=== PATIENT | male | born 1965 | race Caucasian/White ===

== ENCOUNTER 2016-04-01 15:35 | Inpatient (IN) | payer OTHER ==
[~2016-04-01] VITALS: Ht 170.2 cm; Wt 70.0 kg
[~2016-04-01 15:35] MED LIST: BACTDS PO; CARB100T2 PO; CEPH-443 PO; FLUO40CA10 PO; GABA300C16 PO; HYDR-902 PO; INSU100C SC; LANT3I SC; PHEN100C PO; QUET100T PO; TRAM50TA2 PO
[2016-04-01 16:15] VITALS: Ht 170.2 cm; Wt 70.0 kg
[2016-04-01] MEDS ORDERED: PIPER-TAZO 3.375 GM IV (PMX) 100 ML IVPB STA (21:11)
--- NOTE | 2016-04-01 21:28 | ERA ---
ER Documentation Chief Complaint Date/Time DATE: 04/01/16 TIME: 21:17 Chief Complaint RIGHT TOE DIABETIC FOOT ULCER,HX RIGHT TOE AMPUTATION HPI 51-year-old male with a history of bipolar disease, depression, seizure disorder , diabetes mellitus type 2, diabetic foot ulcers with osteomyelitis and chronic alcohol abuse but sober for 30 days ambulatory to the ED complaining of worsening pain, swelling, redness to the lateral aspect of his right foot and fifth toe. No recent history of trauma or injury. He had an MRI done March 28, 2016, impression: Osteomyelitis of the fifth metatarsal head and fifth proximal phalanx with associated prominent cellulitis, osteomyelitis of the first metatarsal bone and first proximal phalanx with associated prominent cellulitis progressive in the interval between studies and prominent tenosynovitis of the flexor hallux longus tendon. No chest pain or palpitations. No shortness of breath or cough. Denies abdominal pain, nausea vomiting. No fevers or chills. He is followed by Podiatry, Dr. Cline ROS All systems reviewed and are negative except as per history of present illness. Medications Home Meds Active Scripts Tramadol HCl (Tramadol HCl) 50 Mg Tablet, 50 MG PO Q6 Y for PAIN, #10 TAB Prov:LAINA CRUZ MD 12/28/15 Reported Medications Insulin Glargine* (Lantus*) 100 Unit/Ml Soln, 15 UNIT SC QHS, #1 VIAL 04/01/16 Gabapentin* (Gabapentin*) 300 Mg Capsule, 300 MG PO BID, #60 CAP 07/21/15 Carbamazepine* (Carbamazepine*) 100 Mg Tab.chew, 200 MG PO QAM, #60 TAB.CHEW 06/26/15 Quetiapine Fumarate* (Seroquel*) 100 Mg Tablet, 100 MG PO QHS, TAB 10/22/14 Fluoxetine Hcl* (Prozac*) 40 Mg Capsule, 40 MG PO QAM, CAP 10/22/14 Phenytoin* Sodium Extended (Dilantin*) 100 Mg Capsule, 300 MG PO BID, CAP 10/22/14 Insulin Lispro (Humalog) 100 U/Ml Cartridge, 0 SC SLIDING SCALE AC, EA 111-150 = 1 UNIT 151-200 = 2 UNITS 201-250 = 4 UNITS 251-300 = 6 UNITS 301-350 = 8 UNITS 351-400 = 10 UNITS 401-450 = 12 UNITS 10/22/14 Discontinued Scripts Sulfamethoxazole-Trimethoprim* (Bactrim* DS) 800-160 Mg Tab, 1 TAB PO BID for 7 Days, TAB Prov:LAINA CRUZ MD 12/28/15 Cephalexin* (Keflex*) 500 Mg Capsule, 500 MG PO QID for 7 Days, CAP Prov:LAINA CRUZ MD 12/28/15 Sulfamethoxazole-Trimethoprim* (Bactrim* DS) 800-160 Mg Tab, 1 TAB PO BID for 7 Days, TAB Prov:LAINA CRUZ MD 11/09/15 Cephalexin* (Keflex*) 500 Mg Capsule, 500 MG PO QID for 7 Days, CAP Prov:LAINA CRUZ MD 11/09/15 Hydrocodone/Acetaminophen (Sullivan 10-325 Tablet) 1 Each Tablet, 1 TAB PO Q6H Y for PAIN, #12 TAB Prov:LAINA CRUZ MD 11/09/15 Insulin Glargine* (Lantus*) 100 Unit/Ml Soln, 10 UNIT SC HS for 30 Days, 3 Refills Prov:TI TATE 07/28/15 Allergies Allergies: Coded Allergies: No Known Drug Allergy (Verified Allergy, Unknown, 04/01/16) PMhx/Soc Reviewed in chart. As per HPI. History of Surgery: Yes (RIGHT LEG , R R foot amputation.) Anesthesia Reaction: No Hx Neurological Disorder: Yes (SEIZURES) Hx Respiratory Disorders: No Hx Cardiac Disorders: Yes (HTN ,HIGH CHOLESTEROL) Hx Psychiatric Problems: Yes (depression/anxiety) Hx Alcohol Use: Yes (OCCASIONAL) Hx Substance Use: Yes Hx Tobacco Use: No Smoking Status: Former smoker FmHx Reviewed in chart. Not relevant to presenting complaint. Physical Exam Vitals Vital Signs Date Time Temp Pulse Resp B/P Pulse Ox O2 Delivery O2 Flow Rate FiO2 04/01/16 23:09 98.4 69 16 159/89 99 Room Air 04/01/16 22:20 98.4 78 16 142/84 98 Room Air 04/01/16 16:15 98.5 91 18 157/77 98 Physical Exam Const: Alert, no acute distress. Head: Atraumatic Eyes: Normal Conjunctiva ENT: Normal External Ears, Nose and Mouth. Neck: Full range of motion..~ No meningismus. Resp: Clear to auscultation bilaterally Cardio: Regular rate and rhythm, no murmurs Abd: Soft, non tender, non distended. Normal bowel sounds Skin: No petechiae or rashes Back: No midline or flank tenderness Ext: Right foot: Swelling, tenderness and erythema of the lateral aspect of the foot and fifth toe. Deep ulceration with skin avulsion. No subcutaneous crepitus. Neur: Awake and alert. No focal deficit. Psych: Normal Mood and Affect Result Diagram: 04/01/16212404/01/162124 Results 24 hrs Laboratory Tests Test 04/01/16 21:05 04/01/16 21:25 04/01/16 21:30 Carbamazepine (Tegretol) Level < 3.0ug/ml Phenytoin (Dilantin) Level < 3.0ug/ml Alanine Aminotransferase (ALT/SGPT) 56IU/L Albumin 4.6g/dl Albumin/Globulin Ratio 1.15 Alkaline Phosphatase 518IU/L Anion Gap 19 Aspartate Amino Transf (AST/SGOT) 29IU/L Basophils # 0.110^3/ul Basophils % 0.8% Blood Morphology Comment Blood Urea Nitrogen 18mg/dl Calcium Level 10.0mg/dl Carbon Dioxide Level 27mmol/L Chloride Level 92mmol/L Creatinine 0.89mg/dl Direct Bilirubin 0.00mg/dl Eosinophils # 0.310^3/ul Eosinophils % 2.6% Globulin 4.00g/dl Glucose Level 353mg/dl Hematocrit 36.1% Hemoglobin 12.2g/dl Indirect Bilirubin 0.0mg/dl Lymphocytes # 1.310^3/ul Lymphocytes % 11.7% Mean Corpuscular Hemoglobin 28.9pg Mean Corpuscular Hemoglobin Concent 33.7g/dl Mean Corpuscular Volume 85.8fl Mean Platelet Volume 8.7fl Monocytes # 0.810^3/ul Monocytes % 6.8% Neutrophils # 9.010^3/ul Neutrophils % 78.1% Nucleated Red Blood Cells # 0.010^3/ul Nucleated Red Blood Cells % 0.0/100WBC Platelet Count 03796^3/UL Potassium Level 4.8mmol/L Red Blood Count 4.2110^6/ul Red Cell Distribution Width 13.7% Sodium Level 133mmol/L Total Bilirubin 0.0mg/dl Total Protein 8.6g/dl White Blood Count 11.510^3/ul Bedside Glucose 349mg/dL Current Medications Medications (Trade) Dose Ordered Sig/Nidia Route PRN Reason Start Time Stop Time Status Last Admin Dose Admin Piperacillin Sod/ Tazobactam Sod 100 ml @ 200 mls/hr ONCE STAT IVPB 04/01/16 21:11 04/01/16 21:40 DC 04/01/16 21:41 Vancomycin HCl (Vancocin) 250 ml @ 125 mls/hr ONCE IVPB 04/01/16 21:30 04/01/16 23:29 DC 04/01/16 22:15 Acetaminophen/ Hydrocodone Bitart (Sullivan (10325)) 1 tab ONCE ONCE PO 04/01/16 22:30 04/01/16 22:31 DC 04/01/16 22:14 Ondansetron HCl (Zofran Inj) 4 mg BRIDGE ORDER PRN IV NAUSEA AND/OR VOMITING 04/01/16 22:30 04/02/16 22:29 Acetaminophen (Tylenol Tab) 650 mg ER BRIDGE PRN PO MILD PAIN/FEVER 04/01/16 22:30 04/02/16 22:29 Insulin Glargine (Lantus) 10 unit QHS SC 04/02/16 21:00 UNV Insulin Aspart (Novolog Insulin Pen) NOVOLOG *MILD* ALGORITHM WITH MEALS BEDTIME SC 04/02/16 08:00 UNV Miscellaneous Information (* Miscellaneous Pharmacy Order) HYPOGLYCEMIA PROTOCOL w... ONCE ONCE XX 04/02/16 01:00 04/02/16 01:01 UNV Miscellaneous Information (* Miscellaneous Pharmacy Order) Discontinue Glyburide, Glipizide,... ONCE ONCE XX 04/02/16 01:00 04/02/16 01:01 UNV Miscellaneous Information (* Miscellaneous Pharmacy Order) Discontinue all previ... ONCE ONCE XX 04/02/16 01:00 04/02/16 01:01 UNV Vancomycin HCl VANCOMYCIN PER PHARMACY PER PROTOCOL XX 04/02/16 01:00 UNV Piperacillin Sod/ Tazobactam Sod (Zosyn 3.375gm/ 100 ml (Pmx)) 100 ml @ 200 mls/hr Q8H IVPB 04/02/16 01:00 UNV Acetaminophen (Tylenol Tab) 650 mg Q4H PRN PO pain/fever 04/02/16 01:00 UNV Ondansetron HCl (Zofran Inj) 4 mg Q4H PRN IV nausea 04/02/16 01:00 UNV Morphine Sulfate (morphine) 4 mg Q4H PRN IV pain 04/02/16 01:00 UNV Carbamazepine (Tegretol) 200 mg QAM PO 04/02/16 09:00 UNV Fluoxetine HCl (Prozac) 40 mg QAM PO 04/02/16 09:00 UNV Gabapentin (Neurontin) 300 mg BID PO 04/02/16 09:00 UNV Phenytoin (Dilantin) 300 mg BID PO 04/02/16 09:00 UNV Quetiapine Fumarate (Seroquel) 100 mg QHS PO 04/02/16 21:00 UNV Procedures/MDM DOCUMENTS REVIEWED: ED nurse, prior ED, prior records ED COURSE: Wound culture. Zosyn and vancomycin. Sullivan 10. MEDICAL DECISION MAKIN-year-old male with a history of bipolar disease, depression, seizure disorder, diabetes mellitus type 2, diabetic foot ulcers with osteomyelitis and chronic alcohol abuse but sober for 30 days ambulatory to the ED complaining of worsening pain, swelling, redness to the lateral aspect of his right foot and fifth toe. Patient with worsening cellulitis and MRI confirmed osteomyelitis of the right foot. No ascending lymphangitis or necrotizing fasciitis. No criteria for systemic inflammatory response syndrome or sepsis. Hyperglycemia without DKA. Patient just drank a Dr. Pepper prior to blood draw. Will require admission for intravenous antibiotics, podiatry consult, further evaluation and management. Counseled patient regarding diagnosis, diagnostic results and plan for admission. CALLS/CONSULTS: Time 22:15, Dr. Marek Plata, Recommends admission to [facility]. PATIENT CARE TRANSITIONED: Time: 22:30, Dr. Jara Departure Diagnosis: Primary Impression: Osteomyelitis of right foot Qualified Code: M86.9 - Osteomyelitis of right foot, unspecified chronicity Additional Impressions: Diabetes mellitus type 2 in nonobese Hyperglycemia due to type 2 diabetes mellitus Qualified Code: E11.65 - Type 2 diabetes mellitus with hyperglycemia, with long-term current use of insulin Cellulitis of right foot History of seizure disorder History of alcohol abuse Diabetic foot infection Condition: Serious ROSANNE GUADALUPE MD Apr 01, 2016 21:28
[2016-04-01] MEDS ORDERED: VANCOMYCIN 1 GM (PMX) 250 ML IVPB SCH (21:30)
[2016-04-01] MEDS ORDERED: LANT3I SC (21:36)
[2016-04-01 21:56] LABS: BASOPHIL # 0.1 10^3/ul (0.0-0.1); BASOPHILS % 0.8 % (0.0-2.0); EOSINOPHILS # 0.3 10^3/ul (0.0-0.5); EOSINOPHILS % 2.6 % (0.0-7.0); HEMATOCRIT 36.1 % (42.0-52.0); HEMOGLOBIN 12.2 g/dl (14.0-18.0); LYMPHOCYTES # 1.3 10^3/ul (0.8-2.9); LYMPHOCYTES % 11.7 % (15.0-51.0); MEAN CORPUSCULAR HEMOGLOBIN 28.9 pg (29.0-33.0); MEAN CORPUSCULAR HGB CONC 33.7 g/dl (32.0-37.0); MEAN CORPUSCULAR VOLUME 85.8 fl (82.0-101.0); MEAN PLATELET VOLUME 8.7 fl (7.4-10.4); MONOCYTE # 0.8 10^3/ul (0.3-0.9); MONOCYTES % 6.8 % (0.0-11.0); NEUTROPHILS % 78.1 % (39.0-77.0); PLATELET COUNT 460 10^3/UL (140-440); RED BLOOD COUNT 4.21 10^6/ul (4.70-6.10); RED CELL DISTRIBUTION WIDTH 13.7 % (11.5-14.5); UNCORRECTED WBC 11.5 10^3/ul (4.8-10.8); WHITE BLOOD COUNT 11.5 10^3/ul (4.8-10.8)
[2016-04-01 21:59] LABS: ALBUMIN 4.6 g/dl (3.3-4.9)
[2016-04-01 22:00] LABS: POTASSIUM 4.8 mmol/L (3.5-5.1)
[2016-04-01 22:02] LABS: ALBUMIN/GLOBULIN RATIO 1.15; CONDITION 1; CREATININE 0.89 mg/dl (0.61-1.24); TOTAL PROTEIN 8.6 g/dl (6.1-8.1)
[2016-04-01 22:24] LABS: CARBAMAZEPINE (TEGRETOL) < 3.0 ug/ml (8.0-12.0)
[2016-04-01] MEDS ORDERED: HYDROCODONE/APAP (10/325) TAB PO ONE (22:30)
[2016-04-01] MEDS ORDERED: ONDANSETRON 4 MG INJ IV PRN (22:30)
[2016-04-01] MEDS ORDERED: ACETAMINOPHEN 325 MG TAB PO PRN (22:30)
--- NOTE | 2016-04-01 23:32 | RADRPT ---
PROCEDURE: XR Foot. CLINICAL INDICATION: Trauma. TECHNIQUE: AP, lateral and oblique views of the right foot was obtained. COMPARISON: 07/25/2015 FINDINGS: Previous amputation of the second digit at the metatarsophalangeal joint is noted. There is new tad truction of the base of the first proximal phalanx and distal metatarsal bone with surrounding perio steal reaction. Patchy lucencies are noted throughout the fifth phalanx. There is regional soft tiss ue swelling. IMPRESSION: Osteomyelitis of the first metatarsal bone and proximal phalanx as well as the fifth phalanx. RPTAT: HIKT .Rusty Mishra MD, MD Date Time Electronically viewed and signed by .Rusty Mishra MD, on 04/01/2016 23:31 .T/
--- NOTE | 2016-04-02 00:51 | QN ---
Documentation Comment H&P dict a/p 1. osteomyelitis noted on recent outpatient MRI, plan pods eval and anticipate surgical debridement. Patient is NOT a good candidate for home health IV and refuses institutional placement 2. DM 3. sseizure disorder ESTELA MALDONADO MD Apr 02, 2016 00:51
[2016-04-02] MEDS ORDERED: VANCOMYCIN IV PER PHARMACY XX SCH (01:00)
[2016-04-02] MEDS: AMLODIPINE 5 MG TAB PO SCH ×3 (01:00→22:17)
[2016-04-02] MEDS: PIPER-TAZO 3.375 GM IV (PMX) 100 ML IVPB SCH ×3 (01:00→17:55)
[2016-04-02] MEDS ORDERED: DEXTROSE 50% 50 ML SYRINGE IV PRN ×2 (01:30)
[2016-04-02] MEDS ORDERED: GLUCOSE GEL 15 GRAM TUBE PO PRN ×2 (01:30)
[2016-04-02] MEDS ORDERED: GLUCAGON 1 MG INJ IM PRN (01:30)
[2016-04-02] MEDS ORDERED: GLUCOSE GEL 15 GRAM TUBE BUCCAL PRN (01:30)
--- NOTE | 2016-04-02 01:35 | RADRPT ---
PROCEDURE: US bilateral lower extremity venous Doppler CLINICAL INDICATION: Bilateral swelling TECHNIQUE: Multiple sonographic images of the bilateral lower extremity deep venous system was obt ained utilizing grayscale, color-flow, compressive sonography and Doppler imaging with augmentation. COMPARISON: There are no similar studies submitted for comparison. FINDINGS: There is normal compressibility and flow within the bilateral common femoral, superficial femoral, p opliteal, and calf veins. IMPRESSION: No evidence of DVT within the lower extremities. RPTAT: HIKT .Rusty Mishra MD, MD Date Time Electronically viewed and signed by .Rusty Mishra MD, MD on 04/02/2016 01:35 .T/
[2016-04-02] MEDS: morphine 4 MG/ML VIAL IV PRN ×5 (01:45→22:23)
[2016-04-02] MEDS ORDERED: ACCUCHECK AT 2AM (Patients on SS coverage) XX SCH (02:00)
[2016-04-02] MEDS: INSULIN ASPART [NOVOLOG] 3 ML PEN SC SCH ×5 (05:20→22:22)
[2016-04-02] MEDS ORDERED: ENALAPRILAT 1.25 MG INJ IV ONE (05:30)
[2016-04-02] MEDS: ONDANSETRON 4 MG INJ IV PRN (05:33)
[2016-04-02] MEDS: VANCOMYCIN 1 GM in NS 250 ML IVPB SCH ×2 (05:33→17:55)
--- NOTE | 2016-04-02 05:35 | HP ---
DATE OF ADMISSION: 04/01/2016 CHIEF COMPLAINT: Right foot pain and swelling. HISTORY OF PRESENT ILLNESS: Mr. Bedolla presents to the emergency room at [facility] with p ain in the right foot and swelling in the same location, which he states has been present for some t roxane; he does not remember exactly how long. He has been seeing his primary care doctor and his podi atrist about this. He was referred for an MRI scan and he brings the report with him. The report s hows a collection of fluid around the head of the first and the fifth metatarsal, consistent with os teomyelitis. The patient has a prior diagnosis of osteomyelitis and was admitted to this hospital l july, where he had an amputation of the 2nd toe. PAST MEDICAL HISTORY: Significant for diabetes mellitus, using insulin, hypertension, seizure disor pearl. MEDICATIONS IN OUTPATIENT: Include: 1. Lantus 15 units daily, sliding scale. 2. Tegretol 200 mg daily. 3. Prozac 40 mg daily. 4. Neurontin 300 mg b.i.d. 5. Phenytoin 300 mg b.i.d. 6. Seroquel 100 mg at bedtime. 7. Tramadol p.r.n. ALLERGIES: NO KNOWN DRUG ALLERGIES. SOCIAL HISTORY: Patient lives at home in [place] by himself. He denies tobacco or illicit drug us e. States he is 30 days clean from alcohol at this point in time. FAMILY HISTORY: Noncontributory. REVIEW OF SYSTEMS: Five systems reviewed and found not to be revealing. PHYSICAL EXAMINATION: VITAL SIGNS: Blood pressure is 159/89, pulse rate 69, respirations 16, temperature is 98.4. GENERAL: Pleasant man in no acute distress. Alert and oriented x3. HEENT: Normocephalic, atraumatic without evident scleral icterus, perioral cyanosis. Mucous membra boo are moist. NECK: Soft and supple without masses. No evidence of jugular venous distention or carotid bruits. CHEST: Clear to auscultation and percussion bilaterally. HEART: Regular rate and rhythm, S1-S2, no added sounds. ABDOMEN: Soft, nontender, nondistended without palpable hepatosplenomegaly. EXTREMITIES: Without clubbing or cyanosis. There is right greater than left leg edema. The right foot shows a well-healed scar at the location of the prior second toe amputation. There is severe s welling without any discoloration of the great toe in the first MTP joint. There is, similarly, swe lling with an area of small ulceration on the lateral aspect of the fifth toe with a great deal of w johan discoloration and maceration of the skin in this location with great pain with manipulation of the toe. SKIN: Otherwise, without rashes. NEUROLOGIC: Cranial nerves III through XII are intact. Tone, power, and coordination intact x4 garza bs. Interestingly, the patient appears to have intact sensation of both feet. LABORATORY STUDIES: Reveal a hemoglobin of 12.2 g/dL, white count 11,500, platelets of 160,000. So dium 133, potassium 4.8, chloride 92, bicarbonate 27, BUN 18, creatinine 0.89, glucose 353. Liver f unction tests revealed AST 29, ALT 56, alkaline phosphatase 518, total bilirubin 0.0. Foot x-ray co nfirms the findings as reported in the MRI with osteomyelitis of the 1st and 5th metatarsals. ASSESSMENT AND PLAN: 1. Osteomyelitis of the foot. Will obtain podiatry evaluation. Anticipate the patient will requir e surgical debridement. Start antibiotics at this time. 2. Diabetes. Continue Lantus, Accu-Cheks, and sliding scale. 3. Hypertension, add medications. 4. Rule out deep venous thrombosis, right leg, in light of swelling. 5. Hypertension, add current medication. 6. Prophylaxis with Lovenox after determination of need for surgical treatment. Dictated By: ESTELA MALDONADO MD RER/NTS Conf#: [id number] DID#: [id number]
[2016-04-02 07:45] VITALS: TEMP 98
[2016-04-02 08:11] VITALS: BP 161/101; RESP 20
[2016-04-02] MEDS: GABAPENTIN 300 MG CAP PO SCH ×2 (09:53→22:16)
[2016-04-02] MEDS: FLUOXETINE 20 MG CAP PO SCH (09:53)
[2016-04-02] MEDS: carBAMAZepine CHEW 100 MG CHEW PO SCH (09:53)
[2016-04-02] MEDS: PHENYTOIN 100 MG CAP PO SCH ×2 (09:53→22:17)
--- NOTE | 2016-04-02 10:14 | PN ---
Date/Time of Note Date/Time of Note DATE: 04/02/16 TIME: 09:53 Assessment/Plan VTE Prophylaxis VTE Prophylaxis Intervention: LMWH Lines/Catheters IV Catheter Type (from Nrsg): Peripheral IV Assessment/Plan Assessment/Plan 51 yo male with; 1. Right foot osteomyelitis/cellulitis. Already confirmed on outpatient MRI and agian on XR here last night. Doppler negative for DVT On IV abx, check ESR and ID consult Podiatry consult with Dr Cline who has seen the patient previously , vascular consult as needed. 2. Diabetes Mellitus. Uncontrolled, continue Lantus, Accu-Cheks, and sliding scale. BG better this AM. Check A1c 3. Hypertension, start ARB for BP control and continue pain control 4. Bipolar disorder; continue outpatient medications 5. ETOH abuse history, patient has been sober for 1 month now and determined to remain so Prophylaxis: Lovenox for dvt ppx and Pepcid for GI ppx . Disposition: Podiatry consult today Subjective 24 Hr Interval Summary Free Text/Dictation Patient doing well, all things considered today Pain right foot noted and known osteomyelitis on MRI last week IV abx started Patient well known to Dr Cline Exam/Review of Systems Vital Signs Vitals Vital Signs Date Time Temp Pulse Resp B/P Pulse Ox O2 Delivery O2 Flow Rate FiO2 04/02/16 08:11 97.4 82 20 161/101 99 04/02/16 07:45 Room Air Exam Constitutional: alert, oriented, well developed Respiratory: clear to auscultation, normal air movement Cardiovascular: nl pulses, regular rate and rhythm Gastrointestinal: non-tender, soft Musculoskeletal: other (right foot cellulitis and 5th toe osteo/gangrene ) Neurological: CHANGE ROOM ATTENDANT II-XII intact, nl mental status, nl speech, nl strength Results Result Diagram: 04/01/16212404/01/162124 Results 24 hrs Laboratory Tests Test 04/01/16 21:05 04/01/16 21:25 04/01/16 21:30 04/02/16 03:31 Carbamazepine (Tegretol) Level < 3.0 L Phenytoin (Dilantin) Level < 3.0 L Alanine Aminotransferase (ALT/SGPT) 56 Albumin 4.6 Albumin/Globulin Ratio 1.15 Alkaline Phosphatase 518 H Anion Gap 19 H Aspartate Amino Transf (AST/SGOT) 29 Basophils # 0.1 Basophils % 0.8 Blood Morphology Comment Blood Urea Nitrogen 18 Calcium Level 10.0 Carbon Dioxide Level 27 Chloride Level 92 L Creatinine 0.89 Direct Bilirubin 0.00 Eosinophils # 0.3 Eosinophils % 2.6 Globulin 4.00 H Glucose Level 353 H Hematocrit 36.1 L Hemoglobin 12.2 L Indirect Bilirubin 0.0 Lymphocytes # 1.3 Lymphocytes % 11.7 L Mean Corpuscular Hemoglobin 28.9 L Mean Corpuscular Hemoglobin Concent 33.7 Mean Corpuscular Volume 85.8 Mean Platelet Volume 8.7 Monocytes # 0.8 Monocytes % 6.8 Neutrophils # 9.0 H Neutrophils % 78.1 H Nucleated Red Blood Cells # 0.0 Nucleated Red Blood Cells % 0.0 Platelet Count 460 #H Potassium Level 4.8 Red Blood Count 4.21 L Red Cell Distribution Width 13.7 Sodium Level 133 L Total Bilirubin 0.0 L Total Protein 8.6 H White Blood Count 11.5 #H Bedside Glucose 349 H 255 H Test 04/02/16 05:16 04/02/16 09:36 Bedside Glucose 327 H 158 Medications Medications Current Medications Insulin Glargine 10 unit 10 unit QHS SC ; Start 04/02/16 at 21:00 Piperacillin Sod/ Tazobactam Sod (Zosyn 3.375gm/ 100 ml (Pmx)) 100 ml @ 200 mls /hr Q8H IVPB ; Start 04/02/16 at 01:00 Acetaminophen (Tylenol Tab) 650 mg Q4H PRN PO pain/fever; Start 04/02/16 at 01: 00 Ondansetron HCl (Zofran Inj) 4 mg Q4H PRN IV nausea Last administered on 05:33; Admin Dose 4 MG; Start 04/02/16 at 01:00 Morphine Sulfate (morphine) 4 mg Q4H PRN IV pain Last administered on 05:33; Admin Dose 4 MG; Start 04/02/16 at 01:00 Carbamazepine (Tegretol) 200 mg QAM PO ; Start 04/02/16 at 09:00 Fluoxetine HCl (Prozac) 40 mg QAM PO ; Start 04/02/16 at 09:00 Gabapentin (Neurontin) 300 mg BID PO ; Start 04/02/16 at 09:00 Phenytoin (Dilantin) 300 mg BID PO ; Start 04/02/16 at 09:00 Quetiapine Fumarate (Seroquel) 100 mg QHS PO ; Start 04/02/16 at 21:00 Amlodipine Besylate (Norvasc) 5 mg BID PO Last administered on 04/02/16 01:00 ; Admin Dose 5 MG; Start 04/02/16 at 01:00 Diagnostic Test (Pha) (Accucheck) 1 ea 02 XX ; Start 04/02/16 at 02:00 Miscellaneous Information 1 ea NOTE XX ; Start 04/02/16 at 01:30 Glucose (Glutose) 15 gm Q15M PRN PO DECREASED GLUCOSE; Start 04/02/16 at 01:30 Glucose (Glutose) 22.5 gm Q15M PRN PO DECREASED GLUCOSE; Start 04/02/16 at 01: 30 Dextrose (D50w Syringe) 25 ml Q15M PRN IV DECREASED GLUCOSE; Start 04/02/16 at 01:30 Dextrose (D50w Syringe) 50 ml Q15M PRN IV DECREASED GLUCOSE; Start 04/02/16 at 01:30 Glucagon (Glucagen) 1 mg Q15M PRN IM DECREASED GLUCOSE; Start 04/02/16 at 01:30 Glucose 15 gm 15 gm Q15M PRN BUCCAL DECREASED GLUCOSE; Start 04/02/16 at 01:30 Vancomycin HCl (Vancocin) 250 ml @ 125 mls/hr Q12H IVPB Last administered on 05:33; Admin Dose 125 MLS/HR; Start 04/02/16 at 06:00 Miscellaneous Information (*Rx Drug Level Order Reminder*) VANCOMYCIN TROUGH LEVEL... ONCE ONCE XX ; Start 04/03/16 at 17:00; Stop 04/03/16 at 17:01 TI TATE Apr 02, 2016 10:04
[2016-04-02 10:57] VITALS: BP 150/93; PULSE 77
--- NOTE | 2016-04-02 15:45 | CONS ---
DATE OF ADMISSION: 04/01/2016 DATE OF CONSULTATION: 04/02/2016 TYPE OF CONSULTATION: Infectious Disease. REASON FOR CONSULTATION: Antibiotic management. HISTORY OF PRESENT ILLNESS: Husam Bedolla is a 51-year-old male who comes in with right foot pain an d swelling. PAST MEDICAL HISTORY: His past problems include: 1. Adult-onset diabetes mellitus. 2. Hypertension. 3. Seizure disorder. 4. Insulin-dependent. 5. Peripheral neuropathy. 6. Depression. The patient has been seeing his primary care doctor and [employer] about his foot pain and swelling. An MRI was done which showed a collection of fluid around the head of the 1st and 5th metatarsal c onsistent with osteomyelitis. The patient has a prior diagnosis of osteomyelitis, was admitted to [facility] last July where he had an amputation of the 2nd toe. PAST MEDICAL HISTORY: Operations as outlined. FAMILY HISTORY: Noncontributory. SOCIAL HISTORY: He denies tobacco or drug use. He has not had a drink in 30 days. ALLERGIES: NONE TO PENICILLIN, SULFA OR FOODS. MEDICATIONS: Per chart. REVIEW OF SYSTEMS: Noncontributory. PHYSICAL EXAMINATION: GENERAL: The patient is a well-developed, well-nourished male who is alert, responsive, in no acute distress. VITAL SIGNS: Stable. He is afebrile. SKIN: Without generalized rash. HEENT: Within normal limits. NECK: Supple. LYMPH NODES: None palpable. CHEST: Decreased breath sounds at the bases. HEART: Without murmur or gallop. ABDOMEN: Soft, nontender, without organosplenomegaly or masses. EXTREMITIES: Without cyanosis, clubbing, or edema. Actually he does have some edema, right greater than left. The right foot shows a well-healed scar at the location of prior second toe amputation. There is severe swelling of the great toe at the MTP joint, first MTP joint. There is also swelli ng with an area of ulceration on the lateral aspect of the fifth toe with white discoloration and ma ceration. RECTAL AND GENITAL: Deferred. NEUROLOGIC: No focal neurological abnormalities. ANCILLARY LABORATORY DATA: White count 11,500, hemoglobin 12.2, platelet count 160,000. BUN and cr eatinine is 18/0.89, glucose 353, AST 29, ALT 56, alkaline phosphatase 518, total bilirubin 0. X-ray confirms the finding is reported as reported on the MRI with osteomyelitis of the first and fi fth toes. Patient has confirmed osteomyelitis. His white count today is 11.5, BUN and creatinine 18/0.89. The patient is on vancomycin and Zosyn. His DVT studies are negative. We will continue him on this regimen, await tender podiatric evaluat ion. Dictated By: JOANNE REYNOSO MD, JD/VICENTE Conf#: [id number] DID#: [id number]
--- NOTE | 2016-04-02 18:46 | CONS ---
Date/Time of Note Date/Time of Note DATE: 04/02/16 TIME: 18:39 Assessment/Plan Assessment/Plan Problems: (1) Osteomyelitis of toe of right foot (2) Abscess of right foot (3) Peripheral vascular disease (4) Diabetes mellitus type 2 in nonobese Status: Acute (5) Toe infection (6) Depression Status: Acute Additional Assessment/Plan I have reviewed patient's MRI which shows complete signal intensity increase in the fifth toe of the right foot and abscess of the first MPJ with destruction of the first MPJ. My recommendation is amputation of the right fifth toe with incision and drainage of the right foot. Patient is scheduled tentatively for tomorrow evening. Patient will have orders for n.p.o. after breakfast and consent for amputation of the right fifth toe and incision and drainage of the right foot abscess. Patient's prognosis is guarded. He is at risk for limb loss. Continue IV antibiotics. Patient will be followed in-house. Consultation Date/Type/Reason Admit Date/Time Apr 01, 2016 at 22:25 Date of Consultation: Apr 02, 2016 Type of Consultation: Foot and ankle surgery Reason for Consultation Right fifth toe infection Hx of Present Illness Thank you very much for involving me in the care of this patient. As you very well know this is a male patient who is committed to my practice who presented to the emergency room with an infected right fifth toe. He says that about 2 days ago he started to have pain in swelling in the right fifth toe. He says he try to take care of toe but the pain got worse and got panicky and came to the emergency room. He says that on the the MRI of the right foot which was ordered previously which showed bone infection. His past medical history is significant for diabetes mellitus with peripheral neuropathy and peripheral vascular disease, diabetes mellitus, hypertension, seizure disorder, previous history of foot surgery including right second toe amputation. As per history of present illness. Past Medical History As per history of present illness. Past Surgical History As per history of present illness. Social History Smoking Status: Former smoker Exam/Review of Systems Vital Signs Vitals Vital Signs Date Time Temp Pulse Resp B/P Pulse Ox O2 Delivery O2 Flow Rate FiO2 04/02/16 10:57 77 150/93 04/02/16 08:11 97.4 20 99 04/02/16 07:45 Room Air Exam Patient is in no acute distress laying supine in bed. Bandages were removed from the right foot. Right fifth toe gangrene noted with maceration and malodor. Purulent drainage noted. No bleeding. The right fifth toe is tender to palpation. Patient is status post right second toe amputation well-healed. There is edema of the forefoot. MRI that the patient brought into the hospital was reviewed which shows osteomyelitis involving the entire fifth toe and fifth MPJ. There is significant purulence noted in the first MPJ as well with degenerative changes. Dorsalis pedis and posterior tibial pulses weakly palpable. Significant decrease in protective sensation noted bilateral feet. Labs and imaging reviewed. Patient is currently on IV antibiotics including Zosyn and vancomycin. Results Result Diagram: 04/01/16212404/01/162124 Results 24 hrs Laboratory Tests Test 04/01/16 21:05 04/01/16 21:25 04/01/16 21:30 04/02/16 03:31 Carbamazepine (Tegretol) Level < 3.0 L Phenytoin (Dilantin) Level < 3.0 L Alanine Aminotransferase (ALT/SGPT) 56 Albumin 4.6 Albumin/Globulin Ratio 1.15 Alkaline Phosphatase 518 H Anion Gap 19 H Aspartate Amino Transf (AST/SGOT) 29 Basophils # 0.1 Basophils % 0.8 Blood Morphology Comment Blood Urea Nitrogen 18 Calcium Level 10.0 Carbon Dioxide Level 27 Chloride Level 92 L Creatinine 0.89 Direct Bilirubin 0.00 Eosinophils # 0.3 Eosinophils % 2.6 Globulin 4.00 H Glucose Level 353 H Hematocrit 36.1 L Hemoglobin 12.2 L Indirect Bilirubin 0.0 Lymphocytes # 1.3 Lymphocytes % 11.7 L Mean Corpuscular Hemoglobin 28.9 L Mean Corpuscular Hemoglobin Concent 33.7 Mean Corpuscular Volume 85.8 Mean Platelet Volume 8.7 Monocytes # 0.8 Monocytes % 6.8 Neutrophils # 9.0 H Neutrophils % 78.1 H Nucleated Red Blood Cells # 0.0 Nucleated Red Blood Cells % 0.0 Platelet Count 460 #H Potassium Level 4.8 Red Blood Count 4.21 L Red Cell Distribution Width 13.7 Sodium Level 133 L Total Bilirubin 0.0 L Total Protein 8.6 H White Blood Count 11.5 #H Bedside Glucose 349 H 255 H Test 04/02/16 05:16 04/02/16 09:36 04/02/16 12:08 1/31/17 13:00 Bedside Glucose 327 H 158 179 C-Reactive Protein 3.3 H Erythrocyte Sedimentation Rate 70.0 H Hemoglobin A1c 11.6 H Test 04/02/16 17:24 Bedside Glucose 249 H Medications Medications Current Medications Insulin Glargine 10 unit 10 unit QHS SC ; Start 04/02/16 at 21:00 Piperacillin Sod/ Tazobactam Sod (Zosyn 3.375gm/ 100 ml (Pmx)) 100 ml @ 200 mls /hr Q8H IVPB Last administered on 04/02/16 17:55; Admin Dose 200 MLS/HR; Start 04/02/16 at 01:00 Acetaminophen (Tylenol Tab) 650 mg Q4H PRN PO pain/fever; Start 04/02/16 at 01: 00 Ondansetron HCl (Zofran Inj) 4 mg Q4H PRN IV nausea Last administered on 05:33; Admin Dose 4 MG; Start 04/02/16 at 01:00 Morphine Sulfate (morphine) 4 mg Q4H PRN IV pain Last administered on 10:47; Admin Dose 4 MG; Start 04/02/16 at 01:00 Carbamazepine (Tegretol) 200 mg QAM PO Last administered on 04/02/16 09:53; Admin Dose 200 MG; Start 04/02/16 at 09:00 Fluoxetine HCl (Prozac) 40 mg QAM PO Last administered on 04/02/16 09:53; Admin Dose 40 MG; Start 04/02/16 at 09:00 Gabapentin (Neurontin) 300 mg BID PO Last administered on 04/02/16 09:53; Admin Dose 300 MG; Start 04/02/16 at 09:00 Phenytoin (Dilantin) 300 mg BID PO Last administered on 04/02/16 09:53; Admin Dose 300 MG; Start 04/02/16 at 09:00 Quetiapine Fumarate (Seroquel) 100 mg QHS PO ; Start 04/02/16 at 21:00 Amlodipine Besylate (Norvasc) 5 mg BID PO Last administered on 04/02/16 09:53 ; Admin Dose 5 MG; Start 04/02/16 at 01:00 Diagnostic Test (Pha) (Accucheck) 1 ea 02 XX ; Start 04/02/16 at 02:00 Miscellaneous Information 1 ea NOTE XX ; Start 04/02/16 at 01:30 Glucose (Glutose) 15 gm Q15M PRN PO DECREASED GLUCOSE; Start 04/02/16 at 01:30 Glucose (Glutose) 22.5 gm Q15M PRN PO DECREASED GLUCOSE; Start 04/02/16 at 01: 30 Dextrose (D50w Syringe) 25 ml Q15M PRN IV DECREASED GLUCOSE; Start 04/02/16 at 01:30 Dextrose (D50w Syringe) 50 ml Q15M PRN IV DECREASED GLUCOSE; Start 04/02/16 at 01:30 Glucagon (Glucagen) 1 mg Q15M PRN IM DECREASED GLUCOSE; Start 04/02/16 at 01:30 Glucose 15 gm 15 gm Q15M PRN BUCCAL DECREASED GLUCOSE; Start 04/02/16 at 01:30 Vancomycin HCl (Vancocin) 250 ml @ 125 mls/hr Q12H IVPB Last administered on t 17:55; Admin Dose 125 MLS/HR; Start 04/02/16 at 06:00 Miscellaneous Information (*Rx Drug Level Order Reminder*) VANCOMYCIN TROUGH LEVEL... ONCE ONCE XX ; Start 04/03/16 at 17:00; Stop 04/03/16 at 17:01 Losartan Potassium (Cozaar) 25 mg BID PO ; Start 04/02/16 at 21:00 Influenza Virus Vaccine (Fluzone) 0.5 ml ONCE ONCE IM* ; Start 04/03/16 at 09:00 ; Stop 04/03/16 at 09:01 TIMUR FRANKLIN DPM Apr 02, 2016 18:46
[2016-04-02 20:52] VITALS: BP 137/72; RESP 18
[2016-04-02] MEDS ORDERED: INSULIN GLARGINE [LANtus] 3 ML PEN SC SCH (21:00)
[2016-04-02] MEDS: QUETIAPINE 100 MG TAB PO SCH (22:17)
[2016-04-02] MEDS: LOSARTAN 25 MG TAB PO SCH (22:17)
[2016-04-02] MEDS: INSULIN GLARGINE [LANtus] 3 ML PEN SC SCH (22:30)
[2016-04-03] VITALS (18 sets, daily range): BP systolic 114–159; BP diastolic 74–94; PULSE 76–91; RESP 11–25
[2016-04-03] MEDS: PIPER-TAZO 3.375 GM IV (PMX) 100 ML IVPB SCH ×3 (01:46→17:45)
[2016-04-03] MEDS: ACCUCHECK XX SCH (01:46)
[2016-04-03] MEDS ORDERED: ACCUCHECK XX SCH (02:00)
[2016-04-03] MEDS: VANCOMYCIN 1 GM in NS 250 ML IVPB SCH ×2 (05:35→17:45)
[2016-04-03 06:16] LABS: BASOPHILS % 0.3 % (0.0-2.0); EOSINOPHILS # 0.3 10^3/ul (0.0-0.5); EOSINOPHILS % 2.9 % (0.0-7.0); HEMATOCRIT 33.5 % (42.0-52.0); HEMOGLOBIN 11.4 g/dl (14.0-18.0); LYMPHOCYTES # 1.1 10^3/ul (0.8-2.9); LYMPHOCYTES % 12.5 % (15.0-51.0); MEAN CORPUSCULAR HEMOGLOBIN 29.2 pg (29.0-33.0); MEAN CORPUSCULAR HGB CONC 33.9 g/dl (32.0-37.0); MEAN CORPUSCULAR VOLUME 85.9 fl (82.0-101.0); MEAN PLATELET VOLUME 8.3 fl (7.4-10.4); MONOCYTE # 0.7 10^3/ul (0.3-0.9); MONOCYTES % 7.5 % (0.0-11.0); NEUTROPHIL # 6.8 10^3/ul (1.6-7.5); NEUTROPHILS % 76.8 % (39.0-77.0); PLATELET COUNT 454 10^3/UL (140-440); RED CELL DISTRIBUTION WIDTH 13.7 % (11.5-14.5); UNCORRECTED WBC 8.9 10^3/ul (4.8-10.8); WHITE BLOOD COUNT 8.9 10^3/ul (4.8-10.8)
[2016-04-03 06:38] LABS: CONDITION 1
[2016-04-03 06:46] LABS: MAGNESIUM 1.7 mg/dl (1.7-2.5); PHOSPHORUS 5.4 mg/dl (2.5-4.9)
[2016-04-03 06:47] LABS: ALBUMIN 3.5 g/dl (3.3-4.9); POTASSIUM 4.5 mmol/L (3.5-5.1)
[2016-04-03 06:49] LABS: CREATININE 1.37 mg/dl (0.61-1.24)
[2016-04-03 06:50] LABS: ALBUMIN/GLOBULIN RATIO 0.92; BILIRUBIN,INDIRECT 0.1 mg/dl (0-1.1); BILIRUBIN,TOTAL 0.1 mg/dl (0.2-1.3); CALCIUM 9.4 mg/dl (8.4-10.2); TOTAL PROTEIN 7.3 g/dl (6.1-8.1)
[2016-04-03] MEDS: INSULIN ASPART [NOVOLOG] 3 ML PEN SC SCH ×5 (07:49→21:00)
[2016-04-03] MEDS ORDERED: INFLUENZA VIRUS VACCINE 0.5 ML (DISPENSING) IM* ONE (09:00)
[2016-04-03] MEDS: AMLODIPINE 5 MG TAB PO SCH ×2 (09:00→21:00)
[2016-04-03] MEDS: FLUOXETINE 20 MG CAP PO SCH (09:07)
[2016-04-03] MEDS: carBAMAZepine CHEW 100 MG CHEW PO SCH (09:07)
[2016-04-03] MEDS: GABAPENTIN 300 MG CAP PO SCH ×2 (09:07→21:00)
[2016-04-03] MEDS: PHENYTOIN 100 MG CAP PO SCH ×2 (09:08→21:00)
[2016-04-03] MEDS: LOSARTAN 25 MG TAB PO SCH ×2 (09:08→21:00)
[2016-04-03] MEDS: morphine 4 MG/ML VIAL IV PRN ×3 (09:09→23:55)
[2016-04-03] MEDS ORDERED: SOD CHLORIDE 0.9% 1,000 ML IV SCH (12:00)
--- NOTE | 2016-04-03 14:40 | PN ---
Date/Time of Note Date/Time of Note DATE: 04/03/16 TIME: 14:31 Assessment/Plan VTE Prophylaxis VTE Prophylaxis Intervention: SCD's Lines/Catheters IV Catheter Type (from Nrsg): Peripheral IV Urinary Cath still in place: No Assessment/Plan Assessment/Plan 51 yo male with; 1. Right foot osteomyelitis/cellulitis. Already confirmed on outpatient MRI and agian on XR here last night. Doppler negative for DVT On IV abx, elevated ESR To OR tonight with Dr Cline Appreciate ID recs. 2. Diabetes Mellitus. Uncontrolled, with A1C of 11.6 ....Lantus increased to 25 u qhs and also on Novolog 5 u QAC and SSI. 3. Hypertension, controlled on Cozaar and Norvasc Continue pain control 4. Bipolar disorder; continue outpatient medications 5. ETOH abuse history, patient has been sober for 1 month now and determined to remain so 6. Mild HAZEL today: monitor, IVF for now Prophylaxis: Lovenox for dvt ppx and Pepcid for GI ppx . Disposition: to OR with Dr Guevara today Subjective 24 Hr Interval Summary Free Text/Dictation Patient remains stable To OR today with Podiatry On IV aBx and appreciate ID and podiatry recommendations Exam/Review of Systems Vital Signs Vitals Vital Signs Date Time Temp Pulse Resp B/P Pulse Ox O2 Delivery O2 Flow Rate FiO2 04/03/16 08:16 98.2 73 16 115/74 92 04/02/16 07:45 Room Air Intake and Output 04/02/16 04/02/16 04/03/16 15:00 23:00 07:00 Intake Total 250 ml 1530 ml 100 ml Balance 250 ml 1530 ml 100 ml Exam Constitutional: alert, oriented, well developed Respiratory: clear to auscultation, normal air movement Cardiovascular: nl pulses, regular rate and rhythm Gastrointestinal: non-tender, soft Musculoskeletal: nl extremities to inspection, other (right fifth toe gangrene and osteomyelitis ) Extremities: normal pulses, other (no edema, clubbing or cyanosis ) Neurological: MANAGER TRAVEL II-XII intact, nl mental status, nl speech, nl strength Results Result Diagram: 04/03/16 0525 04/03/16 0525 Results 24 hrs Laboratory Tests Test 04/02/16 17:24 04/02/16 20:31 04/03/16 01:45 04/03/16 05:25 Bedside Glucose 249 H 365 H 185 Alanine Aminotransferase (ALT/SGPT) 41 Albumin 3.5 # Albumin/Globulin Ratio 0.92 Alkaline Phosphatase 329 H Anion Gap 15 Aspartate Amino Transf (AST/SGOT) 23 Basophils # 0.0 Basophils % 0.3 Blood Urea Nitrogen 22 H Calcium Level 9.4 Carbon Dioxide Level 29 Chloride Level 100 Creatinine 1.37 H Direct Bilirubin 0.00 Eosinophils # 0.3 Eosinophils % 2.9 Globulin 3.80 H Glucose Level 65 #L Hematocrit 33.5 L Hemoglobin 11.4 L Indirect Bilirubin 0.1 Lymphocytes # 1.1 Lymphocytes % 12.5 L Mean Corpuscular Hemoglobin 29.2 Mean Corpuscular Hemoglobin Concent 33.9 Mean Corpuscular Volume 85.9 Mean Platelet Volume 8.3 Monocytes # 0.7 Monocytes % 7.5 Neutrophils # 6.8 Neutrophils % 76.8 Nucleated Red Blood Cells # 0.0 Nucleated Red Blood Cells % 0.0 Platelet Count 454 H Potassium Level 4.5 Red Blood Count 3.90 L Red Cell Distribution Width 13.7 Sodium Level 139 Total Bilirubin 0.1 L Total Protein 7.3 # White Blood Count 8.9 # Test 04/03/16 05:40 04/03/16 07:40 04/03/16 11:46 Magnesium Level 1.7 Phosphorus Level 5.4 H Bedside Glucose 105 123 Medications Medications Current Medications Piperacillin Sod/ Tazobactam Sod (Zosyn 3.375gm/ 100 ml (Pmx)) 100 ml @ 200 mls /hr Q8H IVPB Last administered on 04/03/16 09:07; Admin Dose 200 MLS/HR; Start 04/02/16 at 01:00 Acetaminophen (Tylenol Tab) 650 mg Q4H PRN PO pain/fever; Start 04/02/16 at 01: 00 Ondansetron HCl (Zofran Inj) 4 mg Q4H PRN IV nausea Last administered on 05:33; Admin Dose 4 MG; Start 04/02/16 at 01:00 Morphine Sulfate (morphine) 4 mg Q4H PRN IV pain Last administered on 04/03/16 09:09; Admin Dose 4 MG; Start 04/02/16 at 01:00 Carbamazepine (Tegretol) 200 mg QAM PO Last administered on 04/03/16 09:07; Admin Dose 200 MG; Start 04/02/16 at 09:00 Fluoxetine HCl (Prozac) 40 mg QAM PO Last administered on 04/03/16 09:07; Admin Dose 40 MG; Start 04/02/16 at 09:00 Gabapentin (Neurontin) 300 mg BID PO Last administered on 04/03/16 09:07; Admin Dose 300 MG; Start 04/02/16 at 09:00 Phenytoin (Dilantin) 300 mg BID PO Last administered on 04/03/16 09:08; Admin Dose 300 MG; Start 04/02/16 at 09:00 Quetiapine Fumarate (Seroquel) 100 mg QHS PO Last administered on 04/02/16 22: 17; Admin Dose 100 MG; Start 04/02/16 at 21:00 Amlodipine Besylate (Norvasc) 5 mg BID PO Last administered on 04/02/16 22:17 ; Admin Dose 5 MG; Start 04/02/16 at 01:00 Miscellaneous Information 1 ea NOTE XX ; Start 04/02/16 at 01:30 Glucose (Glutose) 15 gm Q15M PRN PO DECREASED GLUCOSE; Start 04/02/16 at 01:30 Glucose (Glutose) 22.5 gm Q15M PRN PO DECREASED GLUCOSE; Start 04/02/16 at 01: 30 Dextrose (D50w Syringe) 25 ml Q15M PRN IV DECREASED GLUCOSE; Start 04/02/16 at 01:30 Dextrose (D50w Syringe) 50 ml Q15M PRN IV DECREASED GLUCOSE; Start 04/02/16 at 01:30 Glucagon (Glucagen) 1 mg Q15M PRN IM DECREASED GLUCOSE; Start 04/02/16 at 01:30 Glucose 15 gm 15 gm Q15M PRN BUCCAL DECREASED GLUCOSE; Start 04/02/16 at 01:30 Vancomycin HCl (Vancocin) 250 ml @ 125 mls/hr Q12H IVPB Last administered on 05:35; Admin Dose 125 MLS/HR; Start 04/02/16 at 06:00 Miscellaneous Information (*Rx Drug Level Order Reminder*) VANCOMYCIN TROUGH LEVEL... ONCE ONCE XX ; Start 04/03/16 at 17:00; Stop 04/03/16 at 17:01 Losartan Potassium (Cozaar) 25 mg BID PO Last administered on 04/03/16 09:08; Admin Dose 25 MG; Start 04/02/16 at 21:00 Diagnostic Test (Pha) (Accucheck) 1 ea 02 XX Last administered on 04/03/16 01: 46; Admin Dose 1 EA; Start 04/03/16 at 02:00 Insulin Glargine 25 unit 25 unit QHS SC Last administered on 04/02/16 22:30; Admin Dose 25 UNIT; Start 04/02/16 at 22:00 Sodium Chloride (NS) 1,000 ml @ 100 mls/hr Q10H IV Last administered on 12:02; Admin Dose 100 MLS/HR; Start 04/03/16 at 12:00 TI TATE Apr 03, 2016 14:40
--- NOTE | 2016-04-03 16:08 | PN ---
DATE: 04/03/2016 INFECTIOUS DISEASE PROGRESS NOTE SUBJECTIVE: No acute changes. Patient looks comfortable, no fevers. WBC today 8.9, no shift, no bands. BUN 22, creatinine 1.37. MICROBIOLOGY: Wound culture growing gram-negative rods. ANTIMICROBIALS: The patient is on vancomycin and Zosyn. DIAGNOSTICS: X-ray of the foot revealed osteomyelitis of the first metatarsal bone and phalanx as w ell as the 5th phalanx. PHYSICAL EXAMINATION: GENERAL: Well-developed, middle-aged man who is in no distress. HEENT: Head atraumatic, normocephalic. Sclerae anicteric. Buccal mucosa pink. NECK: Supple. CHEST: Rise symmetrical. Breath sounds clear. HEART: S1, S2. ABDOMEN: Soft. Bowel tones present. EXTREMITIES: Right foot little toe edema and erythema. ASSESSMENT 1. Right foot cellulitis with an evidence of toe osteomyelitis with a wound culture preliminary [facility] wing gram-negative rods. 2. Diabetes. 3. Peripheral vascular disease. 4. Seizure disorder. PLAN: The patient remains stable. Clinically he is being seen by Dr. Cline in podiatry consultatio n. His wound culture growing gram-negative rods and previous cultures in July 2015 grew MRSA strep b eta hemolytic Group and Corynebacterium species. We will continue him on current regimen, await for final cultures. Pending I and D. Dictated By: GABBY HERRERA ALTERATIONS TAILOR for JOANNE RUVALCABA/NTS Conf#: [id number] DID#: [id number]
[2016-04-03] MEDS: INSULIN GLARGINE [LANtus] 3 ML PEN SC SCH (21:00)
[2016-04-03] MEDS ORDERED: DEXTROSE 5%-0.45% NACL 1,000 ML IV SCH (21:00)
[2016-04-03] MEDS: QUETIAPINE 100 MG TAB PO SCH (21:00)
--- NOTE | 2016-04-03 21:38 | HPN ---
Date/Time of Note Date/Time of Note DATE: 04/03/16 TIME: 21:38 Interval H&P Admission Note Pt. seen H&P reviewed: No system changes TIMUR FRANKLIN DPM Apr 03, 2016 21:38
[2016-04-03] MEDS ORDERED: BUPIVACAINE 0.5% (SDV) 30 ML INJ ONE (21:39)
[2016-04-03] MEDS ORDERED: LIDOCAINE 2% (MDV) 20 ML INJ ONE (21:39)
[2016-04-03] MEDS ORDERED: MIDAZOLAM 1 MG/ML 2 ML INJ ONE (21:50)
[2016-04-03] MEDS ORDERED: PROPOFOL 20 ML ONE (21:50)
[2016-04-03] MEDS ORDERED: FENTAnyl 50 MCG/ML VIAL ONE (21:51)
[2016-04-03] MEDS ORDERED: PHENYLephrine (100 MCG/ML) 5ML SYG ONE ×2 (22:10→22:29)
[2016-04-03] MEDS ORDERED: ONDANSETRON 4 MG INJ ONE (22:36)
--- NOTE | 2016-04-03 22:47 | OPR ---
Date/Time of Note Date/Time of Note DATE: 04/03/16 TIME: 22:47 Operative Report Procedure Date: Apr 03, 2016 Preoperative Diagnosis Osteomyelitis right fifth toe Gangrene right fifth toe First metatarsophalangeal joint abscess Diabetes mellitus Polyneuropathy Peripheral vascular disease Previous toe amputation right foot Postoperative Diagnosis Osteomyelitis right fifth toe Gangrene right fifth toe First metatarsophalangeal joint abscess Diabetes mellitus Polyneuropathy Peripheral vascular disease Previous toe amputation right foot Operation Performed Amputation of right fifth toe Incision and drainage right first MPJ Culture right first MPJ Surgeon: TIMUR FRANKLIN DPM Anesthesia: general Estimated Blood Loss: minimal Specimens Right fifth toe gangrene/osteomyelitis Complications: None Pt Condition Post Procedure: stable Disposition: PACU Indications This is a pleasant 51-year-old male patient who has been suffering with significant infection of his right foot involving the fifth toe and the first metatarsophalangeal joint. He says that the condition got worse over the past few days and he decided to come to the emergency room. He was evaluated and then found to have need for admission to the hospital for higher level of care. I was consulted for evaluation and treatment of his right foot. After full evaluation of patient's condition, my recommendation was primary amputation of his right foot fifth toe secondary to extensive osteomyelitis that is present. An MRI confirmed that the entire fifth toe is infected along with fluid collection in the first metatarsophalangeal joint of the right foot. Proposed procedure is amputation of the right fifth toe with incision and drainage of right first MPJ. Risks and complications of this type of surgery was discussed with patient in great detail. The risks and complications discussed include but are not limited to, postoperative infection, postoperative pain, postoperative disability, gait disturbance, problems with shoe gear fitting and shoes, difficulties with activities such as sports, failure of surgery to correct the problem, need for additional surgical procedures, deep venous thrombosis, limb loss and loss of life. No guarantee or warranty was given or implied to the patient either verbally or in written form as to the outcome of the procedure. Operative Findings Gangrenous right fifth toe with multiple necrotic open wounds and purulent drainage. First metatarsophalangeal joint fluid collection. Procedure Description The patient was greeted in the preoperative area. The proposed procedure was discussed in great detail patient. An informed consent was obtained, signed and placed in the chart. The patient was then taken to the operating room and was placed on the operating table in the supine position. All bony prominences were padded properly. The right lower extremity was identified as the correct site of procedure by the members of the operating room. A timeout was called and agreed upon. The right foot and ankle was then scrubbed, prepped and draped in the usual aseptic manner. Attention was directed to the right foot fifth toe. A towel clamp was used to clamp onto the right fifth toe. A fishmouth incision was made at the base of the fifth toe slightly distal to the fifth metatarsophalangeal joint using a #15 blade. The dissection was deepened using electrocautery and the fifth toe was disarticulated at the metatarsal phalangeal joint. The fifth gangrenous toe was removed and passed the back table. That will be sent to pathology for identification. Next, the wound was flushed with copious amounts of sterile normal saline. All bleeders were cauterized and controlled as necessary. Next, the wound was primarily closed using 2-0 nylon in simple suture technique. Attention was then directed to the right first metatarsophalangeal joint. There was significant edema of this joint. A #15 blade was used to make a 1 cm incision on the dorsal aspect of the metatarsophalangeal joint. Blunt dissection was made deep into the joint capsule and immediately there was yellow serosanguineous drainage noted. This drainage was cultured. Next, the wound was flushed with copious amounts of sterile normal saline using pulse irrigation. The wound was closed using 2-0 nylon in simple suture technique. The right foot was then cleansed. Sterile dressing was applied. Patient tolerated procedure and anesthesia well. He was transferred to recovery room with vital signs stable and vascular status intact to the remaining right foot. Patient will be sent back to the floor after postoperative monitoring. Patient will be seen in-house. Prognosis is guarded and he remains at high risk for limb loss. TIMUR FRANKLIN DPM Apr 03, 2016 22:47
[2016-04-03] MEDS ORDERED: POLYMYXIN/BACITRACIN 1L IRRIG IRR ONE (23:03)
--- NOTE | 2016-04-03 23:39 | RADRPT ---
PROCEDURE: XR Right Foot. CLINICAL INDICATION: Right foot pain. Postop. TECHNIQUE: Three views. Frontal, lateral, and oblique. COMPARISON: 04/01/2016. FINDINGS: There has been interval amputation of the fifth toe. There is amputation of the second toe as seen previously. There are destructive changes of the firs t metatarsal phalangeal joint as seen previously with adjacent callus and periosteal reaction. The articular surfaces are otherwise intact. There is diffuse soft tissue swelling. There is no radiopaque foreign body. IMPRESSION: 1. Interval amputation of the fifth toe. 2. Amputation of the second toe as seen previously. 3. Unchanged destructive changes of the first metatarsal phalangeal joint with adjacent callus and periosteal reaction. 4. No other new abnormality. RPTAT: QQ .Jus Moseley MD, MD Date Time Electronically viewed and signed by .Jus Moseley MD, MD on 04/03/2016 23:39 .R/
[2016-04-04] VITALS (7 sets, daily range): BP systolic 130–166; BP diastolic 81–93; PULSE 78–84; RESP 16–20
[2016-04-04] MEDS: ACCUCHECK XX SCH (02:00)
[2016-04-04] MEDS: PIPER-TAZO 3.375 GM IV (PMX) 100 ML IVPB SCH ×2 (02:12→09:31)
[2016-04-04] MEDS: VANCOMYCIN 750 MG in SOD CHLORIDE 0.9% 150 ML IVPB SCH ×2 (05:14→18:51)
[2016-04-04] MEDS: morphine 4 MG/ML VIAL IV PRN ×4 (05:15→21:10)
[2016-04-04 05:45] LABS: BASOPHILS % 0.3 % (0.0-2.0); EOSINOPHILS # 0.2 10^3/ul (0.0-0.5); HEMATOCRIT 35.8 % (42.0-52.0); HEMOGLOBIN 12.2 g/dl (14.0-18.0); LYMPHOCYTES # 0.8 10^3/ul (0.8-2.9); LYMPHOCYTES % 12.3 % (15.0-51.0); MEAN CORPUSCULAR HEMOGLOBIN 29.4 pg (29.0-33.0); MEAN CORPUSCULAR HGB CONC 34.1 g/dl (32.0-37.0); MEAN CORPUSCULAR VOLUME 86.4 fl (82.0-101.0); MEAN PLATELET VOLUME 8.6 fl (7.4-10.4); MONOCYTE # 0.6 10^3/ul (0.3-0.9); MONOCYTES % 9.5 % (0.0-11.0); NEUTROPHIL # 4.9 10^3/ul (1.6-7.5); NEUTROPHILS % 74.9 % (39.0-77.0); PLATELET COUNT 428 10^3/UL (140-440); RED BLOOD COUNT 4.14 10^6/ul (4.70-6.10); RED CELL DISTRIBUTION WIDTH 14.1 % (11.5-14.5); UNCORRECTED WBC 6.6 10^3/ul (4.8-10.8); WHITE BLOOD COUNT 6.6 10^3/ul (4.8-10.8)
[2016-04-04 06:06] LABS: PHOSPHORUS 4.5 mg/dl (2.5-4.9)
[2016-04-04 06:07] LABS: MAGNESIUM 1.7 mg/dl (1.7-2.5)
[2016-04-04 06:13] LABS: POTASSIUM 5.2 mmol/L (3.5-5.1)
[2016-04-04 06:15] LABS: CREATININE 1.11 mg/dl (0.61-1.24)
[2016-04-04] MEDS ORDERED: INSULIN GLARGINE [LANtus] 3 ML PEN SC ONE (07:00)
[2016-04-04 07:01] LABS: CONDITION 1
[2016-04-04] MEDS ORDERED: INSULIN ASPART [NOVOLOG] 3 ML PEN SC ONE (08:15)
[2016-04-04] MEDS: PHENYTOIN 100 MG CAP PO SCH ×2 (08:51→21:24)
[2016-04-04] MEDS: carBAMAZepine CHEW 100 MG CHEW PO SCH (08:51)
[2016-04-04] MEDS: FLUOXETINE 20 MG CAP PO SCH (08:51)
[2016-04-04] MEDS: GABAPENTIN 300 MG CAP PO SCH ×2 (08:51→21:08)
[2016-04-04] MEDS: AMLODIPINE 5 MG TAB PO SCH ×2 (08:52→21:09)
[2016-04-04] MEDS: LOSARTAN 25 MG TAB PO SCH ×2 (08:52→21:08)
[2016-04-04] MEDS: INSULIN ASPART [NOVOLOG] 3 ML PEN SC SCH ×4 (09:06→21:22)
--- NOTE | 2016-04-04 12:39 | PN ---
Date/Time of Note Date/Time of Note DATE: 04/04/16 TIME: 12:38 Assessment/Plan Lines/Catheters IV Catheter Type (from Nrs): Peripheral IV Lomeli in Place (from Nrs): No Assessment/Plan Chief Complaint/Hosp Course Thank you very much for involving me in the care of this patient. As you very well know this is a male patient who is committed to my practice who presented to the emergency room with an infected right fifth toe. He says that about 2 days ago he started to have pain in swelling in the right fifth toe. He says he try to take care of toe but the pain got worse and got panicky and came to the emergency room. He says that on the the MRI of the right foot which was ordered previously which showed bone infection. His past medical history is significant for diabetes mellitus with peripheral neuropathy and peripheral vascular disease, diabetes mellitus, hypertension, seizure disorder, previous history of foot surgery including right second toe amputation. Problems: (1) Osteomyelitis of toe of right foot (2) Abscess of right foot (3) Peripheral vascular disease (4) Diabetes mellitus type 2 in nonobese Status: Acute (5) Toe infection Assessment/Plan Non weightbearing to continue. Daily dressing change Exam/Review of Systems Vital Signs Vitals Vital Signs Date Time Temp Pulse Resp B/P Pulse Ox O2 Delivery O2 Flow Rate FiO2 04/04/16 08:22 98.6 77 20 141/93 97 04/04/16 05:19 Room Air Intake and Output 04/03/16 04/03/16 04/04/16 15:00 23:00 07:00 Intake Total 250 ml 1510 ml 1350 ml Output Total 10 ml Balance 250 ml 1500 ml 1350 ml Results Result Diagram: 04/04/16 0455 04/04/16 0455 TIMUR FRANKLIN DPM Apr 04, 2016 12:39
[2016-04-04] MEDS ORDERED: LEVOFLOXACIN 500 MG TAB PO ONE (15:00)
--- NOTE | 2016-04-04 16:20 | PN ---
Date/Time of Note Date/Time of Note DATE: 04/04/16 TIME: 16:10 Assessment/Plan VTE Prophylaxis VTE Prophylaxis Intervention: SCD's Lines/Catheters IV Catheter Type (from Nrsg): Peripheral IV Urinary Cath still in place: No Assessment/Plan Assessment/Plan 51 yo male with; 1. Right foot osteomyelitis/cellulitis. Already confirmed on outpatient MRI and agian on XR here last night. Doppler negative for DVT POD#1 s/p amputation 5th toe and I&D of abscess ID to follow up Intra op cx tomorrow and give final recs for abx, patient may not need IV Vanco. Per Dr Cline, right post shoe OK for right foot and patient can be partially weight bearing 2. Diabetes Mellitus. Uncontrolled, with A1C of 11.6 .... Resume Lantus increased to 25 u qhs tonight and also continue on Novolog 5 u QAC and SSI. Monitor and adjust as needed for discharge purposes tomorrow 3. Hypertension, controlled on Cozaar and Norvasc Continue pain control 4. Bipolar disorder; continue outpatient medications 5. ETOH abuse history, patient has been sober for 1 month now and determined to remain so 6. Mild HAZEL: resolving, monitor on IVF and repeat labs in AM. Prophylaxis: Lovenox for dvt ppx and Pepcid for GI ppx . Disposition: D/c plan home tomorrow with Home Health for wound care at least Subjective 24 Hr Interval Summary Free Text/Dictation Patient doing OK POD#1 post I&D and amputation fifth toe D/c plan for tomorrow with po Levaquin for sure and may be IV Vanco but not sure per ID, along with wound care and PICC line Per Dr Cline needs right foot post op shoe ans can be partially weight bearing on right foot Exam/Review of Systems Vital Signs Vitals Vital Signs Date Time Temp Pulse Resp B/P Pulse Ox O2 Delivery O2 Flow Rate FiO2 04/04/16 08:22 98.6 77 20 141/93 97 04/04/16 05:19 Room Air Intake and Output 04/03/16 04/03/16 04/04/16 15:00 23:00 07:00 Intake Total 250 ml 1510 ml 1350 ml Output Total 10 ml Balance 250 ml 1500 ml 1350 ml Exam Constitutional: alert, oriented, well developed Respiratory: clear to auscultation, normal air movement Cardiovascular: nl pulses, regular rate and rhythm Gastrointestinal: non-tender, soft Musculoskeletal: nl gait and stance Extremities: normal pulses, other (right foot with dressing in place ) Neurological: DAIRY FARMER II-XII intact, nl mental status, nl speech, nl strength Results Result Diagram: 04/04/16 0455 04/04/16 0455 Results 24 hrs Laboratory Tests Test 04/03/16 17:26 04/03/16 17:37 04/03/16 20:16 04/03/16 20:48 Vancomycin Level Trough 16.9 Bedside Glucose 79 71 70 Test 04/03/16 21:25 04/03/16 23:40 04/04/16 04:55 04/04/16 05:28 Bedside Glucose 96 118 428 *H Anion Gap 15 Basophils # 0.0 Basophils % 0.3 Blood Urea Nitrogen 23 H Calcium Level 9.0 Carbon Dioxide Level 24 Chloride Level 100 Creatinine 1.11 Eosinophils # 0.2 Eosinophils % 3.0 Glucose Level 489 #*H Hematocrit 35.8 L Hemoglobin 12.2 L Lymphocytes # 0.8 Lymphocytes % 12.3 L Magnesium Level 1.7 Mean Corpuscular Hemoglobin 29.4 Mean Corpuscular Hemoglobin Concent 34.1 Mean Corpuscular Volume 86.4 Mean Platelet Volume 8.6 Monocytes # 0.6 Monocytes % 9.5 Neutrophils # 4.9 Neutrophils % 74.9 Nucleated Red Blood Cells # 0.0 Nucleated Red Blood Cells % 0.0 Phosphorus Level 4.5 Platelet Count 428 Potassium Level 5.2 H Red Blood Count 4.14 L Red Cell Distribution Width 14.1 Sodium Level 134 L White Blood Count 6.6 # Test 04/04/16 07:45 04/04/16 11:24 Bedside Glucose 295 H 72 Medications Medications Current Medications Acetaminophen (Tylenol Tab) 650 mg Q4H PRN PO pain/fever; Start 04/02/16 at 01: 00 Ondansetron HCl (Zofran Inj) 4 mg Q4H PRN IV nausea Last administered on 05:33; Admin Dose 4 MG; Start 04/02/16 at 01:00 Morphine Sulfate (morphine) 4 mg Q4H PRN IV pain Last administered on 04/04/16 15:45; Admin Dose 4 MG; Start 04/02/16 at 01:00 Carbamazepine (Tegretol) 200 mg QAM PO Last administered on 04/04/16 08:51; Admin Dose 200 MG; Start 04/02/16 at 09:00 Fluoxetine HCl (Prozac) 40 mg QAM PO Last administered on 04/04/16 08:51; Admin Dose 40 MG; Start 04/02/16 at 09:00 Gabapentin (Neurontin) 300 mg BID PO Last administered on 04/04/16 08:51; Admin Dose 300 MG; Start 04/02/16 at 09:00 Phenytoin (Dilantin) 300 mg BID PO Last administered on 04/04/16 08:51; Admin Dose 300 MG; Start 04/02/16 at 09:00 Quetiapine Fumarate (Seroquel) 100 mg QHS PO Last administered on 04/02/16 22: 17; Admin Dose 100 MG; Start 04/02/16 at 21:00 Amlodipine Besylate (Norvasc) 5 mg BID PO Last administered on 04/04/16 08:52; Admin Dose 5 MG; Start 04/02/16 at 01:00 Miscellaneous Information 1 ea NOTE XX ; Start 04/02/16 at 01:30 Glucose (Glutose) 15 gm Q15M PRN PO DECREASED GLUCOSE; Start 04/02/16 at 01:30 Glucose (Glutose) 22.5 gm Q15M PRN PO DECREASED GLUCOSE; Start 04/02/16 at 01: 30 Dextrose (D50w Syringe) 25 ml Q15M PRN IV DECREASED GLUCOSE; Start 04/02/16 at 01:30 Dextrose (D50w Syringe) 50 ml Q15M PRN IV DECREASED GLUCOSE; Start 04/02/16 at 01:30 Glucagon (Glucagen) 1 mg Q15M PRN IM DECREASED GLUCOSE; Start 04/02/16 at 01:30 Glucose (Glutose) 15 gm Q15M PRN BUCCAL DECREASED GLUCOSE; Start 04/02/16 at 01 :30 Losartan Potassium (Cozaar) 25 mg BID PO Last administered on 04/04/16 08:52; Admin Dose 25 MG; Start 04/02/16 at 21:00 Diagnostic Test (Pha) (Accucheck) 1 ea 02 XX Last administered on 04/03/16 01: 46; Admin Dose 1 EA; Start 04/03/16 at 02:00 Insulin Glargine 25 unit 25 unit QHS SC Last administered on 04/02/16 22:30; Admin Dose 25 UNIT; Start 04/02/16 at 22:00 Vancomycin HCl/ Sodium Chloride (Vancocin/NS) 150 ml @ 75 mls/hr Q12H IVPB Last administered on 04/04/16 05:14; Admin Dose 75 MLS/HR; Start 04/04/16 at 06: 00 Miscellaneous Information (*Rx Drug Level Order Reminder*) VANCO TROUGH @ 1, 700 ON... ONCE ONCE XX ; Start 04/05/16 at 17:00; Stop 04/05/16 at 17:01 Levofloxacin (Levaquin) 500 mg DAILY@06 PO ; Start 04/05/16 at 06:00 TI TATE Apr 04, 2016 16:20
--- NOTE | 2016-04-04 16:58 | PN ---
DATE: 04/04/2016 SUBJECTIVE: No acute changes. The patient is alert, looks comfortable, no fevers. Vital signs sta ble. LABORATORY DATA: WBC 6.6, no shift, no bands. BUN 23, creatinine 1.1. MICROBIOLOGY: Right foot wound culture growing Proteus penneri and corynebacterium species. ANTIMICROBIALS: The patient is on: 1. IV vancomycin. 2. Zosyn. PHYSICAL EXAMINATION: GENERAL: Well-nourished, well-developed, middle-aged man who is alert, in no distress. HEENT: Head atraumatic, normocephalic. Sclerae anicteric. Buccal mucosa pink. NECK: Supple, trachea midline. CHEST: Rise symmetrical. Breath sounds clear. HEART: S1, S2. ABDOMEN: Soft. Bowel tones present. EXTREMITIES: With right foot dressing intact. ASSESSMENT: 1. Right foot cellulitis, osteomyelitis, status post debridement with right little toe amputation a nd wound culture growing multiple bacteria. 2. Poorly controlled diabetes with blood sugars fluctuating above 200. 3. Peripheral vascular disease and diabetic neuropathy. 4. History of seizure. PLAN: The patient remains stable. We are going to change the Zosyn to Levaquin. Continue vancomyc in. Await for final cultures and follow podiatry recommendations. Encourage patient to elevate his leg. Dictated By: GABBY HERRERA TRIMMER AND REINFORCER for JOANNE RUVALCABA/VICENTE Conf#: [id number] DID#: [id number]
[2016-04-04] MEDS ORDERED: LIDOCAINE 1% (MDV) 20 ML INJ SC ONE (17:00)
[2016-04-04] MEDS: QUETIAPINE 100 MG TAB PO SCH (21:09)
[2016-04-04] MEDS: INSULIN GLARGINE [LANtus] 3 ML PEN SC SCH (21:28)
[2016-04-05] MEDS: ACCUCHECK XX SCH (02:10)
[2016-04-05] MEDS: VANCOMYCIN 750 MG in SOD CHLORIDE 0.9% 150 ML IVPB SCH ×2 (05:44→15:31)
[2016-04-05] MEDS: morphine 4 MG/ML VIAL IV PRN ×2 (05:46→10:12)
[2016-04-05] MEDS ORDERED: LEVOFLOXACIN 500 MG TAB PO SCH (06:00)
[2016-04-05 06:07] LABS: MAGNESIUM 1.5 mg/dl (1.7-2.5)
[2016-04-05 06:20] LABS: POTASSIUM 4.6 mmol/L (3.5-5.1)
[2016-04-05 06:23] LABS: CREATININE 0.91 mg/dl (0.61-1.24)
[2016-04-05 06:24] LABS: CALCIUM 9.2 mg/dl (8.4-10.2)
[2016-04-05 06:40] LABS: BASOPHILS % 0.4 % (0.0-2.0); EOSINOPHILS # 0.2 10^3/ul (0.0-0.5); EOSINOPHILS % 2.1 % (0.0-7.0); HEMATOCRIT 32.7 % (42.0-52.0); HEMOGLOBIN 11.4 g/dl (14.0-18.0); LYMPHOCYTES # 0.7 10^3/ul (0.8-2.9); LYMPHOCYTES % 9.7 % (15.0-51.0); MEAN CORPUSCULAR HEMOGLOBIN 29.8 pg (29.0-33.0); MEAN CORPUSCULAR HGB CONC 34.8 g/dl (32.0-37.0); MEAN CORPUSCULAR VOLUME 85.6 fl (82.0-101.0); MEAN PLATELET VOLUME 8.6 fl (7.4-10.4); MONOCYTE # 0.7 10^3/ul (0.3-0.9); MONOCYTES % 9.5 % (0.0-11.0); NEUTROPHIL # 5.7 10^3/ul (1.6-7.5); NEUTROPHILS % 78.3 % (39.0-77.0); PLATELET COUNT 382 10^3/UL (140-440); RED BLOOD COUNT 3.82 10^6/ul (4.70-6.10); RED CELL DISTRIBUTION WIDTH 13.8 % (11.5-14.5); UNCORRECTED WBC 7.3 10^3/ul (4.8-10.8); WHITE BLOOD COUNT 7.3 10^3/ul (4.8-10.8)
[2016-04-05 07:53] VITALS: BP 146/90; RESP 20
[2016-04-05 07:53] LABS: CONDITION 1
[2016-04-05] MEDS: INSULIN ASPART [NOVOLOG] 3 ML PEN SC SCH ×6 (08:15→20:45)
[2016-04-05] MEDS: PHENYTOIN 100 MG CAP PO SCH ×2 (10:05→20:29)
[2016-04-05] MEDS: GABAPENTIN 300 MG CAP PO SCH ×2 (10:05→20:30)
[2016-04-05] MEDS: LOSARTAN 25 MG TAB PO SCH ×2 (10:06→20:30)
[2016-04-05] MEDS: carBAMAZepine CHEW 100 MG CHEW PO SCH (10:06)
[2016-04-05] MEDS: AMLODIPINE 5 MG TAB PO SCH ×2 (10:06→20:29)
[2016-04-05] MEDS: FLUOXETINE 20 MG CAP PO SCH (10:07)
[2016-04-05] MEDS ORDERED: MAGNESIUM SULFATE 2 GM/50 ML 50 ML IVPB ONE (12:00)
--- NOTE | 2016-04-05 13:04 | PN ---
Date/Time of Note Date/Time of Note DATE: 04/05/16 TIME: 12:57 Assessment/Plan VTE Prophylaxis VTE Prophylaxis Intervention: SCD's Lines/Catheters IV Catheter Type (from Nrsg): Peripheral IV Urinary Cath still in place: No Assessment/Plan Assessment/Plan 51 yo male with; 1. Right foot osteomyelitis/cellulitis. Already confirmed on outpatient MRI and agian on XR here last night. Doppler negative for DVT POD#2 s/p amputation 5th toe and I&D of abscess Appreciate ID recommedations, Ok to diacharge patient on Levaquin 750 mg po daily x 6 weeks Follow up with Dr Cline on Monday 04/10, right post op shoe OK for right foot and patient can be partially weight bearing per Dr Cline 2. Diabetes Mellitus. Uncontrolled, with A1C of 11.6 .... Discharge on Lantus 14 u qhs and Novolog 4 u QAC and SSI. 3. Hypertension, controlled on Cozaar and Norvasc Continue pain control 4. Bipolar disorder; continue outpatient medications 5. ETOH abuse history, patient has been sober for 1 month now and determined to remain so 6. Mild HAZEL: resolved Prophylaxis: Lovenox for dvt ppx and Pepcid for GI ppx . Disposition: D/c home today with Home Health for wound care and f/u with Dr Cline 04/10. Subjective 24 Hr Interval Summary Free Text/Dictation Patient doing Ok and going home today on po abx per ID no need for Vanco Afebrile and Insulin regimen adjusted Exam/Review of Systems Vital Signs Vitals Vital Signs Date Time Temp Pulse Resp B/P Pulse Ox O2 Delivery O2 Flow Rate FiO2 04/05/16 07:53 98.5 85 20 146/90 98 04/04/16 05:19 Room Air Intake and Output 04/04/16 04/04/16 04/05/16 15:00 23:00 07:00 Intake Total 100 ml 1510 ml 600 ml Balance 100 ml 1510 ml 600 ml Exam Constitutional: alert, oriented, well developed Respiratory: clear to auscultation, normal air movement Cardiovascular: nl pulses, regular rate and rhythm Gastrointestinal: non-tender, soft Musculoskeletal: other (right foot post incisions clean, dry and intact, dressing changed today ) Extremities: normal pulses Neurological: WIRE COILER II-XII intact, nl mental status, nl speech, nl strength Results Result Diagram: 04/05/16 0520 04/05/16 0520 Results 24 hrs Laboratory Tests Test 04/04/16 17:06 04/04/16 21:15 04/05/16 02:09 04/05/16 05:20 Bedside Glucose 183 248 H 265 H Anion Gap 15 Basophils # 0.0 Basophils % 0.4 Blood Urea Nitrogen 20 Calcium Level 9.2 Carbon Dioxide Level 26 Chloride Level 102 Creatinine 0.91 Eosinophils # 0.2 Eosinophils % 2.1 Glucose Level 223 #H Hematocrit 32.7 L Hemoglobin 11.4 L Lymphocytes # 0.7 L Lymphocytes % 9.7 L Magnesium Level 1.5 L Mean Corpuscular Hemoglobin 29.8 Mean Corpuscular Hemoglobin Concent 34.8 Mean Corpuscular Volume 85.6 Mean Platelet Volume 8.6 Monocytes # 0.7 Monocytes % 9.5 Neutrophils # 5.7 Neutrophils % 78.3 H Nucleated Red Blood Cells # 0.0 Nucleated Red Blood Cells % 0.0 Phosphorus Level 3.0 Platelet Count 382 Potassium Level 4.6 Red Blood Count 3.82 L Red Cell Distribution Width 13.8 Sodium Level 138 White Blood Count 7.3 Test 04/05/16 08:18 04/05/16 12:05 04/05/16 12:30 04/05/16 12:53 Bedside Glucose 101 64 L 113 183 Medications Medications Current Medications Acetaminophen (Tylenol Tab) 650 mg Q4H PRN PO pain/fever; Start 04/02/16 at 01: 00 Ondansetron HCl (Zofran Inj) 4 mg Q4H PRN IV nausea Last administered on 05:33; Admin Dose 4 MG; Start 04/02/16 at 01:00 Morphine Sulfate (morphine) 4 mg Q4H PRN IV pain Last administered on 04/05/16 10:12; Admin Dose 4 MG; Start 04/02/16 at 01:00 Carbamazepine (Tegretol) 200 mg QAM PO Last administered on 04/05/16 10:06; Admin Dose 200 MG; Start 04/02/16 at 09:00 Fluoxetine HCl (Prozac) 40 mg QAM PO Last administered on 04/05/16 10:07; Admin Dose 40 MG; Start 04/02/16 at 09:00 Gabapentin (Neurontin) 300 mg BID PO Last administered on 04/05/16 10:05; Admin Dose 300 MG; Start 04/02/16 at 09:00 Phenytoin (Dilantin) 300 mg BID PO Last administered on 04/05/16 10:05; Admin Dose 300 MG; Start 04/02/16 at 09:00 Quetiapine Fumarate (Seroquel) 100 mg QHS PO Last administered on 04/04/16 21: 09; Admin Dose 100 MG; Start 04/02/16 at 21:00 Amlodipine Besylate (Norvasc) 5 mg BID PO Last administered on 04/05/16 10:06; Admin Dose 5 MG; Start 04/02/16 at 01:00 Miscellaneous Information 1 ea NOTE XX ; Start 04/02/16 at 01:30 Glucose (Glutose) 15 gm Q15M PRN PO DECREASED GLUCOSE; Start 04/02/16 at 01:30 Glucose (Glutose) 22.5 gm Q15M PRN PO DECREASED GLUCOSE; Start 04/02/16 at 01: 30 Dextrose (D50w Syringe) 25 ml Q15M PRN IV DECREASED GLUCOSE; Start 04/02/16 at 01:30 Dextrose (D50w Syringe) 50 ml Q15M PRN IV DECREASED GLUCOSE; Start 04/02/16 at 01:30 Glucagon (Glucagen) 1 mg Q15M PRN IM DECREASED GLUCOSE; Start 04/02/16 at 01:30 Glucose (Glutose) 15 gm Q15M PRN BUCCAL DECREASED GLUCOSE; Start 04/02/16 at 01 :30 Losartan Potassium (Cozaar) 25 mg BID PO Last administered on 04/05/16 10:06; Admin Dose 25 MG; Start 04/02/16 at 21:00 Diagnostic Test (Pha) 1 ea 1 ea 02 XX Last administered on 04/05/16 02:10; Admin Dose 1 EA; Start 04/03/16 at 02:00 Vancomycin HCl/ Sodium Chloride (Vancocin/NS) 150 ml @ 75 mls/hr Q12H IVPB Last administered on 04/05/16 05:44; Admin Dose 75 MLS/HR; Start 04/04/16 at 06: 00 Miscellaneous Information (*Rx Drug Level Order Reminder*) VANCO TROUGH @ 1, 700 ON... ONCE ONCE XX ; Start 04/05/16 at 17:00; Stop 04/05/16 at 17:01 Levofloxacin 500 mg 500 mg DAILY@06 PO Last administered on 04/05/16 05:43; Admin Dose 500 MG; Start 04/05/16 at 06:00 Magnesium Sulfate (Magnesium Sulfate 2 Gm/50 ml) 50 ml @ 25 mls/hr ONCE ONCE IVPB Last administered on 04/05/16 12:26; Admin Dose 25 MLS/HR; Start 04/05/16 at 12:00; Stop 04/05/16 at 13:59 Insulin Glargine (Lantus) 14 unit QHS SC ; Start 04/05/16 at 21:00 TI TATE Apr 05, 2016 13:04
--- NOTE | 2016-04-05 13:06 | PDOCDIS ---
Discharge Instructions CONDITION Patient Condition: Stable HOME CARE INSTRUCTIONS: Special Diet: CARB CONTROLLED ACTIVITY: Activity Restrictions: Partial Weight Bearing (right foot with post op shoe ) FOLLOW UP/APPOINTMENTS Appointments Follow up with Home Health for wound care Follow up with PCP within 1 week Follow up with Dr Cline on Monday 04/10 TI TATE Apr 05, 2016 13:06
[2016-04-05] MEDS ORDERED: NOVO3I SC (13:10)
[2016-04-05] MEDS ORDERED: AMLO-145 PO (13:10)
[2016-04-05] MEDS ORDERED: LOSA25TA2 PO (13:10)
[2016-04-05] MEDS ORDERED: LACT1CAP57 PO (13:10)
[2016-04-05] MEDS ORDERED: LEVO750T25 PO (13:10)
[2016-04-05] MEDS: LACTOBACILLUS RHAMNOSUS CAP PO SCH ×2 (15:31→22:48)
[2016-04-05] MEDS: traMADol 50 MG TAB PO PRN (15:37)
--- NOTE | 2016-04-05 16:57 | PN ---
DATE: 04/05/2016 SUBJECTIVE: No acute changes. The patient is alert, feels good, looks comfortable, no fevers. LABORATORY: WBC today 7.3, neutrophils 78.3, no bands. BUN 20, creatinine 0.91. MICROBIOLOGY: Right foot cultures on admission grew Proteus penneri and Corynebacterium species. I ntraoperative cultures have been negative. PHYSICAL EXAMINATION: GENERAL: Well-developed, middle-aged, white man who is alert, in no distress. HEENT: Head atraumatic, normocephalic. Sclerae anicteric. NECK: Supple. CHEST: Rise symmetrical. Breath sounds clear. HEART: S1, S2. ABDOMEN: Soft, bowel tones present. EXTREMITIES: With right foot dressing intact. ASSESSMENT: 1. Right foot cellulitis with toe osteomyelitis, status post incision and drainage with little toe amputation with culture growing Proteus penneri susceptible to Levaquin. 2. Diabetes. 3. Peripheral vascular disease. 4. History of seizures. PLAN: The patient remains stable. Pending discharge planning. Anticipate discharge on oral Levaqu in for 6 to 8 weeks. Follow with podiatry as an outpatient for further recommendations. Above was discussed with Dr. Harkins. Dictated By: GABBY HERRERA MECHANIC ASSISTANT for JOANNE RUVALCABA/VICENTE Conf#: [id number] DID#: [id number]
[2016-04-05 20:00] VITALS: BP 159/88; PULSE 97; RESP 18
[2016-04-05] MEDS: ACETAMINOPHEN 325 MG TAB PO PRN (20:28)
[2016-04-05] MEDS: QUETIAPINE 100 MG TAB PO SCH (20:29)
[2016-04-05] MEDS: ONDANSETRON 4 MG INJ IV PRN (20:33)
[2016-04-05] MEDS ORDERED: INSULIN GLARGINE [LANtus] 3 ML PEN SC SCH (21:00)
[2016-04-05 23:15] VITALS: BP 125/70; PULSE 91; RESP 19
[2016-04-05] MEDS: INSULIN GLARGINE [LANtus] 3 ML PEN SC SCH (23:26)
--- NOTE | 2016-04-05 23:29 | PN ---
Date/Time of Note Date/Time of Note DATE: 04/05/16 TIME: 23:29 Assessment/Plan Lines/Catheters IV Catheter Type (from Nrs): Saline Lock Lomeli in Place (from Nrs): No Assessment/Plan Chief Complaint/Hosp Course Thank you very much for involving me in the care of this patient. As you very well know this is a male patient who is committed to my practice who presented to the emergency room with an infected right fifth toe. He says that about 2 days ago he started to have pain in swelling in the right fifth toe. He says he try to take care of toe but the pain got worse and got panicky and came to the emergency room. He says that on the the MRI of the right foot which was ordered previously which showed bone infection. His past medical history is significant for diabetes mellitus with peripheral neuropathy and peripheral vascular disease, diabetes mellitus, hypertension, seizure disorder, previous history of foot surgery including right second toe amputation. Problems: Exam/Review of Systems Vital Signs Vitals Vital Signs Date Time Temp Pulse Resp B/P Pulse Ox O2 Delivery O2 Flow Rate FiO2 04/05/16 22:45 100.4 04/05/16 20:00 97 18 159/88 97 Room Air Intake and Output 04/04/16 04/04/16 04/05/16 15:00 23:00 07:00 Intake Total 100 ml 1510 ml 600 ml Balance 100 ml 1510 ml 600 ml Results Result Diagram: 04/05/16 0520 04/05/16 0520 TIMUR FRANKLIN DPM Apr 05, 2016 23:29
[2016-04-06 01:04] VITALS: BP 157/88; PULSE 92; RESP 20
[2016-04-06] MEDS: ACCUCHECK XX SCH (02:00)
[2016-04-06] MEDS: ACETAMINOPHEN 325 MG TAB PO PRN ×3 (03:15→21:38)
[2016-04-06] MEDS: traMADol 50 MG TAB PO PRN ×3 (04:37→19:56)
[2016-04-06] MEDS: ONDANSETRON 4 MG INJ IV PRN (04:38)
[2016-04-06] MEDS ORDERED: LEVOFLOXACIN 750 MG TABLET PO SCH (06:00)
[2016-04-06] MEDS: VANCOMYCIN 750 MG in SOD CHLORIDE 0.9% 150 ML IVPB SCH ×2 (06:09→17:46)
[2016-04-06 08:08] VITALS: BP 145/86; RESP 18
[2016-04-06] MEDS: LOSARTAN 25 MG TAB PO SCH ×2 (09:27→21:39)
[2016-04-06] MEDS: carBAMAZepine CHEW 100 MG CHEW PO SCH (09:27)
[2016-04-06] MEDS: LACTOBACILLUS RHAMNOSUS CAP PO SCH ×2 (09:27→21:38)
[2016-04-06] MEDS: PHENYTOIN 100 MG CAP PO SCH ×2 (09:28→21:38)
[2016-04-06] MEDS: FLUOXETINE 20 MG CAP PO SCH (09:28)
[2016-04-06] MEDS: AMLODIPINE 5 MG TAB PO SCH ×2 (09:28→21:39)
[2016-04-06] MEDS: GABAPENTIN 300 MG CAP PO SCH ×2 (09:28→21:38)
[2016-04-06] MEDS: INSULIN ASPART [NOVOLOG] 3 ML PEN SC SCH ×7 (10:54→21:49)
--- NOTE | 2016-04-06 13:07 | CONS ---
Date/Time of Note Date/Time of Note DATE: 04/06/16 TIME: 13:05 Assessment/Plan Assessment/Plan Chief Complaint/Hosp Course SUBJECTIVE: Spiked fever, +cough and congestion, s/p cx's done and CXR, nad PHYSICAL EXAMINATION: GENERAL: Well-developed, middle-aged, white man who is in no distress. HEENT: Head atraumatic, normocephalic. Sclerae anicteric. NECK: Supple. CHEST: Rise symmetrical. Breath sounds clear. HEART: S1, S2. ABDOMEN: Soft, bowel tones present. EXTREMITIES: With right foot dressing intact. ASSESSMENT: 1. Right foot cellulitis with toe osteomyelitis, status post incision and drainage with little toe amputation with culture growing Proteus penneri susceptible to Levaquin. 2. Diabetes. 3. Peripheral vascular disease. 4. History of seizures. 5. Possible PNA vs acute HCA bronchitis PLAN: Change Levaquin to Zosyn, continue Vanco, f/u cx's and CXR. DW staff Problems: Consultation Date/Type/Reason Admit Date/Time Apr 01, 2016 at 22:25 Initial Consult Date 04/02/16 Type of Consultation: ID Exam/Review of Systems Vital Signs Vitals Vital Signs Date Time Temp Pulse Resp B/P Pulse Ox O2 Delivery O2 Flow Rate FiO2 04/06/16 08:08 100.3 98 18 145/86 96 04/06/16 01:04 Room Air Intake and Output 04/05/16 04/05/16 04/06/16 15:00 23:00 07:00 Intake Total 150 ml 1760 ml 480 ml Output Total 600 ml Balance 150 ml 1760 ml -120 ml Results Result Diagram: 04/05/16 0520 04/05/16 0520 Results 24 hrs Laboratory Tests Test 04/05/16 17:27 04/05/16 18:30 04/05/16 20:45 04/05/16 22:46 Bedside Glucose 181 159 101 99 Test 04/06/16 08:08 04/06/16 12:04 Bedside Glucose 155 248 H Medications Medications Current Medications Acetaminophen (Tylenol Tab) 650 mg Q4H PRN PO pain/fever Last administered on t 09:26; Admin Dose 650 MG; Start 04/02/16 at 01:00 Ondansetron HCl (Zofran Inj) 4 mg Q4H PRN IV nausea Last administered on 04:38; Admin Dose 4 MG; Start 04/02/16 at 01:00 Carbamazepine (Tegretol) 200 mg QAM PO Last administered on 04/06/16 09:27; Admin Dose 200 MG; Start 04/02/16 at 09:00 Fluoxetine HCl (Prozac) 40 mg QAM PO Last administered on 04/06/16 09:28; Admin Dose 40 MG; Start 04/02/16 at 09:00 Gabapentin (Neurontin) 300 mg BID PO Last administered on 04/06/16 09:28; Admin Dose 300 MG; Start 04/02/16 at 09:00 Phenytoin (Dilantin) 300 mg BID PO Last administered on 04/06/16 09:28; Admin Dose 300 MG; Start 04/02/16 at 09:00 Quetiapine Fumarate (Seroquel) 100 mg QHS PO Last administered on 04/05/16 20: 29; Admin Dose 100 MG; Start 04/02/16 at 21:00 Amlodipine Besylate (Norvasc) 5 mg BID PO Last administered on 04/06/16 09:28; Admin Dose 5 MG; Start 04/02/16 at 01:00 Miscellaneous Information 1 ea NOTE XX ; Start 04/02/16 at 01:30 Glucose (Glutose) 15 gm Q15M PRN PO DECREASED GLUCOSE; Start 04/02/16 at 01:30 Glucose (Glutose) 22.5 gm Q15M PRN PO DECREASED GLUCOSE; Start 04/02/16 at 01: 30 Dextrose (D50w Syringe) 25 ml Q15M PRN IV DECREASED GLUCOSE; Start 04/02/16 at 01:30 Dextrose (D50w Syringe) 50 ml Q15M PRN IV DECREASED GLUCOSE; Start 04/02/16 at 01:30 Glucagon (Glucagen) 1 mg Q15M PRN IM DECREASED GLUCOSE; Start 04/02/16 at 01:30 Glucose (Glutose) 15 gm Q15M PRN BUCCAL DECREASED GLUCOSE; Start 04/02/16 at 01 :30 Losartan Potassium (Cozaar) 25 mg BID PO Last administered on 04/06/16 09:27; Admin Dose 25 MG; Start 04/02/16 at 21:00 Diagnostic Test (Pha) 1 ea 1 ea 02 XX Last administered on 04/05/16 02:10; Admin Dose 1 EA; Start 04/03/16 at 02:00 Vancomycin HCl/ Sodium Chloride (Vancocin/NS) 150 ml @ 75 mls/hr Q12H IVPB Last administered on 04/06/16 06:09; Admin Dose 75 MLS/HR; Start 04/04/16 at 06: 00 Levofloxacin (Levaquin) 750 mg DAILY@06 PO Last administered on 04/06/16 06:09 ; Admin Dose 750 MG; Start 04/06/16 at 06:00 Tramadol HCl (Ultram) 50 mg Q6H PRN PO PAIN Last administered on 04/06/16 04:37 ; Admin Dose 50 MG; Start 04/05/16 at 13:30 Lactobacillus Acidophilus/ Rhamnosus (Culturelle) 1 cap BID PO Last administered on 04/06/16 09:27; Admin Dose 1 CAP; Start 04/05/16 at 14:30 Insulin Glargine (Lantus) 8 unit QHS SC Last administered on 04/05/16 23:26; Admin Dose 8 UNIT; Start 04/06/16 at 21:00 GABBY HERRERA NP Apr 06, 2016 13:07
[2016-04-06] MEDS: PIPER-TAZO 3.375 GM IV (PMX) 100 ML IVPB SCH ×2 (14:03→20:00)
[2016-04-06] MEDS: GUAIFENESIN/DM 5ML CUP PO PRN ×2 (14:10→17:50)
--- NOTE | 2016-04-06 14:41 | RADRPT ---
PROCEDURE: XR Chest. CLINICAL INDICATION: Fever TECHNIQUE: PA and lateral chest x-ray. COMPARISON: 07/16/2015 FINDINGS: There are prominent bronchovascular markings with irregular contours. There is mild peribronchial soft tissue thickening. 1 cm symmetric nodular densities in the lung bases are consistent with nipple shadows. There is no focal consolidation. There is no evidence of pleural effusion. No pneumothorax identified. The cardiomediastinal silhouette is unremarkable. The osseous structures are unremarkable. The soft tissues are within normal limits. IMPRESSION: 1. Prominent bronchovascular markings with irregular contours and peribronchial soft tissue thicken ing. These finding may indicate bronchitis or smoking related airways disease.. 2. No definite evidence of pneumonia. RPTAT: QQ .Lazaro Faria MD, Date Time Electronically viewed and signed by .Lazaro Faria MD, on 04/06/2016 14:41 .M/
--- NOTE | 2016-04-06 15:08 | PN ---
Date/Time of Note Date/Time of Note DATE: 04/06/16 TIME: 14:59 Assessment/Plan VTE Prophylaxis VTE Prophylaxis Intervention: SCD's Lines/Catheters IV Catheter Type (from Nrs): Saline Lock Urinary Cath still in place: No Assessment/Plan Assessment/Plan [facility] 1. 51 yo man who is hospital day 6 for right foot osteomyelitis/cellulitis on outpatient MRI 03/26, now post-op day 3 s/p amputation 5th toe and I&D of abscess. Febrile again overnight, in conjunction with increased sinus symptoms. Hard to distinguish pain of infection in his foot from the typical post-op pain. * Per ID recommendations, will change to Zosyn. * Continue Levaquin 750 mg po daily x 6 weeks * Follow-up with Dr Cline on Monday 04/10, right post op shoe OK for right foot and patient can be partially weight bearing per Dr Cline 2. Diabetes Mellitus. Uncontrolled, with HgbA1C of 11.6%. * Continue Lantus 14 u qhs and Novolog 4 u QAC and SSI. 3. Hypertension, controlled on Cozaar and Norvasc 4. Bipolar disorder; continue outpatient medications 5. ETOH abuse history, patient has been sober for 1 month now and determined to remain so 6. Mild acute renal failure, now resolved. 7. Prophylaxis: Lovenox for dvt ppx and Pepcid for GI ppx 8. Disposition: Holding discharge today in light of ID recommendations to change IV antibiotics. Home Health to be consulted for wound care and f/u with Dr Cline 04/10. Luis Ferrara MD PhD [phone] Subjective 24 Hr Interval Summary Free Text/Dictation Coughing more this morning, with sinus congestion in the face. Eating well, with no nausea. No dyspnea or chest discomfort. He has post-operative pain in the right foot. Exam/Review of Systems Vital Signs Vitals Vital Signs Date Time Temp Pulse Resp B/P Pulse Ox O2 Delivery O2 Flow Rate FiO2 04/06/16 08:08 100.3 98 18 145/86 96 04/06/16 01:04 Room Air Intake and Output 04/05/16 04/05/16 04/06/16 15:00 23:00 07:00 Intake Total 150 ml 1760 ml 480 ml Output Total 600 ml Balance 150 ml 1760 ml -120 ml Exam Constitutional: Alert, well developed, mildly uncomfortable-appearing. Respiratory: Clear to auscultation, normal air movement. No frontal sinus tenderness. Cardiovascular: nl pulses, regular rate and rhythm Gastrointestinal: non-tender, soft Musculoskeletal: Right foot with post-surgical incisions. Bandages clean, dry , and intact. Neurological: [employer] II-XII intact, nl mental status, nl speech, nl strength, normal affect and executive function. Results Result Diagram: 04/05/1620 04/05/16 0520 Results 24 hrs Laboratory Tests Test 04/05/16 17:27 04/05/16 18:30 04/05/16 20:45 04/05/16 22:46 Bedside Glucose 181 159 101 99 Test 04/06/16 08:08 04/06/16 12:04 Bedside Glucose 155 248 H Medications Medications Current Medications Acetaminophen (Tylenol Tab) 650 mg Q4H PRN PO pain/fever Last administered on 09:26; Admin Dose 650 MG; Start 04/02/16 at 01:00 Ondansetron HCl (Zofran Inj) 4 mg Q4H PRN IV nausea Last administered on 04:38; Admin Dose 4 MG; Start 04/02/16 at 01:00 Carbamazepine (Tegretol) 200 mg QAM PO Last administered on 04/06/16 09:27; Admin Dose 200 MG; Start 04/02/16 at 09:00 Fluoxetine HCl (Prozac) 40 mg QAM PO Last administered on 04/06/16 09:28; Admin Dose 40 MG; Start 04/02/16 at 09:00 Gabapentin (Neurontin) 300 mg BID PO Last administered on 04/06/16 09:28; Admin Dose 300 MG; Start 04/02/16 at 09:00 Phenytoin (Dilantin) 300 mg BID PO Last administered on 04/06/16 09:28; Admin Dose 300 MG; Start 04/02/16 at 09:00 Quetiapine Fumarate (Seroquel) 100 mg QHS PO Last administered on 04/05/16 20: 29; Admin Dose 100 MG; Start 04/02/16 at 21:00 Amlodipine Besylate (Norvasc) 5 mg BID PO Last administered on 04/06/16 09:28; Admin Dose 5 MG; Start 04/02/16 at 01:00 Miscellaneous Information 1 ea NOTE XX ; Start 04/02/16 at 01:30 Glucose (Glutose) 15 gm Q15M PRN PO DECREASED GLUCOSE; Start 04/02/16 at 01:30 Glucose (Glutose) 22.5 gm Q15M PRN PO DECREASED GLUCOSE; Start 04/02/16 at 01: 30 Dextrose (D50w Syringe) 25 ml Q15M PRN IV DECREASED GLUCOSE; Start 04/02/16 at 01:30 Dextrose (D50w Syringe) 50 ml Q15M PRN IV DECREASED GLUCOSE; Start 04/02/16 at 01:30 Glucagon (Glucagen) 1 mg Q15M PRN IM DECREASED GLUCOSE; Start 04/02/16 at 01:30 Glucose (Glutose) 15 gm Q15M PRN BUCCAL DECREASED GLUCOSE; Start 04/02/16 at 01 :30 Losartan Potassium (Cozaar) 25 mg BID PO Last administered on 04/06/16 09:27; Admin Dose 25 MG; Start 04/02/16 at 21:00 Diagnostic Test (Pha) 1 ea 1 ea 02 XX Last administered on 04/05/16 02:10; Admin Dose 1 EA; Start 04/03/16 at 02:00 Vancomycin HCl/ Sodium Chloride (Vancocin/NS) 150 ml @ 75 mls/hr Q12H IVPB Last administered on 04/06/16 06:09; Admin Dose 75 MLS/HR; Start 04/04/16 at 06: 00 Tramadol HCl (Ultram) 50 mg Q6H PRN PO PAIN Last administered on 04/06/16 14:10 ; Admin Dose 50 MG; Start 04/05/16 at 13:30 Lactobacillus Acidophilus/ Rhamnosus (Culturelle) 1 cap BID PO Last administered on 04/06/16 09:27; Admin Dose 1 CAP; Start 04/05/16 at 14:30 Insulin Glargine 8 unit 8 unit QHS SC Last administered on 04/05/16 23:26; Admin Dose 8 UNIT; Start 04/06/16 at 21:00 Piperacillin Sod/ Tazobactam Sod (Zosyn 3.375gm/ 100 ml (Pmx)) 100 ml @ 200 mls /hr Q6 IVPB Last administered on 04/06/16 14:03; Admin Dose 200 MLS/HR; Start 04/06/16 at 13:30 Guaifenesin/ Dextromethorphan (Robitussin Dm Liquid Cup) 5 ml Q4H PRN PO COUGH Last administered on 04/06/16 14:10; Admin Dose 5 ML; Start 04/06/16 at 14:00 Miscellaneous Information (*Rx Drug Level Order Reminder*) VANCOMYCIN TROUGH 04/06 AT 1700 ONCE ONCE XX ; Start 04/06/16 at 17:00; Stop 04/06/16 at 17:01 AZUL FERRARA M.D. Apr 06, 2016 15:08 AZUL FERRARA M.D. Apr 06, 2016 15:08
--- NOTE | 2016-04-06 16:07 | RADRPT ---
PROCEDURE: Sinus series CLINICAL INDICATION: Sinusitis TECHNIQUE: 4 views performed. COMPARISON: No comparison available FINDINGS: There is a normal development of the paranasal sinuses. No air fluid levels are identified. There i s left maxillary mucosal thickening. The osseous structures are unremarkable . No fractures or oss eous lesions are identified. The soft tissues are unremarkable. IMPRESSION: Left maxillary mucosal thickening (sinus disease) RPTAT: HGDB .Shiva Agrawal MD, MD Date Time Electronically viewed and signed by .Shiva Agrawal MD, on 04/06/2016 16:06 .B/
[2016-04-06] MEDS: GUAIFENESIN LA 600 MG TABSR PO SCH ×2 (17:50→21:00)
[2016-04-06 19:44] VITALS: BP 143/89; PULSE 97; RESP 18
[2016-04-06] MEDS: QUETIAPINE 100 MG TAB PO SCH (21:38)
[2016-04-06] MEDS: INSULIN GLARGINE [LANtus] 3 ML PEN SC SCH (21:50)
[2016-04-07] MEDS: PIPER-TAZO 3.375 GM IV (PMX) 100 ML IVPB SCH ×3 (01:05→12:00)
[2016-04-07] MEDS: ACCUCHECK XX SCH (02:52)
[2016-04-07] MEDS: GUAIFENESIN/DM 5ML CUP PO PRN ×2 (03:59→08:39)
[2016-04-07] MEDS: VANCOMYCIN 750 MG in SOD CHLORIDE 0.9% 150 ML IVPB SCH (06:52)
[2016-04-07] MEDS: INSULIN ASPART [NOVOLOG] 3 ML PEN SC SCH ×4 (08:07→12:05)
[2016-04-07 08:41] VITALS: BP 140/83; PULSE 97; RESP 22
[2016-04-07] MEDS: PHENYTOIN 100 MG CAP PO SCH (08:43)
[2016-04-07] MEDS: LACTOBACILLUS RHAMNOSUS CAP PO SCH (08:44)
[2016-04-07] MEDS: carBAMAZepine CHEW 100 MG CHEW PO SCH (08:44)
[2016-04-07] MEDS: GUAIFENESIN LA 600 MG TABSR PO SCH (08:44)
[2016-04-07] MEDS: AMLODIPINE 5 MG TAB PO SCH (08:45)
[2016-04-07] MEDS: FLUOXETINE 20 MG CAP PO SCH (08:45)
[2016-04-07] MEDS: LOSARTAN 25 MG TAB PO SCH (08:45)
[2016-04-07] MEDS: GABAPENTIN 300 MG CAP PO SCH (08:45)
[2016-04-07 12:04] LABS: BASOPHILS % 0.2 % (0.0-2.0); EOSINOPHILS % 0.4 % (0.0-7.0); HEMATOCRIT 39.6 % (42.0-52.0); HEMOGLOBIN 13.3 g/dl (14.0-18.0); LYMPHOCYTES # 0.7 10^3/ul (0.8-2.9); MEAN CORPUSCULAR HEMOGLOBIN 28.8 pg (29.0-33.0); MEAN CORPUSCULAR HGB CONC 33.6 g/dl (32.0-37.0); MEAN CORPUSCULAR VOLUME 85.8 fl (82.0-101.0); MONOCYTES % 13.1 % (0.0-11.0); NEUTROPHIL # 5.6 10^3/ul (1.6-7.5); NEUTROPHILS % 76.3 % (39.0-77.0); PLATELET COUNT 400 10^3/UL (140-440); RED BLOOD COUNT 4.62 10^6/ul (4.70-6.10); RED CELL DISTRIBUTION WIDTH 13.8 % (11.5-14.5); UNCORRECTED WBC 7.4 10^3/ul (4.8-10.8); WHITE BLOOD COUNT 7.4 10^3/ul (4.8-10.8)
[2016-04-07 12:06] LABS: CONDITION 1
[2016-04-07 12:11] LABS: POTASSIUM 4.4 mmol/L (3.5-5.1)
[2016-04-07 12:13] LABS: CREATININE 0.95 mg/dl (0.61-1.24)
[2016-04-07 12:14] LABS: CALCIUM 9.3 mg/dl (8.4-10.2)
--- NOTE | 2016-04-07 12:57 | DS ---
Date/Time of Note Date/Time of Note DATE: 04/07/16 TIME: 12:51 Discharge Summary Admission/Discharge Info Admit Date/Time Apr 01, 2016 at 22:25 Discharge Date/Time Apr 07, 2016 Final Diagnosis Osteomyelitis 5th metatarsal head and proximal phalanx, and of the 1st metatarsal and proximal phalanx Patient Condition: Good Consults Infectious disease (Ras Hobbs MD) Podiatry (William Franklin DPM) Procedures Amputation of right fifth toe, with incision and drainage right first MTP and culture Hx of Present Illness 51-year-old patient of Dr. Carmela Cartagena with a history of bipolar disease , depression, seizure disorder, diabetes mellitus type 2, diabetic foot ulcers with osteomyelitis and previous chronic alcohol abuse who presented to the [facility] ED complaining of worsening pain, swelling, redness to the lateral aspect of his right foot and fifth toe. He had no recent history of trauma or injury. MRI done March 28, 2016, showed osteomyelitis of the fifth metatarsal head and fifth proximal phalanx with associated prominent cellulitis; osteomyelitis of the first metatarsal bone and first proximal phalanx with associated prominent cellulitis progressive in the interval between studies; and prominent tenosynovitis of the flexor hallux longus tendon. He had no other symptoms of focal infection or systemicization. He is followed by Podiatry, Dr. William Franklin. Hospital Course In the ER, labs showed hemoglobin of 12.2 g/dL, white count 11,500, platelets of 160,000. Sodium 133, potassium 4.8, chloride 92, bicarbonate 27, BUN 18, creatinine 0.89, glucose 353. Liver function tests revealed AST 29, ALT 56, alkaline phosphatase 518, total bilirubin 0.0. Foot x-ray confirms the findings as reported in the MRI with osteomyelitis of the 1st and 5th metatarsals. He was admitted for right foot osteomyelitis/cellulitis on outpatient MRI (03/26/16). He underwent amputation of the 5th toe, with incision and drainage of an abscess. Culture showed Proteus and Corynebacterium species , the latter possibly a skin contaminant. He was treated with intravenous levofloxacin 750mg daily, switched to oral. He developed moderate sinus congestion yesterday, and was febrile again overnight. But treatment with guaifenesen starting last night resulted in considerable relief, and he was afebrile today. The pain in his right foot was also improved, now four days post-operatively. He was treated yesterday with a course of Zosyn IV. But blood cultures have been negative, and CXR was clear. He was treated with Lantus insulin 14u at bedtime and Novolog 4u before meals. Diabetes was felt to be uncontrolled before admission, with HgbA1C of 11.6%. Hypertension was controlled with his outpatient Cozaar and Norvasc. In consultation with Gabby Goodman NP (ID), we agreed to send him home on six weeks of oral levofloxacin 750 mg po daily. Home Meds Active Scripts Lactobacillus Rhamnosus* (Culturelle*) 1 Each Cap.sprink, 1 CAP PO BID for 60 Days, CAP Prov:BEBETOBernardaLaraCALVIN Miguel 04/05/16 Amlodipine Besylate* (Amlodipine Besylate*) 5 Mg Tablet, 5 MG PO BID for 30 Days , TAB 3 Refills Prov:BEBETOBernardaLaraEVANGELISTAVINAY Rivera 04/05/16 Losartan Potassium* (Cozaar*) 25 Mg Tablet, 25 MG PO BID for 30 Days, TAB 3 Refills Prov:BEBETOBernardaROLA Rivera 04/05/16 Levofloxacin* (Levaquin*) 750 Mg Tablet, 750 MG PO DAILY@06 for 42 Days, TAB 6 weeks course Prov:BEBETOBernardaLaraEVANGELISTAVINAY Rivera 04/05/16 Insulin Aspart* (Novolog Insulin Pen*) 100 Unit/Ml Soln, 4 UNIT SC WITH MEALS for 30 Days Prov:BEBETOBernardaLaraEVANGELISTAVINAY Rivera 04/05/16 Tramadol HCl (Tramadol HCl) 50 Mg Tablet, 50 MG PO Q6 Y for PAIN, #10 TAB Prov:LAINA CRUZ MD 12/28/15 Reported Medications Insulin Glargine* (Lantus*) 100 Unit/Ml Soln, 15 UNIT SC QHS, #1 VIAL 04/01/16 Gabapentin* (Gabapentin*) 300 Mg Capsule, 300 MG PO BID, #60 CAP 07/21/15 Carbamazepine* (Carbamazepine*) 100 Mg Tab.chew, 200 MG PO QAM, #60 TAB.CHEW 06/26/15 Quetiapine Fumarate* (Seroquel*) 100 Mg Tablet, 100 MG PO QHS, TAB 10/22/14 Fluoxetine Hcl* (Prozac*) 40 Mg Capsule, 40 MG PO QAM, CAP 10/22/14 Phenytoin* Sodium Extended (Dilantin*) 100 Mg Capsule, 300 MG PO BID, CAP 10/22/14 Insulin Lispro (Humalog) 100 U/Ml Cartridge, 0 SC SLIDING SCALE AC, EA 111-150 = 1 UNIT 151-200 = 2 UNITS 201-250 = 4 UNITS 251-300 = 6 UNITS 301-350 = 8 UNITS 351-400 = 10 UNITS 401-450 = 12 UNITS 10/22/14 Discontinued Scripts Sulfamethoxazole-Trimethoprim* (Bactrim* DS) 800-160 Mg Tab, 1 TAB PO BID for 7 Days, TAB Prov:LAINA CRUZ MD 12/28/15 Cephalexin* (Keflex*) 500 Mg Capsule, 500 MG PO QID for 7 Days, CAP Prov:LAINA CRUZ MD 12/28/15 Sulfamethoxazole-Trimethoprim* (Bactrim* DS) 800-160 Mg Tab, 1 TAB PO BID for 7 Days, TAB Prov:LAINA CRUZ MD 11/09/15 Cephalexin* (Keflex*) 500 Mg Capsule, 500 MG PO QID for 7 Days, CAP Prov:LAINA CRUZ MD 11/09/15 Hydrocodone/Acetaminophen (Leiter 10-325 Tablet) 1 Each Tablet, 1 TAB PO Q6H Y for PAIN, #12 TAB Prov:LAINA CRUZ MD 11/09/15 Insulin Glargine* (Lantus*) 100 Unit/Ml Soln, 10 UNIT SC HS for 30 Days, 3 Refills Prov:TI TATE 07/28/15 Follow-up Plan Follow-up with Dr Franklin on Monday 04/10, right post op shoe OK for right foot and patient can be partially weight bearing per Dr Franklin Pending Labs Laboratory Tests Test 04/06/16 16:50 04/06/16 17:27 04/06/16 21:44 04/07/16 02:36 Vancomycin Level Trough 17.2ug/ml (10.0-20.0) Bedside Glucose 153mg/dL (70-220) 185mg/dL (70-220) 138mg/dL (70-220) Test 04/07/16 08:00 04/07/16 11:54 2/5/17 12:00 Bedside Glucose 145mg/dL (70-220) 212mg/dL (70-220) Anion Gap 19 (8-16) Basophils # 0.010^3/ul (0.0-0.1) Basophils % 0.2% (0.0-2.0) Blood Morphology Comment Blood Urea Nitrogen 19mg/dl (7-20) Calcium Level 9.3mg/dl (8.4-10.2) Carbon Dioxide Level 25mmol/L (21-31) Chloride Level 93mmol/L (97-110) Creatinine 0.95mg/dl (0.61-1.24) Eosinophils # 0.010^3/ul (0.0-0.5) Eosinophils % 0.4% (0.0-7.0) Glucose Level 237mg/dl (70-220) Hematocrit 39.6% (42.0-52.0) Hemoglobin 13.3g/dl (14.0-18.0) Lymphocytes # 0.710^3/ul (0.8-2.9) Lymphocytes % 10.0% (15.0-51.0) Mean Corpuscular Hemoglobin 28.8pg (29.0-33.0) Mean Corpuscular Hemoglobin Concent 33.6g/dl (32.0-37.0) Mean Corpuscular Volume 85.8fl (82.0-101.0) Mean Platelet Volume 8.0fl (7.4-10.4) Monocytes # 1.010^3/ul (0.3-0.9) Monocytes % 13.1% (0.0-11.0) Neutrophils # 5.610^3/ul (1.6-7.5) Neutrophils % 76.3% (39.0-77.0) Nucleated Red Blood Cells # 0.010^3/ul (0.0-0.0) Nucleated Red Blood Cells % 0.0/100WBC (0.0-0.0) Platelet Count 44043^3/UL (140-440) Potassium Level 4.4mmol/L (3.5-5.1) Red Blood Count 4.6210^6/ul (4.70-6.10) Red Cell Distribution Width 13.8% (11.5-14.5) Sodium Level 133mmol/L (135-144) White Blood Count 7.410^3/ul (4.8-10.8) Copies To: CC: GABBY HERRERA NP; TI TATE; WILLIAM FRANKLIN DPM, JOHN P. M.D. Apr 07, 2016 12:56 (4.8-10.8) Copies To: CC: GABBY HERRERA NP; TI TATE; WILLIAM FRANKLIN DPM, JOHN P. M.D. Apr 07, 2016 12:56
--- NOTE | 2016-04-07 15:58 | CONS ---
Date/Time of Note Date/Time of Note DATE: 04/07/16 TIME: 15:56 Assessment/Plan Assessment/Plan Chief Complaint/Hosp Course SUBJECTIVE: Awake, feels better, wants to go home, no fevers, nad PHYSICAL EXAMINATION: GENERAL: Well-developed, middle-aged, white man who is in no distress. HEENT: Head atraumatic, normocephalic. Sclerae anicteric. NECK: Supple. CHEST: Rise symmetrical. Breath sounds clear. HEART: S1, S2. ABDOMEN: Soft, bowel tones present. EXTREMITIES: With right foot dressing intact. ASSESSMENT: 1. Right foot cellulitis with toe osteomyelitis, status post incision and drainage with little toe amputation with culture growing Proteus penneri susceptible to Levaquin. 2. Diabetes. 3. Peripheral vascular disease. 4. History of seizures. 5. Sinusitis PLAN: Stable, cxr neg, continue abx, anticipate dc on oral Levaquin for 6 weeks , f/u with podiatry [facility] staff LOUIS Vivas Problems: Consultation Date/Type/Reason Admit Date/Time Apr 01, 2016 at 22:25 Initial Consult Date 04/02/16 Type of Consultation: ID Exam/Review of Systems Vital Signs Vitals Vital Signs Date Time Temp Pulse Resp B/P Pulse Ox O2 Delivery O2 Flow Rate FiO2 04/07/16 08:41 98.7 97 22 140/83 99 Room Air Intake and Output 04/06/16 04/06/16 04/07/16 15:00 23:00 07:00 Intake Total 250 ml 1350 ml 600 ml Output Total 840 ml 1200 ml Balance 250 ml 510 ml -600 ml Results Result Diagram: 04/07/16 1154 04/07/16 1154 Results 24 hrs Laboratory Tests Test 04/06/16 16:50 04/06/16 17:27 04/06/16 21:44 04/07/16 02:36 Vancomycin Level Trough 17.2 Bedside Glucose 153 185 138 Test 04/07/16 08:00 04/07/16 11:54 04/07/16 12:00 Bedside Glucose 145 212 Anion Gap 19 H Basophils # 0.0 Basophils % 0.2 Blood Morphology Comment Blood Urea Nitrogen 19 Calcium Level 9.3 Carbon Dioxide Level 25 Chloride Level 93 L Creatinine 0.95 Eosinophils # 0.0 Eosinophils % 0.4 Glucose Level 237 H Hematocrit 39.6 #L Hemoglobin 13.3 L Lymphocytes # 0.7 L Lymphocytes % 10.0 L Mean Corpuscular Hemoglobin 28.8 L Mean Corpuscular Hemoglobin Concent 33.6 Mean Corpuscular Volume 85.8 Mean Platelet Volume 8.0 Monocytes # 1.0 H Monocytes % 13.1 H Neutrophils # 5.6 Neutrophils % 76.3 Nucleated Red Blood Cells # 0.0 Nucleated Red Blood Cells % 0.0 Platelet Count 400 Potassium Level 4.4 Red Blood Count 4.62 #L Red Cell Distribution Width 13.8 Sodium Level 133 L White Blood Count 7.4 GABBY HERRERA NP Apr 07, 2016 15:58
[2016-04-07] MEDS ORDERED: VANCOMYCIN 500MG/NS (PMX) 100 ML IVPB SCH (18:00)
== END 2016-04-07 15:28 | disposition home or self-care (01) | DRG 617 ==
LOC: E/R 15:35 → MS2 22:25
PROVIDERS: ADMIT Legal Medicine; ATTEND Legal Medicine
PROC: 0S9M0ZX Drainage of Right Metatarsal-Phalangeal Joint, Open Approach, Diagnostic (ICD-10-PCS; 2016-04-03)
PROC: 0Y6X0Z0 Detachment at Right 5th Toe, Complete, Open Approach (ICD-10-PCS; principal; 2016-04-03 21:30)
DX: E11.69 Type 2 diabetes mellitus with other specified complication (principal); M86.171 Other acute osteomyelitis, right ankle and foot; L03.115 Cellulitis of right lower limb; N17.9 Acute kidney failure, unspecified; M00.9 Pyogenic arthritis, unspecified; E11.51 Type 2 diabetes mellitus with diabetic peripheral angiopathy without gangrene; E11.42 Type 2 diabetes mellitus with diabetic polyneuropathy; I10 Essential (primary) hypertension; G40.909 Epilepsy, unspecified, not intractable, without status epilepticus; F31.9 Bipolar disorder, unspecified; F10.10 Alcohol abuse, uncomplicated; E11.65 Type 2 diabetes mellitus with hyperglycemia; B96.4 Proteus (mirabilis) (morganii) as the cause of diseases classified elsewhere; J32.9 Chronic sinusitis, unspecified; Z89.429 Acquired absence of other toe(s), unspecified side; Z79.4 Long term (current) use of insulin; Z89.421 Acquired absence of other right toe(s); Z79.899 Other long term (current) drug therapy
CPT/HCPCS: 70220; 71020; 73630; 80048; 80053; 80156; 80185; 80202; 82962; 83036; 83735; 84100; 85025; 85651; 86140; 87040; 87070; 87086; 88304; 88311; 90686; 93923; 96365; 96366; 96372; 96375; 96376; J1815; J2250; J2270; J2370; J2405; J2543; J3010; J3370; J3475; J7030; J7042; L3260-RT

== ENCOUNTER 2016-06-14 18:16 | Inpatient (IN) | payer OTHER ==
[~2016-06-14] VITALS: Ht 172.7 cm; Wt 68.0 kg
[~2016-06-14 18:16] MED LIST changes: +AMLO-145 PO; -BACTDS PO; -CEPH-443 PO; -HYDR-902 PO; +LACT1CAP57 PO; +LEVO750T25 PO; +LOSA25TA2 PO; +NOVO3I SC
[2016-06-14 19:36] LABS: ADD SCAN DIFF NO
[2016-06-14 19:37] LABS: BASOPHIL # 0.1 10^3/ul (0.0-0.1); BASOPHILS % 0.7 % (0.0-2.0); EOSINOPHILS # 0.1 10^3/ul (0.0-0.5); EOSINOPHILS % 1.2 % (0.0-7.0); HEMATOCRIT 35.3 % (42.0-52.0); HEMOGLOBIN 11.3 g/dl (14.0-18.0); LYMPHOCYTES # 1.6 10^3/ul (0.8-2.9); LYMPHOCYTES % 19.2 % (15.0-51.0); MEAN CORPUSCULAR HEMOGLOBIN 25.7 pg (29.0-33.0); MEAN CORPUSCULAR VOLUME 80.4 fl (82.0-101.0); MEAN PLATELET VOLUME 9.1 fl (7.4-10.4); MONOCYTE # 0.9 10^3/ul (0.3-0.9); MONOCYTES % 10.4 % (0.0-11.0); NEUTROPHIL # 5.5 10^3/ul (1.6-7.5); PLATELET COUNT 569 10^3/UL (140-415); RED BLOOD COUNT 4.39 10^6/ul (4.70-6.10); RED CELL DISTRIBUTION WIDTH 14.8 % (11.5-14.5); WHITE BLOOD COUNT 8.1 10^3/ul (4.8-10.8)
[2016-06-14 19:51] LABS: ALBUMIN 4.4 g/dl (3.3-4.9)
[2016-06-14 19:52] LABS: POTASSIUM 4.8 mmol/L (3.5-5.1)
[2016-06-14 19:54] LABS: TOTAL PROTEIN 8.8 g/dl (6.1-8.1)
[2016-06-14 19:55] LABS: CALCIUM 9.5 mg/dl (8.4-10.2)
--- NOTE | 2016-06-14 20:29 | RADRPT ---
PROCEDURE: XR right foot. CLINICAL INDICATION: Right foot pain TECHNIQUE: AP, lateral and oblique views of the right foot were obtained. COMPARISON: 04/03/2016 FINDINGS: Destructive appearance of the first metatarsal head and first metatarsal phalangeal joint appears wo rse unable to exclude progressive septic arthritis and osteomyelitis with increased soft tissue swel ling. New jagged lucency through the second metatarsal neck concerning for a nondisplaced fracture, surgical resection of the second phalanges is again noted. Interval surgical change of the fifth m etatarsal is suspected versus severe bony destruction and osteomyelitis in that location. The third and fourth digits are unremarkable. The osseous structures of the midfoot and hindfoot are grossly normal. Severe soft tissue swelling of the midfoot is again noted. No subcutaneous gas is evident . Extensive arteriosclerotic calcification is again seen . There is no evidence for radiopaque fore ign body. RPTAT:HJJR IMPRESSION: 1. Compared to the study of 04/03/2016, there is bony destruction of the fifth metatarsal which may be related to interval surgery but aggressive osteomyelitis in the fifth metatarsal region cannot b e excluded. 2. Nondisplaced fracture involving the second metatarsal neck is now evident. 3. Worsening of bony destruction involving the metatarsal head of the great toe with increased soft tissue swelling concerning for progressing osteomyelitis and septic arthritis. 4. Surgical resection of the second and fifth phalanges again seen. 5. Diffuse severe soft tissue swelling is worse. Physician Brayden Date Time Electronically viewed and signed by Physician Brayden on 06/14/2016 20:29 /
[2016-06-14] MEDS ORDERED: PIPER-TAZO 3.375 GM IV (PMX) 100 ML IVPB STA (20:38)
[2016-06-14] MEDS ORDERED: VANCOMYCIN 1 GM (PMX) 250 ML IVPB STA (20:38)
[2016-06-14] MEDS ORDERED: SODIUM CHLORIDE 0.9% 1L BAG IV* STA ×2 (20:38→21:41)
--- NOTE | 2016-06-14 21:41 | ERA ---
ER Documentation Chief Complaint Date/Time DATE: 06/14/16 TIME: 21:39 Chief Complaint BROUGHT IN VIA EMS AND [employer] DUE TO ETOH WITH LEFT FOOT WOUND DIABETIC HPI This is a 41-year-old male presents to the emergency room after being brought in by ambulance for evaluation of right-sided foot pain. This patient states that he lives by himself, he states that he has been having for pain for 1 months duration, he does state he has had a previous foot infection and bone infection in that foot and he has been medicating himself with alcohol. The patient does state he has diabetes and came to the ER for evaluation. He denies any fever or chills associated with this complaint. ROS All systems reviewed and are negative except as per history of present illness. Medications Home Meds Active Scripts Lactobacillus Rhamnosus* (Culturelle*) 1 Each Cap.sprink, 1 CAP PO BID for 60 Days, CAP Prov:TI TATE 04/05/16 Amlodipine Besylate* (Amlodipine Besylate*) 5 Mg Tablet, 5 MG PO BID for 30 Days , TAB 3 Refills Prov:TI TATE 04/05/16 Losartan Potassium* (Cozaar*) 25 Mg Tablet, 25 MG PO BID for 30 Days, TAB 3 Refills Prov:TI TATE 04/05/16 Levofloxacin* (Levaquin*) 750 Mg Tablet, 750 MG PO DAILY@06 for 42 Days, TAB 6 weeks course Prov:TI TATE 04/05/16 Insulin Aspart* (Novolog Insulin Pen*) 100 Unit/Ml Soln, 4 UNIT SC WITH MEALS for 30 Days Prov:TI TATE 04/05/16 Tramadol HCl (Tramadol HCl) 50 Mg Tablet, 50 MG PO Q6 Y for PAIN, #10 TAB Prov:LAINA CRUZ MD 12/28/15 Reported Medications Insulin Glargine* (Lantus*) 100 Unit/Ml Soln, 15 UNIT SC QHS, #1 VIAL 04/01/16 Gabapentin* (Gabapentin*) 300 Mg Capsule, 300 MG PO BID, #60 CAP 07/21/15 Carbamazepine* (Carbamazepine*) 100 Mg Tab.chew, 200 MG PO QAM, #60 TAB.CHEW 06/26/15 Quetiapine Fumarate* (Seroquel*) 100 Mg Tablet, 100 MG PO QHS, TAB 10/22/14 Fluoxetine Hcl* (Prozac*) 40 Mg Capsule, 40 MG PO QAM, CAP 10/22/14 Phenytoin* Sodium Extended (Dilantin*) 100 Mg Capsule, 300 MG PO BID, CAP 10/22/14 Insulin Lispro (Humalog) 100 U/Ml Cartridge, 0 SC SLIDING SCALE AC, EA 111-150 = 1 UNIT 151-200 = 2 UNITS 201-250 = 4 UNITS 251-300 = 6 UNITS 301-350 = 8 UNITS 351-400 = 10 UNITS 401-450 = 12 UNITS 10/22/14 Allergies Allergies: Coded Allergies: No Known Drug Allergy (Verified Allergy, Unknown, 04/01/16) PMhx/Soc History of Surgery: Yes (RIGHT SECOND TOE AMPUTATION ) Anesthesia Reaction: No Hx Neurological Disorder: Yes (SEIZURES ) Hx Respiratory Disorders: No Hx Cardiac Disorders: Yes (HTN) Hx Psychiatric Problems: No Hx Miscellaneous Medical Probl: No Hx Alcohol Use: Yes Hx Substance Use: No Hx Tobacco Use: Yes Smoking Status: Current some day smoker Physical Exam Vitals Vital Signs Date Time Temp Pulse Resp B/P Pulse Ox O2 Delivery O2 Flow Rate FiO2 06/14/16 18:21 98.6 110 20 163/96 96 Physical Exam INITIAL VITAL SIGNS: Reviewed by me GENERAL: The patient is well developed and appropriate for usual state of health in no apparent distress HEENT: Pupils equal, round, and reactive to light. EOMI. There is no scleral icterus. NECK: C-spine is soft and supple, there is no meningismus. There is no cervical lymphadenopathy. LUNGS: Clear to auscultation bilaterally. There are no rales, wheezes or rhonchi. HEART: Regular rate and rhythm, no murmurs, clicks, rubs or gallops. ABDOMEN: Soft, non-tender, non-distended. There are bowel sounds in all four quadrants. No rebound or guarding. EXTREMITIES: Soft tissue swelling of the right foot, partially dictation of toes , negative skin sloughing, 1 cm ulcer noted at the lateral aspect of the right foot NEUROLOGICAL: The patient moves all four extremities with 5/5 strength. Cranial nerves II - XII are intact. Normal gait. Alert and oriented SKIN: There is no apparent rash or petechiae. HEME/LYMPHATIC: There is no evidence of excessive bruising or lymphedema. PSYCHIATRIC: The patient does not appear anxious or depressed. Result Diagram: 06/14/16191906/14/161919 Results 24 hrs Laboratory Tests Test 06/14/16 19:20 White Blood Count 8.110^3/ul Red Blood Count 4.3910^6/ul Hemoglobin 11.3g/dl Hematocrit 35.3% Mean Corpuscular Volume 80.4fl Mean Corpuscular Hemoglobin 25.7pg Mean Corpuscular Hemoglobin Concent 32.0g/dl Red Cell Distribution Width 14.8% Platelet Count 13580^3/UL Mean Platelet Volume 9.1fl Neutrophils % 68.0% Lymphocytes % 19.2% Monocytes % 10.4% Eosinophils % 1.2% Basophils % 0.7% Nucleated Red Blood Cells % 0.0/100WBC Neutrophils # 5.510^3/ul Lymphocytes # 1.610^3/ul Monocytes # 0.910^3/ul Eosinophils # 0.110^3/ul Basophils # 0.110^3/ul Nucleated Red Blood Cells # 0.010^3/ul Sodium Level 138mmol/L Potassium Level 4.8mmol/L Chloride Level 91mmol/L Carbon Dioxide Level 29mmol/L Anion Gap 23 Blood Urea Nitrogen 14mg/dl Creatinine 1.00mg/dl Glucose Level 152mg/dl Calcium Level 9.5mg/dl Total Bilirubin 0.0mg/dl Direct Bilirubin 0.00mg/dl Indirect Bilirubin 0.0mg/dl Aspartate Amino Transf (AST/SGOT) 27IU/L Alanine Aminotransferase (ALT/SGPT) 28IU/L Alkaline Phosphatase 288IU/L Total Protein 8.8g/dl Albumin 4.4g/dl Globulin 4.40g/dl Albumin/Globulin Ratio 1.00 Current Medications Medications (Trade) Dose Ordered Sig/Nidia Route PRN Reason Start Time Stop Time Status Last Admin Dose Admin Sodium Chloride 2110 ml 2,110 ml BOLUS OVER 2 HOURS STAT IV* 06/14/16 20:38 06/14/16 20:40 DC 06/14/16 21:17 Vancomycin HCl 250 ml @ 125 mls/hr ONCE STAT IVPB 06/14/16 20:38 06/14/16 22:37 Piperacillin Sod/ Tazobactam Sod (Zosyn 3.375gm/ 100 ml (Pmx)) 100 ml @ 100 mls/hr ONCE STAT IVPB 06/14/16 20:38 06/14/16 21:37 DC 06/14/16 21:16 Procedures/MDM X-ray Foot 3V Interpreted by me: Bones: No fracture, osteomyelitis Joints: No dislocation Foreign body: None This 31-year-old male presents to the emergency room for evaluation of right- sided foot pain. This patient did have soft tissue swelling of his right foot, and I did obtain an x-ray which did confirm my suspicion of osteomyelitis. This patient did smell of alcohol, and is intoxicated. Patient was started on vancomycin and Zosyn and will be admitted to Dr. Ferrara on the [facility] floor as he is hemodynamically stable at this time. He does have a lactic acid of 3, was given greater than 30 cc/kg of IV normal saline. Departure Diagnosis: Primary Impression: Osteomyelitis of toe of right foot Additional Impressions: Alcoholic intoxication Microcytic anemia Lactic acidosis Condition: Fair YOLANDE TREJO DO Jun 14, 2016 21:41
[2016-06-14] MEDS: traMADol 50 MG TAB PO PRN (22:47)
[2016-06-14 22:55] VITALS: TEMP 99
[2016-06-14] MEDS ORDERED: ONDANSETRON 4 MG TAB PO PRN (23:00)
[2016-06-14] MEDS ORDERED: ACETAMINOPHEN 325 MG TAB PO PRN (23:00)
[2016-06-14] MEDS ORDERED: DOCUSATE SODIUM 100 MG CAP PO PRN (23:00)
[2016-06-14] MEDS ORDERED: NACL 0.9% 3 ML SYG IV SCH (23:00)
[2016-06-14] MEDS ORDERED: ZOLPIDEM 5 MG TAB PO PRN (23:00)
[2016-06-14 23:20] VITALS: Ht 172.7 cm; Wt 68.0 kg
[2016-06-14] MEDS: PHENYTOIN 100 MG CAP PO SCH (23:44)
[2016-06-14] MEDS: AMLODIPINE 5 MG TAB PO SCH (23:45)
[2016-06-14] MEDS ORDERED: GLUCOSE GEL 15 GRAM TUBE PO PRN ×2 (23:45)
[2016-06-14] MEDS: GABAPENTIN 300 MG CAP PO SCH (23:45)
[2016-06-14] MEDS ORDERED: GLUCAGON 1 MG INJ IM PRN (23:45)
[2016-06-14] MEDS ORDERED: DEXTROSE 50% 50 ML SYRINGE IV PRN ×2 (23:45)
[2016-06-14] MEDS ORDERED: GLUCOSE GEL 15 GRAM TUBE BUCCAL PRN (23:45)
[2016-06-14] MEDS: FAMOTIDINE 20 MG TAB PO SCH (23:45)
[2016-06-14] MEDS: LACTOBACILLUS RHAMNOSUS CAP PO SCH (23:45)
[2016-06-15] MEDS: HYDROCODONE/APAP (5/325) TAB PO PRN ×3 (01:32→14:51)
[2016-06-15 05:45] LABS: ADD SCAN DIFF NO
[2016-06-15 05:55] LABS: BASOPHILS % 0.4 % (0.0-2.0); EOSINOPHILS # 0.1 10^3/ul (0.0-0.5); EOSINOPHILS % 0.7 % (0.0-7.0); HEMATOCRIT 32.6 % (42.0-52.0); HEMOGLOBIN 10.4 g/dl (14.0-18.0); LYMPHOCYTES # 0.8 10^3/ul (0.8-2.9); LYMPHOCYTES % 12.3 % (15.0-51.0); MEAN CORPUSCULAR HEMOGLOBIN 25.9 pg (29.0-33.0); MEAN CORPUSCULAR HGB CONC 31.9 g/dl (32.0-37.0); MEAN CORPUSCULAR VOLUME 81.1 fl (82.0-101.0); MEAN PLATELET VOLUME 9.3 fl (7.4-10.4); MONOCYTE # 0.8 10^3/ul (0.3-0.9); MONOCYTES % 11.2 % (0.0-11.0); PLATELET COUNT 533 10^3/UL (140-415); RED BLOOD COUNT 4.02 10^6/ul (4.70-6.10); RED CELL DISTRIBUTION WIDTH 14.9 % (11.5-14.5); WHITE BLOOD COUNT 6.7 10^3/ul (4.8-10.8)
[2016-06-15 06:24] LABS: POTASSIUM 4.1 mmol/L (3.5-5.1)
[2016-06-15 06:26] LABS: CREATININE 0.97 mg/dl (0.61-1.24)
[2016-06-15 06:27] LABS: CALCIUM 8.3 mg/dl (8.4-10.2)
[2016-06-15] MEDS: AMLODIPINE 5 MG TAB PO SCH ×2 (08:17→20:27)
[2016-06-15] MEDS: LACTOBACILLUS RHAMNOSUS CAP PO SCH ×2 (08:18→20:26)
[2016-06-15] MEDS: FLUOXETINE 20 MG CAP PO SCH (08:18)
[2016-06-15] MEDS: FAMOTIDINE 20 MG TAB PO SCH ×2 (08:18→20:26)
[2016-06-15] MEDS: PHENYTOIN 100 MG CAP PO SCH ×2 (08:18→20:26)
[2016-06-15] MEDS: LOSARTAN 25 MG TAB PO SCH ×2 (08:18→20:27)
[2016-06-15] MEDS: GABAPENTIN 300 MG CAP PO SCH ×2 (08:18→20:25)
[2016-06-15] MEDS: carBAMAZepine CHEW 100 MG CHEW PO SCH (08:18)
[2016-06-15 08:19] VITALS: BP 171/96; RESP 18
[2016-06-15] MEDS: INSULIN ASPART [NOVOLOG] 3 ML PEN SC SCH ×3 (08:19→17:29)
[2016-06-15] MEDS: ENOXAPARIN 40 MG/0.4 ML SYG SC SCH (08:20)
--- NOTE | 2016-06-15 09:05 | HP ---
Date/Time of Note Date/Time of Note DATE: 06/15/16 TIME: 09:03 Assessment/Plan VTE Prophylaxis VTE Prophylaxis Intervention: SCD's Lines/Catheters IV Catheter Type (from [facility]): Peripheral IV Urinary Cath still in place: No Assessment/Plan Assessment/Plan [facility] 1. 51yo man with persistent, progressive osteomyelitis of the right foot. * Podiatry evaluation, may require new surgical debridement. Paged Dr. Cline this morning. * Started on Vancomycin and Zosyn in ER * Blood cultures pending * Send urine culture, INR 2. Diabetes. * Continue Lantus * Accu-Cheks qAC and qHS * No sliding scale. * Zofran for nausea 3. Moderate hypertension this morning (SBP 171) * Continue losartan and amlodipine * Hydralazine 10mg IV q6h PRN for SBP > 160. 4. Alcohol use history, with EtOH level of 208 mg/dl last night. * Withdrawal monitoring 5. Prophylaxis with SCDs for now; famotidine for GI 6. Disposition: Anticipate his living with his daughter after discharge. Luis Ferrara MD PhD [phone] HPI/ROS Admit Date/Time Admit Date/Time Jun 14, 2016 at 21:38 Hx of Present Illness CHIEF COMPLAINT: Right foot pain and swelling. HISTORY OF PRESENT ILLNESS: Mr. Bedolla is a [address] of [address] Carmela Cartagena well-known to me from hospitalization in March who presented by ambulance last night to the [facility] emergency room with recurrent pain and swelling in his right foot that has been worsening for the past month. He has been taking [place] at home, but said it wasn't helping. There was new drainage around the fifth toe area, a previous amputation site. He also developed new pain back in the Achilles tendon area, with difficultly walking. The past two days he has had some fever and "cold sweats." He has been drinking more recently. MRI 03/2616 showed osteomyelitis of the fifth metatarsal head and fifth proximal phalanx with associated prominent cellulitis; osteomyelitis of the first metatarsal bone and first proximal phalanx with associated prominent cellulitis progressive in the interval between studies; and prominent tenosynovitis of the flexor hallux longus tendon. He had a prior diagnosis of osteomyelitis and was admitted to [facility] in July 2015, resulting in amputation of the 2nd toe. Followed for Podiatry by Dr. William Cline. He underwent amputation of the 5th toe, with incision and drainage of an abscess. Culture showed Proteus and Corynebacterium species, the latter possibly a skin contaminant. He was treated with intravenous levofloxacin 750mg daily, and in consultation with Madiha Goodman NP (ID) was discharged home on six weeks of oral levofloxacin 750 mg po daily. His diabetes regimen then consisted of Lantus 14 units at bedtime and Novolog 4u before meals. Diabetes was felt to be uncontrolled before admission then, with HgbA1C of 11.6%. MEDICATIONS: 1. Lantus 15 units daily, sliding scale. 2. Tegretol 200 mg daily. 3. Prozac 40 mg daily. 4. Neurontin 300 mg b.i.d. 5. Phenytoin 300 mg b.i.d. 6. Seroquel 100 mg at bedtime. 7. Tramadol p.r.n. ALLERGIES: NO KNOWN DRUG ALLERGIES. ROS More headaches, no visual change. Some burning with urination. Poor appetite, but no nausea or emesis. PMH/Family/Social Past Medical History Medical History: diabetes, high cholesterol, hypertension, other (Bipolar disease, depression, seizure disorder) Social History Lives alone. His daughter is planning on moving in with him, and she is with her first child. Alcohol Use: heavy Smoking Status: Smoker,current status unk Exam/Review of Systems Vital Signs Vitals Vital Signs Date Time Temp Pulse Resp B/P Pulse Ox O2 Delivery O2 Flow Rate FiO2 06/15/16 08:19 98.5 102 18 171/96 98 06/14/16 22:55 Room Air Intake and Output 06/14/16 06/14/16 06/15/16 15:00 23:00 07:00 Intake Total 2760 ml Output Total 600 ml Balance 2160 ml Exam Exam GENERAL: Friendly, calm, mildly uncomfortable-appearing. HEENT: Warm to touch. Normocephalic, atraumatic without evident scleral icterus, perioral cyanosis. Mucous membranes are moist. NECK: Soft and supple without masses. No evidence of jugular venous distention or carotid bruits. CHEST: Clear to auscultation and percussion bilaterally. HEART: Regular rate and rhythm, S1-S2, no added sounds. ABDOMEN: Soft, nontender, nondistended without palpable hepatosplenomegaly. EXTREMITIES: Right foot was moderately and diffusely swollen, with scabbing around a previously draining wound at the fibular aspect of the foot. Moderate tenderness over the Achilles tendon, but not the enthesis. No ulceration on the sold of the foot. No MTP or ankle joint tenderness. SKIN: No rash. NEUROLOGIC: Alert and oriented x3. Cranial nerves III through XII are intact. Moving all four limbs, with 5/5 motor. Intact sensation of both feet. Equivocal [place]. Labs Result Diagram: 06/15/16 0450 06/15/16 0450 Medications Medications Current Medications Amlodipine Besylate (Norvasc) 5 mg BID PO Last administered on 06/15/16 08:17 ; Admin Dose 5 MG; Start 06/14/16 at 23:00 Carbamazepine (Tegretol) 200 mg QAM PO Last administered on 06/15/16 08:18; Admin Dose 200 MG; Start 06/15/16 at 09:00 Fluoxetine HCl (Prozac) 40 mg QAM PO Last administered on 06/15/16 08:18; Admin Dose 40 MG; Start 06/15/16 at 09:00 Gabapentin (Neurontin) 300 mg BID PO Last administered on 06/15/16 08:18; Admin Dose 300 MG; Start 06/14/16 at 23:00 Insulin Glargine (Lantus) 15 unit QHS SC ; Start 06/15/16 at 21:00 Lactobacillus Acidophilus/ Rhamnosus (Culturelle) 1 cap BID PO Last administered on 06/15/16 08:18; Admin Dose 1 CAP; Start 06/14/16 at 23:00 Losartan Potassium (Cozaar) 25 mg BID PO Last administered on 06/15/16 08:18; Admin Dose 25 MG; Start 06/15/16 at 09:00 Phenytoin (Dilantin) 300 mg BID PO Last administered on 06/15/16 08:18; Admin Dose 300 MG; Start 06/14/16 at 23:00 Quetiapine Fumarate (Seroquel) 100 mg QHS PO ; Start 06/15/16 at 21:00 Tramadol HCl (Ultram) 50 mg Q6H PRN PO PAIN Last administered on 06/14/16 22: 47; Admin Dose 50 MG; Start 06/14/16 at 23:00 Ondansetron HCl (Zofran Tab) 4 mg Q6H PRN PO NAUSEA AND/OR VOMITING; Start at 23:00 Acetaminophen (Tylenol Tab) 650 mg Q6H PRN PO PAIN LEVEL 1-3 OR FEVER; Start at 23:00 Acetaminophen/ Hydrocodone Bitart ([place] (5/325)) 1 tab Q6H PRN PO PAIN LEVEL 4-10 Last administered on 06/15/16 08:17; Admin Dose 1 TAB; Start 06/14/16 at 23:00 Docusate Sodium (Colace) 100 mg Q12H PRN PO CONSTIPATION; Start 06/14/16 at 23: 00 Zolpidem Tartrate (Ambien) 5 mg QHS PRN PO SLEEP; Start 06/14/16 at 23:00 Famotidine (Pepcid) 20 mg Q12 PO Last administered on 06/15/16 08:18; Admin Dose 20 MG; Start 06/14/16 at 23:00 Enoxaparin Sodium (Lovenox) 40 mg DAILY SC Last administered on 06/15/16 08:20 ; Admin Dose 40 MG; Start 06/15/16 at 09:00 Miscellaneous Information 1 ea NOTE XX ; Start 06/14/16 at 23:45 Glucose (Glutose) 15 gm Q15M PRN PO DECREASED GLUCOSE; Start 06/14/16 at 23:45 Glucose (Glutose) 22.5 gm Q15M PRN PO DECREASED GLUCOSE; Start 06/14/16 at 23: 45 Dextrose (D50w Syringe) 25 ml Q15M PRN IV DECREASED GLUCOSE; Start 06/14/16 at 23:45 Dextrose (D50w Syringe) 50 ml Q15M PRN IV DECREASED GLUCOSE; Start 06/14/16 at 23:45 Glucagon (Glucagen) 1 mg Q15M PRN IM DECREASED GLUCOSE; Start 06/14/16 at 23:45 Glucose (Glutose) 15 gm Q15M PRN BUCCAL DECREASED GLUCOSE; Start 06/14/16 at 23 :45 AZUL FERRARA M.D. Jun 15, 2016 09:05
[2016-06-15 09:39] VITALS: BP 135/78; PULSE 88; RESP 18
[2016-06-15] MEDS: traMADol 50 MG TAB PO PRN (12:10)
[2016-06-15] MEDS: QUETIAPINE 100 MG TAB PO SCH (20:26)
[2016-06-15 20:51] VITALS: BP 164/91; RESP 19
[2016-06-15] MEDS ORDERED: VANCOMYCIN IV PER PHARMACY XX SCH (21:00)
[2016-06-15] MEDS ORDERED: VANCOMYCIN 1 GM in NS 250 ML IVPB SCH (22:00)
[2016-06-15] MEDS: PIPER-TAZO 3.375 GM IV (PMX) 100 ML IVPB SCH (22:04)
[2016-06-15] MEDS: INSULIN GLARGINE [LANtus] 3 ML PEN SC SCH (22:22)
[2016-06-16 05:12] LABS: ADD SCAN DIFF NO
[2016-06-16 05:17] LABS: INR 0.85; PROTIME 11.6 Sec (12.2-14.2); PT RATIO 0.9
[2016-06-16] MEDS: PIPER-TAZO 3.375 GM IV (PMX) 100 ML IVPB SCH ×3 (05:26→22:22)
[2016-06-16] MEDS: HYDROCODONE/APAP (5/325) TAB PO PRN ×3 (05:30→19:27)
[2016-06-16 05:39] LABS: CALCIUM 8.7 mg/dl (8.4-10.2); CREATININE 0.95 mg/dl (0.61-1.24); POTASSIUM 4.2 mmol/L (3.5-5.1)
[2016-06-16 05:53] LABS: BASOPHILS % 0.3 % (0.0-2.0); EOSINOPHILS # 0.1 10^3/ul (0.0-0.5); EOSINOPHILS % 0.7 % (0.0-7.0); HEMOGLOBIN 10.5 g/dl (14.0-18.0); LYMPHOCYTES # 0.7 10^3/ul (0.8-2.9); LYMPHOCYTES % 9.3 % (15.0-51.0); MEAN CORPUSCULAR HEMOGLOBIN 25.7 pg (29.0-33.0); MEAN CORPUSCULAR HGB CONC 31.8 g/dl (32.0-37.0); MEAN CORPUSCULAR VOLUME 80.9 fl (82.0-101.0); MEAN PLATELET VOLUME 9.5 fl (7.4-10.4); MONOCYTE # 0.9 10^3/ul (0.3-0.9); NEUTROPHIL # 5.6 10^3/ul (1.6-7.5); NEUTROPHILS % 77.3 % (39.0-77.0); PLATELET COUNT 520 10^3/UL (140-415); RED BLOOD COUNT 4.08 10^6/ul (4.70-6.10); RED CELL DISTRIBUTION WIDTH 14.7 % (11.5-14.5); WHITE BLOOD COUNT 7.2 10^3/ul (4.8-10.8)
[2016-06-16 07:31] VITALS: BP 153/85; RESP 20
[2016-06-16] MEDS: INSULIN ASPART [NOVOLOG] 3 ML PEN SC SCH ×3 (08:17→17:19)
[2016-06-16] MEDS: FAMOTIDINE 20 MG TAB PO SCH ×2 (08:27→20:55)
[2016-06-16] MEDS: LACTOBACILLUS RHAMNOSUS CAP PO SCH ×2 (08:27→20:56)
[2016-06-16] MEDS: FLUOXETINE 20 MG CAP PO SCH (08:27)
[2016-06-16] MEDS: PHENYTOIN 100 MG CAP PO SCH ×2 (08:28→20:56)
[2016-06-16] MEDS: carBAMAZepine CHEW 100 MG CHEW PO SCH (08:28)
[2016-06-16] MEDS: GABAPENTIN 300 MG CAP PO SCH ×2 (08:28→20:56)
[2016-06-16] MEDS: ENOXAPARIN 40 MG/0.4 ML SYG SC SCH (08:29)
[2016-06-16] MEDS: AMLODIPINE 5 MG TAB PO SCH ×2 (09:06→20:56)
[2016-06-16] MEDS: LOSARTAN 25 MG TAB PO SCH ×2 (09:06→20:59)
--- NOTE | 2016-06-16 10:47 | PN ---
Date/Time of Note Date/Time of Note DATE: 06/16/16 TIME: 10:43 Assessment/Plan VTE Prophylaxis VTE Prophylaxis Intervention: LMWH Lines/Catheters [facility] (from [facility] Peripheral IV Urinary Cath still in place: No Assessment/Plan Assessment/Plan [facility] 1. 51yo man with persistent, progressive osteomyelitis of the right foot. * Podiatry evaluation, may require new surgical debridement. I paged Dr. Cline again this morning, but he may be away for the holiday. Consultation by tomorrow. * Continue Vancomycin and Zosyn in ER * Following blood cultures 2. Diabetes. * Continue Lantus * Accu-Cheks qAC and qHS * No sliding scale. * Zofran for nausea 3. Moderate hypertension this morning (SBP 171) * Continue losartan and amlodipine * Hydralazine 10mg IV q6h PRN for SBP > 160. 4. Alcohol use history, with EtOH level of 208 mg/dl last night. * Withdrawal monitoring 5. Prophylaxis with SCDs for now; famotidine for GI 6. Disposition: Anticipate his living with his daughter after discharge; looking forward to being a grandfather. Luis Ferrara MD PhD [phone] Subjective 24 Hr Interval Summary Free Text/Dictation Continued discomfort in the right foot and Achilles area. But much better appetite, no nausea or other pain (outside his right leg). Exam/Review of Systems Vital Signs Vitals Vital Signs Date Time Temp Pulse Resp B/P Pulse Ox O2 Delivery O2 Flow Rate FiO2 06/16/16 07:31 99.0 88 20 153/85 96 06/14/16 22:55 Room Air Intake and Output 06/15/16 06/15/16 06/16/16 15:00 23:00 07:00 Intake Total 1120 ml 670 ml Output Total 750 ml 800 ml Balance 370 ml -130 ml Exam GENERAL: Friendly, calm, still mildly uncomfortable-appearing. HEENT: Normal pupils, mucous membranes are moist. NECK: Soft and supple without masses. No evidence of jugular venous distention CHEST: Clear to auscultation and percussion bilaterally. HEART: Regular rate and rhythm, S1-S2, no added sounds. ABDOMEN: Soft, nontender, nondistended without palpable hepatosplenomegaly. EXTREMITIES: Right foot was moderately and diffusely swollen, with scabbing around a previously draining wound at the fifth toe. Mild tenderness over the Achilles tendon, but not the enthesis. No ulceration on the sole of the foot. No MTP or ankle joint tenderness. SKIN: No rash. NEUROLOGIC: Alert and oriented x3. Cranial nerves III through XII are intact. Moving all four limbs, with 5/5 motor. Intact sensation of both feet. Results Result Diagram: 06/16/16 0430 06/16/16 0430 Results 24 hrs Laboratory Tests Test 06/15/16 11:46 06/15/16 17:27 06/15/16 22:15 06/16/16 04:30 Bedside Glucose 229 H 171 335 H White Blood Count 7.2 Red Blood Count 4.08 L Hemoglobin 10.5 L Hematocrit 33.0 L Mean Corpuscular Volume 80.9 L Mean Corpuscular Hemoglobin 25.7 L Mean Corpuscular Hemoglobin Concent 31.8 L Red Cell Distribution Width 14.7 H Platelet Count 520 H Mean Platelet Volume 9.5 Neutrophils % 77.3 H Lymphocytes % 9.3 L Monocytes % 12.0 H Eosinophils % 0.7 Basophils % 0.3 Nucleated Red Blood Cells % 0.0 Neutrophils # 5.6 Lymphocytes # 0.7 L Monocytes # 0.9 Eosinophils # 0.1 Basophils # 0.0 Nucleated Red Blood Cells # 0.0 Prothrombin Time 11.6 L Prothrombin Time Ratio 0.9 INR International Normalized Ratio 0.85 Sodium Level 131 L Potassium Level 4.2 Chloride Level 96 L Carbon Dioxide Level 30 Anion Gap 9 # Blood Urea Nitrogen 10 Creatinine 0.95 Glucose Level 174 Calcium Level 8.7 Test 06/16/16 05:32 06/16/16 07:57 Bedside Glucose 138 83 Medications Medications Current Medications Amlodipine Besylate (Norvasc) 5 mg BID PO Last administered on 06/16/16 09:06 ; Admin Dose 5 MG; Start 06/14/16 at 23:00 Carbamazepine (Tegretol) 200 mg QAM PO Last administered on 06/16/16 08:28; Admin Dose 200 MG; Start 06/15/16 at 09:00 Fluoxetine HCl (Prozac) 40 mg QAM PO Last administered on 06/16/16 08:27; Admin Dose 40 MG; Start 06/15/16 at 09:00 Gabapentin (Neurontin) 300 mg BID PO Last administered on 06/16/16 08:28; Admin Dose 300 MG; Start 06/14/16 at 23:00 Insulin Glargine (Lantus) 15 unit QHS SC Last administered on 06/15/16 22:22; Admin Dose 15 UNIT; Start 06/15/16 at 21:00 Lactobacillus Acidophilus/ Rhamnosus (Culturelle) 1 cap BID PO Last administered on 06/16/16 08:27; Admin Dose 1 CAP; Start 06/14/16 at 23:00 Losartan Potassium (Cozaar) 25 mg BID PO Last administered on 06/16/16 09:06; Admin Dose 25 MG; Start 06/15/16 at 09:00 Phenytoin (Dilantin) 300 mg BID PO Last administered on 06/16/16 08:28; Admin Dose 300 MG; Start 06/14/16 at 23:00 Quetiapine Fumarate (Seroquel) 100 mg QHS PO Last administered on 06/15/16 20: 26; Admin Dose 100 MG; Start 06/15/16 at 21:00 Tramadol HCl (Ultram) 50 mg Q6H PRN PO PAIN Last administered on 06/15/16 12: 10; Admin Dose 50 MG; Start 06/14/16 at 23:00 Ondansetron HCl (Zofran Tab) 4 mg Q6H PRN PO NAUSEA AND/OR VOMITING Last administered on 06/15/16 12:10; Admin Dose 4 MG; Start 06/14/16 at 23:00 Acetaminophen (Tylenol Tab) 650 mg Q6H PRN PO PAIN LEVEL 1-3 OR FEVER Last administered on 06/15/16 20:25; Admin Dose 650 MG; Start 06/14/16 at 23:00 Acetaminophen/ Hydrocodone Bitart ([place] (5/325)) 1 tab Q6H PRN PO PAIN LEVEL 4-10 Last administered on 06/16/16 05:30; Admin Dose 1 TAB; Start 06/14/16 at 23:00 Docusate Sodium (Colace) 100 mg Q12H PRN PO CONSTIPATION; Start 06/14/16 at 23: 00 Zolpidem Tartrate (Ambien) 5 mg QHS PRN PO SLEEP; Start 06/14/16 at 23:00 Famotidine (Pepcid) 20 mg Q12 PO Last administered on 06/16/16 08:27; Admin Dose 20 MG; Start 06/14/16 at 23:00 Enoxaparin Sodium (Lovenox) 40 mg DAILY SC Last administered on 06/16/16 08:29 ; Admin Dose 40 MG; Start 06/15/16 at 09:00 Miscellaneous Information 1 ea NOTE XX ; Start 06/14/16 at 23:45 Glucose (Glutose) 15 gm Q15M PRN PO DECREASED GLUCOSE; Start 06/14/16 at 23:45 Glucose (Glutose) 22.5 gm Q15M PRN PO DECREASED GLUCOSE; Start 06/14/16 at 23: 45 Dextrose (D50w Syringe) 25 ml Q15M PRN IV DECREASED GLUCOSE; Start 06/14/16 at 23:45 Dextrose (D50w Syringe) 50 ml Q15M PRN IV DECREASED GLUCOSE; Start 06/14/16 at 23:45 Glucagon (Glucagen) 1 mg Q15M PRN IM DECREASED GLUCOSE; Start 06/14/16 at 23:45 Glucose 15 gm 15 gm Q15M PRN BUCCAL DECREASED GLUCOSE; Start 06/14/16 at 23:45 Piperacillin Sod/ Tazobactam Sod 100 ml @ 200 mls/hr Q8 IVPB Last administered on 06/16/16 05:26; Admin Dose 200 MLS/HR; Start 06/15/16 at 22:00 Vancomycin HCl/ Sodium Chloride (Vancocin/NS) 150 ml @ 75 mls/hr Q12H IVPB ; Start 06/16/16 at 11:00 Miscellaneous Information (*Rx Drug Level Order Reminder*) VANCOMYCIN TROUGH AT 1000 ONCE ONCE XX ; Start 06/17/16 at 10:00; Stop 06/17/16 at 10:01 AZUL FERRARA M.D. Jun 16, 2016 10:47
[2016-06-16 10:58] LABS: ADD UMIC YES; URINE BILIRUBIN (Dip) NEGATIVE (NEGATIVE); URINE BLOOD (Dip) 2+ (NEGATIVE); URINE COLOR LT. YELLOW (YELLOW); URINE KETONES (Dip) NEGATIVE (NEGATIVE); URINE LEUKOCYTE ESTERASE (Dip) NEGATIVE (NEGATIVE); URINE NITRITE (Dip) NEGATIVE (NEGATIVE); URINE TOTAL PROTEIN (Dip) 4+ (NEGATIVE); URINE UROBILINOGEN (Dip) 0.2 E.U./dL (0.1-1.0)
[2016-06-16 11:28] LABS: URINE RBCS 25-50 /HPF (0)
[2016-06-16] MEDS: VANCOMYCIN 750 MG in SOD CHLORIDE 0.9% 150 ML IVPB SCH ×2 (11:57→23:14)
[2016-06-16 16:10] VITALS: BP 150/84; PULSE 90
[2016-06-16] MEDS: traMADol 50 MG TAB PO PRN (17:19)
[2016-06-16 18:25] VITALS: BP 159/89; PULSE 92; RESP 18
[2016-06-16] MEDS ORDERED: ONDANSETRON (ODT) 4 MG TAB ODT PRN (20:00)
[2016-06-16 20:10] VITALS: BP 157/96; PULSE 98; RESP 16
[2016-06-16] MEDS: QUETIAPINE 100 MG TAB PO SCH (20:55)
[2016-06-16] MEDS: INSULIN GLARGINE [LANtus] 3 ML PEN SC SCH (20:58)
[2016-06-17] MEDS: HYDROCODONE/APAP (5/325) TAB PO PRN ×3 (05:41→20:20)
[2016-06-17] MEDS: PIPER-TAZO 3.375 GM IV (PMX) 100 ML IVPB SCH ×3 (05:41→22:04)
[2016-06-17 08:14] VITALS: BP 149/93; RESP 16
[2016-06-17] MEDS: GABAPENTIN 300 MG CAP PO SCH ×2 (08:38→21:25)
[2016-06-17] MEDS: carBAMAZepine CHEW 100 MG CHEW PO SCH (08:38)
[2016-06-17] MEDS: FLUOXETINE 20 MG CAP PO SCH (08:38)
[2016-06-17] MEDS: LOSARTAN 25 MG TAB PO SCH ×2 (08:38→21:35)
[2016-06-17] MEDS: PHENYTOIN 100 MG CAP PO SCH ×2 (08:38→21:25)
[2016-06-17] MEDS: AMLODIPINE 5 MG TAB PO SCH ×2 (08:45→21:35)
[2016-06-17] MEDS: LACTOBACILLUS RHAMNOSUS CAP PO SCH ×2 (08:46→21:25)
[2016-06-17] MEDS: ENOXAPARIN 40 MG/0.4 ML SYG SC SCH (08:50)
[2016-06-17] MEDS: FAMOTIDINE 20 MG TAB PO SCH (08:51)
[2016-06-17] MEDS: INSULIN ASPART [NOVOLOG] 3 ML PEN SC SCH ×3 (08:51→17:50)
[2016-06-17] MEDS: VANCOMYCIN 1 GM in NS 250 ML IVPB SCH ×2 (11:32→23:11)
[2016-06-17] MEDS: MULTIVITAMINS 10 ML, THIAMINE 100 MG, FOLIC ACID 1 MG in SOD CHLORIDE 0.9% 1,000 ML IVPB SCH (14:26)
--- NOTE | 2016-06-17 17:54 | PN ---
Date/Time of Note Date/Time of Note DATE: 06/17/16 TIME: 17:32 Assessment/Plan VTE Prophylaxis VTE Prophylaxis Intervention: LMWH Lines/Catheters IV Catheter Type (from [facility]): [place] Urinary Cath still in place: No Assessment/Plan Assessment/Plan 51yo man with: 1. Persistent, progressive osteomyelitis of the right foot. 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 Continue Vancomycin and Zosyn until seen by ID Follow up blood cultures 2. Diabetes Mellitus: Continue current Insulin regimen and SSI 3. Hypertension: Continue losartan and amlodipine, added Hydralazine 10mg IV q6h PRN for SBP > 160. 4. Alcohol use: patient drinking again, Continue [place] daily and monitor for signs of withdrawal. 5. Bipolar disorder: Continue current meds Prophylaxis: DVT ppx with Lovenox and GI ppx with famotidine Disposition: Vascular surgery eval and MRI foot pending Dr Cline ans Dr Hobbs has seen patient today. Subjective 24 Hr Interval Summary Free Text/Dictation Patient remains stable MRI right foot pending and appreciate recs from Dr Hobbs and Dr Cline Exam/Review of Systems Vital Signs Vitals Vital Signs Date Time Temp Pulse Resp B/P Pulse Ox O2 Delivery O2 Flow Rate FiO2 06/17/16 08:14 98.5 94 16 149/93 98 06/16/16 20:10 Room Air Intake and Output 06/16/16 06/16/16 06/17/16 15:00 23:00 07:00 Intake Total 150 ml 1640 ml 710 ml Output Total 400 ml 700 ml Balance 150 ml 1240 ml 10 ml Exam Constitutional: alert, oriented, well developed Respiratory: clear to auscultation, normal air movement Cardiovascular: nl pulses, regular rate and rhythm Gastrointestinal: non-tender, soft Musculoskeletal: nl gait and stance, other (right foot TTP and draining area lateral forefoot ) Extremities: normal pulses Neurological: ADJ[employer]CT TRAINER II-XII intact, nl mental status, nl speech, nl strength Results Result Diagram: 06/16/16 0430 06/16/16 0430 Results 24 hrs Laboratory Tests Test 06/16/16 20:54 06/17/16 07:56 06/17/16 09:50 06/17/16 11:36 Bedside Glucose 201 167 217 Vancomycin Level Trough 9.4 L Test 06/17/16 12:10 06/17/16 17:11 Erythrocyte Sedimentation Rate 101 H C-Reactive Protein 6.8 H Bedside Glucose 194 Medications Medications Current Medications Amlodipine Besylate (Norvasc) 5 mg BID PO Last administered on 06/17/16 08:45 ; Admin Dose 5 MG; Start 06/14/16 at 23:00 Carbamazepine (Tegretol) 200 mg QAM PO Last administered on 06/17/16 08:38; Admin Dose 200 MG; Start 06/15/16 at 09:00 Fluoxetine HCl (Prozac) 40 mg QAM PO Last administered on 06/17/16 08:38; Admin Dose 40 MG; Start 06/15/16 at 09:00 Gabapentin (Neurontin) 300 mg BID PO Last administered on 06/17/16 08:38; Admin Dose 300 MG; Start 06/14/16 at 23:00 Insulin Glargine (Lantus) 15 unit QHS SC Last administered on 06/16/16 20:58; Admin Dose 15 UNIT; Start 06/15/16 at 21:00 Lactobacillus Acidophilus/ Rhamnosus (Culturelle) 1 cap BID PO Last administered on 06/17/16 08:46; Admin Dose 1 CAP; Start 06/14/16 at 23:00 Losartan Potassium (Cozaar) 25 mg BID PO Last administered on 06/17/16 08:38; Admin Dose 25 MG; Start 06/15/16 at 09:00 Phenytoin (Dilantin) 300 mg BID PO Last administered on 06/17/16 08:38; Admin Dose 300 MG; Start 06/14/16 at 23:00 Quetiapine Fumarate (Seroquel) 100 mg QHS PO Last administered on 06/16/16 20: 55; Admin Dose 100 MG; Start 06/15/16 at 21:00 Tramadol HCl (Ultram) 50 mg Q6H PRN PO PAIN Last administered on 06/16/16 17: 19; Admin Dose 50 MG; Start 06/14/16 at 23:00 Ondansetron HCl (Zofran Tab) 4 mg Q6H PRN PO NAUSEA AND/OR VOMITING Last administered on 06/15/16 12:10; Admin Dose 4 MG; Start 06/14/16 at 23:00 Acetaminophen (Tylenol Tab) 650 mg Q6H PRN PO PAIN LEVEL 1-3 OR FEVER Last administered on 06/15/16 20:25; Admin Dose 650 MG; Start 06/14/16 at 23:00 Acetaminophen/ Hydrocodone Bitart ([place] (5/325)) 1 tab Q6H PRN PO PAIN LEVEL 4-10 Last administered on 06/17/16 13:14; Admin Dose 1 TAB; Start 06/14/16 at 23:00 Docusate Sodium (Colace) 100 mg Q12H PRN PO CONSTIPATION; Start 06/14/16 at 23: 00 Zolpidem Tartrate (Ambien) 5 mg QHS PRN PO SLEEP Last administered on 22:22; Admin Dose 5 MG; Start 06/14/16 at 23:00 Famotidine (Pepcid) 20 mg Q12 PO Last administered on 06/17/16 08:51; Admin Dose 20 MG; Start 06/14/16 at 23:00 Enoxaparin Sodium (Lovenox) 40 mg DAILY SC Last administered on 06/17/16 08:50 ; Admin Dose 40 MG; Start 06/15/16 at 09:00 Miscellaneous Information 1 ea NOTE XX ; Start 06/14/16 at 23:45 Glucose (Glutose) 15 gm Q15M PRN PO DECREASED GLUCOSE; Start 06/14/16 at 23:45 Glucose (Glutose) 22.5 gm Q15M PRN PO DECREASED GLUCOSE; Start 06/14/16 at 23: 45 Dextrose (D50w Syringe) 25 ml Q15M PRN IV DECREASED GLUCOSE; Start 06/14/16 at 23:45 Dextrose (D50w Syringe) 50 ml Q15M PRN IV DECREASED GLUCOSE; Start 06/14/16 at 23:45 Glucagon (Glucagen) 1 mg Q15M PRN IM DECREASED GLUCOSE; Start 06/14/16 at 23:45 Glucose 15 gm 15 gm Q15M PRN BUCCAL DECREASED GLUCOSE; Start 06/14/16 at 23:45 Piperacillin Sod/ Tazobactam Sod (Zosyn 3.375gm/ 100 ml (Pmx)) 100 ml @ 200 mls /hr Q8 IVPB Last administered on 06/17/16 13:53; Admin Dose 200 MLS/HR; Start 06/15/16 at 22:00 Ondansetron HCl 4 mg 4 mg Q4H PRN ODT nausea Last administered on 06/17/16 08: 44; Admin Dose 4 MG; Start 06/16/16 at 20:00 Vancomycin HCl 250 ml @ 125 mls/hr Q12H IVPB Last administered on 06/17/16 11 :32; Admin Dose 125 MLS/HR; Start 06/17/16 at 11:00 Multivitamins/ Thiamine HCl/ Folic Acid/Sodium Chloride (Mvi Adult/ Vitamin B1/ Folic Acid/NS) 1,011.2 ml @ 100 mls/ hr DAILY@09 IVPB Last administered on 14:26; Admin Dose 100 MLS/HR; Start 06/17/16 at 13:00 TI TTAE Jun 17, 2016 17:42 TI TATE Jun 17, 2016 17:42
[2016-06-17] MEDS ORDERED: ONDANSETRON 4 MG INJ IV PRN (18:00)
[2016-06-17] MEDS: PANTOPRAZOLE (EC) 40 MG TAB PO SCH (18:36)
[2016-06-17] MEDS: QUETIAPINE 100 MG TAB PO SCH (21:26)
[2016-06-17 21:27] VITALS: BP 177/98; RESP 18
[2016-06-17] MEDS: INSULIN GLARGINE [LANtus] 3 ML PEN SC SCH (21:30)
[2016-06-17 21:36] VITALS: BP 167/97; PULSE 88; RESP 18
--- NOTE | 2016-06-17 22:36 | CONS ---
DATE OF ADMISSION: 06/16/2016 DATE OF CONSULTATION: 06/17/2016 TYPE OF CONSULTATION: Infectious disease. REASON FOR CONSULTATION: Antibiotic management. HISTORY OF PRESENT ILLNESS: Husam Bedolla is an unfortunate 51-year-old male who was admitted on with infected right foot. The patient has been in the hospital on numerous occasions. He h as persistent problems include: 1. Adult-onset diabetes mellitus. 2. Persistent and progressive osteomyelitis of the right foot. The pain has been worsening and the swelling has been worsening for the last month and he has been d rinking in order to keep the pain down. He has been taking [place] at home as well. There was some d rainage around the fifth toe area, a previous amputation. He also developed some new pain in the Ac hilles tendon area with difficulty walking. He has had some fever and cold sweats. An MRI in 03/22 16 showed osteomyelitis of the fifth metatarsal head and fifth proximal phalanx with associated prom inent cellulitis. He had osteomyelitis of the first metatarsal bone and first proximal phalanx with associated prominent cellulitis, progressive in the interval between studies and prominent tenosyno vitis of the flexor hallux longus tendon. He had a prior diagnosis of osteomyelitis in 07/2015 resu lting in amputation of the right second toe. Dr. William Cline has been following him. He underwent amputation of the fifth toe with incision and drainage of an abscess. Cultures grew out Proteus mi rabilis and corynebacterium species. He was treated with IV Levaquin and was seen by infectious dis ease. We sent him home on Levaquin 750 mg p.o. every day. He is on Lantus insulin. He now present s with similar problems. PAST MEDICAL HISTORY: Operations as outlined. FAMILY HISTORY: Noncontributory. SOCIAL HISTORY: He does smoke. He does drink. I do not know that he abuses drugs. ALLERGIES: NONE TO PENICILLIN, SULFA, OR FOODS. MEDICATIONS: Per chart. REVIEW OF SYSTEMS: As per HPI. PHYSICAL EXAMINATION: GENERAL: The patient is a well-developed, fairly well-nourished male who is alert, responsive, in n o acute distress. VITAL SIGNS: Stable. He is afebrile. SKIN: Without generalized rash. HEENT: Within normal limits. NECK: Supple. LYMPH NODES: None palpable. CHEST: Decreased breath sounds at the bases. HEART: Without murmur or gallop. ABDOMEN: Soft, nontender without organosplenomegaly or masses. EXTREMITIES: Right foot with moderately diffuse swelling. He has also discoloration of the whole r ight foot past the ankle. He has a previous draining wound on the lateral aspect of his foot with s ome tenderness over the Achilles tendon. RECTAL AND GENITAL: Deferred. NEUROLOGICAL: Decreased sensation in both distal extremities. ANCILLARY LABORATORY DATA: On admission, white count was 6.7, H and H 7.4 and 32.6, platelet count 533,000. BUN and creatinine 15/0.97. Glucose random of 243. An MRI was ordered, but not yet done. He has just a foot x-ray from the , which shows bony destruction of the fifth metatarsal, whic h may be related to interval surgery, but aggressive osteomyelitis in the fifth metatarsal region ca nnot be excluded, nondisplaced fracture involving the second metatarsal neck is evident, worsening o f bony destruction involving the metatarsal head of the great toe with increased soft tissue swellin g consistent with progressive osteomyelitis and septic arthritis, surgical resection of the second a nd fifth phalanges again seen, diffuse severe soft tissue swelling is worse. IMPRESSION AND PLAN: Continue vancomycin and Zosyn for the time being. Get cultures if there is an y drainage. Dr. William Cline is to see him in podiatric consultation and an MRI of the right foot i s scheduled. Blood cultures so far negative. I will dictate my findings to Dr. Harkins, Dr. Ferrara, a nd Dr. Cline. Dictated By: JOANNE REYNOSO MD, JD/VICENTE Conf#: [id number] DID#: [id number] CC: AZUL FERRARA MD;*EndCC*
[2016-06-17] MEDS ORDERED: AL HYDROX/MG HYDROX/SIMETH 30 ML CUP PO PRN (23:00)
--- NOTE | 2016-06-17 23:51 | CONS ---
Date/Time of Note Date/Time of Note DATE: 06/17/16 TIME: 23:51 Assessment/Plan Assessment/Plan Problems: (1) Diabetes, polyneuropathy (2) Acquired absence of other toe(s), unspecified side (3) Osteomyelitis of toe of right foot (4) Diabetic foot infection Status: Acute (5) Osteomyelitis Status: Acute (6) Peripheral vascular disease Consultation Date/Type/Reason Admit Date/Time Jun 14, 2016 at 21:38 Date of Consultation: Jun 18, 2016 Type of Consultation: Foot and ankle surgery Reason for Consultation Evaluation of increased pain and swelling in the right foot. Hx of Present Illness Thank you very much for involving me in the care of this patient. As you very well know, this is a 51-year-old male patient with multiple medical problems including diabetes mellitus, multiple foot surgeries in the past, noncompliance, prior history of alcohol abuse with recent alcohol use, depression, anxiety and chronic pain who presents via ambulance to the emergency room with recurrent pain and swelling in his right foot. Patient is very familiar to my practice and I have done multiple surgeries on him in the past. I was consulted for evaluation and treatment. Patient reports significant pain in the right foot and points to the distal lateral aspect of the foot. Constitutional: No chills, No diaphoresis, No disoriented, No febrile, No improved, No no complaints, No other, No poor po, No requiring IVF, No requiring O2 Eyes: No discharge, No no complaints, No other, No pain, No redness, No visual change ENT: No bleeding, No congestion, No discharge, No dysphagia, No no complaints, No other, No pain, No sore throat Respiratory: No cough, No no complaints, No other, No pain, No pleuritic pain, No shortness of breath, No sputum, No wheezing Cardiovascular: No chest pain, No edema, No lightheadedness, No no complaints, No orthopenea, No other, No palpitations, No paroxysmal nocturnal dyspnea Past Medical History Medical History: diabetes, high cholesterol, hypertension, other (Bipolar disease, depression, seizure disorder) Social History Alcohol Use: heavy Smoking Status: Smoker,current status unk Exam/Review of Systems Vital Signs Vitals Vital Signs Date Time Temp Pulse Resp B/P Pulse Ox O2 Delivery O2 Flow Rate FiO2 06/17/16 21:36 98.1 88 18 167/97 98 Room Air Intake and Output 06/16/16 06/16/16 06/17/16 15:00 23:00 07:00 Intake Total 150 ml 1640 ml 710 ml Output Total 400 ml 700 ml Balance 150 ml 1240 ml 10 ml Exam Patient is in no acute distress. There is no bandage on the right foot. Right foot is status post multiple toe amputations with severe deformity of the remaining forefoot. There is significant edema present with no erythema. There is an open wound noted on the distal lateral aspect of the right foot from his previous amputation. There is no actual pus or bleeding noted. There is no malodor present. Erythema is absent today. There is significant edema present with deformity of the right forefoot. Left foot shows no open wound and no sign of infection. Labs and imaging reviewed. X-ray showed bony destruction of the fifth metatarsal since April 03, 2016 x- rays. There is also a nondisplaced fracture involving the second metatarsal neck. There is worsening of bony destruction involving the metatarsal head of the great toe with increased soft tissue swelling concerning of progressive osteomyelitis versus septic arthritis. Patient status post amputation of the second and fifth toes of the right foot. Results Result Diagram: 06/16/16 0430 06/16/16 0430 Results 24 hrs Laboratory Tests Test 06/17/16 07:56 06/17/16 09:50 06/17/16 11:36 06/17/16 12:10 Bedside Glucose 167 217 Vancomycin Level Trough 9.4 L Erythrocyte Sedimentation Rate 101 H C-Reactive Protein 6.8 H Test 06/17/16 17:11 06/17/16 21:28 Bedside Glucose 194 137 Medications Medications Current Medications Amlodipine Besylate (Norvasc) 5 mg BID PO Last administered on 06/17/16 21:35 ; Admin Dose 5 MG; Start 06/14/16 at 23:00 Carbamazepine (Tegretol) 200 mg QAM PO Last administered on 06/17/16 08:38; Admin Dose 200 MG; Start 06/15/16 at 09:00 Fluoxetine HCl (Prozac) 40 mg QAM PO Last administered on 06/17/16 08:38; Admin Dose 40 MG; Start 06/15/16 at 09:00 Gabapentin (Neurontin) 300 mg BID PO Last administered on 06/17/16 21:25; Admin Dose 300 MG; Start 06/14/16 at 23:00 Insulin Glargine (Lantus) 15 unit QHS SC Last administered on 06/17/16 21:30; Admin Dose 15 UNIT; Start 06/15/16 at 21:00 Lactobacillus Acidophilus/ Rhamnosus (Culturelle) 1 cap BID PO Last administered on 06/17/16 21:25; Admin Dose 1 CAP; Start 06/14/16 at 23:00 Losartan Potassium (Cozaar) 25 mg BID PO Last administered on 06/17/16 21:35; Admin Dose 25 MG; Start 06/15/16 at 09:00 Phenytoin (Dilantin) 300 mg BID PO Last administered on 06/17/16 21:25; Admin Dose 300 MG; Start 06/14/16 at 23:00 Quetiapine Fumarate (Seroquel) 100 mg QHS PO Last administered on 06/17/16 21: 26; Admin Dose 100 MG; Start 06/15/16 at 21:00 Tramadol HCl (Ultram) 50 mg Q6H PRN PO PAIN Last administered on 06/16/16 17: 19; Admin Dose 50 MG; Start 06/14/16 at 23:00 Ondansetron HCl (Zofran Tab) 4 mg Q6H PRN PO NAUSEA AND/OR VOMITING Last administered on 06/15/16 12:10; Admin Dose 4 MG; Start 06/14/16 at 23:00 Acetaminophen (Tylenol Tab) 650 mg Q6H PRN PO PAIN LEVEL 1-3 OR FEVER Last administered on 06/15/16 20:25; Admin Dose 650 MG; Start 06/14/16 at 23:00 Acetaminophen/ Hydrocodone Bitart ([place] (5/325)) 1 tab Q6H PRN PO PAIN LEVEL 4-10 Last administered on 06/17/16 20:20; Admin Dose 1 TAB; Start 06/14/16 at 23:00 Docusate Sodium (Colace) 100 mg Q12H PRN PO CONSTIPATION; Start 06/14/16 at 23: 00 Zolpidem Tartrate (Ambien) 5 mg QHS PRN PO SLEEP Last administered on 22:22; Admin Dose 5 MG; Start 06/14/16 at 23:00 Enoxaparin Sodium (Lovenox) 40 mg DAILY SC Last administered on 06/17/16 08:50 ; Admin Dose 40 MG; Start 06/15/16 at 09:00 Miscellaneous Information 1 ea NOTE XX ; Start 06/14/16 at 23:45 Glucose (Glutose) 15 gm Q15M PRN PO DECREASED GLUCOSE; Start 06/14/16 at 23:45 Glucose (Glutose) 22.5 gm Q15M PRN PO DECREASED GLUCOSE; Start 06/14/16 at 23: 45 Dextrose (D50w Syringe) 25 ml Q15M PRN IV DECREASED GLUCOSE; Start 06/14/16 at 23:45 Dextrose (D50w Syringe) 50 ml Q15M PRN IV DECREASED GLUCOSE; Start 06/14/16 at 23:45 Glucagon (Glucagen) 1 mg Q15M PRN IM DECREASED GLUCOSE; Start 06/14/16 at 23:45 Glucose 15 gm 15 gm Q15M PRN BUCCAL DECREASED GLUCOSE; Start 06/14/16 at 23:45 Piperacillin Sod/ Tazobactam Sod 100 ml @ 200 mls/hr Q8 IVPB Last administered on 06/17/16 22:04; Admin Dose 200 MLS/HR; Start 06/15/16 at 22:00 Vancomycin HCl 250 ml @ 125 mls/hr Q12H IVPB Last administered on 06/17/16 23 :11; Admin Dose 125 MLS/HR; Start 06/17/16 at 11:00 Multivitamins/ Thiamine HCl/ Folic Acid/Sodium Chloride (Mvi Adult/ Vitamin B1/ Folic Acid/NS) 1,011.2 ml @ 100 mls/ hr DAILY@09 IVPB Last administered on 14:26; Admin Dose 100 MLS/HR; Start 06/17/16 at 13:00 Ondansetron HCl (Zofran Inj) 4 mg Q4H PRN IV NAUSEA AND/OR VOMITING; Start at 18:00 Pantoprazole (Protonix Tab) 40 mg BID@06,18 PO Last administered on 06/17/16 18:36; Admin Dose 40 MG; Start 06/17/16 at 18:00 Al Hydrox/Mg Hydrox/Simethicone (Mag-Al Plus) 30 ml Q4H PRN PO GASTROINTESTINAL UPSET Last administered on 4/17/17at 23:07; Admin Dose 30 ML; Start 06/17/16 at 23:00 TIMUR FRANKLIN DPM Jun 17, 2016 23:51
[2016-06-18] VITALS: BP 132/90; PULSE 85; RESP 17
--- NOTE | 2016-06-18 02:05 | RADRPT ---
PROCEDURE: MR right foot without contrast CLINICAL INDICATION: Osteomyelitis TECHNIQUE: Axial, coronal and sagittal T1 and STIR images of the right forefoot performed. The luna ent had difficulty holding still during the examination COMPARISON: X-rays of the right foot of 06/14/2016 and MRI of the right foot 07/16/2015 FINDINGS: Areas of abnormal signal with bone destruction with adjacent abnormal signal in the soft tissues con sistent with osteomyelitis are seen in the distal first metatarsal, proximal phalanx of first toe, h ead of the second metatarsal, base of the fourth metatarsal, and the entire fifth metatarsal all roger earing since the 07/16/2015. Septic arthritis is suggested at the first metatarsophalangeal joint. The patient is status post amputation of the second and fifth toes since the 07/16/2015 MRI. There is also fracture of the neck of the second metatarsal appearing since the 07/16/2015 MRI. Diffuse c ellulitis is also seen. The third and fourth toes appear to be held in flexion at the distal interph alangeal joints. IMPRESSION: Multiple areas of osteomyelitis in the right foot with progression compared to the previous MRI as d escribed above. Please see above. RPTAT: HJES .Dominick Harris MD, MD Date Time Electronically viewed and signed by .Dominick Harris MD, on 06/18/2016 02:05 .S/
[2016-06-18 04:56] LABS: ADD SCAN DIFF NO
[2016-06-18 05:31] LABS: CALCIUM 9.2 mg/dl (8.4-10.2); CREATININE 0.98 mg/dl (0.61-1.24); MAGNESIUM 1.4 mg/dl (1.7-2.5); PHOSPHORUS 4.3 mg/dl (2.5-4.9); POTASSIUM 4.5 mmol/L (3.5-5.1)
[2016-06-18 05:32] LABS: ALBUMIN 3.6 g/dl (3.3-4.9); ALBUMIN/GLOBULIN RATIO 0.94; TOTAL PROTEIN 7.4 g/dl (6.1-8.1)
[2016-06-18 05:45] LABS: BASOPHILS % 0.4 % (0.0-2.0); EOSINOPHILS # 0.3 10^3/ul (0.0-0.5); EOSINOPHILS % 6.1 % (0.0-7.0); HEMATOCRIT 30.5 % (42.0-52.0); HEMOGLOBIN 9.9 g/dl (14.0-18.0); LYMPHOCYTES # 1.4 10^3/ul (0.8-2.9); LYMPHOCYTES % 25.5 % (15.0-51.0); MEAN CORPUSCULAR HEMOGLOBIN 26.4 pg (29.0-33.0); MEAN CORPUSCULAR HGB CONC 32.5 g/dl (32.0-37.0); MEAN CORPUSCULAR VOLUME 81.3 fl (82.0-101.0); MEAN PLATELET VOLUME 9.1 fl (7.4-10.4); MONOCYTE # 0.7 10^3/ul (0.3-0.9); MONOCYTES % 12.8 % (0.0-11.0); NEUTROPHILS % 54.7 % (39.0-77.0); PLATELET COUNT 585 10^3/UL (140-415); RED BLOOD COUNT 3.75 10^6/ul (4.70-6.10); RED CELL DISTRIBUTION WIDTH 14.7 % (11.5-14.5); WHITE BLOOD COUNT 5.6 10^3/ul (4.8-10.8)
[2016-06-18] MEDS: PIPER-TAZO 3.375 GM IV (PMX) 100 ML IVPB SCH ×3 (06:07→21:51)
[2016-06-18] MEDS: PANTOPRAZOLE (EC) 40 MG TAB PO SCH ×2 (06:07→17:14)
[2016-06-18 08:00] VITALS: BP 149/103; PULSE 90; RESP 17
[2016-06-18] MEDS: MULTIVITAMINS 10 ML, THIAMINE 100 MG, FOLIC ACID 1 MG in SOD CHLORIDE 0.9% 1,000 ML IVPB SCH (08:07)
[2016-06-18] MEDS: GABAPENTIN 300 MG CAP PO SCH ×2 (08:07→20:37)
[2016-06-18] MEDS: AMLODIPINE 5 MG TAB PO SCH ×2 (08:08→20:46)
[2016-06-18] MEDS: INSULIN ASPART [NOVOLOG] 3 ML PEN SC SCH ×6 (08:08→20:43)
[2016-06-18] MEDS: ENOXAPARIN 40 MG/0.4 ML SYG SC SCH (08:09)
[2016-06-18] MEDS: PHENYTOIN 100 MG CAP PO SCH ×2 (08:09→20:36)
[2016-06-18] MEDS: LACTOBACILLUS RHAMNOSUS CAP PO SCH ×2 (08:09→20:37)
[2016-06-18] MEDS: LOSARTAN 25 MG TAB PO SCH ×2 (08:09→20:37)
[2016-06-18] MEDS: FLUOXETINE 20 MG CAP PO SCH (08:09)
[2016-06-18] MEDS: carBAMAZepine CHEW 100 MG CHEW PO SCH (08:10)
[2016-06-18] MEDS: HYDROCODONE/APAP (5/325) TAB PO PRN ×3 (08:10→20:38)
[2016-06-18] MEDS ORDERED: MAGNESIUM SULFATE 2 GM/50 ML 50 ML IVPB ONE (10:00)
--- NOTE | 2016-06-18 10:33 | PN ---
Date/Time of Note Date/Time of Note DATE: 06/18/16 TIME: 10:21 Assessment/Plan VTE Prophylaxis VTE Prophylaxis Intervention: SCD's Lines/Catheters IV Catheter Type (from Nrs): Peripheral IV Urinary Cath still in place: No Assessment/Plan Assessment/Plan 51 yo man with: 1. Persistent, progressive osteomyelitis of the right foot. ESR/CRP elevated, MRI with progressive osteomyelitis, Vascular to see. Discussed with Dr Cline, his repulping supervisor. Continue Vancomycin and Zosyn. Follow up blood cultures 2. Diabetes Mellitus: Increase Lantus to 18 units and continue pre meal Insulin and SSI 3. Hypertension: Continue losartan and amlodipine, added Hydralazine 10mg IV q6h PRN for SBP > 160. 4. Alcohol use: patient drinking again, Continue Banana bag daily and monitor for signs of withdrawal. 5. Bipolar disorder: Continue current meds Prophylaxis: DVT ppx with Lovenox and GI ppx with famotidine Disposition: Podiatry, ID and Vascular surgery following, f/u further recs today. Subjective 24 Hr Interval Summary Free Text/Dictation Patient remains stable with ongoing right foot pain, MRI right foot done overnight with progression of Osteo. Patient has been seen by ID and vascular now and Podiatry to make recommendations re ? need for amputation Exam/Review of Systems Vital Signs Vitals Vital Signs Date Time Temp Pulse Resp B/P Pulse Ox O2 Delivery O2 Flow Rate FiO2 06/18/16 00:00 98.0 85 17 132/90 97 Room Air Intake and Output 06/17/16 06/17/16 06/18/16 15:00 23:00 07:00 Intake Total 350 ml 2600 ml 2611.2 ml Output Total 850 ml 1800 ml 2100 ml Balance -500 ml 800 ml 511.2 ml Exam Constitutional: alert, oriented, well developed Respiratory: clear to auscultation, normal air movement Cardiovascular: nl pulses, regular rate and rhythm Gastrointestinal: non-tender, soft Musculoskeletal: nl gait and stance, other (right foot pain, edema and drainage of wound on lateral aspect of foot. ) Neurological: SOFTWARE DEVELOPMENT LEADER II-XII intact, nl mental status, nl speech, nl strength Results Result Diagram: 06/18/16 0445 06/18/16 0450 Results 24 hrs Laboratory Tests Test 06/17/16 11:36 06/17/16 12:10 06/17/16 17:11 06/17/16 21:28 Bedside Glucose 217 194 137 Erythrocyte Sedimentation Rate 101 H C-Reactive Protein 6.8 H Test 06/18/16 04:45 06/18/16 04:50 06/18/16 07:48 White Blood Count 5.6 # Red Blood Count 3.75 L Hemoglobin 9.9 L Hematocrit 30.5 L Mean Corpuscular Volume 81.3 L Mean Corpuscular Hemoglobin 26.4 L Mean Corpuscular Hemoglobin Concent 32.5 Red Cell Distribution Width 14.7 H Platelet Count 585 H Mean Platelet Volume 9.1 Neutrophils % 54.7 Lymphocytes % 25.5 Monocytes % 12.8 H Eosinophils % 6.1 Basophils % 0.4 Nucleated Red Blood Cells % 0.0 Neutrophils # 3.0 Lymphocytes # 1.4 Monocytes # 0.7 Eosinophils # 0.3 Basophils # 0.0 Nucleated Red Blood Cells # 0.0 Sodium Level 133 L Potassium Level 4.5 Chloride Level 97 Carbon Dioxide Level 26 Anion Gap 15 Blood Urea Nitrogen 8 Creatinine 0.98 Glucose Level 230 H Calcium Level 9.2 Phosphorus Level 4.3 Magnesium Level 1.4 L Total Bilirubin 0.0 L Direct Bilirubin 0.00 Indirect Bilirubin 0.0 Aspartate Amino Transf (AST/SGOT) 27 Alanine Aminotransferase (ALT/SGPT) 26 Alkaline Phosphatase 255 H Total Protein 7.4 Albumin 3.6 Globulin 3.80 H Albumin/Globulin Ratio 0.94 Bedside Glucose 171 Medications Medications Current Medications Amlodipine Besylate (Norvasc) 5 mg BID PO Last administered on 06/18/16 08:08 ; Admin Dose 5 MG; Start 06/14/16 at 23:00 Carbamazepine (Tegretol) 200 mg QAM PO Last administered on 06/18/16 08:10; Admin Dose 200 MG; Start 06/15/16 at 09:00 Fluoxetine HCl (Prozac) 40 mg QAM PO Last administered on 06/18/16 08:09; Admin Dose 40 MG; Start 06/15/16 at 09:00 Gabapentin (Neurontin) 300 mg BID PO Last administered on 06/18/16 08:07; Admin Dose 300 MG; Start 06/14/16 at 23:00 Insulin Glargine (Lantus) 15 unit QHS SC Last administered on 06/17/16 21:30; Admin Dose 15 UNIT; Start 06/15/16 at 21:00 Lactobacillus Acidophilus/ Rhamnosus (Culturelle) 1 cap BID PO Last administered on 06/18/16 08:09; Admin Dose 1 CAP; Start 06/14/16 at 23:00 Losartan Potassium (Cozaar) 25 mg BID PO Last administered on 06/18/16 08:09; Admin Dose 25 MG; Start 06/15/16 at 09:00 Phenytoin (Dilantin) 300 mg BID PO Last administered on 06/18/16 08:09; Admin Dose 300 MG; Start 06/14/16 at 23:00 Quetiapine Fumarate (Seroquel) 100 mg QHS PO Last administered on 06/17/16 21: 26; Admin Dose 100 MG; Start 06/15/16 at 21:00 Tramadol HCl (Ultram) 50 mg Q6H PRN PO PAIN Last administered on 06/16/16 17: 19; Admin Dose 50 MG; Start 06/14/16 at 23:00 Ondansetron HCl (Zofran Tab) 4 mg Q6H PRN PO NAUSEA AND/OR VOMITING Last administered on 06/15/16 12:10; Admin Dose 4 MG; Start 06/14/16 at 23:00 Acetaminophen (Tylenol Tab) 650 mg Q6H PRN PO PAIN LEVEL 1-3 OR FEVER Last administered on 06/15/16 20:25; Admin Dose 650 MG; Start 06/14/16 at 23:00 Acetaminophen/ Hydrocodone Bitart ([place] (5/325)) 1 tab Q6H PRN PO PAIN LEVEL 4-10 Last administered on 06/18/16 08:10; Admin Dose 1 TAB; Start 06/14/16 at 23:00 Docusate Sodium (Colace) 100 mg Q12H PRN PO CONSTIPATION; Start 06/14/16 at 23: 00 Zolpidem Tartrate (Ambien) 5 mg QHS PRN PO SLEEP Last administered on 22:22; Admin Dose 5 MG; Start 06/14/16 at 23:00 Enoxaparin Sodium (Lovenox) 40 mg DAILY SC Last administered on 06/18/16 08:09 ; Admin Dose 40 MG; Start 06/15/16 at 09:00 Miscellaneous Information 1 ea NOTE XX ; Start 06/14/16 at 23:45 Glucose (Glutose) 15 gm Q15M PRN PO DECREASED GLUCOSE; Start 06/14/16 at 23:45 Glucose (Glutose) 22.5 gm Q15M PRN PO DECREASED GLUCOSE; Start 06/14/16 at 23: 45 Dextrose (D50w Syringe) 25 ml Q15M PRN IV DECREASED GLUCOSE; Start 06/14/16 at 23:45 Dextrose (D50w Syringe) 50 ml Q15M PRN IV DECREASED GLUCOSE; Start 06/14/16 at 23:45 Glucagon (Glucagen) 1 mg Q15M PRN IM DECREASED GLUCOSE; Start 06/14/16 at 23:45 Glucose 15 gm 15 gm Q15M PRN BUCCAL DECREASED GLUCOSE; Start 06/14/16 at 23:45 Piperacillin Sod/ Tazobactam Sod 100 ml @ 200 mls/hr Q8 IVPB Last administered on 06/18/16 06:07; Admin Dose 200 MLS/HR; Start 06/15/16 at 22:00 Vancomycin HCl 250 ml @ 125 mls/hr Q12H IVPB Last administered on 06/17/16 23 :11; Admin Dose 125 MLS/HR; Start 06/17/16 at 11:00 Multivitamins/ Thiamine HCl/ Folic Acid/Sodium Chloride (Mvi Adult/ Vitamin B1/ Folic Acid/NS) 1,011.2 ml @ 100 mls/ hr DAILY@09 IVPB Last administered on 08:07; Admin Dose 100 MLS/HR; Start 06/17/16 at 13:00 Ondansetron HCl (Zofran Inj) 4 mg Q4H PRN IV NAUSEA AND/OR VOMITING; Start at 18:00 Pantoprazole (Protonix Tab) 40 mg BID@06,18 PO Last administered on 06/18/16 06:07; Admin Dose 40 MG; Start 06/17/16 at 18:00 Al Hydrox/Mg Hydrox/ Simethicone 30 ml 30 ml Q4H PRN PO GASTROINTESTINAL UPSET Last administered on 06/17/16 23:07; Admin Dose 30 ML; Start 06/17/16 at 23:00 Magnesium Sulfate (Magnesium Sulfate 2 Gm/50 ml) 50 ml @ 25 mls/hr ONCE ONCE IVPB ; Start 06/18/16 at 10:00; Stop 06/18/16 at 11:59 TI TATE Jun 18, 2016 10:31
[2016-06-18] MEDS: traMADol 50 MG TAB PO PRN ×2 (11:26→18:07)
[2016-06-18] MEDS: VANCOMYCIN 1 GM in NS 250 ML IVPB SCH ×2 (11:29→23:43)
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
--- NOTE | 2016-06-18 15:00 | RADRPT ---
PROCEDURE: US bilateral lower extremity arteries. CLINICAL INDICATION: Bilateral leg pain. Claudication that interferes significantly with the luna ent's lifestyle. TECHNIQUE: Multiple longitudinal and transverse images of the bilateral lower extremity arteries w ere obtained with couch scale, pulsed Doppler, and color Doppler imaging. COMPARISON: No prior studies are available for comparison. FINDINGS: Right FLEXOGRAPHIC PRESS OPERATOR:74 cm/sec PSFA:68 cm/sec MSFA:84 cm/sec DSFA:71 cm/sec POP:74 cm/sec CIGAR PACKER:131 cm/sec DPA:43 cm/sec Left FLEXOGRAPHIC PRESS OPERATOR:77 cm/sec PSFA:54 cm/sec MSFA:70 cm/sec DSFA:54 cm/sec POP:42 cm/sec CIGAR PACKER:49 cm/sec DPA:31 cm/sec The right ankle-brachial index is 1.2 and the left ankle-brachial index is 1.2. On the right side, there is normal triphasic flow throughout the femoral and popliteal systems. Bip hasic flow is present in the calf arteries. On the left side, there is normal triphasic flow throughout. IMPRESSION: 1. Biphasic flow in the right calf arteries which may indicate significant stenosis. 2. Otherwise normal bilateral lower extremity arterial Doppler. RPTAT: QQ .Jus Moseley MD, MD Date Time Electronically viewed and signed by .Jus Moseley MD, MD on 06/18/2016 15:00 .R/
--- NOTE | 2016-06-18 18:16 | PN ---
DATE: 06/18/2016 SUBJECTIVE: The patient is alert, sitting in bed, looks comfortable. No fevers. T-max 99.5 yesterday. WBC 5.6, no shift, no bands. BUN 8, creatinine 0.98. MICROBIOLOGY: Blood cultures negative. DIAGNOSTICS: MRI of his right foot revealed multiple areas of osteomyelitis with significant progre ssion. ANTIMICROBIALS: The patient is also on: 1. Vancomycin. 2. Zosyn. PHYSICAL EXAMINATION: GENERAL: Well-developed middle-aged man who is alert, in no distress. HEENT: Head atraumatic, normocephalic. Sclerae anicteric. Buccal mucosa pink. NECK: Supple. Trachea midline. CHEST: Rise symmetrical. Breath sounds clear. HEART: S1, S2. ABDOMEN: Soft. Bowel tones present. EXTREMITIES: Right lower extremity edema and erythema. ASSESSMENT: 1. Right foot acute on chronic osteomyelitis, failed antibiotics. 2. Diabetes. 3. Hypertension. 4. Ethyl alcohol use and bipolar disorder. PLAN: The patient remains stable. He is being followed by vascular and podiatry teams. We will co ntinue him on current antimicrobials and follow their recommendations. Dictated By: GABBY HERRERA CARTRIDGE ASSEMBLER for JOANNE RUVALCABA/VICENTE Conf#: [id number] DID#: [id number]
[2016-06-18] MEDS: QUETIAPINE 100 MG TAB PO SCH (20:37)
[2016-06-18] MEDS: INSULIN GLARGINE [LANtus] 3 ML PEN SC SCH (20:44)
[2016-06-18 21:27] VITALS: BP 150/88; RESP 18
[2016-06-18 22:00] VITALS: BP 142/75
[2016-06-18 22:10] VITALS: BP 140/73
[2016-06-19] MEDS: ACCU-CHEK XX SCH (02:00)
[2016-06-19] MEDS: HYDROCODONE/APAP (5/325) TAB PO PRN ×3 (05:19→21:17)
[2016-06-19] MEDS: PIPER-TAZO 3.375 GM IV (PMX) 100 ML IVPB SCH ×3 (05:20→21:12)
[2016-06-19] MEDS: PANTOPRAZOLE (EC) 40 MG TAB PO SCH ×2 (05:32→17:30)
[2016-06-19 05:42] LABS: ADD SCAN DIFF NO
[2016-06-19 05:51] LABS: BASOPHILS % 0.8 % (0.0-2.0); EOSINOPHILS # 0.3 10^3/ul (0.0-0.5); EOSINOPHILS % 5.3 % (0.0-7.0); HEMATOCRIT 31.9 % (42.0-52.0); HEMOGLOBIN 10.3 g/dl (14.0-18.0); LYMPHOCYTES # 1.3 10^3/ul (0.8-2.9); LYMPHOCYTES % 27.8 % (15.0-51.0); MEAN CORPUSCULAR HEMOGLOBIN 26.1 pg (29.0-33.0); MEAN CORPUSCULAR HGB CONC 32.3 g/dl (32.0-37.0); MEAN PLATELET VOLUME 8.8 fl (7.4-10.4); MONOCYTE # 0.4 10^3/ul (0.3-0.9); MONOCYTES % 9.3 % (0.0-11.0); NEUTROPHIL # 2.6 10^3/ul (1.6-7.5); NEUTROPHILS % 56.2 % (39.0-77.0); PLATELET COUNT 598 10^3/UL (140-415); RED BLOOD COUNT 3.94 10^6/ul (4.70-6.10); RED CELL DISTRIBUTION WIDTH 14.6 % (11.5-14.5); WHITE BLOOD COUNT 4.7 10^3/ul (4.8-10.8)
[2016-06-19 06:01] LABS: MAGNESIUM 1.7 mg/dl (1.7-2.5); PHOSPHORUS 5.1 mg/dl (2.5-4.9)
[2016-06-19 06:01] LABS: POTASSIUM 4.5 mmol/L (3.5-5.1)
[2016-06-19 06:04] LABS: CREATININE 0.82 mg/dl (0.61-1.24)
[2016-06-19 06:05] LABS: CALCIUM 9.2 mg/dl (8.4-10.2)
[2016-06-19 07:20] VITALS: BP 117/69; RESP 16
[2016-06-19] MEDS: INSULIN ASPART [NOVOLOG] 3 ML PEN SC SCH ×7 (07:53→21:00)
[2016-06-19] MEDS: GABAPENTIN 300 MG CAP PO SCH ×2 (08:35→21:11)
[2016-06-19] MEDS: FLUOXETINE 20 MG CAP PO SCH (08:35)
[2016-06-19] MEDS: AMLODIPINE 5 MG TAB PO SCH ×2 (08:35→21:11)
[2016-06-19] MEDS: carBAMAZepine CHEW 100 MG CHEW PO SCH (08:35)
[2016-06-19] MEDS: LACTOBACILLUS RHAMNOSUS CAP PO SCH ×2 (08:36→21:11)
[2016-06-19] MEDS: PHENYTOIN 100 MG CAP PO SCH ×2 (08:36→21:11)
[2016-06-19] MEDS: LOSARTAN 25 MG TAB PO SCH ×2 (08:36→21:11)
[2016-06-19] MEDS: ENOXAPARIN 40 MG/0.4 ML SYG SC SCH (08:37)
[2016-06-19] MEDS: MULTIVITAMINS 10 ML, THIAMINE 100 MG, FOLIC ACID 1 MG in SOD CHLORIDE 0.9% 1,000 ML IVPB SCH (08:41)
--- NOTE | 2016-06-19 09:31 | PN ---
Date/Time of Note Date/Time of Note DATE: 06/19/16 TIME: 09:26 Assessment/Plan VTE Prophylaxis VTE Prophylaxis Intervention: SCD's Lines/Catheters IV Catheter Type (from Nrs): Peripheral IV Urinary Cath still in place: No Assessment/Plan Assessment/Plan 51 yo man with: 1. Persistent, progressive osteomyelitis of the right foot. ESR/CRP elevated, MRI with progressive osteomyelitis. Appreciate ID recs, needs plan of care from Dr Cline, Podiatry, Vascular seeing patient too Continue Vancomycin and Zosyn. Blood cultures NGTD 2. Diabetes Mellitus: Increase Lantus to 18 units and continue pre meal Insulin and SSI 3. Hypertension: Continue losartan and amlodipine, added Hydralazine 10mg IV q6h PRN for SBP > 160. 4. Alcohol use: patient drinking again, continue Banana bag daily and so far no signs of withdrawal. 5. Bipolar disorder: Continue current meds Prophylaxis: DVT ppx with Lovenox and GI ppx with famotidine Disposition: Podiatry, ID and Vascular surgery following, f/u further recs today from Podiatry . Subjective 24 Hr Interval Summary Free Text/Dictation Patient remains stable No further complaints, awaiting plan of care from Podiatry as patient likely to need partial amputation right foot? Exam/Review of Systems Vital Signs Vitals Vital Signs Date Time Temp Pulse Resp B/P Pulse Ox O2 Delivery O2 Flow Rate FiO2 06/19/16 07:20 98.5 89 16 117/69 98 06/18/16 08:00 Room Air Intake and Output 06/18/16 06/18/16 06/19/16 15:00 23:00 07:00 Intake Total 300 ml 2900 ml 1561.2 ml Output Total 1300 ml 1000 ml Balance 300 ml 1600 ml 561.2 ml Exam Constitutional: alert, oriented, well developed Respiratory: clear to auscultation, normal air movement Cardiovascular: nl pulses, regular rate and rhythm Gastrointestinal: non-tender, soft Musculoskeletal: other (right foot edema, TTP ) Extremities: normal pulses 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, nl mental status, nl speech, nl strength Results Result Diagram: 06/19/16 0455 06/19/16 0455 Results 24 hrs Laboratory Tests Test 06/18/16 11:23 06/18/16 17:13 06/18/16 20:40 06/18/16 22:07 Bedside Glucose 244 H 110 185 Vancomycin Level Trough 12.6 Test 06/19/16 02:05 06/19/16 04:55 06/19/16 05:10 06/19/16 07:50 Bedside Glucose 189 201 White Blood Count 4.7 L Red Blood Count 3.94 L Hemoglobin 10.3 L Hematocrit 31.9 L Mean Corpuscular Volume 81.0 L Mean Corpuscular Hemoglobin 26.1 L Mean Corpuscular Hemoglobin Concent 32.3 Red Cell Distribution Width 14.6 H Platelet Count 598 H Mean Platelet Volume 8.8 Neutrophils % 56.2 Lymphocytes % 27.8 Monocytes % 9.3 Eosinophils % 5.3 Basophils % 0.8 Nucleated Red Blood Cells % 0.0 Neutrophils # 2.6 Lymphocytes # 1.3 Monocytes # 0.4 Eosinophils # 0.3 Basophils # 0.0 Nucleated Red Blood Cells # 0.0 Sodium Level 136 Potassium Level 4.5 Chloride Level 99 Carbon Dioxide Level 25 Anion Gap 17 H Blood Urea Nitrogen 11 Creatinine 0.82 Glucose Level 130 # Calcium Level 9.2 Phosphorus Level 5.1 H Magnesium Level 1.7 Medications Medications Current Medications Amlodipine Besylate (Norvasc) 5 mg BID PO Last administered on 06/19/16 08:35 ; Admin Dose 5 MG; Start 06/14/16 at 23:00 Carbamazepine (Tegretol) 200 mg QAM PO Last administered on 06/19/16 08:35; Admin Dose 200 MG; Start 06/15/16 at 09:00 Fluoxetine HCl (Prozac) 40 mg QAM PO Last administered on 06/19/16 08:35; Admin Dose 40 MG; Start 06/15/16 at 09:00 Gabapentin (Neurontin) 300 mg BID PO Last administered on 06/19/16 08:35; Admin Dose 300 MG; Start 06/14/16 at 23:00 Lactobacillus Acidophilus/ Rhamnosus (Culturelle) 1 cap BID PO Last administered on 06/19/16 08:36; Admin Dose 1 CAP; Start 06/14/16 at 23:00 Losartan Potassium (Cozaar) 25 mg BID PO Last administered on 06/19/16 08:36; Admin Dose 25 MG; Start 06/15/16 at 09:00 Phenytoin (Dilantin) 300 mg BID PO Last administered on 06/19/16 08:36; Admin Dose 300 MG; Start 06/14/16 at 23:00 Quetiapine Fumarate (Seroquel) 100 mg QHS PO Last administered on 06/18/16 20: 37; Admin Dose 100 MG; Start 06/15/16 at 21:00 Tramadol HCl (Ultram) 50 mg Q6H PRN PO PAIN Last administered on 06/18/16 18: 07; Admin Dose 50 MG; Start 06/14/16 at 23:00 Ondansetron HCl (Zofran Tab) 4 mg Q6H PRN PO NAUSEA AND/OR VOMITING Last administered on 06/15/16 12:10; Admin Dose 4 MG; Start 06/14/16 at 23:00 Acetaminophen (Tylenol Tab) 650 mg Q6H PRN PO PAIN LEVEL 1-3 OR FEVER Last administered on 06/15/16 20:25; Admin Dose 650 MG; Start 06/14/16 at 23:00 Acetaminophen/ Hydrocodone Bitart ([place] (5/325)) 1 tab Q6H PRN PO PAIN LEVEL 4-10 Last administered on 06/19/16 05:19; Admin Dose 1 TAB; Start 06/14/16 at 23:00 Docusate Sodium (Colace) 100 mg Q12H PRN PO CONSTIPATION; Start 06/14/16 at 23: 00 Zolpidem Tartrate (Ambien) 5 mg QHS PRN PO SLEEP Last administered on 22:22; Admin Dose 5 MG; Start 06/14/16 at 23:00 Enoxaparin Sodium (Lovenox) 40 mg DAILY SC Last administered on 06/19/16 08:37 ; Admin Dose 40 MG; Start 06/15/16 at 09:00 Miscellaneous Information 1 ea NOTE XX ; Start 06/14/16 at 23:45 Glucose (Glutose) 15 gm Q15M PRN PO DECREASED GLUCOSE; Start 06/14/16 at 23:45 Glucose (Glutose) 22.5 gm Q15M PRN PO DECREASED GLUCOSE; Start 06/14/16 at 23: 45 Dextrose (D50w Syringe) 25 ml Q15M PRN IV DECREASED GLUCOSE; Start 06/14/16 at 23:45 Dextrose (D50w Syringe) 50 ml Q15M PRN IV DECREASED GLUCOSE; Start 06/14/16 at 23:45 Glucagon (Glucagen) 1 mg Q15M PRN IM DECREASED GLUCOSE; Start 06/14/16 at 23:45 Glucose 15 gm 15 gm Q15M PRN BUCCAL DECREASED GLUCOSE; Start 06/14/16 at 23:45 Piperacillin Sod/ Tazobactam Sod 100 ml @ 200 mls/hr Q8 IVPB Last administered on 06/19/16 05:20; Admin Dose 200 MLS/HR; Start 06/15/16 at 22:00 Vancomycin HCl 250 ml @ 125 mls/hr Q12H IVPB Last administered on 06/18/16 23 :43; Admin Dose 125 MLS/HR; Start 06/17/16 at 11:00 Multivitamins/ Thiamine HCl/ Folic Acid/Sodium Chloride (Mvi Adult/ Vitamin B1/ Folic Acid/NS) 1,011.2 ml @ 100 mls/ hr DAILY@09 IVPB Last administered on 08:41; Admin Dose 100 MLS/HR; Start 06/17/16 at 13:00 Ondansetron HCl (Zofran Inj) 4 mg Q4H PRN IV NAUSEA AND/OR VOMITING; Start at 18:00 Pantoprazole (Protonix Tab) 40 mg BID@06,18 PO Last administered on 06/19/16 05:32; Admin Dose 40 MG; Start 06/17/16 at 18:00 Al Hydrox/Mg Hydrox/Simethicone (Mag-Al Plus) 30 ml Q4H PRN PO GASTROINTESTINAL UPSET Last administered on 06/17/16 23:07; Admin Dose 30 ML; Start 06/17/16 at 23:00 Insulin Glargine (Lantus) 18 unit QHS SC Last administered on 06/18/16 20:44; Admin Dose 18 UNIT; Start 06/18/16 at 21:00 Diagnostic Test (Pha) (Accu-Chek) 1 XX ; Start 06/19/16 at 02:00 TI TATE Jun 19, 2016 09:31
[2016-06-19] MEDS: VANCOMYCIN 1 GM in NS 250 ML IVPB SCH ×2 (11:56→23:22)
--- NOTE | 2016-06-19 14:36 | PN ---
Date/Time of Note Date/Time of Note DATE: 06/19/16 TIME: 14:32 Assessment/Plan Lines/Catheters IV Catheter Type (from Rust): Peripheral IV Lomeli in Place (from Rust): No Assessment/Plan Chief Complaint/Hosp Course -Bilateral lower extremity atherosclerosis with right lower extremity diabetic foot infection and nonhealing ulcer: It seems that the patient has recurrent diabetic foot infection with history of 1st and 5th toe osteomyelitis. At the moment, it seems that the patient is being treated with antibiotics. Bilateral lower extremity noninvasive vascular studies some infrainguinal disease with biphasic flow. No further intervention for now. -Will follow wounds closely and if concerning will recommend obtaining an angiogram at that time -Discussed vascular optimization (BP meds, diet, nutrition, exercise, sugar control, antiplatelets, weight loss). -Discussed smoking cessation. -Discussed findings, plan, and management with the patient and he understands. -Thank you for allowing us to partake in the care of your patient. Please call with any questions. Problems: Subjective 24 Hr Interval Summary no new vascular events overnight Exam/Review of Systems Vital Signs Vitals Vital Signs Date Time Temp Pulse Resp B/P Pulse Ox O2 Delivery O2 Flow Rate FiO2 06/19/16 07:20 98.5 89 16 117/69 98 06/18/16 08:00 Room Air Intake and Output 06/18/16 06/18/16 06/19/16 15:00 23:00 07:00 Intake Total 300 ml 2900 ml 1561.2 ml Output Total 1300 ml 1000 ml Balance 300 ml 1600 ml 561.2 ml Exam Free Text/Dictation GENERAL: Alert and oriented x3, CARDIOVASCULAR: S1, S2 present. PULMONARY: Clear to auscultation bilaterally. ABDOMEN: Soft, nontender, nondistended. Bowel sounds positive. EXTREMITIES: Right lower extremity palpable femoral pulse. Faint pedal pulse. Motor, sensory intact. Capillary refill 3 seconds. Second and fifth toe amputation site. Drainage at the fifth toe amputation site. Charcot's foot, enlarged first toe. Left lower extremity palpable femoral pulse, faint pedal pulse. Motor and sensory intact. Cap refill 2 to 3 seconds. Results Result Diagram: 06/19/16 0455 06/19/16 0455 DAQUAN ARAIZA MD Jun 19, 2016 14:36
--- NOTE | 2016-06-19 15:38 | CONS ---
Date/Time of Note Date/Time of Note DATE: 06/19/16 TIME: 15:37 Assessment/Plan Assessment/Plan Chief Complaint/Hosp Course SUBJECTIVE: The patient is alert, sitting in bed, looks comfortable. No fevers. MICROBIOLOGY: Blood cultures negative. DIAGNOSTICS: MRI of his right foot revealed multiple areas of osteomyelitis with significant progression. ANTIMICROBIALS: 1. Vancomycin. 2. Zosyn. PHYSICAL EXAMINATION: GENERAL: Well-developed middle-aged man who is alert, in no distress. HEENT: Head atraumatic, normocephalic. Sclerae anicteric. Buccal mucosa pink. NECK: Supple. Trachea midline. CHEST: Rise symmetrical. Breath sounds clear. HEART: S1, S2. ABDOMEN: Soft. Bowel tones present. EXTREMITIES: Right lower extremity edema and erythema. ASSESSMENT: 1. Right foot acute on chronic osteomyelitis, failed antibiotics. 2. Diabetes. 3. Hypertension. 4. Bipolar disorder 5. Tobacco/ETOH abuse PLAN: The patient remains stable. He is being followed by vascular and podiatry teams. We will continue him on current antimicrobials , may need amputation DW staff Problems: Consultation Date/Type/Reason Admit Date/Time Jun 16, 2016 at 19:52 Initial Consult Date 06/18/16 Type of Consultation: ID Exam/Review of Systems Vital Signs Vitals Vital Signs Date Time Temp Pulse Resp B/P Pulse Ox O2 Delivery O2 Flow Rate FiO2 06/19/16 07:20 98.5 89 16 117/69 98 06/18/16 08:00 Room Air Intake and Output 06/18/16 06/18/16 06/19/16 15:00 23:00 07:00 Intake Total 300 ml 2900 ml 1561.2 ml Output Total 1300 ml 1000 ml Balance 300 ml 1600 ml 561.2 ml Results Result Diagram: 06/19/16 0455 06/19/16 0455 Results 24 hrs Laboratory Tests Test 06/18/16 17:13 06/18/16 20:40 06/18/16 22:07 06/19/16 02:05 Bedside Glucose 110 185 189 Vancomycin Level Trough 12.6 Test 06/19/16 04:55 06/19/16 05:10 06/19/16 07:50 06/19/16 11:53 White Blood Count 4.7 L Red Blood Count 3.94 L Hemoglobin 10.3 L Hematocrit 31.9 L Mean Corpuscular Volume 81.0 L Mean Corpuscular Hemoglobin 26.1 L Mean Corpuscular Hemoglobin Concent 32.3 Red Cell Distribution Width 14.6 H Platelet Count 598 H Mean Platelet Volume 8.8 Neutrophils % 56.2 Lymphocytes % 27.8 Monocytes % 9.3 Eosinophils % 5.3 Basophils % 0.8 Nucleated Red Blood Cells % 0.0 Neutrophils # 2.6 Lymphocytes # 1.3 Monocytes # 0.4 Eosinophils # 0.3 Basophils # 0.0 Nucleated Red Blood Cells # 0.0 Sodium Level 136 Potassium Level 4.5 Chloride Level 99 Carbon Dioxide Level 25 Anion Gap 17 H Blood Urea Nitrogen 11 Creatinine 0.82 Glucose Level 130 # Calcium Level 9.2 Phosphorus Level 5.1 H Magnesium Level 1.7 Bedside Glucose 201 139 Medications Medications Current Medications Amlodipine Besylate (Norvasc) 5 mg BID PO Last administered on 06/19/16 08:35 ; Admin Dose 5 MG; Start 06/14/16 at 23:00 Carbamazepine (Tegretol) 200 mg QAM PO Last administered on 06/19/16 08:35; Admin Dose 200 MG; Start 06/15/16 at 09:00 Fluoxetine HCl (Prozac) 40 mg QAM PO Last administered on 06/19/16 08:35; Admin Dose 40 MG; Start 06/15/16 at 09:00 Gabapentin (Neurontin) 300 mg BID PO Last administered on 06/19/16 08:35; Admin Dose 300 MG; Start 06/14/16 at 23:00 Lactobacillus Acidophilus/ Rhamnosus (Culturelle) 1 cap BID PO Last administered on 06/19/16 08:36; Admin Dose 1 CAP; Start 06/14/16 at 23:00 Losartan Potassium (Cozaar) 25 mg BID PO Last administered on 06/19/16 08:36; Admin Dose 25 MG; Start 06/15/16 at 09:00 Phenytoin (Dilantin) 300 mg BID PO Last administered on 06/19/16 08:36; Admin Dose 300 MG; Start 06/14/16 at 23:00 Quetiapine Fumarate (Seroquel) 100 mg QHS PO Last administered on 06/18/16 20: 37; Admin Dose 100 MG; Start 06/15/16 at 21:00 Tramadol HCl (Ultram) 50 mg Q6H PRN PO PAIN Last administered on 06/18/16 18: 07; Admin Dose 50 MG; Start 06/14/16 at 23:00 Ondansetron HCl (Zofran Tab) 4 mg Q6H PRN PO NAUSEA AND/OR VOMITING Last administered on 06/15/16 12:10; Admin Dose 4 MG; Start 06/14/16 at 23:00 Acetaminophen (Tylenol Tab) 650 mg Q6H PRN PO PAIN LEVEL 1-3 OR FEVER Last administered on 06/15/16 20:25; Admin Dose 650 MG; Start 06/14/16 at 23:00 Acetaminophen/ Hydrocodone Bitart ([place] (5/325)) 1 tab Q6H PRN PO PAIN LEVEL 4-10 Last administered on 06/19/16 12:02; Admin Dose 1 TAB; Start 06/14/16 at 23:00 Docusate Sodium (Colace) 100 mg Q12H PRN PO CONSTIPATION; Start 06/14/16 at 23: 00 Zolpidem Tartrate (Ambien) 5 mg QHS PRN PO SLEEP Last administered on 22:22; Admin Dose 5 MG; Start 06/14/16 at 23:00 Enoxaparin Sodium (Lovenox) 40 mg DAILY SC Last administered on 06/19/16 08:37 ; Admin Dose 40 MG; Start 06/15/16 at 09:00 Miscellaneous Information 1 ea NOTE XX ; Start 06/14/16 at 23:45 Glucose (Glutose) 15 gm Q15M PRN PO DECREASED GLUCOSE; Start 06/14/16 at 23:45 Glucose (Glutose) 22.5 gm Q15M PRN PO DECREASED GLUCOSE; Start 06/14/16 at 23: 45 Dextrose (D50w Syringe) 25 ml Q15M PRN IV DECREASED GLUCOSE; Start 06/14/16 at 23:45 Dextrose (D50w Syringe) 50 ml Q15M PRN IV DECREASED GLUCOSE; Start 06/14/16 at 23:45 Glucagon (Glucagen) 1 mg Q15M PRN IM DECREASED GLUCOSE; Start 06/14/16 at 23:45 Glucose 15 gm 15 gm Q15M PRN BUCCAL DECREASED GLUCOSE; Start 06/14/16 at 23:45 Piperacillin Sod/ Tazobactam Sod 100 ml @ 200 mls/hr Q8 IVPB Last administered on 06/19/16 14:38; Admin Dose 200 MLS/HR; Start 06/15/16 at 22:00 Vancomycin HCl 250 ml @ 125 mls/hr Q12H IVPB Last administered on 06/19/16 11 :56; Admin Dose 125 MLS/HR; Start 06/17/16 at 11:00 Multivitamins/ Thiamine HCl/ Folic Acid/Sodium Chloride (Mvi Adult/ Vitamin B1/ Folic Acid/NS) 1,011.2 ml @ 100 mls/ hr DAILY@09 IVPB Last administered on 08:41; Admin Dose 100 MLS/HR; Start 06/17/16 at 13:00 Ondansetron HCl (Zofran Inj) 4 mg Q4H PRN IV NAUSEA AND/OR VOMITING; Start at 18:00 Pantoprazole (Protonix Tab) 40 mg BID@06,18 PO Last administered on 06/19/16 05:32; Admin Dose 40 MG; Start 06/17/16 at 18:00 Al Hydrox/Mg Hydrox/Simethicone (Mag-Al Plus) 30 ml Q4H PRN PO GASTROINTESTINAL UPSET Last administered on 06/17/16 23:07; Admin Dose 30 ML; Start 06/17/16 at 23:00 Insulin Glargine (Lantus) 18 unit QHS SC Last administered on 06/18/16 20:44; Admin Dose 18 UNIT; Start 06/18/16 at 21:00 Diagnostic Test (Pha) (Accu-Chek) 1 ea 02 XX ; Start 06/19/16 at 02:00 GABBY HERRERA NP Jun 19, 2016 15:38
[2016-06-19 20:54] VITALS: BP 147/79; RESP 22
[2016-06-19] MEDS: INSULIN GLARGINE [LANtus] 3 ML PEN SC SCH (21:10)
[2016-06-19] MEDS: QUETIAPINE 100 MG TAB PO SCH (21:10)
[2016-06-19] MEDS ORDERED: IOHEXOL 100 ML ONE (21:56)
[2016-06-19] MEDS ORDERED: IOHEXOL 350MG/ML 50 ML BTL ONE (21:56)
[2016-06-19] MEDS ORDERED: SOD CHLORIDE 0.9% 100 ML ONE (21:56)
[2016-06-20] MEDS: ACCU-CHEK XX SCH (01:32)
[2016-06-20 05:51] LABS: CALCIUM 9.5 mg/dl (8.4-10.2); CREATININE 0.88 mg/dl (0.61-1.24); POTASSIUM 4.3 mmol/L (3.5-5.1)
[2016-06-20] MEDS: PANTOPRAZOLE (EC) 40 MG TAB PO SCH ×2 (06:17→18:25)
[2016-06-20] MEDS: PIPER-TAZO 3.375 GM IV (PMX) 100 ML IVPB SCH ×2 (06:17→14:41)
[2016-06-20 07:30] VITALS: BP 158/84; RESP 18
[2016-06-20] MEDS: INSULIN ASPART [NOVOLOG] 3 ML PEN SC SCH ×8 (07:35→20:24)
--- NOTE | 2016-06-20 07:40 | RADRPT ---
PROCEDURE: CT angiogram of the abdomen and pelvis with bilateral lower extremity runoff and with 3 -D reconstructions CLINICAL INDICATION: ulcer TECHNIQUE: CT angiogram of the abdomen and pelvis was performed on a multislice CT scanner . The patient was scanned after administration of intravenous contrast. Sagittal and coronal reformatted images were obtained from the axial source images. 3D MIP reformatted images were also created from the axial source images. DLP 1073.10 mGycm CTDI vol 20.54, 8.09 mGy COMPARISON: Duplex sonogram of the lower extremity arteries from 06/18/2016, MRI of the right foot from 06/17/2016 FINDINGS: ANGIOGRAM FINDINGS: There is no acute dissection or aneurysm of the abdominal aorta. The splenic artery and left gastric artery are replaced off the aorta. The common hepatic artery is replaced off the SMA. There is an accessory left hepatic artery off the left gastric artery. The SMA and LESLY are widely patent. There are single renal arteries bilaterally which are widely patent. Common, internal and external iliac arteries are patent bilaterally. RIGHT LOWER EXTREMITY: The COMPRESS MACHINE OPERATOR, SFA, and profunda arteries are widely patent. The popliteal artery is widely patent. Infrapopliteal vessels are widely patent and there is good three-vessel runoff to the level of the a nkle. LEFT LOWER EXTREMITY: The COMPRESS MACHINE OPERATOR, SFA, and profunda arteries are widely patent. The popliteal artery is widely patent. Infrapopliteal vessels are widely patent and there is good three-vessel runoff to the level of the a nkle. ANCILLARY FINDINGS: There is a punctate calcified granuloma in the right lobe of the liver. The bladder is markedly distended and extends up into the midabdomen. The prostate does not appear t o be enlarged. There is a tiny fat - containing left inguinal hernia. There is deformity of the mid right femur and tibial plateau with evidence of a prior right knee rep lacement. Amputation of the phalanges of the second and fifth digits of the right foot is noted as well as mar ked osteolytic destruction of multiple metatarsals consistent with osteomyelitis which is better roger reciated on the recent MRI of the right foot. IMPRESSION: The arteries of the lower extremities are widely patent with good three-vessel runoff to the level o f the ankles. Markedly distended bladder which extends up into the mid abdomen. A Lomeli catheter balloon can be p laced to decompress the bladder, as indicated. Deformity of the phalanges of the second and fifth digits of the right foot is noted as well as oste olytic destruction of multiple metatarsals consistent with osteomyelitis which is better appreciated on the recent MRI of the right foot from 06/17/2016. RPTAT: EE Physician Essence Date Time Electronically viewed and signed by Blair Sargent Physician on 06/20/2016 07:40 RA/
[2016-06-20] MEDS: PHENYTOIN 100 MG CAP PO SCH ×2 (08:01→20:12)
[2016-06-20] MEDS: ENOXAPARIN 40 MG/0.4 ML SYG SC SCH (08:01)
[2016-06-20] MEDS: LACTOBACILLUS RHAMNOSUS CAP PO SCH ×2 (08:02→20:12)
[2016-06-20] MEDS: LOSARTAN 25 MG TAB PO SCH ×2 (08:02→20:13)
[2016-06-20] MEDS: AMLODIPINE 5 MG TAB PO SCH ×2 (08:02→20:13)
[2016-06-20] MEDS: FLUOXETINE 20 MG CAP PO SCH (08:02)
[2016-06-20] MEDS: carBAMAZepine CHEW 100 MG CHEW PO SCH (08:03)
[2016-06-20] MEDS: HYDROCODONE/APAP (5/325) TAB PO PRN ×3 (08:03→20:24)
[2016-06-20] MEDS: GABAPENTIN 300 MG CAP PO SCH ×2 (08:03→20:12)
[2016-06-20] MEDS: MULTIVITAMINS 10 ML, THIAMINE 100 MG, FOLIC ACID 1 MG in SOD CHLORIDE 0.9% 1,000 ML IVPB SCH (10:30)
[2016-06-20] MEDS: VANCOMYCIN 1 GM in NS 250 ML IVPB SCH ×2 (11:42→23:25)
--- NOTE | 2016-06-20 12:54 | PN ---
Date/Time of Note Date/Time of Note DATE: 06/20/16 TIME: 12:43 Assessment/Plan VTE Prophylaxis VTE Prophylaxis Intervention: SCD's Lines/Catheters IV Catheter Type (from Nrsg): Saline Lock Urinary Cath still in place: No Assessment/Plan Assessment/Plan 51 yo man with: 1. Persistent, progressive osteomyelitis of the right foot. ESR/CRP elevated, MRI with progressive osteomyelitis. Appreciate ID recs, Discussed with Dr Zuniga this AM who is covering for Dr Cline and will need to plan for elective TMA right foot likely in the next 1 to 2 weeks and for now continue abx and d/c home Will discuss with ID suitable regimen, patient agreeable Blood cultures NGTD 2. Diabetes Mellitus: Continue Lantus, pre meal Insulin and SSI 3. Hypertension: Continue losartan and amlodipine, added Hydralazine 10mg IV q6h PRN for SBP > 160. 4. Alcohol use: patient drinking again, d/c banana bag and start MVI/Thiamine/ Folate po. 5. Bipolar disorder: Continue current meds Prophylaxis: DVT ppx with Lovenox and GI ppx with famotidine Disposition: Podiatry, ID and Vascular surgery following, f/u further recs today from ID for d/c planning home in 24 hrs. Subjective 24 Hr Interval Summary Free Text/Dictation Patient stable and ambulating all the time in the [address] way Pain control with Magdalena on Abx and d/c plan home in 24 hrs with outpatient/elective TMA in 1 to 2 weeks with Vascular and or Podiatry. Exam/Review of Systems Vital Signs Vitals Vital Signs Date Time Temp Pulse Resp B/P Pulse Ox O2 Delivery O2 Flow Rate FiO2 06/20/16 07:30 97.6 94 18 158/84 98 06/18/16 08:00 Room Air Intake and Output 06/19/16 06/19/16 06/20/16 15:00 23:00 07:00 Intake Total 350 ml 980 ml 1050 ml Output Total 1900 ml Balance 350 ml 980 ml -850 ml Exam Constitutional: alert, oriented, well developed Respiratory: clear to auscultation, normal air movement Cardiovascular: nl pulses, regular rate and rhythm Gastrointestinal: non-tender, soft Musculoskeletal: other (right foot pain, swelling stable no progression ) Extremities: normal pulses, other (no edema, clubbign or cyanosis ) Neurological: BLENDER II-XII intact, nl mental status, nl speech, nl strength Results Result Diagram: 06/19/16 0455 06/20/16 0500 Results 24 hrs Laboratory Tests Test 06/19/16 17:29 06/19/16 21:08 06/20/16 05:00 06/20/16 07:56 Bedside Glucose 233 H 95 67 L Sodium Level 137 Potassium Level 4.3 Chloride Level 103 Carbon Dioxide Level 28 Anion Gap 10 # Blood Urea Nitrogen 12 Creatinine 0.88 Glucose Level 58 #L Calcium Level 9.5 Test 06/20/16 08:18 06/20/16 08:51 06/20/16 11:23 Bedside Glucose 102 203 299 H Medications Medications Current Medications Amlodipine Besylate (Norvasc) 5 mg BID PO Last administered on 06/20/16 08:02 ; Admin Dose 5 MG; Start 06/14/16 at 23:00 Carbamazepine (Tegretol) 200 mg QAM PO Last administered on 06/20/16 08:03; Admin Dose 200 MG; Start 06/15/16 at 09:00 Fluoxetine HCl (Prozac) 40 mg QAM PO Last administered on 06/20/16 08:02; Admin Dose 40 MG; Start 06/15/16 at 09:00 Gabapentin (Neurontin) 300 mg BID PO Last administered on 06/20/16 08:03; Admin Dose 300 MG; Start 06/14/16 at 23:00 Lactobacillus Acidophilus/ Rhamnosus (Culturelle) 1 cap BID PO Last administered on 06/20/16 08:02; Admin Dose 1 CAP; Start 06/14/16 at 23:00 Losartan Potassium (Cozaar) 25 mg BID PO Last administered on 06/20/16 08:02; Admin Dose 25 MG; Start 06/15/16 at 09:00 Phenytoin (Dilantin) 300 mg BID PO Last administered on 06/20/16 08:01; Admin Dose 300 MG; Start 06/14/16 at 23:00 Quetiapine Fumarate (Seroquel) 100 mg QHS PO Last administered on 06/19/16 21: 10; Admin Dose 100 MG; Start 06/15/16 at 21:00 Tramadol HCl (Ultram) 50 mg Q6H PRN PO PAIN Last administered on 06/18/16 18: 07; Admin Dose 50 MG; Start 06/14/16 at 23:00 Ondansetron HCl (Zofran Tab) 4 mg Q6H PRN PO NAUSEA AND/OR VOMITING Last administered on 06/15/16 12:10; Admin Dose 4 MG; Start 06/14/16 at 23:00 Acetaminophen (Tylenol Tab) 650 mg Q6H PRN PO PAIN LEVEL 1-3 OR FEVER Last administered on 06/15/16 20:25; Admin Dose 650 MG; Start 06/14/16 at 23:00 Acetaminophen/ Hydrocodone Bitart ([place] (5/325)) 1 tab Q6H PRN PO MODERATE PAIN LEVEL 4-6 Last administered on 06/20/16 08:03; Admin Dose 1 TAB; Start at 23:00 Docusate Sodium (Colace) 100 mg Q12H PRN PO CONSTIPATION; Start 06/14/16 at 23: 00 Zolpidem Tartrate (Ambien) 5 mg QHS PRN PO SLEEP Last administered on 22:22; Admin Dose 5 MG; Start 06/14/16 at 23:00 Enoxaparin Sodium (Lovenox) 40 mg DAILY SC Last administered on 06/20/16 08:01 ; Admin Dose 40 MG; Start 06/15/16 at 09:00 Miscellaneous Information 1 ea NOTE XX ; Start 06/14/16 at 23:45 Glucose (Glutose) 15 gm Q15M PRN PO DECREASED GLUCOSE; Start 06/14/16 at 23:45 Glucose (Glutose) 22.5 gm Q15M PRN PO DECREASED GLUCOSE; Start 06/14/16 at 23: 45 Dextrose (D50w Syringe) 25 ml Q15M PRN IV DECREASED GLUCOSE; Start 06/14/16 at 23:45 Dextrose (D50w Syringe) 50 ml Q15M PRN IV DECREASED GLUCOSE; Start 06/14/16 at 23:45 Glucagon (Glucagen) 1 mg Q15M PRN IM DECREASED GLUCOSE; Start 06/14/16 at 23:45 Glucose 15 gm 15 gm Q15M PRN BUCCAL DECREASED GLUCOSE; Start 06/14/16 at 23:45 Piperacillin Sod/ Tazobactam Sod 100 ml @ 200 mls/hr Q8 IVPB Last administered on 06/20/16 06:17; Admin Dose 200 MLS/HR; Start 06/15/16 at 22:00 Vancomycin HCl 250 ml @ 125 mls/hr Q12H IVPB Last administered on 06/20/16 11 :42; Admin Dose 125 MLS/HR; Start 06/17/16 at 11:00 Multivitamins/ Thiamine HCl/ Folic Acid/Sodium Chloride (Mvi Adult/ Vitamin B1/ Folic Acid/NS) 1,011.2 ml @ 100 mls/ hr DAILY@09 IVPB Last administered on 10:30; Admin Dose 100 MLS/HR; Start 06/17/16 at 13:00 Ondansetron HCl (Zofran Inj) 4 mg Q4H PRN IV NAUSEA AND/OR VOMITING; Start at 18:00 Pantoprazole (Protonix Tab) 40 mg BID@06,18 PO Last administered on 06/20/16 06:17; Admin Dose 40 MG; Start 06/17/16 at 18:00 Al Hydrox/Mg Hydrox/Simethicone (Mag-Al Plus) 30 ml Q4H PRN PO GASTROINTESTINAL UPSET Last administered on 06/17/16 23:07; Admin Dose 30 ML; Start 06/17/16 at 23:00 Insulin Glargine (Lantus) 18 unit QHS SC Last administered on 06/19/16 21:10; Admin Dose 18 UNIT; Start 06/18/16 at 21:00 Diagnostic Test (Pha) (Accu-Chek) 1 ea 02 XX ; Start 06/19/16 at 02:00 Acetaminophen/ Hydrocodone Bitart ([place] (5/325)) 2 tab Q6H PRN PO SEVERE PAIN LEVEL 7-10; Start 06/20/16 at 11:30 TI TATE Jun 20, 2016 12:54
[2016-06-20] MEDS ORDERED: LIDOCAINE 1% (MPF) 5 ML VIAL SC ONE (14:30)
--- NOTE | 2016-06-20 15:02 | CONS ---
Date/Time of Note Date/Time of Note DATE: 06/20/16 TIME: 15:01 Assessment/Plan Assessment/Plan Chief Complaint/Hosp Course SUBJECTIVE: The patient is alert, ambulating in hallway, no fevers MICROBIOLOGY: Blood cultures negative. DIAGNOSTICS: MRI of his right foot revealed multiple areas of osteomyelitis with significant progression. ANTIMICROBIALS: 1. Vancomycin. 2. Zosyn. PHYSICAL EXAMINATION: GENERAL: Well-developed middle-aged man who is alert, in no distress. HEENT: Head atraumatic, normocephalic. Sclerae anicteric. Buccal mucosa pink. NECK: Supple. Trachea midline. CHEST: Rise symmetrical. Breath sounds clear. HEART: S1, S2. ABDOMEN: Soft. Bowel tones present. EXTREMITIES: Right lower extremity edema and erythema. ASSESSMENT: 1. Right foot acute on chronic osteomyelitis, failed antibiotics. 2. Diabetes. 3. Hypertension. 4. Bipolar disorder 5. Tobacco/ETOH abuse PLAN: The patient remains stable. Possibly will need amputation, will change Zosyn to Levaquin, continue Colleen, f/u vascular and podiatry rec-s [facility] staff Problems: Consultation Date/Type/Reason Admit Date/Time Jun 16, 2016 at 19:52 Initial Consult Date 06/18/16 Type of Consultation: ID Exam/Review of Systems Vital Signs Vitals Vital Signs Date Time Temp Pulse Resp B/P Pulse Ox O2 Delivery O2 Flow Rate FiO2 06/20/16 07:30 97.6 94 18 158/84 98 06/18/16 08:00 Room Air Intake and Output 06/19/16 06/19/16 06/20/16 15:00 23:00 07:00 Intake Total 350 ml 980 ml 1050 ml Output Total 1900 ml Balance 350 ml 980 ml -850 ml Results Result Diagram: 06/19/16 0455 06/20/16 0500 Results 24 hrs Laboratory Tests Test 06/19/16 17:29 06/19/16 21:08 06/20/16 05:00 06/20/16 07:56 Bedside Glucose 233 H 95 67 L Sodium Level 137 Potassium Level 4.3 Chloride Level 103 Carbon Dioxide Level 28 Anion Gap 10 # Blood Urea Nitrogen 12 Creatinine 0.88 Glucose Level 58 #L Calcium Level 9.5 Test 06/20/16 08:18 06/20/16 08:51 06/20/16 11:23 Bedside Glucose 102 203 299 H Medications Medications Current Medications Amlodipine Besylate (Norvasc) 5 mg BID PO Last administered on 06/20/16 08:02 ; Admin Dose 5 MG; Start 06/14/16 at 23:00 Carbamazepine (Tegretol) 200 mg QAM PO Last administered on 06/20/16 08:03; Admin Dose 200 MG; Start 06/15/16 at 09:00 Fluoxetine HCl (Prozac) 40 mg QAM PO Last administered on 06/20/16 08:02; Admin Dose 40 MG; Start 06/15/16 at 09:00 Gabapentin (Neurontin) 300 mg BID PO Last administered on 06/20/16 08:03; Admin Dose 300 MG; Start 06/14/16 at 23:00 Lactobacillus Acidophilus/ Rhamnosus (Culturelle) 1 cap BID PO Last administered on 06/20/16 08:02; Admin Dose 1 CAP; Start 06/14/16 at 23:00 Losartan Potassium (Cozaar) 25 mg BID PO Last administered on 06/20/16 08:02; Admin Dose 25 MG; Start 06/15/16 at 09:00 Phenytoin (Dilantin) 300 mg BID PO Last administered on 06/20/16 08:01; Admin Dose 300 MG; Start 06/14/16 at 23:00 Quetiapine Fumarate (Seroquel) 100 mg QHS PO Last administered on 06/19/16 21: 10; Admin Dose 100 MG; Start 06/15/16 at 21:00 Tramadol HCl (Ultram) 50 mg Q6H PRN PO PAIN Last administered on 06/18/16 18: 07; Admin Dose 50 MG; Start 06/14/16 at 23:00 Ondansetron HCl (Zofran Tab) 4 mg Q6H PRN PO NAUSEA AND/OR VOMITING Last administered on 06/15/16 12:10; Admin Dose 4 MG; Start 06/14/16 at 23:00 Acetaminophen (Tylenol Tab) 650 mg Q6H PRN PO PAIN LEVEL 1-3 OR FEVER Last administered on 06/15/16 20:25; Admin Dose 650 MG; Start 06/14/16 at 23:00 Acetaminophen/ Hydrocodone Bitart ([place] (5/325)) 1 tab Q6H PRN PO MODERATE PAIN LEVEL 4-6 Last administered on 06/20/16 08:03; Admin Dose 1 TAB; Start at 23:00 Docusate Sodium (Colace) 100 mg Q12H PRN PO CONSTIPATION; Start 06/14/16 at 23: 00 Zolpidem Tartrate (Ambien) 5 mg QHS PRN PO SLEEP Last administered on 22:22; Admin Dose 5 MG; Start 06/14/16 at 23:00 Enoxaparin Sodium (Lovenox) 40 mg DAILY SC Last administered on 06/20/16 08:01 ; Admin Dose 40 MG; Start 06/15/16 at 09:00 Miscellaneous Information 1 ea NOTE XX ; Start 06/14/16 at 23:45 Glucose (Glutose) 15 gm Q15M PRN PO DECREASED GLUCOSE; Start 06/14/16 at 23:45 Glucose (Glutose) 22.5 gm Q15M PRN PO DECREASED GLUCOSE; Start 06/14/16 at 23: 45 Dextrose (D50w Syringe) 25 ml Q15M PRN IV DECREASED GLUCOSE; Start 06/14/16 at 23:45 Dextrose (D50w Syringe) 50 ml Q15M PRN IV DECREASED GLUCOSE; Start 06/14/16 at 23:45 Glucagon (Glucagen) 1 mg Q15M PRN IM DECREASED GLUCOSE; Start 06/14/16 at 23:45 Glucose 15 gm 15 gm Q15M PRN BUCCAL DECREASED GLUCOSE; Start 06/14/16 at 23:45 Piperacillin Sod/ Tazobactam Sod 100 ml @ 200 mls/hr Q8 IVPB Last administered on 06/20/16 14:41; Admin Dose 200 MLS/HR; Start 06/15/16 at 22:00 Vancomycin HCl (Vancocin) 250 ml @ 125 mls/hr Q12H IVPB Last administered on 11:42; Admin Dose 125 MLS/HR; Start 06/17/16 at 11:00 Ondansetron HCl (Zofran Inj) 4 mg Q4H PRN IV NAUSEA AND/OR VOMITING; Start at 18:00 Pantoprazole (Protonix Tab) 40 mg BID@06,18 PO Last administered on 06/20/16 06:17; Admin Dose 40 MG; Start 06/17/16 at 18:00 Al Hydrox/Mg Hydrox/Simethicone (Mag-Al Plus) 30 ml Q4H PRN PO GASTROINTESTINAL UPSET Last administered on 06/17/16 23:07; Admin Dose 30 ML; Start 06/17/16 at 23:00 Insulin Glargine (Lantus) 18 unit QHS SC Last administered on 06/19/16 21:10; Admin Dose 18 UNIT; Start 06/18/16 at 21:00 Diagnostic Test (Pha) (Accu-Chek) 1 ea 02 XX ; Start 06/19/16 at 02:00 Acetaminophen/ Hydrocodone Bitart ([place] (5/325)) 2 tab Q6H PRN PO SEVERE PAIN LEVEL 7-10 Last administered on 06/20/16 14:36; Admin Dose 2 TAB; Start at 11:30 Folic Acid (Folic Acid) 1 mg DAILY PO ; Start 06/21/16 at 09:00 Multivitamins Therapeutic (Theragran) 1 tab DAILY PO ; Start 06/21/16 at 09:00 Thiamine HCl (Vitamin B1) 100 mg DAILY PO ; Start 06/21/16 at 09:00 GABBY HERRERA NP Jun 20, 2016 15:02
[2016-06-20] MEDS: QUETIAPINE 100 MG TAB PO SCH (20:12)
[2016-06-20] MEDS: INSULIN GLARGINE [LANtus] 3 ML PEN SC SCH (20:23)
[2016-06-20 20:35] VITALS: BP 143/84; RESP 18
[2016-06-21] MEDS: ACCU-CHEK XX SCH (01:21)
[2016-06-21] MEDS ORDERED: LEVOFLOXACIN 750 MG TABLET PO SCH (06:00)
[2016-06-21 06:01] LABS: POTASSIUM 4.3 mmol/L (3.5-5.1)
[2016-06-21 06:03] LABS: CREATININE 0.91 mg/dl (0.61-1.24)
[2016-06-21 06:04] LABS: CALCIUM 9.1 mg/dl (8.4-10.2)
[2016-06-21] MEDS: PANTOPRAZOLE (EC) 40 MG TAB PO SCH ×2 (06:24→17:39)
[2016-06-21] MEDS: HYDROCODONE/APAP (5/325) TAB PO PRN ×2 (06:28→12:45)
[2016-06-21] MEDS: INSULIN ASPART [NOVOLOG] 3 ML PEN SC SCH ×6 (07:35→17:42)
[2016-06-21 08:49] VITALS: BP 144/90; RESP 17
[2016-06-21] MEDS ORDERED: THIAMINE 100 MG TAB PO SCH (09:00)
[2016-06-21] MEDS ORDERED: MULTIVITAMINS THERAPEUTIC TAB PO SCH (09:00)
[2016-06-21] MEDS ORDERED: FOLIC ACID 1 MG TAB PO SCH (09:00)
--- NOTE | 2016-06-21 10:05 | PDOCDIS ---
Discharge Instructions CONDITION Patient Condition: Stable HOME CARE INSTRUCTIONS: Special Diet: Carb Control ACTIVITY: Activity Restrictions: Slowly Increase Activity Partial Weight Bearing (right foot ) FOLLOW UP/APPOINTMENTS Appointments Follow up with Dr Cline and Dr Deleon at amputation prevention clinic within 1 week Follow up with Home health services for IV Vancomycin TI TATE Jun 21, 2016 10:05
[2016-06-21] MEDS ORDERED: HYDR-3498 PO (10:09)
[2016-06-21] MEDS ORDERED: LEVO750T25 PO (10:09)
[2016-06-21] MEDS ORDERED: MULTI PO (10:09)
[2016-06-21] MEDS ORDERED: FOLI-49 PO (10:09)
[2016-06-21] MEDS ORDERED: TRAM50TA2 PO (10:09)
[2016-06-21] MEDS ORDERED: VANC1FRO2 IV (10:09)
[2016-06-21] MEDS ORDERED: Thiamine PO (10:09)
[2016-06-21] MEDS: LACTOBACILLUS RHAMNOSUS CAP PO SCH (10:09)
[2016-06-21] MEDS: LOSARTAN 25 MG TAB PO SCH (10:09)
[2016-06-21] MEDS: PHENYTOIN 100 MG CAP PO SCH (10:10)
[2016-06-21] MEDS: GABAPENTIN 300 MG CAP PO SCH (10:10)
[2016-06-21] MEDS: FLUOXETINE 20 MG CAP PO SCH (10:10)
[2016-06-21] MEDS: carBAMAZepine CHEW 100 MG CHEW PO SCH (10:11)
[2016-06-21] MEDS: AMLODIPINE 5 MG TAB PO SCH (10:11)
[2016-06-21] MEDS: ENOXAPARIN 40 MG/0.4 ML SYG SC SCH (10:15)
[2016-06-21] MEDS ORDERED: LACT1CAP57 PO (10:32)
--- NOTE | 2016-06-21 10:49 | PN ---
Date/Time of Note Date/Time of Note DATE: 06/21/16 TIME: 10:37 Assessment/Plan VTE Prophylaxis VTE Prophylaxis Intervention: SCD's Lines/Catheters IV Catheter Type (from Nrs): Saline Lock Urinary Cath still in place: No Assessment/Plan Assessment/Plan 51 yo man with: 1. Persistent, progressive osteomyelitis of the right foot. ESR/CRP elevated, MRI with progressive osteomyelitis. Appreciate ID recs, Levaquin and Vancomycin x 14 days at least while arranging elective TMA vs foot amputation with Dr Zuniga and Dr Cline when patient follow up with them at Amputation clinic next week Blood cultures negative D/c home after PICC line placement today 2. Diabetes Mellitus: Continue Lantus, pre meal Insulin and SSI 3. Hypertension: Continue losartan and amlodipine, added Hydralazine 10mg IV q6h PRN for SBP > 160. 4. Alcohol use: On MVI/Thiamine/Folate po. Patient claims will not go back to it and apparently his alcoholic son who was visiting him yesterday did offer some to him and he declined ... 5. Bipolar disorder: Continue current meds Prophylaxis: DVT ppx with Lovenox and GI ppx with famotidine Disposition: D/c home today with Home health for IV Vanco and PICC line care, Follow up with [facility] clinic nexr week . Subjective 24 Hr Interval Summary Free Text/Dictation Patient remains stable Highly non compliant, ambulating all the time, not very compliant with diet, provided with off loading right shoe at least D/c plan home with IV abx and followup with [facility] next week Exam/Review of Systems Vital Signs Vitals Vital Signs Date Time Temp Pulse Resp B/P Pulse Ox O2 Delivery O2 Flow Rate FiO2 06/21/16 08:49 99.4 90 17 144/90 99 06/18/16 08:00 Room Air Intake and Output 06/20/16 06/20/16 06/21/16 15:00 23:00 07:00 Intake Total 250 ml 1930 ml 1170 ml Output Total 400 ml Balance 250 ml 1530 ml 1170 ml Exam Constitutional: alert, oriented, well developed Respiratory: clear to auscultation, normal air movement Cardiovascular: nl pulses, regular rate and rhythm Gastrointestinal: non-tender, soft Musculoskeletal: nl extremities to inspection (foot edema ), other Extremities: normal pulses, other (no clubbing or cyanosis ) Neurological: DRAWING BOX TENDER II-XII intact, nl mental status, nl speech, nl strength Results Result Diagram: 06/19/16 0455 06/21/16 0500 Results 24 hrs Laboratory Tests Test 06/20/16 11:23 06/20/16 17:03 06/20/16 19:59 06/21/16 05:00 Bedside Glucose 299 H 227 H 98 Sodium Level 137 Potassium Level 4.3 Chloride Level 101 Carbon Dioxide Level 27 Anion Gap 13 Blood Urea Nitrogen 18 Creatinine 0.91 Glucose Level 100 # Calcium Level 9.1 Test 06/21/16 08:00 06/21/16 08:27 06/21/16 08:49 Bedside Glucose 81 123 124 Medications Medications Current Medications Amlodipine Besylate (Norvasc) 5 mg BID PO Last administered on 06/21/16 10:11 ; Admin Dose 5 MG; Start 06/14/16 at 23:00 Carbamazepine (Tegretol) 200 mg QAM PO Last administered on 06/21/16 10:11; Admin Dose 200 MG; Start 06/15/16 at 09:00 Fluoxetine HCl (Prozac) 40 mg QAM PO Last administered on 06/21/16 10:10; Admin Dose 40 MG; Start 06/15/16 at 09:00 Gabapentin (Neurontin) 300 mg BID PO Last administered on 06/21/16 10:10; Admin Dose 300 MG; Start 06/14/16 at 23:00 Lactobacillus Acidophilus/ Rhamnosus (Culturelle) 1 cap BID PO Last administered on 06/21/16 10:09; Admin Dose 1 CAP; Start 06/14/16 at 23:00 Losartan Potassium (Cozaar) 25 mg BID PO Last administered on 06/21/16 10:09; Admin Dose 25 MG; Start 06/15/16 at 09:00 Phenytoin (Dilantin) 300 mg BID PO Last administered on 06/21/16 10:10; Admin Dose 300 MG; Start 06/14/16 at 23:00 Quetiapine Fumarate (Seroquel) 100 mg QHS PO Last administered on 06/20/16 20: 12; Admin Dose 100 MG; Start 06/15/16 at 21:00 Tramadol HCl (Ultram) 50 mg Q6H PRN PO PAIN Last administered on 06/18/16 18: 07; Admin Dose 50 MG; Start 06/14/16 at 23:00 Ondansetron HCl (Zofran Tab) 4 mg Q6H PRN PO NAUSEA AND/OR VOMITING Last administered on 06/15/16 12:10; Admin Dose 4 MG; Start 06/14/16 at 23:00 Acetaminophen (Tylenol Tab) 650 mg Q6H PRN PO PAIN LEVEL 1-3 OR FEVER Last administered on 06/15/16 20:25; Admin Dose 650 MG; Start 06/14/16 at 23:00 Acetaminophen/ Hydrocodone Bitart ([place] (5/325)) 1 tab Q6H PRN PO MODERATE PAIN LEVEL 4-6 Last administered on 06/20/16 08:03; Admin Dose 1 TAB; Start at 23:00 Docusate Sodium (Colace) 100 mg Q12H PRN PO CONSTIPATION; Start 06/14/16 at 23: 00 Zolpidem Tartrate (Ambien) 5 mg QHS PRN PO SLEEP Last administered on 22:22; Admin Dose 5 MG; Start 06/14/16 at 23:00 Enoxaparin Sodium (Lovenox) 40 mg DAILY SC Last administered on 06/21/16 10:15 ; Admin Dose 40 MG; Start 06/15/16 at 09:00 Miscellaneous Information 1 ea NOTE XX ; Start 06/14/16 at 23:45 Glucose (Glutose) 15 gm Q15M PRN PO DECREASED GLUCOSE; Start 06/14/16 at 23:45 Glucose (Glutose) 22.5 gm Q15M PRN PO DECREASED GLUCOSE; Start 06/14/16 at 23: 45 Dextrose (D50w Syringe) 25 ml Q15M PRN IV DECREASED GLUCOSE; Start 06/14/16 at 23:45 Dextrose (D50w Syringe) 50 ml Q15M PRN IV DECREASED GLUCOSE; Start 06/14/16 at 23:45 Glucagon (Glucagen) 1 mg Q15M PRN IM DECREASED GLUCOSE; Start 06/14/16 at 23:45 Glucose 15 gm 15 gm Q15M PRN BUCCAL DECREASED GLUCOSE; Start 06/14/16 at 23:45 Vancomycin HCl (Vancocin) 250 ml @ 125 mls/hr Q12H IVPB Last administered on 23:25; Admin Dose 125 MLS/HR; Start 06/17/16 at 11:00 Ondansetron HCl (Zofran Inj) 4 mg Q4H PRN IV NAUSEA AND/OR VOMITING; Start at 18:00 Pantoprazole (Protonix Tab) 40 mg BID@,18 PO Last administered on 06/21/16 06:24; Admin Dose 40 MG; Start 06/17/16 at 18:00 Al Hydrox/Mg Hydrox/Simethicone (Mag-Al Plus) 30 ml Q4H PRN PO GASTROINTESTINAL UPSET Last administered on 06/17/16 23:07; Admin Dose 30 ML; Start 06/17/16 at 23:00 Insulin Glargine (Lantus) 18 unit QHS SC Last administered on 06/20/16 20:23; Admin Dose 18 UNIT; Start 06/18/16 at 21:00 Diagnostic Test (Pha) (Accu-Chek) 1 ea 02 XX ; Start 06/19/16 at 02:00 Acetaminophen/ Hydrocodone Bitart ([place] (5/325)) 2 tab Q6H PRN PO SEVERE PAIN LEVEL 7-10 Last administered on 06/21/16 06:28; Admin Dose 2 TAB; Start at 11:30 Folic Acid (Folic Acid) 1 mg DAILY PO Last administered on 06/21/16 10:10; Admin Dose 1 MG; Start 06/21/16 at 09:00 Multivitamins Therapeutic (Theragran) 1 tab DAILY PO Last administered on 10:10; Admin Dose 1 TAB; Start 06/21/16 at 09:00 Thiamine HCl (Vitamin B1) 100 mg DAILY PO Last administered on 06/21/16 10:10 ; Admin Dose 100 MG; Start 06/21/16 at 09:00 Levofloxacin (Levaquin) 750 mg DAILY@06 PO Last administered on 06/21/16 06:24 ; Admin Dose 750 MG; Start 06/21/16 at 06:00 Lidocaine (Xylocaine 1% (Mpf)) 5 ml ONCE ONCE SC ; Start 06/21/16 at 11:00; Stop 06/21/16 at 11:01 TI TATE Jun 21, 2016 10:48
[2016-06-21] MEDS ORDERED: LIDOCAINE 1% (MPF) 5 ML VIAL SC ONE (11:00)
[2016-06-21] MEDS: VANCOMYCIN 1 GM in NS 250 ML IVPB SCH (12:45)
--- NOTE | 2016-06-21 14:15 | RADRPT ---
PROCEDURE: XR Chest. CLINICAL INDICATION: Post PICC placement TECHNIQUE: AP view of the chest was obtained. COMPARISON: 04/06/2016 FINDINGS: Left arm PICC line present with the tip at the lower SVC region. The cardiomediastinal silhouette i s within normal limits. The lungs are clear. No pleural effusion or pneumothorax is identified. C hronic healed posterior left eighth rib fracture is seen. IMPRESSION: Satisfactory PICC placement. RPTAT: VV .Jerardo Morrison MD, Date Time Electronically viewed and signed by .Jerardo Morrison MD, on 06/21/2016 14:15 .O/
--- NOTE | 2016-06-21 15:22 | CONS ---
Date/Time of Note Date/Time of Note DATE: 06/21/16 TIME: 15:21 Assessment/Plan Assessment/Plan Chief Complaint/Hosp Course SUBJECTIVE: The patient is alert, ambulating in hallway, no fevers MICROBIOLOGY: Blood cultures negative. DIAGNOSTICS: MRI of his right foot revealed multiple areas of osteomyelitis with significant progression. ANTIMICROBIALS: 1. Vancomycin. 2. Levaquin. PHYSICAL EXAMINATION: GENERAL: Well-developed middle-aged man who is alert, in no distress. HEENT: Head atraumatic, normocephalic. Sclerae anicteric. Buccal mucosa pink. NECK: Supple. Trachea midline. CHEST: Rise symmetrical. Breath sounds clear. HEART: S1, S2. ABDOMEN: Soft. Bowel tones present. EXTREMITIES: Right lower extremity edema and erythema. ASSESSMENT: 1. Right foot acute on chronic osteomyelitis, failed antibiotics. 2. Diabetes. 3. Hypertension. 4. Bipolar disorder 5. Tobacco/ETOH abuse PLAN: Stable. Pending dc home on current abx with PICC, pt to f/u with podiatry in a week for poss amputation DW Dr Harkins Problems: Consultation Date/Type/Reason Admit Date/Time Jun 16, 2016 at 19:52 Initial Consult Date 06/18/16 Type of Consultation: ID Exam/Review of Systems Vital Signs Vitals Vital Signs Date Time Temp Pulse Resp B/P Pulse Ox O2 Delivery O2 Flow Rate FiO2 06/21/16 08:49 99.4 90 17 144/90 99 06/18/16 08:00 Room Air Intake and Output 06/20/16 06/20/16 06/21/16 15:00 23:00 07:00 Intake Total 250 ml 1930 ml 1170 ml Output Total 400 ml Balance 250 ml 1530 ml 1170 ml Results Result Diagram: 06/19/16 0455 06/21/16 0500 Results 24 hrs Laboratory Tests Test 06/20/16 17:03 06/20/16 19:59 06/21/16 05:00 06/21/16 08:00 Bedside Glucose 227 H 98 81 Sodium Level 137 Potassium Level 4.3 Chloride Level 101 Carbon Dioxide Level 27 Anion Gap 13 Blood Urea Nitrogen 18 Creatinine 0.91 Glucose Level 100 # Calcium Level 9.1 Test 06/21/16 08:27 06/21/16 08:49 06/21/16 12:39 Bedside Glucose 123 124 217 Medications Medications Current Medications Amlodipine Besylate (Norvasc) 5 mg BID PO Last administered on 06/21/16 10:11 ; Admin Dose 5 MG; Start 06/14/16 at 23:00 Carbamazepine (Tegretol) 200 mg QAM PO Last administered on 06/21/16 10:11; Admin Dose 200 MG; Start 06/15/16 at 09:00 Fluoxetine HCl (Prozac) 40 mg QAM PO Last administered on 06/21/16 10:10; Admin Dose 40 MG; Start 06/15/16 at 09:00 Gabapentin (Neurontin) 300 mg BID PO Last administered on 06/21/16 10:10; Admin Dose 300 MG; Start 06/14/16 at 23:00 Lactobacillus Acidophilus/ Rhamnosus (Culturelle) 1 cap BID PO Last administered on 06/21/16 10:09; Admin Dose 1 CAP; Start 06/14/16 at 23:00 Losartan Potassium (Cozaar) 25 mg BID PO Last administered on 06/21/16 10:09; Admin Dose 25 MG; Start 06/15/16 at 09:00 Phenytoin (Dilantin) 300 mg BID PO Last administered on 06/21/16 10:10; Admin Dose 300 MG; Start 06/14/16 at 23:00 Quetiapine Fumarate (Seroquel) 100 mg QHS PO Last administered on 06/20/16 20: 12; Admin Dose 100 MG; Start 06/15/16 at 21:00 Tramadol HCl (Ultram) 50 mg Q6H PRN PO PAIN Last administered on 06/18/16 18: 07; Admin Dose 50 MG; Start 06/14/16 at 23:00 Ondansetron HCl (Zofran Tab) 4 mg Q6H PRN PO NAUSEA AND/OR VOMITING Last administered on 06/15/16 12:10; Admin Dose 4 MG; Start 06/14/16 at 23:00 Acetaminophen (Tylenol Tab) 650 mg Q6H PRN PO PAIN LEVEL 1-3 OR FEVER Last administered on 06/15/16 20:25; Admin Dose 650 MG; Start 06/14/16 at 23:00 Acetaminophen/ Hydrocodone Bitart ([place] (5/325)) 1 tab Q6H PRN PO MODERATE PAIN LEVEL 4-6 Last administered on 06/20/16 08:03; Admin Dose 1 TAB; Start at 23:00 Docusate Sodium (Colace) 100 mg Q12H PRN PO CONSTIPATION; Start 06/14/16 at 23: 00 Zolpidem Tartrate (Ambien) 5 mg QHS PRN PO SLEEP Last administered on 22:22; Admin Dose 5 MG; Start 06/14/16 at 23:00 Enoxaparin Sodium (Lovenox) 40 mg DAILY SC Last administered on 06/21/16 10:15 ; Admin Dose 40 MG; Start 06/15/16 at 09:00 Miscellaneous Information 1 ea NOTE XX ; Start 06/14/16 at 23:45 Glucose (Glutose) 15 gm Q15M PRN PO DECREASED GLUCOSE; Start 06/14/16 at 23:45 Glucose (Glutose) 22.5 gm Q15M PRN PO DECREASED GLUCOSE; Start 06/14/16 at 23: 45 Dextrose (D50w Syringe) 25 ml Q15M PRN IV DECREASED GLUCOSE; Start 06/14/16 at 23:45 Dextrose (D50w Syringe) 50 ml Q15M PRN IV DECREASED GLUCOSE; Start 06/14/16 at 23:45 Glucagon (Glucagen) 1 mg Q15M PRN IM DECREASED GLUCOSE; Start 06/14/16 at 23:45 Glucose 15 gm 15 gm Q15M PRN BUCCAL DECREASED GLUCOSE; Start 06/14/16 at 23:45 Vancomycin HCl (Vancocin) 250 ml @ 125 mls/hr Q12H IVPB Last administered on 12:45; Admin Dose 125 MLS/HR; Start 06/17/16 at 11:00 Ondansetron HCl (Zofran Inj) 4 mg Q4H PRN IV NAUSEA AND/OR VOMITING Last administered on 06/21/16 12:59; Admin Dose 4 MG; Start 06/17/16 at 18:00 Pantoprazole (Protonix Tab) 40 mg BID@06,18 PO Last administered on 06/21/16 06:24; Admin Dose 40 MG; Start 06/17/16 at 18:00 Al Hydrox/Mg Hydrox/Simethicone (Mag-Al Plus) 30 ml Q4H PRN PO GASTROINTESTINAL UPSET Last administered on 06/17/16 23:07; Admin Dose 30 ML; Start 06/17/16 at 23:00 Insulin Glargine (Lantus) 18 unit QHS SC Last administered on 06/20/16 20:23; Admin Dose 18 UNIT; Start 06/18/16 at 21:00 Diagnostic Test (Pha) (Accu-Chek) 1 ea 02 XX ; Start 06/19/16 at 02:00 Acetaminophen/ Hydrocodone Bitart ([place] (5/325)) 2 tab Q6H PRN PO SEVERE PAIN LEVEL 7-10 Last administered on 06/21/16 12:45; Admin Dose 2 TAB; Start at 11:30 Folic Acid (Folic Acid) 1 mg DAILY PO Last administered on 06/21/16 10:10; Admin Dose 1 MG; Start 06/21/16 at 09:00 Multivitamins Therapeutic (Theragran) 1 tab DAILY PO Last administered on 10:10; Admin Dose 1 TAB; Start 06/21/16 at 09:00 Thiamine HCl (Vitamin B1) 100 mg DAILY PO Last administered on 06/21/16 10:10 ; Admin Dose 100 MG; Start 06/21/16 at 09:00 Levofloxacin (Levaquin) 750 mg DAILY@06 PO Last administered on 06/21/16 06:24 ; Admin Dose 750 MG; Start 06/21/16 at 06:00 IV Flush (NS 10 ml) 10 ml PRN PRN IV IV PROTOCOL; Start 06/21/16 at 13:30 GABBY HERRERA NP Jun 21, 2016 15:22
[2016-06-21] MEDS: traMADol 50 MG TAB PO PRN (17:40)
[2016-06-21] MEDS ORDERED: SOD CHLORIDE 0.9% 100 ML ONE (17:55)
--- NOTE | 2016-06-21 17:59 | RADRPT ---
PROCEDURE: US guidance for PICC line CLINICAL INDICATION: PICC line placement TECHNIQUE: Multiple real-time images were acquired of the patient's arm utilizing a high resolutio n transducer. This was performed by the PICC line nurse for venous access. COMPARISON: None FINDINGS: Ultrasound guidance for PICC line placement. Patent and compressible left upper extremity vein. IMPRESSION: Ultrasound guidance for PICC line placement. Patent and compressible left upper extremity vein. RPTAT: AA Physician Essence Date Time Electronically viewed and signed by Blair Sargent Physician on 06/21/2016 17:58 RA/
== END 2016-06-21 18:09 | disposition home health service (06) | DRG 638 ==
LOC: E/R 18:16 → PP2 21:38 → OBSVTOIN 06-16 19:52
PROVIDERS: ADMIT Internal Medicine; ATTEND Internal Medicine
PROC: 02HV33Z Insertion of Infusion Device into Superior Vena Cava, Percutaneous Approach (ICD-10-PCS; principal; 2016-06-21)
DX: E11.69 Type 2 diabetes mellitus with other specified complication (principal); M86.171 Other acute osteomyelitis, right ankle and foot; M00.9 Pyogenic arthritis, unspecified; E11.42 Type 2 diabetes mellitus with diabetic polyneuropathy; I10 Essential (primary) hypertension; F31.9 Bipolar disorder, unspecified; I49.3 Ventricular premature depolarization; Z72.89 Other problems related to lifestyle; Y90.7 Blood alcohol level of 200-239 mg/100 ml; M84.474G Pathological fracture, right foot, subsequent encounter for fracture with delayed healing; Z89.421 Acquired absence of other right toe(s); I73.9 Peripheral vascular disease, unspecified; E11.610 Type 2 diabetes mellitus with diabetic neuropathic arthropathy; Z72.0 Tobacco use; Z91.11 Patient's noncompliance with dietary regimen; Z91.19 Patient's noncompliance with other medical treatment and regimen
CPT/HCPCS: 36569; 71010; 73630; 73718; 75635; 76937; 80048; 80053; 80202; 80306; 81001; 81003; 82962; 83036; 83605; 83735; 84100; 84443; 85025; 85610; 85651; 86140; 87040; 93922; 96365; 96366; 96368; G0378; J1650; J1815; J2405; J2543; J3370; J3411; J3475; J7030; Q9967

== ENCOUNTER 2016-09-05 18:30 | Emergency (ER) | payer OTHER ==
[~2016-09-05] VITALS: Ht 170.2 cm; Wt 65.9 kg
[~2016-09-05 18:30] MED LIST changes: +FOLI-49 PO; +HYDR-3498 PO; +MULTI PO; +Thiamine PO; +VANC1FRO2 IV
[2016-09-05 18:37] VITALS: Ht 170.2 cm; Wt 65.9 kg
--- NOTE | 2016-09-05 19:17 | RADRPT ---
PROCEDURE: XR Foot. CLINICAL INDICATION: Right foot pain. TECHNIQUE: AP, lateral and oblique views of the right foot was obtained. The images were reviewed on a PACS workstation. COMPARISON: 04/03/2016 FINDINGS: Amputation of the second digit is once again seen at the level of the second metatarsal head. Amput ation of the fifth digit is also once again seen at the level of the fifth metatarsal head. A heale d fracture deformity of the fifth metatarsal is seen which is new compared to the prior examination. Progressive erosion at the level of the first MTP joint is seen with areas of sclerosis which has increased. Periosteal reaction is seen involving the second metatarsal. Suggestion of a nondisplace d fracture of the distal second metatarsal shaft is seen. No other acute fracture or dislocation is seen. Diffuse soft tissue swelling is seen which is most prominent dorsally. IMPRESSION: 1. Progression of the erosive changes at the level of the first MTP joint indicating progression of the septic arthritis/osteomyelitis. Further evaluation with an MRI is recommended. 2. Suggestion of a healing fracture of the distal second metatarsal with extensive periosteal react ion. 3. Chronic healed fracture of the fifth metatarsal. RPTAT: HPNM Physician Avni Date Time Electronically viewed and signed by Physician Avni on 09/05/2016 19:17 /
[2016-09-05] MEDS ORDERED: SOD CHLORIDE 0.9% 1,000 ML IV STA (19:25)
[2016-09-05] MEDS ORDERED: VANCOMYCIN 1.25 GM in SOD CHLORIDE 0.9% 250 ML IVPB ONE (19:30)
[2016-09-05 19:39] LABS: ADD SCAN DIFF NO
[2016-09-05 19:40] LABS: BASOPHIL # 0.1 10^3/ul (0.0-0.1); BASOPHILS % 1.4 % (0.0-2.0); EOSINOPHILS # 0.3 10^3/ul (0.0-0.5); EOSINOPHILS % 3.2 % (0.0-7.0); HEMATOCRIT 40.7 % (42.0-52.0); HEMOGLOBIN 13.7 g/dl (14.0-18.0); LYMPHOCYTES # 2.4 10^3/ul (0.8-2.9); LYMPHOCYTES % 30.4 % (15.0-51.0); MEAN CORPUSCULAR HEMOGLOBIN 26.8 pg (29.0-33.0); MEAN CORPUSCULAR HGB CONC 33.7 g/dl (32.0-37.0); MEAN CORPUSCULAR VOLUME 79.6 fl (82.0-101.0); MEAN PLATELET VOLUME 9.7 fl (7.4-10.4); MONOCYTE # 0.4 10^3/ul (0.3-0.9); MONOCYTES % 4.7 % (0.0-11.0); NEUTROPHIL # 4.7 10^3/ul (1.6-7.5); PLATELET COUNT 505 10^3/UL (140-415); RED BLOOD COUNT 5.11 10^6/ul (4.70-6.10); RED CELL DISTRIBUTION WIDTH 15.9 % (11.5-14.5); WHITE BLOOD COUNT 7.7 10^3/ul (4.8-10.8)
[2016-09-05 19:49] LABS: ALBUMIN 5.1 g/dl (3.3-4.9); ALBUMIN/GLOBULIN RATIO 1.21; BILIRUBIN,INDIRECT 0.1 mg/dl (0-1.1); BILIRUBIN,TOTAL 0.1 mg/dl (0.2-1.3); CREATININE 0.99 mg/dl (0.61-1.24); POTASSIUM 3.9 mmol/L (3.5-5.1); TOTAL PROTEIN 9.3 g/dl (6.1-8.1)
[2016-09-05 20:09] LABS: ADD UMIC YES; UR ASCORBIC ACID NEGATIVE (NEGATIVE); UR BILIRUBIN (Dip) NEGATIVE (NEGATIVE); UR BLOOD (Dip) NEGATIVE (NEGATIVE); UR CLARITY CLEAR (CLEAR); UR COLOR YELLOW (YELLOW); UR GLUCOSE (Dip) 2+ mg/dL (NEGATIVE); UR KETONES (Dip) TRACE mg/dL (NEGATIVE); UR LEUKOCYTE ESTERASE (Dip) NEGATIVE Leu/ul (NEGATIVE); UR NITRITE (Dip) NEGATIVE (NEGATIVE); UR RBC 1 /HPF (0-5); UR SPECIFIC GRAVITY (Dip) 1.017 (1.003-1.030); UR TOTAL PROTEIN (Dip) 2+ mg/dl (NEGATIVE); UR UROBILINOGEN (Dip) NEGATIVE (NEGATIVE)
--- NOTE | 2016-09-05 20:22 | ERA ---
ER Documentation Chief Complaint Date/Time DATE: 09/05/16 TIME: 20:20 Chief Complaint right chronic diabetic foot pain, ETOH drank "lots of gin today" HPI This is a 61-year-old male presents to the emergency room for evaluation of right foot pain. The patient states that he did drink alcohol today. States that he has had infections in his foot previously. The patient came to the ER today for evaluation. The patient localizes the pain to the right foot and denies any fevers associated with this pain for ROS All systems reviewed and are negative except as per history of present illness. Medications Home Meds Active Scripts Lactobacillus Rhamnosus* (Culturelle*) 1 Each Cap.sprink, 1 CAP PO BID for 60 Days, CAP Prov:TI TATE 06/21/16 Vancomycin/0.9 % Sod Chloride (Vancomycin 1 G/200Ml-0.9% NaCl) 1 Gm/200 Ml Froz.piggy, 1 GM IV Q12 for 14 Days Prov:TI TATE 06/21/16 [Thiamine] 100 MG TAB No Conflict Check, 100 MG PO DAILY for 30 Days Prov:TI TATE 06/21/16 Multivitamins* (Theragran*) 1 Tab Tab, 1 TAB PO DAILY for 30 Days, TAB Prov:TI TATE 06/21/16 Folic Acid* (Folic Acid*) 1 Mg Tablet, 1 MG PO DAILY for 30 Days, TAB Prov:TI TATE 06/21/16 Hydrocodone Bit-Acetaminophen (Hydrocodone Bit-APAP) 5-325MG Tablet, 2 TAB PO Q6H Y for SEVERE PAIN LEVEL 7-10 for 60 Days, TAB Prov:TI TATE 06/21/16 Levofloxacin* (Levaquin*) 750 Mg Tablet, 750 MG PO DAILY@06 for 14 Days, TAB Prov:TI TATE 06/21/16 Tramadol HCl (Tramadol HCl) 50 Mg Tablet, 50 MG PO Q6 Y for PAIN, #30 TAB Prov:TI TATE 06/21/16 Amlodipine Besylate* (Amlodipine Besylate*) 5 Mg Tablet, 5 MG PO BID for 30 Days , TAB 3 Refills Prov:TI TATE 04/05/16 Losartan Potassium* (Cozaar*) 25 Mg Tablet, 25 MG PO BID for 30 Days, TAB 3 Refills Prov:TI TATE 04/05/16 Insulin Aspart* (Novolog Insulin Pen*) 100 Unit/Ml Soln, 4 UNIT SC WITH MEALS for 30 Days Prov:TI TATE 04/05/16 Reported Medications Insulin Glargine* (Lantus*) 100 Unit/Ml Soln, 15 UNIT SC QHS, #1 VIAL 04/01/16 Gabapentin* (Gabapentin*) 300 Mg Capsule, 300 MG PO BID, #60 CAP 07/21/15 Carbamazepine* (Carbamazepine*) 100 Mg Tab.chew, 200 MG PO QAM, #60 TAB.CHEW 06/26/15 Quetiapine Fumarate* (Seroquel*) 100 Mg Tablet, 100 MG PO QHS, TAB 10/22/14 Fluoxetine Hcl* (Prozac*) 40 Mg Capsule, 40 MG PO QAM, CAP 10/22/14 Phenytoin* Sodium Extended (Dilantin*) 100 Mg Capsule, 300 MG PO BID, CAP 10/22/14 Insulin Lispro (Humalog) 100 U/Ml Cartridge, 0 SC SLIDING SCALE AC, EA 111-150 = 1 UNIT 151-200 = 2 UNITS 201-250 = 4 UNITS 251-300 = 6 UNITS 301-350 = 8 UNITS 351-400 = 10 UNITS 401-450 = 12 UNITS 10/22/14 Allergies Allergies: Coded Allergies: mushroom (Verified Allergy, Severe, 06/15/16) swollen throat, No Known Drug Allergy (Verified Allergy, Unknown, 06/14/16) PMhx/Soc History of Surgery: Yes (right knee sx) Anesthesia Reaction: No Hx Neurological Disorder: No Hx Respiratory Disorders: No Hx Cardiac Disorders: No Hx Psychiatric Problems: No Hx Miscellaneous Medical Probl: Yes (DM) Hx Alcohol Use: Yes ("drank lots of gin today") Hx Substance Use: Yes (marijuana) Hx Tobacco Use: Yes Smoking Status: Current some day smoker Physical Exam Vitals Vital Signs Date Time Temp Pulse Resp B/P Pulse Ox O2 Delivery O2 Flow Rate FiO2 09/05/16 18:45 95 22 160/99 99 Room Air 09/05/16 18:37 98.1 90 20 160/105 99 Physical Exam INITIAL VITAL SIGNS: Reviewed by me GENERAL: The patient is a disheveled appearance HEENT: Pupils equal, round, and reactive to light. EOMI. There is no scleral icterus. NECK: C-spine is soft and supple, there is no meningismus. There is no cervical lymphadenopathy. LUNGS: Clear to auscultation bilaterally. There are no rales, wheezes or rhonchi. HEART: Regular rate and rhythm, no murmurs, clicks, rubs or gallops. ABDOMEN: Soft, non-tender, non-distended. There are bowel sounds in all four quadrants. No rebound or guarding. EXTREMITIES: Soft tissue swelling of the right foot, toe amputation, there is no peripheral cyanosis. NEUROLOGICAL: The patient moves all four extremities with 5/5 strength. Cranial nerves II - XII are intact. Normal gait. Alert and oriented SKIN: There is no apparent rash or petechiae. HEME/LYMPHATIC: There is no evidence of excessive bruising or lymphedema. PSYCHIATRIC: The patient does not appear anxious or depressed. Result Diagram: 09/05/16 1645 09/05/16 1645 Results 24 hrs Laboratory Tests Test 09/05/16 16:45 09/05/16 19:45 White Blood Count 7.710^3/ul Red Blood Count 5.1110^6/ul Hemoglobin 13.7g/dl Hematocrit 40.7% Mean Corpuscular Volume 79.6fl Mean Corpuscular Hemoglobin 26.8pg Mean Corpuscular Hemoglobin Concent 33.7g/dl Red Cell Distribution Width 15.9% Platelet Count 27162^3/UL Mean Platelet Volume 9.7fl Neutrophils % 60.0% Lymphocytes % 30.4% Monocytes % 4.7% Eosinophils % 3.2% Basophils % 1.4% Nucleated Red Blood Cells % 0.0/100WBC Neutrophils # 4.710^3/ul Lymphocytes # 2.410^3/ul Monocytes # 0.410^3/ul Eosinophils # 0.310^3/ul Basophils # 0.110^3/ul Nucleated Red Blood Cells # 0.010^3/ul Sodium Level 145mmol/L Potassium Level 3.9mmol/L Chloride Level 95mmol/L Carbon Dioxide Level 26mmol/L Anion Gap 28 Blood Urea Nitrogen 18mg/dl Creatinine 0.99mg/dl Glucose Level 133mg/dl Calcium Level 10.0mg/dl Total Bilirubin 0.1mg/dl Direct Bilirubin 0.00mg/dl Indirect Bilirubin 0.1mg/dl Aspartate Amino Transf (AST/SGOT) 110IU/L Alanine Aminotransferase (ALT/SGPT) 50IU/L Alkaline Phosphatase 223IU/L Total Protein 9.3g/dl Albumin 5.1g/dl Globulin 4.20g/dl Albumin/Globulin Ratio 1.21 Lipase 37U/L Urine Color YELLOW Urine Clarity CLEAR Urine pH 5.0 Urine Specific [place] 1.017 Urine Ketones TRACEmg/dL Urine Nitrite NEGATIVEmg/dL Urine Bilirubin NEGATIVEmg/dL Urine Urobilinogen NEGATIVEmg/dL Urine Leukocyte Esterase NEGATIVELeu/ul Urine Microscopic RBC 1/HPF Urine Microscopic WBC 1/HPF Urine Hemoglobin NEGATIVEmg/dL Urine Glucose 2+mg/dL Urine Total Protein 2+mg/dl Current Medications Medications (Trade) Dose Ordered Sig/Nidia Route PRN Reason Start Time Stop Time Status Last Admin Dose Admin Sodium Chloride 1,000 ml @ 1,000 mls/hr Q1H STAT IV 09/05/16 19:25 09/05/16 20:24 09/05/16 20:15 Vancomycin HCl/ Sodium Chloride (Vancocin/NS) 250 ml @ 83.333 mls/ hr ONCE ONCE IVPB 09/05/16 19:30 09/05/16 22:29 09/05/16 20:15 Procedures/MDM X-ray Foot 3V Interpreted by me: Bones: Osteomyelitis Joints: No dislocation Foreign body: None This 51-year-old male presents to the ER for evaluation of right foot pain. When I evaluated this patient is patient did have soft tissue swelling of the right foot. X-ray does reveal osteomyelitis. This patient has had a previous amputation from osteomyelitis. He was started on vancomycin in the emergency room. I have contacted the admitting physician, Dr. Fofana who states this patient can be transferred to inpatient rehabilitation center where he can be seen by a surgeon for possible debridement. This patient is hemodynamically stable for transfer will be transferred at this time. Departure Diagnosis: Primary Impression: Osteomyelitis of toe of right foot Additional Impression: Cellulitis Condition: Stable YOLANDE TREJO DO Sep 05, 2016 20:22
[2016-09-05] MEDS ORDERED: ONDANSETRON 4 MG INJ IV STA (21:13)
[2016-09-05] MEDS ORDERED: morphine 4 MG/ML VIAL IV STA (21:13)
[2016-09-05] MEDS ORDERED: ONDANSETRON 4 MG INJ ONE (21:15)
[2016-09-05] MEDS ORDERED: morphine 4 MG/ML VIAL ONE (21:16)
--- NOTE | 2016-09-05 23:03 | RADRPT ---
PROCEDURE: MR right foot without contrast. CLINICAL INDICATION: Foot pain. Osteomyelitis TECHNIQUE: 1.5 Tiara scanner: Sagittal T1/inversion recovery, coronal T1/proton-density fat satura tion, axial T1/proton-density fat saturation. COMPARISON: Right foot x-ray 09/05/2016. MRI of the right foot 06/17/2016 FINDINGS: Osseous structures: Abnormal decreased T1 signal is again noted within the mid and distal metatarsa l of the great toe, the first proximal phalanx and to a lesser degree of the second metatarsal. Sim ilar abnormal signal within the sesamoid bones of the great toe is present An ununited second metata rsal neck fracture is again noted. Amputation of the phalanges of the second toe are again seen. A mputation of the distal fifth metatarsal and fifth phalanges again seen. There is a tubular bones a re unremarkable Tendons, musculature, ligaments and subcutaneous tissues: Abnormal fluid signal within the metatarsa l phalangeal joint of the great toe is similar to the prior examination consistent with septic arthr itis with associated widening of the joint space as seen on the recent x-ray. A cystic-like structu re is not visualized along the posterior fourth metatarsal base possibly a synovial cyst. There is no obvious tendinous or ligamentous rupture. Diffuse subcutaneous fat stranding is compatible with cellulitis without evidence of abscess RPTAT:HJJR IMPRESSION: 1. Chronic osteomyelitis of the right foot most effecting the metatarsal and proximal phalanx of th e great toe with associated septic arthritis of the first metatarsal phalangeal joint, overall findi ngs are not significantly changed compared to the MRI of 06/17/2016 allowing for technical differenc es. 2. Additional chronic osteomyelitis in the second metatarsal neck with chronic periosteal reaction and an ununited second metatarsal neck fracture. 3. Amputation of the second digit phalanges and fifth digit from the distal metatarsal level, chroni c osteomyelitis of the fifth remaining metatarsals difficult to exclude. 4. Diffuse cellulitis of the right forefoot without evidence of subcutaneous abscess. 5. Likely development of a small synovial cyst posterior to the fourth metatarsal base. Oseas Reyes Physician Date Time Electronically viewed and signed by Oseas Reyes Physician on 09/05/2016 23:03 /
[2016-09-06 00:33] VITALS: BP 149/69; PULSE 98; RESP 18; TEMP 97
== END 2016-09-06 00:39 ==
LOC: E/R 18:30
DX: M86.9 Osteomyelitis, unspecified (principal); L03.115 Cellulitis of right lower limb; E11.9 Type 2 diabetes mellitus without complications; F17.210 Nicotine dependence, cigarettes, uncomplicated; Z79.4 Long term (current) use of insulin
CPT/HCPCS: 73630; 73718; 80053; 81001; 83605; 83690; 85025; 87040; 96365; 96366; 96375; J2270; J2405; J3370; J7030; J7050; Z7502

== ENCOUNTER 2016-11-11 14:05 | Emergency (ER) | payer OTHER ==
[~2016-11-11] VITALS: Ht 165.1 cm; Wt 74.5 kg
[~2016-11-11 14:05] MED LIST changes: -LANT3I SC; -LEVO750T25 PO
[2016-11-11 14:16] VITALS: Ht 165.1 cm; Wt 74.5 kg
[2016-11-11] MEDS ORDERED: IBUPROFEN 600 MG TAB PO ONE (15:30)
[2016-11-11] MEDS ORDERED: traMADol 50 MG TAB PO ONE (15:30)
[2016-11-11] MEDS ORDERED: CEPH-443 PO (16:31)
[2016-11-11] MEDS ORDERED: CIPR500T4 PO (16:31)
[2016-11-11] MEDS ORDERED: TRAM50TA2 PO (16:31)
--- NOTE | 2016-11-11 16:38 | ERD ---
ER Documentation Chief Complaint Date/Time DATE: 11/11/16 TIME: 16:34 Chief Complaint RT FOOT PAIN POSSIBLE DIABETIC ULCER HPI This 51-year-old male with a history of diabetes and foot ulcers and amputation presents with some area of irritation and open wound on his right fourth toe distally. He was sent here for evaluation by home health nurse. He is currently being treated for left toe ulcer. Denies any fevers or redness or history of trauma. Patient states that it is not due to see a commis chef for at least 2 monthsPatient admits to history of heavy alcohol use. Patient is an insulin-dependent diabetic without history of headache, vomiting abdominal pain or chest pain, Fever. ROS All systems reviewed and are negative except as per history of present illness. Medications Home Meds Active Scripts Ciprofloxacin Hcl* (Ciprofloxacin Hcl*) 500 Mg Tablet, 500 MG PO BID for 10 Days , TAB Prov:TRIXIE FLOR MD 11/11/16 Cephalexin* (Keflex*) 500 Mg Capsule, 500 MG PO QID for 10 Days, CAP Prov:TRIXIE FLOR MD 11/11/16 Tramadol HCl (Tramadol HCl) 50 Mg Tablet, 50 MG PO Q4 Y for PAIN, #15 TAB Prov:TRIXIE FLOR MD 11/11/16 Lactobacillus Rhamnosus* (Culturelle*) 1 Each Cap.sprink, 1 CAP PO BID for 60 Days, CAP Prov:TI TATE 06/21/16 Vancomycin/0.9 % Sod Chloride (Vancomycin 1 G/200Ml-0.9% NaCl) 1 Gm/200 Ml Froz.piggy, 1 GM IV Q12 for 14 Days Prov:TI TATE 06/21/16 [Thiamine] 100 MG TAB No Conflict Check, 100 MG PO DAILY for 30 Days Prov:TI TATE 06/21/16 Multivitamins* (Theragran*) 1 Tab Tab, 1 TAB PO DAILY for 30 Days, TAB Prov:TI TATE 06/21/16 Folic Acid* (Folic Acid*) 1 Mg Tablet, 1 MG PO DAILY for 30 Days, TAB Prov:IT TATE 06/21/16 Hydrocodone Bit-Acetaminophen (Hydrocodone Bit-APAP) 5-325MG Tablet, 2 TAB PO Q6H Y for SEVERE PAIN LEVEL 7-10 for 60 Days, TAB Prov:TI TATE 06/21/16 Tramadol HCl (Tramadol HCl) 50 Mg Tablet, 50 MG PO Q6 Y for PAIN, #30 TAB Prov:TI TATE 06/21/16 Amlodipine Besylate* (Amlodipine Besylate*) 5 Mg Tablet, 5 MG PO BID for 30 Days , TAB 3 Refills Prov:TI TATE 04/05/16 Losartan Potassium* (Cozaar*) 25 Mg Tablet, 25 MG PO BID for 30 Days, TAB 3 Refills Prov:TI TATE 04/05/16 Insulin Aspart* (Novolog Insulin Pen*) 100 Unit/Ml Soln, 4 UNIT SC WITH MEALS for 30 Days Prov:TI TATE 04/05/16 Reported Medications Gabapentin* (Gabapentin*) 300 Mg Capsule, 300 MG PO BID, #60 CAP 07/21/15 Carbamazepine* (Carbamazepine*) 100 Mg Tab.chew, 200 MG PO QAM, #60 TAB.CHEW 06/26/15 Quetiapine Fumarate* (Seroquel*) 100 Mg Tablet, 100 MG PO QHS, TAB 10/22/14 Fluoxetine Hcl* (Prozac*) 40 Mg Capsule, 40 MG PO QAM, CAP 10/22/14 Phenytoin* Sodium Extended (Dilantin*) 100 Mg Capsule, 300 MG PO BID, CAP 10/22/14 Insulin Lispro (Humalog) 100 U/Ml Cartridge, 0 SC SLIDING SCALE AC, EA 111-150 = 1 UNIT 151-200 = 2 UNITS 201-250 = 4 UNITS 251-300 = 6 UNITS 301-350 = 8 UNITS 351-400 = 10 UNITS 401-450 = 12 UNITS 10/22/14 Allergies Allergies: Coded Allergies: mushroom (Verified Allergy, Severe, 09/05/16) swollen throat, No Known Drug Allergy (Verified Allergy, Unknown, 09/05/16) PMhx/Soc History of Surgery: Yes (right knee sx, TOE AMPUTATION RT FOOT) Anesthesia Reaction: No Hx Neurological Disorder: No Hx Respiratory Disorders: No Hx Cardiac Disorders: No Hx Psychiatric Problems: No Hx Miscellaneous Medical Probl: Yes (DM) Hx Alcohol Use: No (FORMER DRINKER) Hx Substance Use: No (NO LONGER USES ) Hx Tobacco Use: No Smoking Status: Former smoker Physical Exam Vitals Vital Signs Date Time Temp Pulse Resp B/P Pulse Ox O2 Delivery O2 Flow Rate FiO2 11/11/16 14:16 97.8 85 20 140/82 98 Physical Exam Const: []Alert, not ill-appearing. Head: Atraumatic Eyes: Normal Conjunctiva ENT: Normal External Ears, Nose and Mouth. Neck: Full range of motion..~ No meningismus. Resp: Clear to auscultation bilaterally Cardio: Regular rate and rhythm, no murmurs Abd: Soft, non tender, non distended. Normal bowel sounds Skin: No petechiae or rashes Back: No midline or flank tenderness Ext: No cyanosis, or edema. There is some irritation and maceration superficial ulceration of the right fourth toe. Her previous amputations on the second and fifth toe. There is no erythema or warmth or active discharge. There is callus formation around the ulcer. Neur: Awake and alert Psych: Normal Mood and Affect Results 24 hrs Current Medications Medications (Trade) Dose Ordered Sig/Nidia Route PRN Reason Start Time Stop Time Status Last Admin Dose Admin Tramadol HCl (Ultram) 50 mg ONCE ONCE PO 11/11/16 15:30 11/11/16 15:31 DC 11/11/16 16:06 Ibuprofen (Motrin) 600 mg ONCE ONCE PO 11/11/16 15:30 11/11/16 15:31 DC 11/11/16 16:06 Procedures/MDM X-ray Foot 3V Interpreted by me: Bones: No fracture Joints: No dislocation Foreign body: None. Impression-severe degenerative changes the first metatarsal phalangeal and chronic deformities but no signs of acute osteomyelitis.This is discussed verbally with Dr. Moseley, radiology. Throughout the ED course the x-ray was read by another radiologist Dr. Parada who says there is possible demineralization and periostitis consistent with possible osteomyelitis of the affected fourth toe. MRI was suggested by Dr. alaniz but patient does not currently want to stay for MRI as he has pets at home that need his attention. Discussion was hAd with the patient regarding the possible area of osteo- myelitis at the tip of the affected toe. Patient advised that he would like to be treated with oral antibiotics and observe closely at home. He is to be rechecked in a few days when he can arrange his home environment for possible admission to the hospital for further further treatment of this affected tip of his fourth toe. Patient was advised the importance of close follow-up and return sooner for worsening redness or swelling or fevers Patient will be referred to podiatry and amputation prevention center for outpatient follow-up WELL. Currently there is no erythema or warmth or discharge of the toe to suggest SIGNIFICANT OVERLYING SKIN infection but given the differing radiologic findings by 1 out of 2 radiologist will continue close follow-up as an outpatient and admit is necessary for persistent or worsening symptoms over the next few days The right fourth toe was debrided and dressed. Patient was given tramadol for pain. Patient presents with a few day history of an ulcer on his right fourth toe distally. There is no current signs of significant cellulitis, osteomyelitis. Patient will be treated with Keflex and Cipro and wound care and podiatry follow -up. Patient is advised to return for fevers, redness, new worsening symptoms or primary doctor this week. Patient admits to heavy alcohol history for pain and patient is advised to abstain from alcohol seek treatment as necessary.Patient was placed in a right postop shoe was neurovascular intact after the shoe. Departure Diagnosis: Primary Impression: Ulcer Additional Impression: Diabetic foot infection Condition: Stable Patient Instructions: Diabetic Foot Ulcers Referrals: MAURY HOOD ABID N DPM CHUN, [facility] Additional Instructions: No sign of bone infection on x-ray. Recommend wound care. Recommend podiatry regular visits for wound care. Recheck for worsening redness, fevers, new worsening symptoms TRIXIE FLOR MD Nov 11, 2016 16:38
--- NOTE | 2016-11-11 16:42 | RADRPT ---
PROCEDURE: XR right foot. CLINICAL INDICATION: Ulcer. Generalized foot pain TECHNIQUE: AP, lateral and oblique views of the right foot were obtained. COMPARISON: 09/05/2016 FINDINGS: Widening of the metatarsal phalangeal joint of the great toe is again noted with some interval incre ase in periosteal reaction about the first metatarsal head consistent with chronic periostitis. Res ection of the phalanges involving the second and fifth digits is again seen. Periosteal reaction in volving the second metatarsal shaft and majority of the fifth metatarsal is unchanged from the prior exam level as likely chronic periostitis. There is no bone destruction involving the phalanges of the fourth toe concerning for a new area of osteomyelitis, the abnormality greatest in the middle ph alanx. The tarsal bones appear grossly intact. Diffuse soft tissue swelling about the forefoot is similar to the previous examination. There is no evidence of subcutaneous gas . There is no evidenc e for radiopaque foreign body. RPTAT:HJJR IMPRESSION: 1. Compared to the study of the 09/05/2016, there has been development of focal demineralization an d bony destruction involving the fourth phalanges of the right foot concerning for a new area of ost eomyelitis and periostitis. 2. Septic arthritis with widening of the first metatarsal phalangeal joint is again noted with some neural periosteal reaction of the first metatarsal head consistent with chronic periostitis. 3. No significant interval change in chronic periosteal reaction involving the second and fifth met atarsals; findings of prior surgical resection of the second and fifth phalanges again seen. Physician Brayden Date Time Electronically viewed and signed by Physician Brayden on 11/11/2016 16:41 /
== END 2016-11-11 17:05 | disposition home or self-care (01) ==
LOC: FTE 14:05
DX: E11.621 Type 2 diabetes mellitus with foot ulcer (principal); L97.519 Non-pressure chronic ulcer of other part of right foot with unspecified severity; L08.9 Local infection of the skin and subcutaneous tissue, unspecified; Z79.4 Long term (current) use of insulin; Z87.891 Personal history of nicotine dependence
CPT/HCPCS: 73630; Z7502; Z7610

== ENCOUNTER 2016-11-26 13:46 | Emergency (ER) | payer OTHER ==
[~2016-11-26] VITALS: Ht 157.5 cm; Wt 78.0 kg
[~2016-11-26 13:46] MED LIST changes: +CEPH-443 PO; +CIPR500T4 PO
[2016-11-26 14:06] VITALS: Ht 157.5 cm; Wt 78.0 kg
[2016-11-26] MEDS ORDERED: SOD CHLORIDE 0.9% 1,000 ML IV STA (18:06)
--- NOTE | 2016-11-26 18:12 | ERA ---
ER Documentation Chief Complaint Date/Time DATE: 11/26/16 TIME: 18:09 Chief Complaint right foot ulcer x mos HPI Patient is a 51-year-old diabetic male who presents with gradual onset, constant , progressive right foot swelling and pain for 2 months. He was seen in the ER 15 days ago and had an x-ray suggestive of osteomyelitis. The patient is already had amputation of 2 toes in his right foot. He was advised to obtain an MRI and be admitted to the hospital, but would not stay, so was discharged on unknown antibiotic. He has not returned to the hospital since that time, but has had a wound care nurse. He states that the pain is been getting worse. He has been having chills and night sweats. He denies measured fever or vomiting. ROS All systems reviewed and are negative except as per history of present illness. Medications Home Meds Active Scripts Lactobacillus Rhamnosus* (Culturelle*) 1 Each Cap.sprink, 1 CAP PO BID for 60 Days, CAP Prov:TI TATE 06/21/16 Multivitamins* (Theragran*) 1 Tab Tab, 1 TAB PO DAILY for 30 Days, TAB Prov:TI TATE 06/21/16 Folic Acid* (Folic Acid*) 1 Mg Tablet, 1 MG PO DAILY for 30 Days, TAB Prov:TI TATE 06/21/16 Amlodipine Besylate* (Amlodipine Besylate*) 5 Mg Tablet, 5 MG PO BID for 30 Days , TAB 3 Refills Prov:TI TATE 04/05/16 Losartan Potassium* (Cozaar*) 25 Mg Tablet, 25 MG PO BID for 30 Days, TAB 3 Refills Prov:TI TATE 04/05/16 Reported Medications Insulin Glargine* (Lantus*) 100 Unit/Ml Soln, 20 UNIT SC QHS, #1 VIAL 11/26/16 Hydrocodone/Acetaminophen (Wagener 10-325 Tablet) 1 Each Tablet, 1 EACH PO Q6H Y for PRN, TAB 11/26/16 Gabapentin* (Gabapentin*) 300 Mg Capsule, 300 MG PO BID, #60 CAP 07/21/15 Carbamazepine* (Carbamazepine*) 100 Mg Tab.chew, 200 MG PO QAM, #60 TAB.CHEW 06/26/15 Quetiapine Fumarate* (Seroquel*) 100 Mg Tablet, 100 MG PO QHS, TAB 10/22/14 Fluoxetine Hcl* (Prozac*) 40 Mg Capsule, 40 MG PO NEEDED, CAP 10/22/14 Phenytoin* Sodium Extended (Dilantin*) 100 Mg Capsule, 300 MG PO BID, CAP 10/22/14 Insulin Lispro (Humalog) 100 U/Ml Cartridge, 0 SC SLIDING SCALE AC, EA 111-150 = 1 UNIT 151-200 = 2 UNITS 201-250 = 4 UNITS 251-300 = 6 UNITS 301-350 = 8 UNITS 351-400 = 10 UNITS 401-450 = 12 UNITS 10/22/14 Discontinued Scripts Ciprofloxacin Hcl* (Ciprofloxacin Hcl*) 500 Mg Tablet, 500 MG PO BID for 10 Days , TAB Prov:TRIXIE FLOR MD 11/11/16 Cephalexin* (Keflex*) 500 Mg Capsule, 500 MG PO QID for 10 Days, CAP Prov:TRIXIE FLOR MD 11/11/16 Tramadol HCl (Tramadol HCl) 50 Mg Tablet, 50 MG PO Q4 Y for PAIN, #15 TAB Prov:TRIXIE FLOR MD 11/11/16 Vancomycin/0.9 % Sod Chloride (Vancomycin 1 G/200Ml-0.9% NaCl) 1 Gm/200 Ml Froz.piggy, 1 GM IV Q12 for 14 Days Prov:TI TATE 06/21/16 [Thiamine] 100 MG TAB No Conflict Check, 100 MG PO DAILY for 30 Days Prov:TI TATE 06/21/16 Hydrocodone Bit-Acetaminophen (Hydrocodone Bit-APAP) 5-325MG Tablet, 2 TAB PO Q6H Y for SEVERE PAIN LEVEL 7-10 for 60 Days, TAB Prov:TI TATE 06/21/16 Tramadol HCl (Tramadol HCl) 50 Mg Tablet, 50 MG PO Q6 Y for PAIN, #30 TAB Prov:TI TATE 06/21/16 Insulin Aspart* (Novolog Insulin Pen*) 100 Unit/Ml Soln, 4 UNIT SC WITH MEALS for 30 Days Prov:TI TATE 04/05/16 Allergies Allergies: Coded Allergies: mushroom (Verified Allergy, Severe, 11/26/16) swollen throat, No Known Drug Allergy (Verified Allergy, Unknown, 11/26/16) PMhx/Soc Past medical history: Hyperlipidemia, hypertension, insulin-dependent diabetes Past surgical history: Amputation of toes of right foot, internal fixation of right lower leg Social history: Denies current alcohol, tobacco or illicit drugs History of Surgery: Yes (right knee sx, TOE AMPUTATION RT FOOT) Anesthesia Reaction: No Hx Neurological Disorder: No Hx Respiratory Disorders: No Hx Cardiac Disorders: No Hx Psychiatric Problems: No Hx Miscellaneous Medical Probl: Yes (DM) Hx Alcohol Use: No (FORMER DRINKER) Hx Substance Use: No Hx Tobacco Use: No Smoking Status: Former smoker FmHx Noncontributory Physical Exam Vitals Vital Signs Date Time Temp Pulse Resp B/P Pulse Ox O2 Delivery O2 Flow Rate FiO2 11/26/16 21:54 80 16 182/99 97 Room Air 11/26/16 14:06 98.1 97 18 143/97 99 Physical Exam Const: Alert, no acute distress Head: Atraumatic Eyes: Normal Conjunctiva, No pallor, no icterus ENT: Normal External Ears, Nose and Mouth. Tacky mucous membranes Neck: Full range of motion. No meningismus. Resp: Clear to auscultation bilaterally, No wheezes, no rales Cardio: Regular rate and rhythm, no murmurs Abd: Soft, non tender, non distended. Skin: No petechiae or rashes Back: No midline or flank tenderness Ext: No cyanosis, Missing right second and third toes. Chronic skin changes to right fourth toe with significant edema. 1+ pitting edema to mid fish. Positive warmth and erythema to the right foot. No bulla or discharge. Faint foul odor. Neur: Awake and alert, Cranial nerves II through XII intact bilaterally, strength and sensation full in 4 extremities. Psych: Normal Mood and Affect Result Diagram: 11/26/16184911/26/161849 Results 24 hrs Laboratory Tests Test 11/26/16 18:44 11/26/16 18:50 11/26/16 21:57 Bedside Glucose 330mg/dL 220mg/dL White Blood Count 10.610^3/ul Red Blood Count 4.7710^6/ul Hemoglobin 12.5g/dl Hematocrit 38.2% Mean Corpuscular Volume 80.1fl Mean Corpuscular Hemoglobin 26.2pg Mean Corpuscular Hemoglobin Concent 32.7g/dl Red Cell Distribution Width 13.1% Platelet Count 05697^3/UL Mean Platelet Volume 11.0fl Neutrophils % 80.7% Lymphocytes % 8.8% Monocytes % 7.2% Eosinophils % 2.5% Basophils % 0.4% Nucleated Red Blood Cells % 0.0/100WBC Neutrophils # 8.510^3/ul Lymphocytes # 0.910^3/ul Monocytes # 0.810^3/ul Eosinophils # 0.310^3/ul Basophils # 0.010^3/ul Nucleated Red Blood Cells # 0.010^3/ul Prothrombin Time 12.6Sec Prothrombin Time Ratio 1.0 INR International Normalized Ratio 0.94 Activated Partial Thromboplast Time 31.0Sec Urine Color STRAW Urine Clarity CLEAR Urine pH 5.0 Urine Specific [place] 1.020 Urine Ketones NEGATIVEmg/dL Urine Nitrite NEGATIVEmg/dL Urine Bilirubin NEGATIVEmg/dL Urine Urobilinogen NEGATIVEmg/dL Urine Leukocyte Esterase NEGATIVELeu/ul Urine Hemoglobin NEGATIVEmg/dL Urine Glucose 3+mg/dL Urine Total Protein NEGATIVEmg/dl Sodium Level 132mmol/L Potassium Level 4.4mmol/L Chloride Level 94mmol/L Carbon Dioxide Level 26mmol/L Anion Gap 16 Blood Urea Nitrogen 28mg/dl Creatinine 1.09mg/dl Glucose Level 308mg/dl Lactic Acid Level 1.3mmol/L Calcium Level 10.1mg/dl Current Medications Medications (Trade) Dose Ordered Sig/Nidia Route PRN Reason Start Time Stop Time Status Last Admin Dose Admin Sodium Chloride 1,000 ml @ 1,000 mls/hr Q1H STAT IV 11/26/16 18:06 11/26/16 19:05 DC 11/26/16 19:48 Vancomycin HCl 250 ml @ 125 mls/hr ONCE IVPB 11/26/16 18:30 11/26/16 20:29 DC 11/26/16 20:30 Piperacillin Sod/ Tazobactam Sod (Zosyn 3.375gm/ 100 ml (Pmx)) 100 ml @ 200 mls/hr ONCE ONCE IVPB 11/26/16 18:30 11/26/16 18:59 DC 11/26/16 19:47 Acetaminophen/ Hydrocodone Bitart (Wagener (5/325)) 1 tab ONCE ONCE PO 11/26/16 18:30 11/26/16 18:31 DC 11/26/16 19:47 Insulin Human Regular (Humulin R) 4 unit ONCE ONCE SC 11/26/16 20:30 11/26/16 20:34 DC 11/26/16 22:02 Miscellaneous Information 1 ea NOTE XX 11/26/16 21:00 Glucose (Glutose) 15 gm Q15M PRN PO DECREASED GLUCOSE 11/26/16 21:00 Glucose (Glutose) 22.5 gm Q15M PRN PO DECREASED GLUCOSE 11/26/16 21:00 Dextrose (D50w Syringe) 25 ml Q15M PRN IV DECREASED GLUCOSE 11/26/16 21:00 Dextrose (D50w Syringe) 50 ml Q15M PRN IV DECREASED GLUCOSE 11/26/16 21:00 Glucagon (Glucagen) 1 mg Q15M PRN IM DECREASED GLUCOSE 11/26/16 21:00 Glucose (Glutose) 15 gm Q15M PRN BUCCAL DECREASED GLUCOSE 11/26/16 21:00 Morphine Sulfate (morphine) 4 mg ONCE STAT IV 11/26/16 22:47 11/26/16 22:56 DC 11/26/16 23:18 Morphine Sulfate (morphine) 4 mg STK-MED ONCE .ROUTE 11/26/16 22:52 11/26/16 22:53 DC Procedures/MDM MDM: Patient is a 51-year-old male with known osteomyelitis of the fourth toe of his right foot. He was seen 2 weeks ago and refused MRI and admission at that time, but is now returning with worsening pain and swelling to the foot. He has no signs of sepsis. His labs show hyperglycemia without evidence of DKA. He does have mild dehydration on labs. He will be admitted for MRI to evaluate extent of osteomyelitis, surgical consultation for possible need for amputation, and for infectious disease workup and treatment. He was given IV fluids and antibiotics in the ER. This was discussed with Dr. Tate, who advises that the patient will need to be transferred to [facility] due to insurance status. Transfer is in progress, but accepting MD has not yet contacted us. Departure Diagnosis: Primary Impression: Osteomyelitis of toe of right foot Additional Impression: Diabetic foot infection Condition: ABBY Lundberg MD Nov 26, 2016 18:12
[2016-11-26] MEDS ORDERED: HYDROCODONE/APAP (5/325) TAB PO ONE (18:30)
[2016-11-26] MEDS ORDERED: PIPER-TAZO 3.375 GM IV (PMX) 100 ML IVPB ONE (18:30)
[2016-11-26] MEDS ORDERED: VANCOMYCIN 1 GM (PMX) 250 ML IVPB SCH (18:30)
[2016-11-26] MEDS ORDERED: HYDR-902 PO (18:34)
[2016-11-26] MEDS ORDERED: LANT3I SC (18:40)
[2016-11-26 19:14] LABS: BASOPHILS % 0.4 % (0.0-2.0); EOSINOPHILS # 0.3 10^3/ul (0.0-0.5); EOSINOPHILS % 2.5 % (0.0-7.0); HEMATOCRIT 38.2 % (42.0-52.0); HEMOGLOBIN 12.5 g/dl (14.0-18.0); LYMPHOCYTES # 0.9 10^3/ul (0.8-2.9); LYMPHOCYTES % 8.8 % (15.0-51.0); MEAN CORPUSCULAR HEMOGLOBIN 26.2 pg (29.0-33.0); MEAN CORPUSCULAR HGB CONC 32.7 g/dl (32.0-37.0); MEAN CORPUSCULAR VOLUME 80.1 fl (82.0-101.0); MONOCYTE # 0.8 10^3/ul (0.3-0.9); MONOCYTES % 7.2 % (0.0-11.0); NEUTROPHIL # 8.5 10^3/ul (1.6-7.5); NEUTROPHILS % 80.7 % (39.0-77.0); PLATELET COUNT 383 10^3/UL (140-415); RED BLOOD COUNT 4.77 10^6/ul (4.70-6.10); RED CELL DISTRIBUTION WIDTH 13.1 % (11.5-14.5); WHITE BLOOD COUNT 10.6 10^3/ul (4.8-10.8)
[2016-11-26 19:23] LABS: ADD UMIC NO; UR ASCORBIC ACID NEGATIVE (NEGATIVE); UR BILIRUBIN (Dip) NEGATIVE (NEGATIVE); UR BLOOD (Dip) NEGATIVE (NEGATIVE); UR CLARITY CLEAR (CLEAR); UR COLOR STRAW (YELLOW); UR GLUCOSE (Dip) 3+ mg/dL (NEGATIVE); UR KETONES (Dip) NEGATIVE (NEGATIVE); UR LEUKOCYTE ESTERASE (Dip) NEGATIVE Leu/ul (NEGATIVE); UR NITRITE (Dip) NEGATIVE (NEGATIVE); UR TOTAL PROTEIN (Dip) NEGATIVE (NEGATIVE); UR UROBILINOGEN (Dip) NEGATIVE (NEGATIVE)
--- NOTE | 2016-11-26 19:36 | RADRPT ---
PROCEDURE: Ultrasound of the right lower extremity venous system. CLINICAL INDICATION: Right leg pain and swelling, deep venous thrombosis TECHNIQUE: Lebron scale with and without compression, color doppler, spectral doppler of the venous system of the right lower extremity was performed. Venous augmentation maneuvers were utilized. COMPARISON: 06/18/2016 FINDINGS: Common femoral vein: Patent. Femoral vein: Patent. Popliteal vein: Patent. Calf veins: Patent. No soft tissue abnormalities are identified. IMPRESSION: No evidence of a deep vein thrombosis within the right lower extremity. RPTAT: AADD .Sergio Latham MD, MD Date Time Electronically viewed and signed by .Sergio Latham MD, MD on 11/26/2016 19:35 .B/
[2016-11-26 19:40] LABS: CALCIUM 10.1 mg/dl (8.4-10.2); CREATININE 1.09 mg/dl (0.61-1.24); POTASSIUM 4.4 mmol/L (3.5-5.1)
[2016-11-26] MEDS ORDERED: INSULIN REGULAR, HUMAN 100 UNIT/1 ML 3ML VIAL SC ONE (20:30)
[2016-11-26] MEDS ORDERED: GLUCOSE GEL 15 GRAM TUBE PO PRN ×2 (21:00)
[2016-11-26] MEDS ORDERED: GLUCAGON 1 MG INJ IM PRN (21:00)
[2016-11-26] MEDS ORDERED: GLUCOSE GEL 15 GRAM TUBE BUCCAL PRN (21:00)
[2016-11-26] MEDS ORDERED: DEXTROSE 50% 50 ML SYRINGE IV PRN ×2 (21:00)
--- NOTE | 2016-11-26 22:19 | RADRPT ---
PROCEDURE: MR Foot. CLINICAL INDICATION: Right foot ulcerations an infection involving the fourth and fifth digits. TECHNIQUE: Noncontrast MRI examination of the right forefoot from the midfoot to the toes, with axi al, sagittal and coronal images. T1 and STIR sequences employed. COMPARISON: Plain film examination of the right foot dated 11/11/2016. Prior MRI of the right foot dated 09/05/2016. FINDINGS: Surgical absence of the right second toe and absence of the right fifth toe with resorption of the d istal right fifth metatarsal. Advanced erosive changes seen at the first metatarsophalangeal joint. Since the prior MRI examination dated 09/05/2016 absence of right fifth toe with resorption of the d istal right fifth metatarsal are similar in appearance. Findings suggest sequela of chronic osteomye litis with osseous destruction and resorption. These findings are evident on plain film examination dated 11/11/2016. Since prior MRI examination dated 09/05/2016 there is destruction and absence of the proximal phalan x of the fourth toe, with likely partial resorption of the middle and distal phalanges of the toe. F indings suggest sequela of chronic osteomyelitis. At the expected location of the proximal phalanx o f the fourth toe there is a fluid collection measuring about 31 x 29 mm, suggesting an abscess. IV c ontrast enhanced MRI examination would be more sensitive and specific for identifying an abscess. Since prior MRI examination dated 09/05/2016 there is at least partial interval healing of previousl y seen fracture at the distal metaphysis of the second metatarsal, with increased periosteal reactio n over the distal diaphysis of the fourth metatarsal. Previously seen pseudarthrosis at the distal m etaphysis of the second metatarsal appears resolved. There is a new nondisplaced fracture at the pro ximal metaphysis of the second metatarsal over interval since 09/05/2016. The third and fourth metatarsals demonstrate decreased T1-weighted signal and increased STIR signal over interval since 09/05/2016, suspicious for osteomyelitis, although no definite soft tissue defec t is seen overlying this region. Additionally, similar signal changes are seen in the proximal remna nt of the fifth metatarsal, also suspicious for osteomyelitis. Since prior MRI examination dated 09/05/2016 there is persistent joint space narrowing at the first metatarsophalangeal joint with eburnation at the partially eroded head of the first metatarsal and a t the partially eroded base of the first proximal phalanx. Findings suggest sequela of chronic osteo myelitis and septic joint. There is a small amount of joint fluid at the first metatarsophalangeal j oint, which is decreased over the interval. The joint appears to be filled with debris. IMPRESSION: 1. Interval destruction and absence of the fourth proximal phalanx, with likely abscess in the proxi mal fourth toe. 2. Osteomyelitis likely involves the mid and distal phalanges of the fourth toe. 3. Possible osteomyelitis at the base of the third fourth and fifth metacarpals. 4. Interval at least partial healing of fracture of the distal second metatarsal, with new fracture at the base of the second metatarsal. 5. Persistent destruction of the first metatarsophalangeal joint suggesting sequela of osteomyeliti s and septic joint, similar in appearance to prior examination, although there is decreased fluid wi thin the joint space on today's examination. 6. IV contrast enhanced MRI examination of the right foot may be of further use. RPTAT: [facility] Physician Marimar Date Time Electronically viewed and signed by Physician Marimar on 11/26/2016 22:18 RS/
[2016-11-26 22:25] LABS: INR 0.94; PROTIME 12.6 Sec (12.2-14.2)
[2016-11-26] MEDS ORDERED: morphine 4 MG/ML VIAL IV STA (22:47)
[2016-11-26] MEDS ORDERED: morphine 4 MG/ML VIAL ONE (22:52)
[2016-11-27] MEDS ORDERED: AMLODIPINE 5 MG TAB PO ONE
[2016-11-27] MEDS ORDERED: hydrALAzine 20 MG INJ IV ONE (02:00)
[2016-11-27 02:25] VITALS: BP 151/82; PULSE 98; RESP 18; TEMP 98.3
== END 2016-11-27 02:26 | disposition short-term general hospital (02) ==
LOC: E/R 13:46
DX: M86.9 Osteomyelitis, unspecified (principal); E11.621 Type 2 diabetes mellitus with foot ulcer; L97.519 Non-pressure chronic ulcer of other part of right foot with unspecified severity; I10 Essential (primary) hypertension; R10.9 Unspecified abdominal pain; Z79.4 Long term (current) use of insulin
CPT/HCPCS: 73718; 80048; 81003; 82962; 83605; 85025; 85610; 85730; 87040; 87086; 93971; 96372; 96374; 96375; J0360; J1815; J2270; J2543; J3370; J7030; Z7502; Z7610

== ENCOUNTER 2017-04-29 13:52 | Emergency (ER) | END 2017-04-29 15:53 | disposition home or self-care (01) ==

== ENCOUNTER 2017-08-29 13:06 | Emergency (ER) | END 2017-08-29 20:41 | disposition left against medical advice (07) ==

== ENCOUNTER 2017-09-30 12:08 | Emergency (ER) | END 2017-09-30 13:06 | disposition home or self-care (01) ==

== ENCOUNTER 2017-12-03 14:33 | Inpatient (IN) | END 2017-12-27 15:35 | disposition home health service (06) | DRG 871 ==

== ENCOUNTER 2018-03-02 11:02 | Emergency (ER) | payer OTHER ==
[~2018-03-02] VITALS: Ht 170.2 cm; Wt 76.1 kg
[~2018-03-02 11:02] MED LIST changes: +ACET325T33 PO; -AMLO-145 PO; +ASPI-817 PO; +CARB-160 PO; -CARB100T2 PO; -CEPH-443 PO; -CIPR500T4 PO; -HYDR-3498 PO; +HYDR-3980 PO; -INSU100C SC; +Insulin Glargine SC; +LACT1CAP28 PO; -LACT1CAP57 PO; -LOSA25TA2 PO; +NIFE90TA PO; +SAN30GM TOP; +THIA100T56 PO; -TRAM50TA2 PO; -Thiamine PO; -VANC1FRO2 IV
[2018-03-02 11:04] VITALS: Ht 170.2 cm; Wt 76.1 kg
--- NOTE | 2018-03-02 11:32 | ERD ---
ER Documentation Chief Complaint Chief Complaint right foot diabetic ulcer HPI 52-year-old man referred by medical clinic for pain control. Patient has a long history of chronic bilateral foot osteomyelitis and is status post right forefoot amputation. He was seen and evaluated at this hospital a few weeks ago and treated with 6 weeks of IV antibiotics for his chronic osteomyelitis and foot ulceration. There is been no recent fevers or chills, no increased discharge from the right foot, no cough or URI symptoms, no complaints of chest pain or shortness of breath. Patient states he has been sober for the last 6 weeks. ROS All systems reviewed and are negative except as per history of present illness. Medications Home Meds Active Scripts Naproxen* (Naprosyn*) 500 Mg Tablet, 500 MG PO BID PRN for PAIN AND/OR INFLAMMATION, #30 TAB Prov:RYAN RODRÍGUEZ MD 03/02/18 Sulfamethoxazole/Trimethoprim* (Bactrim Ds* Tablet) 1 Each Tablet, 1 TAB PO BID, #20 TAB Prov:RYAN RODRÍGUEZ MD 03/02/18 Cephalexin* (Keflex*) 500 Mg Capsule, 500 MG PO QID for 10 Days, CAP Prov:RYAN RODRÍGUEZ MD 03/02/18 Nifedipine (Procardia Xl) 90 Mg Tab.er.24, 90 MG PO DAILY for 10 Days, #15 TAB 1 Refill Prov:LISA PABON MD 12/26/17 Insulin Aspart* (Novolog Insulin Pen*) 100 Unit/Ml Soln, 5 UNIT SC WITH MEALS for 15 Days, #45 1 Refill Prov:LISA PABON MD 12/24/17 Aspirin* (Aspirin* EC) 81 Mg Tablet.dr, 81 MG PO DAILY for 14 Days otc Prov:LISA PABON MD 12/24/17 Reported Medications Insulin Glargine,Hum.rec.anlog (Basaglar Kwikpen U-100) 100 Unit/1 Ml Insuln.pen, 9 UNIT SC QHS, EA 03/02/18 Gabapentin* (Gabapentin*) 100 Mg Capsule, 200 MG PO BID, #180 CAP 03/02/18 Carbamazepine* (Tegretol Xr*) 200 Mg Tab.sr.12h, 200 MG PO Q12, TAB.SA 08/29/17 Phenytoin* Sodium Extended (Dilantin*) 100 Mg Capsule, 300 MG PO BID, CAP 08/29/17 Multivitamins* (Theragran*) 1 Tab Tab, 1 TAB PO DAILY, TAB 08/29/17 Folic Acid* (Folic Acid*) 1 Mg Tablet, 1 MG PO DAILY, TAB 08/29/17 Fluoxetine Hcl* (Prozac*) 40 Mg Capsule, 40 MG PO DAILY, CAP 08/29/17 Discontinued Reported Medications Quetiapine Fumarate* (Seroquel*) 100 Mg Tablet, 100 MG PO HS, #30 TAB 08/29/17 Hydrocodone/Acetaminophen (Jakin 10-325 Tablet) 1 Each Tablet, 1 EACH PO NEEDED, TAB 08/29/17 Gabapentin* (Gabapentin*) 300 Mg Capsule, 300 MG PO BID, #60 CAP 08/29/17 Discontinued Scripts [Insulin Glargine] 100 UNITS/ML SOLN No Conflict Check, 9 UNITS SC DAILY@2000 for 10 Days, #10 Prov:LISA PABON MD 12/25/17 Thiamine* (Vitamin B-1*) 100 Mg Tablet, 100 MG PO DAILY for 30 Days, #30 TAB 2 Refills Prov:LISA PABON MD 12/24/17 Collagenase* (Santyl*) 30 Gm Oint..gm., 1 APPLIC TOP DAILY for 10 Days, #10 4 Refills Apply as directed Prov:LISA PABON MD 12/24/17 [Insulin Glargine] 100 UNITS/ML SOLN No Conflict Check, 15 UNITS SC DAILY@2000 for 14 Days, #15 Prov:LISA PABON MD 12/24/17 Lactobacillus Rhamnosus GG (Culturelle) 1 Each Capsule, 1 CAP PO BID for 60 Days, #30 CAP 4 Refills otc Prov:LISA PABON MD 12/24/17 Acetaminophen* (Tylenol*) 325 Mg Tablet, 650 MG PO Q6H PRN for PAIN LEVEL 1-3 OR FEVER for 1 Day, TAB Prov:LISA PABON MD 12/24/17 Allergies Allergies: Coded Allergies: mushroom (Verified Allergy, Severe, 03/02/18) swollen throat, No Known Drug Allergy (Verified Allergy, Unknown, 03/02/18) PMhx/Soc Chronic bilateral foot osteomyelitis and right forefoot amputation status post 6 weeks of IV antibiotics, history of anemia and renal failure, diabetes mellitus type 2, hypertension, chronic alcoholism, seizure disorder, depression History of Surgery: Yes (R FOOT TOE AMPUTATION 2017, ) Anesthesia Reaction: Yes Hx Neurological Disorder: Yes (SEIZURE D/O) Hx Respiratory Disorders: No Hx Cardiac Disorders: Yes (HIGH BLOOD PRESSURE) Hx Psychiatric Problems: No Hx Miscellaneous Medical Probl: Yes (seizure disorder, EtOH abuse, DM, HAZEL, L great toe osteomyelitis, HTN) Hx Alcohol Use: Yes Hx Substance Use: No Hx Tobacco Use: No FmHx Family History: No diabetes Physical Exam Vitals Vital Signs Date Temp Pulse Resp B/P (MAP) Pulse Ox O2 O2 Flow FiO2 Time Delivery Rate 03/02/18 93 20 98 21 13:22 03/02/18 97.3 117 20 191/81 96 11:04 (117) Physical Exam Const: No acute distress, afebrile Head: Atraumatic Eyes: Normal Conjunctiva ENT: Normal External Ears, Nose and Mouth. Neck: Full range of motion. No meningismus. Resp: Clear to auscultation bilaterally Cardio: Regular rate and rhythm, no murmurs Abd: Soft, non tender, non distended. Normal bowel sounds Skin: No petechiae or rashes Back: No midline or flank tenderness Ext: No cyanosis, or edema. Right forefoot amputation the stump appears clean without wound dehiscence although there is a right plantar foot pressure ulcer with mild serosanguineous discharge. No purulent discharge noted, no surrounding skin induration or erythema noted, no foul odor noted. Neur: Awake and alert x3, no focal deficits or facial asymmetry Psych: Normal Mood and Affect Result Diagram: 03/02/18 1155 03/02/18 1410 Results 24 hrs Laboratory Tests Test 03/02/18 11:55 03/02/18 14:10 03/02/18 14:47 White Blood Count 10.7 10^3/ul Red Blood Count 2.79 10^6/ul Hemoglobin 7.8 g/dl Hematocrit 24.0 % Mean Corpuscular Volume 86.0 fl Mean Corpuscular Hemoglobin 28.0 pg Mean Corpuscular 32.5 g/dl Hemoglobin Concent Red Cell Distribution Width 14.4 % Platelet Count 519 10^3/UL Mean Platelet Volume 9.7 fl Immature Granulocytes % 0.700 % Neutrophils % 82.6 % Lymphocytes % 8.3 % Monocytes % 5.8 % Eosinophils % 2.0 % Basophils % 0.6 % Nucleated Red Blood Cells % 0.0 /100WBC Immature Granulocytes # 0.070 10^3/ul Neutrophils # 8.8 10^3/ul Lymphocytes # 0.9 10^3/ul Monocytes # 0.6 10^3/ul Eosinophils # 0.2 10^3/ul Basophils # 0.1 10^3/ul Nucleated Red Blood Cells # 0.0 10^3/ul Sodium Level 141 mmol/L 137 mmol/L Potassium Level 5.6 mmol/L 4.4 mmol/L Chloride Level 102 mmol/L 104 mmol/L Carbon Dioxide Level 27 mmol/L 23 mmol/L Anion Gap 12 10 Blood Urea Nitrogen 29 mg/dl 29 mg/dl Creatinine 1.66 mg/dl 1.56 mg/dl Est Glomerular Filtrat 44 mL/min 47 mL/min Rate mL/min Glucose Level 254 mg/dl 198 mg/dl Calcium Level 9.5 mg/dl 9.3 mg/dl Total Bilirubin 0.0 mg/dl Direct Bilirubin 0.00 mg/dl Indirect Bilirubin 0.0 mg/dl Aspartate Amino 61 IU/L Transf (AST/SGOT) Alanine 44 IU/L Aminotransferase (ALT/SGPT) Alkaline Phosphatase 244 IU/L Total Protein 7.3 g/dl Albumin 4.1 g/dl Globulin 3.20 g/dl Albumin/Globulin Ratio 1.28 Lipase 34 U/L Bedside Glucose 194 mg/dL Current Medications Medications Dose Sig/Nidia Start Time Status Last (Trade) Ordered Route PRN Stop Time Admin Dose Reason Admin Oxycodone/ 1 tab ONCE ONCE 03/02/18 DC 03/02/18 Acetaminophen PO 12:00 12:11 (Percocet 03/02/18 (5/ 325)) 12:01 Albuterol 10 mg ONCE STAT 03/02/18 DC 03/02/18 (Proventil HHN 13:09 13:21 0.083% (Neb)) 03/02/18 13:11 Oxycodone/ 1 tab ONCE ONCE 03/02/18 DC 03/02/18 Acetaminophen PO 14:00 14:59 (Percocet 03/02/18 (5/ 325)) 14:01 Procedures/MDM I administered Percocet 1 tablet p.o. x2 for pain control. Electrolytes initially revealed mild hyperkalemia 5.6, this may be lab error although I did treat him with albuterol 10 mg via nebulizer and repeat BMP was unremarkable with a normal potassium. CBC did reveal anemia with a hemoglobin of 7.8, although patient does have a history of anemia and he denies dizziness or weakness at this time and he is not a candidate for PRBC transfusion Right lower extremity ultrasound was performed given his complaints of right calf pain and it was negative for deep vein thrombosis. We attempted to call and contact his medical clinic multiple times and left multiple messages although no one returned the call. Also, I spoke to his health insurance directed on-call physician regarding his symptoms and ED workup, we found no indication to admit the patient and he recommended continued outpatient management with oral antibiotics and wound care clinic follow-up. Differential diagnoses considered, included but not limited to acute coronary syndrome, pulmonary embolism, aortic dissection, abdominal aortic aneurysm, sepsis, stroke, meningitis, encephalitis, pneumonia, appendicitis, cholecystitis, bowel obstruction, pyelonephritis, nephrolithiasis, cystitis, as well as metabolic, hematologic, and electrolyte abnormalities. As well as abscess, cellulitis, fractures, and dislocations. Patient feels much better at this time, and vital signs are normal, symptoms antony ve improved. I did give strict instructions to return to the ED if symptoms continue or worsen, patient will otherwise follow-up with primary care physician. Patient understood instructions and agreed to plan. Disclaimer: Inadvertent spelling and grammatical errors are likely due to EHR/dictation software use and do not reflect on the overall quality of patient care. Also, please note that the electronic time recorded on this note does not necessarily reflect the actual time of the patient encounter. Departure Diagnosis: Primary Impression: Osteomyelitis Osteomyelitis type: subacute Osteomyelitis location: foot Laterality: right Qualified Codes: M86.271 - Subacute osteomyelitis, right ankle and foot Additional Impressions: Foot ulcer Laterality: right Non-pressure ulcer stage: limited to breakdown of skin Qualified Codes: L97.511 - Non-pressure chronic ulcer of other part of right foot limited to breakdown of skin Anemia Anemia type: unspecified type Qualified Codes: D64.9 - Anemia, unspecified Chronic kidney disease Chronic kidney disease stage: stage 3 (moderate) Qualified Codes: N18.3 - Chronic kidney disease, stage 3 (moderate) Condition: Good RYAN RODRÍGUEZ MD Mar 02, 2018 11:32
[2018-03-02] MEDS ORDERED: OXYCODONE/ACETAMINOPHEN (5/325) TAB PO ONE ×2 (12:00→14:00)
[2018-03-02] MEDS ORDERED: ALBUTEROL 0.083% (NEB) 2.5 MG/3 ML AMP HHN STA (13:09)
[2018-03-02] MEDS ORDERED: GABA100C14 PO (14:51)
[2018-03-02] MEDS ORDERED: INSU100I33 SC (14:52)
[2018-03-02] MEDS ORDERED: CEPH-443 PO (14:59)
[2018-03-02] MEDS ORDERED: NAPR-985 PO (14:59)
[2018-03-02] MEDS ORDERED: SULF1TAB31 PO (14:59)
[2018-03-02 15:35] VITALS: BP 161/79; PULSE 98; RESP 16
== END 2018-03-02 15:35 | disposition home or self-care (01) ==
LOC: E/R 11:02
DX: M86.271 Subacute osteomyelitis, right ankle and foot (principal); L97.511 Non-pressure chronic ulcer of other part of right foot limited to breakdown of skin; D64.9 Anemia, unspecified; I12.9 Hypertensive chronic kidney disease with stage 1 through stage 4 chronic kidney disease, or unspecified chronic kidney disease; N18.3 Chronic kidney disease, stage 3 (moderate); E11.22 Type 2 diabetes mellitus with diabetic chronic kidney disease; R05 Cough; Z79.4 Long term (current) use of insulin; Z79.82 Long term (current) use of aspirin
CPT/HCPCS: 36415; 80048; 80053; 82962; 83690; 85025; 87040; 87070; 93971; 94664; Z7502; Z7610

== ENCOUNTER 2018-05-21 12:57 | Inpatient (IN) | payer OTHER ==
[~2018-05-21] VITALS: Ht 170.2 cm; Wt 77.5 kg
[~2018-05-21 12:57] MED LIST changes: -ACET325T33 PO; +CEPH-443 PO; +GABA100C14 PO; -GABA300C16 PO; -HYDR-3980 PO; +INSU100I33 SC; -Insulin Glargine SC; -LACT1CAP28 PO; +NAPR-985 PO; -QUET100T PO; -SAN30GM TOP; +SULF1TAB31 PO; -THIA100T56 PO
[2018-05-21] MEDS ORDERED: SOD CHLORIDE 0.9% 500 ML IV STA (15:42)
[2018-05-21] MEDS ORDERED: ALBUTEROL 0.5% (NEB) 2.5 MG/0.5 ML AMP INH STA (16:24)
[2018-05-21] MEDS ORDERED: CEFEPIME 1GM/50 ML (PMX) 50 ML IVPB ONE (16:30)
[2018-05-21] MEDS ORDERED: CALCIUM GLUCONATE 10% 1 GM in DEXTROSE 5% 100 ML IVPB ONE (16:30)
[2018-05-21] MEDS ORDERED: VANCOMYCIN 1 GM (PMX) 250 ML IVPB ONE (16:30)
--- NOTE | 2018-05-21 16:31 | ERD ---
ER Documentation Chief Complaint Chief Complaint Sent from for evaluation right foot cellulitis HPI This is a 53-year-old man with a history of bilateral foot osteomyelitis and right forefoot amputation who was referred here by amputation prevention center for worsening right plantar foot ulcer despite using 1 month of oral anti biotics. They recommended admission for wound debridement and IV antibiotics because patient's symptoms were not improving as an outpatient. He states he has had recent increasing swelling and discharge and increasing right foot pain. Patient denies chest pain or shortness of breath, no weight loss, no vomiting or diarrhea. ROS All systems reviewed and are negative except as per history of present illness. Medications Home Meds Active Scripts Naproxen* (Naprosyn*) 500 Mg Tablet, 500 MG PO BID PRN for PAIN AND/OR INFLAMMATION, #30 TAB Prov:RYAN RODRÍGUEZ MD 03/02/18 Sulfamethoxazole/Trimethoprim* (Bactrim Ds* Tablet) 1 Each Tablet, 1 TAB PO BID, #20 TAB Prov:RYAN RODRÍGUEZ MD 03/02/18 Cephalexin* (Keflex*) 500 Mg Capsule, 500 MG PO QID for 10 Days, CAP Prov:RYAN RODRÍGUEZ MD 03/02/18 Nifedipine (Procardia Xl) 90 Mg Tab.er.24, 90 MG PO DAILY for 10 Days, #15 TAB 1 Refill Prov:LISA PABON MD 12/26/17 Insulin Aspart* (Novolog Insulin Pen*) 100 Unit/Ml Soln, 5 UNIT SC WITH MEALS for 15 Days, #45 1 Refill Prov:LISA PABON MD 12/24/17 Aspirin* (Aspirin* EC) 81 Mg Tablet.dr, 81 MG PO DAILY for 14 Days otc Prov:LISA PABON MD 12/24/17 Reported Medications Insulin Glargine,Hum.rec.anlog (Basaglar Kwikpen U-100) 100 Unit/1 Ml Insuln.pen, 9 UNIT SC QHS, EA 03/02/18 Gabapentin* (Gabapentin*) 100 Mg Capsule, 200 MG PO BID, #180 CAP 03/02/18 Carbamazepine* (Tegretol Xr*) 200 Mg Tab.sr.12h, 200 MG PO Q12, TAB.SA 08/29/17 Phenytoin* Sodium Extended (Dilantin*) 100 Mg Capsule, 300 MG PO BID, CAP 08/29/17 Multivitamins* (Theragran*) 1 Tab Tab, 1 TAB PO DAILY, TAB 08/29/17 Folic Acid* (Folic Acid*) 1 Mg Tablet, 1 MG PO DAILY, TAB 08/29/17 Fluoxetine Hcl* (Prozac*) 40 Mg Capsule, 40 MG PO DAILY, CAP 08/29/17 Allergies Allergies: Coded Allergies: mushroom (Verified Allergy, Severe, 03/02/18) swollen throat, No Known Drug Allergy (Verified Allergy, Unknown, 03/02/18) PMhx/Soc Chronic bilateral foot osteomyelitis and right forefoot amputation status post 1 month of oral antibiotics including cephalexin and Bactrim, history of anemia and renal failure, diabetes mellitus type 2, hypertension, chronic alcoholism, seizure disorder, depression, recent right lower extremity ultrasound which was negative for DVT History of Surgery: Yes (R FOOT TOE AMPUTATION 2017, ) Anesthesia Reaction: Yes Hx Neurological Disorder: Yes (SEIZURE D/O) Hx Respiratory Disorders: No Hx Cardiac Disorders: Yes (HIGH BLOOD PRESSURE) Hx Psychiatric Problems: Yes (ETOH ABUSE) Hx Miscellaneous Medical Probl: Yes (DM, HAZEL, LT great toe osteomyelitis) Hx Alcohol Use: Yes (FREQUNT DRINKER) Hx Substance Use: No Hx Tobacco Use: No FmHx Family History: diabetes Physical Exam Vitals Vital Signs Date Temp Pulse Resp B/P (MAP) Pulse Ox O2 O2 Flow FiO2 Time Delivery Rate 05/21/18 78 18 97 21 16:42 05/21/18 98.1 82 20 118/57 97 13:06 (77) Physical Exam Const: No acute distress, afebrile HEENT: No cervical spine deformity, pupils equal round reactive to light, moist mucous membranes Resp: Clear to auscultation bilaterally Cardio: Regular rate and rhythm, no murmurs Abd: Soft, non tender, non distended. Normal bowel sounds Skin: Right forefoot amputation the stump appears clean without wound dehiscence although there is a right plantar foot pressure ulcer, no discharge, no foul odor noted. The surrounding skin appears necrotic in contrast to 3 months ago where skin was intact and pink in color Back: No midline or flank tenderness Ext: No cyanosis, or edema, calves bilaterally symmetrical, distal pulses equal Neur: Awake and alert x3, no focal deficits or facial asymmetry Psych: Agitated Result Diagram: 05/21/18 1550 05/21/18 1550 Results 24 hrs Laboratory Tests Test 05/21/18 15:50 White Blood Count 7.2 10^3/ul Red Blood Count 3.47 10^6/ul Hemoglobin 9.7 g/dl Hematocrit 31.0 % Mean Corpuscular Volume 89.3 fl Mean Corpuscular Hemoglobin 28.0 pg Mean Corpuscular Hemoglobin Concent 31.3 g/dl Red Cell Distribution Width 13.2 % Platelet Count 437 10^3/UL Mean Platelet Volume 9.7 fl Immature Granulocytes % 0.100 % Neutrophils % 77.0 % Lymphocytes % 12.0 % Monocytes % 6.6 % Eosinophils % 3.9 % Basophils % 0.4 % Nucleated Red Blood Cells % 0.0 /100WBC Immature Granulocytes # 0.010 10^3/ul Neutrophils # 5.6 10^3/ul Lymphocytes # 0.9 10^3/ul Monocytes # 0.5 10^3/ul Eosinophils # 0.3 10^3/ul Basophils # 0.0 10^3/ul Nucleated Red Blood Cells # 0.0 10^3/ul Prothrombin Time 12.4 Sec Prothrombin Time Ratio 1.0 INR International Normalized Ratio 0.91 Activated Partial Thromboplast Time 32.3 Sec Sodium Level 139 mmol/L Potassium Level 6.3 mmol/L Chloride Level 101 mmol/L Carbon Dioxide Level 21 mmol/L Anion Gap 17 Blood Urea Nitrogen 36 mg/dl Creatinine 2.11 mg/dl Est Glomerular Filtrat Rate mL/min 33 mL/min Glucose Level 209 mg/dl Calcium Level 9.9 mg/dl Current Medications Medications Dose Sig/Nidia Start Time Status Last (Trade) Ordered Route PRN Stop Time Admin Dose Reason Admin Sodium 500 ml @ Q1H STAT 05/21/18 DC 05/21/18 Chloride 500 mls/hr IV 15:42 16:30 05/21/18 16:41 Cefepime HCl 50 ml @ ONCE ONCE 05/21/18 DC 05/21/18 100 mls/hr IVPB 16:30 16:49 05/21/18 16:59 Vancomycin 250 ml @ ONCE ONCE 05/21/18 HCl 125 mls/hr IVPB 16:30 05/21/18 18:29 Albuterol 10 mg ONCE STAT 05/21/18 DC 05/21/18 (Proventil INH 16:24 16:42 0.5% (Neb)) 05/21/18 16:31 Calcium 110 ml @ ONCE ONCE 05/21/18 Gluconate 1 110 mls/hr IVPB 16:30 gm/Dextrose 05/21/18 17:29 Procedures/MDM IV line was established patient was placed on ekg monitor tech rhythm strip revealed a sinus rhythm at about 80 bpm with upright P and T waves. Patient was afebrile I administered cefepime 1 g IV and vancomycin 1 g IV. Three-view x-ray of the right foot performed, read by me there is amputation at the distal metatarsals with erosive changes to the distal metatarsals, no concerning soft tissue air CBC revealed mild anemia, electrolytes revealed hyperkalemia at 6.0, coagulation profile is normal I treated him here with calcium gluconate 1 g IV and albuterol 10 mg via nebulizer for hyperkalemia. Patient will require admission and podiatry evaluation and possible wound debridement with continuous IV antibiotics. Patient's health insurance directed admission to [facility] Departure Diagnosis: Primary Impression: Infected ulcer of skin Non-pressure ulcer stage: unspecified non-pressure ulcer stage Qualified Codes: L98.499 - Non-pressure chronic ulcer of skin of other sites with unspecified severity; L08.9 - Local infection of the skin and subcutaneous tissue, unspecified Additional Impressions: Osteomyelitis of left foot Osteomyelitis type: unspecified type Qualified Codes: M86.9 - Osteomyelitis, unspecified Osteomyelitis of right foot Osteomyelitis type: unspecified type Qualified Codes: M86.9 - Osteom yelitis, unspecified End stage kidney disease Acute hyperkalemia Condition: RYAN Pitts MD May 21, 2018 16:26
[2018-05-21] MEDS ORDERED: ONDANSETRON 4 MG INJ IV PRN (17:30)
[2018-05-21] MEDS ORDERED: NACL 0.9% 3 ML SYG IV SCH (17:30)
[2018-05-21] MEDS ORDERED: VANCOMYCIN IV PER PHARMACY XX SCH (18:00)
[2018-05-21] MEDS ORDERED: DEXTROSE 50% 50 ML SYRINGE IV PRN ×2 (18:00)
[2018-05-21] MEDS ORDERED: GLUCOSE GEL 15 GRAM TUBE BUCCAL PRN (18:00)
[2018-05-21] MEDS ORDERED: GLUCOSE GEL 15 GRAM TUBE PO PRN ×2 (18:00)
[2018-05-21] MEDS ORDERED: GLUCAGON 1 MG INJ IM PRN (18:00)
[2018-05-21] MEDS ORDERED: GLIP10TA14 PO (18:04)
[2018-05-21] MEDS ORDERED: HYDR-3670 PO (18:05)
[2018-05-21] MEDS ORDERED: FER325 PO (18:06)
[2018-05-21] MEDS ORDERED: AMLO-147 PO (18:07)
[2018-05-21] MEDS ORDERED: THIA100T56 PO (18:07)
--- NOTE | 2018-05-21 18:07 | HP ---
Date/Time of Note Date/Time of Note DATE: 05/21/18 TIME: 17:55 Assessment/Plan VTE Prophylaxis SCD applied (from Nsg): Yes Pharmacological prophylaxis: heparin Lines/Catheters IV Catheter Type (from Nrsg): Saline Lock Assessment/Plan Assessment/Plan 53-year-old man with comorbidities including hypertension, diabetes mellitus typ e 2, dyslipidemia, seizure disorder, depression, alcoholism, and right foot osteomyelitis who presents with worsening R foot osteo. # R foot osteo - No evidence of systemic sepsis - Will start empiric vanc and cefepime. - ID following previously, will consulted [facility]. - Consult Dr. Staley - Pain control with norco #HAZEL #Hyperkalemia - HAZEL may be due to heavy NSAID use from pain. - Medical management with insulin, dextrose, laxitives - Dr. Hopkins following previously; if Cr does not improve will consult. # Diabetes mellitus type 2. -Start the patient on sliding scale insulin along with pre-meal insulin and basal insulin. -Obtain hemoglobin A1c to evaluate the blood glucose control over the past few weeks. # Hypertension. -Resume antihypertensives. -Hold ARB given the patient's renal function. # Alcohol abuse. - He reports weeks of sobriety # Depression. -Resume SSRIs. DVT: heparin GI: None Result Diagram: 05/21/18 1550 05/21/18 1550 HPI/ROS Admit Date/Time Admit Date/Time 21 May 2018 Hx of Present Illness Mr. Bedolla is a 52 yo man with history of hypertension, diabetes mellitus type 2, dyslipidemia, seizure disorder, depression, alcoholism, and right foot osteo myelitis referred to the ED by his wall taper helper for R foot osteomyelitis. He had a prolonged hospitalization at [facility] from 12/03-12/30 for R foot osteomyelitis. After discharge he was doing well, ambulating. He also got sober. Over the past several weeks he's developed worsening pain of the R foot. Takes Keller 10 BID which previously provided good pain relief but recently has not been completely resolving pain. Also with serous and purulent drainage from foot ulcer. Reports waking up with chills and sweats one week ago. In the ED he was afebrile; vitals unremarkable. Labs concerning for HAZEL to 2.11 and K 6.3. ROS Denies significant fevers, fatigue, weight loss, anorexia, headache, vision changes, dysphagia, sore throat, cough, dyspnea, chest pain/pressure/palpit ations, nausea, vomiting, abdominal pain, diarrhea, constipation, dysuria, hematuria, hematochezia. PMH/Family/Social Past Medical History As per HPI Medications Current Medications Vancomycin HCl 250 ml @ 125 mls/hr ONCE ONCE IVPB ; Start 05/21/18 at 16:30; Stop 05/21/18 at 18:29 Sodium Chloride 1,000 ml @ 75 mls/hr [id number] IV ; Start 05/21/18 at 17:17 IV Flush (NS 3 ml) 3 ml PER PROTOCOL IV ; Start 05/21/18 at 17:30 Ondansetron HCl (Zofran Inj) 4 mg Q6H PRN IV NAUSEA/VOMITING; Start 05/21/18 at 17:30 Heparin Sodium (Porcine) (Heparin (5000 Units/1ml)) 5,000 unit Q8 SC ; Start 05/21/18 at 22:00 Acetaminophen/ Hydrocodone Bitart (Keller (10325)) 1 tab Q4H PRN PO MODERATE PAIN LEVEL 4-6; Start 05/21/18 at 18:00 Morphine Sulfate (morphine) 4 mg Q4H PRN IV BREAKTHROUGH PAIN; Start 05/21/18 at 18:00 Vancomycin HCl (Vanco Iv Per Pharmacy) VANCOMYCIN PER PHARMACY PER PROTOCOL XX ; Start 05/21/18 at 18:00; Status UNV Cefepime HCl 50 ml @ 100 mls/hr Q12 IVPB ; Start 05/22/18 at 01:00 Diagnostic Test (Pha) (Accu-Chek) 1 XX ; Start 05/22/18 at 02:00; Status UNV Insulin Glargine (Lantus) 10 units DAILY@2000 SC ; Start 05/21/18 at 20:00; Status UNV Miscellaneous Information (* Miscellaneous Pharmacy Order) HYPOGLYCEMIA PROTOCOL w... ONCE ONCE XX ; Start 05/21/18 at 18:00; Stop 05/21/18 at 18:01; Status UNV Insulin Aspart (Novolog Insulin Pen) NOVOLOG *MODERATE* ALGORITHM WITH MEALS BEDTIME SC ; Start 05/21/18 at 18:00; Status UNV Coded Allergies: mushroom (Verified Allergy, Severe, 05/21/18) swollen throat, No Known Drug Allergy (Verified Allergy, Unknown, 05/21/18) Past Surgical History R foot debridement Past Surgical Hx: other Family History Significant Family History: no pertinent family hx Social History Alcohol Use: sober (Since early May) Smoking Status: Never smoker Drug Use: none Exam/Review of Systems Vital Signs Vitals Vital Signs Date Temp Pulse Resp B/P (MAP) Pulse Ox O2 O2 Flow FiO2 Time Delivery Rate 05/21/18 98.0 84 18 184/94 98 Room Air 17:44 (124) 05/21/18 16:42 Exam Exam Gen: Well developed man in no acute distress, lying in gurney Eyes: PERRL, no icterus HEENT: Moist mucous membranes, a dentulous, clear oropharynx Neck: Distended JVD. No lymphadenopathy Card: Regular rate and rhythm, no murmurs Pulm: Clear to auscultation bilaterally Abd: Soft, nontender, nondistended. Ext: R foot missing digits. Large circular plantar ulcer, clean based. Surrounding black escar. Mildly tender to deep palpation surrounding it. L foot has black escar on tip of 1st and 2nd digits. Good peripheral pulses. Skin: Otherwise warm, dry, well perfused. HOLLIS BROWN MD May 21, 2018 18:07
[2018-05-21] MEDS ORDERED: PHEN100C PO (18:08)
[2018-05-21] MEDS ORDERED: LISI40TA3 PO (18:09)
[2018-05-21] MEDS ORDERED: SITA100T11 PO (18:10)
[2018-05-21] MEDS ORDERED: LACT1TAB25 PO (18:11)
[2018-05-21] MEDS ORDERED: TAMS0.4C2 PO (18:14)
[2018-05-21] MEDS ORDERED: HYDR-3980 PO (18:15)
[2018-05-21] MEDS ORDERED: HYDR12.58 PO (18:15)
[2018-05-21] MEDS ORDERED: ATOR-2 PO (18:18)
[2018-05-21] MEDS: HYDROCODONE/APAP (10/325) TAB PO PRN (19:24)
[2018-05-21 21:50] VITALS: BP 162/91; PULSE 86; RESP 18
[2018-05-21 22:15] VITALS: Ht 170.2 cm; Wt 77.5 kg
[2018-05-21] MEDS: ATORVASTATIN 40 MG TAB PO SCH (22:26)
[2018-05-21] MEDS: GABAPENTIN 100 MG CAP PO SCH (22:26)
[2018-05-21] MEDS: TAMSULOSIN (SR) 0.4 MG CAP PO SCH (22:27)
[2018-05-21] MEDS: PHENYTOIN 100 MG CAP PO SCH (22:28)
[2018-05-21] MEDS: INSULIN ASPART [NOVOLOG] 3 ML PEN SC SCH (22:29)
[2018-05-21] MEDS: HEPARIN 5,000 UNIT/1 ML VIAL SC SCH (22:32)
[2018-05-21] MEDS: SOD CHLORIDE 0.9% 1,000 ML IV SCH (23:25)
[2018-05-21] MEDS: carBAMAZepine (XR) 200 MG TABSR PO SCH (23:34)
[2018-05-21] MEDS: morphine 4 MG/ML VIAL IV PRN (23:37)
[2018-05-21] MEDS: INSULIN GLARGINE [LANTus] (100 UNITS/ML) SYG SC SCH (23:41)
[2018-05-22] VITALS (12 sets, daily range): BP systolic 122–148; BP diastolic 66–80; PULSE 76–96; RESP 18–19
[2018-05-22] MEDS: CEFEPIME 2GM/50 ML (PMX) 50 ML IVPB SCH ×3 (01:46→21:17)
[2018-05-22] MEDS: ACCU-CHEK XX SCH (01:49)
[2018-05-22] MEDS: HYDROCODONE/APAP (10/325) TAB PO PRN ×2 (04:45→09:43)
[2018-05-22] MEDS: morphine 4 MG/ML VIAL IV PRN ×3 (05:24→21:10)
[2018-05-22] MEDS: HEPARIN 5,000 UNIT/1 ML VIAL SC SCH ×3 (05:28→21:28)
[2018-05-22] MEDS: SOD CHLORIDE 0.9% 1,000 ML IV SCH ×2 (06:37→09:42)
[2018-05-22] MEDS: INSULIN ASPART [NOVOLOG] 3 ML PEN SC SCH ×4 (07:37→21:00)
[2018-05-22] MEDS ORDERED: NA POLYST SULFON 15 GM/60 ML BTL PO STA (08:28)
--- NOTE | 2018-05-22 08:28 | CONS ---
Assessment/Plan Assessment/Plan Assessment/Plan (Daily) 1. acute kidney injury 2/2 ATN from osteomyelitis 2. 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 Right foot obsteomyelitis 4. Anemia of CKD/Anemia of chronic disease 5. H/O DM II, 6. H/o HTN 7. H/o HL Plan: IVF NS at 75 cc/hr IV abx cefepime and vancomycin, renally dose all abx and monitor electrolytes previously had a full CKD work up - no need to repeat it thanks for consultation< i will continue to follow up Consultation Date/Type/Reason Admit Date/Time 21 May 2018 Date of Consultation: May 22, 2018 Type of Consult NEPHROLOGY Reason for Consultation acute kidney injury Requesting Provider: HOLLIS BROWN MD Date/Time of Note DATE: 05/22/18 TIME: 08:28 Hx of Present Illness 53-year-old man with comorbidities including hypertension, diabetes mellitus type 2, dyslipidemia, seizure disorder, depression, alcoholism, and right foot osteomyelitis who presents with worsening R foot osteo. - started on IV abx empirically with cefepime and vancomycin., on admission he was noted to have elevated BUN/Cr 36/2.11- Renal has been consulted for Gloria on CKD III. K normal Constitutional: no complaints Eyes: no complaints ENT: no complaints Respiratory: no complaints Cardiovascular: no complaints Gastrointestinal: no complaints Musculoskeletal: bone/joint pain, other (Right foot pain, swellign erythema ) Skin: no complaints Neurologic: no complaints Endocrine: no complaints Lymphatic: no complaints Psychological: no complaints Immunologic: no complaints Past Medical History Medical History: other (hypertension, diabetes mellitus type 2, dyslipidemia, seizure disorder, depression, alcoholism, and right foot osteomyelitis ) Home Meds Active Scripts Nifedipine (Procardia Xl) 90 Mg Tab.er.24, 90 MG PO DAILY for 10 Days, #15 TAB 1 Refill Prov:LISA PABON MD 12/26/17 Aspirin* (Aspirin* EC) 81 Mg Tablet.dr, 81 MG PO DAILY for 14 Days otc Prov:LISA PABON MD 12/24/17 Reported Medications Atorvastatin* (Atorvastatin*) Unknown Strength Tablet, 1 TAB PO QHS, #30 TAB 05/21/18 Hydrocodone/Acetaminophen (Bertha 10-325 Tablet) 1 Each Tablet, 1 EACH PO BID, TAB 05/21/18 Hydrochlorothiazide* (Hydrochlorothiazide*) 12.5 Mg Tablet, 12.5 MG PO DAILY, #30 TAB 05/21/18 Tamsulosin Hcl* (Tamsulosin Hcl*) 0.4 Mg Cap.er.24h, 0.4 MG PO HS, CAP 05/21/18 Lactobacillus Acidophilus (Probiotic Acidophilus) 1 Each Tablet, 1 EACH PO DAILY, TAB 05/21/18 Sitagliptin* (Januvia*) 100 Mg Tablet, 100 MG PO DAILY, #30 TAB 05/21/18 Lisinopril* (Lisinopril*) 40 Mg Tablet, 40 MG PO DAILY, #30 TAB 05/21/18 Phenytoin* Sodium Extended (Dilantin*) 100 Mg Capsule, 100 MG PO TID, CAP 05/21/18 Amlodipine Besylate* (Amlodipine Besylate*) 10 Mg Tablet, 10 MG PO DAILY, #30 TAB 05/21/18 Thiamine* (Vitamin B-1*) 100 Mg Tablet, 100 MG PO DAILY, TAB 05/21/18 Ferrous Sulfate* (Ferrous Sulfate*) 325 Mg Tabec, 325 MG PO DAILY, TAB 05/21/18 Hydralazine Hcl* (Hydralazine Hcl*) 10 Mg Tablet, 10 MG PO TID, #90 TAB 05/21/18 Glipizide* (Glipizide*) 10 Mg Tablet, 10 MG PO AC BREAKFAST, TAB 05/21/18 Insulin Glargine,Hum.rec.anlog (Basaglar Kwikpen U-100) 100 Unit/1 Ml Insuln.pen, 9 UNIT SC QHS, EA 03/02/18 Gabapentin* (Gabapentin*) 100 Mg Capsule, 200 MG PO BID, #180 CAP 03/02/18 Carbamazepine* (Tegretol Xr*) 200 Mg Tab.sr.12h, 200 MG PO Q12, TAB.SA 08/29/17 Folic Acid* (Folic Acid*) 1 Mg Tablet, 1 MG PO DAILY, TAB 08/29/17 Fluoxetine Hcl* (Prozac*) 40 Mg Capsule, 40 MG PO DAILY, CAP 08/29/17 Discontinued Reported Medications Phenytoin* Sodium Extended (Dilantin*) 100 Mg Capsule, 300 MG PO BID, CAP 08/29/17 Multivitamins* (Theragran*) 1 Tab Tab, 1 TAB PO DAILY, TAB 08/29/17 Discontinued Scripts Naproxen* (Naprosyn*) 500 Mg Tablet, 500 MG PO BID PRN for PAIN AND/OR INFLAMMATION, #30 TAB Prov:RYAN RODRÍGUEZ MD 03/02/18 Sulfamethoxazole/Trimethoprim* (Bactrim Ds* Tablet) 1 Each Tablet, 1 TAB PO BID, #20 TAB Prov:RYAN RODRÍGUEZ MD 03/02/18 Cephalexin* (Keflex*) 500 Mg Capsule, 500 MG PO QID for 10 Days, CAP Prov:RYAN RODRÍGUEZ MD 03/02/18 Insulin Aspart* (Novolog Insulin Pen*) 100 Unit/Ml Soln, 5 UNIT SC WITH MEALS for 15 Days, #45 1 Refill Prov:LISA PABON MD 12/24/17 Medications Current Medications Sodium Chloride 1,000 ml @ 75 mls/hr [id number] IV Last administered on 05/21/18at 23:25; Admin Dose 75 MLS/HR; Start 05/21/18 at 17:17 IV Flush (NS 3 ml) 3 ml PER PROTOCOL IV ; Start 05/21/18 at 17:30 Ondansetron HCl (Zofran Inj) 4 mg Q6H PRN IV NAUSEA/VOMITING; Start 05/21/18 at 17:30 Heparin Sodium (Porcine) (Heparin (5000 Units/1ml)) 5,000 unit Q8 SC Last administered on 05/22/18at 05:28; Admin Dose 5,000 UNIT; Start 05/21/18 at 22:00 Acetaminophen/ Hydrocodone Bitart ([place] (10/325)) 1 tab Q4H PRN PO MODERATE PAIN LEVEL 4-6 Last administered on 05/22/18at 04:45; Admin Dose 1 TAB; Start 05/21/18 at 18:00 Morphine Sulfate (morphine) 4 mg Q4H PRN IV BREAKTHROUGH PAIN Last administered on 05/22/18at 05:24; Admin Dose 4 MG; Start 05/21/18 at 18:00 Vancomycin HCl (Vanco Iv Per Pharmacy) VANCOMYCIN PER PHARMACY PER PROTOCOL XX ; Start 05/21/18 at 18:00 Cefepime HCl 50 ml @ 100 mls/hr Q12 IVPB Last administered on 05/22/18at 01:46; Admin Dose 100 MLS/HR; Start 05/22/18 at 01:00 Diagnostic Test (Pha) (Accu-Chek) 1 ea 02 XX ; Start 05/22/18 at 02:00 Insulin Glargine (Lantus) 10 units DAILY@2000 SC Last administered on 05/21/18at 23:41; Admin Dose 10 UNITS; Start 05/21/18 at 23:00 Insulin Aspart (Novolog Insulin Pen) NOVOLOG *MODERATE* ALGORITHM WITH MEALS BEDTIME SC ; Start 05/21/18 at 23:30 Aspirin (Halfprin) 81 mg DAILY PO ; Start 05/22/18 at 09:00 Carbamazepine (Tegretol Xr) 200 mg Q12 PO Last administered on 05/21/18at 23:34; Admin Dose 200 MG; Start 05/21/18 at 22:00 Fluoxetine HCl (Prozac) 40 mg DAILY PO ; Start 05/22/18 at 09:00 Folic Acid (Folic Acid) 1 mg DAILY PO ; Start 05/22/18 at 09:00 Gabapentin (Neurontin) 200 mg BID PO Last administered on 05/21/18at 22:26; Admin Dose 200 MG; Start 05/21/18 at 22:00 Nifedipine (Procardia Xl) 90 mg DAILY PO ; Start 05/22/18 at 09:00 Phenytoin (Dilantin) 300 mg BID PO Last administered on 05/21/18at 22:28; Admin Dose 300 MG; Start 05/21/18 at 21:00 Atorvastatin Calcium (Lipitor) 40 mg HS PO Last administered on 05/21/18at 22:26; Admin Dose 40 MG; Start 05/21/18 at 22:00 Tamsulosin HCl (Flomax) 0.4 mg HS PO Last administered on 05/21/18at 22:27; Admin Dose 0.4 MG; Start 05/21/18 at 22:00 Miscellaneous Information 1 ea NOTE XX ; Start 05/21/18 at 18:00 Glucose (Glutose) 15 gm Q15M PRN PO DECREASED GLUCOSE; Start 05/21/18 at 18:00 Glucose (Glutose) 22.5 gm Q15M PRN PO DECREASED GLUCOSE; Start 05/21/18 at 18:00 Dextrose (D50w Syringe) 25 ml Q15M PRN IV DECREASED GLUCOSE; Start 05/21/18 at 18:00 Dextrose (D50w Syringe) 50 ml Q15M PRN IV DECREASED GLUCOSE; Start 05/21/18 at 18:00 Glucagon (Glucagen) 1 mg Q15M PRN IM DECREASED GLUCOSE; Start 05/21/18 at 18:00 Glucose (Glutose) 15 gm Q15M PRN BUCCAL DECREASED GLUCOSE; Start 05/21/18 at 18:00 Vancomycin HCl 1.25 gm/Sodium Chloride 250 ml @ 83.333 mls/ hr Q24H IVPB ; Start 05/22/18 at 12:00 Allergies: Coded Allergies: mushroom (Verified Allergy, Severe, 05/21/18) swollen throat, No Known Drug Allergy (Verified Allergy, Unknown, 05/21/18) Past Surgical History Past Surgical Hx: no surgical history, other Family History Significant Family History: other (Right knee surgery, Right foot and left foot surgery ) Social History Alcohol Use: sober (Since early May) Smoking Status: Former smoker Drug Use: none Exam/Review of Systems Exam Vitals Vital Signs Date Temp Pulse Resp B/P (MAP) Pulse Ox O2 O2 Flow FiO2 Time Delivery Rate 05/22/18 96 08:00 05/22/18 98.4 18 131/66 98 07:57 (87) 05/21/18 Room Air 21:50 05/21/18 21 16:42 Intake and Output 05/21/18 05/21/18 05/22/18 1414:59 22:59 06:59 IntakeIntake Total 660 ml 1450 ml OutputOutput Total 925 ml BalanceBalance 660 ml 525 ml Exam Constitutional: alert, oriented Psych: anxiety Head: normocephalic Neck: supple, non-tender Respiratory: clear to auscultation Cardiovascular: regular rate and rhythm Gastrointestinal: soft, non-tender Musculoskeletal: other (right foot with amputated toes, left foot with dressing in place Neurological: CLE[employer] II-XII intact, nl mental status, nl speech Results Result Diagram: 05/22/18 0511 05/22/18 0511 Results 24hrs Laboratory Tests Test 05/21/18 15:50 05/21/18 18:05 05/21/18 22:13 05/22/18 05:11 White Blood Count 7.2 # 4.8 # Red Blood Count 3.47 #L 3.12 L Hemoglobin 9.7 #L 8.6 L Hematocrit 31.0 #L 27.7 L Mean Corpuscular 89.3 88.8 Volume Mean Corpuscular 28.0 L 27.6 L Hemoglobin Mean Corpuscular 31.3 L 31.0 L Hemoglobin Concent Red Cell 13.2 13.2 Distribution Width Platelet Count 437 H 412 Mean Platelet Volume 9.7 10.0 Immature 0.100 0.400 Granulocytes % Neutrophils % 77.0 71.4 Lymphocytes % 12.0 L 14.0 L Monocytes % 6.6 9.4 Eosinophils % 3.9 4.2 Basophils % 0.4 0.6 Nucleated Red Blood 0.0 0.0 Cells % Immature 0.010 0.020 Granulocytes # Neutrophils # 5.6 3.4 Lymphocytes # 0.9 0.7 L Monocytes # 0.5 0.5 Eosinophils # 0.3 0.2 Basophils # 0.0 0.0 Nucleated Red Blood 0.0 0.0 Cells # Prothrombin Time 12.4 Prothrombin Time 1.0 Ratio INR International 0.91 Normalized Ratio Activated 32.3 Partial Thromboplast Time Sodium Level 139 137 139 Potassium Level 6.3 *H 5.3 H 6.0 H Chloride Level 101 105 103 Carbon Dioxide Level 21 20 L 24 Anion Gap 17 H 12 12 Blood Urea Nitrogen 36 H 32 H 26 H Creatinine 2.11 H 1.94 H 1.53 H Est Glomerular 33 L 36 L 48 L Filtrat Rate mL/min Glucose Level 209 176 112 # Calcium Level 9.9 10.0 9.5 Phosphorus Level 4.2 4.5 Magnesium Level 2.0 1.7 Bedside Glucose 131 Hemoglobin A1c 7.5 H Total Bilirubin 0.1 L Direct Bilirubin 0.00 Indirect Bilirubin 0.1 Aspartate Amino 29 Transf (AST/SGOT) Alanine 41 Aminotransferase (AL T/SGPT) Alkaline Phosphatase 140 H Total Protein 7.7 Albumin 4.3 Globulin 3.40 H Albumin/Globulin 1.26 Ratio Triglycerides Level 95 Cholesterol Level 176 LDL Cholesterol, 91 Calculated HDL Cholesterol 66 Cholesterol/HDL 2.6 Ratio Thyroid Stimulating 3.420 Hormone (TSH) Test 05/22/18 07:35 Bedside Glucose 102 Medications Medication Current Medications Sodium Chloride 1,000 ml @ 75 mls/hr [id number] IV Last administered on 05/21/18at 23:25; Admin Dose 75 MLS/HR; Start 05/21/18 at 17:17 IV Flush (NS 3 ml) 3 ml PER PROTOCOL IV ; Start 05/21/18 at 17:30 Ondansetron HCl (Zofran Inj) 4 mg Q6H PRN IV NAUSEA/VOMITING; Start 05/21/18 at 17:30 Heparin Sodium (Porcine) (Heparin (5000 Units/1ml)) 5,000 unit Q8 SC Last administered on 05/22/18at 05:28; Admin Dose 5,000 UNIT; Start 05/21/18 at 22:00 Acetaminophen/ Hydrocodone Bitart (Bertha (10/325)) 1 tab Q4H PRN PO MODERATE PAIN LEVEL 4-6 Last administered on 05/22/18at 04:45; Admin Dose 1 TAB; Start 05/21/18 at 18:00 Morphine Sulfate (morphine) 4 mg Q4H PRN IV BREAKTHROUGH PAIN Last administered on 05/22/18at 05:24; Admin Dose 4 MG; Start 05/21/18 at 18:00 Vancomycin HCl (Vanco Iv Per Pharmacy) VANCOMYCIN PER PHARMACY PER PROTOCOL XX ; Start 05/21/18 at 18:00 Cefepime HCl 50 ml @ 100 mls/hr Q12 IVPB Last administered on 05/22/18at 01:46; Admin Dose 100 MLS/HR; Start 05/22/18 at 01:00 Diagnostic Test (Pha) (Accu-Chek) XX ; Start 05/22/18 at 02:00 Insulin Glargine (Lantus) 10 units DAILY@2000 SC Last administered on 05/21/18at 23:41; Admin Dose 10 UNITS; Start 05/21/18 at 23:00 Insulin Aspart (Novolog Insulin Pen) NOVOLOG *MODERATE* ALGORITHM WITH MEALS BEDTIME SC ; Start 05/21/18 at 23:30 Aspirin (Halfprin) 81 mg DAILY PO ; Start 05/22/18 at 09:00 Carbamazepine (Tegretol Xr) 200 mg Q12 PO Last administered on 05/21/18at 23:34; Admin Dose 200 MG; Start 05/21/18 at 22:00 Fluoxetine HCl (Prozac) 40 mg DAILY PO ; Start 05/22/18 at 09:00 Folic Acid (Folic Acid) 1 mg DAILY PO ; Start 05/22/18 at 09:00 Gabapentin (Neurontin) 200 mg BID PO Last administered on 05/21/18at 22:26; Admin Dose 200 MG; Start 05/21/18 at 22:00 Nifedipine (Procardia Xl) 90 mg DAILY PO ; Start 05/22/18 at 09:00 Phenytoin (Dilantin) 300 mg BID PO Last administered on 05/21/18at 22:28; Admin Dose 300 MG; Start 05/21/18 at 21:00 Atorvastatin Calcium (Lipitor) 40 mg HS PO Last administered on 05/21/18at 22:26; Admin Dose 40 MG; Start 05/21/18 at 22:00 Tamsulosin HCl (Flomax) 0.4 mg HS PO Last administered on 05/21/18at 22:27; Admin Dose 0.4 MG; Start 05/21/18 at 22:00 Miscellaneous Information 1 ea NOTE XX ; Start 05/21/18 at 18:00 Glucose (Glutose) 15 gm Q15M PRN PO DECREASED GLUCOSE; Start 05/21/18 at 18:00 Glucose (Glutose) 22.5 gm Q15M PRN PO DECREASED GLUCOSE; Start 05/21/18 at 18:00 Dextrose (D50w Syringe) 25 ml Q15M PRN IV DECREASED GLUCOSE; Start 05/21/18 at 18:00 Dextrose (D50w Syringe) 50 ml Q15M PRN IV DECREASED GLUCOSE; Start 05/21/18 at 18:00 Glucagon (Glucagen) 1 mg Q15M PRN IM DECREASED GLUCOSE; Start 05/21/18 at 18:00 Glucose (Glutose) 15 gm Q15M PRN BUCCAL DECREASED GLUCOSE; Start 05/21/18 at 18:00 Vancomycin HCl 1.25 gm/Sodium Chloride 250 ml @ 83.333 mls/ hr Q24H IVPB ; Start 05/22/18 at 12:00 BHARATH NARANJO MD May 22, 2018 08:28
[2018-05-22] MEDS ORDERED: NA POLYST SULFON 15 GM/60 ML BTL PO ONE (09:30)
[2018-05-22] MEDS: ASPIRIN (EC) 81 MG TAB PO SCH (09:40)
[2018-05-22] MEDS: GABAPENTIN 100 MG CAP PO SCH ×2 (09:40→21:13)
[2018-05-22] MEDS: carBAMAZepine (XR) 200 MG TABSR PO SCH ×2 (09:41→21:13)
[2018-05-22] MEDS: FLUOXETINE 20 MG CAP PO SCH (09:41)
[2018-05-22] MEDS: PHENYTOIN 100 MG CAP PO SCH ×2 (09:41→21:14)
[2018-05-22] MEDS: FOLIC ACID 1 MG TAB PO SCH (09:41)
[2018-05-22] MEDS: NIFEdipine (XL) 90 MG TAB PO SCH (09:43)
[2018-05-22] MEDS ORDERED: VANCOMYCIN HCL 1.25 GM in SOD CHLORIDE 0.9% 250 ML IVPB SCH (12:00)
--- NOTE | 2018-05-22 14:24 | RADRPT ---
Vent Rate: 73 bpm RR Interval: 824 msec ID Interval: 128 msec QRS Duration: 82 msec QT Interval: 379 msec QTC Interval: 418 msec P-R-T [place]: 36 - 72 - 58 degrees Sinus rhythm...normal P axis, V-rate 50- 99 ST elev, probable normal early repol pattern...ST elevation, age<55 Electronically Signed By: Mike Mcclelland
--- NOTE | 2018-05-22 16:33 | PN ---
Date/Time of Note Date/Time of Note DATE: 05/22/18 TIME: 16:32 Assessment/Plan VTE Prophylaxis Risk score (from Nsg)>0 risk: 3 SCD applied (from Ns): No SCD contraindicated: other (not contraindicated) Pharmacological prophylaxis: heparin Lines/Catheters IV Catheter Type (from Nrsg): Peripheral IV Urinary Cath still in place: No Assessment/Plan Assessment/Plan 53-year-old man with comorbidities including hypertension, diabetes mellitus type 2, dyslipidemia, seizure disorder, depression, alcoholism, and right foot osteomyelitis who presents with worsening R foot osteo. # R foot osteo - No evidence of systemic sepsis - Will start empiric vanc and cefepime. - ID following previously, will consulted [facility]. - Consult Dr. Staley - Pain control with norco #HAZEL #Hyperkalemia - HAZEL may be due to heavy NSAID use from pain. Now slightly improved since admission - Medical management with kayexalate - Dr. Hopkins following # Diabetes mellitus type 2. -Start the patient on sliding scale insulin along with pre-meal insulin and basal insulin. -Obtain hemoglobin A1c to evaluate the blood glucose control over the past few weeks. # Hypertension. -Resume antihypertensives. -Hold ARB given the patient's renal function. # Alcohol abuse. - He reports weeks of sobriety # Depression. -Resume SSRIs. DVT: heparin GI: None Result Diagram: 05/22/18 0511 05/22/18 0511 Subjective 24 Hr Interval Summary Free Text/Dictation No acute overnight events. Patient feeling well. Exam/Review of Systems Exam Vitals Vital Signs Date Temp Pulse Resp B/P (MAP) Pulse Ox O2 O2 Flow FiO2 Time Delivery Rate 05/22/18 Room Air 16:22 05/22/18 98.0 83 18 144/80 98 15:41 (101) 05/21/18 21 16:42 Intake and Output 05/21/18 05/21/18 05/22/18 1515:00 23:00 07:00 IntakeIntake Total 660 ml 1450 ml OutputOutput Total 925 ml BalanceBalance 660 ml 525 ml Exam Gen: Well developed man in no acute distress, lying in gurney Eyes: PERRL, no icterus HEENT: Moist mucous membranes, a dentulous, clear oropharynx Neck: Distended JVD. No lymphadenopathy Card: Regular rate and rhythm, no murmurs Pulm: Clear to auscultation bilaterally Abd: Soft, nontender, nondistended. Ext: R foot bandaged. L foot has black escar on tip of 1st and 2nd digits. Good peripheral pulses. Skin: Otherwise warm, dry, well perfused. Results Results 24hrs Laboratory Tests Test 05/21/18 18:05 05/21/18 22:13 05/22/18 05:11 05/22/18 07:35 Sodium Level 137 139 Potassium Level 5.3 H 6.0 H Chloride Level 105 103 Carbon Dioxide Level 20 L 24 Anion Gap 12 12 Blood Urea Nitrogen 32 H 26 H Creatinine 1.94 H 1.53 H Est Glomerular 36 L 48 L Filtrat Rate mL/min Glucose Level 176 112 # Calcium Level 10.0 9.5 Phosphorus Level 4.2 4.5 Magnesium Level 2.0 1.7 Bedside Glucose 131 102 White Blood Count 4.8 # Red Blood Count 3.12 L Hemoglobin 8.6 L Hematocrit 27.7 L Mean Corpuscular 88.8 Volume Mean Corpuscular 27.6 L Hemoglobin Mean Corpuscular 31.0 L Hemoglobin Concent Red Cell 13.2 Distribution Width Platelet Count 412 Mean Platelet Volume 10.0 Immature 0.400 Granulocytes % Neutrophils % 71.4 Lymphocytes % 14.0 L Monocytes % 9.4 Eosinophils % 4.2 Basophils % 0.6 Nucleated Red Blood 0.0 Cells % Immature 0.020 Granulocytes # Neutrophils # 3.4 Lymphocytes # 0.7 L Monocytes # 0.5 Eosinophils # 0.2 Basophils # 0.0 Nucleated Red Blood 0.0 Cells # Hemoglobin A1c 7.5 H Total Bilirubin 0.1 L Direct Bilirubin 0.00 Indirect Bilirubin 0.1 Aspartate Amino 29 Transf (AST/SGOT) Alanine 41 Aminotransferase (AL T/SGPT) Alkaline Phosphatase 140 H Total Protein 7.7 Albumin 4.3 Globulin 3.40 H Albumin/Globulin 1.26 Ratio Triglycerides Level 95 Cholesterol Level 176 LDL Cholesterol, 91 Calculated HDL Cholesterol 66 Cholesterol/HDL 2.6 Ratio Thyroid Stimulating 3.420 Hormone (TSH) Test 05/22/18 11:32 Bedside Glucose 90 Medications Medication Current Medications Sodium Chloride 1,000 ml @ 75 mls/hr [id number] IV Last administered on 05/22/18at 09:42; Admin Dose 75 MLS/HR; Start 05/21/18 at 17:17 IV Flush (NS 3 ml) 3 ml PER PROTOCOL IV ; Start 05/21/18 at 17:30 Ondansetron HCl (Zofran Inj) 4 mg Q6H PRN IV NAUSEA/VOMITING; Start 05/21/18 at 17:30 Heparin Sodium (Porcine) (Heparin (5000 Units/1ml)) 5,000 unit Q8 SC Last administered on 05/22/18 14:51; Admin Dose 5,000 UNIT; Start 05/21/18 at 22:00 Acetaminophen/ Hydrocodone Bitart ([place] (10)) 1 tab Q4H PRN PO MODERATE PAIN LEVEL 4-6 Last administered on 05/22/18 09:43; Admin Dose 1 TAB; Start 05/21/18 at 18:00 Morphine Sulfate (morphine) 4 mg Q4H PRN IV BREAKTHROUGH PAIN Last administered on 05/22/18 11:34; Admin Dose 4 MG; Start 05/21/18 at 18:00 Vancomycin HCl (Vanco Iv Per Pharmacy) VANCOMYCIN PER PHARMACY PER PROTOCOL XX ; Start 05/21/18 at 18:00 Cefepime HCl 50 ml @ 100 mls/hr Q12 IVPB Last administered on 05/22/18 09:42; Admin Dose 100 MLS/HR; Start 05/22/18 at 01:00 Diagnostic Test (Pha) (Accu-Chek) XX ; Start 05/22/18 at 02:00 Insulin Glargine (Lantus) 10 units DAILY@2000 SC Last administered on 05/21/18 23:41; Admin Dose 10 UNITS; Start 05/21/18 at 23:00 Insulin Aspart (Novolog Insulin Pen) NOVOLOG *MODERATE* ALGORITHM WITH MEALS BEDTIME SC ; Start 05/21/18 at 23:30 Aspirin (Halfprin) 81 mg DAILY PO Last administered on 05/22/18 09:40; Admin Dose 81 MG; Start 05/22/18 at 09:00 Carbamazepine (Tegretol Xr) 200 mg Q12 PO Last administered on 05/22/18 09:41; Admin Dose 200 MG; Start 05/21/18 at 22:00 Fluoxetine HCl (Prozac) 40 mg DAILY PO Last administered on 05/22/18 09:41; Admin Dose 40 MG; Start 05/22/18 at 09:00 Folic Acid (Folic Acid) 1 mg DAILY PO Last administered on 05/22/18at 09:41; Admin Dose 1 MG; Start 05/22/18 at 09:00 Gabapentin (Neurontin) 200 mg BID PO Last administered on 05/22/18at 09:40; Admin Dose 200 MG; Start 05/21/18 at 22:00 Nifedipine (Procardia Xl) 90 mg DAILY PO Last administered on 05/22/18 09:43; Admin Dose 90 MG; Start 05/22/18 at 09:00 Phenytoin (Dilantin) 300 mg BID PO Last administered on 05/22/18 09:41; Admin Dose 300 MG; Start 05/21/18 at 21:00 Atorvastatin Calcium (Lipitor) 40 mg HS PO Last administered on 05/21/18 22:26; Admin Dose 40 MG; Start 05/21/18 at 22:00 Tamsulosin HCl (Flomax) 0.4 mg HS PO Last administered on 05/21/18 22:27; Admin Dose 0.4 MG; Start 05/21/18 at 22:00 Miscellaneous Information 1 ea NOTE XX ; Start 05/21/18 at 18:00 Glucose (Glutose) 15 gm Q15M PRN PO DECREASED GLUCOSE; Start 05/21/18 at 18:00 Glucose (Glutose) 22.5 gm Q15M PRN PO DECREASED GLUCOSE; Start 05/21/18 at 18:00 Dextrose (D50w Syringe) 25 ml Q15M PRN IV DECREASED GLUCOSE; Start 05/21/18 at 18:00 Dextrose (D50w Syringe) 50 ml Q15M PRN IV DECREASED GLUCOSE; Start 05/21/18 at 18:00 Glucagon (Glucagen) 1 mg Q15M PRN IM DECREASED GLUCOSE; Start 05/21/18 at 18:00 Glucose (Glutose) 15 gm Q15M PRN BUCCAL DECREASED GLUCOSE; Start 05/21/18 at 18:00 Vancomycin HCl 250 ml @ 125 mls/hr Q12H IVPB ; Start 05/22/18 at 23:00 HOLLIS BROWN MD May 22, 2018 16:33
--- NOTE | 2018-05-22 18:55 | CONS ---
Assessment/Plan Assessment/Plan Assessment/Plan (Daily) Right diabetic ulcer Right foot osteomyelitis Hx of right foot TMA DM2 with peripheral neuropathy Hx of alcohol abuse Depression Plan Consent obtained and performed excisional debridement of right diabetic foot ulcer of skin/subQ using pickup/scissors. Biofilm, hyperkeratotic tissue and skin slough was removed. 4cm2 of area was debrided. Ulcer does not probe to bone. There are signs of osteomyelitis on X-ray. Wound cultures obtained. MRI and non invasive arterial studies ordered. Recommend non weight bearing to right lower extremity. Offload heels while in bed. 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 He had a prolonged hospitalization at [facility] from 12/03-12/30 for R foot osteomyelitis. After discharge he was doing well, ambulating. He also got sober. Over the past sev eral weeks he's developed worsening pain of the R foot. Takes Dixon 10 BID which previously provided good pain relief but recently has not been completely resolving pain. Also with serous and purulent drainage from foot ulcer. Reports waking up with chills and sweats one week ago. Patient states that he is always walking around and he works by passing out flyers. Patient displayed erratic behaviors during the encounter. ROS Negative except for HPI Past Medical History hypertension, diabetes mellitus type 2, dyslipidemia, seizure disorder, depr ession, alcoholism, and right foot osteomyelitis Home Meds Active Scripts Nifedipine (Procardia Xl) 90 Mg Tab.er.24, 90 MG PO DAILY for 10 Days, #15 TAB 1 Refill Prov:LISA PABON MD 12/26/17 Aspirin* (Aspirin* EC) 81 Mg Tablet.dr, 81 MG PO DAILY for 14 Days otc Prov:LISA PABON MD 12/24/17 Reported Medications Atorvastatin* (Atorvastatin*) Unknown Strength Tablet, 1 TAB PO QHS, #30 TAB 05/21/18 Hydrocodone/Acetaminophen (Dixon 10-325 Tablet) 1 Each Tablet, 1 EACH PO BID, TAB 05/21/18 Hydrochlorothiazide* (Hydrochlorothiazide*) 12.5 Mg Tablet, 12.5 MG PO DAILY, #30 TAB 05/21/18 Tamsulosin Hcl* (Tamsulosin Hcl*) 0.4 Mg Cap.er.24h, 0.4 MG PO HS, CAP 05/21/18 Lactobacillus Acidophilus (Probiotic Acidophilus) 1 Each Tablet, 1 EACH PO DAILY, TAB 05/21/18 Sitagliptin* (Januvia*) 100 Mg Tablet, 100 MG PO DAILY, #30 TAB 05/21/18 Lisinopril* (Lisinopril*) 40 Mg Tablet, 40 MG PO DAILY, #30 TAB 05/21/18 Phenytoin* Sodium Extended (Dilantin*) 100 Mg Capsule, 100 MG PO TID, CAP 05/21/18 Amlodipine Besylate* (Amlodipine Besylate*) 10 Mg Tablet, 10 MG PO DAILY, #30 TAB 05/21/18 Thiamine* (Vitamin B-1*) 100 Mg Tablet, 100 MG PO DAILY, TAB 05/21/18 Ferrous Sulfate* (Ferrous Sulfate*) 325 Mg Tabec, 325 MG PO DAILY, TAB 05/21/18 Hydralazine Hcl* (Hydralazine Hcl*) 10 Mg Tablet, 10 MG PO TID, #90 TAB 05/21/18 Glipizide* (Glipizide*) 10 Mg Tablet, 10 MG PO AC BREAKFAST, TAB 05/21/18 Insulin Glargine,Hum.rec.anlog (Basaglar Kwikpen U-100) 100 Unit/1 Ml Insuln.pen, 9 UNIT SC QHS, EA 03/02/18 Gabapentin* (Gabapentin*) 100 Mg Capsule, 200 MG PO BID, #180 CAP 03/02/18 Carbamazepine* (Tegretol Xr*) 200 Mg Tab.sr.12h, 200 MG PO Q12, TAB.SA 08/29/17 Folic Acid* (Folic Acid*) 1 Mg Tablet, 1 MG PO DAILY, TAB 08/29/17 Fluoxetine Hcl* (Prozac*) 40 Mg Capsule, 40 MG PO DAILY, CAP 08/29/17 Discontinued Reported Medications Phenytoin* Sodium Extended (Dilantin*) 100 Mg Capsule, 300 MG PO BID, CAP 08/29/17 Multivitamins* (Theragran*) 1 Tab Tab, 1 TAB PO DAILY, TAB 08/29/17 Discontinued Scripts Naproxen* (Naprosyn*) 500 Mg Tablet, 500 MG PO BID PRN for PAIN AND/OR INFLAMMATION, #30 TAB Prov:RYAN RODRÍGUEZ MD 03/02/18 Sulfamethoxazole/Trimethoprim* (Bactrim Ds* Tablet) 1 Each Tablet, 1 TAB PO BID, #20 TAB Prov:RYAN RODRÍGUEZ MD 03/02/18 Cephalexin* (Keflex*) 500 Mg Capsule, 500 MG PO QID for 10 Days, CAP Prov:RYAN RODRÍGUEZ MD 03/02/18 Insulin Aspart* (Novolog Insulin Pen*) 100 Unit/Ml Soln, 5 UNIT SC WITH MEALS f or 15 Days, #45 1 Refill Prov:LISA PABON MD 12/24/17 Medications Current Medications Sodium Chloride 1,000 ml @ 75 mls/hr [id number] IV Last administered on 05/22/18 09:42; Admin Dose 75 MLS/HR; Start 05/21/18 at 17:17 IV Flush (NS 3 ml) 3 ml PER PROTOCOL IV ; Start 05/21/18 at 17:30 Ondansetron HCl (Zofran Inj) 4 mg Q6H PRN IV NAUSEA/VOMITING; Start 05/21/18 at 17:30 Heparin Sodium (Porcine) (Heparin (5000 Units/1ml)) 5,000 unit Q8 SC Last administered on 05/22/18at 14:51; Admin Dose 5,000 UNIT; Start 05/21/18 at 22:00 Acetaminophen/ Hydrocodone Bitart ([place] (10/325)) 1 tab Q4H PRN PO MODERATE PAIN LEVEL 4-6 Last administered on 05/22/18 09:43; Admin Dose 1 TAB; Start 05/21/18 at 18:00 Morphine Sulfate (morphine) 4 mg Q4H PRN IV BREAKTHROUGH PAIN Last administered on 05/22/18at 11:34; Admin Dose 4 MG; Start 05/21/18 at 18:00 Vancomycin HCl (Vanco Iv Per Pharmacy) VANCOMYCIN PER PHARMACY PER PROTOCOL XX ; Start 05/21/18 at 18:00 Cefepime HCl 50 ml @ 100 mls/hr Q12 IVPB Last administered on 05/22/18at 09:42; Admin Dose 100 MLS/HR; Start 05/22/18 at 01:00 Diagnostic Test (Pha) (Accu-Chek) 1 ea 02 XX ; Start 05/22/18 at 02:00 Insulin Glargine (Lantus) 10 units DAILY@2000 SC Last administered on 05/21/18 23:41; Admin Dose 10 UNITS; Start 05/21/18 at 23:00 Insulin Aspart (Novolog Insulin Pen) NOVOLOG *MODERATE* ALGORITHM WITH MEALS BEDTIME SC ; Start 05/21/18 at 23:30 Aspirin (Halfprin) 81 mg DAILY PO Last administered on 05/22/18 09:40; Admin Dose 81 MG; Start 05/22/18 at 09:00 Carbamazepine (Tegretol Xr) 200 mg Q12 PO Last administered on 05/22/18 09:41; Admin Dose 200 MG; Start 05/21/18 at 22:00 Fluoxetine HCl (Prozac) 40 mg DAILY PO Last administered on 05/22/18 09:41; Admin Dose 40 MG; Start 05/22/18 at 09:00 Folic Acid (Folic Acid) 1 mg DAILY PO Last administered on 05/22/18 09:41; Admin Dose 1 MG; Start 05/22/18 at 09:00 Gabapentin (Neurontin) 200 mg BID PO Last administered on 05/22/18 09:40; Admin Dose 200 MG; Start 05/21/18 at 22:00 Nifedipine (Procardia Xl) 90 mg DAILY PO Last administered on 05/22/18 09:43; Admin Dose 90 MG; Start 05/22/18 at 09:00 Phenytoin (Dilantin) 300 mg BID PO Last administered on 05/22/18 09:41; Admin Dose 300 MG; Start 05/21/18 at 21:00 Atorvastatin Calcium (Lipitor) 40 mg HS PO Last administered on 05/21/18 22:26; Admin Dose 40 MG; Start 05/21/18 at 22:00 Tamsulosin HCl (Flomax) 0.4 mg HS PO Last administered on 05/21/18 22:27; Admin Dose 0.4 MG; Start 05/21/18 at 22:00 Miscellaneous Information 1 ea NOTE XX ; Start 05/21/18 at 18:00 Glucose (Glutose) 15 gm Q15M PRN PO DECREASED GLUCOSE; Start 05/21/18 at 18:00 Glucose (Glutose) 22.5 gm Q15M PRN PO DECREASED GLUCOSE; Start 05/21/18 at 18:00 Dextrose (D50w Syringe) 25 ml Q15M PRN IV DECREASED GLUCOSE; Start 05/21/18 at 18:00 Dextrose (D50w Syringe) 50 ml Q15M PRN IV DECREASED GLUCOSE; Start 05/21/18 at 18:00 Glucagon (Glucagen) 1 mg Q15M PRN IM DECREASED GLUCOSE; Start 05/21/18 at 18:00 Glucose (Glutose) 15 gm Q15M PRN BUCCAL DECREASED GLUCOSE; Start 05/21/18 at 18:00 Vancomycin HCl 250 ml @ 125 mls/hr Q12H IVPB ; Start 05/22/18 at 23:00 Allergies: Coded Allergies: mushroom (Verified Allergy, Severe, 05/21/18) swollen throat, No Known Drug Allergy (Verified Allergy, Unknown, 05/21/18) Past Surgical History Right foot TMA Past Surgical Hx: other Social History Alcohol Use: sober (Since early May) Smoking Status: Former smoker Drug Use: none Exam/Review of Systems Exam Vitals Vital Signs Date Temp Pulse Resp B/P (MAP) Pulse Ox O2 O2 Flow FiO2 Time Delivery Rate 05/22/18 Room Air 16:22 05/22/18 86 16:00 05/22/18 98.0 18 144/80 98 15:41 (101) 05/21/18 21 16:42 Intake and Output 05/21/18 05/21/18 05/22/18 1515:00 23:00 07:00 IntakeIntake Total 660 ml 1450 ml OutputOutput Total 925 ml BalanceBalance 660 ml 525 ml Exam DP/PT pulses palpable Absent protective sensations right foot TMA stump site appreciated Right foot plantar stump site ulcer 2 x 2 x 0.2cm granular wound bed without probing to bone and no purulent drainage appreciated. There is dried hematoma hyperkeratotic tissue to the periphery of the wound Pain on palpation to the lateral aspect of the stump site. Foot X-ray IMPRESSION: Mid metatarsal amputation site with adjacent soft tissue swelling and air. Interval increase in erosive changes or osteolysis of the distal aspect of the fourth and fifth metatarsals compared to prior exam which may represent osteomyelitis. Stable bony hypertrophic changes at the first through third metatarsals. Results Result Diagram: 05/22/18 0505/22/18 0511 Results 24hrs Laboratory Tests Test 05/21/18 22:13 05/22/18 05:11 05/22/18 07:35 05/22/18 11:32 Bedside Glucose 131 102 90 White Blood Count 4.8 # Red Blood Count 3.12 L Hemoglobin 8.6 L Hematocrit 27.7 L Mean Corpuscular 88.8 Volume Mean Corpuscular 27.6 L Hemoglobin Mean Corpuscular 31.0 L Hemoglobin Concent Red Cell 13.2 Distribution Width Platelet Count 412 Mean Platelet Volume 10.0 Immature 0.400 Granulocytes % Neutrophils % 71.4 Lymphocytes % 14.0 L Monocytes % 9.4 Eosinophils % 4.2 Basophils % 0.6 Nucleated Red Blood 0.0 Cells % Immature 0.020 Granulocytes # Neutrophils # 3.4 Lymphocytes # 0.7 L Monocytes # 0.5 Eosinophils # 0.2 Basophils # 0.0 Nucleated Red Blood 0.0 Cells # Sodium Level 139 Potassium Level 6.0 H Chloride Level 103 Carbon Dioxide Level 24 Anion Gap 12 Blood Urea Nitrogen 26 H Creatinine 1.53 H Est Glomerular 48 L Filtrat Rate mL/min Glucose Level 112 # Hemoglobin A1c 7.5 H Calcium Level 9.5 Phosphorus Level 4.5 Magnesium Level 1.7 Total Bilirubin 0.1 L Direct Bilirubin 0.00 Indirect Bilirubin 0.1 Aspartate Amino 29 Transf (AST/SGOT) Alanine 41 Aminotransferase (AL T/SGPT) Alkaline Phosphatase 140 H Total Protein 7.7 Albumin 4.3 Globulin 3.40 H Albumin/Globulin 1.26 Ratio Triglycerides Level 95 Cholesterol Level 176 LDL Cholesterol, 91 Calculated HDL Cholesterol 66 Cholesterol/HDL 2.6 Ratio Thyroid Stimulating 3.420 Hormone (TSH) Test 05/22/18 17:23 Bedside Glucose 106 Medications Medication Current Medications Sodium Chloride 1,000 ml @ 75 mls/hr [id number] IV Last administered on 05/22/18at 09:42; Admin Dose 75 MLS/HR; Start 05/21/18 at 17:17 IV Flush (NS 3 ml) 3 ml PER PROTOCOL IV ; Start 05/21/18 at 17:30 Ondansetron HCl (Zofran Inj) 4 mg Q6H PRN IV NAUSEA/VOMITING; Start 05/21/18 at 17:30 Heparin Sodium (Porcine) (Heparin (5000 Units/1ml)) 5,000 unit Q8 SC Last administered on 05/22/18 14:51; Admin Dose 5,000 UNIT; Start 05/21/18 at 22:00 Acetaminophen/ Hydrocodone Bitart ([place]ixon (10/325)) 1 tab Q4H PRN PO MODERATE PAIN LEVEL 4-6 Last administered on 05/22/18 09:43; Admin Dose 1 TAB; Start 05/21/18 at 18:00 Morphine Sulfate (morphine) 4 mg Q4H PRN IV BREAKTHROUGH PAIN Last administered on 05/22/18 11:34; Admin Dose 4 MG; Start 05/21/18 at 18:00 Vancomycin HCl (Vanco Iv Per Pharmacy) VANCOMYCIN PER PHARMACY PER PROTOCOL XX ; Start 05/21/18 at 18:00 Cefepime HCl 50 ml @ 100 mls/hr Q12 IVPB Last administered on 05/22/18 09:42; Admin Dose 100 MLS/HR; Start 05/22/18 at 01:00 Diagnostic Test (Pha) (Accu-Chek) 1 XX ; Start 05/22/18 at 02:00 Insulin Glargine (Lantus) 10 units DAILY@2000 SC Last administered on 05/21/18 23:41; Admin Dose 10 UNITS; Start 05/21/18 at 23:00 Insulin Aspart (Novolog Insulin Pen) NOVOLOG *MODERATE* ALGORITHM WITH MEALS BEDTIME SC ; Start 05/21/18 at 23:30 Aspirin (Halfprin) 81 mg DAILY PO Last administered on 05/22/18 09:40; Admin Dose 81 MG; Start 05/22/18 at 09:00 Carbamazepine (Tegretol Xr) 200 mg Q12 PO Last administered on 05/22/18 09:41; Admin Dose 200 MG; Start 05/21/18 at 22:00 Fluoxetine HCl (Prozac) 40 mg DAILY PO Last administered on 05/22/18 09:41; Admin Dose 40 MG; Start 05/22/18 at 09:00 Folic Acid (Folic Acid) 1 mg DAILY PO Last administered on 05/22/18 09:41; Admin Dose 1 MG; Start 05/22/18 at 09:00 Gabapentin (Neurontin) 200 mg BID PO Last administered on 05/22/18 09:40; Admin Dose 200 MG; Start 05/21/18 at 22:00 Nifedipine (Procardia Xl) 90 mg DAILY PO Last administered on 05/22/18at 09:43; Admin Dose 90 MG; Start 05/22/18 at 09:00 Phenytoin (Dilantin) 300 mg BID PO Last administered on 05/22/18at 09:41; Admin Dose 300 MG; Start 05/21/18 at 21:00 Atorvastatin Calcium (Lipitor) 40 mg HS PO Last administered on 05/21/18at 22:26; Admin Dose 40 MG; Start 05/21/18 at 22:00 Tamsulosin HCl (Flomax) 0.4 mg HS PO Last administered on 05/21/18at 22:27; Admin Dose 0.4 MG; Start 05/21/18 at 22:00 Miscellaneous Information 1 ea NOTE XX ; Start 05/21/18 at 18:00 Glucose (Glutose) 15 gm Q15M PRN PO DECREASED GLUCOSE; Start 05/21/18 at 18:00 Glucose (Glutose) 22.5 gm Q15M PRN PO DECREASED GLUCOSE; Start 05/21/18 at 18:00 Dextrose (D50w Syringe) 25 ml Q15M PRN IV DECREASED GLUCOSE; Start 05/21/18 at 18:00 Dextrose (D50w Syringe) 50 ml Q15M PRN IV DECREASED GLUCOSE; Start 05/21/18 at 18:00 Glucagon (Glucagen) 1 mg Q15M PRN IM DECREASED GLUCOSE; Start 05/21/18 at 18:00 Glucose (Glutose) 15 gm Q15M PRN BUCCAL DECREASED GLUCOSE; Start 05/21/18 at 18:00 Vancomycin HCl 250 ml @ 125 mls/hr Q12H IVPB ; Start 05/22/18 at 23:00 BRYANT GARCIA DPM May 22, 2018 18:55
[2018-05-22] MEDS: ATORVASTATIN 40 MG TAB PO SCH (21:13)
[2018-05-22] MEDS: TAMSULOSIN (SR) 0.4 MG CAP PO SCH (21:15)
[2018-05-22] MEDS: INSULIN GLARGINE [LANTus] (100 UNITS/ML) SYG SC SCH (21:39)
[2018-05-22] MEDS ORDERED: AL HYDROX/MG HYDROX/SIMETH 30 ML CUP PO PRN (23:30)
[2018-05-22] MEDS: VANCOMYCIN 1 GM 250 ML IVPB SCH (23:32)
[2018-05-23] VITALS (11 sets, daily range): BP systolic 121–151; BP diastolic 66–82; PULSE 67–89; RESP 18–19
[2018-05-23] MEDS: ACCU-CHEK XX SCH (01:42)
[2018-05-23] MEDS: morphine 4 MG/ML VIAL IV PRN ×4 (04:26→22:50)
[2018-05-23] MEDS: HEPARIN 5,000 UNIT/1 ML VIAL SC SCH ×3 (06:00→21:20)
[2018-05-23] MEDS: PANTOPRAZOLE (EC) 40 MG TAB PO SCH (06:17)
[2018-05-23] MEDS: SOD CHLORIDE 0.9% 1,000 ML IV SCH (06:22)
[2018-05-23] MEDS: INSULIN ASPART [NOVOLOG] 3 ML PEN SC SCH ×4 (08:00→21:00)
[2018-05-23] MEDS: PHENYTOIN 100 MG CAP PO SCH ×2 (09:47→22:49)
[2018-05-23] MEDS: ASPIRIN (EC) 81 MG TAB PO SCH (09:48)
[2018-05-23] MEDS: NIFEdipine (XL) 90 MG TAB PO SCH (09:48)
[2018-05-23] MEDS: GABAPENTIN 100 MG CAP PO SCH ×2 (09:48→21:22)
[2018-05-23] MEDS: carBAMAZepine (XR) 200 MG TABSR PO SCH ×2 (09:48→21:23)
[2018-05-23] MEDS: FLUOXETINE 20 MG CAP PO SCH (09:48)
[2018-05-23] MEDS: FOLIC ACID 1 MG TAB PO SCH (09:48)
[2018-05-23] MEDS: CEFEPIME 2GM/50 ML (PMX) 50 ML IVPB SCH ×2 (09:49→22:37)
--- NOTE | 2018-05-23 11:11 | PN ---
Date/Time of Note Date/Time of Note DATE: 05/23/18 TIME: 11:02 Assessment/Plan VTE Prophylaxis Risk score (from [facility])>0 risk: 3 SCD applied (from [facility]): No SCD contraindicated: other Pharmacological prophylaxis: other Pharm contraindication: other Lines/Catheters IV Catheter Type (from [facility] Peripheral IV Urinary Cath still in place: No Assessment/Plan Assessment/Plan - Hyperkalemia - Kayexalate; am labs fu 1. acute kidney injury 2/2 ATN from osteomyelitis 2. 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 Right foot osteomyelitis 4. Anemia of CKD/Anemia of chronic disease 5. H/O DM II, 6. H/o HTN 7. H/o HL Plan: IVF NS at 75 cc/hr UO- 3.5 L IV abx cefepime and vancomycin, renally dose all abx and monitor electrolytes previously had a full CKD work up - no need to repeat it thanks for consultation We will continue to follow up Patient seen in collaboration with Dr Dana Hopkins. Dw staff C/O right foot pain- pain med effective -K elevated - UO 3.5 L No new events reported last night per staff Result Diagram: 05/23/18 0504 05/23/18 0504 Results 24hrs Laboratory Tests Test 05/22/18 11:32 05/22/18 17:23 05/22/18 21:34 05/23/18 01:07 Bedside Glucose 90 106 121 152 Test 05/23/18 05:04 05/23/18 08:13 White Blood Count 4.9 Red Blood Count 3.23 L Hemoglobin 9.1 L Hematocrit 28.4 L Mean Corpuscular 87.9 Volume Mean Corpuscular 28.2 L Hemoglobin Mean Corpuscular 32.0 Hemoglobin Concent Red Cell 12.9 Distribution Width Platelet Count 421 H Mean Platelet Volume 10.0 Immature 0.200 Granulocytes % Neutrophils % 71.8 Lymphocytes % 13.2 L Monocytes % 8.9 Eosinophils % 5.1 Basophils % 0.8 Nucleated Red Blood 0.0 Cells % Immature 0.010 Granulocytes # Neutrophils # 3.5 Lymphocytes # 0.7 L Monocytes # 0.4 Eosinophils # 0.3 Basophils # 0.0 Nucleated Red Blood 0.0 Cells # Sodium Level 138 Potassium Level 5.3 H Chloride Level 105 Carbon Dioxide Level 23 Anion Gap 10 Blood Urea Nitrogen 24 H Creatinine 1.38 H Est Glomerular 54 L Filtrat Rate mL/min Glucose Level 90 Calcium Level 9.7 Phosphorus Level 4.4 Magnesium Level 1.7 Total Bilirubin 0.1 L Direct Bilirubin 0.00 Indirect Bilirubin 0.1 Aspartate Amino 25 Transf (AST/SGOT) Alanine 34 Aminotransferase (AL T/SGPT) Alkaline Phosphatase 153 H Total Protein 8.0 Albumin 4.5 Globulin 3.50 H Albumin/Globulin 1.28 Ratio Bedside Glucose 102 Subjective 24 Hr Interval Summary Free Text/Dictation C/O right foot pain- pain med effective -K elevated - UO 3.5 L No new events reported last night per staff Eyes: no complaints ENT: no complaints Respiratory: no complaints Cardiovascular: no complaints Gastrointestinal: no complaints Musculoskeletal: bone/joint pain, restricted range of motion Skin: erythema Exam/Review of Systems Exam Vitals Vital Signs Date Temp Pulse Resp B/P (MAP) Pulse Ox O2 O2 Flow FiO2 Time Delivery Rate 05/23/18 98.3 77 19 137/66 97 10:57 (89) 05/22/18 Room Air 16:22 05/21/18 21 16:42 Intake and Output 05/22/18 05/22/18 05/23/18 1515:00 23:00 07:00 IntakeIntake Total 300 ml 2550 ml 2750 ml OutputOutput Total 1100 ml 2450 ml BalanceBalance 300 ml 1450 ml 300 ml Constitutional: alert, oriented, well developed Psych: nl mood/affect Head: atraumatic Eyes: EOMI, nl lids, nl sclera ENMT: nl external ears & nose Neck: non-tender Respiratory: clear to auscultation Cardiovascular: nl pulses, other (S1S2) Gastrointestinal: soft, non-tender Musculoskeletal: joint tenderness, range of motion Extremities: normal pulses, other (ruht foot- elastic dressin -DDI) Neurological: nl mental status, nl speech Results Results 24hrs Laboratory Tests Test 05/22/18 11:32 05/22/18 17:23 05/22/18 21:34 05/23/18 01:07 Bedside Glucose 90 106 121 152 Test 05/23/18 05:04 05/23/18 08:13 White Blood Count 4.9 Red Blood Count 3.23 L Hemoglobin 9.1 L Hematocrit 28.4 L Mean Corpuscular 87.9 Volume Mean Corpuscular 28.2 L Hemoglobin Mean Corpuscular 32.0 Hemoglobin Concent Red Cell 12.9 Distribution Width Platelet Count 421 H Mean Platelet Volume 10.0 Immature 0.200 Granulocytes % Neutrophils % 71.8 Lymphocytes % 13.2 L Monocytes % 8.9 Eosinophils % 5.1 Basophils % 0.8 Nucleated Red Blood 0.0 Cells % Immature 0.010 Granulocytes # Neutrophils # 3.5 Lymphocytes # 0.7 L Monocytes # 0.4 Eosinophils # 0.3 Basophils # 0.0 Nucleated Red Blood 0.0 Cells # Sodium Level 138 Potassium Level 5.3 H Chloride Level 105 Carbon Dioxide Level 23 Anion Gap 10 Blood Urea Nitrogen 24 H Creatinine 1.38 H Est Glomerular 54 L Filtrat Rate mL/min Glucose Level 90 Calcium Level 9.7 Phosphorus Level 4.4 Magnesium Level 1.7 Total Bilirubin 0.1 L Direct Bilirubin 0.00 Indirect Bilirubin 0.1 Aspartate Amino 25 Transf (AST/SGOT) Alanine 34 Aminotransferase (AL T/SGPT) Alkaline Phosphatase 153 H Total Protein 8.0 Albumin 4.5 Globulin 3.50 H Albumin/Globulin 1.28 Ratio Bedside Glucose 102 Medications Medication Current Medications Sodium Chloride 1,000 ml @ 75 mls/hr [id number] IV Last administered on 05/23/18at 06:22; Admin Dose 75 MLS/HR; Start 05/21/18 at 17:17 IV Flush (NS 3 ml) 3 ml PER PROTOCOL IV ; Start 05/21/18 at 17:30 Ondansetron HCl (Zofran Inj) 4 mg Q6H PRN IV NAUSEA/VOMITING; Start 05/21/18 at 17:30 Heparin Sodium (Porcine) (Heparin (5000 Units/1ml)) 5,000 unit Q8 SC Last administered on 05/22/18at 21:28; Admin Dose 5,000 UNIT; Start 05/21/18 at 22:00 Acetaminophen/ Hydrocodone Bitart ([place] (10/325)) 1 tab Q4H PRN PO MODERATE P AIN LEVEL 4-6 Last administered on 05/22/18at 09:43; Admin Dose 1 TAB; Start 05/21/18 at 18:00 Morphine Sulfate (morphine) 4 mg Q4H PRN IV BREAKTHROUGH PAIN Last administered on 05/23/18at 09:52; Admin Dose 4 MG; Start 05/21/18 at 18:00 Vancomycin HCl (Vanco Iv Per Pharmacy) VANCOMYCIN PER PHARMACY PER PROTOCOL XX ; Start 05/21/18 at 18:00 Cefepime HCl 50 ml @ 100 mls/hr Q12 IVPB Last administered on 05/23/18 09:49; Admin Dose 100 MLS/HR; Start 05/22/18 at 01:00 Diagnostic Test (Pha) (Accu-Chek) 1 ea 02 XX Last administered on 05/23/18 01:42; Admin Dose 1 EA; Start 05/22/18 at 02:00 Insulin Glargine (Lantus) 10 units DAILY@2000 SC Last administered on 05/22/18 21:39; Admin Dose 10 UNITS; Start 05/21/18 at 23:00 Insulin Aspart (Novolog Insulin Pen) NOVOLOG *MODERATE* ALGORITHM WITH MEALS BEDTIME SC ; Start 05/21/18 at 23:30 Aspirin (Halfprin) 81 mg DAILY PO Last administered on 05/23/18 09:48; Admin Dose 81 MG; Start 05/22/18 at 09:00 Carbamazepine (Tegretol Xr) 200 mg Q12 PO Last administered on 05/23/18 09:48; Admin Dose 200 MG; Start 05/21/18 at 22:00 Fluoxetine HCl (Prozac) 40 mg DAILY PO Last administered on 05/23/18 09:48; Admin Dose 40 MG; Start 05/22/18 at 09:00 Folic Acid (Folic Acid) 1 mg DAILY PO Last administered on 05/23/18 09:48; Admin Dose 1 MG; Start 05/22/18 at 09:00 Gabapentin (Neurontin) 200 mg BID PO Last administered on 05/23/18 09:48; Admin Dose 200 MG; Start 05/21/18 at 22:00 Nifedipine (Procardia Xl) 90 mg DAILY PO Last administered on 05/23/18 09:48; Admin Dose 90 MG; Start 05/22/18 at 09:00 Phenytoin (Dilantin) 300 mg BID PO Last administered on 05/23/18 09:47; Admin Dose 300 MG; Start 05/21/18 at 21:00 Atorvastatin Calcium (Lipitor) 40 mg HS PO Last administered on 05/22/18 21:13; Admin Dose 40 MG; Start 05/21/18 at 22:00 Tamsulosin HCl (Flomax) 0.4 mg HS PO Last administered on 05/22/18at 21:15; Admin Dose 0.4 MG; Start 05/21/18 at 22:00 Miscellaneous Information 1 ea NOTE XX ; Start 05/21/18 at 18:00 Glucose (Glutose) 15 gm Q15M PRN PO DECREASED GLUCOSE; Start 05/21/18 at 18:00 Glucose (Glutose) 22.5 gm Q15M PRN PO DECREASED GLUCOSE; Start 05/21/18 at 18:00 Dextrose (D50w Syringe) 25 ml Q15M PRN IV DECREASED GLUCOSE; Start 05/21/18 at 18:00 Dextrose (D50w Syringe) 50 ml Q15M PRN IV DECREASED GLUCOSE; Start 05/21/18 at 18:00 Glucagon (Glucagen) 1 mg Q15M PRN IM DECREASED GLUCOSE; Start 05/21/18 at 18:00 Glucose (Glutose) 15 gm Q15M PRN BUCCAL DECREASED GLUCOSE; Start 05/21/18 at 18:00 Vancomycin HCl 250 ml @ 125 mls/hr Q12H IVPB Last administered on 05/22/18at 23:32; Admin Dose 125 MLS/HR; Start 05/22/18 at 23:00 Simethicone (Mylicon) 80 mg TID PRN PO DISTENSION/GAS/BLOATING; Start 05/22/18 at 23:30 Al Hydrox/Mg Hydrox/Simethicone (Mag-Al Plus) 30 ml Q6H PRN PO GASTROINTESTINAL UPSET Last administered on 05/22/18at 23:32; Admin Dose 30 ML; Start 05/22/18 at 23:30 Pantoprazole (Protonix Tab) 40 mg DAILY@06 PO Last administered on 05/23/18at 06:17; Admin Dose 40 MG; Start 05/23/18 at 06:00 SITA GAY May 23, 2018 11:11
[2018-05-23] MEDS ORDERED: NA POLYST SULFON 15 GM/60 ML BTL PO ONE (11:30)
[2018-05-23] MEDS: VANCOMYCIN 1 GM 250 ML IVPB SCH ×2 (11:45→23:23)
--- NOTE | 2018-05-23 15:20 | PN ---
Date/Time of Note Date/Time of Note DATE: 05/23/18 TIME: 15:18 Assessment/Plan VTE Prophylaxis Risk score (from Ns)>0 risk: 2 SCD applied (from Ns): No SCD contraindicated: bilateral LE trauma Pharmacological prophylaxis: heparin Lines/Catheters IV Catheter Type (from Nrs): Peripheral IV Urinary Cath still in place: No Assessment/Plan Assessment/Plan 53-year-old man with comorbidities including hypertension, diabetes mellitus type 2, dyslipidemia, seizure disorder, depression, alcoholism, and right foot osteomyelitis who presents with worsening R foot osteo. # R foot osteo - No evidence of systemic sepsis - Empiric vanc and cefepime. - ID following previously, will consult Nera. - Dr Laureano following and debriding. - Pain control with norco #HAZEL #Hyperkalemia - HAZEL may be due to heavy NSAID use from pain. Now slightly improved since admission - Medical management with kayexalate - Dr. Hopkins following # Diabetes mellitus type 2. -Start the patient on sliding scale insulin along with pre-meal insulin and basal insulin. -Obtain hemoglobin A1c to evaluate the blood glucose control over the past few weeks. # Hypertension. -Resume antihypertensives. -Hold ARB given the patient's renal function. # Alcohol abuse. - He reports weeks of sobriety # Depression. -Resume SSRIs. DVT: heparin GI: None Result Diagram: 05/23/18 0504 05/23/18 0504 Subjective 24 Hr Interval Summary Free Text/Dictation No acute overnight events. Patient feeling well. Ambulating on his R heel despite being nonweightbearing on that leg because he doesn't have any assistive devices here. Exam/Review of Systems Exam Vitals Vital Signs Date Temp Pulse Resp B/P (MAP) Pulse Ox O2 O2 Flow FiO2 Time Delivery Rate 05/23/18 97.4 74 19 141/66 96 15:11 (91) 05/22/18 Room Air 16:22 05/21/18 21 16:42 Intake and Output 05/22/18 05/22/18 05/23/18 1515:00 23:00 07:00 IntakeIntake Total 300 ml 2550 ml 2750 ml OutputOutput Total 1100 ml 2450 ml BalanceBalance 300 ml 1450 ml 300 ml Exam Gen: Well developed man in no acute distress, lying in gurney Eyes: PERRL, no icterus HEENT: Moist mucous membranes, a dentulous, clear oropharynx Neck: Distended JVD. No lymphadenopathy Card: Regular rate and rhythm, no murmurs Pulm: Clear to auscultation bilaterally Abd: Soft, nontender, nondistended. Ext: R foot bandaged. L foot has black escar on tip of 1st and 2nd digits. Good peripheral pulses. Skin: Otherwise warm, dry, well perfused. Results Results 24hrs Laboratory Tests Test 05/22/18 17:23 05/22/18 21:34 05/23/18 01:07 05/23/18 05:04 Bedside Glucose 106 121 152 White Blood Count 4.9 Red Blood Count 3.23 L Hemoglobin 9.1 L Hematocrit 28.4 L Mean Corpuscular 87.9 Volume Mean Corpuscular 28.2 L Hemoglobin Mean Corpuscular 32.0 Hemoglobin Concent Red Cell 12.9 Distribution Width Platelet Count 421 H Mean Platelet Volume 10.0 Immature 0.200 Granulocytes % Neutrophils % 71.8 Lymphocytes % 13.2 L Monocytes % 8.9 Eosinophils % 5.1 Basophils % 0.8 Nucleated Red Blood 0.0 Cells % Immature 0.010 Granulocytes # Neutrophils # 3.5 Lymphocytes # 0.7 L Monocytes # 0.4 Eosinophils # 0.3 Basophils # 0.0 Nucleated Red Blood 0.0 Cells # Sodium Level 138 Potassium Level 5.3 H Chloride Level 105 Carbon Dioxide Level 23 Anion Gap 10 Blood Urea Nitrogen 24 H Creatinine 1.38 H Est Glomerular 54 L Filtrat Rate mL/min Glucose Level 90 Calcium Level 9.7 Phosphorus Level 4.4 Magnesium Level 1.7 Total Bilirubin 0.1 L Direct Bilirubin 0.00 Indirect Bilirubin 0.1 Aspartate Amino 25 Transf (AST/SGOT) Alanine 34 Aminotransferase (AL T/SGPT) Alkaline Phosphatase 153 H Total Protein 8.0 Albumin 4.5 Globulin 3.50 H Albumin/Globulin 1.28 Ratio Test 05/23/18 08:13 05/23/18 11:47 Bedside Glucose 102 146 Medications Medication Current Medications Sodium Chloride 1,000 ml @ 75 mls/hr [id number] IV Last administered on 05/23/18at 06:22; Admin Dose 75 MLS/HR; Start 05/21/18 at 17:17 IV Flush (NS 3 ml) 3 ml PER PROTOCOL IV ; Start 05/21/18 at 17:30 Ondansetron HCl (Zofran Inj) 4 mg Q6H PRN IV NAUSEA/VOMITING; Start 05/21/18 at 17:30 Heparin Sodium (Porcine) (Heparin (5000 Units/1ml)) 5,000 unit Q8 SC Last administered on 05/23/18 14:04; Admin Dose 5,000 UNIT; Start 05/21/18 at 22:00 Acetaminophen/ Hydrocodone Bitart ([place] (10/325)) 1 tab Q4H PRN PO MODERATE PAIN LEVEL 4-6 Last administered on 05/22/18 09:43; Admin Dose 1 TAB; Start 05/21/18 at 18:00 Morphine Sulfate (morphine) 4 mg Q4H PRN IV BREAKTHROUGH PAIN Last administered on 05/23/18 09:52; Admin Dose 4 MG; Start 05/21/18 at 18:00 Vancomycin HCl (Vanco Iv Per Pharmacy) VANCOMYCIN PER PHARMACY PER PROTOCOL XX ; Start 05/21/18 at 18:00 Cefepime HCl 50 ml @ 100 mls/hr Q12 IVPB Last administered on 05/23/18 09:49; Admin Dose 100 MLS/HR; Start 05/22/18 at 01:00 Diagnostic Test (Pha) (Accu-Chek) 1 ea 02 XX Last administered on 05/23/18 01:42; Admin Dose 1 EA; Start 05/22/18 at 02:00 Insulin Glargine (Lantus) 10 units DAILY@2000 SC Last administered on 05/22/18 21:39; Admin Dose 10 UNITS; Start 05/21/18 at 23:00 Insulin Aspart (Novolog Insulin Pen) NOVOLOG *MODERATE* ALGORITHM WITH MEALS BEDTIME SC ; Start 05/21/18 at 23:30 Aspirin (Halfprin) 81 mg DAILY PO Last administered on 05/23/18 09:48; Admin Dose 81 MG; Start 05/22/18 at 09:00 Carbamazepine (Tegretol Xr) 200 mg Q12 PO Last administered on 05/23/18 09:48; Admin Dose 200 MG; Start 05/21/18 at 22:00 Fluoxetine HCl (Prozac) 40 mg DAILY PO Last administered on 05/23/18 09:48; Admin Dose 40 MG; Start 05/22/18 at 09:00 Folic Acid (Folic Acid) 1 mg DAILY PO Last administered on 05/23/18 09:48; Admin Dose 1 MG; Start 05/22/18 at 09:00 Gabapentin (Neurontin) 200 mg BID PO Last administered on 05/23/18 09:48; Admin Dose 200 MG; Start 05/21/18 at 22:00 Nifedipine (Procardia Xl) 90 mg DAILY PO Last administered on 05/23/18 09:48; Admin Dose 90 MG; Start 05/22/18 at 09:00 Phenytoin (Dilantin) 300 mg BID PO Last administered on 05/23/18 09:47; Admin Dose 300 MG; Start 05/21/18 at 21:00 Atorvastatin Calcium (Lipitor) 40 mg HS PO Last administered on 05/22/18 21:13; Admin Dose 40 MG; Start 05/21/18 at 22:00 Tamsulosin HCl (Flomax) 0.4 mg HS PO Last administered on 05/22/18at 21:15; Admin Dose 0.4 MG; Start 05/21/18 at 22:00 Miscellaneous Information 1 ea NOTE XX ; Start 05/21/18 at 18:00 Glucose (Glutose) 15 gm Q15M PRN PO DECREASED GLUCOSE; Start 05/21/18 at 18:00 Glucose (Glutose) 22.5 gm Q15M PRN PO DECREASED GLUCOSE; Start 05/21/18 at 18:00 Dextrose (D50w Syringe) 25 ml Q15M PRN IV DECREASED GLUCOSE; Start 05/21/18 at 18:00 Dextrose (D50w Syringe) 50 ml Q15M PRN IV DECREASED GLUCOSE; Start 05/21/18 at 18:00 Glucagon (Glucagen) 1 mg Q15M PRN IM DECREASED GLUCOSE; Start 05/21/18 at 18:00 Glucose (Glutose) 15 gm Q15M PRN BUCCAL DECREASED GLUCOSE; Start 05/21/18 at 18:00 Vancomycin HCl 250 ml @ 125 mls/hr Q12H IVPB Last administered on 05/23/18at 11:45; Admin Dose 125 MLS/HR; Start 05/22/18 at 23:00 Simethicone (Mylicon) 80 mg TID PRN PO DISTENSION/GAS/BLOATING; Start 05/22/18 at 23:30 Al Hydrox/Mg Hydrox/Simethicone (Mag-Al Plus) 30 ml Q6H PRN PO GASTROINTESTINAL UPSET Last administered on 05/22/18at 23:32; Admin Dose 30 ML; Start 05/22/18 at 23:30 Pantoprazole (Protonix Tab) 40 mg DAILY@06 PO Last administered on 05/23/18at 06:17; Admin Dose 40 MG; Start 05/23/18 at 06:00 Miscellaneous Information (*Rx Drug Level Order Reminder*) VANCO TROUGH @ 2,200 ONCE ONCE XX ; Start 05/23/18 at 22:00; Stop 05/23/18 at 22:01 HOLLIS BROWN MD May 23, 2018 15:20
[2018-05-23] MEDS: INSULIN GLARGINE [LANTus] (100 UNITS/ML) SYG SC SCH (21:19)
[2018-05-23] MEDS: ATORVASTATIN 40 MG TAB PO SCH (21:21)
[2018-05-23] MEDS: TAMSULOSIN (SR) 0.4 MG CAP PO SCH (21:22)
[2018-05-24] MEDS: ACCU-CHEK XX SCH (02:00)
[2018-05-24 02:55] VITALS: BP 124/82; PULSE 79; RESP 18
[2018-05-24] MEDS: HEPARIN 5,000 UNIT/1 ML VIAL SC SCH ×3 (06:13→21:18)
[2018-05-24] MEDS: PANTOPRAZOLE (EC) 40 MG TAB PO SCH (06:14)
[2018-05-24] MEDS: morphine 4 MG/ML VIAL IV PRN ×4 (06:20→21:20)
[2018-05-24] MEDS: INSULIN ASPART [NOVOLOG] 3 ML PEN SC SCH ×4 (08:00→21:18)
[2018-05-24] MEDS: ASPIRIN (EC) 81 MG TAB PO SCH (08:22)
[2018-05-24] MEDS: FOLIC ACID 1 MG TAB PO SCH (08:22)
[2018-05-24] MEDS: NIFEdipine (XL) 90 MG TAB PO SCH (08:22)
[2018-05-24] MEDS: CEFEPIME 2GM/50 ML (PMX) 50 ML IVPB SCH ×2 (08:22→21:16)
[2018-05-24] MEDS: GABAPENTIN 100 MG CAP PO SCH ×2 (08:23→20:01)
[2018-05-24] MEDS: carBAMAZepine (XR) 200 MG TABSR PO SCH ×2 (08:23→20:02)
[2018-05-24] MEDS: PHENYTOIN 100 MG CAP PO SCH ×2 (08:23→23:14)
[2018-05-24 08:41] VITALS: BP 164/91; PULSE 78; RESP 18
[2018-05-24] MEDS: FLUOXETINE 20 MG CAP PO SCH (10:20)
[2018-05-24 10:52] VITALS: BP 155/87; PULSE 80
[2018-05-24] MEDS ORDERED: VANCOMYCIN 750 MG (PMX) 250 ML IVPB SCH (11:00)
[2018-05-24] MEDS: VANCOMYCIN 750 MG (PMX) 250 ML IVPB SCH ×2 (11:40→23:15)
[2018-05-24] MEDS ORDERED: NA POLYST SULFON 15 GM/60 ML BTL PO ONE ×2 (12:00→12:30)
--- NOTE | 2018-05-24 12:06 | CONS ---
Assessment/Plan Assessment/Plan Assessment/Plan (Daily) - Hyperkalemia - Kayexalate; am labs fu - Hyperkaleia- Kayexalate; am BMP 1. acute kidney injury 2/2 ATN from osteomyelitis 2. 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 Right foot osteomyelitis 4. Anemia of CKD/Anemia of chronic disease 5. H/O DM II, 6. H/o HTN 7. H/o HL Plan: BUN/Cr- 27/1.29; K elevated IVF NS at 75 cc/hr UO- 2.1 L IV abx cefepime and vancomycin, renally dose all abx and monitor electrolytes previously had a full CKD work up - no need to repeat it thanks for consultation We will continue to follow up Patient seen in collaboration with Dr Dana Hopkins. Dw staff Consultation Date/Type/Reason Admit Date/Time May 21, 2018 at 17:16 Initial Consult Date 05/22/18 Type of Consult NEPHROLOGY Requesting Provider: HOLLIS BROWN MD Date/Time of Note DATE: 05/24/18 TIME: 11:57 24 HR Interval Summary Free Text/Dictation -C/O right foot pain- pain med effective -K elevated - UO 2.1 L No new events reported last night per staff Constitutional: improved Exam/Review of Systems Exam Vitals Vital Signs Date Temp Pulse Resp B/P (MAP) Pulse Ox O2 O2 Flow FiO2 Time Delivery Rate 05/24/18 80 155/87 10:52 (109) 05/24/18 98.4 18 96 Room Air 08:41 05/21/18 21 16:42 Intake and Output 05/23/18 05/23/18 05/24/18 1414:59 22:59 06:59 IntakeIntake Total 700 ml 820 ml OutputOutput Total 950 ml 1200 ml BalanceBalance -950 ml -500 ml 820 ml Constitutional: alert, well developed Psych: nl mood/affect Head: atraumatic Eyes: nl conjunctiva ENMT: nl external ears & nose Neck: non-tender Respiratory: clear to auscultation Cardiovascular: nl pulses, other (s1s2) Gastrointestinal: non-tender Musculoskeletal: joint tenderness, range of motion Extremities: normal pulses, other (Riht foot- DDI) Neurological: nl speech Skin: other Lymph: nontender Results Result Diagram: 05/24/18 0607 05/24/18 0605 Results 24hrs Laboratory Tests Test 05/23/18 17:07 05/23/18 21:17 05/23/18 21:56 05/24/18 06:05 Bedside Glucose 146 146 Vancomycin Level 20.2 *H Trough Sodium Level 140 Potassium Level 5.8 H Chloride Level 105 Carbon Dioxide Level 26 Anion Gap 9 Blood Urea Nitrogen 27 H Creatinine 1.29 H Est Glomerular 58 L Filtrat Rate mL/min Glucose Level 78 Calcium Level 10.0 Test 05/24/18 06:07 05/24/18 08:19 05/24/18 11:41 White Blood Count 4.8 Red Blood Count 3.32 L Hemoglobin 9.2 L Hematocrit 29.2 L Mean Corpuscular 88.0 Volume Mean Corpuscular 27.7 L Hemoglobin Mean Corpuscular 31.5 L Hemoglobin Concent Red Cell 12.8 Distribution Width Platelet Count 432 H Mean Platelet Volume 9.8 Immature 0.400 Granulocytes % Neutrophils % 66.4 Lymphocytes % 18.1 Monocytes % 8.5 Eosinophils % 5.6 Basophils % 1.0 Nucleated Red Blood 0.0 Cells % Immature 0.020 Granulocytes # Neutrophils # 3.2 Lymphocytes # 0.9 Monocytes # 0.4 Eosinophils # 0.3 Basophils # 0.1 Nucleated Red Blood 0.0 Cells # Bedside Glucose 70 261 H Medications Medication Current Medications IV Flush (NS 3 ml) 3 ml PER PROTOCOL IV ; Start 05/21/18 at 17:30 Ondansetron HCl (Zofran Inj) 4 mg Q6H PRN IV NAUSEA/VOMITING; Start 05/21/18 at 17:30 Heparin Sodium (Porcine) (Heparin (5000 Units/1ml)) 5,000 unit Q8 SC Last administered on 05/24/18at 06:13; Admin Dose 5,000 UNIT; Start 05/21/18 at 22:00 Acetaminophen/ Hydrocodone Bitart ([place] (10/325)) 1 tab Q4H PRN PO MODERATE PAIN LEVEL 4-6 Last administered on 05/22/18at 09:43; Admin Dose 1 TAB; Start 05/21/18 at 18:00 Morphine Sulfate (morphine) 4 mg Q4H PRN IV BREAKTHROUGH PAIN Last administered on 05/24/18at 11:41; Admin Dose 4 MG; Start 05/21/18 at 18:00 Vancomycin HCl (Vanco Iv Per Pharmacy) VANCOMYCIN PER PHARMACY PER PROTOCOL XX ; Start 05/21/18 at 18:00 Cefepime HCl 50 ml @ 100 mls/hr Q12 IVPB Last administered on 05/24/18 08:22; Admin Dose 100 MLS/HR; Start 05/22/18 at 01:00 Diagnostic Test (Pha) (Accu-Chek) 1 ea 02 XX Last administered on 05/23/18 01:42; Admin Dose 1 EA; Start 05/22/18 at 02:00 Insulin Glargine (Lantus) 10 units DAILY@2000 SC Last administered on 05/23/18 21:19; Admin Dose 10 UNITS; Start 05/21/18 at 23:00 Insulin Aspart (Novolog Insulin Pen) NOVOLOG *MODERATE* ALGORITHM WITH MEALS BEDTIME SC Last administered on 05/24/18 11:47; Admin Dose 8 UNIT; Start 05/21/18 at 23:30 Aspirin (Halfprin) 81 mg DAILY PO Last administered on 05/24/18 08:22; Admin Dose 81 MG; Start 05/22/18 at 09:00 Carbamazepine (Tegretol Xr) 200 mg Q12 PO Last administered on 05/24/18 08:23; Admin Dose 200 MG; Start 05/21/18 at 22:00 Fluoxetine HCl (Prozac) 40 mg DAILY PO Last administered on 05/24/18 10:20; Admin Dose 40 MG; Start 05/22/18 at 09:00 Folic Acid (Folic Acid) 1 mg DAILY PO Last administered on 05/24/18 08:22; Admin Dose 1 MG; Start 05/22/18 at 09:00 Gabapentin (Neurontin) 200 mg BID PO Last administered on 05/24/18 08:23; Admin Dose 200 MG; Start 05/21/18 at 22:00 Nifedipine (Procardia Xl) 90 mg DAILY PO Last administered on 05/24/18 08:22; Admin Dose 90 MG; Start 05/22/18 at 09:00 Phenytoin (Dilantin) 300 mg BID PO Last administered on 05/24/18 08:23; Admin Dose 300 MG; Start 05/21/18 at 21:00 Atorvastatin Calcium (Lipitor) 40 mg HS PO Last administered on 05/23/18 21:21; Admin Dose 40 MG; Start 05/21/18 at 22:00 Tamsulosin HCl (Flomax) 0.4 mg HS PO Last administered on 05/23/18at 21:22; Admin Dose 0.4 MG; Start 05/21/18 at 22:00 Miscellaneous Information 1 ea NOTE XX ; Start 05/21/18 at 18:00 Glucose (Glutose) 15 gm Q15M PRN PO DECREASED GLUCOSE; Start 05/21/18 at 18:00 Glucose (Glutose) 22.5 gm Q15M PRN PO DECREASED GLUCOSE; Start 05/21/18 at 18:00 Dextrose (D50w Syringe) 25 ml Q15M PRN IV DECREASED GLUCOSE; Start 05/21/18 at 18:00 Dextrose (D50w Syringe) 50 ml Q15M PRN IV DECREASED GLUCOSE; Start 05/21/18 at 18:00 Glucagon (Glucagen) 1 mg Q15M PRN IM DECREASED GLUCOSE; Start 05/21/18 at 18:00 Glucose (Glutose) 15 gm Q15M PRN BUCCAL DECREASED GLUCOSE; Start 05/21/18 at 18:00 Simethicone (Mylicon) 80 mg TID PRN PO DISTENSION/GAS/BLOATING; Start 05/22/18 at 23:30 Al Hydrox/Mg Hydrox/Simethicone (Mag-Al Plus) 30 ml Q6H PRN PO GASTROINTESTINAL UPSET Last administered on 05/22/18at 23:32; Admin Dose 30 ML; Start 05/22/18 at 23:30 Pantoprazole (Protonix Tab) 40 mg DAILY@06 PO Last administered on 05/24/18at 0 6:14; Admin Dose 40 MG; Start 05/23/18 at 06:00 Vancomycin/Sodium Chloride 250 ml @ 125 mls/hr Q12H IVPB Last administered on 05/24/18at 11:40; Admin Dose 125 MLS/HR; Start 05/24/18 at 11:00 SITA GAY May 24, 2018 12:06
--- NOTE | 2018-05-24 13:30 | PN ---
Date/Time of Note Date/Time of Note DATE: 05/24/18 TIME: 13:28 Assessment/Plan VTE Prophylaxis Risk score (from Nsg)>0 risk: 2 SCD applied (from Ns): No SCD contraindicated: low risk/ambulating Pharmacological prophylaxis: heparin Lines/Catheters IV Catheter Type (from Nrsg): Saline Lock Urinary Cath still in place: No Assessment/Plan Assessment/Plan 53-year-old man with comorbidities including hypertension, diabetes mellitus type 2, dyslipidemia, seizure disorder, depression, alcoholism, and right foot osteomyelitis who presents with worsening R foot osteo. # R foot osteo - No evidence of systemic sepsis - Empiric vanc and cefepime. - ID following previously, will consult Nera. - Dr Laureano following and debriding. - Pain control with norco #HAZEL #Hyperkalemia - HAZEL may be due to heavy NSAID use from pain. - Curiously, potassium still high even after renal function has normalized. - Medical management with kayexalate - Dr. Hopkins following # Diabetes mellitus type 2. -Start the patient on sliding scale insulin along with pre-meal insulin and basal insulin. -Obtain hemoglobin A1c to evaluate the blood glucose control over the past few weeks. # Hypertension. -Resume antihypertensives. -Hold ARB given the patient's renal function. # Alcohol abuse. - He reports weeks of sobriety # Depression. -Resume SSRIs. DVT: heparin GI: None Result Diagram: 05/24/18 0607 05/24/18 0605 Subjective 24 Hr Interval Summary Free Text/Dictation No acute overnight events. Feeling well. Ambulating. Wants to go home. Exam/Review of Systems Exam Vitals Vital Signs Date Temp Pulse Resp B/P (MAP) Pulse Ox O2 O2 Flow FiO2 Time Delivery Rate 05/24/18 80 155/87 10:52 (109) 05/24/18 98.4 18 96 Room Air 08:41 05/21/18 21 16:42 Intake and Output 05/23/18 05/23/18 05/24/18 1515:00 23:00 07:00 IntakeIntake Total 700 ml 820 ml OutputOutput Total 950 ml 1200 ml BalanceBalance -950 ml -500 ml 820 ml Exam Gen: Well developed man in no acute distress, sitting up in bed. Eyes: PERRL, no icterus HEENT: Moist mucous membranes, a dentulous, clear oropharynx Neck: Distended JVD. No lymphadenopathy Card: Regular rate and rhythm, no murmurs Pulm: Clear to auscultation bilaterally Abd: Soft, nontender, nondistended. Ext: R foot bandaged. L foot has black escar on tip of 1st and 2nd digits. Good peripheral pulses. Skin: Otherwise warm, dry, well perfused. Results Results 24hrs Laboratory Tests Test 05/23/18 17:07 05/23/18 21:17 05/23/18 21:56 05/24/18 06:05 Bedside Glucose 146 146 Vancomycin Level 20.2 *H Trough Sodium Level 140 Potassium Level 5.8 H Chloride Level 105 Carbon Dioxide Level 26 Anion Gap 9 Blood Urea Nitrogen 27 H Creatinine 1.29 H Est Glomerular 58 L Filtrat Rate mL/min Glucose Level 78 Calcium Level 10.0 Test 05/24/18 06:07 05/24/18 08:19 05/24/18 11:41 White Blood Count 4.8 Red Blood Count 3.32 L Hemoglobin 9.2 L Hematocrit 29.2 L Mean Corpuscular 88.0 Volume Mean Corpuscular 27.7 L Hemoglobin Mean Corpuscular 31.5 L Hemoglobin Concent Red Cell 12.8 Distribution Width Platelet Count 432 H Mean Platelet Volume 9.8 Immature 0.400 Granulocytes % Neutrophils % 66.4 Lymphocytes % 18.1 Monocytes % 8.5 Eosinophils % 5.6 Basophils % 1.0 Nucleated Red Blood 0.0 Cells % Immature 0.020 Granulocytes # Neutrophils # 3.2 Lymphocytes # 0.9 Monocytes # 0.4 Eosinophils # 0.3 Basophils # 0.1 Nucleated Red Blood 0.0 Cells # Bedside Glucose 70 261 H Medications Medication Current Medications IV Flush (NS 3 ml) 3 ml PER PROTOCOL IV ; Start 05/21/18 at 17:30 Ondansetron HCl (Zofran Inj) 4 mg Q6H PRN IV NAUSEA/VOMITING; Start 05/21/18 at 17:30 Heparin Sodium (Porcine) (Heparin (5000 Units/1ml)) 5,000 unit Q8 SC Last administered on 05/24/18at 13:19; Admin Dose 5,000 UNIT; Start 05/21/18 at 22:00 Acetaminophen/ Hydrocodone Bitart ([place] (10/325)) 1 tab Q4H PRN PO MODERATE PAIN LEVEL 4-6 Last administered on 05/22/18 09:43; Admin Dose 1 TAB; Start 05/21/18 at 18:00 Morphine Sulfate (morphine) 4 mg Q4H PRN IV BREAKTHROUGH PAIN Last administered on 05/24/18 11:41; Admin Dose 4 MG; Start 05/21/18 at 18:00 Vancomycin HCl (Vanco Iv Per Pharmacy) VANCOMYCIN PER PHARMACY PER PROTOCOL XX ; Start 05/21/18 at 18:00 Cefepime HCl 50 ml @ 100 mls/hr Q12 IVPB Last administered on 05/24/18 08:22; Admin Dose 100 MLS/HR; Start 05/22/18 at 01:00 Diagnostic Test (Pha) (Accu-Chek) 1 ea 02 XX Last administered on 05/23/18 01:42; Admin Dose 1 EA; Start 05/22/18 at 02:00 Insulin Glargine (Lantus) 10 units DAILY@2000 SC Last administered on 05/23/18 21:19; Admin Dose 10 UNITS; Start 05/21/18 at 23:00 Insulin Aspart (Novolog Insulin Pen) NOVOLOG *MODERATE* ALGORITHM WITH MEALS BEDTIME SC Last administered on 05/24/18 11:47; Admin Dose 8 UNIT; Start 05/21/18 at 23:30 Aspirin (Halfprin) 81 mg DAILY PO Last administered on 05/24/18 08:22; Admin Dose 81 MG; Start 05/22/18 at 09:00 Carbamazepine (Tegretol Xr) 200 mg Q12 PO Last administered on 05/24/18 08:23; Admin Dose 200 MG; Start 05/21/18 at 22:00 Fluoxetine HCl (Prozac) 40 mg DAILY PO Last administered on 05/24/18 10:20; Admin Dose 40 MG; Start 05/22/18 at 09:00 Folic Acid (Folic Acid) 1 mg DAILY PO Last administered on 05/24/18 08:22; Admin Dose 1 MG; Start 05/22/18 at 09:00 Gabapentin (Neurontin) 200 mg BID PO Last administered on 05/24/18 08:23; Admin Dose 200 MG; Start 05/21/18 at 22:00 Nifedipine (Procardia Xl) 90 mg DAILY PO Last administered on 05/24/18 08:22; Admin Dose 90 MG; Start 05/22/18 at 09:00 Phenytoin (Dilantin) 300 mg BID PO Last administered on 05/24/18at 08:23; Admin Dose 300 MG; Start 05/21/18 at 21:00 Atorvastatin Calcium (Lipitor) 40 mg HS PO Last administered on 05/23/18at 21:21; Admin Dose 40 MG; Start 05/21/18 at 22:00 Tamsulosin HCl (Flomax) 0.4 mg HS PO Last administered on 05/23/18at 21:22; Admin Dose 0.4 MG; Start 05/21/18 at 22:00 Miscellaneous Information 1 ea NOTE XX ; Start 05/21/18 at 18:00 Glucose (Glutose) 15 gm Q15M PRN PO DECREASED GLUCOSE; Start 05/21/18 at 18:00 Glucose (Glutose) 22.5 gm Q15M PRN PO DECREASED GLUCOSE; Start 05/21/18 at 18:00 Dextrose (D50w Syringe) 25 ml Q15M PRN IV DECREASED GLUCOSE; Start 05/21/18 at 18:00 Dextrose (D50w Syringe) 50 ml Q15M PRN IV DECREASED GLUCOSE; Start 05/21/18 at 18:00 Glucagon (Glucagen) 1 mg Q15M PRN IM DECREASED GLUCOSE; Start 05/21/18 at 18:00 Glucose (Glutose) 15 gm Q15M PRN BUCCAL DECREASED GLUCOSE; Start 05/21/18 at 18:00 Simethicone (Mylicon) 80 mg TID PRN PO DISTENSION/GAS/BLOATING; Start 05/22/18 at 23:30 Al Hydrox/Mg Hydrox/Simethicone (Mag-Al Plus) 30 ml Q6H PRN PO GASTROINTESTINAL UPSET Last administered on 05/22/18at 23:32; Admin Dose 30 ML; Start 05/22/18 at 23:30 Pantoprazole (Protonix Tab) 40 mg DAILY@06 PO Last administered on 05/24/18at 06:14; Admin Dose 40 MG; Start 05/23/18 at 06:00 Vancomycin/Sodium Chloride 250 ml @ 125 mls/hr Q12H IVPB Last administered on 05/24/18at 11:40; Admin Dose 125 MLS/HR; Start 05/24/18 at 11:00 HOLLIS BROWN MD May 24, 2018 13:30
[2018-05-24 14:22] VITALS: BP 121/73; PULSE 85; RESP 17
--- NOTE | 2018-05-24 19:12 | CONS ---
DATE OF ADMISSION: 05/21/2018 DATE OF CONSULTATION: 05/24/2018 TYPE OF CONSULTATION: Infectious disease. REASON FOR CONSULTATION: Antibiotic management. HISTORY OF PRESENT ILLNESS: Husam Bedolla is a 53-year-old male who was sent from his MD for evaluati on of right foot cellulitis. The patient has a history of bilateral osteomyelitis of his feet and ri ght forefoot amputation and was referred by [facility] for worsening of right plantar foot ulcer. Despite 1 month of oral antibiotics, they recommended admission for wound debridement and IV antibiotics. He has recently increased swelling and discharge and increased right foot pain. Denie s chest pain or shortness of breath. No weight loss, no vomiting, no diarrhea. PAST MEDICAL HISTORY: He has right forefoot amputation. He has a history of seizure disorders, high blood pressure, alcohol abuse, diabetes mellitus, acute renal failure or insufficiency and left grea t toe osteomyelitis. SOCIAL HISTORY: He is a frequent drinker. He does not smoke or abuse drugs. FAMILY HISTORY: Positive for diabetes. ALLERGIES: MUSHROOMS. MEDICATIONS: Per chart. REVIEW OF SYSTEMS: Noncontributory. LABORATORY DATA: On admission, his white count 7.2, H and H 9.7 and 31, platelet count 137,000. BUN and creatinine 36 and 2.11. Potassium was 6.3. HOSPITAL COURSE: The patient was seen by Dr. Laureano in podiatric consultation. He noted right di abetic ulcer, right foot osteomyelitis, history of right foot TMA, diabetes with peripheral neuropath y, alcohol abuse, and depression. He obtained consent and performed excisional debridement within th e right diabetic foot ulcer, biofilm hyperkeratotic tissue; a skin slough was removed. It was debrid ed. Also, it was not probed to bone. There were signs of osteomyelitis on x-ray. Wound culture was obtained. MRI and noninvasive arterial studies were ordered. Recommend nonweightbearing to the rig ht lower extremity. He noted that the patient had hypertension, diabetes type 2, dyslipidemia, seizu re disorder, depression, alcoholism, and right foot osteomyelitis as noted. PHYSICAL EXAMINATION: GENERAL: The patient is alert, responsive, in no acute distress. VITAL SIGNS: Stable. He is afebrile. SKIN: Without generalized rash. HEENT: Within normal limits. NECK: Supple. LYMPH NODES: None palpable. CHEST: Decreased breath sounds at the bases. HEART: Without murmur or gallop. ABDOMEN: Soft and nontender without organosplenomegaly or masses. EXTREMITIES: Right foot bandaged. Left foot has a black eschar on the tip of the first and second d igits. Pulses are good. RECTAL AND GENITAL: Deferred. NEUROLOGIC: No focal neurological abnormality. LABORATORY DATA: White count today is 44.8, BUN and creatinine 27 and 1.29. IMPRESSION AND PLAN: The patient has numerous comorbidities as noted. No evidence of systemic sepsi s. The patient was placed on vancomycin and cefepime. The wound is growing gram-negative rods, scan t growth. We will continue the patient on current therapy. MRI does not confirm osteomyelitis. Fin dings could represent either early osteomyelitis versus reactive changes secondary to adjacent soft t issue inflammation. We will continue him on his current therapy. I will dictate my findings to the hospitalist and to Dr. Laureano. Dictated By: JOANNE REYNOSO MD, JD/NTS Conf#: [id number] DID#: [id number] CC: HOLLIS BROWN MD;*End*
[2018-05-24 20:00] VITALS: BP 124/65; PULSE 86; RESP 18
[2018-05-24] MEDS: INSULIN GLARGINE [LANTus] (100 UNITS/ML) SYG SC SCH (20:00)
[2018-05-24] MEDS: TAMSULOSIN (SR) 0.4 MG CAP PO SCH (20:01)
[2018-05-24] MEDS: ATORVASTATIN 40 MG TAB PO SCH (20:01)
[2018-05-25 02:00] VITALS: BP 113/66; PULSE 84; RESP 17
[2018-05-25] MEDS: ACCU-CHEK XX SCH (02:09)
[2018-05-25] MEDS: morphine 4 MG/ML VIAL IV PRN ×5 (02:26→22:39)
[2018-05-25] MEDS: INSULIN ASPART [NOVOLOG] 3 ML PEN SC SCH ×2 (05:00→08:38)
[2018-05-25] MEDS: HEPARIN 5,000 UNIT/1 ML VIAL SC SCH ×3 (05:08→22:12)
[2018-05-25] MEDS: PANTOPRAZOLE (EC) 40 MG TAB PO SCH (05:10)
[2018-05-25 07:58] VITALS: BP 183/92; PULSE 82; RESP 18
[2018-05-25] MEDS: FOLIC ACID 1 MG TAB PO SCH (08:26)
[2018-05-25] MEDS: FLUOXETINE 20 MG CAP PO SCH (08:26)
[2018-05-25] MEDS: GABAPENTIN 100 MG CAP PO SCH ×2 (08:26→22:08)
[2018-05-25] MEDS: PHENYTOIN 100 MG CAP PO SCH ×2 (08:27→22:08)
[2018-05-25] MEDS: carBAMAZepine (XR) 200 MG TABSR PO SCH ×2 (08:27→21:00)
[2018-05-25] MEDS: NIFEdipine (XL) 90 MG TAB PO SCH (08:27)
[2018-05-25] MEDS: CEFEPIME 2GM/50 ML (PMX) 50 ML IVPB SCH (08:33)
[2018-05-25] MEDS: ASPIRIN (EC) 81 MG TAB PO SCH (08:39)
[2018-05-25 09:30] VITALS: BP 145/72; PULSE 72
[2018-05-25] MEDS ORDERED: INSULIN ASPART [NOVOLOG] 3 ML PEN SC SCH (11:30)
--- NOTE | 2018-05-25 11:52 | CONS ---
Assessment/Plan Assessment/Plan Assessment/Plan (Daily) 1. acute kidney injury 2/2 ATN from osteomyelitis 2. 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 Right foot osteomyelitis 4. Anemia of CKD/Anemia of chronic disease 5. H/O DM II, 6. H/o HTN 7. H/o HL 8. acute hyperkalemia Resolved Plan: BUN/Cr- 31/1.34- other electrolyte stable s/p IVF before, Currently on IV abx Ertapenem 1 gram I Vdaily , renally dose all abx and monitor electrolytes Procardia XL 90mg po daily for HTN, IV h hydralazine prn SBP more than 150 mm hg previously had a full CKD work up - no need to repeat it will follow up Consultation Date/Type/Reason Admit Date/Time May 21, 2018 at 17:16 Initial Consult Date 05/22/18 Type of Consult NEPHROLOGY Requesting Provider: HOLLIS BROWN MD Date/Time of Note DATE: 05/25/18 TIME: 11:52 Exam/Review of Systems Exam Vitals Vital Signs Date Temp Pulse Resp B/P (MAP) Pulse Ox O2 O2 Flow FiO2 Time Delivery Rate 05/25/18 72 145/72 09:30 (96) 05/25/18 97.7 18 97 Room Air 07:58 05/21/18 21 16:42 Intake and Output 05/24/18 05/24/18 05/25/18 1515:00 23:00 07:00 IntakeIntake Total 320 ml 830 ml 250 ml BalanceBalance 320 ml 830 ml 250 ml Exam Constitutional: alert, oriented Psych: anxiety Head: normocephalic Neck: supple, non-tender Respiratory: clear to auscultation Cardiovascular: regular rate and rhythm Gastrointestinal: soft, non-tender Musculoskeletal: other (right foot with amputated toes, left foot with dressing in place 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, nl mental status, nl speech Results Result Diagram: 05/25/18 0548 05/25/18 0548 Results 24hrs Laboratory Tests Test 05/24/18 17:30 05/24/18 19:57 05/24/18 21:15 05/25/18 02:12 Bedside Glucose 75 180 212 219 Test 05/25/18 05:07 05/25/18 05:48 05/25/18 08:33 Bedside Glucose 97 86 White Blood Count 4.6 L Red Blood Count 2.90 L Hemoglobin 8.1 L Hematocrit 25.6 L Mean Corpuscular 88.3 Volume Mean Corpuscular 27.9 L Hemoglobin Mean Corpuscular 31.6 L Hemoglobin Concent Red Cell 12.8 Distribution Width Platelet Count 395 Mean Platelet Volume 9.9 Immature 0.400 Granulocytes % Neutrophils % 55.8 Lymphocytes % 24.4 Monocytes % 10.9 Eosinophils % 7.6 H Basophils % 0.9 Nucleated Red Blood 0.0 Cells % Immature 0.020 Granulocytes # Neutrophils # 2.6 Lymphocytes # 1.1 Monocytes # 0.5 Eosinophils # 0.4 Basophils # 0.0 Nucleated Red Blood 0.0 Cells # Sodium Level 139 Potassium Level 4.8 Chloride Level 105 Carbon Dioxide Level 25 Anion Gap 9 Blood Urea Nitrogen 31 H Creatinine 1.34 H Est Glomerular 56 L Filtrat Rate mL/min Glucose Level 75 Calcium Level 9.3 Phosphorus Level 4.9 Magnesium Level 1.7 Medications Medication Current Medications IV Flush (NS 3 ml) 3 ml PER PROTOCOL IV ; Start 05/21/18 at 17:30 Ondansetron HCl (Zofran Inj) 4 mg Q6H PRN IV NAUSEA/VOMITING; Start 05/21/18 at 17:30 Heparin Sodium (Porcine) (Heparin (5000 Units/1ml)) 5,000 unit Q8 SC Last administered on 05/24/18at 21:18; Admin Dose 5,000 UNIT; Start 05/21/18 at 22:00 Acetaminophen/ Hydrocodone Bitart ([place] (10/325)) 1 tab Q4H PRN PO MODERATE PA IN LEVEL 4-6 Last administered on 05/22/18at 09:43; Admin Dose 1 TAB; Start 05/21/18 at 18:00 Morphine Sulfate (morphine) 4 mg Q4H PRN IV BREAKTHROUGH PAIN Last administered on 05/25/18at 08:22; Admin Dose 4 MG; Start 05/21/18 at 18:00 Vancomycin HCl (Vanco Iv Per Pharmacy) VANCOMYCIN PER PHARMACY PER PROTOCOL XX ; Start 05/21/18 at 18:00 Cefepime HCl 50 ml @ 100 mls/hr Q12 IVPB Last administered on 05/25/18at 08:33; Admin Dose 100 MLS/HR; Start 05/22/18 at 01:00 Diagnostic Test (Pha) (Accu-Chek) 1 ea 02 XX Last administered on 05/25/18 02:09; Admin Dose 1 EA; Start 05/22/18 at 02:00 Insulin Glargine (Lantus) 10 units DAILY@2000 SC Last administered on 05/24/18 20:00; Admin Dose 10 UNITS; Start 05/21/18 at 23:00 Aspirin (Halfprin) 81 mg DAILY PO Last administered on 05/24/18 08:22; Admin Dose 81 MG; Start 05/22/18 at 09:00 Carbamazepine (Tegretol Xr) 200 mg Q12 PO Last administered on 05/25/18 08:27; Admin Dose 200 MG; Start 05/21/18 at 22:00 Fluoxetine HCl (Prozac) 40 mg DAILY PO Last administered on 05/25/18 08:26; Admin Dose 40 MG; Start 05/22/18 at 09:00 Folic Acid (Folic Acid) 1 mg DAILY PO Last administered on 05/25/18 08:26; Admin Dose 1 MG; Start 05/22/18 at 09:00 Gabapentin (Neurontin) 200 mg BID PO Last administered on 05/25/18 08:26; Admin Dose 200 MG; Start 05/21/18 at 22:00 Nifedipine (Procardia Xl) 90 mg DAILY PO Last administered on 05/25/18 08:27; Admin Dose 90 MG; Start 05/22/18 at 09:00 Phenytoin (Dilantin) 300 mg BID PO Last administered on 05/25/18 08:27; Admin Dose 300 MG; Start 05/21/18 at 21:00 Atorvastatin Calcium (Lipitor) 40 mg HS PO Last administered on 05/24/18 20:01; Admin Dose 40 MG; Start 05/21/18 at 22:00 Tamsulosin HCl (Flomax) 0.4 mg HS PO Last administered on 05/24/18 20:01; Admin Dose 0.4 MG; Start 05/21/18 at 22:00 Miscellaneous Information 1 ea NOTE XX ; Start 05/21/18 at 18:00 Glucose (Glutose) 15 gm Q15M PRN PO DECREASED GLUCOSE; Start 05/21/18 at 18:00 Glucose (Glutose) 22.5 gm Q15M PRN PO DECREASED GLUCOSE; Start 05/21/18 at 18:00 Dextrose (D50w Syringe) 25 ml Q15M PRN IV DECREASED GLUCOSE; Start 05/21/18 at 18:00 Dextrose (D50w Syringe) 50 ml Q15M PRN IV DECREASED GLUCOSE; Start 05/21/18 at 18:00 Glucagon (Glucagen) 1 mg Q15M PRN IM DECREASED GLUCOSE; Start 05/21/18 at 18:00 Glucose (Glutose) 15 gm Q15M PRN BUCCAL DECREASED GLUCOSE; Start 05/21/18 at 18:00 Simethicone (Mylicon) 80 mg TID PRN PO DISTENSION/GAS/BLOATING; Start 05/22/18 at 23:30 Al Hydrox/Mg Hydrox/Simethicone (Mag-Al Plus) 30 ml Q6H PRN PO GASTROINTESTINAL UPSET Last administered on 05/22/18at 23:32; Admin Dose 30 ML; Start 05/22/18 at 23:30 Pantoprazole (Protonix Tab) 40 mg DAILY@06 PO Last administered on 05/25/18at 05:10; Admin Dose 40 MG; Start 05/23/18 at 06:00 Vancomycin/Sodium Chloride 250 ml @ 125 mls/hr Q12H IVPB Last administered on 05/24/18at 23:15; Admin Dose 125 MLS/HR; Start 05/24/18 at 11:00 Insulin Aspart (Novolog Insulin Pen) (Adult SC Insulin - Moder... WITH MEALS BEDTIME SC ; Start 05/25/18 at 12:00 BHARATH NARANJO MD May 25, 2018 11:52
[2018-05-25] MEDS: Insulin NOVOLOG SS MODERATE Algorithm (SS with meals and bedtime) SC SCH ×3 (12:00→21:00)
[2018-05-25] MEDS: VANCOMYCIN 750 MG (PMX) 250 ML IVPB SCH (13:22)
[2018-05-25 14:15] VITALS: BP 109/59; PULSE 84; RESP 19
--- NOTE | 2018-05-25 15:20 | CONS ---
Assessment/Plan Assessment/Plan Hospital Course (Demo Recall) No acute changes patient is awake ambulating in the hallway no fevers overnight WBC 4.6 no shift no bands Microbiology: Wound culture growing diphtheroids and Citrobacter free 1 day, multidrug-resistant X-ray of the foot revealed bone marrow edema with metatarsal remnants but no nurys bone destructive change to confirm osteomyelitis. Findings could represent either early osteomyelitis versus reactive change secondary to adjacent tissue inflammation. No abscess is seen Antimicrobials: Vancomycin, cefepime PHYSICAL EXAMINATION: GENERAL: This is a well-developed, middle-aged man who is in no distress. HEENT: Head atraumatic, normocephalic. NECK: Supple. CHEST: Rise symmetrical. Breath sounds diminished bases HEART: S1, S2. ABDOMEN: Soft, bowel sounds present. EXTREMITIES: Foot dressing intact ASSESSMENT: 1. Right diabetic foot ulceration questionable osteomyelitis, status post multiple debridement 2. Diabetes 2. Diabetic neuropathy 3. Hypertension 4. EtOH abuse PLAN: The patient remains stable, change antibiotics to Invanz, will discuss with podiatry if patient needs to be on long-term IV antibiotics Consultation Date/Type/Reason Admit Date/Time May 21, 2018 at 17:16 Initial Consult Date 05/22/18 Type of Consult id Requesting Provider: HOLLIS BROWN MD Date/Time of Note DATE: 05/25/18 TIME: 15:17 Exam/Review of Systems Exam Vitals Vital Signs Date Temp Pulse Resp B/P (MAP) Pulse Ox O2 O2 Flow FiO2 Time Delivery Rate 05/25/18 72 145/72 09:30 (96) 05/25/18 97.7 18 97 Room Air 07:58 05/21/18 21 16:42 Intake and Output 05/24/18 05/24/18 05/25/18 1414:59 22:59 06:59 IntakeIntake Total 320 ml 830 ml 250 ml BalanceBalance 320 ml 830 ml 250 ml Results Result Diagram: 05/25/18 0548 05/25/18 0548 Results 24hrs Laboratory Tests Test 05/24/18 17:30 05/24/18 19:57 05/24/18 21:15 05/25/18 02:12 Bedside Glucose 75 180 212 219 Test 05/25/18 05:07 05/25/18 05:48 05/25/18 08:33 05/25/18 12:37 Bedside Glucose 97 86 126 White Blood Count 4.6 L Red Blood Count 2.90 L Hemoglobin 8.1 L Hematocrit 25.6 L Mean Corpuscular 88.3 Volume Mean Corpuscular 27.9 L Hemoglobin Mean Corpuscular 31.6 L Hemoglobin Concent Red Cell 12.8 Distribution Width Platelet Count 395 Mean Platelet Volume 9.9 Immature 0.400 Granulocytes % Neutrophils % 55.8 Lymphocytes % 24.4 Monocytes % 10.9 Eosinophils % 7.6 H Basophils % 0.9 Nucleated Red Blood 0.0 Cells % Immature 0.020 Granulocytes # Neutrophils # 2.6 Lymphocytes # 1.1 Monocytes # 0.5 Eosinophils # 0.4 Basophils # 0.0 Nucleated Red Blood 0.0 Cells # Sodium Level 139 Potassium Level 4.8 Chloride Level 105 Carbon Dioxide Level 25 Anion Gap 9 Blood Urea Nitrogen 31 H Creatinine 1.34 H Est Glomerular 56 L Filtrat Rate mL/min Glucose Level 75 Calcium Level 9.3 Phosphorus Level 4.9 Magnesium Level 1.7 Medications Medication Current Medications IV Flush (NS 3 ml) 3 ml PER PROTOCOL IV ; Start 05/21/18 at 17:30 Ondansetron HCl (Zofran Inj) 4 mg Q6H PRN IV NAUSEA/VOMITING; Start 05/21/18 at 17:30 Heparin Sodium (Porcine) (Heparin (5000 Units/1ml)) 5,000 unit Q8 SC Last administered on 05/25/18at 13:28; Admin Dose 5,000 UNIT; Start 05/21/18 at 22:00 Acetaminophen/ Hydrocodone Bitart ([place] (10/325)) 1 tab Q4H PRN PO MODERATE PAIN LEVEL 4-6 Last administered on 05/22/18at 09:43; Admin Dose 1 TAB; Start 05/21/18 at 18:00 Morphine Sulfate (morphine) 4 mg Q4H PRN IV BREAKTHROUGH PAIN Last administered on 05/25/18at 13:22; Admin Dose 4 MG; Start 05/21/18 at 18:00 Vancomycin HCl (Vanco Iv Per Pharmacy) VANCOMYCIN PER PHARMACY PER PROTOCOL XX ; Start 05/21/18 at 18:00 Cefepime HCl 50 ml @ 100 mls/hr Q12 IVPB Last administered on 05/25/18at 08:33; Admin Dose 100 MLS/HR; Start 05/22/18 at 01:00 Diagnostic Test (Pha) (Accu-Chek) 1 ea 02 XX Last administered on 05/25/18 02:09; Admin Dose 1 EA; Start 05/22/18 at 02:00 Insulin Glargine (Lantus) 10 units DAILY@2000 SC Last administered on 05/24/18 20:00; Admin Dose 10 UNITS; Start 05/21/18 at 23:00 Aspirin (Halfprin) 81 mg DAILY PO Last administered on 05/24/18 08:22; Admin Dose 81 MG; Start 05/22/18 at 09:00 Carbamazepine (Tegretol Xr) 200 mg Q12 PO Last administered on 05/25/18 08:27; Admin Dose 200 MG; Start 05/21/18 at 22:00 Fluoxetine HCl (Prozac) 40 mg DAILY PO Last administered on 05/25/18 08:26; Admin Dose 40 MG; Start 05/22/18 at 09:00 Folic Acid (Folic Acid) 1 mg DAILY PO Last administered on 05/25/18 08:26; Admin Dose 1 MG; Start 05/22/18 at 09:00 Gabapentin (Neurontin) 200 mg BID PO Last administered on 05/25/18 08:26; Admin Dose 200 MG; Start 05/21/18 at 22:00 Nifedipine (Procardia Xl) 90 mg DAILY PO Last administered on 05/25/18 08:27; Admin Dose 90 MG; Start 05/22/18 at 09:00 Phenytoin (Dilantin) 300 mg BID PO Last administered on 05/25/18 08:27; Admin Dose 300 MG; Start 05/21/18 at 21:00 Atorvastatin Calcium (Lipitor) 40 mg HS PO Last administered on 05/24/18 20:01; Admin Dose 40 MG; Start 05/21/18 at 22:00 Tamsulosin HCl (Flomax) 0.4 mg HS PO Last administered on 05/24/18 20:01; Admin Dose 0.4 MG; Start 05/21/18 at 22:00 Miscellaneous Information 1 ea NOTE XX ; Start 05/21/18 at 18:00 Glucose (Glutose) 15 gm Q15M PRN PO DECREASED GLUCOSE; Start 05/21/18 at 18:00 Glucose (Glutose) 22.5 gm Q15M PRN PO DECREASED GLUCOSE; Start 05/21/18 at 18:00 Dextrose (D50w Syringe) 25 ml Q15M PRN IV DECREASED GLUCOSE; Start 05/21/18 at 18:00 Dextrose (D50w Syringe) 50 ml Q15M PRN IV DECREASED GLUCOSE; Start 05/21/18 at 18:00 Glucagon (Glucagen) 1 mg Q15M PRN IM DECREASED GLUCOSE; Start 05/21/18 at 18:00 Glucose (Glutose) 15 gm Q15M PRN BUCCAL DECREASED GLUCOSE; Start 05/21/18 at 18:00 Simethicone (Mylicon) 80 mg TID PRN PO DISTENSION/GAS/BLOATING; Start 05/22/18 at 23:30 Al Hydrox/Mg Hydrox/Simethicone (Mag-Al Plus) 30 ml Q6H PRN PO GASTROINTESTINAL UPSET Last administered on 05/22/18at 23:32; Admin Dose 30 ML; Start 05/22/18 at 23:30 Pantoprazole (Protonix Tab) 40 mg DAILY@06 PO Last administered on 05/25/18at 05:10; Admin Dose 40 MG; Start 05/23/18 at 06:00 Insulin Aspart (Novolog Insulin Pen) (Adult SC Insulin - Moder... WITH MEALS BEDTIME SC ; Start 05/25/18 at 12:00 Vancomycin/Sodium Chloride 250 ml @ 125 mls/hr Q12H IVPB ; Start 05/26/18 at 01:00 Miscellaneous Information (*Rx Drug Level Order Reminder*) 1 ONCE ONCE XX ; Start 05/26/18 at 00:00; Stop 05/26/18 at 00:01 GABBY HERRERA NP May 25, 2018 15:19
--- NOTE | 2018-05-25 16:03 | PN ---
Date/Time of Note Date/Time of Note DATE: 05/25/18 TIME: 15:57 Assessment/Plan VTE Prophylaxis Risk score (from Nsg)>0 risk: 2 SCD applied (from Ns): No SCD contraindicated: other Pharmacological prophylaxis: heparin Lines/Catheters IV Catheter Type (from Nrs): Sal[place] Lock Urinary Cath still in place: No Assessment/Plan Hospital Course S: Patient seen by ID team earlier today. Anxious to have his surgical debridement performed as soon as possible. Apparently this was canceled earlier today and rescheduled for the next 48 hours. O: VS -see below Physical exam: Gen: Well developed man in no acute distress, sitting up in bed. Eyes: PERRL, no icterus HEENT: Moist mucous membranes, a dentulous, clear oropharynx Neck: Distended JVD. No lymphadenopathy Card: Regular rate and rhythm, no murmurs Pulm: Clear to auscultation bilaterally Abd: Soft, nontender, nondistended. Ext: R foot bandaged. L foot has black escar on tip of 1st and 2nd digits. Good peripheral pulses. Skin: Otherwise warm, dry, well perfused. Assessment/Plan: 53-year-old man with comorbidities including hypertension, diabetes mellitus type 2, dyslipidemia, seizure disorder, depression, alcoholism, and right foot osteomyelitis who presents with worsening R foot osteo. # R foot osteo- No evidence of systemic sepsis. Podiatry and ID teams on the case per -For now continue empiric vanc and cefepime. - Dr Laureano following and likely planning for next debridement in 48 hours. - Pain control with norco, follow-up ID recommendations as well, particularly regarding the length of treatment needed with IV antibiotics #HAZEL- -slowly improving -Continue monitor BUN/creatinine levels daily as well as urine output, follow-up renal recommendations #Hyperkalemia -resolved now, may be due to heavy NSAID use from pain. -Monitor, continue medical management with kayexalate as needed - Dr. Hopkins following, follow-up his renal recommendations # Diabetes mellitus type 2-A1c equals 7.5, sugars presently stable -Continue sliding scale insulin along with pre-meal insulin and basal insulin. # Hypertension-stable -Continue current antihypertensives. -Holding ARB given the patient's renal function. # Alcohol abuse- He reports weeks of sobriety -Monitor for withdrawal # Depression. -Continue SSRIs. DVT: heparin GI: None Result Diagram: 05/25/18 0548 05/25/18 0548 Results 24hrs Laboratory Tests Test 05/24/18 17:30 05/24/18 19:57 05/24/18 21:15 05/25/18 02:12 Bedside Glucose 75 180 212 219 Test 05/25/18 05:07 05/25/18 05:48 05/25/18 08:33 05/25/18 12:37 Bedside Glucose 97 86 126 White Blood Count 4.6 L Red Blood Count 2.90 L Hemoglobin 8.1 L Hematocrit 25.6 L Mean Corpuscular 88.3 Volume Mean Corpuscular 27.9 L Hemoglobin Mean Corpuscular 31.6 L Hemoglobin Concent Red Cell 12.8 Distribution Width Platelet Count 395 Mean Platelet Volume 9.9 Immature 0.400 Granulocytes % Neutrophils % 55.8 Lymphocytes % 24.4 Monocytes % 10.9 Eosinophils % 7.6 H Basophils % 0.9 Nucleated Red Blood 0.0 Cells % Immature 0.020 Granulocytes # Neutrophils # 2.6 Lymphocytes # 1.1 Monocytes # 0.5 Eosinophils # 0.4 Basophils # 0.0 Nucleated Red Blood 0.0 Cells # Sodium Level 139 Potassium Level 4.8 Chloride Level 105 Carbon Dioxide Level 25 Anion Gap 9 Blood Urea Nitrogen 31 H Creatinine 1.34 H Est Glomerular 56 L Filtrat Rate mL/min Glucose Level 75 Calcium Level 9.3 Phosphorus Level 4.9 Magnesium Level 1.7 Exam/Review of Systems Exam Vitals Vital Signs Date Temp Pulse Resp B/P (MAP) Pulse Ox O2 O2 Flow FiO2 Time Delivery Rate 05/25/18 97.9 84 19 109/59 94 Room Air 14:15 (76) 05/21/18 21 16:42 Intake and Output 05/24/18 05/24/18 05/25/18 1515:00 23:00 07:00 IntakeIntake Total 320 ml 830 ml 250 ml BalanceBalance 320 ml 830 ml 250 ml Results Results 24hrs Laboratory Tests Test 05/24/18 17:30 05/24/18 19:57 05/24/18 21:15 05/25/18 02:12 Bedside Glucose 75 180 212 219 Test 05/25/18 05:07 05/25/18 05:48 05/25/18 08:33 05/25/18 12:37 Bedside Glucose 97 86 126 White Blood Count 4.6 L Red Blood Count 2.90 L Hemoglobin 8.1 L Hematocrit 25.6 L Mean Corpuscular 88.3 Volume Mean Corpuscular 27.9 L Hemoglobin Mean Corpuscular 31.6 L Hemoglobin Concent Red Cell 12.8 Distribution Width Platelet Count 395 Mean Platelet Volume 9.9 Immature 0.400 Granulocytes % Neutrophils % 55.8 Lymphocytes % 24.4 Monocytes % 10.9 Eosinophils % 7.6 H Basophils % 0.9 Nucleated Red Blood 0.0 Cells % Immature 0.020 Granulocytes # Neutrophils # 2.6 Lymphocytes # 1.1 Monocytes # 0.5 Eosinophils # 0.4 Basophils # 0.0 Nucleated Red Blood 0.0 Cells # Sodium Level 139 Potassium Level 4.8 Chloride Level 105 Carbon Dioxide Level 25 Anion Gap 9 Blood Urea Nitrogen 31 H Creatinine 1.34 H Est Glomerular 56 L Filtrat Rate mL/min Glucose Level 75 Calcium Level 9.3 Phosphorus Level 4.9 Magnesium Level 1.7 Medications Medication Current Medications IV Flush (NS 3 ml) 3 ml PER PROTOCOL IV ; Start 05/21/18 at 17:30 Ondansetron HCl (Zofran Inj) 4 mg Q6H PRN IV NAUSEA/VOMITING; Start 05/21/18 at 17:30 Heparin Sodium (Porcine) (Heparin (5000 Units/1ml)) 5,000 unit Q8 SC Last administered on 05/25/18 13:28; Admin Dose 5,000 UNIT; Start 05/21/18 at 22:00 Acetaminophen/ Hydrocodone Bitart ([place] (10/325)) 1 tab Q4H PRN PO MODERATE PAIN LEVEL 4-6 Last administered on 05/22/18 09:43; Admin Dose 1 TAB; Start 05/21/18 at 18:00 Morphine Sulfate (morphine) 4 mg Q4H PRN IV BREAKTHROUGH PAIN Last administered on 05/25/18 13:22; Admin Dose 4 MG; Start 05/21/18 at 18:00 Diagnostic Test (Pha) (Accu-Chek) 1 ea 02 XX Last administered on 05/25/18 02:09; Admin Dose 1 EA; Start 05/22/18 at 02:00 Insulin Glargine (Lantus) 10 units DAILY@2000 SC Last administered on 3/24/19at 20:00; Admin Dose 10 UNITS; Start 05/21/18 at 23:00 Aspirin (Halfprin) 81 mg DAILY PO Last administered on 05/24/18 08:22; Admin Dose 81 MG; Start 05/22/18 at 09:00 Carbamazepine (Tegretol Xr) 200 mg Q12 PO Last administered on 05/25/18 08:27; Admin Dose 200 MG; Start 05/21/18 at 22:00 Fluoxetine HCl (Prozac) 40 mg DAILY PO Last administered on 05/25/18 08:26; Admin Dose 40 MG; Start 05/22/18 at 09:00 Folic Acid (Folic Acid) 1 mg DAILY PO Last administered on 05/25/18 08:26; Admin Dose 1 MG; Start 05/22/18 at 09:00 Gabapentin (Neurontin) 200 mg BID PO Last administered on 05/25/18 08:26; Admin Dose 200 MG; Start 05/21/18 at 22:00 Nifedipine (Procardia Xl) 90 mg DAILY PO Last administered on 05/25/18 08:27; Admin Dose 90 MG; Start 05/22/18 at 09:00 Phenytoin (Dilantin) 300 mg BID PO Last administered on 05/25/18 08:27; Admin Dose 300 MG; Start 05/21/18 at 21:00 Atorvastatin Calcium (Lipitor) 40 mg HS PO Last administered on 05/24/18 20:01; Admin Dose 40 MG; Start 05/21/18 at 22:00 Tamsulosin HCl (Flomax) 0.4 mg HS PO Last administered on 05/24/18 20:01; Admin Dose 0.4 MG; Start 05/21/18 at 22:00 Miscellaneous Information 1 ea NOTE XX ; Start 05/21/18 at 18:00 Glucose (Glutose) 15 gm Q15M PRN PO DECREASED GLUCOSE; Start 05/21/18 at 18:00 Glucose (Glutose) 22.5 gm Q15M PRN PO DECREASED GLUCOSE; Start 05/21/18 at 18:00 Dextrose (D50w Syringe) 25 ml Q15M PRN IV DECREASED GLUCOSE; Start 05/21/18 at 18:00 Dextrose (D50w Syringe) 50 ml Q15M PRN IV DECREASED GLUCOSE; Start 05/21/18 at 18:00 Glucagon (Glucagen) 1 mg Q15M PRN IM DECREASED GLUCOSE; Start 05/21/18 at 18:00 Glucose (Glutose) 15 gm Q15M PRN BUCCAL DECREASED GLUCOSE; Start 05/21/18 at 18:00 Simethicone (Mylicon) 80 mg TID PRN PO DISTENSION/GAS/BLOATING; Start 05/22/18 at 23:30 Al Hydrox/Mg Hydrox/Simethicone (Mag-Al Plus) 30 ml Q6H PRN PO GASTROINTESTINAL UPSET Last administered on 05/22/18at 23:32; Admin Dose 30 ML; Start 05/22/18 at 23:30 Pantoprazole (Protonix Tab) 40 mg DAILY@06 PO Last administered on 05/25/18at 05:10; Admin Dose 40 MG; Start 05/23/18 at 06:00 Insulin Aspart (Novolog Insulin Pen) (Adult SC Insulin - Moder... WITH MEALS BEDTIME SC ; Start 05/25/18 at 12:00 Ertapenem 1 gm/ Sodium Chloride 100 ml @ 200 mls/hr Q24H IVPB ; Start 05/25/18 at 16:30 BEVERLY DUBON May 25, 2018 16:03
[2018-05-25] MEDS: ERTAPENEM SODIUM 1 GM in SOD CHLORIDE 0.9% 100 ML IVPB SCH (17:58)
[2018-05-25 20:00] VITALS: BP 146/85; PULSE 77; RESP 19
[2018-05-25] MEDS: TAMSULOSIN (SR) 0.4 MG CAP PO SCH (22:08)
[2018-05-25] MEDS: ATORVASTATIN 40 MG TAB PO SCH (22:08)
[2018-05-25] MEDS: INSULIN GLARGINE [LANTus] (100 UNITS/ML) SYG SC SCH (22:11)
[2018-05-25] MEDS: SODIUM HYPOCHLORITE (1/40) 1 APPLIC BTL IRR SCH (22:17)
[2018-05-26] MEDS ORDERED: VANCOMYCIN 750 MG (PMX) 250 ML IVPB SCH (01:00)
[2018-05-26 02:00] VITALS: BP 133/78; PULSE 79; RESP 18
[2018-05-26] MEDS: ACCU-CHEK XX SCH (02:00)
[2018-05-26] MEDS: morphine 4 MG/ML VIAL IV PRN ×5 (02:49→22:05)
[2018-05-26] MEDS: PANTOPRAZOLE (EC) 40 MG TAB PO SCH (06:53)
[2018-05-26] MEDS: HEPARIN 5,000 UNIT/1 ML VIAL SC SCH ×3 (06:58→22:18)
[2018-05-26 08:00] VITALS: BP 153/80; PULSE 70; RESP 18
[2018-05-26] MEDS: Insulin NOVOLOG SS MODERATE Algorithm (SS with meals and bedtime) SC SCH ×4 (08:00→21:00)
[2018-05-26] MEDS: SODIUM HYPOCHLORITE (1/40) 1 APPLIC BTL IRR SCH (09:32)
[2018-05-26] MEDS: GABAPENTIN 100 MG CAP PO SCH ×2 (09:32→22:09)
[2018-05-26] MEDS: ASPIRIN (EC) 81 MG TAB PO SCH (09:32)
[2018-05-26] MEDS: PHENYTOIN 100 MG CAP PO SCH ×2 (09:32→22:08)
[2018-05-26] MEDS: FOLIC ACID 1 MG TAB PO SCH (09:32)
[2018-05-26] MEDS: NIFEdipine (XL) 90 MG TAB PO SCH (09:33)
[2018-05-26] MEDS: carBAMAZepine (XR) 100 MG TABSR PO SCH ×2 (09:33→22:08)
[2018-05-26] MEDS: FLUOXETINE 20 MG CAP PO SCH (09:33)
--- NOTE | 2018-05-26 11:46 | PREAC ---
Date/Time of Note Date/Time of Note DATE: 05/26/18 TIME: 11:44 Anesthesia Eval and Record Evaluation Time Pre-Procedure Interview DATE: 05/26/18 TIME: 11:44 Age 53 Sex male NPO: 8 hrs Preoperative diagnosis right foot cellulitis Planned procedure RIGHT FOOT DEBRIDEMENT Past Medical History Past Medical History: Includes Cardio: HTN, Dyslipidemia Endo: Diabetes Neuro: Seizure disorder Renal: HAZEL Hepatic: Alcohol abuse Heme: Anemia Psych: Depression Surgery & Anesthesia Issues No known issue Meds Anticoagulation: No Beta Aneudy within 24 hr: No Reason Beta Aneudy not given: Pt. not on B-Aneudy Active Scripts Nifedipine (Procardia Xl) 90 Mg Tab.er.24, 90 MG PO DAILY for 10 Days, #15 TAB 1 Refill Prov:LISA PABON MD 12/26/17 Aspirin* (Aspirin* EC) 81 Mg Tablet.dr, 81 MG PO DAILY for 14 Days otc Prov:LISA PABON MD 12/24/17 Reported Medications Atorvastatin* (Atorvastatin*) Unknown Strength Tablet, 1 TAB PO QHS, #30 TAB 05/21/18 Hydrocodone/Acetaminophen ([place] 10-325 Tablet) 1 Each Tablet, 1 EACH PO BID, TAB 05/21/18 Hydrochlorothiazide* (Hydrochlorothiazide*) 12.5 Mg Tablet, 12.5 MG PO DAILY, #30 TAB 05/21/18 Tamsulosin Hcl* (Tamsulosin Hcl*) 0.4 Mg Cap.er.24h, 0.4 MG PO HS, CAP 05/21/18 Lactobacillus Acidophilus (Probiotic Acidophilus) 1 Each Tablet, 1 EACH PO DAILY, TAB 05/21/18 Sitagliptin* (Januvia*) 100 Mg Tablet, 100 MG PO DAILY, #30 TAB 05/21/18 Lisinopril* (Lisinopril*) 40 Mg Tablet, 40 MG PO DAILY, #30 TAB 05/21/18 Phenytoin* Sodium Extended (Dilantin*) 100 Mg Capsule, 100 MG PO TID, CAP 05/21/18 Amlodipine Besylate* (Amlodipine Besylate*) 10 Mg Tablet, 10 MG PO DAILY, #30 TAB 05/21/18 Thiamine* (Vitamin B-1*) 100 Mg Tablet, 100 MG PO DAILY, TAB 05/21/18 Ferrous Sulfate* (Ferrous Sulfate*) 325 Mg Tabec, 325 MG PO DAILY, TAB 05/21/18 Hydralazine Hcl* (Hydralazine Hcl*) 10 Mg Tablet, 10 MG PO TID, #90 TAB 05/21/18 Glipizide* (Glipizide*) 10 Mg Tablet, 10 MG PO AC BREAKFAST, TAB 05/21/18 Insulin Glargine,Hum.rec.anlog (Basaglar Kwikpen U-100) 100 Unit/1 Ml Insuln.pen, 9 UNIT SC QHS, EA 03/02/18 Gabapentin* (Gabapentin*) 100 Mg Capsule, 200 MG PO BID, #180 CAP 03/02/18 Carbamazepine* (Tegretol Xr*) 200 Mg Tab.sr.12h, 200 MG PO Q12, TAB.SA 08/29/17 Folic Acid* (Folic Acid*) 1 Mg Tablet, 1 MG PO DAILY, TAB 08/29/17 Fluoxetine Hcl* (Prozac*) 40 Mg Capsule, 40 MG PO DAILY, CAP 08/29/17 Discontinued Reported Medications Phenytoin* Sodium Extended (Dilantin*) 100 Mg Capsule, 300 MG PO BID, CAP 08/29/17 Multivitamins* (Theragran*) 1 Tab Tab, 1 TAB PO DAILY, TAB 08/29/17 Discontinued Scripts Naproxen* (Naprosyn*) 500 Mg Tablet, 500 MG PO BID PRN for PAIN AND/OR INFLAMMATION, #30 TAB Prov:RYAN RODRÍGUEZ MD 03/02/18 Sulfamethoxazole/Trimethoprim* (Bactrim Ds* Tablet) 1 Each Tablet, 1 TAB PO BID, #20 TAB Prov:RYAN RODRÍGUEZ MD 03/02/18 Cephalexin* (Keflex*) 500 Mg Capsule, 500 MG PO QID for 10 Days, CAP Prov:RYAN RODRÍGUEZ MD 03/02/18 Insulin Aspart* (Novolog Insulin Pen*) 100 Unit/Ml Soln, 5 UNIT SC WITH MEALS for 15 Days, #45 1 Refill Prov:LISA PABON MD 12/24/17 Current Medications IV Flush (NS 3 ml) 3 ml PER PROTOCOL IV ; Start 05/21/18 at 17:30 Ondansetron HCl (Zofran Inj) 4 mg Q6H PRN IV NAUSEA/VOMITING; Start 05/21/18 at 17:30 Heparin Sodium (Porcine) (Heparin (5000 Units/1ml)) 5,000 unit Q8 SC Last administered on 05/26/18 06:58; Admin Dose 5,000 UNIT; Start 05/21/18 at 22:00 Acetaminophen/ Hydrocodone Bitart ([place] (10/325)) 1 tab Q4H PRN PO MODERATE PAIN LEVEL 4-6 Last administered on 05/22/18 09:43; Admin Dose 1 TAB; Start 05/21/18 at 18:00 Morphine Sulfate (morphine) 4 mg Q4H PRN IV BREAKTHROUGH PAIN Last administered on 05/26/18 11:42; Admin Dose 4 MG; Start 05/21/18 at 18:00 Diagnostic Test (Pha) (Accu-Chek) 1 ea 02 XX Last administered on 05/25/18 02:09; Admin Dose 1 EA; Start 05/22/18 at 02:00 Insulin Glargine (Lantus) 10 units DAILY@2000 SC Last administered on 05/25/18 22:11; Admin Dose 10 UNITS; Start 05/21/18 at 23:00 Aspirin (Halfprin) 81 mg DAILY PO Last administered on 05/26/18 09:32; Admin Dose 81 MG; Start 05/22/18 at 09:00 Fluoxetine HCl (Prozac) 40 mg DAILY PO Last administered on 05/26/18 09:33; Admin Dose 40 MG; Start 05/22/18 at 09:00 Folic Acid (Folic Acid) 1 mg DAILY PO Last administered on 05/26/18 09:32; Admin Dose 1 MG; Start 05/22/18 at 09:00 Gabapentin (Neurontin) 200 mg BID PO Last administered on 05/26/18 09:32; Admin Dose 200 MG; Start 05/21/18 at 22:00 Nifedipine (Procardia Xl) 90 mg DAILY PO Last administered on 05/26/18 09:33; Admin Dose 90 MG; Start 05/22/18 at 09:00 Phenytoin (Dilantin) 300 mg BID PO Last administered on 05/26/18 09:32; Admin Dose 300 MG; Start 05/21/18 at 21:00 Atorvastatin Calcium (Lipitor) 40 mg HS PO Last administered on 05/25/18 22:08; Admin Dose 40 MG; Start 05/21/18 at 22:00 Tamsulosin HCl (Flomax) 0.4 mg HS PO Last administered on 05/25/18at 22:08; Admin Dose 0.4 MG; Start 05/21/18 at 22:00 Miscellaneous Information 1 ea NOTE XX ; Start 05/21/18 at 18:00 Glucose (Glutose) 15 gm Q15M PRN PO DECREASED GLUCOSE; Start 05/21/18 at 18:00 Glucose (Glutose) 22.5 gm Q15M PRN PO DECREASED GLUCOSE; Start 05/21/18 at 18:00 Dextrose (D50w Syringe) 25 ml Q15M PRN IV DECREASED GLUCOSE; Start 05/21/18 at 18:00 Dextrose (D50w Syringe) 50 ml Q15M PRN IV DECREASED GLUCOSE; Start 05/21/18 at 18:00 Glucagon (Glucagen) 1 mg Q15M PRN IM DECREASED GLUCOSE; Start 05/21/18 at 18:00 Glucose (Glutose) 15 gm Q15M PRN BUCCAL DECREASED GLUCOSE; Start 05/21/18 at 18:00 Simethicone (Mylicon) 80 mg TID PRN PO DISTENSION/GAS/BLOATING; Start 05/22/18 at 23:30 Al Hydrox/Mg Hydrox/Simethicone (Mag-Al Plus) 30 ml Q6H PRN PO GASTROINTESTINAL UPSET Last administered on 05/22/18at 23:32; Admin Dose 30 ML; Start 05/22/18 at 23:30 Pantoprazole (Protonix Tab) 40 mg DAILY@06 PO Last administered on 05/26/18at 06:53; Admin Dose 40 MG; Start 05/23/18 at 06:00 Insulin Aspart (Novolog Insulin Pen) (Adult SC Insulin - Moder... WITH MEALS BEDTIME SC Last administered on 05/25/18at 18:30; Admin Dose 4 UNIT; Start 05/25/18 at 12:00 Ertapenem 1 gm/ Sodium Chloride 100 ml @ 200 mls/hr Q24H IVPB Last administered on 05/25/18at 17:58; Admin Dose 200 MLS/HR; Start 05/25/18 at 16:30 Sodium Hypochlorite (Dakin'S (Dilute )) 1 applic DAILY IRR Last ad ministered on 05/26/18at 09:32; Admin Dose 1 APPLIC; Start 05/25/18 at 18:00 Carbamazepine (Tegretol Xr) 200 mg Q12 PO Last administered on 05/26/18at 09:33; Admin Dose 200 MG; Start 05/26/18 at 09:00 Meds reviewed: Yes Allergies Coded Allergies: mushroom (Verified Allergy, Severe, 05/21/18) swollen throat, No Known Drug Allergy (Verified Allergy, Unknown, 05/21/18) Allergies Reviewed: Yes Labs/Studies Labs Reviewed: Reviewed by anesthesiologist Result Diagram: 05/26/18 0554 05/26/18 0554 Laboratory Tests 05/26/18 05:54 test: N/A Studies: ECG (SR) Pre-procedure Exam Last vitals Vital Signs Date Temp Pulse Resp B/P (MAP) Pulse Ox O2 O2 Flow FiO2 Time Delivery Rate 05/26/18 97.9 70 18 153/80 93 Room Air 08:00 (104) Airway: Adequate mouth opening Mallampati: Mallampati II Teeth: Normal Lung: Normal Heart: Normal ASA Physical Status ASA physical status: 3 Emergency: None Planned Anesthetic General/MAC: ETT Pre-operative Attestations Prior to commencing anesthesia and surgery, the patient was re-evaluated, there was verification of: *The patient's identity *The results of appropriate recent lab work and preoperative vital signs *The above evaluation not changing prior to induction *Anesthetic plan, risk benefits, alternative and complications discussed with patient/family; questions answered; patient/family understands, accepts and wishes to proceed. ARABELLA WINN May 26, 2018 11:46
--- NOTE | 2018-05-26 12:41 | CONS ---
Assessment/Plan Assessment/Plan Assessment/Plan (Daily) 1. acute kidney injury 2/2 ATN from osteomyelitis 2. 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 Right foot osteomyelitis 4. Anemia of CKD/Anemia of chronic disease 5. H/O DM II, 6. H/o HTN 7. H/o HL 8. acute hyperkalemia Resolved Plan: BUN/Cr- 31/1.33, K 5.4- kayexalate given for today s/p IVF before, Currently on IV abx Ertapenem 1 gram I Vdaily , renally dose all abx and monitor electrolytes Procardia XL 90mg po daily for HTN, IV h hydralazine prn SBP more than 150 mm hg will follow up Consultation Date/Type/Reason Admit Date/Time May 21, 2018 at 17:16 Initial Consult Date 05/22/18 Type of Consult NEPHROLOGY Requesting Provider: HOLLIS BROWN MD Date/Time of Note DATE: 05/26/18 TIME: 12:40 Exam/Review of Systems Exam Vitals Vital Signs Date Temp Pulse Resp B/P (MAP) Pulse Ox O2 O2 Flow FiO2 Time Delivery Rate 05/26/18 97.9 70 18 153/80 93 Room Air 08:00 (104) Intake and Output 05/25/18 05/25/18 05/26/18 1515:00 23:00 07:00 IntakeIntake Total 50 ml 1930 ml BalanceBalance 50 ml 1930 ml Exam Constitutional: alert, oriented Psych: anxiety Head: normocephalic Neck: supple, non-tender Respiratory: clear to auscultation Cardiovascular: regular rate and rhythm Gastrointestinal: soft, non-tender Musculoskeletal: other (right foot with amputated toes, left foot with dressing in place Neurological: F[employer] II-XII intact, nl mental status, nl speech Results Result Diagram: 05/26/18 0554 05/26/18 0554 Results 24hrs Laboratory Tests Test 05/25/18 17:51 05/25/18 22:04 05/26/18 05:54 05/26/18 08:20 Bedside Glucose 198 125 116 White Blood Count 5.4 Red Blood Count 3.59 #L Hemoglobin 10.0 #L Hematocrit 31.4 #L Mean Corpuscular 87.5 Volume Mean Corpuscular 27.9 L Hemoglobin Mean Corpuscular 31.8 L Hemoglobin Concent Red Cell 13.0 Distribution Width Platelet Count 478 #H Mean Platelet Volume 9.7 Immature 0.400 Granulocytes % Neutrophils % 65.0 Lymphocytes % 20.1 Monocytes % 6.8 Eosinophils % 6.8 Basophils % 0.9 Nucleated Red Blood 0.0 Cells % Immature 0.020 Granulocytes # Neutrophils # 3.5 Lymphocytes # 1.1 Monocytes # 0.4 Eosinophils # 0.4 Basophils # 0.1 Nucleated Red Blood 0.0 Cells # Sodium Level 141 Potassium Level 5.4 H Chloride Level 99 Carbon Dioxide Level 27 Anion Gap 15 H Blood Urea Nitrogen 31 H Creatinine 1.33 H Est Glomerular 56 L Filtrat Rate mL/min Glucose Level 128 # Calcium Level 10.3 H Test 05/26/18 12:08 Bedside Glucose 170 Medications Medication Current Medications IV Flush (NS 3 ml) 3 ml PER PROTOCOL IV ; Start 05/21/18 at 17:30 Ondansetron HCl (Zofran Inj) 4 mg Q6H PRN IV NAUSEA/VOMITING; Start 05/21/18 at 17:30 Heparin Sodium (Porcine) (Heparin (5000 Units/1ml)) 5,000 unit Q8 SC Last administered on 05/26/18 06:58; Admin Dose 5,000 UNIT; Start 05/21/18 at 22:00 Acetaminophen/ Hydrocodone Bitart ([place] (10/325)) 1 tab Q4H PRN PO MODERATE PAIN LEVEL 4-6 Last administered on 05/22/18 09:43; Admin Dose 1 TAB; Start 05/21/18 at 18:00 Morphine Sulfate (morphine) 4 mg Q4H PRN IV BREAKTHROUGH PAIN Last administered on 05/26/18at 11:42; Admin Dose 4 MG; Start 05/21/18 at 18:00 Diagnostic Test (Pha) (Accu-Chek) 1 ea 02 XX Last administered on 05/25/18 02:09; Admin Dose 1 EA; Start 05/22/18 at 02:00 Insulin Glargine (Lantus) 10 units DAILY@2000 SC Last administered on 05/25/18 22:11; Admin Dose 10 UNITS; Start 05/21/18 at 23:00 Aspirin (Halfprin) 81 mg DAILY PO Last administered on 05/26/18 09:32; Admin Dose 81 MG; Start 05/22/18 at 09:00 Fluoxetine HCl (Prozac) 40 mg DAILY PO Last administered on 05/26/18 09:33; Admin Dose 40 MG; Start 05/22/18 at 09:00 Folic Acid (Folic Acid) 1 mg DAILY PO Last administered on 05/26/18 09:32; Admin Dose 1 MG; Start 05/22/18 at 09:00 Gabapentin (Neurontin) 200 mg BID PO Last administered on 05/26/18 09:32; Admin Dose 200 MG; Start 05/21/18 at 22:00 Nifedipine (Procardia Xl) 90 mg DAILY PO Last administered on 05/26/18 09:33; Admin Dose 90 MG; Start 05/22/18 at 09:00 Phenytoin (Dilantin) 300 mg BID PO Last administered on 05/26/18 09:32; Admin Dose 300 MG; Start 05/21/18 at 21:00 Atorvastatin Calcium (Lipitor) 40 mg HS PO Last administered on 05/25/18 22:08; Admin Dose 40 MG; Start 05/21/18 at 22:00 Tamsulosin HCl (Flomax) 0.4 mg HS PO Last administered on 05/25/18 22:08; Admin Dose 0.4 MG; Start 05/21/18 at 22:00 Miscellaneous Information 1 ea NOTE XX ; Start 05/21/18 at 18:00 Glucose (Glutose) 15 gm Q15M PRN PO DECREASED GLUCOSE; Start 05/21/18 at 18:00 Glucose (Glutose) 22.5 gm Q15M PRN PO DECREASED GLUCOSE; Start 05/21/18 at 18:00 Dextrose (D50w Syringe) 25 ml Q15M PRN IV DECREASED GLUCOSE; Start 05/21/18 at 18:00 Dextrose (D50w Syringe) 50 ml Q15M PRN IV DECREASED GLUCOSE; Start 05/21/18 at 18:00 Glucagon (Glucagen) 1 mg Q15M PRN IM DECREASED GLUCOSE; Start 05/21/18 at 18:00 Glucose (Glutose) 15 gm Q15M PRN BUCCAL DECREASED GLUCOSE; Start 05/21/18 at 18:00 Simethicone (Mylicon) 80 mg TID PRN PO DISTENSION/GAS/BLOATING; Start 05/22/18 at 23:30 Al Hydrox/Mg Hydrox/Simethicone (Mag-Al Plus) 30 ml Q6H PRN PO GASTROINTESTINAL UPSET Last administered on 05/22/18 23:32; Admin Dose 30 ML; Start 05/22/18 at 23:30 Pantoprazole (Protonix Tab) 40 mg DAILY@06 PO Last administered on 05/26/18 06:53; Admin Dose 40 MG; Start 05/23/18 at 06:00 Insulin Aspart (Novolog Insulin Pen) (Adult SC Insulin - Moder... WITH MEALS BEDTIME SC Last administered on 05/26/18 12:31; Admin Dose 2 UNIT; Start 05/25/18 at 12:00 Ertapenem 1 gm/ Sodium Chloride 100 ml @ 200 mls/hr Q24H IVPB Last administered on 05/25/18 17:58; Admin Dose 200 MLS/HR; Start 05/25/18 at 16:30 Sodium Hypochlorite (Dakin'S (Dilute )) 1 applic DAILY IRR Last adm inistered on 05/26/18 09:32; Admin Dose 1 APPLIC; Start 05/25/18 at 18:00 Carbamazepine (Tegretol Xr) 200 mg Q12 PO Last administered on 05/26/18 09:33; Admin Dose 200 MG; Start 05/26/18 at 09:00 BHARATH NARANJO MD May 26, 2018 12:41
--- NOTE | 2018-05-26 13:46 | CONS ---
Assessment/Plan Assessment/Plan Hospital Course (Demo Recall) No acute changes patient is awake no fevers overnight Microbiology: Wound culture growing diphtheroids and Citrobacter free 1 day, multidrug-resistant X-ray of the foot revealed bone marrow edema with metatarsal remnants but no nurys bone destructive change to confirm osteomyelitis. Findings could represent either early osteomyelitis versus reactive change secondary to adjacent tissue inflammation. No abscess is seen Antimicrobials: Invanz PHYSICAL EXAMINATION: GENERAL: This is a well-developed, middle-aged man who is in no distress. HEENT: Head atraumatic, normocephalic. NECK: Supple. CHEST: Rise symmetrical. Breath sounds diminished bases HEART: S1, S2. ABDOMEN: Soft, bowel sounds present. EXTREMITIES: Foot dressing intact ASSESSMENT: 1. Right diabetic foot ulceration questionable osteomyelitis, status post multiple debridement 2. Diabetes 2. Diabetic neuropathy 3. Hypertension 4. EtOH abuse PLAN: The patient remains stable, per dw podiatry will keep on current abx for 4 weeks Consultation Date/Type/Reason Admit Date/Time May 21, 2018 at 17:16 Initial Consult Date 05/22/18 Type of Consult id Requesting Provider: HOLLIS BROWN MD Date/Time of Note DATE: 05/26/18 TIME: 13:45 Exam/Review of Systems Exam Vitals Vital Signs Date Temp Pulse Resp B/P (MAP) Pulse Ox O2 O2 Flow FiO2 Time Delivery Rate 05/26/18 97.9 70 18 153/80 93 Room Air 08:00 (104) Intake and Output 05/25/18 05/25/18 05/26/18 1515:00 23:00 07:00 IntakeIntake Total 50 ml 1930 ml BalanceBalance 50 ml 1930 ml Results Result Diagram: 05/26/18 0554 05/26/18 0554 Results 24hrs Laboratory Tests Test 05/25/18 17:51 05/25/18 22:04 05/26/18 05:54 05/26/18 08:20 Bedside Glucose 198 125 116 White Blood Count 5.4 Red Blood Count 3.59 #L Hemoglobin 10.0 #L Hematocrit 31.4 #L Mean Corpuscular 87.5 Volume Mean Corpuscular 27.9 L Hemoglobin Mean Corpuscular 31.8 L Hemoglobin Concent Red Cell 13.0 Distribution Width Platelet Count 478 #H Mean Platelet Volume 9.7 Immature 0.400 Granulocytes % Neutrophils % 65.0 Lymphocytes % 20.1 Monocytes % 6.8 Eosinophils % 6.8 Basophils % 0.9 Nucleated Red Blood 0.0 Cells % Immature 0.020 Granulocytes # Neutrophils # 3.5 Lymphocytes # 1.1 Monocytes # 0.4 Eosinophils # 0.4 Basophils # 0.1 Nucleated Red Blood 0.0 Cells # Sodium Level 141 Potassium Level 5.4 H Chloride Level 99 Carbon Dioxide Level 27 Anion Gap 15 H Blood Urea Nitrogen 31 H Creatinine 1.33 H Est Glomerular 56 L Filtrat Rate mL/min Glucose Level 128 # Calcium Level 10.3 H Test 05/26/18 12:08 Bedside Glucose 170 Medications Medication Current Medications IV Flush (NS 3 ml) 3 ml PER PROTOCOL IV ; Start 05/21/18 at 17:30 Ondansetron HCl (Zofran Inj) 4 mg Q6H PRN IV NAUSEA/VOMITING; Start 05/21/18 at 17:30 Heparin Sodium (Porcine) (Heparin (5000 Units/1ml)) 5,000 unit Q8 SC Last administered on 05/26/18at 06:58; Admin Dose 5,000 UNIT; Start 05/21/18 at 22:00 Acetaminophen/ Hydrocodone Bitart ([place] (10/325)) 1 tab Q4H PRN PO MODERATE PAIN LEVEL 4-6 Last administered on 05/22/18 09:43; Admin Dose 1 TAB; Start 05/21/18 at 18:00 Morphine Sulfate (morphine) 4 mg Q4H PRN IV BREAKTHROUGH PAIN Last administered on 05/26/18 11:42; Admin Dose 4 MG; Start 05/21/18 at 18:00 Diagnostic Test (Pha) (Accu-Chek) 1 ea 02 XX Last administered on 05/25/18 02:09; Admin Dose 1 EA; Start 05/22/18 at 02:00 Insulin Glargine (Lantus) 10 units DAILY@2000 SC Last administered on 05/25/18 22:11; Admin Dose 10 UNITS; Start 05/21/18 at 23:00 Aspirin (Halfprin) 81 mg DAILY PO Last administered on 05/26/18 09:32; Admin Dose 81 MG; Start 05/22/18 at 09:00 Fluoxetine HCl (Prozac) 40 mg DAILY PO Last administered on 05/26/18 09:33; Admin Dose 40 MG; Start 05/22/18 at 09:00 Folic Acid (Folic Acid) 1 mg DAILY PO Last administered on 05/26/18 09:32; Admin Dose 1 MG; Start 05/22/18 at 09:00 Gabapentin (Neurontin) 200 mg BID PO Last administered on 05/26/18 09:32; Admin Dose 200 MG; Start 05/21/18 at 22:00 Nifedipine (Procardia Xl) 90 mg DAILY PO Last administered on 05/26/18 09:33; Admin Dose 90 MG; Start 05/22/18 at 09:00 Phenytoin (Dilantin) 300 mg BID PO Last administered on 05/26/18 09:32; Admin Dose 300 MG; Start 05/21/18 at 21:00 Atorvastatin Calcium (Lipitor) 40 mg HS PO Last administered on 05/25/18 22:08; Admin Dose 40 MG; Start 05/21/18 at 22:00 Tamsulosin HCl (Flomax) 0.4 mg HS PO Last administered on 05/25/18 22:08; Admin Dose 0.4 MG; Start 05/21/18 at 22:00 Miscellaneous Information 1 ea NOTE XX ; Start 05/21/18 at 18:00 Glucose (Glutose) 15 gm Q15M PRN PO DECREASED GLUCOSE; Start 05/21/18 at 18:00 Glucose (Glutose) 22.5 gm Q15M PRN PO DECREASED GLUCOSE; Start 05/21/18 at 18:00 Dextrose (D50w Syringe) 25 ml Q15M PRN IV DECREASED GLUCOSE; Start 05/21/18 at 18:00 Dextrose (D50w Syringe) 50 ml Q15M PRN IV DECREASED GLUCOSE; Start 05/21/18 at 18:00 Glucagon (Glucagen) 1 mg Q15M PRN IM DECREASED GLUCOSE; Start 05/21/18 at 18:00 Glucose (Glutose) 15 gm Q15M PRN BUCCAL DECREASED GLUCOSE; Start 05/21/18 at 18:00 Simethicone (Mylicon) 80 mg TID PRN PO DISTENSION/GAS/BLOATING; Start 05/22/18 at 23:30 Al Hydrox/Mg Hydrox/Simethicone (Mag-Al Plus) 30 ml Q6H PRN PO GASTROINTESTINAL UPSET Last administered on 05/22/18 23:32; Admin Dose 30 ML; Start 05/22/18 at 23:30 Pantoprazole (Protonix Tab) 40 mg DAILY@06 PO Last administered on 05/26/18at 06:53; Admin Dose 40 MG; Start 05/23/18 at 06:00 Insulin Aspart (Novolog Insulin Pen) (Adult SC Insulin - Moder... WITH MEALS BEDTIME SC Last administered on 05/26/18 12:31; Admin Dose 2 UNIT; Start 05/25/18 at 12:00 Ertapenem 1 gm/ Sodium Chloride 100 ml @ 200 mls/hr Q24H IVPB Last administered on 05/25/18 17:58; Admin Dose 200 MLS/HR; Start 05/25/18 at 16:30 Sodium Hypochlorite (Dakin'S (Dilute )) 1 applic DAILY IRR Last administered on 05/26/18 09:32; Admin Dose 1 APPLIC; Start 05/25/18 at 18:00 Carbamazepine (Tegretol Xr) 200 mg Q12 PO Last administered on 05/26/18at 09:33; Admin Dose 200 MG; Start 05/26/18 at 09:00 GABBY HERRERA NP May 26, 2018 13:46
[2018-05-26 14:00] VITALS: BP 129/79; PULSE 84; RESP 18
--- NOTE | 2018-05-26 14:55 | PN ---
Date/Time of Note Date/Time of Note DATE: 05/26/18 TIME: 14:54 Assessment/Plan VTE Prophylaxis Risk score (from Nsg)>0 risk: 2 SCD applied (from Ns): No SCD contraindicated: other Pharmacological prophylaxis: heparin Lines/Catheters IV Catheter Type (from Nrs): Saline Lock Urinary Cath still in place: No Assessment/Plan Hospital Course S: Patient seen by ID team earlier today. No acute events overnight. O: VS -see below Physical exam: Gen: Well developed man in no acute distress, sitting up in bed. Eyes: PERRL, no icterus HEENT: Moist mucous membranes, a dentulous, clear oropharynx Neck: Distended JVD. No lymphadenopathy Card: Regular rate and rhythm, no murmurs Pulm: Clear to auscultation bilaterally Abd: Soft, nontender, nondistended. Ext: R foot bandaged. L foot has black escar on tip of 1st and 2nd digits. Good peripheral pulses. Skin: Otherwise warm, dry, well perfused. Assessment/Plan: 53-year-old man with comorbidities including hypertension, diabetes mellitus type 2, dyslipidemia, seizure disorder, depression, alcoholism, and right foot osteomyelitis who presents with worsening R foot osteo. # R foot osteo- No evidence of systemic sepsis. Podiatry and ID teams on the case per -For now continue empiric vanc and cefepime. - Dr Laureano following and likely planning for next debridement in 24 hours. - Pain control with norco, follow-up ID recommendations as well, will need 4 weeks IV abx. #HAZEL- -slowly improving -Continue monitor BUN/creatinine levels daily as well as urine output, follow-up renal recommendations #Hyperkalemia -resolved now, may be due to heavy NSAID use from pain. -Monitor, continue medical management with kayexalate as needed - Dr. Hopkins following, follow-up his renal recommendations # Diabetes mellitus type 2-A1c equals 7.5, sugars presently stable -Continue sliding scale insulin along with pre-meal insulin and basal insulin. # Hypertension-stable -Continue current antihypertensives. -Holding ARB given the patient's renal function. # Alcohol abuse- He reports weeks of sobriety -Monitor for withdrawal # Depression. -Continue SSRIs. DVT: heparin GI: None Result Diagram: 05/26/18 0554 05/26/18 0554 Results 24hrs Laboratory Tests Test 3/25/19 17:51 05/25/18 22:04 05/26/18 05:54 05/26/18 08:20 Bedside Glucose 198 125 116 White Blood Count 5.4 Red Blood Count 3.59 #L Hemoglobin 10.0 #L Hematocrit 31.4 #L Mean Corpuscular 87.5 Volume Mean Corpuscular 27.9 L Hemoglobin Mean Corpuscular 31.8 L Hemoglobin Concent Red Cell 13.0 Distribution Width Platelet Count 478 #H Mean Platelet Volume 9.7 Immature 0.400 Granulocytes % Neutrophils % 65.0 Lymphocytes % 20.1 Monocytes % 6.8 Eosinophils % 6.8 Basophils % 0.9 Nucleated Red Blood 0.0 Cells % Immature 0.020 Granulocytes # Neutrophils # 3.5 Lymphocytes # 1.1 Monocytes # 0.4 Eosinophils # 0.4 Basophils # 0.1 Nucleated Red Blood 0.0 Cells # Sodium Level 141 Potassium Level 5.4 H Chloride Level 99 Carbon Dioxide Level 27 Anion Gap 15 H Blood Urea Nitrogen 31 H Creatinine 1.33 H Est Glomerular 56 L Filtrat Rate mL/min Glucose Level 128 # Calcium Level 10.3 H Test 05/26/18 12:08 Bedside Glucose 170 Exam/Review of Systems Exam Vitals Vital Signs Date Temp Pulse Resp B/P (MAP) Pulse Ox O2 O2 Flow FiO2 Time Delivery Rate 05/26/18 97.9 70 18 153/80 93 Room Air 08:00 (104) Intake and Output 05/25/18 05/25/18 05/26/18 1515:00 23:00 07:00 IntakeIntake Total 50 ml 1930 ml BalanceBalance 50 ml 1930 ml Results Results 24hrs Laboratory Tests Test 05/25/18 17:51 05/25/18 22:04 05/26/18 05:54 05/26/18 08:20 Bedside Glucose 198 125 116 White Blood Count 5.4 Red Blood Count 3.59 #L Hemoglobin 10.0 #L Hematocrit 31.4 #L Mean Corpuscular 87.5 Volume Mean Corpuscular 27.9 L Hemoglobin Mean Corpuscular 31.8 L Hemoglobin Concent Red Cell 13.0 Distribution Width Platelet Count 478 #H Mean Platelet Volume 9.7 Immature 0.400 Granulocytes % Neutrophils % 65.0 Lymphocytes % 20.1 Monocytes % 6.8 Eosinophils % 6.8 Basophils % 0.9 Nucleated Red Blood 0.0 Cells % Immature 0.020 Granulocytes # Neutrophils # 3.5 Lymphocytes # 1.1 Monocytes # 0.4 Eosinophils # 0.4 Basophils # 0.1 Nucleated Red Blood 0.0 Cells # Sodium Level 141 Potassium Level 5.4 H Chloride Level 99 Carbon Dioxide Level 27 Anion Gap 15 H Blood Urea Nitrogen 31 H Creatinine 1.33 H Est Glomerular 56 L Filtrat Rate mL/min Glucose Level 128 # Calcium Level 10.3 H Test 05/26/18 12:08 Bedside Glucose 170 Medications Medication Current Medications IV Flush (NS 3 ml) 3 ml PER PROTOCOL IV ; Start 05/21/18 at 17:30 Ondansetron HCl (Zofran Inj) 4 mg Q6H PRN IV NAUSEA/VOMITING; Start 05/21/18 at 17:30 Heparin Sodium (Porcine) (Heparin (5000 Units/1ml)) 5,000 unit Q8 SC Last administered on 05/26/18at 14:23; Admin Dose 5,000 UNIT; Start 05/21/18 at 22:00 Acetaminophen/ Hydrocodone Bitart ([place] (10/325)) 1 tab Q4H PRN PO MODERATE PAIN LEVEL 4-6 Last administered on 05/22/18 09:43; Admin Dose 1 TAB; Start 05/21/18 at 18:00 Morphine Sulfate (morphine) 4 mg Q4H PRN IV BREAKTHROUGH PAIN Last administered on 05/26/18 11:42; Admin Dose 4 MG; Start 05/21/18 at 18:00 Diagnostic Test (Pha) (Accu-Chek) 1 ea 02 XX Last administered on 05/25/18 02:09; Admin Dose 1 EA; Start 05/22/18 at 02:00 Insulin Glargine (Lantus) 10 units DAILY@2000 SC Last administered on 05/25/18 22:11; Admin Dose 10 UNITS; Start 05/21/18 at 23:00 Aspirin (Halfprin) 81 mg DAILY PO Last administered on 05/26/18 09:32; Admin Dose 81 MG; Start 05/22/18 at 09:00 Fluoxetine HCl (Prozac) 40 mg DAILY PO Last administered on 05/26/18 09:33; Admin Dose 40 MG; Start 05/22/18 at 09:00 Folic Acid (Folic Acid) 1 mg DAILY PO Last administered on 05/26/18 09:32; Admin Dose 1 MG; Start 05/22/18 at 09:00 Gabapentin (Neurontin) 200 mg BID PO Last administered on 05/26/18 09:32; Admin Dose 200 MG; Start 05/21/18 at 22:00 Nifedipine (Procardia Xl) 90 mg DAILY PO Last administered on 05/26/18 09:33; Admin Dose 90 MG; Start 05/22/18 at 09:00 Phenytoin (Dilantin) 300 mg BID PO Last administered on 05/26/18 09:32; Admin Dose 300 MG; Start 05/21/18 at 21:00 Atorvastatin Calcium (Lipitor) 40 mg HS PO Last administered on 05/25/18 22:08; Admin Dose 40 MG; Start 05/21/18 at 22:00 Tamsulosin HCl (Flomax) 0.4 mg HS PO Last administered on 05/25/18 22:08; Admin Dose 0.4 MG; Start 05/21/18 at 22:00 Miscellaneous Information 1 ea NOTE XX ; Start 05/21/18 at 18:00 Glucose (Glutose) 15 gm Q15M PRN PO DECREASED GLUCOSE; Start 05/21/18 at 18:00 Glucose (Glutose) 22.5 gm Q15M PRN PO DECREASED GLUCOSE; Start 05/21/18 at 18:00 Dextrose (D50w Syringe) 25 ml Q15M PRN IV DECREASED GLUCOSE; Start 05/21/18 at 18:00 Dextrose (D50w Syringe) 50 ml Q15M PRN IV DECREASED GLUCOSE; Start 05/21/18 at 18:00 Glucagon (Glucagen) 1 mg Q15M PRN IM DECREASED GLUCOSE; Start 05/21/18 at 18:00 Glucose (Glutose) 15 gm Q15M PRN BUCCAL DECREASED GLUCOSE; Start 05/21/18 at 18:00 Simethicone (Mylicon) 80 mg TID PRN PO DISTENSION/GAS/BLOATING; Start 05/22/18 at 23:30 Al Hydrox/Mg Hydrox/Simethicone (Mag-Al Plus) 30 ml Q6H PRN PO GASTROINTESTINAL UPSET Last administered on 05/22/18 23:32; Admin Dose 30 ML; Start 05/22/18 at 23:30 Pantoprazole (Protonix Tab) 40 mg DAILY@06 PO Last administered on 05/26/18 06:53; Admin Dose 40 MG; Start 05/23/18 at 06:00 Insulin Aspart (Novolog Insulin Pen) (Adult SC Insulin - Moder... WITH MEALS BEDTIME SC Last administered on 05/26/18 12:31; Admin Dose 2 UNIT; Start 05/25/18 at 12:00 Ertapenem 1 gm/ Sodium Chloride 100 ml @ 200 mls/hr Q24H IVPB Last administered on 05/25/18at 17:58; Admin Dose 200 MLS/HR; Start 05/25/18 at 16:30 Sodium Hypochlorite (Dakin'S (Dilute )) 1 applic DAILY IRR Last administered on 05/26/18 09:32; Admin Dose 1 APPLIC; Start 05/25/18 at 18:00 Carbamazepine (Tegretol Xr) 200 mg Q12 PO Last administered on 05/26/18 09:33; Admin Dose 200 MG; Start 05/26/18 at 09:00 BEVERLY DUBON May 26, 2018 14:55
[2018-05-26] MEDS: ERTAPENEM SODIUM 1 GM in SOD CHLORIDE 0.9% 100 ML IVPB SCH (17:13)
[2018-05-26 20:00] VITALS: BP 123/73; PULSE 82; RESP 18
[2018-05-26] MEDS: TAMSULOSIN (SR) 0.4 MG CAP PO SCH (22:08)
[2018-05-26] MEDS: ATORVASTATIN 40 MG TAB PO SCH (22:08)
[2018-05-26] MEDS: INSULIN GLARGINE [LANTus] (100 UNITS/ML) SYG SC SCH (22:19)
[2018-05-27] VITALS (17 sets, daily range): BP systolic 110–158; BP diastolic 56–99; PULSE 68–89; RESP 10–21
[2018-05-27] MEDS: ACCU-CHEK XX SCH (02:00)
[2018-05-27] MEDS: INSULIN ASPART [NOVOLOG] 3 ML PEN SC SCH ×5 (02:01→20:38)
[2018-05-27] MEDS: morphine 4 MG/ML VIAL IV PRN ×4 (02:03→20:43)
[2018-05-27] MEDS: HEPARIN 5,000 UNIT/1 ML VIAL SC SCH ×3 (05:09→20:39)
[2018-05-27] MEDS: PANTOPRAZOLE (EC) 40 MG TAB PO SCH (05:09)
--- NOTE | 2018-05-27 06:45 | HPN ---
Date/Time of Note Date/Time of Note DATE: 05/27/18 TIME: 06:45 Interval H&P Admission Note Pt. seen H&P reviewed: No system changes BRYANT GARCIA DPM May 27, 2018 06:45
[2018-05-27] MEDS: SODIUM HYPOCHLORITE (1/40) 1 APPLIC BTL IRR SCH (08:12)
[2018-05-27] MEDS ORDERED: DIPHENHYDRAMINE 50 MG INJ IV PRN (08:30)
[2018-05-27] MEDS ORDERED: FENTAnyl 50 MCG/ML VIAL IV PRN ×2 (08:30)
[2018-05-27] MEDS ORDERED: HYDROmorphONE 1 MG/5 ML IV SYRINGE IV PRN ×2 (08:30)
[2018-05-27] MEDS ORDERED: ALBUTEROL 0.083% (NEB) 2.5 MG/3 ML AMP HHN PRN (08:30)
[2018-05-27] MEDS ORDERED: ONDANSETRON 4 MG INJ IV PRN (08:30)
[2018-05-27] MEDS ORDERED: OXYCODONE/ACETAMINOPHEN (5/325) TAB PO PRN ×2 (08:30)
[2018-05-27] MEDS ORDERED: LABETALOL HCL 20MG INJ IV PRN (08:30)
[2018-05-27] MEDS ORDERED: morphine (1 MG/ML) 10ML SYRINGE IV PRN ×2 (08:30)
[2018-05-27] MEDS ORDERED: MIDAZOLAM 1 MG/ML 2 ML INJ ONE (08:37)
[2018-05-27] MEDS ORDERED: FENTAnyl 50 MCG/ML VIAL ONE (08:37)
[2018-05-27] MEDS ORDERED: PROPOFOL 40 ML ONE (08:37)
[2018-05-27] MEDS ORDERED: LIDOCAINE 2% (SDV) 5 ML INJ ONE (08:37)
[2018-05-27] MEDS: FOLIC ACID 1 MG TAB PO SCH (09:00)
[2018-05-27] MEDS: GABAPENTIN 100 MG CAP PO SCH ×2 (09:00→20:44)
[2018-05-27] MEDS: ASPIRIN (EC) 81 MG TAB PO SCH (09:00)
[2018-05-27] MEDS: carBAMAZepine (XR) 100 MG TABSR PO SCH ×2 (09:00→20:45)
[2018-05-27] MEDS: PHENYTOIN 100 MG CAP PO SCH ×2 (09:00→20:44)
[2018-05-27] MEDS: NIFEdipine (XL) 90 MG TAB PO SCH (09:00)
[2018-05-27] MEDS: FLUOXETINE 20 MG CAP PO SCH (09:00)
[2018-05-27] MEDS ORDERED: LIDOCAINE 1% (MPF) 30 ML INJ ONE (09:25)
[2018-05-27] MEDS ORDERED: POLYMYXIN B 500000 UNIT INJ ONE (09:25)
[2018-05-27] MEDS ORDERED: BUPIVACAINE 0.25% (MPF) 30 ML INJ ONE (09:25)
[2018-05-27] MEDS ORDERED: BACITRACIN 50000 UNITS INJ ONE (09:49)
[2018-05-27] MEDS ORDERED: PHENYLephrine (100 MCG/ML) 10ML SYG ONE (10:02)
--- NOTE | 2018-05-27 10:46 | SIPON ---
Date/Time of Note Date/Time of Note DATE: 05/27/18 TIME: 10:46 Operative Report Preoperative Diagnosis Right foot diabetic ulcer Right foot osteomyelitis Hx of right foot TMA DM2 with peripheral neuropathy Postoperative Diagnosis Right foot diabetic ulcer Right foot osteomyelitis Hx of right foot TMA DM2 with peripheral neuropathy Operation/Procedure Performed right foot excisional debridement application of skin allograft application of antibiotic block Surgeon see signature line certified pharmacist assistant none Anesthesia: MAC Estimated blood loss: 0 - 10 ml's Transfusion Required none Specimen none Grafts/Implants Alesha Ag skin allograft Complications none BRYANT GARCIA DPM May 27, 2018 10:46
--- NOTE | 2018-05-27 10:48 | OPR ---
Date/Time of Note Date/Time of Note DATE: 05/27/18 TIME: 10:48 Operative Report Preoperative Diagnosis Right foot diabetic ulcer Right foot osteomyelitis Hx of right foot TMA DM2 with peripheral neuropathy Postoperative Diagnosis Right foot diabetic ulcer Right foot osteomyelitis Hx of right foot TMA DM2 with peripheral neuropathy Operation/Procedure Performed right foot excisional debridement application of skin allograft application of antibiotic block Surgeon see signature line [employer] Professor none Anesthesia Type: MAC Estimated Blood Loss: 0 - 10 ml's Transfusion none Specimen none Grafts/Implants Alesha Ag skin allograft Complications none Indications 53 y/o diabetic patient with hx of TMA and diabetic ulcer. Patient has a granular wound that does not probe to bone and is without purulence or tunneling. Discussed with patient application of allograft with antibiotic spacer and keeping non weight bearing in a cast due to ulcer being on the pl radha surface. Patient voiced understanding and addressed all of the patient's questions and concerns. No promises or guarantees were given. Procedure Description Patient was brought into the OR and placed on the OR table supine in the position. The right lower extremity was scrubbed, prepped, and draped in the usual aseptic manner. A formal time out was conducted. Attention was directed to the right plantar TMA diabetic ulcer site which measured 1.8 x 2 x 0.2cm which was granular in nature, no tunneling, no erythema, no probing to bone, no purulence was expressed or appreciated. Excisional debridement using a scalpel blade of skin/subQ was performed of the ulceration site. Hyperkeratotic tissue, biofilm, and non viable tissue was removed from the ulcer site. 3.6cm2 of area was debrided. Copious pulse lavage irrigation with antibiotic infuse saline was used for the ulceration site. A silver impregnated skin allograft was meshed 1:1.5 and applied to the ulceration and secured with skin kim and dressed with xeroform. A gentamicin antibiotic implant was also applied on top of the xeroform and secured within the dressing. A well padded below knee short leg cast was applied to the right lower extremity A tourniquet was applied but not inflated during the case Patient was transferred to the PACU with vital signs stable and neurovascular status intact. BRYANT GARCIA DPM May 27, 2018 10:48
--- NOTE | 2018-05-27 10:50 | PAC ---
Date/Time of Note Date/Time of Note DATE: 05/27/18 TIME: 10:50 Post-Anesthesia Notes Post-Anesthesia Note Last documented vital signs Vital Signs Date Temp Pulse Resp B/P (MAP) Pulse Ox O2 O2 Flow FiO2 Time Delivery Rate 05/27/18 97.8 10:49 05/27/18 97.8 81 82 18 18 148/85 98 98 Room 09:15 1043 (106 143 Air RA /86 Activity: WNL Respiratory function: WNL Cardiovascular function: WNL Mental status: Baseline Pain reasonably controlled: Yes Hydration appropriate: Yes Nausea/Vomiting absent: Yes RUIZ ELIZABETH May 27, 2018 10:50
--- NOTE | 2018-05-27 12:49 | CONS ---
Assessment/Plan Assessment/Plan Hospital Course (Demo Recall) No acute changes Microbiology: Wound culture growing diphtheroids and Citrobacter free 1 day, multidrug-resistant X-ray of the foot revealed bone marrow edema with metatarsal remnants but no nurys bone destructive change to confirm osteomyelitis. Findings could represent either early osteomyelitis versus reactive change secondary to adjacent tissue inflammation. No abscess is seen Antimicrobials: Invanz PHYSICAL EXAMINATION: GENERAL: This is a well-developed, middle-aged man who is in no distress. HEENT: Head atraumatic, normocephalic. NECK: Supple. CHEST: Rise symmetrical. Breath sounds diminished bases HEART: S1, S2. ABDOMEN: Soft, bowel sounds present. EXTREMITIES: Foot dressing intact ASSESSMENT: 1. Right diabetic foot ulceration questionable osteomyelitis, status post debridement with application of skin allograft 2. Diabetes 2. Diabetic neuropathy 3. Hypertension 4. EtOH abuse PLAN: The patient remains stable, continue abx to complete 4 weeks, podiatry rec-s Consultation Date/Type/Reason Admit Date/Time May 21, 2018 at 17:16 Initial Consult Date 05/22/18 Type of Consult id Requesting Provider: HOLLIS BROWN MD Date/Time of Note DATE: 05/27/18 TIME: 12:48 Exam/Review of Systems Exam Vitals Vital Signs Date Temp Pulse Resp B/P (MAP) Pulse Ox O2 O2 Flow FiO2 Time Delivery Rate 05/27/18 97.6 86 18 115/60 98 Room Air 12:29 (78) Intake and Output 05/26/18 05/26/18 05/27/18 1515:00 23:00 07:00 IntakeIntake Total 1200 ml BalanceBalance 1200 ml Results Result Diagram: 05/26/18 0554 05/27/18 0523 Results 24hrs Laboratory Tests Test 05/26/18 17:12 05/26/18 22:04 05/27/18 01:56 05/27/18 05:15 Bedside Glucose 198 151 215 82 Test 05/27/18 05:23 05/27/18 10:46 05/27/18 12:01 Sodium Level 142 Potassium Level 5.4 H Chloride Level 103 Carbon Dioxide Level 26 Anion Gap 13 Blood Urea Nitrogen 31 H Creatinine 1.59 H Est Glomerular 46 L Filtrat Rate mL/min Glucose Level 79 # Calcium Level 10.1 Phosphorus Level 5.3 H Magnesium Level 1.6 L Bedside Glucose 106 113 Medications Medication Current Medications IV Flush (NS 3 ml) 3 ml PER PROTOCOL IV ; Start 05/21/18 at 17:30 Ondansetron HCl (Zofran Inj) 4 mg Q6H PRN IV NAUSEA/VOMITING; Start 05/21/18 at 17:30 Heparin Sodium (Porcine) (Heparin (5000 Units/1ml)) 5,000 unit Q8 SC Last administered on 05/26/18 22:18; Admin Dose 5,000 UNIT; Start 05/21/18 at 22:00 Acetaminophen/ Hydrocodone Bitart ([place] (10325)) 1 tab Q4H PRN PO MODERATE PAIN LEVEL 4-6 Last administered on 05/22/18 09:43; Admin Dose 1 TAB; Start 05/21/18 at 18:00 Morphine Sulfate (morphine) 4 mg Q4H PRN IV BREAKTHROUGH PAIN Last administered on 05/27/18 06:33; Admin Dose 4 MG; Start 05/21/18 at 18:00 Diagnostic Test (Pha) (Accu-Chek) 1 ea 02 XX Last administered on 05/25/18 02:09; Admin Dose 1 EA; Start 05/22/18 at 02:00 Insulin Glargine (Lantus) 10 units DAILY@2000 SC Last administered on 05/26/18 22:19; Admin Dose 10 UNITS; Start 05/21/18 at 23:00 Aspirin (Halfprin) 81 mg DAILY PO Last administered on 05/26/18 09:32; Admin Dose 81 MG; Start 05/22/18 at 09:00 Fluoxetine HCl (Prozac) 40 mg DAILY PO Last administered on 05/26/18 09:33; Admin Dose 40 MG; Start 05/22/18 at 09:00 Folic Acid (Folic Acid) 1 mg DAILY PO Last administered on 05/26/18 09:32; Admin Dose 1 MG; Start 05/22/18 at 09:00 Gabapentin (Neurontin) 200 mg BID PO Last administered on 05/26/18 22:09; Admin Dose 200 MG; Start 05/21/18 at 22:00 Nifedipine (Procardia Xl) 90 mg DAILY PO Last administered on 05/26/18 09:33; Admin Dose 90 MG; Start 05/22/18 at 09:00 Phenytoin (Dilantin) 300 mg BID PO Last administered on 05/26/18at 22:08; Admin Dose 300 MG; Start 05/21/18 at 21:00 Atorvastatin Calcium (Lipitor) 40 mg HS PO Last administered on 05/26/18at 22:08; Admin Dose 40 MG; Start 05/21/18 at 22:00 Tamsulosin HCl (Flomax) 0.4 mg HS PO Last administered on 05/26/18at 22:08; Admin Dose 0.4 MG; Start 05/21/18 at 22:00 Miscellaneous Information 1 ea NOTE XX ; Start 05/21/18 at 18:00 Glucose (Glutose) 15 gm Q15M PRN PO DECREASED GLUCOSE; Start 05/21/18 at 18:00 Glucose (Glutose) 22.5 gm Q15M PRN PO DECREASED GLUCOSE; Start 05/21/18 at 18:00 Dextrose (D50w Syringe) 25 ml Q15M PRN IV DECREASED GLUCOSE; Start 05/21/18 at 18:00 Dextrose (D50w Syringe) 50 ml Q15M PRN IV DECREASED GLUCOSE; Start 05/21/18 at 18:00 Glucagon (Glucagen) 1 mg Q15M PRN IM DECREASED GLUCOSE; Start 05/21/18 at 18:00 Glucose (Glutose) 15 gm Q15M PRN BUCCAL DECREASED GLUCOSE; Start 05/21/18 at 18:00 Simethicone (Mylicon) 80 mg TID PRN PO DISTENSION/GAS/BLOATING; Start 05/22/18 at 23:30 Al Hydrox/Mg Hydrox/Simethicone (Mag-Al Plus) 30 ml Q6H PRN PO GASTROINTESTINAL UPSET Last administered on 05/22/18at 23:32; Admin Dose 30 ML; Start 05/22/18 at 23:30 Pantoprazole (Protonix Tab) 40 mg DAILY@06 PO Last administered on 05/26/18at 06:53; Admin Dose 40 MG; Start 05/23/18 at 06:00 Ertapenem 1 gm/ Sodium Chloride 100 ml @ 200 mls/hr Q24H IVPB Last administered on 05/26/18at 17:13; Admin Dose 200 MLS/HR; Start 05/25/18 at 16:30 Sodium Hypochlorite (Dakin'S (Dilute )) 1 applic DAILY IRR Last administered on 05/26/18at 09:32; Admin Dose 1 APPLIC; Start 05/25/18 at 18:00 Carbamazepine (Tegretol Xr) 200 mg Q12 PO Last administered on 05/26/18at 22:08; Admin Dose 200 MG; Start 05/26/18 at 09:00 Insulin Aspart (Novolog Insulin Pen) NOVOLOG *MILD* ALGORI... AC MEALS AND BE DTIME SC ; Start 05/27/18 at 17:35 GABBY HERRERA NP May 27, 2018 12:49
--- NOTE | 2018-05-27 15:21 | PN ---
Date/Time of Note Date/Time of Note DATE: 05/27/18 TIME: 15:21 Assessment/Plan VTE Prophylaxis Risk score (from Nsg)>0 risk: 3 SCD applied (from Nsg): No SCD contraindicated: other Pharmacological prophylaxis: heparin Lines/Catheters IV Catheter Type (from Nrsg): Peripheral IV Urinary Cath still in place: No Assessment/Plan Hospital Course S: Patient had his debridement performed earlier today by podiatry team. Seen by ID team as well. O: VS -see below Physical exam: Gen: Well developed man in no acute distress, sitting up in bed. Eyes: PERRL, no icterus HEENT: Moist mucous membranes, a dentulous, clear oropharynx Neck: Distended JVD. No lymphadenopathy Card: Regular rate and rhythm, no murmurs Pulm: Clear to auscultation bilaterally Abd: Soft, nontender, nondistended. Ext: R foot bandaged. L foot has black escar on tip of 1st and 2nd digits. Good peripheral pulses. Skin: Otherwise warm, dry, well perfused. Date/Time of Note Date/Time of Note DATE: 05/27/18 TIME: 10:48 Operative Report Preoperative Diagnosis Right foot diabetic ulcer Right foot osteomyelitis Hx of right foot TMA DM2 with peripheral neuropathy Postoperative Diagnosis Right foot diabetic ulcer Right foot osteomyelitis Hx of right foot TMA DM2 with peripheral neuropathy Operation/Procedure Performed right foot excisional debridement application of skin allograft application of antibiotic block Assessment/Plan: 53-year-old man with comorbidities including hypertension, diabetes mellitus type 2, dyslipidemia, seizure disorder, depression, alcoholism, and right foot osteomyelitis who presents with worsening R foot osteo. # R foot osteo- No evidence of systemic sepsis. Again status post right foot excisional debridement earlier today. -Continue wound care follow-up postop recommendations from podiatry team -Continue pain control with norco, and IV antibiotics Invanz, will need a total of 4 weeks treatment of this, case management order has been placed and they have set this up along with home health nursing for patient #HAZEL- -slowly improving -Continue monitor BUN/creatinine levels daily as well as urine output, fol low-up renal recommendations #Hyperkalemia -resolved now, may be due to heavy NSAID use from pain. -Monitor, continue medical management with kayexalate as needed - Dr. Hopkins following, follow-up his renal recommendations # Diabetes mellitus type 2-A1c equals 7.5, sugars presently stable -Continue sliding scale insulin along with pre-meal insulin and basal insulin. # Hypertension-stable -Continue current antihypertensives. -Holding ARB given the patient's renal function. # Alcohol abuse- He reports weeks of sobriety -Monitor for withdrawal # Depression. -Continue SSRIs. DVT: heparin GI: None Dispo: Likely home in 24 hours with IV antibiotics set up Invanz daily for 4 weeks total, along with home health nursing. Result Diagram: 05/26/18 0554 05/27/18 0523 Results 24hrs Laboratory Tests Test 05/26/18 17:12 05/26/18 22:04 05/27/18 01:56 05/27/18 05:15 Bedside Glucose 198 151 215 82 Test 05/27/18 05:23 05/27/18 10:46 05/27/18 12:01 Sodium Level 142 Potassium Level 5.4 H Chloride Level 103 Carbon Dioxide Level 26 Anion Gap 13 Blood Urea Nitrogen 31 H Creatinine 1.59 H Est Glomerular 46 L Filtrat Rate mL/min Glucose Level 79 # Calcium Level 10.1 Phosphorus Level 5.3 H Magnesium Level 1.6 L Bedside Glucose 106 113 Exam/Review of Systems Exam Vitals Vital Signs Date Temp Pulse Resp B/P (MAP) Pulse Ox O2 O2 Flow FiO2 Time Delivery Rate 05/27/18 98.6 89 18 110/56 99 Room Air 14:34 (74) Intake and Output 05/26/18 05/26/18 05/27/18 1515:00 23:00 07:00 IntakeIntake Total 1200 ml BalanceBalance 1200 ml Results Results 24hrs Laboratory Tests Test 05/26/18 17:12 05/26/18 22:04 05/27/18 01:56 05/27/18 05:15 Bedside Glucose 198 151 215 82 Test 05/27/18 05:23 05/27/18 10:46 05/27/18 12:01 Sodium Level 142 Potassium Level 5.4 H Chloride Level 103 Carbon Dioxide Level 26 Anion Gap 13 Blood Urea Nitrogen 31 H Creatinine 1.59 H Est Glomerular 46 L Filtrat Rate mL/min Glucose Level 79 # Calcium Level 10.1 Phosphorus Level 5.3 H Magnesium Level 1.6 L Bedside Glucose 106 113 Medications Medication Current Medications IV Flush (NS 3 ml) 3 ml PER PROTOCOL IV ; Start 05/21/18 at 17:30 Ondansetron HCl (Zofran Inj) 4 mg Q6H PRN IV NAUSEA/VOMITING; Start 05/21/18 at 17:30 Acetaminophen/ Hydrocodone Bitart ([place] (10/325)) 1 tab Q4H PRN PO MODERATE PAIN LEVEL 4-6 Last administered on 05/22/18 09:43; Admin Dose 1 TAB; Start 05/21/18 at 18:00 Morphine Sulfate (morphine) 4 mg Q4H PRN IV BREAKTHROUGH PAIN Last administered on 05/27/18 06:33; Admin Dose 4 MG; Start 05/21/18 at 18:00 Diagnostic Test (Pha) (Accu-Chek) 1 ea 02 XX Last administered on 05/25/18 02:09; Admin Dose 1 EA; Start 05/22/18 at 02:00 Insulin Glargine (Lantus) 10 units DAILY@2000 SC Last administered on 05/26/18 22:19; Admin Dose 10 UNITS; Start 05/21/18 at 23:00 Aspirin (Halfprin) 81 mg DAILY PO Last administered on 05/26/18 09:32; Admin Dose 81 MG; Start 05/22/18 at 09:00 Fluoxetine HCl (Prozac) 40 mg DAILY PO Last administered on 05/26/18 09:33; Admin Dose 40 MG; Start 05/22/18 at 09:00 Folic Acid (Folic Acid) 1 mg DAILY PO Last administered on 05/26/18 09:32; Admin Dose 1 MG; Start 05/22/18 at 09:00 Gabapentin (Neurontin) 200 mg BID PO Last administered on 05/26/18 22:09; Admin Dose 200 MG; Start 05/21/18 at 22:00 Nifedipine (Procardia Xl) 90 mg DAILY PO Last administered on 05/26/18 09:33; Admin Dose 90 MG; Start 05/22/18 at 09:00 Phenytoin (Dilantin) 300 mg BID PO Last administered on 05/26/18 22:08; Admin Dose 300 MG; Start 05/21/18 at 21:00 Atorvastatin Calcium (Lipitor) 40 mg HS PO Last administered on 05/26/18 22:08; Admin Dose 40 MG; Start 05/21/18 at 22:00 Tamsulosin HCl (Flomax) 0.4 mg HS PO Last administered on 05/26/18at 22:08; Admin Dose 0.4 MG; Start 05/21/18 at 22:00 Miscellaneous Information 1 ea NOTE XX ; Start 05/21/18 at 18:00 Glucose (Glutose) 15 gm Q15M PRN PO DECREASED GLUCOSE; Start 05/21/18 at 18:00 Glucose (Glutose) 22.5 gm Q15M PRN PO DECREASED GLUCOSE; Start 05/21/18 at 18:00 Dextrose (D50w Syringe) 25 ml Q15M PRN IV DECREASED GLUCOSE; Start 05/21/18 at 18:00 Dextrose (D50w Syringe) 50 ml Q15M PRN IV DECREASED GLUCOSE; Start 05/21/18 at 18:00 Glucagon (Glucagen) 1 mg Q15M PRN IM DECREASED GLUCOSE; Start 05/21/18 at 18:00 Glucose (Glutose) 15 gm Q15M PRN BUCCAL DECREASED GLUCOSE; Start 05/21/18 at 18:00 Simethicone (Mylicon) 80 mg TID PRN PO DISTENSION/GAS/BLOATING; Start 05/22/18 at 23:30 Al Hydrox/Mg Hydrox/Simethicone (Mag-Al Plus) 30 ml Q6H PRN PO GASTROINTESTINAL UPSET Last administered on 05/22/18at 23:32; Admin Dose 30 ML; Start 05/22/18 at 23:30 Pantoprazole (Protonix Tab) 40 mg DAILY@06 PO Last administered on 05/26/18at 06:53; Admin Dose 40 MG; Start 05/23/18 at 06:00 Ertapenem 1 gm/ Sodium Chloride 100 ml @ 200 mls/hr Q24H IVPB Last administered on 05/26/18at 17:13; Admin Dose 200 MLS/HR; Start 05/25/18 at 16:30 Sodium Hypochlorite (Dakin'S (Dilute )) 1 applic DAILY IRR Last administered on 05/26/18at 09:32; Admin Dose 1 APPLIC; Start 05/25/18 at 18:00 Carbamazepine (Tegretol Xr) 200 mg Q12 PO Last administered on 05/26/18at 22:08; Admin Dose 200 MG; Start 05/26/18 at 09:00 Insulin Aspart (Novolog Insulin Pen) NOVOLOG *MILD* ALGORI... AC MEALS AND BEDTIME SC ; Start 05/27/18 at 17:35 Heparin Sodium (Porcine) (Heparin (5000 Units/1ml)) 5,000 unit Q12 SC ; Start 05/27/18 at 21:00 BEVERLY DUBON May 27, 2018 15:21
[2018-05-27] MEDS ORDERED: NA POLYST SULFON 15 GM/60 ML BTL PO ONE (15:30)
[2018-05-27] MEDS ORDERED: MAGNESIUM SULFATE 1 GM/D5W 100 ML IVPB ONE (15:30)
[2018-05-27] MEDS: SOD CHLORIDE 0.45% 1,000 ML IV SCH (16:04)
[2018-05-27] MEDS: ERTAPENEM SODIUM 1 GM in SOD CHLORIDE 0.9% 100 ML IVPB SCH (17:38)
--- NOTE | 2018-05-27 18:01 | CONS ---
Assessment/Plan Assessment/Plan Assessment/Plan (Daily) 1. acute kidney injury 2/2 ATN from osteomyelitis 2. 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 Right foot osteomyelitis 4. Anemia of CKD/Anemia of chronic disease 5. H/O DM II, 6. H/o HTN 7. H/o HL 8. acute hyperkalemia Resolved Plan: BUN/Cr- 31/1.59, K 5.4- kayexalate given for today s/p IVF before, Currently on IV abx Ertapenem 1 gram I Vdaily , renally dose all abx and monitor electrolytes Procardia XL 90mg po daily for HTN, IV h hydralazine prn SBP more than 150 mm hg will follow up Consultation Date/Type/Reason Admit Date/Time May 21, 2018 at 17:16 Initial Consult Date 05/22/18 Type of Consult NEPHROLOGY Requesting Provider: HOLLIS BROWN MD Date/Time of Note DATE: 05/27/18 TIME: 18:01 Exam/Review of Systems Exam Vitals Vital Signs Date Temp Pulse Resp B/P (MAP) Pulse Ox O2 O2 Flow FiO2 Time Delivery Rate 05/27/18 98.6 89 18 110/56 99 Room Air 14:34 (74) Intake and Output 05/26/18 05/26/18 05/27/18 1515:00 23:00 07:00 IntakeIntake Total 1200 ml BalanceBalance 1200 ml Results Result Diagram: 05/26/18 0554 05/27/18 0523 Results 24hrs Laboratory Tests Test 05/26/18 22:04 05/27/18 01:56 05/27/18 05:15 05/27/18 05:23 Bedside Glucose 151 215 82 Sodium Level 142 Potassium Level 5.4 H Chloride Level 103 Carbon Dioxide Level 26 Anion Gap 13 Blood Urea Nitrogen 31 H Creatinine 1.59 H Est Glomerular 46 L Filtrat Rate mL/min Glucose Level 79 # Calcium Level 10.1 Phosphorus Level 5.3 H Magnesium Level 1.6 L Test 05/27/18 10:46 05/27/18 12:01 05/27/18 17:18 Bedside Glucose 106 113 116 Medications Medication Current Medications IV Flush (NS 3 ml) 3 ml PER PROTOCOL IV ; Start 05/21/18 at 17:30 Ondansetron HCl (Zofran Inj) 4 mg Q6H PRN IV NAUSEA/VOMITING; Start 05/21/18 at 17:30 Acetaminophen/ Hydrocodone Bitart ([place] (10/325)) 1 tab Q4H PRN PO MODERATE PAIN LEVEL 4-6 Last administered on 05/22/18 09:43; Admin Dose 1 TAB; Start 05/21/18 at 18:00 Morphine Sulfate (morphine) 4 mg Q4H PRN IV BREAKTHROUGH PAIN Last administered on 05/27/18 16:15; Admin Dose 4 MG; Start 05/21/18 at 18:00 Diagnostic Test (Pha) (Accu-Chek) 1 ea 02 XX Last administered on 05/25/18 02:09; Admin Dose 1 EA; Start 05/22/18 at 02:00 Insulin Glargine (Lantus) 10 units DAILY@2000 SC Last administered on 05/26/18 22:19; Admin Dose 10 UNITS; Start 05/21/18 at 23:00 Aspirin (Halfprin) 81 mg DAILY PO Last administered on 05/26/18 09:32; Admin Dose 81 MG; Start 05/22/18 at 09:00 Fluoxetine HCl (Prozac) 40 mg DAILY PO Last administered on 05/26/18 09:33; Admin Dose 40 MG; Start 05/22/18 at 09:00 Folic Acid (Folic Acid) 1 mg DAILY PO Last administered on 05/26/18 09:32; Admin Dose 1 MG; Start 05/22/18 at 09:00 Gabapentin (Neurontin) 200 mg BID PO Last administered on 05/26/18 22:09; Admin Dose 200 MG; Start 05/21/18 at 22:00 Nifedipine (Procardia Xl) 90 mg DAILY PO Last administered on 05/26/18 09:33; Admin Dose 90 MG; Start 05/22/18 at 09:00 Phenytoin (Dilantin) 300 mg BID PO Last administered on 05/26/18 22:08; Admin Dose 300 MG; Start 05/21/18 at 21:00 Atorvastatin Calcium (Lipitor) 40 mg HS PO Last administered on 05/26/18 22:08; Admin Dose 40 MG; Start 05/21/18 at 22:00 Tamsulosin HCl (Flomax) 0.4 mg HS PO Last administered on 05/26/18 22:08; Admin Dose 0.4 MG; Start 05/21/18 at 22:00 Miscellaneous Information 1 ea NOTE XX ; Start 05/21/18 at 18:00 Glucose (Glutose) 15 gm Q15M PRN PO DECREASED GLUCOSE; Start 05/21/18 at 18:00 Glucose (Glutose) 22.5 gm Q15M PRN PO DECREASED GLUCOSE; Start 05/21/18 at 18:00 Dextrose (D50w Syringe) 25 ml Q15M PRN IV DECREASED GLUCOSE; Start 05/21/18 at 18:00 Dextrose (D50w Syringe) 50 ml Q15M PRN IV DECREASED GLUCOSE; Start 05/21/18 at 18:00 Glucagon (Glucagen) 1 mg Q15M PRN IM DECREASED GLUCOSE; Start 05/21/18 at 18:00 Glucose (Glutose) 15 gm Q15M PRN BUCCAL DECREASED GLUCOSE; Start 05/21/18 at 18:00 Simethicone (Mylicon) 80 mg TID PRN PO DISTENSION/GAS/BLOATING; Start 05/22/18 at 23:30 Al Hydrox/Mg Hydrox/Simethicone (Mag-Al Plus) 30 ml Q6H PRN PO GASTROINTESTINAL UPSET Last administered on 05/22/18at 23:32; Admin Dose 30 ML; Start 05/22/18 at 23:30 Pantoprazole (Protonix Tab) 40 mg DAILY@06 PO Last administered on 05/26/18at 06:53; Admin Dose 40 MG; Start 05/23/18 at 06:00 Ertapenem 1 gm/ Sodium Chloride 100 ml @ 200 mls/hr Q24H IVPB Last administered on 05/27/18at 17:38; Admin Dose 200 MLS/HR; Start 05/25/18 at 16:30 Sodium Hypochlorite (Dakin'S (Dilute 40)) 1 applic DAILY IRR Last administered on 05/26/18at 09:32; Admin Dose 1 APPLIC; Start 05/25/18 at 18:00 Carbamazepine (Tegretol Xr) 200 mg Q12 PO Last administered on 05/26/18at 22:08; Admin Dose 200 MG; Start 05/26/18 at 09:00 Insulin Aspart (Novolog Insulin Pen) NOVOLOG *MILD* ALGORI... AC MEALS AND BEDTIME SC ; Start 05/27/18 at 17:35 Heparin Sodium (Porcine) (Heparin (5000 Units/1ml)) 5,000 unit Q12 SC ; Start 05/27/18 at 21:00 Sodium Chloride 1,000 ml @ 75 mls/hr [id number] IV Last administered on 05/27/18at 16:04; Admin Dose 75 MLS/HR; Start 05/27/18 at 15:30 BHARATH NARANJO MD May 27, 2018 18:01
[2018-05-27] MEDS ORDERED: HEPARIN 5,000 UNIT/1 ML VIAL ONE (19:49)
[2018-05-27] MEDS: INSULIN GLARGINE [LANTus] (100 UNITS/ML) SYG SC SCH (20:42)
[2018-05-27] MEDS: ATORVASTATIN 40 MG TAB PO SCH (20:44)
[2018-05-27] MEDS: TAMSULOSIN (SR) 0.4 MG CAP PO SCH (20:45)
[2018-05-28] MEDS: morphine 4 MG/ML VIAL IV PRN ×4 (01:01→14:42)
[2018-05-28 01:48] VITALS: BP 116/65; PULSE 80; RESP 16
[2018-05-28] MEDS: ACCU-CHEK XX SCH (02:00)
[2018-05-28] MEDS: SOD CHLORIDE 0.45% 1,000 ML IV SCH ×2 (05:02→17:15)
[2018-05-28] MEDS: PANTOPRAZOLE (EC) 40 MG TAB PO SCH (05:04)
[2018-05-28] MEDS: INSULIN ASPART [NOVOLOG] 3 ML PEN SC SCH ×2 (07:30→12:10)
[2018-05-28] MEDS: SODIUM HYPOCHLORITE (1/40) 1 APPLIC BTL IRR SCH (07:52)
[2018-05-28 08:00] VITALS: BP 157/82; PULSE 100; RESP 18
[2018-05-28] MEDS: GABAPENTIN 100 MG CAP PO SCH (08:06)
[2018-05-28] MEDS: FOLIC ACID 1 MG TAB PO SCH (08:06)
[2018-05-28] MEDS: PHENYTOIN 100 MG CAP PO SCH (08:08)
[2018-05-28] MEDS: FLUOXETINE 20 MG CAP PO SCH (08:08)
[2018-05-28] MEDS: ASPIRIN (EC) 81 MG TAB PO SCH (08:08)
[2018-05-28] MEDS: HEPARIN 5,000 UNIT/1 ML VIAL SC SCH (08:09)
[2018-05-28] MEDS: NIFEdipine (XL) 90 MG TAB PO SCH (08:11)
[2018-05-28] MEDS: carBAMAZepine (XR) 100 MG TABSR PO SCH (08:18)
--- NOTE | 2018-05-28 12:02 | CONS ---
Assessment/Plan Assessment/Plan Hospital Course (Demo Recall) No acute changes no fevers, looks comfortable Microbiology: Wound culture growing diphtheroids and Citrobacter free 1 day, multidrug-resistant X-ray of the foot revealed bone marrow edema with metatarsal remnants but no nurys bone destructive change to confirm osteomyelitis. Findings could represent either early osteomyelitis versus reactive change secondary to adjacent tissue inflammation. No abscess is seen Antimicrobials: Invanz PHYSICAL EXAMINATION: GENERAL: This is a well-developed, middle-aged man who is in no distress. HEENT: Head atraumatic, normocephalic. NECK: Supple. CHEST: Rise symmetrical. Breath sounds diminished bases HEART: S1, S2. ABDOMEN: Soft, bowel sounds present. EXTREMITIES: Foot has cast ASSESSMENT: 1. Right diabetic foot ulceration questionable osteomyelitis, status post debridement with application of skin allograft 2. Diabetes 2. Diabetic neuropathy 3. Hypertension 4. EtOH abuse PLAN: The patient remains stable, continue abx to complete 4 weeks, dc arrangements Consultation Date/Type/Reason Admit Date/Time May 21, 2018 at 17:16 Initial Consult Date 05/22/18 Type of Consult id Requesting Provider: HOLLIS BROWN MD Date/Time of Note DATE: 05/28/18 TIME: 12:00 Exam/Review of Systems Exam Vitals Vital Signs Date Temp Pulse Resp B/P (MAP) Pulse Ox O2 O2 Flow FiO2 Time Delivery Rate 05/28/18 98.8 100 18 157/82 98 08:00 (107) 05/27/18 Room Air 14:34 Intake and Output 05/27/18 05/27/18 05/28/18 1515:00 23:00 07:00 IntakeIntake Total 780 ml 447 ml 1473 ml OutputOutput Total 5 ml 400 ml BalanceBalance 775 ml 47 ml 1473 ml Results Result Diagram: 05/26/18 0554 05/28/18 0749 Results 24hrs Laboratory Tests Test 05/27/18 12:01 05/27/18 17:18 05/27/18 20:35 05/28/18 02:48 Bedside Glucose 113 116 180 146 Test 05/28/18 07:49 05/28/18 08:05 Sodium Level 139 Potassium Level 5.0 Chloride Level 103 Carbon Dioxide Level 24 Anion Gap 12 Blood Urea Nitrogen 27 H Creatinine 1.36 H Est Glomerular 55 L Filtrat Rate mL/min Glucose Level 125 # Calcium Level 10.0 Bedside Glucose 129 Medications Medication Current Medications IV Flush (NS 3 ml) 3 ml PER PROTOCOL IV ; Start 05/21/18 at 17:30 Ondansetron HCl (Zofran Inj) 4 mg Q6H PRN IV NAUSEA/VOMITING; Start 05/21/18 at 17:30 Acetaminophen/ Hydrocodone Bitart ([place] (10/325)) 1 tab Q4H PRN PO MODERATE PAIN LEVEL 4-6 Last administered on 05/22/18 09:43; Admin Dose 1 TAB; Start 05/21/18 at 18:00 Morphine Sulfate (morphine) 4 mg Q4H PRN IV BREAKTHROUGH PAIN Last administered on 05/28/18 09:14; Admin Dose 4 MG; Start 05/21/18 at 18:00 Diagnostic Test (Pha) (Accu-Chek) 1 ea 02 XX Last administered on 05/28/18 02:00; Admin Dose 1 EA; Start 05/22/18 at 02:00 Insulin Glargine (Lantus) 10 units DAILY@2000 SC Last administered on 05/27/18 20:42; Admin Dose 10 UNITS; Start 05/21/18 at 23:00 Aspirin (Halfprin) 81 mg DAILY PO Last administered on 05/28/18 08:08; Admin Dose 81 MG; Start 05/22/18 at 09:00 Fluoxetine HCl (Prozac) 40 mg DAILY PO Last administered on 05/28/18 08:08; Admin Dose 40 MG; Start 05/22/18 at 09:00 Folic Acid (Folic Acid) 1 mg DAILY PO Last administered on 05/28/18 08:06; Admin Dose 1 MG; Start 05/22/18 at 09:00 Gabapentin (Neurontin) 200 mg BID PO Last administered on 05/28/18 08:06; Admin Dose 200 MG; Start 05/21/18 at 22:00 Nifedipine (Procardia Xl) 90 mg DAILY PO Last administered on 05/28/18 08:11; Admin Dose 90 MG; Start 05/22/18 at 09:00 Phenytoin (Dilantin) 300 mg BID PO Last administered on 05/28/18 08:08; Admin Dose 300 MG; Start 05/21/18 at 21:00 Atorvastatin Calcium (Lipitor) 40 mg HS PO Last administered on 05/27/18 20:44; Admin Dose 40 MG; Start 05/21/18 at 22:00 Tamsulosin HCl (Flomax) 0.4 mg HS PO Last administered on 05/27/18 20:45; Admin Dose 0.4 MG; Start 05/21/18 at 22:00 Miscellaneous Information 1 ea NOTE XX ; Start 05/21/18 at 18:00 Glucose (Glutose) 15 gm Q15M PRN PO DECREASED GLUCOSE; Start 05/21/18 at 18:00 Glucose (Glutose) 22.5 gm Q15M PRN PO DECREASED GLUCOSE; Start 05/21/18 at 18:00 Dextrose (D50w Syringe) 25 ml Q15M PRN IV DECREASED GLUCOSE; Start 05/21/18 at 18:00 Dextrose (D50w Syringe) 50 ml Q15M PRN IV DECREASED GLUCOSE; Start 05/21/18 at 18:00 Glucagon (Glucagen) 1 mg Q15M PRN IM DECREASED GLUCOSE; Start 05/21/18 at 18:00 Glucose (Glutose) 15 gm Q15M PRN BUCCAL DECREASED GLUCOSE; Start 05/21/18 at 18:00 Simethicone (Mylicon) 80 mg TID PRN PO DISTENSION/GAS/BLOATING; Start 05/22/18 at 23:30 Al Hydrox/Mg Hydrox/Simethicone (Mag-Al Plus) 30 ml Q6H PRN PO GASTROINTESTINAL UPSET Last administered on 05/22/18 23:32; Admin Dose 30 ML; Start 05/22/18 at 23:30 Pantoprazole (Protonix Tab) 40 mg DAILY@06 PO Last administered on 05/28/18 05:04; Admin Dose 40 MG; Start 05/23/18 at 06:00 Ertapenem 1 gm/ Sodium Chloride 100 ml @ 200 mls/hr Q24H IVPB Last administered on 05/27/18 17:38; Admin Dose 200 MLS/HR; Start 05/25/18 at 16:30 Sodium Hypochlorite (Dakin'S (Dilute 40)) 1 applic DAILY IRR Last administer ed on 05/26/18 09:32; Admin Dose 1 APPLIC; Start 05/25/18 at 18:00 Carbamazepine (Tegretol Xr) 200 mg Q12 PO Last administered on 3/28/19at 08:18; Admin Dose 200 MG; Start 05/26/18 at 09:00 Insulin Aspart (Novolog Insulin Pen) NOVOLOG *MILD* ALGORI... AC MEALS AND BEDTIME SC Last administered on 05/27/18 20:38; Admin Dose 1 UNIT; Start 05/27/18 at 17:35 Heparin Sodium (Porcine) (Heparin (5000 Units/1ml)) 5,000 unit Q12 SC Last administered on 05/28/18 08:09; Admin Dose 5,000 UNIT; Start 05/27/18 at 21:00 Sodium Chloride 1,000 ml @ 75 mls/hr [id number] IV Last administered on 05/28/18 05:02; Admin Dose 75 MLS/HR; Start 05/27/18 at 15:30 GABBY HERRERA NP May 28, 2018 12:02
--- NOTE | 2018-05-28 12:05 | CONS ---
Assessment/Plan Assessment/Plan Assessment/Plan (Daily) 1. acute kidney injury 2/2 ATN from osteomyelitis 2. 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 Right foot osteomyelitis 4. Anemia of CKD/Anemia of chronic disease 5. H/O DM II, 6. H/o HTN 7. H/o HL 8. acute hyperkalemia Resolved Plan: BUN/Cr- 27/1.36 other electrolytes stable s/p IVF before, Currently on IV abx Ertapenem 1 gram I Vdaily , renally dose all abx and monitor electrolytes Procardia XL 90mg po daily for HTN, IV h hydralazine prn SBP more than 150 mm hg possible d/c plan today Consultation Date/Type/Reason Admit Date/Time May 21, 2018 at 17:16 Initial Consult Date 05/22/18 Type of Consult NEPHROLOGY Requesting Provider: HOLLIS BROWN MD Date/Time of Note DATE: 05/28/18 TIME: 12:04 Exam/Review of Systems Exam Vitals Vital Signs Date Temp Pulse Resp B/P (MAP) Pulse Ox O2 O2 Flow FiO2 Time Delivery Rate 05/28/18 98.8 100 18 157/82 98 08:00 (107) 05/27/18 Room Air 14:34 Intake and Output 05/27/18 05/27/18 05/28/18 1515:00 23:00 07:00 IntakeIntake Total 780 ml 447 ml 1473 ml OutputOutput Total 5 ml 400 ml BalanceBalance 775 ml 47 ml 1473 ml Results Result Diagram: 05/26/18 0554 05/28/18 0749 Results 24hrs Laboratory Tests Test 05/27/18 17:18 05/27/18 20:35 05/28/18 02:48 05/28/18 07:49 Bedside Glucose 116 180 146 Sodium Level 139 Potassium Level 5.0 Chloride Level 103 Carbon Dioxide Level 24 Anion Gap 12 Blood Urea Nitrogen 27 H Creatinine 1.36 H Est Glomerular 55 L Filtrat Rate mL/min Glucose Level 125 # Calcium Level 10.0 Test 05/28/18 08:05 Bedside Glucose 129 Medications Medication Current Medications IV Flush (NS 3 ml) 3 ml PER PROTOCOL IV ; Start 05/21/18 at 17:30 Ondansetron HCl (Zofran Inj) 4 mg Q6H PRN IV NAUSEA/VOMITING; Start 05/21/18 at 17:30 Acetaminophen/ Hydrocodone Bitart ([place] (10/325)) 1 tab Q4H PRN PO MODERATE PAIN LEVEL 4-6 Last administered on 05/22/18 09:43; Admin Dose 1 TAB; Start 05/21/18 at 18:00 Morphine Sulfate (morphine) 4 mg Q4H PRN IV BREAKTHROUGH PAIN Last administered on 05/28/18 09:14; Admin Dose 4 MG; Start 05/21/18 at 18:00 Diagnostic Test (Pha) (Accu-Chek) 1 ea 02 XX Last administered on 05/28/18 02:00; Admin Dose 1 EA; Start 05/22/18 at 02:00 Insulin Glargine (Lantus) 10 units DAILY@2000 SC Last administered on 05/27/18 20:42; Admin Dose 10 UNITS; Start 05/21/18 at 23:00 Aspirin (Halfprin) 81 mg DAILY PO Last administered on 05/28/18 08:08; Admin Dose 81 MG; Start 05/22/18 at 09:00 Fluoxetine HCl (Prozac) 40 mg DAILY PO Last administered on 05/28/18 08:08; Admin Dose 40 MG; Start 05/22/18 at 09:00 Folic Acid (Folic Acid) 1 mg DAILY PO Last administered on 05/28/18 08:06; Admin Dose 1 MG; Start 05/22/18 at 09:00 Gabapentin (Neurontin) 200 mg BID PO Last administered on 05/28/18 08:06; Admin Dose 200 MG; Start 05/21/18 at 22:00 Nifedipine (Procardia Xl) 90 mg DAILY PO Last administered on 05/28/18 08:11; Admin Dose 90 MG; Start 05/22/18 at 09:00 Phenytoin (Dilantin) 300 mg BID PO Last administered on 05/28/18 08:08; Admin Dose 300 MG; Start 05/21/18 at 21:00 Atorvastatin Calcium (Lipitor) 40 mg HS PO Last administered on 05/27/18 20:44; Admin Dose 40 MG; Start 05/21/18 at 22:00 Tamsulosin HCl (Flomax) 0.4 mg HS PO Last administered on 05/27/18 20:45; Admin Dose 0.4 MG; Start 05/21/18 at 22:00 Miscellaneous Information 1 ea NOTE XX ; Start 05/21/18 at 18:00 Glucose (Glutose) 15 gm Q15M PRN PO DECREASED GLUCOSE; Start 05/21/18 at 18:00 Glucose (Glutose) 22.5 gm Q15M PRN PO DECREASED GLUCOSE; Start 05/21/18 at 18:00 Dextrose (D50w Syringe) 25 ml Q15M PRN IV DECREASED GLUCOSE; Start 05/21/18 at 18:00 Dextrose (D50w Syringe) 50 ml Q15M PRN IV DECREASED GLUCOSE; Start 05/21/18 at 18:00 Glucagon (Glucagen) 1 mg Q15M PRN IM DECREASED GLUCOSE; Start 05/21/18 at 18:00 Glucose (Glutose) 15 gm Q15M PRN BUCCAL DECREASED GLUCOSE; Start 05/21/18 at 18:00 Simethicone (Mylicon) 80 mg TID PRN PO DISTENSION/GAS/BLOATING; Start 05/22/18 at 23:30 Al Hydrox/Mg Hydrox/Simethicone (Mag-Al Plus) 30 ml Q6H PRN PO GASTROINTESTINAL UPSET Last administered on 05/22/18at 23:32; Admin Dose 30 ML; Start 05/22/18 at 23:30 Pantoprazole (Protonix Tab) 40 mg DAILY@06 PO Last administered on 05/28/18at 05:04; Admin Dose 40 MG; Start 05/23/18 at 06:00 Ertapenem 1 gm/ Sodium Chloride 100 ml @ 200 mls/hr Q24H IVPB Last admin istered on 05/27/18at 17:38; Admin Dose 200 MLS/HR; Start 05/25/18 at 16:30 Sodium Hypochlorite (Dakin'S (Dilute 40)) 1 applic DAILY IRR Last administered on 05/26/18at 09:32; Admin Dose 1 APPLIC; Start 05/25/18 at 18:00 Carbamazepine (Tegretol Xr) 200 mg Q12 PO Last administered on 05/28/18at 08:18; Admin Dose 200 MG; Start 05/26/18 at 09:00 Insulin Aspart (Novolog Insulin Pen) NOVOLOG *MILD* ALGORI... AC MEALS AND BEDTIME SC Last administered on 05/27/18at 20:38; Admin Dose 1 UNIT; Start at 17:35 Heparin Sodium (Porcine) (Heparin (5000 Units/1ml)) 5,000 unit Q12 SC Last administered on 05/28/18at 08:09; Admin Dose 5,000 UNIT; Start 05/27/18 at 21:00 Sodium Chloride 1,000 ml @ 75 mls/hr [id number] IV Last administered on 05/28/18at 05:02; Admin Dose 75 MLS/HR; Start 05/27/18 at 15:30 BHARATH NARANJO MD May 28, 2018 12:04
--- NOTE | 2018-05-28 12:06 | PDOCDIS ---
Discharge Instructions CONDITION [id number] Patient Condition: [id number] Stable HOME CARE INSTRUCTIONS: [id number] Diet Instructions: [id number] Low Fat /Cholesterol ACTIVITY: [id number] Activity Restrictions: [id number] Slowly Increase Activity Rest between Activity Avoid heavy lifting FOLLOW UP/APPOINTMENTS Follow-up Plan Please take your medications as prescribed, see your doctor in the clinic in the next 1 week. BEVERLY DUBON May 28, 2018 12:06
[2018-05-28] MEDS ORDERED: ATOR40TA68 PO (12:08)
--- NOTE | 2018-05-28 12:14 | DS ---
Date/Time of Note Date/Time of Note DATE: 05/28/18 TIME: 12:10 Discharge Summary Admission/Discharge Info Admit Date/Time May 21, 2018 at 17:16 Discharge Date/Time Discharge Diagnosis # R foot osteo- No evidence of systemic sepsis. Again status post right foot excisional debridement this admission #HAZEL- -slowly improving #Hyperkalemia -resolved now # Diabetes mellitus type 2-A1c equals 7.5, sugars presently stable # Hypertension # Alcohol abuse- He reports weeks of sobriety -counseled again on cessation # Depression. . Patient Condition: Stable Procedures Date/Time of Note Date/Time of Note DATE: 05/27/18 TIME: 10:48 Operative Report Preoperative Diagnosis Right foot diabetic ulcer Right foot osteomyelitis Hx of right foot TMA DM2 with peripheral neuropathy Postoperative Diagnosis Right foot diabetic ulcer Right foot osteomyelitis Hx of right foot TMA DM2 with peripheral neuropathy Operation/Procedure Performed right foot excisional debridement application of skin allograft application of antibiotic block Hx of Present Illness 52 yo man with history of hypertension, diabetes mellitus type 2, dyslipidemia, seizure disorder, depression, alcoholism, and right foot osteomyelitis referred to the ED by his web project manager for R foot osteomyelitis. He had a prolonged hospitalization at [facility] from 12/03-12/30 for R foot osteomyelitis. After discharge he was doing well, ambulating. He also got sober. Over the past several weeks he's developed worsening pain of the R foot. Takes [place] 10 BID which previously provided good pain relief but recently has not been completely resolving pain. Also with serous and purulent drainage from foot ulcer. Reports waking up with chills and sweats one week ago. In the ED he was afebrile; vitals unremarkable. Labs concerning for HAZEL to 2.11 and K 6.3. Hospital Course Patient was admitted, A1c is found to be 7.5. Patient placed on appropriate insulin regimen and the sugars were controlled for that. Seen by renal, infectious disease, podiatry teams during this hospital stay. Patient found with right foot osteomyelitis. He underwent foot excisional debridement this admission. He was placed on appropriate antibiotics for that. Over the course of his hospital stay his vitals were stable including his temperature. White blood cell count was stable. His renal insufficiency improved as well. He was able to ablate with some assistance, tolerated diet. In addition to the positive osteomyelitis finding, his wound culture was positive for Corynebacterium and Citrobacter species. This appeared to respond well to antibiotic treatment. Patient will be discharged home later today and in improved condition with IV antibiotics for 4 weeks of treatment. See below for full list of discharge medications per Home Meds Active Scripts Atorvastatin* (Atorvastatin*) 40 Mg Tablet, 40 MG PO HS, #30 TAB 4 Refills Prov:BEVERLY DUBON Marcial 05/28/18 Aspirin* (Aspirin* EC) 81 Mg Tablet.dr, 81 MG PO DAILY for 14 Days otc Prov:LISA PABON MD 12/24/17 Reported Medications Hydrocodone/Acetaminophen ([place] 10-325 Tablet) 1 Each Tablet, 1 EACH PO BID, TAB 05/21/18 Hydrochlorothiazide* (Hydrochlorothiazide*) 12.5 Mg Tablet, 12.5 MG PO DAILY, #30 TAB 05/21/18 Tamsulosin Hcl* (Tamsulosin Hcl*) 0.4 Mg Cap.er.24h, 0.4 MG PO HS, CAP 05/21/18 Lactobacillus Acidophilus (Probiotic Acidophilus) 1 Each Tablet, 1 EACH PO DA DAY[place], TAB 05/21/18 Sitagliptin* (Januvia*) 100 Mg Tablet, 100 MG PO DAILY, #30 TAB 05/21/18 Phenytoin* Sodium Extended (Dilantin*) 100 Mg Capsule, 100 MG PO TID, CAP 05/21/18 Thiamine* (Vitamin B-1*) 100 Mg Tablet, 100 MG PO DAILY, TAB 05/21/18 Ferrous Sulfate* (Ferrous Sulfate*) 325 Mg Tabec, 325 MG PO DAILY, TAB 05/21/18 Glipizide* (Glipizide*) 10 Mg Tablet, 10 MG PO AC BREAKFAST, TAB 05/21/18 Insulin Glargine,Hum.rec.anlog (Basaglar Kwikpen U-100) 100 Unit/1 Ml Insuln.pen, 9 UNIT SC QHS, EA 03/02/18 Gabapentin* (Gabapentin*) 100 Mg Capsule, 200 MG PO BID, #180 CAP 03/02/18 Carbamazepine* (Tegretol Xr*) 200 Mg Tab.sr.12h, 200 MG PO Q12, TAB.SA 08/29/17 Folic Acid* (Folic Acid*) 1 Mg Tablet, 1 MG PO DAILY, TAB 08/29/17 Fluoxetine Hcl* (Prozac*) 40 Mg Capsule, 40 MG PO DAILY, CAP 08/29/17 Discontinued Reported Medications Atorvastatin* (Atorvastatin*) Unknown Strength Tablet, 1 TAB PO QHS, #30 TAB 05/21/18 Lisinopril* (Lisinopril*) 40 Mg Tablet, 40 MG PO DAILY, #30 TAB 05/21/18 Amlodipine Besylate* (Amlodipine Besylate*) 10 Mg Tablet, 10 MG PO DAILY, #30 TAB 05/21/18 Hydralazine Hcl* (Hydralazine Hcl*) 10 Mg Tablet, 10 MG PO TID, #90 TAB 05/21/18 Phenytoin* Sodium Extended (Dilantin*) 100 Mg Capsule, 300 MG PO BID, CAP 08/29/17 Multivitamins* (Theragran*) 1 Tab Tab, 1 TAB PO DAILY, TAB 08/29/17 Discontinued Scripts Nifedipine (Procardia Xl) 90 Mg Tab.er.24, 90 MG PO DAILY for 10 Days, #15 TAB 1 Refill Prov:LISA PABON MD 12/26/17 Naproxen* (Naprosyn*) 500 Mg Tablet, 500 MG PO BID PRN for PAIN AND/OR INFLA MMATION, #30 TAB Prov:RYAN RODRÍGUEZ MD 03/02/18 Sulfamethoxazole/Trimethoprim* (Bactrim Ds* Tablet) 1 Each Tablet, 1 TAB PO BID, #20 TAB Prov:RYAN RODRÍGUEZ MD 03/02/18 Cephalexin* (Keflex*) 500 Mg Capsule, 500 MG PO QID for 10 Days, CAP Prov:RYAN RODRÍGUEZ MD 03/02/18 Insulin Aspart* (Novolog Insulin Pen*) 100 Unit/Ml Soln, 5 UNIT SC WITH MEALS for 15 Days, #45 1 Refill Prov:LISA PABON MD 12/24/17 Follow-up Plan Please take your medications as prescribed, see your doctor in the clinic in the next 1 week. Primary Care Provider Not On Staff Doctor Time spent on discharge: > 30 minutes Pending Labs Laboratory Tests Test 05/27/18 17:18 05/27/18 20:35 05/28/18 02:48 05/28/18 07:49 Bedside 116 180 146 Glucose mg/dL (70-220) mg/dL (70-220) mg/dL (70-220) Sodium Level 139 mmol/L (135-14 4) Potassium 5.0 Level mmol/L (3.5-5. 1) Chloride Level 103 mmol/L (97-110 ) Carbon Dioxide 24 Level mmol/L (21-31) Anion Gap 12 (5-13) Blood Urea 27 Nitrogen mg/dl (7-20) Creatinine 1.36 mg/dl (0.61-1. 24) Est Glomerular 55 Filtrat mL/min (>60) Rate mL/min Glucose Level 125 mg/dl (70-220) Calcium Level 10.0 mg/dl (8.4-10. 2) Test 05/28/18 08:05 Bedside 129 Glucose mg/dL (70-220) BEVERLY DUBON 28, 2019 12:14
[2018-05-28] MEDS ORDERED: LIDOCAINE 1% (MPF) 5 ML VIAL SC ONE (12:30)
[2018-05-28 14:00] VITALS: BP 145/68; PULSE 94; RESP 18
[2018-05-28] MEDS: ERTAPENEM SODIUM 1 GM in SOD CHLORIDE 0.9% 100 ML IVPB SCH (17:20)
== END 2018-05-28 18:30 | disposition home health service (06) | DRG 623 ==
LOC: E/R 12:57 → 6WM 17:16 → EDBEDREQSVC 21:00 → PP2 05-23 19:55
PROVIDERS: ADMIT Internal Medicine; ATTEND Hospitalist
PROC: 0JBQ0ZZ Excision of Right Foot Subcutaneous Tissue and Fascia, Open Approach (ICD-10-PCS; 2018-05-22)
PROC: 0HRMXK3 Replacement of Right Foot Skin with Nonautologous Tissue Substitute, Full Thickness, External Approach (ICD-10-PCS; 2018-05-27)
PROC: 0YHM0YZ Insertion of Other Device into Right Foot, Open Approach (ICD-10-PCS; 2018-05-27)
PROC: 0JBQ0ZZ Excision of Right Foot Subcutaneous Tissue and Fascia, Open Approach (ICD-10-PCS; principal; 2018-05-27 09:00)
DX: E11.621 Type 2 diabetes mellitus with foot ulcer (principal); M86.8X7 Other osteomyelitis, ankle and foot; E11.69 Type 2 diabetes mellitus with other specified complication; N17.0 Acute kidney failure with tubular necrosis; E11.22 Type 2 diabetes mellitus with diabetic chronic kidney disease; E11.42 Type 2 diabetes mellitus with diabetic polyneuropathy; E11.21 Type 2 diabetes mellitus with diabetic nephropathy; E87.5 Hyperkalemia; N18.3 Chronic kidney disease, stage 3 (moderate); L97.519 Non-pressure chronic ulcer of other part of right foot with unspecified severity; I12.9 Hypertensive chronic kidney disease with stage 1 through stage 4 chronic kidney disease, or unspecified chronic kidney disease; E78.5 Hyperlipidemia, unspecified; G40.909 Epilepsy, unspecified, not intractable, without status epilepticus; F32.9 Major depressive disorder, single episode, unspecified; F10.20 Alcohol dependence, uncomplicated; D63.1 Anemia in chronic kidney disease; B96.89 Other specified bacterial agents as the cause of diseases classified elsewhere; Z79.4 Long term (current) use of insulin; Z79.82 Long term (current) use of aspirin; Z89.421 Acquired absence of other right toe(s); Z87.891 Personal history of nicotine dependence
CPT/HCPCS: 36415; 36569; 71045; 73630; 73718; 76937; 80048; 80053; 80061; 80202; 82962; 83036; 83735; 84100; 84443; 85025; 85610; 85730; 87040; 87070; 87081; 93005; 93922; 94644; 96365; 96375; C1713; J0610; J0692; J1335; J1644; J1815; J2250; J2270; J2370; J3010; J3370; J3475; J7030; J7040; J7050

== ENCOUNTER 2018-05-31 11:10 | Emergency (ER) | payer OTHER ==
[~2018-05-31] VITALS: Ht 167.6 cm; Wt 77.3 kg
[~2018-05-31 11:10] MED LIST changes: +ATOR40TA68 PO; -CEPH-443 PO; +FER325 PO; +GLIP10TA14 PO; +HYDR-3980 PO; +HYDR12.58 PO; +LACT1TAB25 PO; -MULTI PO; -NAPR-985 PO; -NIFE90TA PO; -NOVO3I SC; +SITA100T11 PO; -SULF1TAB31 PO; +TAMS0.4C2 PO; +THIA100T56 PO
[2018-05-31 11:18] VITALS: Ht 167.6 cm; Wt 77.3 kg
[2018-05-31] MEDS ORDERED: ASPI-817 PO (11:35)
[2018-05-31] MEDS ORDERED: morphine 4 MG/ML VIAL IV STA (12:27)
--- NOTE | 2018-05-31 13:42 | ERD ---
ER Documentation Chief Complaint Chief Complaint R39 fr home, foot pain s/p surgery last week. HPI This is a 53-year-old male with a past medical history of hypertension, hyperlipidemia, diabetes, chronic alcohol abuse, cerebral aneurysm, seizures, bilateral diabetic foot ulcers status post multiple previous partial toe and foot amputations including a recent amputation occurring 4 days ago who is now presenting with severe right leg pain since the surgery. The surgery was performed by Dr. Laureano. The patient cannot explain what happened and the surgery. He was given a PICC line for IV antibiotics at home. The patient has a home health nurse who is helping to coordinate his care. The patient reports that he had leftover [place]'s, so he had been taking them, but he ran out of them 2 days ago and has been in significant pain since then. The patient denies feeling sick recently. The patient denies fever or chills. The patient has had no headache or vision changes. The patient does not endorse neck or back pain. The patient denies lightheadedness or dizziness. The patient has had no chest pain or trouble breathing. The patient denies nausea or vomiting. The patient denies abdominal pain. The patient denies changes to bowel movements or urination. The patient has had no focal deficits. The patient has had no weakness or numbness or tingling to the face or extremities. ROS All systems reviewed and are negative except as per history of present illness. Medications Home Meds Active Scripts Atorvastatin* (Atorvastatin*) 40 Mg Tablet, 40 MG PO HS, #30 TAB 4 Refills Prov:BEVERLY DUBON S. 05/28/18 Reported Medications Aspirin* (Aspirin* EC) 81 Mg Tablet.dr, 81 MG PO DAILY, TAB 05/31/18 Hydrocodone/Acetaminophen ([place] 10-325 Tablet) 1 Each Tablet, 1 EACH PO BID, TAB 05/21/18 Hydrochlorothiazide* (Hydrochlorothiazide*) 12.5 Mg Tablet, 12.5 MG PO DAILY, #30 TAB 05/21/18 Tamsulosin Hcl* (Tamsulosin Hcl*) 0.4 Mg Cap.er.24h, 0.4 MG PO HS, CAP 05/21/18 Lactobacillus Acidophilus (Probiotic Acidophilus) 1 Each Tablet, 1 EACH PO DAILY, TAB 05/21/18 Sitagliptin* (Januvia*) 100 Mg Tablet, 100 MG PO DAILY, #30 TAB 05/21/18 Phenytoin* Sodium Extended (Dilantin*) 100 Mg Capsule, 100 MG PO TID, CAP 05/21/18 Thiamine* (Vitamin B-1*) 100 Mg Tablet, 100 MG PO DAILY, TAB 05/21/18 Ferrous Sulfate* (Ferrous Sulfate*) 325 Mg Tabec, 325 MG PO DAILY, TAB 05/21/18 Glipizide* (Glipizide*) 10 Mg Tablet, 10 MG PO AC BREAKFAST, TAB 05/21/18 Insulin Glargine,Hum.rec.anlog (Basaglar Kwikpen U-100) 100 Unit/1 Ml Insuln.pen, 9 UNIT SC QHS, EA 03/02/18 Gabapentin* (Gabapentin*) 100 Mg Capsule, 200 MG PO BID, #180 CAP 03/02/18 Carbamazepine* (Tegretol Xr*) 200 Mg Tab.sr.12h, 200 MG PO Q12, TAB.SA 08/29/17 Folic Acid* (Folic Acid*) 1 Mg Tablet, 1 MG PO DAILY, TAB 08/29/17 Fluoxetine Hcl* (Prozac*) 40 Mg Capsule, 40 MG PO DAILY, CAP 08/29/17 Discontinued Reported Medications Atorvastatin* (Atorvastatin*) Unknown Strength Tablet, 1 TAB PO QHS, #30 TAB 05/21/18 Lisinopril* (Lisinopril*) 40 Mg Tablet, 40 MG PO DAILY, #30 TAB 05/21/18 Amlodipine Besylate* (Amlodipine Besylate*) 10 Mg Tablet, 10 MG PO DAILY, #30 TAB 05/21/18 Hydralazine Hcl* (Hydralazine Hcl*) 10 Mg Tablet, 10 MG PO TID, #90 TAB 05/21/18 Discontinued Scripts Aspirin* (Aspirin* EC) 81 Mg Tablet.dr, 81 MG PO DAILY for 14 Days otc Prov:LISA PABON MD 12/24/17 Nifedipine (Procardia Xl) 90 Mg Tab.er.24, 90 MG PO DAILY for 10 Days, #15 TAB 1 Refill Prov:LISA PABON MD 12/26/17 Allergies Allergies: Coded Allergies: mushroom (Verified Allergy, Severe, 05/31/18) swollen throat, No Known Drug Allergy (Verified Allergy, Unknown, 05/31/18) PMhx/Soc History of Surgery: Yes (R knee Sx, L foot 2nd toe amp, R foot amp, back abscess SX) Anesthesia Reaction: No Hx Neurological Disorder: Yes (Seizures, headaches, aneurysm) Hx Respiratory Disorders: No Hx Cardiac Disorders: Yes (HTN, hyperlipidemia) Hx Psychiatric Problems: Yes (depression) Hx Miscellaneous Medical Probl: Yes (falls, alcoholism) Hx Alcohol Use: Yes (etoh) Hx Substance Use: Yes (h/o cocaine) Hx Tobacco Use: No Smoking Status: Unknown if ever smoked FmHx Family History: diabetes Physical Exam Vitals Vital Signs Date Temp Pulse Resp B/P (MAP) Pulse Ox O2 O2 Flow FiO2 Time Delivery Rate 05/31/18 97.8 88 18 122/64 98 11:18 (83) Physical Exam Const: No apparent distress, well-developed, well-nourished, disheveled. Head: Normocephalic, Atraumatic Eyes: Normal Conjunctiva. Extraocular movements intact. ENT: Normal External Ears, Nose and Mouth. Neck: Full range of motion. No meningismus. Resp: Clear to auscultation bilaterally, No wheezes, rales or rhonchi Cardio: Regular rate and rhythm. No murmurs, rubs or gallops Abd: Soft, non tender, non distended. Normal bowel sounds Skin: No petechiae or rashes Ext: No cyanosis, or edema. PICC line placed in the right arm. Cast to right foot, broken down and dirty from being walked on. Neur: Awake and alert, oriented 4. Cranial nerves intact. No facial droop. Normal strength, sensation and coordination. Psych: Normal Mood and Affect Result Diagram: 05/31/18 1145 Results 24 hrs Laboratory Tests Test 05/31/18 11:45 White Blood Count 7.2 10^3/ul Red Blood Count 3.03 10^6/ul Hemoglobin 8.5 g/dl Hematocrit 26.9 % Mean Corpuscular Volume 88.8 fl Mean Corpuscular Hemoglobin 28.1 pg Mean Corpuscular Hemoglobin Concent 31.6 g/dl Red Cell Distribution Width 13.2 % Platelet Count 361 10^3/UL Mean Platelet Volume 9.7 fl Immature Granulocytes % 0.400 % Neutrophils % 74.5 % Lymphocytes % 13.1 % Monocytes % 7.2 % Eosinophils % 4.2 % Basophils % 0.6 % Nucleated Red Blood Cells % 0.0 /100WBC Immature Granulocytes # 0.030 10^3/ul Neutrophils # 5.4 10^3/ul Lymphocytes # 0.9 10^3/ul Monocytes # 0.5 10^3/ul Eosinophils # 0.3 10^3/ul Basophils # 0.0 10^3/ul Nucleated Red Blood Cells # 0.0 10^3/ul Current Medications Medications Dose Sig/Nidia Start Time Status Last (Trade) Ordered Route PRN Stop Time Admin Dose Reason Admin Morphine 4 mg ONCE STAT 05/31/18 DC 05/31/18 Sulfate IV 12:27 12:49 (morphine) 05/31/18 12:28 Procedures/MDM MDM The patient's presentation warrants further investigation. Previous medical records, if available, were reviewed. LABS The patient's laboratory testing was obtained and reviewed. No emergent treatment was required unless described below. CBC: No E/o systemic infection or thrombocytopenia. Normocytic anemia, nonemergent. TREATMENT/DISPOSITION CBC was completed to evaluate for the possibility of an infection. The patient is afebrile with normal vital signs. He has no leukocytosis. I have low suspicion for a systemic infection. An ESR and CRP was not sent off, as it is expected to be elevated due to the recent podiatry surgery that he had. I called the on-call cost specialist for Dr. Laureano. After discussion of the case, Dr. Shannon instructed as to remove the cast for comfort and place the patient in a walking boot. The cast was carefully removed so as not to disrupt the graft that had been placed by Dr. Laureano. The cast and the bandages were dirty and bloody secondary to the patient walking on his cast for the last sev eral days. Unfortunately, the graft was obliterated due to the patient's noncompliance. The antibiotic block remained in place and the Xeroform gauze was replaced and the wound was re-bandaged. As I did not want the patient walking, the patient was instead splinted instead of being put in a walking boot. The patient will be offered crutches from the emergency department. I strongly recommended that the patient stop walking on his foot. The patient expressed understanding that continued noncompliance could lead to worsening ulceration, infection and ultimately need for additional amputation. The patient was treated with morphine in the emergency department for pain control. I had intended to prescribe the patient opiate medication to help with his pain control. However, after accessing the [employer] database, the patient was prescribed a 30-day supply of [place] on May 04 that was also refilled during his most recent admission to the hospital. Given that the patient has been taking more of his opiate medication that he is supposed to, I do not feel comfortable prescribing the patient opiates from the emergency department. Splint Note Type: Sugar Tong and posterior short leg Location: Right lower extremity Indication: Postoperative, needs to be nonambulatory Assessment: Neurovascularly intact post splint placement with good fit. DISCHARGE Upon reevaluation of the patient, symptoms have improved. No emergent diagnoses were identified. At this time, I feel that the patient stable for discharge. The patient was instructed to follow-up with a primary care physician in 1-3 days. The patient understands the need to follow-up with the cost specialist as well. The patient will be given strict precautions with which to return to the emergency department. Prescriptions: None Disclaimer: Inadvertent spelling and grammatical errors are likely due to EHR/dictation software use and do not reflect on the overall quality of patient care. Note that the electronic time recorded on this note does not necessarily reflect the actual time of the patient encounter. Departure Diagnosis: Primary Impression: Diabetic foot ulcer Diabetic foot ulcer location: unspecified part of foot Diabetes mellitus type: other specified (including VALERIA) Laterality: right Non-pressure ulcer stage: unspecified non-pressure ulcer stage Qualified Codes: E13.621 - Other specified diabetes mellitus with foot ulcer; L97.519 - Non-pressure chronic ulcer of other part of right foot with unspecified severity Additional Impressions: Unilateral amputation of right foot Encounter type: subsequent encounter Qualified Codes: S98.911D - Complete traumatic amputation of right foot, level unspecified, subsequent encounter Right foot pain Condition: GIGI Meneses MD May 31, 2018 13:32
[2018-05-31 13:45] VITALS: BP 111/83; PULSE 77; RESP 16
== END 2018-05-31 14:02 | disposition home or self-care (01) ==
LOC: E/R 11:10
DX: E13.621 Other specified diabetes mellitus with foot ulcer (principal); I10 Essential (primary) hypertension; L97.519 Non-pressure chronic ulcer of other part of right foot with unspecified severity; S98.911D Complete traumatic amputation of right foot, level unspecified, subsequent encounter; X58.XXXD Exposure to other specified factors, subsequent encounter; Y92.9 Unspecified place or not applicable; Z79.4 Long term (current) use of insulin; Z79.82 Long term (current) use of aspirin
CPT/HCPCS: 29515; 36415; 85025; 96374; J2270; Z7502

== ENCOUNTER 2018-06-01 12:52 | Emergency (ER) | payer OTHER ==
[~2018-06-01] VITALS: Ht 170.2 cm; Wt 76.3 kg
[2018-06-01 12:58] VITALS: Ht 170.2 cm; Wt 76.3 kg
--- NOTE | 2018-06-01 13:48 | ERD ---
ER Documentation Chief Complaint Chief Complaint rt foot surgery for diabetic ulcer , sent by pmd for recheck HPI The patient is a 53-year-old male, presenting to the ER from his primary care physician office for wound check. He had right foot debridement by drupal php developer Dr Laureano on 05/21/18, skin graft and antibiotic block. He had been walking on his foot; was seen in the ER yesterday. The cast was removed and he was put on the splint. He went to see his doctor today who referred him to the ER for wound check. He denies fever, chills, neck pain, chest pain, dyspnea, abdominal pain, vomiting. Past medical history: Epilepsy, hypertension, dyslipidemia, history of right foot ulcer mellitus, peripheral neuropathy, depression ROS All systems reviewed and are negative except as per history of present illness. Medications Home Meds Active Scripts Atorvastatin* (Atorvastatin*) 40 Mg Tablet, 40 MG PO HS, #30 TAB 4 Refills Prov:BEVERLY DUBON S. 05/28/18 Reported Medications Aspirin* (Aspirin* EC) 81 Mg Tablet.dr, 81 MG PO DAILY, TAB 05/31/18 Hydrocodone/Acetaminophen ([place] 10-325 Tablet) 1 Each Tablet, 1 EACH PO BID, TAB 05/21/18 Hydrochlorothiazide* (Hydrochlorothiazide*) 12.5 Mg Tablet, 12.5 MG PO DAILY, #30 TAB 05/21/18 Tamsulosin Hcl* (Tamsulosin Hcl*) 0.4 Mg Cap.er.24h, 0.4 MG PO HS, CAP 05/21/18 Lactobacillus Acidophilus (Probiotic Acidophilus) 1 Each Tablet, 1 EACH PO DAILY, TAB 05/21/18 Sitagliptin* (Januvia*) 100 Mg Tablet, 100 MG PO DAILY, #30 TAB 05/21/18 Phenytoin* Sodium Extended (Dilantin*) 100 Mg Capsule, 100 MG PO TID, CAP 05/21/18 Thiamine* (Vitamin B-1*) 100 Mg Tablet, 100 MG PO DAILY, TAB 05/21/18 Ferrous Sulfate* (Ferrous Sulfate*) 325 Mg Tabec, 325 MG PO DAILY, TAB 05/21/18 Glipizide* (Glipizide*) 10 Mg Tablet, 10 MG PO AC BREAKFAST, TAB 05/21/18 Insulin Glargine,Hum.rec.anlog (Basaglar Kwikpen U-100) 100 Unit/1 Ml Insuln.pen, 9 UNIT SC QHS, EA 03/02/18 Gabapentin* (Gabapentin*) 100 Mg Capsule, 200 MG PO BID, #180 CAP 03/02/18 Carbamazepine* (Tegretol Xr*) 200 Mg Tab.sr.12h, 200 MG PO Q12, TAB.SA 08/29/17 Folic Acid* (Folic Acid*) 1 Mg Tablet, 1 MG PO DAILY, TAB 08/29/17 Fluoxetine Hcl* (Prozac*) 40 Mg Capsule, 40 MG PO DAILY, CAP 08/29/17 Discontinued Reported Medications Atorvastatin* (Atorvastatin*) Unknown Strength Tablet, 1 TAB PO QHS, #30 TAB 05/21/18 Lisinopril* (Lisinopril*) 40 Mg Tablet, 40 MG PO DAILY, #30 TAB 05/21/18 Amlodipine Besylate* (Amlodipine Besylate*) 10 Mg Tablet, 10 MG PO DAILY, #30 TAB 05/21/18 Hydralazine Hcl* (Hydralazine Hcl*) 10 Mg Tablet, 10 MG PO TID, #90 TAB 05/21/18 Discontinued Scripts Aspirin* (Aspirin* EC) 81 Mg Tablet.dr, 81 MG PO DAILY for 14 Days otc Prov:LISA PABON MD 12/24/17 Nifedipine (Procardia Xl) 90 Mg Tab.er.24, 90 MG PO DAILY for 10 Days, #15 TAB 1 Refill Prov:LISA PABON MD 12/26/17 Allergies Allergies: Coded Allergies: mushroom (Verified Allergy, Severe, 06/01/18) swollen throat, No Known Drug Allergy (Verified Allergy, Unknown, 06/01/18) PMhx/Soc History of Surgery: Yes (R knee Sx, L foot 2nd toe amp, R foot amp, back abscess SX) Anesthesia Reaction: No Hx Neurological Disorder: Yes (Seizures, headaches, aneurysm) Hx Respiratory Disorders: No Hx Cardiac Disorders: Yes (HTN, hyperlipidemia) Hx Psychiatric Problems: Yes (depression) Hx Miscellaneous Medical Probl: Yes (falls, alcoholism) Hx Alcohol Use: Yes (etoh) Hx Substance Use: Yes (h/o cocaine) Hx Tobacco Use: No Physical Exam Vitals Vital Signs Date Temp Pulse Resp B/P (MAP) Pulse Ox O2 O2 Flow FiO2 Time Delivery Rate 06/01/18 98.3 95 16 137/72 98 Room Air 15:02 (93) 06/01/18 98.1 98 18 146/69 97 12:58 (94) Physical Exam Const: No acute distress. Head: Atraumatic. Eyes: Normal Conjunctiva. ENT: Normal External Ears, Nose and Mouth. Neck: Full range of motion. No meningismus. Resp: Clear to auscultation bilaterally. Cardio: Regular rate and rhythm. Abd: Soft, non distended, normal bowel sounds, non tender. Skin: No petechiae or rashes. Back: No midline or flank tenderness. Ext: No cyanosis, or edema. Right plantar forefoot with minimal erythema, no discharge, no calf tenderness Neur: Awake and alert. No focal deficit Psych: Normal Mood and Affect. Procedures/MDM MEDICAL MAKING DECISION: The patient is a 53-year-old male, presenting with acute postoperative pain, is above outpatient follow-up Consultation: I discussed the patient with his drupal php developer who recommended discharge and would see him in the office in 2 days The differential diagnoses considered include but are not limited to cellulitis, abscess, recurrent cellulitis, DVT Departure Diagnosis: Primary Impression: Postoperative pain Condition: Good Comments I discussed the findings with the patient. I advised the patient to follow-up with the drupal php developer in about 2 days, sooner if needed and return if any concern. Disclaimer: Inadvertent spelling and grammatical errors are likely due to EHR/dictation software use and do not reflect on the overall quality of patient care. Also, please note that the electronic time recorded on this note does not necessarily reflect the actual time of the patient encounter. ELIAZAR MCGRAW MD Jun 01, 2018 13:48
[2018-06-01 15:02] VITALS: BP 137/72; PULSE 95; RESP 16
== END 2018-06-01 15:11 | disposition home or self-care (01) ==
LOC: E/R 12:52
DX: G89.18 Other acute postprocedural pain (principal); I10 Essential (primary) hypertension; E11.9 Type 2 diabetes mellitus without complications; Z79.4 Long term (current) use of insulin; Z79.82 Long term (current) use of aspirin
CPT/HCPCS: 99282

== ENCOUNTER 2018-06-15 10:22 | Inpatient (IN) | payer OTHER ==
[~2018-06-15] VITALS: Ht 170.2 cm; Wt 76.1 kg
[2018-06-15] MEDS ORDERED: ONDANSETRON 4 MG INJ IV STA (10:59)
[2018-06-15] MEDS ORDERED: HYDROmorphONE 1 MG/ML SYG IV STA (10:59)
[2018-06-15] MEDS ORDERED: SOD CHLORIDE 0.9% 1,000 ML IV STA (10:59)
--- NOTE | 2018-06-15 11:15 | ERD ---
ER Documentation Chief Complaint Chief Complaint PROGRESSIVE WEAKNESS FOR 2WKS AND FREQUENT FALLS AND IMPAIRED GAIT HPI This is a 53-year-old male who had right lower extremity infection he is currently getting IV antibiotics via right upper extremity PICC line. He says over the past couple of days he is progressively getting more weak. He says his appetite has been fluctuating and he feels overall malaise and weakness. He lyubov d he fell yesterday but was not syncopal before after the fall. He says he is just weak and loses his balance. He also fell just prior to arrival attempting to get into a car. He fell backwards landing onto bicycles that were laying on the ground. He is complaining of a occipital headache where he hit his head where he had no loss of consciousness however also complaining of some low back pain. No recent abdominal pain vomiting diarrhea nausea no chest pain shortness of breath no cough no dysuria ROS All systems reviewed and are negative except as per history of present illness. Medications Home Meds Active Scripts Atorvastatin* (Atorvastatin*) 40 Mg Tablet, 40 MG PO HS, #30 TAB 4 Refills Prov:LINGBEVERLY S. 05/28/18 Reported Medications Aspirin* (Aspirin* EC) 81 Mg Tablet.dr, 81 MG PO DAILY, TAB 05/31/18 Hydrocodone/Acetaminophen ([place] 10-325 Tablet) 1 Each Tablet, 1 EACH PO BID, TAB 05/21/18 Hydrochlorothiazide* (Hydrochlorothiazide*) 12.5 Mg Tablet, 12.5 MG PO DAILY, #30 TAB 05/21/18 Tamsulosin Hcl* (Tamsulosin Hcl*) 0.4 Mg Cap.er.24h, 0.4 MG PO HS, CAP 05/21/18 Lactobacillus Acidophilus (Probiotic Acidophilus) 1 Each Tablet, 1 EACH PO DAILY, TAB 05/21/18 Sitagliptin* (Januvia*) 100 Mg Tablet, 100 MG PO DAILY, #30 TAB 05/21/18 Phenytoin* Sodium Extended (Dilantin*) 100 Mg Capsule, 100 MG PO TID, CAP 05/21/18 Thiamine* (Vitamin B-1*) 100 Mg Tablet, 100 MG PO DAILY, TAB 05/21/18 Ferrous Sulfate* (Ferrous Sulfate*) 325 Mg Tabec, 325 MG PO DAILY, TAB 05/21/18 Glipizide* (Glipizide*) 10 Mg Tablet, 10 MG PO AC BREAKFAST, TAB 05/21/18 Insulin Glargine,Hum.rec.anlog (Basaglar Kwikpen U-100) 100 Unit/1 Ml Insuln.pen, 9 UNIT SC QHS, EA 03/02/18 Gabapentin* (Gabapentin*) 100 Mg Capsule, 200 MG PO BID, #180 CAP 03/02/18 Carbamazepine* (Tegretol Xr*) 200 Mg Tab.sr.12h, 200 MG PO Q12, TAB.SA 08/29/17 Folic Acid* (Folic Acid*) 1 Mg Tablet, 1 MG PO DAILY, TAB 08/29/17 Fluoxetine Hcl* (Prozac*) 40 Mg Capsule, 40 MG PO DAILY, CAP 08/29/17 Allergies Allergies: Coded Allergies: mushroom (Verified Allergy, Severe, 06/15/18) swollen throat, No Known Drug Allergy (Verified Allergy, Unknown, 06/15/18) PMhx/Soc History of Surgery: Yes (R knee Sx, L foot 2nd toe amp, R foot amp, back abscess SX) Anesthesia Reaction: No Hx Neurological Disorder: Yes (Seizures, headaches, aneurysm) Hx Respiratory Disorders: No Hx Cardiac Disorders: Yes (HTN, hyperlipidemia) Hx Psychiatric Problems: Yes (depression) Hx Miscellaneous Medical Probl: Yes (falls, alcoholism, NON-COMPLIANT DIABETIC) Hx Alcohol Use: Yes (ETOH ABUSE) Hx Substance Use: Yes (h/o cocaine) Hx Tobacco Use: No FmHx Family History: No coronary disease Physical Exam Vitals Vital Signs Date Temp Pulse Resp B/P (MAP) Pulse Ox O2 O2 Flow FiO2 Time Delivery Rate 06/15/18 98.1 94 18 120/75 94 10:26 (90) Physical Exam Const: Well-developed, well-nourished Head: Atraumatic, normocephalic Eyes: Normal Conjunctiva, PERRLA, EOMI, normal sclera, no nystagmus ENT: Normal External Ears, Nose and Mouth, moist mucus membranes. Neck: Full range of motion. No meningismus, no lymphadenopathy. Resp: Clear to auscultation bilaterally, no wheezing, rhonchi, rales Cardio: Regular rate and rhythm, no murmurs, S1 S2 present Abd: Soft, non tender x 4, non distended. Normal bowel sounds, no guarding or rebound, no pulsitile abdominal masses or bruits Skin: No petechiae or rashes, no ecchymosis , no maculopapular rash Back: Moderate to severe tenderness at the lower thoracic upper lumbar region Ext: No cyanosis, or edema, FROM x 4, normal inspection, neurovascularly intact x 4, right upper extremity PICC line is intact, right lower extremity has a Orth O boot Neur: Awake and alert, STR 5/5 x 4, sensation intact x 4, no focal findings, cerebellum intact Psych: Normal Mood and Affect Result Diagram: 06/15/18 1119 06/15/18 1240 Results 24 hrs Laboratory Tests Test 06/15/18 11:18 06/15/18 11:19 06/15/18 12:40 Urine Color YELLOW Urine Clarity CLEAR Urine pH 5.0 Urine Specific [place] 1.013 Urine Ketones NEGATIVE mg/dL Urine Nitrite NEGATIVE mg/dL Urine Bilirubin NEGATIVE mg/dL Urine Urobilinogen NEGATIVE mg/dL Urine Leukocyte Esterase NEGATIVE Ian/ul Urine Hemoglobin NEGATIVE mg/dL Urine Glucose NEGATIVE mg/dL Urine Total Protein NEGATIVE mg/dl White Blood Count 10.2 10^3/ul Red Blood Count 3.56 10^6/ul Hemoglobin 10.0 g/dl Hematocrit 30.8 % Mean Corpuscular Volume 86.5 fl Mean Corpuscular Hemoglobin 28.1 pg Mean Corpuscular 32.5 g/dl Hemoglobin Concent Red Cell Distribution Width 13.0 % Platelet Count 340 10^3/UL Mean Platelet Volume 10.1 fl Immature Granulocytes % 1.400 % Neutrophils % 81.7 % Lymphocytes % 8.2 % Monocytes % 6.6 % Eosinophils % 1.6 % Basophils % 0.5 % Nucleated Red Blood Cells % 0.0 /100WBC Immature Granulocytes # 0.140 10^3/ul Neutrophils # 8.3 10^3/ul Lymphocytes # 0.8 10^3/ul Monocytes # 0.7 10^3/ul Eosinophils # 0.2 10^3/ul Basophils # 0.1 10^3/ul Nucleated Red Blood Cells # 0.0 10^3/ul Sodium Level 140 mmol/L Potassium Level 6.4 mmol/L 6.2 mmol/L Chloride Level 109 mmol/L Carbon Dioxide Level 21 mmol/L Anion Gap 10 Blood Urea Nitrogen 44 mg/dl Creatinine 2.18 mg/dl Est Glomerular Filtrat 32 mL/min Rate mL/min Glucose Level 141 mg/dl Calcium Level 9.8 mg/dl Total Bilirubin 0.2 mg/dl Direct Bilirubin 0.00 mg/dl Indirect Bilirubin 0.2 mg/dl Aspartate Amino 42 IU/L Transf (AST/SGOT) Alanine 42 IU/L Aminotransferase (ALT/SGPT) Alkaline Phosphatase 148 IU/L Troponin I < 0.012 ng/ml Total Protein 8.5 g/dl Albumin 4.8 g/dl Globulin 3.70 g/dl Albumin/Globulin Ratio 1.29 Current Medications Medications Dose Sig/Nidia Start Time Status Last (Trade) Ordered Route PRN Stop Time Admin Dose Reason Admin Sodium 1,000 ml @ Q1H STAT 06/15/18 DC 06/15/18 Chloride 1,000 mls/hr IV 10:59 11:43 06/15/18 11:58 1 mg ONCE STAT 06/15/18 DC 06/15/18 Hydromorphone IV 10:59 11:43 HCl 06/15/18 11:01 (Dilaudid) Ondansetron 4 mg ONCE STAT 06/15/18 DC 06/15/18 HCl (Zofran IV 10:59 11:43 Inj) 06/15/18 11:01 Sodium 30 gm ONCE STAT 06/15/18 DC Polystyrene PO 13:21 Sulfonate 06/15/18 13:24 (Kayexelate 15 Gm Kit (Powder+Sorbi oziel)) Sodium 50 ml ONCE STAT 06/15/18 DC Bicarbonate IV 13:21 (Na Bicarb 06/15/18 13:24 8.4% Syg) Insulin 10 unit ONCE STAT 06/15/18 DC Human IVP 13:21 Regular 06/15/18 13:24 (Humulin R) Dextrose 50 ml ONCE ONCE 06/15/18 (D50w IV 13:30 Syringe) 06/15/18 13:31 Dextrose ONCE PRN 06/15/18 (D50w IV DECREASED 13:30 Syringe) GLUCOSE Procedures/MDM Ordering MD: EDINSON OHARA DO Location: E/R Room/Bed: PROCEDURE: XR Chest. CLINICAL INDICATION: Trauma TECHNIQUE: Single frontal view of the chest was obtained COMPARISON: SD CR CHEST 05/12/2018; CR CHEST 04/06/2016; CR CHEST 07/16/2015 FINDINGS: The heart and mediastinum are within normal limits. No discrete focal consolidation. There is no pleural effusion or pneumothorax. Right PICC tip terminates in the cavoatrial junction Chronic healed fracture of the left posterior lower ribs. IMPRESSION: No acute cardiopulmonary process. RPTAT: QQ Physician Nile Date Time Electronically viewed and signed by cami Russell Physician on 06/15/2018 11:20 rV/ CC: EDINSON OHARA DO [id number] MR #: [id number] DOS: 06/15/18 1059 Ordering MD: EDINSON OHARA DO Location: E/R Room/Bed: PROCEDURE: CT BRAIN WITHOUT CONTRAST CLINICAL INDICATION: Trauma. TECHNIQUE: Transaxial CT examination of the head was performed without intravenous administration of contrast on a User[employer] helical CT scanner. In addition to the brain and bone windows of transaxial images, multiple sagittal and coronal reformatted images were generated for the interpretation. DICOM images are available. Radiation dose: CTDIvol = 39 mGy; total DLP = 634 mGy-cm. One or more of the following dose reduction techniques were used: - Automated exposure control. - Adjustment of the mA and/or kV according to patient size. - Use of iterative reconstruction technique. COMPARISON: CT examination of 05/12/2018. FINDINGS: Evaluation of the supratentorial compartment demonstrates no hemorrhage, cerebral infarction, mass effect, midline shift, or abnormal extra-axial fluid collection. Mild to moderate enlargement of the ventricles and cortical sulci in a pattern of atrophy is mildly atrophic normal for the age. Mild to moderate periventricular and subcortical white matter hypoattenuation density is present, which is most likely due to age related microvascular change. Evaluation of the posterior fossa reveals no hemorrhage, infarction, or mass effect. Mild atrophic change is compatible with the age of patient. The cerebellar tonsils are in normal position relative to the foramen magnum. There is no depressed or vertically oriented skull fracture. Bilateral mastoid air cells and the visualized paranasal sinuses are normally aerated. IMPRESSION: 1. No intracranial hemorrhage, appreciable cerebral contusion, hydrocephalus, or cerebral infarction. 2. Mild to moderate age related microvascular change. 3. No depressed skull fracture. 4. No interval change. RPTAT: EE Physician Hilda Date Time Electronically viewed and signed by Xu Lehman Physician on 06/15/2018 11:34 PH/ CC: EDINSON OHARA DO [id number] MR #: [id number] DOS: 06/15/18 1059 Ordering MD: EDINSON OHARA DO Location: E/R Room/Bed: PROCEDURE: CT L-Spine. CLINICAL INDICATION: Trauma TECHNIQUE: A CT of the lumbar spine was performed on a User[employer] 64-slice CT scanner utilizing high-resolution thin section axial images from the thoracic lumbar junction through the lumbar sacral junction. Sagittal and coronal and multiplanar reformatted images were made.The CTDIvol is 30.17 mGy and the DLP is 1056.51 mGycm. DICOM images are available. One or more of the following dose reduction techniques were utilized: 1.) Automated exposure control 2.) Adjustment of the mA +/- kV according to patient's size 3.) Use of iterative reconstruction technique. COMPARISON: No recent exams available FINDINGS: Acute, mildly displaced compression type fracture involving the superior endplate and predominant left side of T12 vertebral body with less than 25% height loss (sagittal image 51 and axial image 17). No evidence of extension into the posterior elements. No retropulsion or evidence of spinal stenosis. Mild adjacent paravertebral soft tissue swelling. Mild compression deformity is also present at the superior endplate of L1 vertebral body, however this is favored to be chronic with associated moderate size Schmorl's node (sagittal image 51). No evidence of fracture or malalignment in the remainder of the lumbar spine. Small disc bulges and mild facet arthropathy in the lower lumbar spine resulting in mild narrowing of the neural foramen at L4-L5 bilaterally. Mild to moderate calcified arterial atherosclerosis. IMPRESSION: Acute mildly comminuted, mild compression fracture of T12 vertebral body with less than 25% height loss and no evidence of significant retropulsion. Mild compression deformity of L1 vertebral body superior endplate is favored to be chronic with associated endplate Schmorl's node. Acute on chronic injury could be further assessed with MRI if desired. Remainder of the lumbar spine is intact. -- Findings discussed with ordering clinician Dr. Ohara at approximately 11:40 a.m. 06/15/2018. RPTAT:AAJJ Mraylu Hoskins, Physician Date Time Electronically viewed and signed by Marylu Hoskins Physician on 06/15/2018 11:45 RF/ CC: EDINSON OHARA DO [id number] The patient has prerenal azotemia and a bit of worsening to his creatinine from his admission here in May of this year. His potassium is elevated at 6.4 and I have sent off a repeat to verify this if it is elevated I will treat with intravenous insulin, D50 W, sodium bicarb. He has an acute T12 fracture but there is no retropulsion on his CT scan. Will need to admit for IV hydration, potassium correction if needed pain control and may need rehab. The patient's T12 fracture is nonsurgical and just needs a TLSO brace Departure Diagnosis: Primary Impression: T12 compression fracture Additional Impressions: Dehydration Hyperkalemia Condition: Stable EDINSON OHARA DO Jun 15, 2018 11:15
[2018-06-15] MEDS ORDERED: INSULIN REGULAR, HUMAN 100 UNIT/1 ML 3ML VIAL IVP STA (13:21)
[2018-06-15] MEDS ORDERED: SODIUM POLYSTYRENE 15 GM KIT (POWDER + SORBITOL) PO STA (13:21)
[2018-06-15] MEDS ORDERED: NA BICARBONATE 8.4% 50 ML SYG IV STA (13:21)
[2018-06-15] MEDS ORDERED: SOD CHLORIDE 0.9% 1,000 ML IV SCH (13:28)
[2018-06-15] MEDS ORDERED: DEXTROSE 50% 50 ML SYRINGE IV PRN ×3 (13:30→16:30)
[2018-06-15] MEDS ORDERED: DEXTROSE 50% 50 ML SYRINGE IV ONE (13:30)
[2018-06-15] MEDS ORDERED: ACETAMINOPHEN 325 MG TAB PO PRN (13:30)
[2018-06-15] MEDS ORDERED: ONDANSETRON 4 MG INJ IV PRN (13:30)
[2018-06-15] MEDS ORDERED: NA POLYST SULFON 15 GM/60 ML BTL PO STA (14:24)
[2018-06-15 14:53] VITALS: Ht 170.2 cm; Wt 76.1 kg
[2018-06-15 15:15] VITALS: BP 123/62; PULSE 96; RESP 18
[2018-06-15] MEDS ORDERED: NACL 0.9% 3 ML SYG IV SCH (16:00)
[2018-06-15 16:09] VITALS: PULSE 93
--- NOTE | 2018-06-15 16:15 | HP ---
Date/Time of Note Date/Time of Note DATE: 06/15/18 TIME: 15:54 Assessment/Plan VTE Prophylaxis Pharmacological prophylaxis: NA/contraindicated Pharm contraindication: low risk/ambulating Lines/Catheters IV Catheter Type (from Nrsg): PICC Line Central line still needed: Yes Assessment/Plan Assessment/Plan 53 yo man with hypertension, diabetes mellitus type 2, dyslipidemia, seizure disorder, depression, alcoholism, and right foot osteomyelitis who presents with worsening fatigue, fall, lumbar compression fracture, and hyperkalemia #Lumbar compression fracture - Pain control with PO [place] - Peripheral neuro exam intact, no concern for cord compression on physical exam or imaging. - PT #Hyperkalemia - Patient had this same unusual hyperkalemia last admission out of proportion to renal failure - Not on ACEi, ARB, spironolactone, or other potassium-sparing drugs. - Acute medical management with kayexalate - Not associated with EKG changes. - Dr. Hopkins consulted. #Fatigue #Frequent falls - Patient denies loss of consciousness or seizure-like activity. - May be due to chronic hyperkalemia. Will correct and re-evaluate - carbapenem antibiotics may also dizziness and orthostatic hypotension. Patient said these symptoms started around the same time. However the patient is nearing the end of his 4 week course (05/25-06/23) so may be better to just finish the course. - PT as above. #Osteomyelitis - Continue ertapenem (05/25-06/23) #Diabetes - Glargine 10 - Insulin sliding scale - Hold oral meds #Seizure disorder - Continue home phenytoin and carbamazepine DVT: SCDs GI: None Result Diagram: 06/15/18 1119 06/15/18 1240 HPI/ROS Admit Date/Time Admit Date/Time Jun 15, 2018 at 13:29 Hx of Present Illness Mr. Bedolla is a 53 yo man with diabetes and diabetic foot ulcers currently being treated for osteomyelitis who presents after a fall. He was recently hospitalized here at [facility] (05/21 to 05/28) for osteomyelitis. Discharged with PICC and IV ertapenem which he has been receiving. During that hospitalization he also had HAZEL and significant hyperkalemia. Since discharge he reports severe fatigue and anorexia which he attributes to the antibiotics. He often gets dizzy when trying to stand and he has fallen six times since discharge; always associated with weakness or dizziness, never loss of consciousness, never striking head. Hospitalized at [facility] June 01- after a fall. This time, he was climbing up the stairs when he felt very weak; fell backwards, landed on his butt in a sitting position, then leaned back and his R shoulder struck a child's bicycle training wheel, his back landed flat on the concrete. Again no LOC or head strike. Afterwards he noticed severe lower back pain so he came to the hospital. In the ED he was afebrile, vitals unremarkable. Labs concerning for hyperK to 6.4, HAZEL with Cr 2.18. CT L-spine showed T12 compression fracture with 25% height loss. ROS Denies fever, chills, night sweats, weight loss, headache, vision changes, dysphagia, odynophagia, throat pain, dyspnea, cough. He DOES report mild aching chest pain since he fell forward on his chest but no exertional chest pain or pressure-like pain. Denies nausea, vomiting, constipation. He DID have diarrhea yesterday. Denies hematochezia, melena, hematemesis, dysuria, hematuria. PMH/Family/Social Past Medical History hypertension, diabetes mellitus type 2, dyslipidemia, seizure disorder, depression, alcoholism (now sober since early May), and right foot osteomyelitis Medications Current Medications Dextrose (D50w Syringe) ONCE PRN IV DECREASED GLUCOSE; Start 06/15/18 at 13:30 Sodium Chloride 1,000 ml @ 80 mls/hr [id number] IV Last administered on 06/15/18at 15:30; Admin Dose 80 MLS/HR; Start 06/15/18 at 13:28; Stop 06/16/18 at 01:57 Ondansetron HCl (Zofran Inj) 4 mg ER BRIDGE PRN IV NAUSEA/VOMITING; Start 06/15/18 at 13:30; Stop 06/16/18 at 13:29 Acetaminophen (Tylenol Tab) 650 mg ER BRIDGE PRN PO .MILD PAIN 1-3 OR TEMP; Start 06/15/18 at 13:30; Stop 06/16/18 at 13:29 Coded Allergies: mushroom (Verified Allergy, Severe, 06/15/18) swollen throat, No Known Drug Allergy (Verified Allergy, Unknown, 06/15/18) Past Surgical History R foot surgical debridement Past Surgical Hx: other Family History Significant Family History: other Social History Alcohol Use: sober (since early May 2018) Smoking Status: Former smoker Drug Use: none Exam/Review of Systems Vital Signs Vitals Vital Signs Date Temp Pulse Resp B/P (MAP) Pulse Ox O2 O2 Flow FiO2 Time Delivery Rate 06/15/18 98.1 96 18 123/62 94 15:15 (82) 06/15/18 Room Air 14:21 Exam Exam Gen: Fatigued appearing man lying in bed, no acute distress. Eyes: PERRL, no icterus HEENT: Moist mucous membranes, clear oropharynx Neck: Supple, full ROM, nontender Card: Regular rate and rhythm, no murmurs Pulm: Clear to auscultation bilaterally Abd: Slightly distended and tympanic, soft, nontender. Back: Midline spine tenderness around T12-L1. Ext: R foot bandaged. No edema. HOLLIS BROWN MD Jun 15, 2018 16:05
[2018-06-15] MEDS ORDERED: GLUCOSE GEL 15 GRAM TUBE BUCCAL PRN (16:30)
[2018-06-15] MEDS ORDERED: GLUCAGON 1 MG INJ IM PRN (16:30)
[2018-06-15] MEDS ORDERED: GLUCOSE GEL 15 GRAM TUBE PO PRN ×2 (16:30)
[2018-06-15] MEDS: HYDROCODONE/APAP (10/325) TAB PO PRN ×2 (17:29→20:57)
[2018-06-15] MEDS: ERTAPENEM SODIUM 1 GM in SOD CHLORIDE 0.9% 100 ML IVPB SCH (17:37)
[2018-06-15] MEDS: INSULIN ASPART [NOVOLOG] 3 ML PEN SC SCH ×2 (17:37→21:03)
--- NOTE | 2018-06-15 18:00 | CONS ---
Assessment/Plan Assessment/Plan Assessment/Plan (Daily) R foot diabetic ulcer R foot osteomyelitis DM2 with peripheral neuropathy R foot TMA site Lumbar compression fracture Fatigue Plan Discussed with patient that patient would benefit from OR procedure for a wound flap closure VS skin grafting. Patient will need to be non weight bearing to the right lower extremity. Complete PICC line IV abx per ID recommendations. Pain control along with tight glycemic monitoring. Will coordinate with OR and plan for procedure. Consultation Date/Type/Reason Admit Date/Time Jun 15, 2018 at 13:29 Date/Time of Note DATE: 06/15/18 TIME: 17:58 Hx of Present Illness 53 y/o M patient was admitted to the hospital due to dizziness and sustained a fall resulting in a compression fracture of T12 and L1. Patient states he has been on PICC line IV abx. Patient has been maintaining dressing changes and caregiver has been providing assistance. Patient was previously following up in the [facility] wound clinic and had recent debridement with allograft placement. Patient denies signs of infection to his wound site. ROS Negative except for HPI Past Medical History hypertension, diabetes mellitus type 2, dyslipidemia, seizure disorder, depression, alcoholism (now sober since early May), and right foot osteom yelitis Home Meds Active Scripts Atorvastatin* (Atorvastatin*) 40 Mg Tablet, 40 MG PO HS, #30 TAB 4 Refills Prov:LINGBEVERLY Shane. 05/28/18 Reported Medications Aspirin* (Aspirin* EC) 81 Mg Tablet.dr, 81 MG PO DAILY, TAB 05/31/18 Hydrocodone/Acetaminophen ([place] 10-325 Tablet) 1 Each Tablet, 1 EACH PO BID, TAB 05/21/18 Hydrochlorothiazide* (Hydrochlorothiazide*) 12.5 Mg Tablet, 12.5 MG PO DAILY, #30 TAB 05/21/18 Tamsulosin Hcl* (Tamsulosin Hcl*) 0.4 Mg Cap.er.24h, 0.4 MG PO HS, CAP 05/21/18 Lactobacillus Acidophilus (Probiotic Acidophilus) 1 Each Tablet, 1 EACH PO D AILY, TAB 05/21/18 Sitagliptin* (Januvia*) 100 Mg Tablet, 100 MG PO DAILY, #30 TAB 05/21/18 Phenytoin* Sodium Extended (Dilantin*) 100 Mg Capsule, 100 MG PO TID, CAP 05/21/18 Thiamine* (Vitamin B-1*) 100 Mg Tablet, 100 MG PO DAILY, TAB 05/21/18 Ferrous Sulfate* (Ferrous Sulfate*) 325 Mg Tabec, 325 MG PO DAILY, TAB 05/21/18 Glipizide* (Glipizide*) 10 Mg Tablet, 10 MG PO AC BREAKFAST, TAB 05/21/18 Insulin Glargine,Hum.rec.anlog (Basaglar Kwikpen U-100) 100 Unit/1 Ml Insul n.pen, 9 UNIT SC QHS, EA 03/02/18 Gabapentin* (Gabapentin*) 100 Mg Capsule, 200 MG PO BID, #180 CAP 03/02/18 Carbamazepine* (Tegretol Xr*) 200 Mg Tab.sr.12h, 200 MG PO Q12, TAB.SA 08/29/17 Folic Acid* (Folic Acid*) 1 Mg Tablet, 1 MG PO DAILY, TAB 08/29/17 Fluoxetine Hcl* (Prozac*) 40 Mg Capsule, 40 MG PO DAILY, CAP 08/29/17 Medications Current Medications Sodium Chloride 1,000 ml @ 80 mls/hr [id number] IV Last administered on 06/15/18at 15:30; Admin Dose 80 MLS/HR; Start 06/15/18 at 13:28; Stop 06/16/18 at 01:57 IV Flush (NS 3 ml) 3 ml PER PROTOCOL IV ; Start 06/15/18 at 16:00 Heparin Sodium (Porcine) (Heparin (5000 Units/1ml)) 5,000 unit Q8 SC ; Start 06/15/18 at 22:00 Ertapenem 1 gm/ Sodium Chloride 100 ml @ 200 mls/hr Q24H IVPB Last administered on 06/15/18at 17:37; Admin Dose 200 MLS/HR; Start 06/15/18 at 17:00 Acetaminophen/ Hydrocodone Bitart ([place] (10)) 1 tab Q4H PRN PO lower back pain Last administered on 06/15/18at 17:29; Admin Dose 1 TAB; Start 06/15/18 at 16:30 Diagnostic Test (Pha) (Accu-Chek) 1 ea 02 XX ; Start 06/16/18 at 02:00 Insulin Glargine (Lantus) 10 units DAILY@2000 SC ; Start 06/15/18 at 20:00 Insulin Aspart (Novolog Insulin Pen) NOVOLOG *MODERATE* ALGORITHM WITH MEALS BEDTIME SC ; Start 06/15/18 at 17:55 Aspirin (Halfprin) 81 mg DAILY PO ; Start 06/16/18 at 09:00 Atorvastatin Calcium (Lipitor) 40 mg HS PO ; Start 06/15/18 at 21:00 Carbamazepine (Tegretol Xr) 200 mg Q12 PO ; Start 06/15/18 at 21:00 Fluoxetine HCl (Prozac) 40 mg DAILY PO ; Start 06/16/18 at 09:00 Folic Acid (Folic Acid) 1 mg DAILY PO ; Start 06/16/18 at 09:00 Gabapentin (Neurontin) 200 mg BID PO ; Start 06/15/18 at 21:00 Hydrochlorothiazide (Hydrochlorothiazide) 12.5 mg DAILY PO ; Start 06/16/18 at 09:00 Phenytoin (Dilantin) 100 mg TID PO ; Start 06/15/18 at 21:00 Tamsulosin HCl (Flomax) 0.4 mg HS PO ; Start 06/15/18 at 21:00 Thiamine HCl (Vitamin B1) 100 mg DAILY PO ; Start 06/16/18 at 09:00 Miscellaneous Information 1 ea NOTE XX ; Start 06/15/18 at 16:30 Glucose (Glutose) 15 gm Q15M PRN PO DECREASED GLUCOSE; Start 06/15/18 at 16:30 Glucose (Glutose) 22.5 gm Q15M PRN PO DECREASED GLUCOSE; Start 06/15/18 at 16:30 Dextrose (D50w Syringe) 25 ml Q15M PRN IV DECREASED GLUCOSE; Start 06/15/18 at 16:30 Dextrose (D50w Syringe) 50 ml Q15M PRN IV DECREASED GLUCOSE; Start 06/15/18 at 16:30 Glucagon (Glucagen) 1 mg Q15M PRN IM DECREASED GLUCOSE; Start 06/15/18 at 16:30 Glucose (Glutose) 15 gm Q15M PRN BUCCAL DECREASED GLUCOSE; Start 06/15/18 at 16:30 Allergies: Coded Allergies: mushroom (Verified Allergy, Severe, 06/15/18) swollen throat, No Known Drug Allergy (Verified Allergy, Unknown, 06/15/18) Past Surgical History previous foot debridement with application of skin allograft Past Surgical Hx: other Family History Significant Family History: no pertinent family hx Social History Alcohol Use: sober (since early May 2018) Smoking Status: Former smoker Drug Use: none Exam/Review of Systems Exam Vitals Vital Signs Date Temp Pulse Resp B/P (MAP) Pulse Ox O2 O2 Flow FiO2 Time Delivery Rate 06/15/18 93 16:09 06/15/18 98.1 18 123/62 94 15:15 (82) 06/15/18 Room Air 14:21 Exam Palpable pedal pulses Right foot TMA site absent protective sensations Right plantar granular ulcer 2.5 x 2 x 0.2cm, does not probe to bone, no purulence, no proximal streaking Muscle strength 5/5 in all compartments of the foot No pain on palpation to wound site. Left hallux HPK lesion noted. Results Result Diagram: 06/15/18 1119 06/15/18 1240 Results 24hrs Laboratory Tests Test 06/15/18 11:18 06/15/18 11:19 06/15/18 12:40 06/15/18 14:07 Urine Color YELLOW Urine Clarity CLEAR Urine pH 5.0 Urine Specific 1.013 [place] Urine Ketones NEGATIVE Urine Nitrite NEGATIVE Urine Bilirubin NEGATIVE Urine Urobilinogen NEGATIVE Urine Leukocyte NEGATIVE Esterase Urine Hemoglobin NEGATIVE Urine Glucose NEGATIVE Urine Total Protein NEGATIVE White Blood Count 10.2 # Red Blood Count 3.56 L Hemoglobin 10.0 L Hematocrit 30.8 L Mean Corpuscular 86.5 Volume Mean Corpuscular 28.1 L Hemoglobin Mean Corpuscular 32.5 Hemoglobin Concent Red Cell 13.0 Distribution Width Platelet Count 340 Mean Platelet Volume 10.1 Immature 1.400 H Granulocytes % Neutrophils % 81.7 H Lymphocytes % 8.2 L Monocytes % 6.6 Eosinophils % 1.6 Basophils % 0.5 Nucleated Red Blood 0.0 Cells % Immature 0.140 H Granulocytes # Neutrophils # 8.3 H Lymphocytes # 0.8 Monocytes # 0.7 Eosinophils # 0.2 Basophils # 0.1 Nucleated Red Blood 0.0 Cells # Sodium Level 140 Potassium Level 6.4 *H 6.2 *H Chloride Level 109 Carbon Dioxide Level 21 Anion Gap 10 Blood Urea Nitrogen 44 H Creatinine 2.18 H Est Glomerular 32 L Filtrat Rate mL/min Glucose Level 141 Calcium Level 9.8 Total Bilirubin 0.2 Direct Bilirubin 0.00 Indirect Bilirubin 0.2 Aspartate Amino 42 Transf (AST/SGOT) Alanine 42 Aminotransferase (AL T/SGPT) Alkaline Phosphatase 148 H Troponin I < 0.012 Total Protein 8.5 H Albumin 4.8 Globulin 3.70 H Albumin/Globulin 1.29 Ratio Bedside Glucose 97 Test 06/15/18 15:25 06/15/18 15:43 06/15/18 16:12 06/15/18 16:26 Bedside Glucose 44 *L 74 119 129 Test 06/15/18 17:05 Bedside Glucose 140 Medications Medication Current Medications Sodium Chloride 1,000 ml @ 80 mls/hr [id number] IV Last administered on 06/15/18at 15:30; Admin Dose 80 MLS/HR; Start 06/15/18 at 13:28; Stop 06/16/18 at 01:57 IV Flush (NS 3 ml) 3 ml PER PROTOCOL IV ; Start 06/15/18 at 16:00 Heparin Sodium (Porcine) (Heparin (5000 Units/1ml)) 5,000 unit Q8 SC ; Start 06/15/18 at 22:00 Ertapenem 1 gm/ Sodium Chloride 100 ml @ 200 mls/hr Q24H IVPB Last administere d on 06/15/18at 17:37; Admin Dose 200 MLS/HR; Start 06/15/18 at 17:00 Acetaminophen/ Hydrocodone Bitart ([place] (10/325)) 1 tab Q4H PRN PO lower back pain Last administered on 06/15/18at 17:29; Admin Dose 1 TAB; Start 06/15/18 at 16:30 Diagnostic Test (Pha) (Accu-Chek) 1 ea 02 XX ; Start 06/16/18 at 02:00 Insulin Glargine (Lantus) 10 units DAILY@2000 SC ; Start 06/15/18 at 20:00 Insulin Aspart (Novolog Insulin Pen) NOVOLOG *MODERATE* ALGORITHM WITH MEALS BEDTIME SC ; Start 06/15/18 at 17:55 Aspirin (Halfprin) 81 mg DAILY PO ; Start 06/16/18 at 09:00 Atorvastatin Calcium (Lipitor) 40 mg HS PO ; Start 06/15/18 at 21:00 Carbamazepine (Tegretol Xr) 200 mg Q12 PO ; Start 06/15/18 at 21:00 Fluoxetine HCl (Prozac) 40 mg DAILY PO ; Start 06/16/18 at 09:00 Folic Acid (Folic Acid) 1 mg DAILY PO ; Start 06/16/18 at 09:00 Gabapentin (Neurontin) 200 mg BID PO ; Start 06/15/18 at 21:00 Hydrochlorothiazide (Hydrochlorothiazide) 12.5 mg DAILY PO ; Start 06/16/18 at 09:00 Phenytoin (Dilantin) 100 mg TID PO ; Start 06/15/18 at 21:00 Tamsulosin HCl (Flomax) 0.4 mg HS PO ; Start 06/15/18 at 21:00 Thiamine HCl (Vitamin B1) 100 mg DAILY PO ; Start 06/16/18 at 09:00 Miscellaneous Information 1 ea NOTE XX ; Start 06/15/18 at 16:30 Glucose (Glutose) 15 gm Q15M PRN PO DECREASED GLUCOSE; Start 06/15/18 at 16:30 Glucose (Glutose) 22.5 gm Q15M PRN PO DECREASED GLUCOSE; Start 06/15/18 at 16:30 Dextrose (D50w Syringe) 25 ml Q15M PRN IV DECREASED GLUCOSE; Start 06/15/18 at 16:30 Dextrose (D50w Syringe) 50 ml Q15M PRN IV DECREASED GLUCOSE; Start 06/15/18 at 16:30 Glucagon (Glucagen) 1 mg Q15M PRN IM DECREASED GLUCOSE; Start 06/15/18 at 16:30 Glucose (Glutose) 15 gm Q15M PRN BUCCAL DECREASED GLUCOSE; Start 06/15/18 at 16:30 BRYANT GARCIA DPM Jun 15, 2018 18:00
--- NOTE | 2018-06-15 18:47 | CONS ---
Assessment/Plan Assessment/Plan Assessment/Plan (Daily) 1. Acute hyperkalemia due to HAZEL on CKD II 2. Acute kidney injury on CKD III 3. Acute on chronic back pain due to lumbar spine compression fracture 4. H/O HTN 5. h/O HL 6. H/O hypothyroidism 7. H/o depression 8. H/o seizure disorder Plan: NO ACEI/ARB due to acute hyperkalemia urine studies including Urine Na, urine prot/cr ratio, Urine eosinophils, CK total , Urica christina Renal US in 2018 showed Possible 1 cm mass in the left posterior wall of the urinary bladder, possibly partially calcified.The kidneys are normal in size, contour, cortical thickness and cortical echogenicity. The right kidney measures 11.2 cm. The left kidney measures 12 cm. S/p 2 L NS in ED, will continue IVF NS at 75 cc/hr IV abx invanz , renally dose all abx and monitor electrolytes Thanks for consultation, I will continue to follow up Consultation Date/Type/Reason Admit Date/Time Jun 15, 2018 at 13:29 Date of Consultation: Jun 15, 2018 Type of Consult NEPHROLOGY Reason for Consultation acute hyperkalemia, acute on chronic renal failure Requesting Provider: HOLLIS BROWN MD Date/Time of Note DATE: 06/15/18 TIME: 18:46 Hx of Present Illness 53 yo man with hypertension, diabetes mellitus type 2, dyslipidemia, seizure disorder, depression, alcoholism, and right foot osteomyelitis who presents with worsening fatigue, fall, lumbar compression fracture, and hyperkalemia pt is admitted for lumbar compression fracture for pain control, noted to have hyperkalemia with K 6.0, BUN/Cr 44/2.18- pt received full Treatment for Hyperkalemia in ED, still follow up K 6.2- no EKG changes, no chest pain, no palpitaiton, no SOB< no nausea, no vomiting, on abdominal pain Constitutional: poor po Eyes: no complaints ENT: no complaints Respiratory: no complaints Cardiovascular: no complaints Gastrointestinal: no complaints Genitourinary: no complaints Musculoskeletal: back pain, bone/joint pain, neck pain, restricted range of motion Neurologic: no complaints Endocrine: no complaints Lymphatic: no complaints Psychological: no complaints Immunologic: no complaints Past Medical History Medical History: diabetes, high cholesterol, hypertension, hypothyroid, other (Depression, seizure disorder ) Home Meds Active Scripts Atorvastatin* (Atorvastatin*) 40 Mg Tablet, 40 MG PO HS, #30 TAB 4 Refills Prov:BEVERLY DUBON. 05/28/18 Reported Medications Aspirin* (Aspirin* EC) 81 Mg Tablet.dr, 81 MG PO DAILY, TAB 05/31/18 Hydrocodone/Acetaminophen ([place] 10-325 Tablet) 1 Each Tablet, 1 EACH PO BID, TAB 05/21/18 Hydrochlorothiazide* (Hydrochlorothiazide*) 12.5 Mg Tablet, 12.5 MG PO DAILY, #30 TAB 05/21/18 Tamsulosin Hcl* (Tamsulosin Hcl*) 0.4 Mg Cap.er.24h, 0.4 MG PO HS, CAP 05/21/18 Lactobacillus Acidophilus (Probiotic Acidophilus) 1 Each Tablet, 1 EACH PO DAILY, TAB 05/21/18 Sitagliptin* (Januvia*) 100 Mg Tablet, 100 MG PO DAILY, #30 TAB 05/21/18 Phenytoin* Sodium Extended (Dilantin*) 100 Mg Capsule, 100 MG PO TID, CAP 05/21/18 Thiamine* (Vitamin B-1*) 100 Mg Tablet, 100 MG PO DAILY, TAB 05/21/18 Ferrous Sulfate* (Ferrous Sulfate*) 325 Mg Tabec, 325 MG PO DAILY, TAB 05/21/18 Glipizide* (Glipizide*) 10 Mg Tablet, 10 MG PO AC BREAKFAST, TAB 05/21/18 Insulin Glargine,Hum.rec.anlog (Basaglar Kwikpen U-100) 100 Unit/1 Ml Insuln.pen, 9 UNIT SC QHS, EA 03/02/18 Gabapentin* (Gabapentin*) 100 Mg Capsule, 200 MG PO BID, #180 CAP 03/02/18 Carbamazepine* (Tegretol Xr*) 200 Mg Tab.sr.12h, 200 MG PO Q12, TAB.SA 08/29/17 Folic Acid* (Folic Acid*) 1 Mg Tablet, 1 MG PO DAILY, TAB 08/29/17 Fluoxetine Hcl* (Prozac*) 40 Mg Capsule, 40 MG PO DAILY, CAP 08/29/17 Medications Current Medications Sodium Chloride 1,000 ml @ 80 mls/hr [id number] IV Last administered on 06/15/18at 15:30; Admin Dose 80 MLS/HR; Start 06/15/18 at 13:28; Stop 06/16/18 at 01:57 IV Flush (NS 3 ml) 3 ml PER PROTOCOL IV ; Start 06/15/18 at 16:00 Heparin Sodium (Porcine) (Heparin (5000 Units/1ml)) 5,000 unit Q8 SC ; Start 06/15/18 at 22:00 Ertapenem 1 gm/ Sodium Chloride 100 ml @ 200 mls/hr Q24H IVPB Last administered on 06/15/18at 17:37; Admin Dose 200 MLS/HR; Start 06/15/18 at 17:00 Acetaminophen/ Hydrocodone Bitart ([place] ()) 1 tab Q4H PRN PO lower back pain Last administered on 06/15/18at 17:29; Admin Dose 1 TAB; Start 06/15/18 at 1 6:30 Diagnostic Test (Pha) (Accu-Chek) 1 ea 02 XX ; Start 06/16/18 at 02:00 Insulin Glargine (Lantus) 10 units DAILY@2000 SC ; Start 06/15/18 at 20:00 Insulin Aspart (Novolog Insulin Pen) NOVOLOG *MODERATE* ALGORITHM WITH MEALS BEDTIME SC ; Start 06/15/18 at 17:55 Aspirin (Halfprin) 81 mg DAILY PO ; Start 06/16/18 at 09:00 Atorvastatin Calcium (Lipitor) 40 mg HS PO ; Start 06/15/18 at 21:00 Carbamazepine (Tegretol Xr) 200 mg Q12 PO ; Start 06/15/18 at 21:00 Fluoxetine HCl (Prozac) 40 mg DAILY PO ; Start 06/16/18 at 09:00 Folic Acid (Folic Acid) 1 mg DAILY PO ; Start 06/16/18 at 09:00 Gabapentin (Neurontin) 200 mg BID PO ; Start 06/15/18 at 21:00 Hydrochlorothiazide (Hydrochlorothiazide) 12.5 mg DAILY PO ; Start 06/16/18 at 09:00 Phenytoin (Dilantin) 100 mg TID PO ; Start 06/15/18 at 21:00 Tamsulosin HCl (Flomax) 0.4 mg HS PO ; Start 06/15/18 at 21:00 Thiamine HCl (Vitamin B1) 100 mg DAILY PO ; Start 06/16/18 at 09:00 Miscellaneous Information 1 ea NOTE XX ; Start 06/15/18 at 16:30 Glucose (Glutose) 15 gm Q15M PRN PO DECREASED GLUCOSE; Start 06/15/18 at 16:30 Glucose (Glutose) 22.5 gm Q15M PRN PO DECREASED GLUCOSE; Start 06/15/18 at 16:30 Dextrose (D50w Syringe) 25 ml Q15M PRN IV DECREASED GLUCOSE; Start 06/15/18 at 16:30 Dextrose (D50w Syringe) 50 ml Q15M PRN IV DECREASED GLUCOSE; Start 06/15/18 at 16:30 Glucagon (Glucagen) 1 mg Q15M PRN IM DECREASED GLUCOSE; Start 06/15/18 at 16:30 Glucose (Glutose) 15 gm Q15M PRN BUCCAL DECREASED GLUCOSE; Start 06/15/18 at 16:30 Allergies: Coded Allergies: mushroom (Verified Allergy, Severe, 06/15/18) swollen throat, No Known Drug Allergy (Verified Allergy, Unknown, 06/15/18) Past Surgical History Past Surgical Hx: other (Right knee surgery <Right foot amputation, left foot second toe amputation ) Family History Significant Family History: no pertinent family hx Social History Alcohol Use: sober (since early May 2018) Smoking Status: Former smoker Drug Use: none Exam/Review of Systems Exam Vitals Vital Signs Date Temp Pulse Resp B/P (MAP) Pulse Ox O2 O2 Flow FiO2 Time Delivery Rate 06/15/18 93 16:09 06/15/18 98.1 18 123/62 94 15:15 (82) 06/15/18 Room Air 14:21 Constitutional: other (Fatigued, tired due to back pain ) Psych: no complaints Head: normocephalic Eyes: nl conjunctiva ENMT: nl external ears & nose Neck: supple, non-tender Respiratory: clear to auscultation, congested cough, diminished breath sounds Cardiovascular: regular rate and rhythm, nl pulses Gastrointestinal: soft, non-tender Musculoskeletal: joint tenderness, muscle weakness, range of motion (limited due to back pain ), other Neurological: VISION SPECIALIST II-XII intact, nl mental status, nl speech, nl strength Skin: nl turgor Lymph: nl lymph nodes Results Result Diagram: 06/15/18 1119 06/15/18 1240 Results 24hrs Laboratory Tests Test 06/15/18 11:18 06/15/18 11:19 06/15/18 12:40 06/15/18 14:07 Urine Color YELLOW Urine Clarity CLEAR Urine pH 5.0 Urine Specific 1.013 [place] Urine Ketones NEGATIVE Urine Nitrite NEGATIVE Urine Bilirubin NEGATIVE Urine Urobilinogen NEGATIVE Urine Leukocyte NEGATIVE Esterase Urine Hemoglobin NEGATIVE Urine Glucose NEGATIVE Urine Total Protein NEGATIVE White Blood Count 10.2 # Red Blood Count 3.56 L Hemoglobin 10.0 L Hematocrit 30.8 L Mean Corpuscular 86.5 Volume Mean Corpuscular 28.1 L Hemoglobin Mean Corpuscular 32.5 Hemoglobin Concent Red Cell 13.0 Distribution Width Platelet Count 340 Mean Platelet Volume 10.1 Immature 1.400 H Granulocytes % Neutrophils % 81.7 H Lymphocytes % 8.2 L Monocytes % 6.6 Eosinophils % 1.6 Basophils % 0.5 Nucleated Red Blood 0.0 Cells % Immature 0.140 H Granulocytes # Neutrophils # 8.3 H Lymphocytes # 0.8 Monocytes # 0.7 Eosinophils # 0.2 Basophils # 0.1 Nucleated Red Blood 0.0 Cells # Sodium Level 140 Potassium Level 6.4 *H 6.2 *H Chloride Level 109 Carbon Dioxide Level 21 Anion Gap 10 Blood Urea Nitrogen 44 H Creatinine 2.18 H Est Glomerular 32 L Filtrat Rate mL/min Glucose Level 141 Calcium Level 9.8 Total Bilirubin 0.2 Direct Bilirubin 0.00 Indirect Bilirubin 0.2 Aspartate Amino 42 Transf (AST/SGOT) Alanine 42 Aminotransferase (AL T/SGPT) Alkaline Phosphatase 148 H Troponin I < 0.012 Total Protein 8.5 H Albumin 4.8 Globulin 3.70 H Albumin/Globulin 1.29 Ratio Bedside Glucose 97 Test 06/15/18 15:25 06/15/18 15:43 06/15/18 16:12 06/15/18 16:26 Bedside Glucose 44 *L 74 119 129 Test 06/15/18 17:05 Bedside Glucose 140 Medications Medication Current Medications Sodium Chloride 1,000 ml @ 80 mls/hr [id number] IV Last administered on 06/15/18at 15:30; Admin Dose 80 MLS/HR; Start 06/15/18 at 13:28; Stop 06/16/18 at 01:57 IV Flush (NS 3 ml) 3 ml PER PROTOCOL IV ; Start 06/15/18 at 16:00 Heparin Sodium (Porcine) (Heparin (5000 Units/1ml)) 5,000 unit Q8 SC ; Start 06/15/18 at 22:00 Ertapenem 1 gm/ Sodium Chloride 100 ml @ 200 mls/hr Q24H IVPB Last adminis tered on 06/15/18at 17:37; Admin Dose 200 MLS/HR; Start 06/15/18 at 17:00 Acetaminophen/ Hydrocodone Bitart ([place] (10/325)) 1 tab Q4H PRN PO lower back pain Last administered on 06/15/18at 17:29; Admin Dose 1 TAB; Start 06/15/18 at 16:30 Diagnostic Test (Pha) (Accu-Chek) 1 ea 02 XX ; Start 06/16/18 at 02:00 Insulin Glargine (Lantus) 10 units DAILY@2000 SC ; Start 06/15/18 at 20:00 Insulin Aspart (Novolog Insulin Pen) NOVOLOG *MODERATE* ALGORITHM WITH MEALS BEDTIME SC ; Start 06/15/18 at 17:55 Aspirin (Halfprin) 81 mg DAILY PO ; Start 06/16/18 at 09:00 Atorvastatin Calcium (Lipitor) 40 mg HS PO ; Start 06/15/18 at 21:00 Carbamazepine (Tegretol Xr) 200 mg Q12 PO ; Start 06/15/18 at 21:00 Fluoxetine HCl (Prozac) 40 mg DAILY PO ; Start 06/16/18 at 09:00 Folic Acid (Folic Acid) 1 mg DAILY PO ; Start 06/16/18 at 09:00 Gabapentin (Neurontin) 200 mg BID PO ; Start 06/15/18 at 21:00 Hydrochlorothiazide (Hydrochlorothiazide) 12.5 mg DAILY PO ; Start 06/16/18 at 09:00 Phenytoin (Dilantin) 100 mg TID PO ; Start 06/15/18 at 21:00 Tamsulosin HCl (Flomax) 0.4 mg HS PO ; Start 06/15/18 at 21:00 Thiamine HCl (Vitamin B1) 100 mg DAILY PO ; Start 06/16/18 at 09:00 Miscellaneous Information 1 ea NOTE XX ; Start 06/15/18 at 16:30 Glucose (Glutose) 15 gm Q15M PRN PO DECREASED GLUCOSE; Start 06/15/18 at 16:30 Glucose (Glutose) 22.5 gm Q15M PRN PO DECREASED GLUCOSE; Start 06/15/18 at 16:30 Dextrose (D50w Syringe) 25 ml Q15M PRN IV DECREASED GLUCOSE; Start 06/15/18 at 16:30 Dextrose (D50w Syringe) 50 ml Q15M PRN IV DECREASED GLUCOSE; Start 06/15/18 at 16:30 Glucagon (Glucagen) 1 mg Q15M PRN IM DECREASED GLUCOSE; Start 06/15/18 at 16:30 Glucose (Glutose) 15 gm Q15M PRN BUCCAL DECREASED GLUCOSE; Start 06/15/18 at 16:30 BHARATH NARANJO MD Jun 15, 2018 18:47
[2018-06-15 20:00] VITALS: BP 165/85; PULSE 82; PULSE 83; RESP 20
[2018-06-15] MEDS: SOD CHLORIDE 0.9% 1,000 ML IV SCH (20:00)
[2018-06-15] MEDS: carBAMAZepine (XR) 200 MG TABSR PO SCH (20:56)
[2018-06-15] MEDS: ATORVASTATIN 40 MG TAB PO SCH (20:56)
[2018-06-15] MEDS: TAMSULOSIN (SR) 0.4 MG CAP PO SCH (20:56)
[2018-06-15] MEDS: GABAPENTIN 100 MG CAP PO SCH (20:57)
[2018-06-15] MEDS: INSULIN GLARGINE [LANTus] (100 UNITS/ML) SYG SC SCH (21:03)
[2018-06-15] MEDS: HEPARIN 5,000 UNIT/1 ML VIAL SC SCH (21:04)
[2018-06-15] MEDS: PHENYTOIN 100 MG CAP PO SCH (21:06)
[2018-06-16] VITALS (10 sets, daily range): BP systolic 135–158; BP diastolic 80–92; PULSE 80–108; RESP 18–20
[2018-06-16] MEDS: HYDROCODONE/APAP (10/325) TAB PO PRN ×3 (01:09→16:35)
[2018-06-16] MEDS: ACCU-CHEK XX SCH (02:00)
[2018-06-16] MEDS: HEPARIN 5,000 UNIT/1 ML VIAL SC SCH ×3 (05:59→21:16)
[2018-06-16] MEDS: INSULIN ASPART [NOVOLOG] 3 ML PEN SC SCH ×4 (07:52→21:00)
[2018-06-16] MEDS: SOD CHLORIDE 0.9% 1,000 ML IV SCH (09:18)
[2018-06-16] MEDS: carBAMAZepine (XR) 200 MG TABSR PO SCH ×2 (09:19→21:06)
[2018-06-16] MEDS: PHENYTOIN 100 MG CAP PO SCH ×3 (09:20→21:06)
[2018-06-16] MEDS: THIAMINE 100 MG TAB PO SCH (09:20)
[2018-06-16] MEDS: FOLIC ACID 1 MG TAB PO SCH (09:20)
[2018-06-16] MEDS: GABAPENTIN 100 MG CAP PO SCH ×2 (09:20→21:06)
[2018-06-16] MEDS: ASPIRIN (EC) 81 MG TAB PO SCH (09:20)
[2018-06-16] MEDS: FLUOXETINE 20 MG CAP PO SCH (09:20)
[2018-06-16] MEDS: HYDROCHLOROTHIAZIDE 12.5 MG CAP PO SCH (09:23)
[2018-06-16] MEDS ORDERED: MAGNESIUM SULFATE 2 GM/50 ML 50 ML IVPB ONE (11:00)
[2018-06-16] MEDS: morphine (ER) 15 MG TAB PO SCH ×2 (11:13→21:07)
--- NOTE | 2018-06-16 14:18 | PN ---
Date/Time of Note Date/Time of Note DATE: 06/16/18 TIME: 14:12 Assessment/Plan VTE Prophylaxis Risk score (from Nsg)>0 risk: 2 SCD applied (from Nsg): No SCD contraindicated: other (LE wounds) Pharmacological prophylaxis: NA/contraindicated Pharm contraindication: low risk/ambulating Lines/Catheters IV Catheter Type (from Nrsg): PICC Line Central line still needed: Yes Urinary Cath still in place: No Assessment/Plan Assessment/Plan 53 yo man with hypertension, diabetes mellitus type 2, dyslipidemia, seizure disorder, depression, alcoholism, and right foot osteomyelitis who presents with worsening fatigue, fall, lumbar compression fracture, and hyperkalemia #Lumbar compression fracture - Pain inadequately controlled on PO norco, will add MS Contin. - Peripheral neuro exam intact, no concern for cord compression on physical exam or imaging. - PT #Hyperkalemia - Patient had this same unusual hyperkalemia last admission out of proportion to renal failure - Not on ACEi, ARB, spironolactone, or other potassium-sparing drugs. - Acute medical management with kayexalate - Not associated with EKG changes. - Dr. Hopkins consulted. #Fatigue #Frequent falls - Patient denies loss of consciousness or seizure-like activity. - May be due to chronic hyperkalemia. Will correct and re-evaluate - carbapenem antibiotics may also dizziness and orthostatic hypotension. Patient said these symptoms started around the same time. However the patient is nearing the end of his 4 week course (05/25-06/23) so may be better to just finish the course. - PT as above. #Osteomyelitis - Continue ertapenem (05/25-06/23) #Diabetes - Glargine 10 - Insulin sliding scale - Hold oral meds #Seizure disorder - Continue home phenytoin and carbamazepine DVT: SCDs GI: None Dispo: Due to frequent falls (reports about 6 in less than a month), probably not able to go back to previous living situation. Consulted social work. Result Diagram: 06/16/18 0743 06/16/18 0743 Subjective 24 Hr Interval Summary Free Text/Dictation No acute overnight events. Patient reports that lower back pain is still poorly controlled. Otherwise he is ambulatory, has good strength, no neuro deficits. Exam/Review of Systems Exam Vitals Vital Signs Date Temp Pulse Resp B/P (MAP) Pulse Ox O2 O2 Flow FiO2 Time Delivery Rate 06/16/18 89 12:23 06/16/18 98.0 18 137/85 98 11:46 (102) 06/15/18 Room Air 14:21 Intake and Output 06/15/18 06/15/18 06/16/18 1414:59 22:59 06:59 IntakeIntake Total 840 ml 1300 ml OutputOutput Total 10 ml BalanceBalance 840 ml 1290 ml Exam Gen: Fatigued appearing man lying in bed, no acute distress. Eyes: PERRL, no icterus HEENT: Moist mucous membranes, clear oropharynx Neck: Supple, full ROM, nontender Card: Regular rate and rhythm, no murmurs Pulm: Clear to auscultation bilaterally Abd: Slightly distended and tympanic, soft, nontender. Back: Midline spine tenderness around T12-L1. Ext: R foot bandaged. No edema. Neuro: 5/5 strength throughout both legs. No numbness or saddle anesthesia, no bladder or bowel incontinence. Results Results 24hrs Laboratory Tests Test 06/15/18 15:25 06/15/18 15:43 06/15/18 16:12 06/15/18 16:26 Bedside Glucose 44 *L 74 119 129 Test 06/15/18 17:05 06/15/18 20:54 06/16/18 01:11 06/16/18 01:40 Bedside Glucose 140 288 H 58 L 159 Test 06/16/18 07:43 06/16/18 07:51 06/16/18 11:19 06/16/18 12:00 White Blood Count 7.0 # Red Blood Count 3.20 L Hemoglobin 8.9 L Hematocrit 27.9 L Mean Corpuscular 87.2 Volume Mean Corpuscular 27.8 L Hemoglobin Mean Corpuscular 31.9 L Hemoglobin Concent Red Cell 13.1 Distribution Width Platelet Count 297 Mean Platelet Volume 10.6 H Immature 0.400 Granulocytes % Neutrophils % 77.3 H Lymphocytes % 8.4 L Monocytes % 8.3 Eosinophils % 5.3 Basophils % 0.3 Nucleated Red Blood 0.0 Cells % Immature 0.030 Granulocytes # Neutrophils # 5.4 Lymphocytes # 0.6 L Monocytes # 0.6 Eosinophils # 0.4 Basophils # 0.0 Nucleated Red Blood 0.0 Cells # Sodium Level 141 Potassium Level 5.0 Chloride Level 109 Carbon Dioxide Level 22 Anion Gap 10 Blood Urea Nitrogen 28 #H Creatinine 1.22 Est Glomerular > 60 Filtrat Rate mL/min Glucose Level 86 # Hemoglobin A1c 6.9 H Uric Acid 5.3 Calcium Level 8.8 Phosphorus Level 3.8 Magnesium Level 1.6 L Total Bilirubin 0.1 L Direct Bilirubin 0.00 Indirect Bilirubin 0.1 Aspartate Amino 30 Transf (AST/SGOT) Alanine 40 Aminotransferase (AL T/SGPT) Alkaline Phosphatase 115 Creatine Kinase 389 H Total Protein 6.8 # Albumin 4.0 Globulin 2.80 Albumin/Globulin 1.42 Ratio Thyroid Stimulating 2.150 Hormone (TSH) Bedside Glucose 99 155 Urine Eosinophils % 0.0 Urine Random 72.39 Creatinine Urine Random Sodium 124 H Urine 0.19 Protein/Creatinine Ratio Urine Total Protein 14.0 H Medications Medication Current Medications IV Flush (NS 3 ml) 3 ml PER PROTOCOL IV ; Start 06/15/18 at 16:00 Heparin Sodium (Porcine) (Heparin (5000 Units/1ml)) 5,000 unit Q8 SC Last administered on 06/16/18at 05:59; Admin Dose 5,000 UNIT; Start 06/15/18 at 22:00 Ertapenem 1 gm/ Sodium Chloride 100 ml @ 200 mls/hr Q24H IVPB Last administered on 06/15/18at 17:37; Admin Dose 200 MLS/HR; Start 06/15/18 at 17:00 Acetaminophen/ Hydrocodone Bitart ([place] (10/325)) 1 tab Q4H PRN PO lower back pain Last administered on 06/16/18 09:27; Admin Dose 1 TAB; Start 06/15/18 at 16:30 Diagnostic Test (Pha) (Accu-Chek) 1 ea 02 XX ; Start 06/16/18 at 02:00 Insulin Glargine (Lantus) 10 units DAILY@2000 SC Last administered on 06/15/18at 21:03; Admin Dose 10 UNITS; Start 06/15/18 at 20:00 Insulin Aspart (Novolog Insulin Pen) NOVOLOG *MODERATE* ALGORITHM WITH MEALS BEDTIME SC Last administered on 06/16/18at 11:24; Admin Dose 2 UNIT; Start 06/15/18 at 17:55 Aspirin (Halfprin) 81 mg DAILY PO Last administered on 06/16/18 09:20; Admin Dose 81 MG; Start 06/16/18 at 09:00 Atorvastatin Calcium (Lipitor) 40 mg HS PO Last administered on 06/15/18 20:56; Admin Dose 40 MG; Start 06/15/18 at 21:00 Carbamazepine (Tegretol Xr) 200 mg Q12 PO Last administered on 06/16/18 09:19; Admin Dose 200 MG; Start 06/15/18 at 21:00 Fluoxetine HCl (Prozac) 40 mg DAILY PO Last administered on 06/16/18 09:20; Admin Dose 40 MG; Start 06/16/18 at 09:00 Folic Acid (Folic Acid) 1 mg DAILY PO Last administered on 06/16/18 09:20; Admin Dose 1 MG; Start 06/16/18 at 09:00 Gabapentin (Neurontin) 200 mg BID PO Last administered on 06/16/18 09:20; Admin Dose 200 MG; Start 06/15/18 at 21:00 Hydrochlorothiazide (Hydrochlorothiazide) 12.5 mg DAILY PO Last administered on 06/16/18 09:23; Admin Dose 12.5 MG; Start 06/16/18 at 09:00 Phenytoin (Dilantin) 100 mg TID PO Last administered on 06/16/18 09:20; Admin Dose 100 MG; Start 06/15/18 at 21:00 Tamsulosin HCl (Flomax) 0.4 mg HS PO Last administered on 06/15/18 20:56; Admin Dose 0.4 MG; Start 06/15/18 at 21:00 Thiamine HCl (Vitamin B1) 100 mg DAILY PO Last administered on 06/16/18 09:20; Admin Dose 100 MG; Start 06/16/18 at 09:00 Miscellaneous Information 1 ea NOTE XX ; Start 06/15/18 at 16:30 Glucose (Glutose) 15 gm Q15M PRN PO DECREASED GLUCOSE Last administered on 06/16/18 01:15; Admin Dose 15 GM; Start 06/15/18 at 16:30 Glucose (Glutose) 22.5 gm Q15M PRN PO DECREASED GLUCOSE; Start 06/15/18 at 16:30 Dextrose (D50w Syringe) 25 ml Q15M PRN IV DECREASED GLUCOSE; Start 06/15/18 at 16:30 Dextrose (D50w Syringe) 50 ml Q15M PRN IV DECREASED GLUCOSE; Start 06/15/18 at 16:30 Glucagon (Glucagen) 1 mg Q15M PRN IM DECREASED GLUCOSE; Start 06/15/18 at 16:30 Glucose (Glutose) 15 gm Q15M PRN BUCCAL DECREASED GLUCOSE; Start 06/15/18 at 16:30 Sodium Chloride 1,000 ml @ 75 mls/hr [id number] IV Last administered on 06/16/18at 09:18; Admin Dose 75 MLS/HR; Start 06/15/18 at 20:00 Morphine Sulfate (Ms Contin (Er)) 15 mg BID PO Last administered on 06/16/18at 11:13; Admin Dose 15 MG; Start 06/16/18 at 11:00 HOLLIS BROWN MD Jun 16, 2018 14:18
--- NOTE | 2018-06-16 16:52 | CONS ---
Assessment/Plan Assessment/Plan Assessment/Plan (Daily) - Hypomagnesium- Mag replaced per PMD; AM Mag level 1. Acute hyperkalemia due to HAZEL on CKD II- resolevd 2. Acute kidney injury on CKD III 3. Acute on chronic back pain due to lumbar spine compression fracture 4. H/O HTN 5. h/O HL 6. H/O hypothyroidism 7. H/o depression 8. H/o seizure disorder 9. R foot osteomyelitis 10. Anemia Plan: -NO ACEI/ARB due to acute hyperkalemia; K 5.0 today -urine studies including -Urine Na elevated today - 124 -urine prot/cr ratio- wnl today- 0.19 -Urine eosinophils- wnl - 0.0 -CK total elevated today- 389 -Uric acid wnl- 5.3 -Renal US in 2018 showed Possible 1 cm mass in the left posterior wall of the urinary bladder, possibly partially calcified.The kidneys are normal in size, contour, cortical thickness and cortical echogenicity. The right kidney measures 11.2 cm. The left kidney measures 12 cm. S/p 2 L NS in ED, will continue IVF NS at 75 cc/hr IV abx invanz , renally dose all abx and monitor electrolytes Thanks for consultation, will continue to follow up Consultation Date/Type/Reason Admit Date/Time Jun 15, 2018 at 13:29 Initial Consult Date 06/15/18 Type of Consult NEPHROLOGY Reason for Consultation Acute kidney injury on CKD III Requesting Provider: HOLLIS BROWN MD Date/Time of Note DATE: 06/16/18 TIME: 16:45 24 HR Interval Summary Free Text/Dictation NAD afebrile resting in bed ; denies any complaints UO X5 voided no new issues reported last night per staff Detailed Summary Eyes: no complaints ENT: no complaints Respiratory: no complaints Cardiovascular: no complaints Gastrointestinal: no complaints Genitourinary: no complaints Musculoskeletal: bone/joint pain, restricted range of motion Skin: other Neurologic: no complaints Endocrine: no complaints Lymphatic: no complaints Psychological: nl mood/affect Immunologic: no complaints Exam/Review of Systems Exam Vitals Vital Signs Date Temp Pulse Resp B/P (MAP) Pulse Ox O2 O2 Flow FiO2 Time Delivery Rate 06/16/18 89 12:23 06/16/18 98.0 18 137/85 98 11:46 (102) 06/15/18 Room Air 14:21 Intake and Output 06/15/18 06/15/18 06/16/18 1515:00 23:00 07:00 IntakeIntake Total 840 ml 1300 ml OutputOutput Total 10 ml BalanceBalance 840 ml 1290 ml Constitutional: alert, oriented, well developed Psych: nl mood/affect Head: normocephalic Eyes: nl lids, nl sclera ENMT: nl external ears & nose Neck: non-tender Respiratory: clear to auscultation Cardiovascular: nl pulses, other (S1S2) Gastrointestinal: soft, non-tender Musculoskeletal: joint tenderness, range of motion, other Extremities: normal pulses Neurological: nl mental status, nl speech Skin: other Lymph: nontender Results Result Diagram: 06/16/18 0743 06/16/18 0743 Results 24hrs Laboratory Tests Test 06/15/18 17:05 06/15/18 20:54 06/16/18 01:11 06/16/18 01:40 Bedside Glucose 140 288 H 58 L 159 Test 06/16/18 07:43 06/16/18 07:51 06/16/18 11:19 06/16/18 12:00 White Blood Count 7.0 # Red Blood Count 3.20 L Hemoglobin 8.9 L Hematocrit 27.9 L Mean Corpuscular 87.2 Volume Mean Corpuscular 27.8 L Hemoglobin Mean Corpuscular 31.9 L Hemoglobin Concent Red Cell 13.1 Distribution Width Platelet Count 297 Mean Platelet Volume 10.6 H Immature 0.400 Granulocytes % Neutrophils % 77.3 H Lymphocytes % 8.4 L Monocytes % 8.3 Eosinophils % 5.3 Basophils % 0.3 Nucleated Red Blood 0.0 Cells % Immature 0.030 Granulocytes # Neutrophils # 5.4 Lymphocytes # 0.6 L Monocytes # 0.6 Eosinophils # 0.4 Basophils # 0.0 Nucleated Red Blood 0.0 Cells # Sodium Level 141 Potassium Level 5.0 Chloride Level 109 Carbon Dioxide Level 22 Anion Gap 10 Blood Urea Nitrogen 28 #H Creatinine 1.22 Est Glomerular > 60 Filtrat Rate mL/min Glucose Level 86 # Hemoglobin A1c 6.9 H Uric Acid 5.3 Calcium Level 8.8 Phosphorus Level 3.8 Magnesium Level 1.6 L Total Bilirubin 0.1 L Direct Bilirubin 0.00 Indirect Bilirubin 0.1 Aspartate Amino 30 Transf (AST/SGOT) Alanine 40 Aminotransferase (AL T/SGPT) Alkaline Phosphatase 115 Creatine Kinase 389 H Total Protein 6.8 # Albumin 4.0 Globulin 2.80 Albumin/Globulin 1.42 Ratio Thyroid Stimulating 2.150 Hormone (TSH) Bedside Glucose 99 155 Urine Eosinophils % 0.0 Urine Random 72.39 Creatinine Urine Random Sodium 124 H Urine 0.19 Protein/Creatinine Ratio Urine Total Protein 14.0 H Medications Medication Current Medications IV Flush (NS 3 ml) 3 ml PER PROTOCOL IV ; Start 06/15/18 at 16:00 Heparin Sodium (Porcine) (Heparin (5000 Units/1ml)) 5,000 unit Q8 SC Last administered on 06/16/18at 14:14; Admin Dose 5,000 UNIT; Start 06/15/18 at 22:00 Ertapenem 1 gm/ Sodium Chloride 100 ml @ 200 mls/hr Q24H IVPB Last administered on 06/15/18 17:37; Admin Dose 200 MLS/HR; Start 06/15/18 at 17:00 Acetaminophen/ Hydrocodone Bitart ([place] (10/325)) 1 tab Q4H PRN PO lower back pain Last administered on 06/16/18at 16:35; Admin Dose 1 TAB; Start 06/15/18 at 16:30 Diagnostic Test (Pha) (Accu-Chek) 1 ea 02 XX ; Start 06/16/18 at 02:00 Insulin Glargine (Lantus) 10 units DAILY@2000 SC Last administered on 06/15/18 21:03; Admin Dose 10 UNITS; Start 06/15/18 at 20:00 Insulin Aspart (Novolog Insulin Pen) NOVOLOG *MODERATE* ALGORITHM WITH MEALS BEDTIME SC Last administered on 06/16/18at 11:24; Admin Dose 2 UNIT; Start 06/15/18 at 17:55 Aspirin (Halfprin) 81 mg DAILY PO Last administered on 06/16/18 09:20; Admin Dose 81 MG; Start 06/16/18 at 09:00 Atorvastatin Calcium (Lipitor) 40 mg HS PO Last administered on 06/15/18at 20:56; Admin Dose 40 MG; Start 06/15/18 at 21:00 Carbamazepine (Tegretol Xr) 200 mg Q12 PO Last administered on 06/16/18at 09:19; Admin Dose 200 MG; Start 06/15/18 at 21:00 Fluoxetine HCl (Prozac) 40 mg DAILY PO Last administered on 06/16/18at 09:20; Admin Dose 40 MG; Start 06/16/18 at 09:00 Folic Acid (Folic Acid) 1 mg DAILY PO Last administered on 06/16/18 09:20; Admin Dose 1 MG; Start 06/16/18 at 09:00 Gabapentin (Neurontin) 200 mg BID PO Last administered on 06/16/18 09:20; Admin Dose 200 MG; Start 06/15/18 at 21:00 Hydrochlorothiazide (Hydrochlorothiazide) 12.5 mg DAILY PO Last administered on 06/16/18 09:23; Admin Dose 12.5 MG; Start 06/16/18 at 09:00 Phenytoin (Dilantin) 100 mg TID PO Last administered on 06/16/18at 14:09; Admin Dose 100 MG; Start 06/15/18 at 21:00 Tamsulosin HCl (Flomax) 0.4 mg HS PO Last administered on 06/15/18at 20:56; Admin Dose 0.4 MG; Start 06/15/18 at 21:00 Thiamine HCl (Vitamin B1) 100 mg DAILY PO Last administered on 06/16/18 09:20; Admin Dose 100 MG; Start 06/16/18 at 09:00 Miscellaneous Information 1 ea NOTE XX ; Start 06/15/18 at 16:30 Glucose (Glutose) 15 gm Q15M PRN PO DECREASED GLUCOSE Last administered on 06/16/18at 01:15; Admin Dose 15 GM; Start 06/15/18 at 16:30 Glucose (Glutose) 22.5 gm Q15M PRN PO DECREASED GLUCOSE; Start 06/15/18 at 16:3 0 Dextrose (D50w Syringe) 25 ml Q15M PRN IV DECREASED GLUCOSE; Start 06/15/18 at 16:30 Dextrose (D50w Syringe) 50 ml Q15M PRN IV DECREASED GLUCOSE; Start 06/15/18 at 16:30 Glucagon (Glucagen) 1 mg Q15M PRN IM DECREASED GLUCOSE; Start 06/15/18 at 16:30 Glucose (Glutose) 15 gm Q15M PRN BUCCAL DECREASED GLUCOSE; Start 06/15/18 at 16:30 Morphine Sulfate (Ms Contin (Er)) 15 mg BID PO Last administered on 06/16/18at 11:13; Admin Dose 15 MG; Start 06/16/18 at 11:00 SITA GAY Jun 16, 2018 16:52
[2018-06-16] MEDS: ERTAPENEM SODIUM 1 GM in SOD CHLORIDE 0.9% 100 ML IVPB SCH (17:02)
[2018-06-16] MEDS: TAMSULOSIN (SR) 0.4 MG CAP PO SCH (21:06)
[2018-06-16] MEDS: ATORVASTATIN 40 MG TAB PO SCH (21:06)
[2018-06-16] MEDS: INSULIN GLARGINE [LANTus] (100 UNITS/ML) SYG SC SCH (21:13)
[2018-06-17] VITALS: BP 109/67; PULSE 86; RESP 16
[2018-06-17] MEDS: ACCU-CHEK XX SCH ×2 (01:57→23:13)
[2018-06-17] MEDS: HYDROCODONE/APAP (10/325) TAB PO PRN ×2 (02:39→21:01)
[2018-06-17] MEDS: HEPARIN 5,000 UNIT/1 ML VIAL SC SCH ×3 (05:03→21:36)
[2018-06-17 07:21] VITALS: BP 139/84; PULSE 83; RESP 20
[2018-06-17] MEDS: INSULIN ASPART [NOVOLOG] 3 ML PEN SC SCH ×4 (07:50→21:00)
[2018-06-17] MEDS: FLUOXETINE 20 MG CAP PO SCH (08:40)
[2018-06-17] MEDS: PHENYTOIN 100 MG CAP PO SCH ×3 (08:40→21:01)
[2018-06-17] MEDS: GABAPENTIN 100 MG CAP PO SCH ×2 (08:40→20:59)
[2018-06-17] MEDS: FOLIC ACID 1 MG TAB PO SCH (08:43)
[2018-06-17] MEDS: HYDROCHLOROTHIAZIDE 12.5 MG CAP PO SCH (08:43)
[2018-06-17] MEDS: THIAMINE 100 MG TAB PO SCH (08:43)
[2018-06-17] MEDS: morphine (ER) 15 MG TAB PO SCH ×2 (08:44→21:34)
[2018-06-17] MEDS: ASPIRIN (EC) 81 MG TAB PO SCH (08:44)
[2018-06-17] MEDS: carBAMAZepine (XR) 200 MG TABSR PO SCH ×2 (10:31→20:59)
--- NOTE | 2018-06-17 12:18 | CONS ---
Assessment/Plan Assessment/Plan Assessment/Plan (Daily) -Hyperkalemia 5.5 today- Kayexalate 30 g po x1 ; am BMP - Hypomagnesium- Mag replaced per PMD; will check Mag level 1. Acute hyperkalemia due to HAZEL on CKD II- Kayexalate 30 gm po x1; bmp am 2. Acute kidney injury on CKD III 3. Acute on chronic back pain due to lumbar spine compression fracture 4. H/O HTN 5. h/O HL 6. H/O hypothyroidism 7. H/o depression 8. H/o seizure disorder 9. R foot osteomyelitis 10. Anemia Plan: -NO ACEI/ARB due to acute hyperkalemia; K 5.5 today -urine studies including -Urine Na elevated today - 124 -urine prot/cr ratio- wnl today- 0.19 -Urine eosinophils- wnl - 0.0 -CK total elevated today- 389 -Uric acid wnl- 5.3 -Renal US in 2018 showed Possible 1 cm mass in the left posterior wall of the urinary bladder, possibly partially calcified.The kidneys are normal in size, contour, cortical thickness and cortical echogenicity. The right kidney measures 11.2 cm. The left kidney measures 12 cm. S/p 2 L NS in ED, will continue IVF NS at 75 cc/hr IV abx invanz , renally dose all abx and monitor electrolytes Thanks for consultation, will continue to follow up Patient seen in collaboration with Dr Hopkins. Dw staff Consultation Date/Type/Reason Admit Date/Time Jun 15, 2018 at 1:29 pm Initial Consult Date 06/15/18 Type of Consult NEPHROLOGY Reason for Consultation Acute kidney injury on CKD III Requesting Provider: HOLLIS BROWN MD Date/Time of Note DATE: 06/17/18 TIME: 12:13 24 HR Interval Summary Free Text/Dictation NAD afebrile resting in bed ; denies any complaints Hyperkalemia- will give kayexalate ; BMP am UO- x 8 VOIDED no new issues reported last night per staff Detailed Summary Eyes: no complaints ENT: no complaints Cardiovascular: no complaints Gastrointestinal: nausea Genitourinary: no complaints Musculoskeletal: bone/joint pain, restricted range of motion Skin: no complaints Neurologic: no complaints Endocrine: no complaints Exam/Review of Systems Exam Vitals Vital Signs Date Temp Pulse Resp B/P (MAP) Pulse Ox O2 O2 Flow FiO2 Time Delivery Rate 06/17/18 98.1 83 20 139/84 96 Room Air 07:21 (102) Intake and Output 06/16/18 06/16/18 06/17/18 1515:00 23:00 07:00 IntakeIntake Total 900 ml 1100 ml BalanceBalance 900 ml 1100 ml Results Result Diagram: 06/17/18 0502 06/17/18 0502 Results 24hrs Laboratory Tests Test 06/16/18 17:05 06/16/18 21:05 06/17/18 01:39 06/17/18 05:02 Bedside Glucose 160 96 156 White Blood Count 6.5 Red Blood Count 3.14 L Hemoglobin 8.8 L Hematocrit 27.4 L Mean Corpuscular 87.3 Volume Mean Corpuscular 28.0 L Hemoglobin Mean Corpuscular 32.1 Hemoglobin Concent Red Cell 13.0 Distribution Width Platelet Count 285 Mean Platelet Volume 10.9 H Immature 0.200 Granulocytes % Neutrophils % 67.2 Lymphocytes % 13.8 L Monocytes % 9.0 Eosinophils % 9.2 H Basophils % 0.6 Nucleated Red Blood 0.0 Cells % Immature 0.010 Granulocytes # Neutrophils # 4.4 Lymphocytes # 0.9 Monocytes # 0.6 Eosinophils # 0.6 H Basophils # 0.0 Nucleated Red Blood 0.0 Cells # Sodium Level 136 Potassium Level 5.5 H Chloride Level 103 Carbon Dioxide Level 23 Anion Gap 10 Blood Urea Nitrogen 31 H Creatinine 1.41 H Est Glomerular 52 L Filtrat Rate mL/min Glucose Level 111 Calcium Level 9.3 Total Bilirubin 0.1 L Direct Bilirubin 0.00 Indirect Bilirubin 0.1 Aspartate Amino 28 Transf (AST/SGOT) Alanine 35 Aminotransferase (AL T/SGPT) Alkaline Phosphatase 116 Total Protein 7.5 Albumin 4.2 Globulin 3.30 H Albumin/Globulin 1.27 Ratio Test 06/17/18 08:05 Bedside Glucose 106 Medications Medication Current Medications IV Flush (NS 3 ml) 3 ml PER PROTOCOL IV ; Start 06/15/18 at 16:00 Heparin Sodium (Porcine) (Heparin (5000 Units/1ml)) 5,000 unit Q8 SC Last administered on 06/17/18at 05:03; Admin Dose 5,000 UNIT; Start 06/15/18 at 22:00 Ertapenem 1 gm/ Sodium Chloride 100 ml @ 200 mls/hr Q24H IVPB Last administered on 06/16/18 17:02; Admin Dose 200 MLS/HR; Start 06/15/18 at 17:00 Acetaminophen/ Hydrocodone Bitart ([place] (10/325)) 1 tab Q4H PRN PO lower back pain Last administered on 06/17/18 02:39; Admin Dose 1 TAB; Start 06/15/18 at 16:30 Diagnostic Test (Pha) (Accu-Chek) 1 ea 02 XX ; Start 06/16/18 at 02:00 Insulin Glargine (Lantus) 10 units DAILY@2000 SC Last administered on 06/16/18 21:13; Admin Dose 10 UNITS; Start 06/15/18 at 20:00 Insulin Aspart (Novolog Insulin Pen) NOVOLOG *MODERATE* ALGORITHM WITH MEALS BEDTIME SC Last administered on 06/16/18 17:20; Admin Dose 2 UNIT; Start 06/15/18 at 17:55 Aspirin (Halfprin) 81 mg DAILY PO Last administered on 06/17/18 08:44; Admin Dose 81 MG; Start 06/16/18 at 09:00 Atorvastatin Calcium (Lipitor) 40 mg HS PO Last administered on 06/16/18 21:06; Admin Dose 40 MG; Start 06/15/18 at 21:00 Carbamazepine (Tegretol Xr) 200 mg Q12 PO Last administered on 06/17/18 10:31; Admin Dose 200 MG; Start 06/15/18 at 21:00 Fluoxetine HCl (Prozac) 40 mg DAILY PO Last administered on 06/17/18 08:40; Admin Dose 40 MG; Start 06/16/18 at 09:00 Folic Acid (Folic Acid) 1 mg DAILY PO Last administered on 06/17/18 08:43; Admin Dose 1 MG; Start 06/16/18 at 09:00 Gabapentin (Neurontin) 200 mg BID PO Last administered on 06/17/18 08:40; Admin Dose 200 MG; Start 06/15/18 at 21:00 Hydrochlorothiazide (Hydrochlorothiazide) 12.5 mg DAILY PO Last administered on 06/17/18 08:43; Admin Dose 12.5 MG; Start 06/16/18 at 09:00 Phenytoin (Dilantin) 100 mg TID PO Last administered on 4/17/19at 08:40; Admin Dose 100 MG; Start 06/15/18 at 21:00 Tamsulosin HCl (Flomax) 0.4 mg HS PO Last administered on 06/16/18at 21:06; Admin Dose 0.4 MG; Start 06/15/18 at 21:00 Thiamine HCl (Vitamin B1) 100 mg DAILY PO Last administered on 06/17/18at 08:43; Admin Dose 100 MG; Start 06/16/18 at 09:00 Miscellaneous Information 1 ea NOTE XX ; Start 06/15/18 at 16:30 Glucose (Glutose) 15 gm Q15M PRN PO DECREASED GLUCOSE Last administered on 06/16/18at 01:15; Admin Dose 15 GM; Start 06/15/18 at 16:30 Glucose (Glutose) 22.5 gm Q15M PRN PO DECREASED GLUCOSE; Start 06/15/18 at 16:30 Dextrose (D50w Syringe) 25 ml Q15M PRN IV DECREASED GLUCOSE; Start 06/15/18 at 16:30 Dextrose (D50w Syringe) 50 ml Q15M PRN IV DECREASED GLUCOSE; Start 06/15/18 at 16:30 Glucagon (Glucagen) 1 mg Q15M PRN IM DECREASED GLUCOSE; Start 06/15/18 at 16:30 Glucose (Glutose) 15 gm Q15M PRN BUCCAL DECREASED GLUCOSE; Start 06/15/18 at 16:30 Morphine Sulfate (Ms Contin (Er)) 15 mg BID PO Last administered on 06/17/18at 08:44; Admin Dose 15 MG; Start 06/16/18 at 11:00 SITA GAY Jun 17, 2018 12:18
[2018-06-17] MEDS ORDERED: NA POLYST SULFON 15 GM/60 ML BTL PO ONE (12:30)
[2018-06-17 15:06] VITALS: BP 136/83; PULSE 85; RESP 18
--- NOTE | 2018-06-17 16:39 | PN ---
Date/Time of Note Date/Time of Note DATE: 06/17/18 TIME: 16:36 Assessment/Plan VTE Prophylaxis Risk score (from Nsg)>0 risk: 5 SCD applied (from Ns): Yes Pharmacological prophylaxis: NA/contraindicated Pharm contraindication: low risk/ambulating Lines/Catheters IV Catheter Type (from Nrsg): PICC Line Central line still needed: Yes Urinary Cath still in place: No Assessment/Plan Assessment/Plan 53 yo man with hypertension, diabetes mellitus type 2, dyslipidemia, seizure disorder, depression, alcoholism, and right foot osteomyelitis who presents with worsening fatigue, fall, lumbar compression fracture, and hyperkalemia #Lumbar compression fracture - Pain adequately controlled on MS Contin with [place] for breakthrough. - Peripheral neuro exam intact, no concern for cord compression on physical exam or imaging. - Walking with PT. #Hyperkalemia - Patient had this same unusual hyperkalemia last admission out of proportion to renal failure - Not on ACEi, ARB, spironolactone, or other potassium-sparing drugs. - Acute medical management with kayexalate - Not associated with EKG changes. - Dr. Hopkins consulted. #Fatigue #Frequent falls - Patient denies loss of consciousness or seizure-like activity. - May be due to chronic hyperkalemia. Will correct and re-evaluate - carbapenem antibiotics may also dizziness and orthostatic hypotension. Patient said these symptoms started around the same time. However the patient is nearing the end of his 4 week course (05/25-06/23) so may be better to just finish the course. - PT as above. #Osteomyelitis - Continue ertapenem (05/25-06/23) #Diabetes - Glargine 10 - Insulin sliding scale - Hold oral meds #Seizure disorder - Continue home phenytoin and carbamazepine DVT: SCDs GI: None Dispo: Patient declines SNF, has caregiver at home. Understands the risk of falls if he goes back home which is the plan currently. However his potassium is still a mystery and I would prefer to have this issue resolved before he goes home. Result Diagram: 06/17/18 0502 06/17/18 0502 Subjective 24 Hr Interval Summary Free Text/Dictation No acute overnight events. Patient doing well. Walked with PT again today. Exam/Review of Systems Exam Vitals Vital Signs Date Temp Pulse Resp B/P (MAP) Pulse Ox O2 O2 Flow FiO2 Time Delivery Rate 06/17/18 98.2 85 18 136/83 96 Room Air 15:06 (100) Intake and Output 06/16/18 06/16/18 06/17/18 1515:00 23:00 07:00 IntakeIntake Total 900 ml 1100 ml BalanceBalance 900 ml 1100 ml Exam Gen: Fatigued appearing man lying in bed, no acute distress. Eyes: PERRL, no icterus HEENT: Moist mucous membranes, clear oropharynx Neck: Supple, full ROM, nontender Card: Regular rate and rhythm, no murmurs Pulm: Clear to auscultation bilaterally Abd: Slightly distended and tympanic, soft, nontender. Back: Midline spine tenderness around T12-L1. Ext: R foot bandaged. No edema. Neuro: 5/5 strength throughout both legs. No numbness or saddle anesthesia, no bladder or bowel incontinence. Results Results 24hrs Laboratory Tests Test 06/16/18 17:05 06/16/18 21:05 06/17/18 01:39 06/17/18 05:02 Bedside Glucose 160 96 156 White Blood Count 6.5 Red Blood Count 3.14 L Hemoglobin 8.8 L Hematocrit 27.4 L Mean Corpuscular 87.3 Volume Mean Corpuscular 28.0 L Hemoglobin Mean Corpuscular 32.1 Hemoglobin Concent Red Cell 13.0 Distribution Width Platelet Count 285 Mean Platelet Volume 10.9 H Immature 0.200 Granulocytes % Neutrophils % 67.2 Lymphocytes % 13.8 L Monocytes % 9.0 Eosinophils % 9.2 H Basophils % 0.6 Nucleated Red Blood 0.0 Cells % Immature 0.010 Granulocytes # Neutrophils # 4.4 Lymphocytes # 0.9 Monocytes # 0.6 Eosinophils # 0.6 H Basophils # 0.0 Nucleated Red Blood 0.0 Cells # Sodium Level 136 Potassium Level 5.5 H Chloride Level 103 Carbon Dioxide Level 23 Anion Gap 10 Blood Urea Nitrogen 31 H Creatinine 1.41 H Est Glomerular 52 L Filtrat Rate mL/min Glucose Level 111 Calcium Level 9.3 Total Bilirubin 0.1 L Direct Bilirubin 0.00 Indirect Bilirubin 0.1 Aspartate Amino 28 Transf (AST/SGOT) Alanine 35 Aminotransferase (AL T/SGPT) Alkaline Phosphatase 116 Total Protein 7.5 Albumin 4.2 Globulin 3.30 H Albumin/Globulin 1.27 Ratio Test 06/17/18 08:05 06/17/18 12:38 06/17/18 14:27 Bedside Glucose 106 175 Magnesium Level 1.8 Medications Medication Current Medications IV Flush (NS 3 ml) 3 ml PER PROTOCOL IV ; Start 06/15/18 at 16:00 Heparin Sodium (Porcine) (Heparin (5000 Units/1ml)) 5,000 unit Q8 SC Last administered on 06/17/18 13:11; Admin Dose 5,000 UNIT; Start 06/15/18 at 22:00 Ertapenem 1 gm/ Sodium Chloride 100 ml @ 200 mls/hr Q24H IVPB Last administered on 06/16/18 17:02; Admin Dose 200 MLS/HR; Start 06/15/18 at 17:00 Acetaminophen/ Hydrocodone Bitart ([place] (10325)) 1 tab Q4H PRN PO lower back pain Last administered on 06/17/18at 02:39; Admin Dose 1 TAB; Start 06/15/18 at 16:30 Diagnostic Test (Pha) (Accu-Chek) 1 ea 02 XX ; Start 06/16/18 at 02:00 Insulin Glargine (Lantus) 10 units DAILY@2000 SC Last administered on 06/16/18 21:13; Admin Dose 10 UNITS; Start 06/15/18 at 20:00 Insulin Aspart (Novolog Insulin Pen) NOVOLOG *MODERATE* ALGORITHM WITH MEALS BEDTIME SC Last administered on 06/17/18 13:11; Admin Dose 1 UNIT; Start 06/15/18 at 17:55 Aspirin (Halfprin) 81 mg DAILY PO Last administered on 06/17/18 08:44; Admin Dose 81 MG; Start 06/16/18 at 09:00 Atorvastatin Calcium (Lipitor) 40 mg HS PO Last administered on 06/16/18 21:06; Admin Dose 40 MG; Start 06/15/18 at 21:00 Carbamazepine (Tegretol Xr) 200 mg Q12 PO Last administered on 06/17/18 10:31; Admin Dose 200 MG; Start 06/15/18 at 21:00 Fluoxetine HCl (Prozac) 40 mg DAILY PO Last administered on 06/17/18 08:40; Admin Dose 40 MG; Start 06/16/18 at 09:00 Folic Acid (Folic Acid) 1 mg DAILY PO Last administered on 06/17/18 08:43; Admin Dose 1 MG; Start 06/16/18 at 09:00 Gabapentin (Neurontin) 200 mg BID PO Last administered on 06/17/18 08:40; Admin Dose 200 MG; Start 06/15/18 at 21:00 Hydrochlorothiazide (Hydrochlorothiazide) 12.5 mg DAILY PO Last administered on 06/17/18 08:43; Admin Dose 12.5 MG; Start 06/16/18 at 09:00 Phenytoin (Dilantin) 100 mg TID PO Last administered on 06/17/18 13:08; Admin Dose 100 MG; Start 06/15/18 at 21:00 Tamsulosin HCl (Flomax) 0.4 mg HS PO Last administered on 06/16/18 21:06; Admi n Dose 0.4 MG; Start 06/15/18 at 21:00 Thiamine HCl (Vitamin B1) 100 mg DAILY PO Last administered on 06/17/18 08:43; Admin Dose 100 MG; Start 06/16/18 at 09:00 Miscellaneous Information 1 ea NOTE XX ; Start 06/15/18 at 16:30 Glucose (Glutose) 15 gm Q15M PRN PO DECREASED GLUCOSE Last administered on 06/16/18 01:15; Admin Dose 15 GM; Start 06/15/18 at 16:30 Glucose (Glutose) 22.5 gm Q15M PRN PO DECREASED GLUCOSE; Start 06/15/18 at 16:30 Dextrose (D50w Syringe) 25 ml Q15M PRN IV DECREASED GLUCOSE; Start 06/15/18 at 16:30 Dextrose (D50w Syringe) 50 ml Q15M PRN IV DECREASED GLUCOSE; Start 06/15/18 at 16:30 Glucagon (Glucagen) 1 mg Q15M PRN IM DECREASED GLUCOSE; Start 06/15/18 at 16:30 Glucose (Glutose) 15 gm Q15M PRN BUCCAL DECREASED GLUCOSE; Start 06/15/18 at 16:30 Morphine Sulfate (Ms Contin (Er)) 15 mg BID PO Last administered on 06/17/18 08:44; Admin Dose 15 MG; Start 06/16/18 at 11:00 HOLLIS BROWN MD Jun 17, 2018 16:39
[2018-06-17] MEDS: ERTAPENEM SODIUM 1 GM in SOD CHLORIDE 0.9% 100 ML IVPB SCH (18:03)
[2018-06-17 19:51] VITALS: BP 144/90; PULSE 89; RESP 20
[2018-06-17] MEDS: TAMSULOSIN (SR) 0.4 MG CAP PO SCH (20:59)
[2018-06-17] MEDS: ATORVASTATIN 40 MG TAB PO SCH (20:59)
[2018-06-17] MEDS: INSULIN GLARGINE [LANTus] (100 UNITS/ML) SYG SC SCH (21:11)
[2018-06-18 01:58] VITALS: BP 138/84; PULSE 84; RESP 20
[2018-06-18] MEDS: HYDROCODONE/APAP (10/325) TAB PO PRN ×3 (03:01→22:09)
[2018-06-18] MEDS: HEPARIN 5,000 UNIT/1 ML VIAL SC SCH ×3 (06:34→22:02)
[2018-06-18] MEDS: INSULIN ASPART [NOVOLOG] 3 ML PEN SC SCH ×4 (07:50→20:57)
[2018-06-18 08:00] VITALS: BP 162/89; PULSE 88; RESP 18
[2018-06-18 08:59] VITALS: BP 149/77; PULSE 86; RESP 18
[2018-06-18] MEDS: PHENYTOIN 100 MG CAP PO SCH ×3 (09:17→20:50)
[2018-06-18] MEDS: ASPIRIN (EC) 81 MG TAB PO SCH (09:17)
[2018-06-18] MEDS: FOLIC ACID 1 MG TAB PO SCH (09:17)
[2018-06-18] MEDS: HYDROCHLOROTHIAZIDE 12.5 MG CAP PO SCH (09:18)
[2018-06-18] MEDS: carBAMAZepine (XR) 200 MG TABSR PO SCH ×2 (09:19→20:50)
[2018-06-18] MEDS: THIAMINE 100 MG TAB PO SCH (09:19)
[2018-06-18] MEDS: FLUOXETINE 20 MG CAP PO SCH (09:19)
[2018-06-18] MEDS: GABAPENTIN 100 MG CAP PO SCH ×2 (09:19→20:50)
[2018-06-18] MEDS: morphine (ER) 15 MG TAB PO SCH ×2 (09:20→20:51)
--- NOTE | 2018-06-18 12:09 | CONS ---
Assessment/Plan Assessment/Plan Assessment/Plan (Daily) -Hyperkalemia 3.9 today- SP Kayexalate 30 g po x1 - resolved - Hypomagnesium- Mag replaced per PMD; will check Mag level 1. Acute hyperkalemia due to HAZEL on CKD II- Kayexalate 30 gm po x1; bmp am 2. Acute kidney injury on CKD III 3. Acute on chronic back pain due to lumbar spine compression fracture 4. H/O HTN 5. h/O HL 6. H/O hypothyroidism 7. H/o depression 8. H/o seizure disorder 9. R foot osteomyelitis-pending flap 10. Anemia Plan: -NO ACEI/ARB due to acute hyperkalemia; K 3.9 today -urine studies including -Urine Na elevated today - 124 -urine prot/cr ratio- wnl today- 0.19 -Urine eosinophils- wnl - 0.0 -CK total elevated today- 389 -Uric acid wnl- 5.3 -Renal US in 2018 showed Possible 1 cm mass in the left posterior wall of the urinary bladder, possibly partially calcified.The kidneys are normal in size, contour, cortical thickness and cortical echogenicity. The right kidney measures 11.2 cm. The left kidney measures 12 cm. S/p 2 L NS in ED, will continue IVF NS at 75 cc/hr IV abx invanz , renally dose all abx and monitor electrolytes Thanks for consultation, will continue to follow up Patient seen in collaboration with Dr Hopkins. [facility] staff Consultation Date/Type/Reason Admit Date/Time Jun 15, 2018 at 13:29 Initial Consult Date 06/15/18 Type of Consult NEPHROLOGY Reason for Consultation Acute kidney injury on CKD III Requesting Provider: HOLLIS BROWN MD Date/Time of Note DATE: 06/18/18 TIME: 12:07 24 HR Interval Summary Free Text/Dictation Family at bed side-all Qs answered Detailed Summary Eyes: no complaints ENT: no complaints Respiratory: no complaints Cardiovascular: no complaints Gastrointestinal: no complaints Genitourinary: no complaints Musculoskeletal: bone/joint pain, restricted range of motion Skin: no complaints Neurologic: no complaints Endocrine: no complaints Lymphatic: no complaints Psychological: nl mood/affect Immunologic: no complaints Exam/Review of Systems Exam Vitals Vital Signs Date Temp Pulse Resp B/P (MAP) Pulse Ox O2 O2 Flow FiO2 Time Delivery Rate 06/18/18 98.3 86 18 149/77 98 Room Air 08:59 (101) Intake and Output 06/17/18 06/17/18 06/18/18 1414:59 22:59 06:59 IntakeIntake Total 440 ml 300 ml 200 ml OutputOutput Total 400 ml BalanceBalance 440 ml 300 ml -200 ml Constitutional: alert, well developed Psych: nl mood/affect Head: atraumatic Eyes: nl lids, nl sclera ENMT: nl external ears & nose Neck: non-tender Respiratory: clear to auscultation Cardiovascular: nl pulses, other (s1s2) Gastrointestinal: soft, non-tender Musculoskeletal: nl extremities to inspection Extremities: normal pulses Neurological: nl speech, other (alertreponsive) Lymph: nontender Results Result Diagram: 06/18/18 0439 06/18/18 0439 Results 24hrs Laboratory Tests Test 06/17/18 12:38 06/17/18 14:27 06/17/18 17:50 06/17/18 21:00 Bedside Glucose 175 103 178 Magnesium Level 1.8 Test 06/18/18 04:39 06/18/18 09:04 White Blood Count 6.5 Red Blood Count 3.22 L Hemoglobin 8.9 L Hematocrit 27.6 L Mean Corpuscular 85.7 Volume Mean Corpuscular 27.6 L Hemoglobin Mean Corpuscular 32.2 Hemoglobin Concent Red Cell 13.0 Distribution Width Platelet Count 295 Mean Platelet Volume 10.9 H Immature 0.300 Granulocytes % Neutrophils % 60.8 Lymphocytes % 16.7 Monocytes % 11.9 H Eosinophils % 9.5 H Basophils % 0.8 Nucleated Red Blood 0.0 Cells % Immature 0.020 Granulocytes # Neutrophils # 4.0 Lymphocytes # 1.1 Monocytes # 0.8 Eosinophils # 0.6 H Basophils # 0.1 Nucleated Red Blood 0.0 Cells # Sodium Level 134 L Potassium Level 4.9 Chloride Level 101 Carbon Dioxide Level 24 Anion Gap 9 Blood Urea Nitrogen 37 H Creatinine 1.31 H Est Glomerular 57 L Filtrat Rate mL/min Glucose Level 112 Calcium Level 9.4 Phosphorus Level 5.6 H Magnesium Level 1.7 Total Bilirubin 0.1 L Direct Bilirubin 0.00 Indirect Bilirubin 0.1 Aspartate Amino 36 Transf (AST/SGOT) Alanine 36 Aminotransferase (AL T/SGPT) Alkaline Phosphatase 133 H Total Protein 7.9 Albumin 4.4 Globulin 3.50 H Albumin/Globulin 1.25 Ratio Bedside Glucose 120 Medications Medication Current Medications IV Flush (NS 3 ml) 3 ml PER PROTOCOL IV ; Start 06/15/18 at 16:00 Heparin Sodium (Porcine) (Heparin (5000 Units/1ml)) 5,000 unit Q8 SC Last administered on 06/18/18 06:34; Admin Dose 5,000 UNIT; Start 06/15/18 at 22:00 Ertapenem 1 gm/ Sodium Chloride 100 ml @ 200 mls/hr Q24H IVPB Last administered on 06/17/18 18:03; Admin Dose 200 MLS/HR; Start 06/15/18 at 17:00 Acetaminophen/ Hydrocodone Bitart ([place] (10)) 1 tab Q4H PRN PO lower back pain Last administered on 06/18/18at 03:01; Admin Dose 1 TAB; Start 06/15/18 at 16:30 Diagnostic Test (Pha) (Accu-Chek) 1 ea 02 XX ; Start 06/16/18 at 02:00 Insulin Glargine (Lantus) 10 units DAILY@2000 SC Last administered on 06/17/18 21:11; Admin Dose 10 UNITS; Start 06/15/18 at 20:00 Insulin Aspart (Novolog Insulin Pen) NOVOLOG *MODERATE* ALGORITHM WITH MEALS B EDTIME SC Last administered on 06/17/18at 13:11; Admin Dose 1 UNIT; Start 06/15/18 at 17:55 Aspirin (Halfprin) 81 mg DAILY PO Last administered on 06/18/18 09:17; Admin Dose 81 MG; Start 06/16/18 at 09:00 Atorvastatin Calcium (Lipitor) 40 mg HS PO Last administered on 06/17/18at 20:59; Admin Dose 40 MG; Start 06/15/18 at 21:00 Carbamazepine (Tegretol Xr) 200 mg Q12 PO Last administered on 06/18/18 09:19; Admin Dose 200 MG; Start 06/15/18 at 21:00 Fluoxetine HCl (Prozac) 40 mg DAILY PO Last administered on 06/18/18 09:19; Admin Dose 40 MG; Start 06/16/18 at 09:00 Folic Acid (Folic Acid) 1 mg DAILY PO Last administered on 06/18/18 09:17; Admin Dose 1 MG; Start 06/16/18 at 09:00 Gabapentin (Neurontin) 200 mg BID PO Last administered on 06/18/18 09:19; Admin Dose 200 MG; Start 06/15/18 at 21:00 Hydrochlorothiazide (Hydrochlorothiazide) 12.5 mg DAILY PO Last administered on 06/18/18 09:18; Admin Dose 12.5 MG; Start 06/16/18 at 09:00 Phenytoin (Dilantin) 100 mg TID PO Last administered on 06/18/18 09:17; Admin Dose 100 MG; Start 06/15/18 at 21:00 Tamsulosin HCl (Flomax) 0.4 mg HS PO Last administered on 06/17/18at 20:59; Admin Dose 0.4 MG; Start 06/15/18 at 21:00 Thiamine HCl (Vitamin B1) 100 mg DAILY PO Last administered on 06/18/18 09:19; Admin Dose 100 MG; Start 06/16/18 at 09:00 Miscellaneous Information 1 ea NOTE XX ; Start 06/15/18 at 16:30 Glucose (Glutose) 15 gm Q15M PRN PO DECREASED GLUCOSE Last administered on 06/16/18at 01:15; Admin Dose 15 GM; Start 06/15/18 at 16:30 Glucose (Glutose) 22.5 gm Q15M PRN PO DECREASED GLUCOSE; Start 06/15/18 at 16:30 Dextrose (D50w Syringe) 25 ml Q15M PRN IV DECREASED GLUCOSE; Start 06/15/18 at 16:30 Dextrose (D50w Syringe) 50 ml Q15M PRN IV DECREASED GLUCOSE; Start 06/15/18 at 16:30 Glucagon (Glucagen) 1 mg Q15M PRN IM DECREASED GLUCOSE; Start 06/15/18 at 16:30 Glucose (Glutose) 15 gm Q15M PRN BUCCAL DECREASED GLUCOSE; Start 06/15/18 at 16:30 Morphine Sulfate (Ms Contin (Er)) 15 mg BID PO Last administered on 06/18/18 09:20; Admin Dose 15 MG; Start 06/16/18 at 11:00 SITA GAY Jun 18, 2018 12:09
--- NOTE | 2018-06-18 14:13 | PN ---
Date/Time of Note Date/Time of Note DATE: 06/18/18 TIME: 14:10 Assessment/Plan VTE Prophylaxis Risk score (from Nsg)>0 risk: 3 SCD applied (from Ns): No SCD contraindicated: low risk/ambulating Pharmacological prophylaxis: heparin Lines/Catheters IV Catheter Type (from Nrsg): Central Line Central line still needed: Yes Urinary Cath still in place: No Assessment/Plan Assessment/Plan 53 yo man with hypertension, diabetes mellitus type 2, dyslipidemia, seizure disorder, depression, alcoholism, and right foot osteomyelitis who presents with worsening fatigue, fall, lumbar compression fracture, and hyperkalemia #Hyperkalemia - Patient had this same unusual hyperkalemia last admission out of proportion to renal failure - Not on ACEi, ARB, spironolactone, or other potassium-sparing drugs. - Acute medical management with kayexalate which he has been requiring about every other day. - Dr. Hopkins consulted. #Lumbar compression fracture - Pain adequately controlled on MS Contin with [place] for breakthrough. - Peripheral neuro exam intact, no concern for cord compression on physical exam or imaging. - Walking with PT. #Fatigue #Frequent falls - Patient denies loss of consciousness or seizure-like activity. - May be due to chronic hyperkalemia. - carbapenem antibiotics may also dizziness and orthostatic hypotension. Patient said these symptoms started around the same time. However the patient is nearing the end of his 4 week course (05/25-06/23) so may be better to just finish the course. - PT as above. #Osteomyelitis - Continue ertapenem (05/25-06/23) #Diabetes - Glargine 10 - Insulin sliding scale - Hold oral meds #Seizure disorder - Continue home phenytoin and carbamazepine DVT: SCDs GI: None Dispo: Patient declines SNF, has caregiver at home. Requires continued hospitalization for refractory hyperkalemia requiring kayexalate every other day. Result Diagram: 06/18/18 0439 06/18/18 0439 Subjective 24 Hr Interval Summary Free Text/Dictation No acute overnight events. Patient ambulatory without assistance Feeling well. Exam/Review of Systems Exam Vitals Vital Signs Date Temp Pulse Resp B/P (MAP) Pulse Ox O2 O2 Flow FiO2 Time Delivery Rate 06/18/18 98.3 86 18 149/77 98 Room Air 08:59 (101) Intake and Output 06/17/18 06/17/18 06/18/18 1515:00 23:00 07:00 IntakeIntake Total 440 ml 300 ml 200 ml OutputOutput Total 400 ml BalanceBalance 440 ml 300 ml -200 ml Exam Gen: Fatigued appearing man lying in bed, no acute distress. Eyes: PERRL, no icterus HEENT: Moist mucous membranes, clear oropharynx Neck: Supple, full ROM, nontender Card: Regular rate and rhythm, no murmurs Pulm: Clear to auscultation bilaterally Abd: Slightly distended and tympanic, soft, nontender. Back: Midline spine tenderness around T12-L1. Ext: R foot bandaged. No edema. Neuro: 5/5 strength throughout both legs. No numbness or saddle anesthesia, no bladder or bowel incontinence. Results Results 24hrs Laboratory Tests Test 06/17/18 14:27 06/17/18 17:50 06/17/18 21:00 06/18/18 04:39 Magnesium Level 1.8 1.7 Bedside Glucose 103 178 White Blood Count 6.5 Red Blood Count 3.22 L Hemoglobin 8.9 L Hematocrit 27.6 L Mean Corpuscular 85.7 Volume Mean Corpuscular 27.6 L Hemoglobin Mean Corpuscular 32.2 Hemoglobin Concent Red Cell 13.0 Distribution Width Platelet Count 295 Mean Platelet Volume 10.9 H Immature 0.300 Granulocytes % Neutrophils % 60.8 Lymphocytes % 16.7 Monocytes % 11.9 H Eosinophils % 9.5 H Basophils % 0.8 Nucleated Red Blood 0.0 Cells % Immature 0.020 Granulocytes # Neutrophils # 4.0 Lymphocytes # 1.1 Monocytes # 0.8 Eosinophils # 0.6 H Basophils # 0.1 Nucleated Red Blood 0.0 Cells # Sodium Level 134 L Potassium Level 4.9 Chloride Level 101 Carbon Dioxide Level 24 Anion Gap 9 Blood Urea Nitrogen 37 H Creatinine 1.31 H Est Glomerular 57 L Filtrat Rate mL/min Glucose Level 112 Calcium Level 9.4 Phosphorus Level 5.6 H Total Bilirubin 0.1 L Direct Bilirubin 0.00 Indirect Bilirubin 0.1 Aspartate Amino 36 Transf (AST/SGOT) Alanine 36 Aminotransferase (AL T/SGPT) Alkaline Phosphatase 133 H Total Protein 7.9 Albumin 4.4 Globulin 3.50 H Albumin/Globulin 1.25 Ratio Test 06/18/18 09:04 06/18/18 13:05 Bedside Glucose 120 140 Medications Medication Current Medications IV Flush (NS 3 ml) 3 ml PER PROTOCOL IV ; Start 06/15/18 at 16:00 Heparin Sodium (Porcine) (Heparin (5000 Units/1ml)) 5,000 unit Q8 SC Last administered on 06/18/18 13:11; Admin Dose 5,000 UNIT; Start 06/15/18 at 22:00 Ertapenem 1 gm/ Sodium Chloride 100 ml @ 200 mls/hr Q24H IVPB Last administered on 06/17/18 18:03; Admin Dose 200 MLS/HR; Start 06/15/18 at 17:00 Acetaminophen/ Hydrocodone Bitart ([place] ()) 1 tab Q4H PRN PO lower back pain Last administered on 06/18/18at 03:01; Admin Dose 1 TAB; Start 06/15/18 at 16:30 Diagnostic Test (Pha) (Accu-Chek) 1 ea 02 XX ; Start 06/16/18 at 02:00 Insulin Glargine (Lantus) 10 units DAILY@2000 SC Last administered on 06/17/18 21:11; Admin Dose 10 UNITS; Start 06/15/18 at 20:00 Insulin Aspart (Novolog Insulin Pen) NOVOLOG *MODERATE* ALGORITHM WITH MEALS BEDTIME SC Last administered on 06/17/18 13:11; Admin Dose 1 UNIT; Start 06/15/18 at 17:55 Aspirin (Halfprin) 81 mg DAILY PO Last administered on 06/18/18 09:17; Admin Dose 81 MG; Start 06/16/18 at 09:00 Atorvastatin Calcium (Lipitor) 40 mg HS PO Last administered on 06/17/18at 20:59; Admin Dose 40 MG; Start 06/15/18 at 21:00 Carbamazepine (Tegretol Xr) 200 mg Q12 PO Last administered on 06/18/18 09:19; Admin Dose 200 MG; Start 06/15/18 at 21:00 Fluoxetine HCl (Prozac) 40 mg DAILY PO Last administered on 06/18/18 09:19; Admin Dose 40 MG; Start 06/16/18 at 09:00 Folic Acid (Folic Acid) 1 mg DAILY PO Last administered on 06/18/18 09:17; Admin Dose 1 MG; Start 06/16/18 at 09:00 Gabapentin (Neurontin) 200 mg BID PO Last administered on 06/18/18 09:19; Admin Dose 200 MG; Start 06/15/18 at 21:00 Hydrochlorothiazide (Hydrochlorothiazide) 12.5 mg DAILY PO Last administered on 06/18/18at 09:18; Admin Dose 12.5 MG; Start 06/16/18 at 09:00 Phenytoin (Dilantin) 100 mg TID PO Last administered on 06/18/18at 13:07; Admin Dose 100 MG; Start 06/15/18 at 21:00 Tamsulosin HCl (Flomax) 0.4 mg HS PO Last administered on 06/17/18at 20:59; Admin Dose 0.4 MG; Start 06/15/18 at 21:00 Thiamine HCl (Vitamin B1) 100 mg DAILY PO Last administered on 06/18/18 09:19; Admin Dose 100 MG; Start 06/16/18 at 09:00 Miscellaneous Information 1 ea NOTE XX ; Start 06/15/18 at 16:30 Glucose (Glutose) 15 gm Q15M PRN PO DECREASED GLUCOSE Last administered on 06/16/18at 01:15; Admin Dose 15 GM; Start 06/15/18 at 16:30 Glucose (Glutose) 22.5 gm Q15M PRN PO DECREASED GLUCOSE; Start 06/15/18 at 16:30 Dextrose (D50w Syringe) 25 ml Q15M PRN IV DECREASED GLUCOSE; Start 06/15/18 at 16:30 Dextrose (D50w Syringe) 50 ml Q15M PRN IV DECREASED GLUCOSE; Start 06/15/18 at 16:30 Glucagon (Glucagen) 1 mg Q15M PRN IM DECREASED GLUCOSE; Start 06/15/18 at 16:30 Glucose (Glutose) 15 gm Q15M PRN BUCCAL DECREASED GLUCOSE; Start 06/15/18 at 16:30 Morphine Sulfate (Ms Contin (Er)) 15 mg BID PO Last administered on 06/18/18at 09:20; Admin Dose 15 MG; Start 06/16/18 at 11:00 HOLLIS BROWN MD Jun 18, 2018 14:13
[2018-06-18] MEDS: ERTAPENEM SODIUM 1 GM in SOD CHLORIDE 0.9% 100 ML IVPB SCH (17:35)
[2018-06-18 19:15] VITALS: BP 124/72; PULSE 86; RESP 20
[2018-06-18] MEDS: TAMSULOSIN (SR) 0.4 MG CAP PO SCH (20:49)
[2018-06-18] MEDS: ATORVASTATIN 40 MG TAB PO SCH (20:50)
[2018-06-18] MEDS: INSULIN GLARGINE [LANTus] (100 UNITS/ML) SYG SC SCH (20:58)
[2018-06-19] MEDS: ACCU-CHEK XX SCH (02:00)
[2018-06-19 02:08] VITALS: BP 127/72; PULSE 83; RESP 20
[2018-06-19] MEDS: HEPARIN 5,000 UNIT/1 ML VIAL SC SCH ×3 (06:26→20:52)
[2018-06-19 07:21] VITALS: BP 144/87; PULSE 77; RESP 16
[2018-06-19] MEDS: INSULIN ASPART [NOVOLOG] 3 ML PEN SC SCH ×4 (07:50→19:59)
[2018-06-19] MEDS: HYDROCHLOROTHIAZIDE 12.5 MG CAP PO SCH (08:53)
[2018-06-19] MEDS: GABAPENTIN 100 MG CAP PO SCH ×2 (08:54→19:58)
[2018-06-19] MEDS: morphine (ER) 15 MG TAB PO SCH ×2 (08:54→20:51)
[2018-06-19] MEDS: FLUOXETINE 20 MG CAP PO SCH (08:55)
[2018-06-19] MEDS: ASPIRIN (EC) 81 MG TAB PO SCH (08:55)
[2018-06-19] MEDS: THIAMINE 100 MG TAB PO SCH (08:55)
[2018-06-19] MEDS: carBAMAZepine (XR) 200 MG TABSR PO SCH ×2 (08:55→19:58)
[2018-06-19] MEDS: PHENYTOIN 100 MG CAP PO SCH ×2 (08:55→13:03)
[2018-06-19] MEDS: FOLIC ACID 1 MG TAB PO SCH (08:55)
--- NOTE | 2018-06-19 10:27 | PN ---
Date/Time of Note Date/Time of Note DATE: 06/19/18 TIME: 10:22 Assessment/Plan VTE Prophylaxis Risk score (from Nsg)>0 risk: 3 SCD applied (from Nsg): Yes Pharmacological prophylaxis: heparin Lines/Catheters IV Catheter Type (from Nrsg): PICC Line Central line still needed: Yes Urinary Cath still in place: No Assessment/Plan Assessment/Plan 53 yo man with hypertension, diabetes mellitus type 2, dyslipidemia, seizure disorder, depression, alcoholism, and right foot osteomyelitis who presents with worsening fatigue, fall, lumbar compression fracture, and hyperkalemia #Hyperkalemia - Patient had this same unusual hyperkalemia last admission out of proportion to renal failure - Not on ACEi, ARB, spironolactone, or other potassium-sparing drugs. - Acute medical management with kayexalate - Dr. Hopkins consulted. #Lumbar compression fracture - Pain adequately controlled on MS Contin with [place] for breakthrough. - Peripheral neuro exam intact, no concern for cord compression on physical exam or imaging. - Walking with PT. #Fatigue #Frequent falls - Patient denies loss of consciousness or seizure-like activity. - May be due to chronic hyperkalemia. - carbapenem antibiotics may also dizziness and orthostatic hypotension. Patient said these symptoms started around the same time. However the patient is nearing the end of his 4 week course (05/25-06/21) so may be better to just finish the course. - PT as above. #Osteomyelitis - Continue ertapenem (05/25-06/21) #Diabetes - Glargine 10 - Insulin sliding scale - Hold oral meds #Seizure disorder - Continue home phenytoin and carbamazepine DVT: SCDs GI: None Dispo: Patient declines SNF, has caregiver at home. Requires continued hospitalization for refractory hyperkalemia, frequent falls. Result Diagram: 06/19/187 06/19/18446 Subjective 24 Hr Interval Summary Free Text/Dictation Patient is doing well. Ambulating with back and knee brace. Has not required [place] yet today. Reports calf cramping pain. Exam/Review of Systems Exam Vitals Vital Signs Date Temp Pulse Resp B/P (MAP) Pulse Ox O2 O2 Flow FiO2 Time Delivery Rate 06/19/18 98.4 77 16 144/87 95 Room Air 07:21 (106) Intake and Output 06/18/18 06/18/18 06/19/18 1515:00 23:00 07:00 IntakeIntake Total 200 ml 900 ml 360 ml OutputOutput Total 400 ml BalanceBalance -200 ml 900 ml 360 ml Exam Gen: Fatigued appearing man lying in bed, no acute distress. Eyes: PERRL, no icterus HEENT: Moist mucous membranes, clear oropharynx Neck: Supple, full ROM, nontender Card: Regular rate and rhythm, no murmurs Pulm: Clear to auscultation bilaterally Abd: Slightly distended and tympanic, soft, nontender. Back: Midline spine tenderness around T12-L1. Ext: R foot bandaged. No edema. Neuro: 5/5 strength throughout both legs. No numbness or saddle anesthesia, no bladder or bowel incontinence. Results Results 24hrs Laboratory Tests Test 06/18/18 13:05 06/18/18 17:58 06/18/18 20:55 06/19/18 04:47 Bedside Glucose 140 168 168 White Blood Count 5.9 Red Blood Count 3.04 L Hemoglobin 8.3 L Hematocrit 25.9 L Mean Corpuscular 85.2 Volume Mean Corpuscular 27.3 L Hemoglobin Mean Corpuscular 32.0 Hemoglobin Concent Red Cell 13.0 Distribution Width Platelet Count 280 Mean Platelet 10.7 H Volume Immature 0.500 H Granulocytes % Neutrophils % 58.1 Lymphocytes % 20.1 Monocytes % 10.9 Eosinophils % 9.7 H Basophils % 0.7 Nucleated Red 0.0 Blood Cells % Immature 0.030 Granulocytes # Neutrophils # 3.4 Lymphocytes # 1.2 Monocytes # 0.6 Eosinophils # 0.6 H Basophils # 0.0 Nucleated Red 0.0 Blood Cells # Sodium Level 137 Potassium Level 4.7 Chloride Level 101 Carbon Dioxide 25 Level Anion Gap 11 Blood Urea 37 H Nitrogen Creatinine 1.35 H Est Glomerular 55 L Filtrat Rate mL/min Glucose Level 114 Calcium Level 9.3 Total Bilirubin 0.1 L Direct Bilirubin 0.00 Indirect Bilirubin 0.1 Aspartate Amino 35 Transf (AST/SGOT) Alanine 33 Aminotransferase ( ALT/SGPT) Alkaline 142 H Phosphatase Total Protein 7.2 Albumin 4.1 Globulin 3.10 Albumin/Globulin 1.32 Ratio Test 06/19/18 08:16 06/19/18 09:46 Bedside Glucose 123 Lab Scanned Report REFERENCE LAB Medications Medication Current Medications IV Flush (NS 3 ml) 3 ml PER PROTOCOL IV ; Start 06/15/18 at 16:00 Heparin Sodium (Porcine) (Heparin (5000 Units/1ml)) 5,000 unit Q8 SC Last administered on 06/19/18 06:26; Admin Dose 5,000 UNIT; Start 06/15/18 at 22:00 Ertapenem 1 gm/ Sodium Chloride 100 ml @ 200 mls/hr Q24H IVPB Last administered on 06/18/18 17:35; Admin Dose 200 MLS/HR; Start 06/15/18 at 17:00 Acetaminophen/ Hydrocodone Bitart ([place] ()) 1 tab Q4H PRN PO lower back pain Last administered on 06/18/18 22:09; Admin Dose 1 TAB; Start 06/15/18 at 16:30 Diagnostic Test (Pha) (Accu-Chek) 1 ea 02 XX ; Start 06/16/18 at 02:00 Insulin Glargine (Lantus) 10 units DAILY@2000 SC Last administered on 06/18/18 20:58; Admin Dose 10 UNITS; Start 06/15/18 at 20:00 Insulin Aspart (Novolog Insulin Pen) NOVOLOG *MODERATE* ALGORITHM WITH MEALS BEDTIME SC Last administered on 06/18/18 18:02; Admin Dose 2 UNIT; Start 06/15/18 at 17:55 Aspirin (Halfprin) 81 mg DAILY PO Last administered on 06/19/18 08:55; Admin Dose 81 MG; Start 06/16/18 at 09:00 Atorvastatin Calcium (Lipitor) 40 mg HS PO Last administered on 06/18/18 20:50; Admin Dose 40 MG; Start 06/15/18 at 21:00 Carbamazepine (Tegretol Xr) 200 mg Q12 PO Last administered on 06/19/18 08:55; Admin Dose 200 MG; Start 06/15/18 at 21:00 Fluoxetine HCl (Prozac) 40 mg DAILY PO Last administered on 06/19/18 08:55; Admin Dose 40 MG; Start 06/16/18 at 09:00 Folic Acid (Folic Acid) 1 mg DAILY PO Last administered on 06/19/18 08:55; Admin Dose 1 MG; Start 06/16/18 at 09:00 Gabapentin (Neurontin) 200 mg BID PO Last administered on 06/19/18 08:54; Admin Dose 200 MG; Start 06/15/18 at 21:00 Hydrochlorothiazide (Hydrochlorothiazide) 12.5 mg DAILY PO Last administered on 06/19/18 08:53; Admin Dose 12.5 MG; Start 06/16/18 at 09:00 Phenytoin (Dilantin) 100 mg TID PO Last administered on 06/19/18 08:55; Admin Dose 100 MG; Start 06/15/18 at 21:00 Tamsulosin HCl (Flomax) 0.4 mg HS PO Last administered on 06/18/18 20:49; Admin Dose 0.4 MG; Start 06/15/18 at 21:00 Thiamine HCl (Vitamin B1) 100 mg DAILY PO Last administered on 06/19/18 08:55; Admin Dose 100 MG; Start 06/16/18 at 09:00 Miscellaneous Information 1 ea NOTE XX ; Start 06/15/18 at 16:30 Glucose (Glutose) 15 gm Q15M PRN PO DECREASED GLUCOSE Last administered on 06/16/18at 01:15; Admin Dose 15 GM; Start 06/15/18 at 16:30 Glucose (Glutose) 22.5 gm Q15M PRN PO DECREASED GLUCOSE; Start 06/15/18 at 16:30 Dextrose (D50w Syringe) 25 ml Q15M PRN IV DECREASED GLUCOSE; Start 06/15/18 at 16:30 Dextrose (D50w Syringe) 50 ml Q15M PRN IV DECREASED GLUCOSE; Start 06/15/18 at 16:30 Glucagon (Glucagen) 1 mg Q15M PRN IM DECREASED GLUCOSE; Start 06/15/18 at 16:30 Glucose (Glutose) 15 gm Q15M PRN BUCCAL DECREASED GLUCOSE; Start 06/15/18 at 16:30 Morphine Sulfate (Ms Contin (Er)) 15 mg BID PO Last administered on 06/19/18 08:54; Admin Dose 15 MG; Start 06/16/18 at 11:00 HOLLIS BROWN MD Jun 19, 2018 10:27
--- NOTE | 2018-06-19 12:13 | CONS ---
Assessment/Plan Assessment/Plan Assessment/Plan (Daily) - Hypomagnesium- resolved 1. Acute hyperkalemia due to HAZEL on CKD II- resolved - renal diet - dietary consult 2. Acute kidney injury on CKD III 3. Acute on chronic back pain due to lumbar spine compression fracture 4. H/O HTN 5. h/O HL 6. H/O hypothyroidism 7. H/o depression 8. H/o seizure disorder 9. R foot osteomyelitis-pending flap 10. Anemia Plan: -NO ACEI/ARB due to acute hyperkalemia; -urine studies including -Urine Na elevated today - 124 -urine prot/cr ratio- wnl today- 0.19 -Urine eosinophils- wnl - 0.0 -CK total elevated today- 389 -Uric acid wnl- 5.3 -Renal US in 2018 showed Possible 1 cm mass in the left posterior wall of the urinary bladder, possibly partially calcified.The kidneys are normal in size, contour, cortical thickness and cortical echogenicity. The right kidney measures 11.2 cm. The left kidney measures 12 cm. IV abx invanz , renally dose all abx and monitor electrolytes Thanks for consultation, will continue to follow up Patient seen in collaboration with Dr Hopkins. [facility] staff Consultation Date/Type/Reason Admit Date/Time Jun 15, 2018 at 13:29 Initial Consult Date 06/15/18 Type of Consult NEPHROLOGY Requesting Provider: HOLLIS BROWN MD Date/Time of Note DATE: 06/19/18 TIME: 12:05 24 HR Interval Summary Free Text/Dictation -nad - afebrile -UO- 400 + 800 stated ; 100- 6a-10 a= 1000ml. Staff was instructed to do strict IO. - plan for right foot flap once his infection gets cleared -no new issues reported by staff Detailed Summary Eyes: no complaints ENT: no complaints Respiratory: no complaints Cardiovascular: no complaints Gastrointestinal: no complaints Genitourinary: no complaints Musculoskeletal: bone/joint pain, restricted range of motion Skin: no complaints Neurologic: no complaints Endocrine: no complaints Lymphatic: no complaints Psychological: nl mood/affect Immunologic: no complaints Exam/Review of Systems Exam Vitals Vital Signs Date Temp Pulse Resp B/P (MAP) Pulse Ox O2 O2 Flow FiO2 Time Delivery Rate 06/19/18 98.4 77 16 144/87 95 Room Air 07:21 (106) Intake and Output 06/18/18 06/18/18 06/19/18 1515:00 23:00 07:00 IntakeIntake Total 200 ml 900 ml 360 ml OutputOutput Total 400 ml BalanceBalance -200 ml 900 ml 360 ml Constitutional: alert, well developed Psych: nl mood/affect Head: atraumatic Eyes: EOMI, nl lids, nl sclera ENMT: nl external ears & nose Neck: non-tender Respiratory: clear to auscultation Cardiovascular: nl pulses, other (s1s2) Gastrointestinal: soft, non-tender Musculoskeletal: joint tenderness, range of motion Extremities: other (ri foot infection- DDI ) Neurological: nl mental status, nl speech Results Result Diagram: 06/19/1844606/19/18446 Results 24hrs Laboratory Tests Test 06/18/18 13:05 06/18/18 17:58 06/18/18 20:55 06/19/18 04:47 Bedside Glucose 140 168 168 White Blood Count 5.9 Red Blood Count 3.04 L Hemoglobin 8.3 L Hematocrit 25.9 L Mean Corpuscular 85.2 Volume Mean Corpuscular 27.3 L Hemoglobin Mean Corpuscular 32.0 Hemoglobin Concent Red Cell 13.0 Distribution Width Platelet Count 280 Mean Platelet 10.7 H Volume Immature 0.500 H Granulocytes % Neutrophils % 58.1 Lymphocytes % 20.1 Monocytes % 10.9 Eosinophils % 9.7 H Basophils % 0.7 Nucleated Red 0.0 Blood Cells % Immature 0.030 Granulocytes # Neutrophils # 3.4 Lymphocytes # 1.2 Monocytes # 0.6 Eosinophils # 0.6 H Basophils # 0.0 Nucleated Red 0.0 Blood Cells # Sodium Level 137 Potassium Level 4.7 Chloride Level 101 Carbon Dioxide 25 Level Anion Gap 11 Blood Urea 37 H Nitrogen Creatinine 1.35 H Est Glomerular 55 L Filtrat Rate mL/min Glucose Level 114 Calcium Level 9.3 Total Bilirubin 0.1 L Direct Bilirubin 0.00 Indirect Bilirubin 0.1 Aspartate Amino 35 Transf (AST/SGOT) Alanine 33 Aminotransferase ( ALT/SGPT) Alkaline 142 H Phosphatase Total Protein 7.2 Albumin 4.1 Globulin 3.10 Albumin/Globulin 1.32 Ratio Test 06/19/18 08:16 06/19/18 09:46 Bedside Glucose 123 Lab Scanned Report REFERENCE LAB Medications Medication Current Medications IV Flush (NS 3 ml) 3 ml PER PROTOCOL IV ; Start 06/15/18 at 16:00 Heparin Sodium (Porcine) (Heparin (5000 Units/1ml)) 5,000 unit Q8 SC Last ad ministered on 06/19/18 06:26; Admin Dose 5,000 UNIT; Start 06/15/18 at 22:00 Ertapenem 1 gm/ Sodium Chloride 100 ml @ 200 mls/hr Q24H IVPB Last administered on 06/18/18 17:35; Admin Dose 200 MLS/HR; Start 06/15/18 at 17:00 Acetaminophen/ Hydrocodone Bitart ([place] (10)) 1 tab Q4H PRN PO lower back pain Last administered on 06/18/18 22:09; Admin Dose 1 TAB; Start 06/15/18 at 16:30 Diagnostic Test (Pha) (Accu-Chek) 1 ea 02 XX ; Start 06/16/18 at 02:00 Insulin Glargine (Lantus) 10 units DAILY@2000 SC Last administered on 06/18/18 20:58; Admin Dose 10 UNITS; Start 06/15/18 at 20:00 Insulin Aspart (Novolog Insulin Pen) NOVOLOG *MODERATE* ALGORITHM WITH MEALS BEDTIME SC Last administered on 06/18/18 18:02; Admin Dose 2 UNIT; Start 06/15/18 at 17:55 Aspirin (Halfprin) 81 mg DAILY PO Last administered on 06/19/18 08:55; Admin Dose 81 MG; Start 06/16/18 at 09:00 Atorvastatin Calcium (Lipitor) 40 mg HS PO Last administered on 06/18/18 20:50; Admin Dose 40 MG; Start 06/15/18 at 21:00 Carbamazepine (Tegretol Xr) 200 mg Q12 PO Last administered on 06/19/18 08:55; Admin Dose 200 MG; Start 06/15/18 at 21:00 Fluoxetine HCl (Prozac) 40 mg DAILY PO Last administered on 06/19/18 08:55; Admin Dose 40 MG; Start 06/16/18 at 09:00 Folic Acid (Folic Acid) 1 mg DAILY PO Last administered on 06/19/18 08:55; Admin Dose 1 MG; Start 06/16/18 at 09:00 Gabapentin (Neurontin) 200 mg BID PO Last administered on 06/19/18 08:54; Admin Dose 200 MG; Start 06/15/18 at 21:00 Hydrochlorothiazide (Hydrochlorothiazide) 12.5 mg DAILY PO Last administered on 06/19/18 08:53; Admin Dose 12.5 MG; Start 06/16/18 at 09:00 Phenytoin (Dilantin) 100 mg TID PO Last administered on 06/19/18 08:55; Admin Dose 100 MG; Start 06/15/18 at 21:00 Tamsulosin HCl (Flomax) 0.4 mg HS PO Last administered on 06/18/18 20:49; Admin Dose 0.4 MG; Start 06/15/18 at 21:00 Thiamine HCl (Vitamin B1) 100 mg DAILY PO Last administered on 06/19/18 08:55; Admin Dose 100 MG; Start 06/16/18 at 09:00 Miscellaneous Information 1 ea NOTE XX ; Start 06/15/18 at 16:30 Glucose (Glutose) 15 gm Q15M PRN PO DECREASED GLUCOSE Last administered on 06/16/18at 01:15; Admin Dose 15 GM; Start 06/15/18 at 16:30 Glucose (Glutose) 22.5 gm Q15M PRN PO DECREASED GLUCOSE; Start 06/15/18 at 16:30 Dextrose (D50w Syringe) 25 ml Q15M PRN IV DECREASED GLUCOSE; Start 06/15/18 at 16:30 Dextrose (D50w Syringe) 50 ml Q15M PRN IV DECREASED GLUCOSE; Start 06/15/18 at 16:30 Glucagon (Glucagen) 1 mg Q15M PRN IM DECREASED GLUCOSE; Start 06/15/18 at 16:30 Glucose (Glutose) 15 gm Q15M PRN BUCCAL DECREASED GLUCOSE; Start 06/15/18 at 16:30 Morphine Sulfate (Ms Contin (Er)) 15 mg BID PO Last administered on 06/19/18 08:54; Admin Dose 15 MG; Start 06/16/18 at 11:00 SITA GAY Jun 19, 2018 12:13
[2018-06-19] MEDS: HYDROCODONE/APAP (10/325) TAB PO PRN ×2 (14:14→20:51)
[2018-06-19 14:24] VITALS: BP 131/80; PULSE 79; RESP 18
[2018-06-19] MEDS: ERTAPENEM SODIUM 1 GM in SOD CHLORIDE 0.9% 100 ML IVPB SCH ×2 (17:32→18:33)
[2018-06-19 19:20] VITALS: BP 119/73; PULSE 81; RESP 20
[2018-06-19] MEDS: ATORVASTATIN 40 MG TAB PO SCH (19:57)
[2018-06-19] MEDS: TAMSULOSIN (SR) 0.4 MG CAP PO SCH (19:57)
[2018-06-19] MEDS: INSULIN GLARGINE [LANTus] (100 UNITS/ML) SYG SC SCH (20:01)
[2018-06-20 02:00] VITALS: BP 131/81; PULSE 80; RESP 18
[2018-06-20] MEDS: ACCU-CHEK XX SCH (02:00)
[2018-06-20] MEDS: HEPARIN 5,000 UNIT/1 ML VIAL SC SCH ×3 (06:03→22:33)
[2018-06-20] MEDS: PHENYTOIN 100 MG CAP PO SCH ×2 (06:05→20:37)
[2018-06-20] MEDS: INSULIN ASPART [NOVOLOG] 3 ML PEN SC SCH ×4 (07:50→20:42)
[2018-06-20 08:23] VITALS: BP 122/66; PULSE 78; RESP 18
[2018-06-20] MEDS: ASPIRIN (EC) 81 MG TAB PO SCH (08:48)
[2018-06-20] MEDS: carBAMAZepine (XR) 200 MG TABSR PO SCH ×2 (08:49→20:37)
[2018-06-20] MEDS: FLUOXETINE 20 MG CAP PO SCH (08:49)
[2018-06-20] MEDS: GABAPENTIN 100 MG CAP PO SCH ×2 (08:49→20:37)
[2018-06-20] MEDS: HYDROCHLOROTHIAZIDE 12.5 MG CAP PO SCH (08:49)
[2018-06-20] MEDS: FOLIC ACID 1 MG TAB PO SCH (08:49)
[2018-06-20] MEDS: THIAMINE 100 MG TAB PO SCH (08:50)
[2018-06-20] MEDS: morphine (ER) 15 MG TAB PO SCH ×2 (08:50→20:36)
[2018-06-20] MEDS ORDERED: MAGNESIUM SULFATE 2 GM/50 ML 50 ML IVPB ONE (11:00)
[2018-06-20] MEDS: HYDROCODONE/APAP (10/325) TAB PO PRN ×2 (14:37→20:36)
[2018-06-20 15:44] VITALS: BP 106/68; PULSE 81; RESP 18
--- NOTE | 2018-06-20 15:58 | PN ---
Date/Time of Note Date/Time of Note DATE: 06/20/18 TIME: 15:56 Assessment/Plan VTE Prophylaxis Risk score (from Nsg)>0 risk: 3 SCD applied (from Nsg): Yes Pharmacological prophylaxis: heparin Lines/Catheters IV Catheter Type (from Nrsg): PICC Line Central line still needed: Yes Urinary Cath still in place: No Assessment/Plan Assessment/Plan 53 yo man with hypertension, diabetes mellitus type 2, dyslipidemia, seizure disorder, depression, alcoholism, and right foot osteomyelitis who presents with worsening fatigue, fall, lumbar compression fracture, and hyperkalemia #Hyperkalemia - Patient had this same unusual hyperkalemia last admission out of proportion to renal failure - Not on ACEi, ARB, spironolactone, or other potassium-sparing drugs. - Acute medical management with kayexalate - Dr. Hopkins consulted. #Lumbar compression fracture - Pain adequately controlled on MS Contin with [place] for breakthrough. - Peripheral neuro exam intact, no concern for cord compression on physical exam or imaging. - Walking with PT. #Fatigue #Frequent falls - Patient denies loss of consciousness or seizure-like activity. - May be due to chronic hyperkalemia. - carbapenem antibiotics may also dizziness and orthostatic hypotension. Patient said these symptoms started around the same time. However the patient is nearing the end of his 4 week course (05/25-06/21) so may be better to just finish the course. - PT as above. #Osteomyelitis - Continue ertapenem (05/25-06/21) #Diabetes - Glargine 10 - Insulin sliding scale - Hold oral meds #Seizure disorder - Continue home phenytoin and carbamazepine DVT: SCDs GI: None Dispo: Patient declines SNF, has caregiver at home. Will finish course of IV antibiotics on Friday; afterwards podiatry may do skin graft. Result Diagram: 06/20/18 0450 06/20/18 0450 Subjective 24 Hr Interval Summary Free Text/Dictation No acute overnight events. Patient feeling well, no complaints. Exam/Review of Systems Exam Vitals Vital Signs Date Temp Pulse Resp B/P (MAP) Pulse Ox O2 O2 Flow FiO2 Time Delivery Rate 06/20/18 98.4 81 18 106/68 93 Room Air 15:44 (81) Intake and Output 06/19/18 06/19/18 06/20/18 1515:00 23:00 07:00 IntakeIntake Total 540 ml 1390 ml 420 ml OutputOutput Total 775 ml 1420 ml 700 ml BalanceBalance -235 ml -30 ml -280 ml Exam Gen: Fatigued appearing man lying in bed, no acute distress. Eyes: PERRL, no icterus HEENT: Moist mucous membranes, clear oropharynx Neck: Supple, full ROM, nontender Card: Regular rate and rhythm, no murmurs Pulm: Clear to auscultation bilaterally Abd: Slightly distended and tympanic, soft, nontender. Back: Midline spine tenderness around T12-L1. Ext: R foot bandaged. No edema. Neuro: 5/5 strength throughout both legs. No numbness or saddle anesthesia, no bladder or bowel incontinence. Results Results 24hrs Laboratory Tests Test 06/19/18 17:31 06/19/18 19:56 06/20/18 04:50 06/20/18 08:45 Bedside Glucose 138 165 117 White Blood Count 5.8 Red Blood Count 3.10 L Hemoglobin 8.6 L Hematocrit 26.6 L Mean Corpuscular 85.8 Volume Mean Corpuscular 27.7 L Hemoglobin Mean Corpuscular 32.3 Hemoglobin Concent Red Cell 13.0 Distribution Width Platelet Count 300 Mean Platelet Volume 10.6 H Immature 0.900 H Granulocytes % Neutrophils % 58.8 Lymphocytes % 20.9 Monocytes % 10.4 Eosinophils % 8.5 H Basophils % 0.5 Nucleated Red Blood 0.0 Cells % Immature 0.050 H Granulocytes # Neutrophils # 3.4 Lymphocytes # 1.2 Monocytes # 0.6 Eosinophils # 0.5 Basophils # 0.0 Nucleated Red Blood 0.0 Cells # Sodium Level 137 Potassium Level 4.5 Chloride Level 100 Carbon Dioxide Level 26 Anion Gap 11 Blood Urea Nitrogen 35 H Creatinine 1.45 H Est Glomerular 51 L Filtrat Rate mL/min Glucose Level 98 Calcium Level 9.5 Phosphorus Level 5.0 H Magnesium Level 1.6 L Total Bilirubin 0.1 L Direct Bilirubin 0.00 Indirect Bilirubin 0.1 Aspartate Amino 29 Transf (AST/SGOT) Alanine 28 Aminotransferase (AL T/SGPT) Alkaline Phosphatase 145 H Total Protein 7.4 Albumin 4.2 Globulin 3.20 Albumin/Globulin 1.31 Ratio Test 06/20/18 12:34 Bedside Glucose 254 H Medications Medication Current Medications IV Flush (NS 3 ml) 3 ml PER PROTOCOL IV ; Start 06/15/18 at 16:00 Heparin Sodium (Porcine) (Heparin (5000 Units/1ml)) 5,000 unit Q8 SC Last administered on 06/20/18 14:25; Admin Dose 5,000 UNIT; Start 06/15/18 at 22:00 Ertapenem 1 gm/ Sodium Chloride 100 ml @ 200 mls/hr Q24H IVPB Last administered on 06/19/18 18:33; Admin Dose 200 MLS/HR; Start 06/15/18 at 17:00 Acetaminophen/ Hydrocodone Bitart ([place] ()) 1 tab Q4H PRN PO lower back pain Last administered on 06/20/18 14:37; Admin Dose 1 TAB; Start 06/15/18 at 16:30 Diagnostic Test (Pha) (Accu-Chek) 1 ea 02 XX ; Start 06/16/18 at 02:00 Insulin Glargine (Lantus) 10 units DAILY@2000 SC Last administered on 06/19/18 20:01; Admin Dose 10 UNITS; Start 06/15/18 at 20:00 Insulin Aspart (Novolog Insulin Pen) NOVOLOG *MODERATE* ALGORITHM WITH MEALS BEDTIME SC Last administered on 06/20/18 12:39; Admin Dose 6 UNIT; Start 06/15/18 at 17:55 Aspirin (Halfprin) 81 mg DAILY PO Last administered on 06/20/18 08:48; Admin Dose 81 MG; Start 06/16/18 at 09:00 Atorvastatin Calcium (Lipitor) 40 mg HS PO Last administered on 06/19/18 19:57; Admin Dose 40 MG; Start 06/15/18 at 21:00 Carbamazepine (Tegretol Xr) 200 mg Q12 PO Last administered on 06/20/18 08:49; Admin Dose 200 MG; Start 06/15/18 at 21:00 Fluoxetine HCl (Prozac) 40 mg DAILY PO Last administered on 06/20/18 08:49; Admin Dose 40 MG; Start 06/16/18 at 09:00 Folic Acid (Folic Acid) 1 mg DAILY PO Last administered on 06/20/18 08:49; Admin Dose 1 MG; Start 06/16/18 at 09:00 Gabapentin (Neurontin) 200 mg BID PO Last administered on 06/20/18 08:49; Admin Dose 200 MG; Start 06/15/18 at 21:00 Hydrochlorothiazide (Hydrochlorothiazide) 12.5 mg DAILY PO Last administered on 06/20/18at 08:49; Admin Dose 12.5 MG; Start 06/16/18 at 09:00 Tamsulosin HCl (Flomax) 0.4 mg HS PO Last administered on 06/19/18at 19:57; Admin Dose 0.4 MG; Start 06/15/18 at 21:00 Thiamine HCl (Vitamin B1) 100 mg DAILY PO Last administered on 06/20/18 08:50; Admin Dose 100 MG; Start 06/16/18 at 09:00 Miscellaneous Information 1 ea NOTE XX ; Start 06/15/18 at 16:30 Glucose (Glutose) 15 gm Q15M PRN PO DECREASED GLUCOSE Last administered on 06/16/18at 01:15; Admin Dose 15 GM; Start 06/15/18 at 16:30 Glucose (Glutose) 22.5 gm Q15M PRN PO DECREASED GLUCOSE; Start 06/15/18 at 16:30 Dextrose (D50w Syringe) 25 ml Q15M PRN IV DECREASED GLUCOSE; Start 06/15/18 at 16:30 Dextrose (D50w Syringe) 50 ml Q15M PRN IV DECREASED GLUCOSE; Start 06/15/18 at 16:30 Glucagon (Glucagen) 1 mg Q15M PRN IM DECREASED GLUCOSE; Start 06/15/18 at 16:30 Glucose (Glutose) 15 gm Q15M PRN BUCCAL DECREASED GLUCOSE; Start 06/15/18 at 16:30 Morphine Sulfate (Ms Contin (Er)) 15 mg BID PO Last administered on 06/20/18at 08:50; Admin Dose 15 MG; Start 06/16/18 at 11:00 Phenytoin (Dilantin) 100 mg BID PO Last administered on 06/20/18at 06:05; Admin Dose 100 MG; Start 06/20/18 at 06:00 HOLLIS BROWN MD Jun 20, 2018 15:58
[2018-06-20] MEDS: ERTAPENEM SODIUM 1 GM in SOD CHLORIDE 0.9% 100 ML IVPB SCH (17:20)
--- NOTE | 2018-06-20 17:47 | CONS ---
Assessment/Plan Assessment/Plan Assessment/Plan (Daily) - Hypomagnesium- resolved 1. Acute hyperkalemia due to HAZEL on CKD II- resolved - renal diet - dietary consult 2. Acute kidney injury on CKD III - BUN/Cr - 35/1.45 today.Cr is up today 3. Acute on chronic back pain due to lumbar spine compression fracture 4. H/O HTN 5. h/O HL 6. H/O hypothyroidism 7. H/o depression 8. H/o seizure disorder 9. R foot osteomyelitis-pending flap 10. Anemia Plan: -NO ACEI/ARB due to acute hyperkalemia; -urine studies including -Urine Na elevated today - 124 -urine prot/cr ratio- wnl today- 0.19 -Urine eosinophils- wnl - 0.0 -CK total elevated today- 389 -Uric acid wnl- 5.3 -Renal US in 2018 showed Possible 1 cm mass in the left posterior wall of the urinary bladder, possibly partially calcified.The kidneys are normal in size, contour, cortical thickness and cortical echogenicity. The right kidney measures 11.2 cm. The left kidney measures 12 cm. IV abx invanz , renally dose all abx and monitor electrolytes Thanks for consultation, will continue to follow up Patient seen in collaboration with Dr Hopkins. [facility] staff Consultation Date/Type/Reason Admit Date/Time Jun 15, 2018 at 13:29 Initial Consult Date 06/15/18 Type of Consult NEPHROLOGY Reason for Consultation Acute kidney injury on CKD III Requesting Provider: HOLLIS BROWN MD Date/Time of Note DATE: 06/20/18 TIME: 17:46 Detailed Summary Eyes: no complaints ENT: no complaints Respiratory: no complaints Cardiovascular: no complaints Gastrointestinal: no complaints Genitourinary: no complaints Musculoskeletal: bone/joint pain, restricted range of motion Neurologic: no complaints Endocrine: no complaints Lymphatic: no complaints Psychological: nl mood/affect Immunologic: no complaints Exam/Review of Systems Exam Vitals Vital Signs Date Temp Pulse Resp B/P (MAP) Pulse Ox O2 O2 Flow FiO2 Time Delivery Rate 06/20/18 98.4 81 18 106/68 93 Room Air 15:44 (81) Intake and Output 06/19/18 06/19/18 06/20/18 1414:59 22:59 06:59 IntakeIntake Total 540 ml 1390 ml 420 ml OutputOutput Total 775 ml 1420 ml 700 ml BalanceBalance -235 ml -30 ml -280 ml Constitutional: alert, well developed Psych: nl mood/affect Eyes: nl lids, nl sclera ENMT: nl external ears & nose Neck: non-tender Respiratory: clear to auscultation Cardiovascular: nl pulses, other (s1s2) Gastrointestinal: soft, non-tender Musculoskeletal: joint tenderness, range of motion Extremities: other (right foot osteomyelitis) Neurological: nl speech, other (alert/responsive) Lymph: nontender Results Result Diagram: 06/20/18 0450 06/20/18 0450 Results 24hrs Laboratory Tests Test 06/19/18 19:56 06/20/18 04:50 06/20/18 08:45 06/20/18 12:34 Bedside Glucose 165 117 254 H White Blood Count 5.8 Red Blood Count 3.10 L Hemoglobin 8.6 L Hematocrit 26.6 L Mean Corpuscular 85.8 Volume Mean Corpuscular 27.7 L Hemoglobin Mean Corpuscular 32.3 Hemoglobin Concent Red Cell 13.0 Distribution Width Platelet Count 300 Mean Platelet Volume 10.6 H Immature 0.900 H Granulocytes % Neutrophils % 58.8 Lymphocytes % 20.9 Monocytes % 10.4 Eosinophils % 8.5 H Basophils % 0.5 Nucleated Red Blood 0.0 Cells % Immature 0.050 H Granulocytes # Neutrophils # 3.4 Lymphocytes # 1.2 Monocytes # 0.6 Eosinophils # 0.5 Basophils # 0.0 Nucleated Red Blood 0.0 Cells # Sodium Level 137 Potassium Level 4.5 Chloride Level 100 Carbon Dioxide Level 26 Anion Gap 11 Blood Urea Nitrogen 35 H Creatinine 1.45 H Est Glomerular 51 L Filtrat Rate mL/min Glucose Level 98 Calcium Level 9.5 Phosphorus Level 5.0 H Magnesium Level 1.6 L Total Bilirubin 0.1 L Direct Bilirubin 0.00 Indirect Bilirubin 0.1 Aspartate Amino 29 Transf (AST/SGOT) Alanine 28 Aminotransferase (AL T/SGPT) Alkaline Phosphatase 145 H Total Protein 7.4 Albumin 4.2 Globulin 3.20 Albumin/Globulin 1.31 Ratio Test 06/20/18 17:26 Bedside Glucose 153 Medications Medication Current Medications IV Flush (NS 3 ml) 3 ml PER PROTOCOL IV ; Start 06/15/18 at 16:00 Heparin Sodium (Porcine) (Heparin (5000 Units/1ml)) 5,000 unit Q8 SC Last administered on 06/20/18 14:25; Admin Dose 5,000 UNIT; Start 06/15/18 at 22:00 Ertapenem 1 gm/ Sodium Chloride 100 ml @ 200 mls/hr Q24H IVPB Last administered on 06/20/18 17:20; Admin Dose 200 MLS/HR; Start 06/15/18 at 17:00 Acetaminophen/ Hydrocodone Bitart ([place] (10/325)) 1 tab Q4H PRN PO lower back pain Last administered on 06/20/18 14:37; Admin Dose 1 TAB; Start 06/15/18 at 16:30 Diagnostic Test (Pha) (Accu-Chek) 1 ea 02 XX ; Start 06/16/18 at 02:00 Insulin Glargine (Lantus) 10 units DAILY@2000 SC Last administered on 06/19/18 20:01; Admin Dose 10 UNITS; Start 06/15/18 at 20:00 Insulin Aspart (Novolog Insulin Pen) NOVOLOG *MODERATE* ALGORITHM WITH MEALS BEDTIME SC Last administered on 06/20/18 12:39; Admin Dose 6 UNIT; Start 06/15/18 at 17:55 Aspirin (Halfprin) 81 mg DAILY PO Last administered on 06/20/18 08:48; Admin Dose 81 MG; Start 06/16/18 at 09:00 Atorvastatin Calcium (Lipitor) 40 mg HS PO Last administered on 06/19/18 19:57; Admin Dose 40 MG; Start 06/15/18 at 21:00 Carbamazepine (Tegretol Xr) 200 mg Q12 PO Last administered on 06/20/18 08:49; Admin Dose 200 MG; Start 06/15/18 at 21:00 Fluoxetine HCl (Prozac) 40 mg DAILY PO Last administered on 06/20/18 08:49; Admin Dose 40 MG; Start 06/16/18 at 09:00 Folic Acid (Folic Acid) 1 mg DAILY PO Last administered on 06/20/18 08:49; Admin Dose 1 MG; Start 06/16/18 at 09:00 Gabapentin (Neurontin) 200 mg BID PO Last administered on 06/20/18 08:49; Admin Dose 200 MG; Start 06/15/18 at 21:00 Hydrochlorothiazide (Hydrochlorothiazide) 12.5 mg DAILY PO Last administered on 06/20/18at 08:49; Admin Dose 12.5 MG; Start 06/16/18 at 09:00 Tamsulosin HCl (Flomax) 0.4 mg HS PO Last administered on 06/19/18at 19:57; Admin Dose 0.4 MG; Start 06/15/18 at 21:00 Thiamine HCl (Vitamin B1) 100 mg DAILY PO Last administered on 06/20/18at 08:50; Admin Dose 100 MG; Start 06/16/18 at 09:00 Miscellaneous Information 1 ea NOTE XX ; Start 06/15/18 at 16:30 Glucose (Glutose) 15 gm Q15M PRN PO DECREASED GLUCOSE Last administered on 06/16/18at 01:15; Admin Dose 15 GM; Start 06/15/18 at 16:30 Glucose (Glutose) 22.5 gm Q15M PRN PO DECREASED GLUCOSE; Start 06/15/18 at 16:30 Dextrose (D50w Syringe) 25 ml Q15M PRN IV DECREASED GLUCOSE; Start 06/15/18 at 16:30 Dextrose (D50w Syringe) 50 ml Q15M PRN IV DECREASED GLUCOSE; Start 06/15/18 at 16:30 Glucagon (Glucagen) 1 mg Q15M PRN IM DECREASED GLUCOSE; Start 06/15/18 at 16:30 Glucose (Glutose) 15 gm Q15M PRN BUCCAL DECREASED GLUCOSE; Start 06/15/18 at 16:30 Morphine Sulfate (Ms Contin (Er)) 15 mg BID PO Last administered on 06/20/18at 0 8:50; Admin Dose 15 MG; Start 06/16/18 at 11:00 Phenytoin (Dilantin) 100 mg BID PO Last administered on 06/20/18at 06:05; Admin Dose 100 MG; Start 06/20/18 at 06:00 SITA GAY Jun 20, 2018 17:47
[2018-06-20 20:00] VITALS: BP 119/73; PULSE 71; RESP 18
[2018-06-20] MEDS: TAMSULOSIN (SR) 0.4 MG CAP PO SCH (20:37)
[2018-06-20] MEDS: ATORVASTATIN 40 MG TAB PO SCH (20:37)
[2018-06-20] MEDS: INSULIN GLARGINE [LANTus] (100 UNITS/ML) SYG SC SCH (20:43)
[2018-06-21] MEDS: ACCU-CHEK XX SCH (02:00)
[2018-06-21 03:00] VITALS: BP 131/79; PULSE 79; RESP 20
[2018-06-21] MEDS: HEPARIN 5,000 UNIT/1 ML VIAL SC SCH ×3 (06:19→21:23)
[2018-06-21] MEDS: INSULIN ASPART [NOVOLOG] 3 ML PEN SC SCH ×4 (07:50→21:22)
[2018-06-21] MEDS: carBAMAZepine (XR) 200 MG TABSR PO SCH ×2 (08:26→21:20)
[2018-06-21] MEDS: FOLIC ACID 1 MG TAB PO SCH (08:32)
[2018-06-21] MEDS: GABAPENTIN 100 MG CAP PO SCH (08:33)
[2018-06-21] MEDS: THIAMINE 100 MG TAB PO SCH (08:33)
[2018-06-21] MEDS: FLUOXETINE 20 MG CAP PO SCH (08:33)
[2018-06-21] MEDS: morphine (ER) 15 MG TAB PO SCH ×2 (08:34→21:20)
[2018-06-21] MEDS: ASPIRIN (EC) 81 MG TAB PO SCH (08:34)
[2018-06-21] MEDS: HYDROCHLOROTHIAZIDE 12.5 MG CAP PO SCH (08:38)
[2018-06-21] MEDS: HYDROCODONE/APAP (10/325) TAB PO PRN ×3 (08:39→21:58)
[2018-06-21] MEDS: PHENYTOIN 100 MG CAP PO SCH ×2 (08:40→21:20)
[2018-06-21 08:41] VITALS: BP 142/71; PULSE 71; RESP 18
--- NOTE | 2018-06-21 10:44 | PN ---
Date/Time of Note Date/Time of Note DATE: 06/21/18 TIME: 10:43 Assessment/Plan VTE Prophylaxis Risk score (from Nsg)>0 risk: 3 SCD applied (from Ns): No SCD contraindicated: low risk/ambulating Pharmacological prophylaxis: heparin Lines/Catheters IV Catheter Type (from Nrsg): PICC Line Central line still needed: Yes Urinary Cath still in place: No Assessment/Plan Assessment/Plan 53 yo man with hypertension, diabetes mellitus type 2, dyslipidemia, seizure disorder, depression, alcoholism, and right foot osteomyelitis who presents with worsening fatigue, fall, lumbar compression fracture, and hyperkalemia #Hyperkalemia - Patient had this same unusual hyperkalemia last admission out of proportion to renal failure - Not on ACEi, ARB, spironolactone, or other potassium-sparing drugs. - Acute medical management with kayexalate - Dr. Hopkins consulted. #Lumbar compression fracture - Pain adequately controlled on MS Contin with [place] for breakthrough. - Peripheral neuro exam intact, no concern for cord compression on physical exam or imaging. - Walking with PT. #Fatigue #Frequent falls - Patient denies loss of consciousness or seizure-like activity. - May be due to chronic hyperkalemia. - carbapenem antibiotics may also dizziness and orthostatic hypotension. Patient said these symptoms started around the same time. However the patient is nearing the end of his 4 week course (05/25-06/21) so may be better to just finish the course. - PT as above. #Osteomyelitis - Continue ertapenem (05/25-06/21) #Diabetes - Glargine 10 - Insulin sliding scale - Hold oral meds #Seizure disorder - Continue home phenytoin and carbamazepine DVT: SCDs GI: None Dispo: Patient declines SNF, has caregiver at home. Will finish course of IV antibiotics on Friday; afterwards podiatry may do skin graft. Result Diagram: 06/20/18 0450 06/20/18 045 Subjective 24 Hr Interval Summary Free Text/Dictation No acute overnight events. Patient feeling well. Exam/Review of Systems Exam Vitals Vital Signs Date Temp Pulse Resp B/P (MAP) Pulse Ox O2 O2 Flow FiO2 Time Delivery Rate 06/21/18 97.9 71 18 142/71 97 Room Air 08:41 (94) Intake and Output 06/20/18 06/20/18 06/21/18 1515:00 23:00 07:00 IntakeIntake Total 1320 ml 870 ml OutputOutput Total 800 ml BalanceBalance 520 ml 870 ml Exam Gen: Well appearing man lying in bed, no acute distress. Eyes: PERRL, no icterus HEENT: Moist mucous membranes, clear oropharynx Neck: Supple, full ROM, nontender Card: Regular rate and rhythm, no murmurs Pulm: Clear to auscultation bilaterally Abd: Slightly distended and tympanic, soft, nontender. Back: Midline spine tenderness around T12-L1. Ext: R foot bandaged. No edema. Results Results 24hrs Laboratory Tests Test 06/20/18 12:34 06/20/18 17:26 06/20/18 20:40 06/21/18 02:52 Bedside Glucose 254 H 153 287 H 105 Test 06/21/18 08:37 Bedside Glucose 110 Medications Medication Current Medications IV Flush (NS 3 ml) 3 ml PER PROTOCOL IV ; Start 06/15/18 at 16:00 Heparin Sodium (Porcine) (Heparin (5000 Units/1ml)) 5,000 unit Q8 SC Last administered on 06/21/18at 06:19; Admin Dose 5,000 UNIT; Start 06/15/18 at 22:00 Ertapenem 1 gm/ Sodium Chloride 100 ml @ 200 mls/hr Q24H IVPB Last administered on 06/20/18at 17:20; Admin Dose 200 MLS/HR; Start 06/15/18 at 17:00 Acetaminophen/ Hydrocodone Bitart ([place] (10/325)) 1 tab Q4H PRN PO lower back pain Last administered on 06/21/18at 08:39; Admin Dose 1 TAB; Start 06/15/18 at 16:30 Diagnostic Test (Pha) (Accu-Chek) 1 ea 02 XX ; Start 06/16/18 at 02:00 Insulin Glargine (Lantus) 10 units DAILY@2000 SC Last administered on 06/20/18at 20:43; Admin Dose 10 UNITS; Start 06/15/18 at 20:00 Insulin Aspart (Novolog Insulin Pen) NOVOLOG *MODERATE* ALGORITHM WITH MEALS BEDTIME SC Last administered on 06/20/18at 20:42; Admin Dose 3 UNIT; Start 06/15/18 at 17:55 Aspirin (Halfprin) 81 mg DAILY PO Last administered on 06/21/18 08:34; Admin Dose 81 MG; Start 06/16/18 at 09:00 Atorvastatin Calcium (Lipitor) 40 mg HS PO Last administered on 06/20/18 20:37; Admin Dose 40 MG; Start 06/15/18 at 21:00 Carbamazepine (Tegretol Xr) 200 mg Q12 PO Last administered on 06/21/18 08:26; Admin Dose 200 MG; Start 06/15/18 at 21:00 Fluoxetine HCl (Prozac) 40 mg DAILY PO Last administered on 06/21/18 08:33; Admin Dose 40 MG; Start 06/16/18 at 09:00 Folic Acid (Folic Acid) 1 mg DAILY PO Last administered on 06/21/18 08:32; Admin Dose 1 MG; Start 06/16/18 at 09:00 Hydrochlorothiazide (Hydrochlorothiazide) 12.5 mg DAILY PO Last administered on 06/21/18 08:38; Admin Dose 12.5 MG; Start 06/16/18 at 09:00 Tamsulosin HCl (Flomax) 0.4 mg HS PO Last administered on 06/20/18 20:37; Admin Dose 0.4 MG; Start 06/15/18 at 21:00 Thiamine HCl (Vitamin B1) 100 mg DAILY PO Last administered on 06/21/18 08:33; Admin Dose 100 MG; Start 06/16/18 at 09:00 Miscellaneous Information 1 ea NOTE XX ; Start 06/15/18 at 16:30 Glucose (Glutose) 15 gm Q15M PRN PO DECREASED GLUCOSE Last administered on 06/16/18at 01:15; Admin Dose 15 GM; Start 06/15/18 at 16:30 Glucose (Glutose) 22.5 gm Q15M PRN PO DECREASED GLUCOSE; Start 06/15/18 at 16:30 Dextrose (D50w Syringe) 25 ml Q15M PRN IV DECREASED GLUCOSE; Start 06/15/18 at 16:30 Dextrose (D50w Syringe) 50 ml Q15M PRN IV DECREASED GLUCOSE; Start 06/15/18 at 16:30 Glucagon (Glucagen) 1 mg Q15M PRN IM DECREASED GLUCOSE; Start 06/15/18 at 16:30 Glucose (Glutose) 15 gm Q15M PRN BUCCAL DECREASED GLUCOSE; Start 06/15/18 at 16:30 Morphine Sulfate (Ms Contin (Er)) 15 mg BID PO Last administered on 06/21/18at 08:34; Admin Dose 15 MG; Start 06/16/18 at 11:00 Phenytoin (Dilantin) 100 mg BID PO Last administered on 06/21/18at 08:40; Admin Dose 100 MG; Start 06/20/18 at 06:00 HOLLIS BROWN MD Jun 21, 2018 10:44
[2018-06-21 14:02] VITALS: BP 134/75; PULSE 74; RESP 18
[2018-06-21] MEDS ORDERED: MAGNESIUM SULFATE 1 GM/D5W 100 ML IVPB ONE (15:00)
--- NOTE | 2018-06-21 17:07 | CONS ---
Assessment/Plan Assessment/Plan Assessment/Plan (Daily) - Hypomagnesium- Mag, replaced, am Mag LEVEL 1. Acute hyperkalemia due to HAZEL on CKD II- resolved - renal diet - dietary consult 2. Acute kidney injury on CKD III 3. Acute on chronic back pain due to lumbar spine compression fracture 4. H/O HTN 5. h/O HL 6. H/O hypothyroidism 7. H/o depression 8. H/o seizure disorder 9. R foot osteomyelitis-pending flap 10. Anemia Plan: -NO ACEI/ARB due to acute hyperkalemia; -urine studies including -Urine Na elevated today - 124 -urine prot/cr ratio- wnl today- 0.19 -Urine eosinophils- wnl - 0.0 -CK total elevated today- 389 -Uric acid wnl- 5.3 -Renal US in 2018 showed Possible 1 cm mass in the left posterior wall of the urinary bladder, possibly partially calcified.The kidneys are normal in size, contour, cortical thickness and cortical echogenicity. The right kidney measures 11.2 cm. The left kidney measures 12 cm. IV abx invanz , renally dose all abx and monitor electrolytes Thanks for consultation, will continue to follow up Patient seen in collaboration with Dr Hopkins. [facility] staff Consultation Date/Type/Reason Admit Date/Time Jun 15, 2018 at 1:29 pm Initial Consult Date 06/15/18 Type of Consult NEPHROLOGY Reason for Consultation [id number] Requesting Provider: HOLLIS BROWN MD Date/Time of Note DATE: 06/21/18 TIME: 17:05 Detailed Summary Eyes: no complaints ENT: no complaints Respiratory: no complaints Cardiovascular: no complaints Gastrointestinal: no complaints Genitourinary: no complaints Musculoskeletal: bone/joint pain, restricted range of motion Skin: other Neurologic: no complaints Psychological: nl mood/affect Immunologic: no complaints Exam/Review of Systems Exam Vitals Vital Signs Date Temp Pulse Resp B/P (MAP) Pulse Ox O2 O2 Flow FiO2 Time Delivery Rate 06/21/18 98.5 74 18 134/75 99 Room Air 14:02 (94) Intake and Output 06/20/18 06/20/18 06/21/18 1515:00 23:00 07:00 IntakeIntake Total 1320 ml 870 ml OutputOutput Total 800 ml BalanceBalance 520 ml 870 ml Constitutional: alert, oriented, well developed Psych: nl mood/affect Head: normocephalic Eyes: nl lids, nl sclera ENMT: nl external ears & nose Neck: non-tender Respiratory: clear to auscultation Cardiovascular: nl pulses, other (s1s2) Gastrointestinal: soft, non-tender Musculoskeletal: joint tenderness, range of motion Extremities: edema (right foot ) Neurological: nl speech Skin: other (right foot ) Lymph: nontender Results Result Diagram: 06/20/18 0450 06/20/18 0450 Results 24hrs Laboratory Tests Test 06/20/18 17:26 06/20/18 20:40 06/21/18 02:52 06/21/18 08:37 Bedside Glucose 153 287 H 105 110 Test 06/21/18 10:59 06/21/18 13:02 Phenytoin (Dilantin) 12.1 Level Bedside Glucose 142 Medications Medication Current Medications IV Flush (NS 3 ml) 3 ml PER PROTOCOL IV ; Start 06/15/18 at 16:00 Heparin Sodium (Porcine) (Heparin (5000 Units/1ml)) 5,000 unit Q8 SC Last administered on 06/21/18at 13:13; Admin Dose 5,000 UNIT; Start 06/15/18 at 22:00 Ertapenem 1 gm/ Sodium Chloride 100 ml @ 200 mls/hr Q24H IVPB Last administered on 06/20/18 17:20; Admin Dose 200 MLS/HR; Start 06/15/18 at 17:00 Acetaminophen/ Hydrocodone Bitart ([place] (10/325)) 1 tab Q4H PRN PO lower back pain Last administered on 06/21/18at 13:17; Admin Dose 1 TAB; Start 06/15/18 at 16:30 Diagnostic Test (Pha) (Accu-Chek) 1 ea 02 XX ; Start 06/16/18 at 02:00 Insulin Glargine (Lantus) 10 units DAILY@2000 SC Last administered on 06/20/18 20:43; Admin Dose 10 UNITS; Start 06/15/18 at 20:00 Insulin Aspart (Novolog Insulin Pen) NOVOLOG *MODERATE* ALGORITHM WITH MEALS BEDTIME SC Last administered on 06/21/18 13:12; Admin Dose 2 UNIT; Start 06/15/18 at 17:55 Aspirin (Halfprin) 81 mg DAILY PO Last administered on 06/21/18 08:34; Admin Dose 81 MG; Start 06/16/18 at 09:00 Atorvastatin Calcium (Lipitor) 40 mg HS PO Last administered on 06/20/18 20:37; Admin Dose 40 MG; Start 06/15/18 at 21:00 Carbamazepine (Tegretol Xr) 200 mg Q12 PO Last administered on 06/21/18 08:26; Admin Dose 200 MG; Start 06/15/18 at 21:00 Fluoxetine HCl (Prozac) 40 mg DAILY PO Last administered on 06/21/18 08:33; Admin Dose 40 MG; Start 06/16/18 at 09:00 Folic Acid (Folic Acid) 1 mg DAILY PO Last administered on 06/21/18 08:32; Admin Dose 1 MG; Start 06/16/18 at 09:00 Hydrochlorothiazide (Hydrochlorothiazide) 12.5 mg DAILY PO Last administered on 06/21/18 08:38; Admin Dose 12.5 MG; Start 06/16/18 at 09:00 Tamsulosin HCl (Flomax) 0.4 mg HS PO Last administered on 06/20/18 20:37; Admin Dose 0.4 MG; Start 06/15/18 at 21:00 Thiamine HCl (Vitamin B1) 100 mg DAILY PO Last administered on 06/21/18 08:33; Admin Dose 100 MG; Start 06/16/18 at 09:00 Miscellaneous Information 1 ea NOTE XX ; Start 06/15/18 at 16:30 Glucose (Glutose) 15 gm Q15M PRN PO DECREASED GLUCOSE Last administered on 06/16/18at 01:15; Admin Dose 15 GM; Start 06/15/18 at 16:30 Glucose (Glutose) 22.5 gm Q15M PRN PO DECREASED GLUCOSE; Start 06/15/18 at 16:30 Dextrose (D50w Syringe) 25 ml Q15M PRN IV DECREASED GLUCOSE; Start 06/15/18 at 16:30 Dextrose (D50w Syringe) 50 ml Q15M PRN IV DECREASED GLUCOSE; Start 06/15/18 at 16:30 Glucagon (Glucagen) 1 mg Q15M PRN IM DECREASED GLUCOSE; Start 06/15/18 at 16:30 Glucose (Glutose) 15 gm Q15M PRN BUCCAL DECREASED GLUCOSE; Start 06/15/18 at 16:30 Morphine Sulfate (Ms Contin (Er)) 15 mg BID PO Last administered on 06/21/18at 08:34; Admin Dose 15 MG; Start 06/16/18 at 11:00 Phenytoin (Dilantin) 100 mg BID PO Last administered on 06/21/18at 08:40; Admin Dose 100 MG; Start 06/20/18 at 06:00 SITA GAY Jun 21, 2018 17:07
[2018-06-21] MEDS: ERTAPENEM SODIUM 1 GM in SOD CHLORIDE 0.9% 100 ML IVPB SCH (17:50)
[2018-06-21 19:37] VITALS: BP 136/74; PULSE 82; RESP 18
[2018-06-21] MEDS: ATORVASTATIN 40 MG TAB PO SCH (21:20)
[2018-06-21] MEDS: TAMSULOSIN (SR) 0.4 MG CAP PO SCH (21:20)
[2018-06-21] MEDS: INSULIN GLARGINE [LANTus] (100 UNITS/ML) SYG SC SCH (21:22)
[2018-06-22 01:39] VITALS: BP 113/70; PULSE 76; RESP 16
[2018-06-22] MEDS: ACCU-CHEK XX SCH (01:45)
[2018-06-22] MEDS: HEPARIN 5,000 UNIT/1 ML VIAL SC SCH ×3 (05:31→21:01)
[2018-06-22] MEDS: INSULIN ASPART [NOVOLOG] 3 ML PEN SC SCH ×4 (07:50→20:59)
[2018-06-22 07:56] VITALS: BP 154/78; PULSE 71; RESP 18
[2018-06-22] MEDS: morphine (ER) 15 MG TAB PO SCH ×2 (10:05→20:46)
[2018-06-22] MEDS: carBAMAZepine (XR) 200 MG TABSR PO SCH ×2 (10:05→20:45)
[2018-06-22] MEDS: THIAMINE 100 MG TAB PO SCH (10:06)
[2018-06-22] MEDS: PHENYTOIN 100 MG CAP PO SCH ×2 (10:06→20:46)
[2018-06-22] MEDS: FOLIC ACID 1 MG TAB PO SCH (10:06)
[2018-06-22] MEDS: HYDROCHLOROTHIAZIDE 12.5 MG CAP PO SCH (10:06)
[2018-06-22] MEDS: ASPIRIN (EC) 81 MG TAB PO SCH (10:06)
[2018-06-22] MEDS: FLUOXETINE 20 MG CAP PO SCH (10:06)
[2018-06-22 14:00] VITALS: BP 135/79; PULSE 79; RESP 18
--- NOTE | 2018-06-22 14:34 | PN ---
Date/Time of Note Date/Time of Note DATE: 06/22/18 TIME: 14:25 Assessment/Plan VTE Prophylaxis Risk score (from Nsg)>0 risk: 4 SCD applied (from Ns): No SCD contraindicated: other Pharmacological prophylaxis: heparin Lines/Catheters IV Catheter Type (from Nrsg): PICC Line Central line still needed: Yes Urinary Cath still in place: No Assessment/Plan Hospital Course S: Patient completed treatment for the osteomyelitis with the last dose of IV antibiotics given yesterday. No acute events overnight. O: VS - see below PE: Gen: lying in bed, slightly lethargic but answers questions appropriately, no acute distress. Eyes: PERRL, no icterus HEENT: Moist mucous membranes, clear oropharynx Neck: Supple, full ROM, nontender Card: Regular rate and rhythm, no murmurs Pulm: Clear to auscultation bilaterally Abd: Slightly distended and tympanic, soft, nontender. Back: Midline spine tenderness around T12-L1. Ext: R foot bandaged. No edema. Assessment/Plan: 53 yo man with hypertension, diabetes mellitus type 2, dyslipidemia, seizure disorder, depression, alcoholism, and right foot osteomyelitis who presents with worsening fatigue, fall, lumbar compression fracture, and hyperkalemia #Hyperkalemia-resolved now, patient had this same unusual hyperkalemia last admission out of proportion to renal failure- Not on ACEi, ARB, spironolactone, or other potassium-sparing drugs. - Monitor, if necessary continue acute medical management with kayexalate - Dr. Hopkins consulted renal team as well, follow-up their recommendations #Lumbar compression fracture- Pain adequately controlled on MS Contin with Kinta for breakthrough- Peripheral neuro exam intact, no concern for cord compression on physical exam or imaging- Walking with PT. -Continue pain control medications, walking with assistance and front wheel walker, PT while in-house #Frequent falls/Fatigue- May be due to chronic hyperkalemia? Patient denies loss of consciousness or seizure-like activity- carbapenem antibiotics may also dizziness and orthostatic hypotension. Patient said these symptoms started around the same time. However again the patient completed his 4-week course of antibiotics yesterday. -Monitor, continue PT as above. #Osteomyelitis-status post treatment with IV ertapenem (05/25-06/21) -Monitor for now #Diabetes: Sugars are stable. A1c 6.9 -Continue insulin glargine 10, Insulin sliding scale - Holding oral meds #Seizure disorder - Continue home phenytoin and carbamazepine DVT: SCDs GI: None Dispo: Patient declines SNF, has caregiver at home. Podiatry considering skin graft later this week, however they stated if patient is medically stable for discharge they could arrange this surgery as outpatient. We will try to set up home wound needs and care via case management. Result Diagram: 06/22/1813 06/22/18512 Results 24hrs Laboratory Tests Test 06/21/18 17:30 06/21/18 21:18 06/22/18 01:00 06/22/18 05:13 Bedside Glucose 164 267 H 88 White Blood Count 6.1 Red Blood Count 3.38 L Hemoglobin 9.3 L Hematocrit 29.0 L Mean Corpuscular 85.8 Volume Mean Corpuscular 27.5 L Hemoglobin Mean Corpuscular 32.1 Hemoglobin Concent Red Cell 12.9 Distribution Width Platelet Count 350 Mean Platelet Volume 10.4 Immature 0.500 H Granulocytes % Neutrophils % 61.1 Lymphocytes % 21.1 Monocytes % 9.5 Eosinophils % 7.0 Basophils % 0.8 Nucleated Red Blood 0.0 Cells % Immature 0.030 Granulocytes # Neutrophils # 3.7 Lymphocytes # 1.3 Monocytes # 0.6 Eosinophils # 0.4 Basophils # 0.1 Nucleated Red Blood 0.0 Cells # Sodium Level 139 Potassium Level 4.7 Chloride Level 103 Carbon Dioxide Level 26 Anion Gap 10 Blood Urea Nitrogen 37 H Creatinine 1.52 H Est Glomerular 48 L Filtrat Rate mL/min Glucose Level 90 Calcium Level 10.3 H Phosphorus Level 5.2 H Magnesium Level 2.0 Test 06/22/18 08:20 06/22/18 12:47 Bedside Glucose 99 220 Exam/Review of Systems Exam Vitals Vital Signs Date Temp Pulse Resp B/P (MAP) Pulse Ox O2 O2 Flow FiO2 Time Delivery Rate 06/22/18 97.9 71 18 154/78 91 07:56 (103) 06/22/18 Room Air 01:39 Intake and Output 06/21/18 06/21/18 06/22/18 1414:59 22:59 06:59 IntakeIntake Total 100 ml 240 ml OutputOutput Total 725 ml 600 ml 1150 ml BalanceBalance -725 ml -500 ml -910 ml Results Results 24hrs Laboratory Tests Test 06/21/18 17:30 06/21/18 21:18 06/22/18 01:00 06/22/18 05:13 Bedside Glucose 164 267 H 88 White Blood Count 6.1 Red Blood Count 3.38 L Hemoglobin 9.3 L Hematocrit 29.0 L Mean Corpuscular 85.8 Volume Mean Corpuscular 27.5 L Hemoglobin Mean Corpuscular 32.1 Hemoglobin Concent Red Cell 12.9 Distribution Width Platelet Count 350 Mean Platelet Volume 10.4 Immature 0.500 H Granulocytes % Neutrophils % 61.1 Lymphocytes % 21.1 Monocytes % 9.5 Eosinophils % 7.0 Basophils % 0.8 Nucleated Red Blood 0.0 Cells % Immature 0.030 Granulocytes # Neutrophils # 3.7 Lymphocytes # 1.3 Monocytes # 0.6 Eosinophils # 0.4 Basophils # 0.1 Nucleated Red Blood 0.0 Cells # Sodium Level 139 Potassium Level 4.7 Chloride Level 103 Carbon Dioxide Level 26 Anion Gap 10 Blood Urea Nitrogen 37 H Creatinine 1.52 H Est Glomerular 48 L Filtrat Rate mL/min Glucose Level 90 Calcium Level 10.3 H Phosphorus Level 5.2 H Magnesium Level 2.0 Test 06/22/18 08:20 06/22/18 12:47 Bedside Glucose 99 220 Medications Medication Current Medications IV Flush (NS 3 ml) 3 ml PER PROTOCOL IV ; Start 06/15/18 at 16:00 Heparin Sodium (Porcine) (Heparin (5000 Units/1ml)) 5,000 unit Q8 SC Last administered on 06/22/18at 13:20; Admin Dose 5,000 UNIT; Start 06/15/18 at 22:00 Acetaminophen/ Hydrocodone Bitart ([place] (10/325)) 1 tab Q4H PRN PO lower back pain Last administered on 06/21/18at 21:58; Admin Dose 1 TAB; Start 06/15/18 at 16:30 Diagnostic Test (Pha) (Accu-Chek) 1 ea 02 XX Last administered on 06/22/18at 01:45; Admin Dose 1 EA; Start 06/16/18 at 02:00 Insulin Glargine (Lantus) 10 units DAILY@2000 SC Last administered on 06/21/18at 21:22; Admin Dose 10 UNITS; Start 06/15/18 at 20:00 Insulin Aspart (Novolog Insulin Pen) NOVOLOG *MODERATE* ALGORITHM WITH MEALS BEDTIME SC Last administered on 06/22/18 13:21; Admin Dose 4 UNIT; Start 06/15/18 at 17:55 Aspirin (Halfprin) 81 mg DAILY PO Last administered on 06/22/18 10:06; Admin Dose 81 MG; Start 06/16/18 at 09:00 Atorvastatin Calcium (Lipitor) 40 mg HS PO Last administered on 06/21/18 21:20; Admin Dose 40 MG; Start 06/15/18 at 21:00 Carbamazepine (Tegretol Xr) 200 mg Q12 PO Last administered on 06/22/18 10:05; Admin Dose 200 MG; Start 06/15/18 at 21:00 Fluoxetine HCl (Prozac) 40 mg DAILY PO Last administered on 06/22/18 10:06; Admin Dose 40 MG; Start 06/16/18 at 09:00 Folic Acid (Folic Acid) 1 mg DAILY PO Last administered on 06/22/18 10:06; Admin Dose 1 MG; Start 06/16/18 at 09:00 Hydrochlorothiazide (Hydrochlorothiazide) 12.5 mg DAILY PO Last administered on 06/22/18 10:06; Admin Dose 12.5 MG; Start 06/16/18 at 09:00 Tamsulosin HCl (Flomax) 0.4 mg HS PO Last administered on 06/21/18 21:20; Admin Dose 0.4 MG; Start 06/15/18 at 21:00 Thiamine HCl (Vitamin B1) 100 mg DAILY PO Last administered on 06/22/18 10:06; Admin Dose 100 MG; Start 06/16/18 at 09:00 Miscellaneous Information 1 ea NOTE XX ; Start 06/15/18 at 16:30 Glucose (Glutose) 15 gm Q15M PRN PO DECREASED GLUCOSE Last administered on 06/16/18at 01:15; Admin Dose 15 GM; Start 06/15/18 at 16:30 Glucose (Glutose) 22.5 gm Q15M PRN PO DECREASED GLUCOSE; Start 06/15/18 at 16:30 Dextrose (D50w Syringe) 25 ml Q15M PRN IV DECREASED GLUCOSE; Start 06/15/18 at 16:30 Dextrose (D50w Syringe) 50 ml Q15M PRN IV DECREASED GLUCOSE; Start 06/15/18 at 16:30 Glucagon (Glucagen) 1 mg Q15M PRN IM DECREASED GLUCOSE; Start 06/15/18 at 16:30 Glucose (Glutose) 15 gm Q15M PRN BUCCAL DECREASED GLUCOSE; Start 06/15/18 at 16:30 Morphine Sulfate (Ms Contin (Er)) 15 mg BID PO Last administered on 06/22/18at 10:05; Admin Dose 15 MG; Start 06/16/18 at 11:00 Phenytoin (Dilantin) 100 mg BID PO Last administered on 06/22/18at 10:06; Admin Dose 100 MG; Start 06/20/18 at 06:00 BEVERLY DUBON Jun 22, 2018 14:34
--- NOTE | 2018-06-22 18:05 | CONS ---
Assessment/Plan Assessment/Plan Assessment/Plan (Daily) 1. Acute hyperkalemia due to HAZEL on CKD II- resolved 2. Acute kidney injury on CKD III 3. Acute on chronic back pain due to lumbar spine compression fracture 4. H/O HTN 5. h/O HL 6. H/O hypothyroidism 7. H/o depression 8. H/o seizure disorder 9. R foot osteomyelitis-pending flap 10. Anemia of CKD 11. Hypomagnesemia Plan: -NO ACEI/ARB due to acute hyperkalemia; HCTZ 12.5 mg po daily -Renal US in 2018 showed Possible 1 cm mass in the left posterior wall of the urinary bladder, possibly partially calcified.The kidneys are normal in size, contour, cortical thickness and cortical echogenicity. The right kidney measures 11.2 cm. The left kidney measures 12 cm. IV abx invanz- plan is to stop today , renally dose all abx and monitor electrolytes will follow up Consultation Date/Type/Reason Admit Date/Time Jun 15, 2018 at 13:29 Initial Consult Date 06/15/18 Type of Consult NEPHROLOGY Requesting Provider: HOLLIS BROWN MD Date/Time of Note DATE: 06/22/18 TIME: 18:05 Exam/Review of Systems Exam Vitals Vital Signs Date Temp Pulse Resp B/P (MAP) Pulse Ox O2 O2 Flow FiO2 Time Delivery Rate 06/22/18 98.5 79 18 135/79 96 14:00 (97) 06/22/18 Room Air 01:39 Intake and Output 06/21/18 06/21/18 06/22/18 1515:00 23:00 07:00 IntakeIntake Total 100 ml 240 ml OutputOutput Total 725 ml 600 ml 1150 ml BalanceBalance -725 ml -500 ml -910 ml Exam Constitutional: alert, oriented, well developed Respiratory: clear to auscultation Cardiovascular: nl pulses, other (s1s2) Gastrointestinal: soft, non-tender Musculoskeletal: joint tenderness, range of motion Extremities: edema (right foot ) Neurological: nl speech Skin: other (right foot ) Lymph: nontender Results Result Diagram: 06/22/18 0513 06/22/18 0513 Results 24hrs Laboratory Tests Test 06/21/18 21:18 06/22/18 01:00 06/22/18 05:13 06/22/18 08:20 Bedside Glucose 267 H 88 99 White Blood Count 6.1 Red Blood Count 3.38 L Hemoglobin 9.3 L Hematocrit 29.0 L Mean Corpuscular 85.8 Volume Mean Corpuscular 27.5 L Hemoglobin Mean Corpuscular 32.1 Hemoglobin Concent Red Cell 12.9 Distribution Width Platelet Count 350 Mean Platelet Volume 10.4 Immature 0.500 H Granulocytes % Neutrophils % 61.1 Lymphocytes % 21.1 Monocytes % 9.5 Eosinophils % 7.0 Basophils % 0.8 Nucleated Red Blood 0.0 Cells % Immature 0.030 Granulocytes # Neutrophils # 3.7 Lymphocytes # 1.3 Monocytes # 0.6 Eosinophils # 0.4 Basophils # 0.1 Nucleated Red Blood 0.0 Cells # Sodium Level 139 Potassium Level 4.7 Chloride Level 103 Carbon Dioxide Level 26 Anion Gap 10 Blood Urea Nitrogen 37 H Creatinine 1.52 H Est Glomerular 48 L Filtrat Rate mL/min Glucose Level 90 Calcium Level 10.3 H Phosphorus Level 5.2 H Magnesium Level 2.0 Test 06/22/18 12:47 06/22/18 17:53 Bedside Glucose 220 128 Medications Medication Current Medications IV Flush (NS 3 ml) 3 ml PER PROTOCOL IV ; Start 06/15/18 at 16:00 Heparin Sodium (Porcine) (Heparin (5000 Units/1ml)) 5,000 unit Q8 SC Last administered on 06/22/18at 13:20; Admin Dose 5,000 UNIT; Start 06/15/18 at 22:00 Acetaminophen/ Hydrocodone Bitart ([place] (10/325)) 1 tab Q4H PRN PO lower back pain Last administered on 06/21/18at 21:58; Admin Dose 1 TAB; Start 06/15/18 at 16:30 Diagnostic Test (Pha) (Accu-Chek) 1 ea 02 XX Last administered on 06/22/18at 01:45; Admin Dose 1 EA; Start 06/16/18 at 02:00 Insulin Glargine (Lantus) 10 units DAILY@2000 SC Last administered on 06/21/18at 21:22; Admin Dose 10 UNITS; Start 06/15/18 at 20:00 Insulin Aspart (Novolog Insulin Pen) NOVOLOG *MODERATE* ALGORITHM WITH MEALS BEDTIME SC Last administered on 06/22/18at 13:21; Admin Dose 4 UNIT; Start 06/15/18 at 17:55 Aspirin (Halfprin) 81 mg DAILY PO Last administered on 06/22/18 10:06; Admin Dose 81 MG; Start 06/16/18 at 09:00 Atorvastatin Calcium (Lipitor) 40 mg HS PO Last administered on 06/21/18at 21:20; Admin Dose 40 MG; Start 06/15/18 at 21:00 Carbamazepine (Tegretol Xr) 200 mg Q12 PO Last administered on 06/22/18 10:05; Admin Dose 200 MG; Start 06/15/18 at 21:00 Fluoxetine HCl (Prozac) 40 mg DAILY PO Last administered on 06/22/18 10:06; Admin Dose 40 MG; Start 06/16/18 at 09:00 Folic Acid (Folic Acid) 1 mg DAILY PO Last administered on 06/22/18 10:06; Admin Dose 1 MG; Start 06/16/18 at 09:00 Hydrochlorothiazide (Hydrochlorothiazide) 12.5 mg DAILY PO Last administered on 06/22/18 10:06; Admin Dose 12.5 MG; Start 06/16/18 at 09:00 Tamsulosin HCl (Flomax) 0.4 mg HS PO Last administered on 06/21/18 21:20; Admin Dose 0.4 MG; Start 06/15/18 at 21:00 Thiamine HCl (Vitamin B1) 100 mg DAILY PO Last administered on 06/22/18 10:06; Admin Dose 100 MG; Start 06/16/18 at 09:00 Miscellaneous Information 1 ea NOTE XX ; Start 06/15/18 at 16:30 Glucose (Glutose) 15 gm Q15M PRN PO DECREASED GLUCOSE Last administered on 06/16/18at 01:15; Admin Dose 15 GM; Start 06/15/18 at 16:30 Glucose (Glutose) 22.5 gm Q15M PRN PO DECREASED GLUCOSE; Start 06/15/18 at 16:30 Dextrose (D50w Syringe) 25 ml Q15M PRN IV DECREASED GLUCOSE; Start 06/15/18 at 16:30 Dextrose (D50w Syringe) 50 ml Q15M PRN IV DECREASED GLUCOSE; Start 06/15/18 at 16:30 Glucagon (Glucagen) 1 mg Q15M PRN IM DECREASED GLUCOSE; Start 06/15/18 at 16:30 Glucose (Glutose) 15 gm Q15M PRN BUCCAL DECREASED GLUCOSE; Start 06/15/18 at 16:30 Morphine Sulfate (Ms Contin (Er)) 15 mg BID PO Last administered on 06/22/18at 10:05; Admin Dose 15 MG; Start 06/16/18 at 11:00 Phenytoin (Dilantin) 100 mg BID PO Last administered on 06/22/18at 10:06; Admin Dose 100 MG; Start 06/20/18 at 06:00 BHARATH NARANJO MD Jun 22, 2018 18:05
--- NOTE | 2018-06-22 18:59 | CONS ---
Assessment/Plan Assessment/Plan Assessment/Plan (Daily) R foot diabetic ulcer R foot osteomyelitis DM2 with peripheral neuropathy R foot TMA site Lumbar compression fracture Fatigue Plan Patient will need to be non weight bearing to the right lower extremity. Recommend use of CAM boot and walker. Completed PICC line IV abx. Pain control along with tight glycemic monitoring. Recommended outpatient follow up in wound clinic and will discuss surgical options in the future. Patient stable from podiatry stand point for discharge. Consultation Date/Type/Reason Admit Date/Time Jun 15, 2018 at 13:29 Initial Consult Date 06/15/18 Requesting Provider: HOLLIS BROWN MD Date/Time of Note DATE: 06/22/18 TIME: 18:57 24 HR Interval Summary Free Text/Dictation No acute events overnight. Exam/Review of Systems Exam Vitals Vital Signs Date Temp Pulse Resp B/P (MAP) Pulse Ox O2 O2 Flow FiO2 Time Delivery Rate 06/22/18 98.5 79 18 135/79 96 14:00 (97) 06/22/18 Room Air 01:39 Intake and Output 06/21/18 06/21/18 06/22/18 1515:00 23:00 07:00 IntakeIntake Total 100 ml 240 ml OutputOutput Total 725 ml 600 ml 1150 ml BalanceBalance -725 ml -500 ml -910 ml Exam Palpable pedal pulses Right foot TMA site absent protective sensations Right plantar granular ulcer 2.6 x 2.1 x 0.2cm, does not probe to bone, no purulence, no proximal streaking Muscle strength 5/5 in all compartments of the foot No pain on palpation to wound site. Left hallux HPK lesion noted. Results Result Diagram: 06/22/18 0513 06/22/18 0513 Results 24hrs Laboratory Tests Test 06/21/18 21:18 06/22/18 01:00 06/22/18 05:13 06/22/18 08:20 Bedside Glucose 267 H 88 99 White Blood Count 6.1 Red Blood Count 3.38 L Hemoglobin 9.3 L Hematocrit 29.0 L Mean Corpuscular 85.8 Volume Mean Corpuscular 27.5 L Hemoglobin Mean Corpuscular 32.1 Hemoglobin Concent Red Cell 12.9 Distribution Width Platelet Count 350 Mean Platelet Volume 10.4 Immature 0.500 H Granulocytes % Neutrophils % 61.1 Lymphocytes % 21.1 Monocytes % 9.5 Eosinophils % 7.0 Basophils % 0.8 Nucleated Red Blood 0.0 Cells % Immature 0.030 Granulocytes # Neutrophils # 3.7 Lymphocytes # 1.3 Monocytes # 0.6 Eosinophils # 0.4 Basophils # 0.1 Nucleated Red Blood 0.0 Cells # Sodium Level 139 Potassium Level 4.7 Chloride Level 103 Carbon Dioxide Level 26 Anion Gap 10 Blood Urea Nitrogen 37 H Creatinine 1.52 H Est Glomerular 48 L Filtrat Rate mL/min Glucose Level 90 Calcium Level 10.3 H Phosphorus Level 5.2 H Magnesium Level 2.0 Test 06/22/18 12:47 06/22/18 17:53 Bedside Glucose 220 128 Medications Medication Current Medications IV Flush (NS 3 ml) 3 ml PER PROTOCOL IV ; Start 06/15/18 at 16:00 Heparin Sodium (Porcine) (Heparin (5000 Units/1ml)) 5,000 unit Q8 SC Last administered on 06/22/18at 13:20; Admin Dose 5,000 UNIT; Start 06/15/18 at 22:00 Acetaminophen/ Hydrocodone Bitart ([place] (10/325)) 1 tab Q4H PRN PO lower back pain Last administered on 06/21/18at 21:58; Admin Dose 1 TAB; Start 06/15/18 at 16:30 Diagnostic Test (Pha) (Accu-Chek) 1 ea 02 XX Last administered on 06/22/18at 01:45; Admin Dose 1 EA; Start 06/16/18 at 02:00 Insulin Glargine (Lantus) 10 units DAILY@2000 SC Last administered on 06/21/18 21:22; Admin Dose 10 UNITS; Start 06/15/18 at 20:00 Insulin Aspart (Novolog Insulin Pen) NOVOLOG *MODERATE* ALGORITHM WITH MEALS BEDTIME SC Last administered on 06/22/18at 13:21; Admin Dose 4 UNIT; Start 06/15/18 at 17:55 Aspirin (Halfprin) 81 mg DAILY PO Last administered on 06/22/18at 10:06; Admin Dose 81 MG; Start 06/16/18 at 09:00 Atorvastatin Calcium (Lipitor) 40 mg HS PO Last administered on 06/21/18at 21:20; Admin Dose 40 MG; Start 06/15/18 at 21:00 Carbamazepine (Tegretol Xr) 200 mg Q12 PO Last administered on 06/22/18 10:05; Admin Dose 200 MG; Start 06/15/18 at 21:00 Fluoxetine HCl (Prozac) 40 mg DAILY PO Last administered on 06/22/18 10:06; Admin Dose 40 MG; Start 06/16/18 at 09:00 Folic Acid (Folic Acid) 1 mg DAILY PO Last administered on 06/22/18 10:06; Admin Dose 1 MG; Start 06/16/18 at 09:00 Hydrochlorothiazide (Hydrochlorothiazide) 12.5 mg DAILY PO Last administered on 06/22/18 10:06; Admin Dose 12.5 MG; Start 06/16/18 at 09:00 Tamsulosin HCl (Flomax) 0.4 mg HS PO Last administered on 06/21/18 21:20; Admin Dose 0.4 MG; Start 06/15/18 at 21:00 Thiamine HCl (Vitamin B1) 100 mg DAILY PO Last administered on 06/22/18 10:06; Admin Dose 100 MG; Start 06/16/18 at 09:00 Miscellaneous Information 1 ea NOTE XX ; Start 06/15/18 at 16:30 Glucose (Glutose) 15 gm Q15M PRN PO DECREASED GLUCOSE Last administered on 06/16/18 01:15; Admin Dose 15 GM; Start 06/15/18 at 16:30 Glucose (Glutose) 22.5 gm Q15M PRN PO DECREASED GLUCOSE; Start 06/15/18 at 16:30 Dextrose (D50w Syringe) 25 ml Q15M PRN IV DECREASED GLUCOSE; Start 06/15/18 at 16:30 Dextrose (D50w Syringe) 50 ml Q15M PRN IV DECREASED GLUCOSE; Start 06/15/18 at 16:30 Glucagon (Glucagen) 1 mg Q15M PRN IM DECREASED GLUCOSE; Start 06/15/18 at 16:30 Glucose (Glutose) 15 gm Q15M PRN BUCCAL DECREASED GLUCOSE; Start 06/15/18 at 16:30 Morphine Sulfate (Ms Contin (Er)) 15 mg BID PO Last administered on 06/22/18 10:05; Admin Dose 15 MG; Start 06/16/18 at 11:00 Phenytoin (Dilantin) 100 mg BID PO Last administered on 06/22/18 10:06; Admin Dose 100 MG; Start 06/20/18 at 06:00 BRYANT GARCIA DPM Jun 22, 2018 18:59
[2018-06-22 19:46] VITALS: BP 149/84; PULSE 79; RESP 20
[2018-06-22] MEDS: ATORVASTATIN 40 MG TAB PO SCH (20:46)
[2018-06-22] MEDS: TAMSULOSIN (SR) 0.4 MG CAP PO SCH (20:46)
[2018-06-22] MEDS: INSULIN GLARGINE [LANTus] (100 UNITS/ML) SYG SC SCH (20:58)
[2018-06-22] MEDS: HYDROCODONE/APAP (10/325) TAB PO PRN (23:30)
[2018-06-23 01:58] VITALS: BP 108/76; PULSE 65; RESP 16
[2018-06-23] MEDS: ACCU-CHEK XX SCH (02:00)
[2018-06-23] MEDS: HEPARIN 5,000 UNIT/1 ML VIAL SC SCH ×2 (06:16→14:00)
[2018-06-23 07:29] VITALS: BP 147/81; PULSE 78; RESP 18
[2018-06-23] MEDS: INSULIN ASPART [NOVOLOG] 3 ML PEN SC SCH ×2 (07:50→13:02)
[2018-06-23] MEDS: FLUOXETINE 20 MG CAP PO SCH (08:28)
[2018-06-23] MEDS: ASPIRIN (EC) 81 MG TAB PO SCH (08:28)
[2018-06-23] MEDS: HYDROCHLOROTHIAZIDE 12.5 MG CAP PO SCH (08:29)
[2018-06-23] MEDS: PHENYTOIN 100 MG CAP PO SCH (08:30)
[2018-06-23] MEDS: THIAMINE 100 MG TAB PO SCH (08:30)
[2018-06-23] MEDS: carBAMAZepine (XR) 200 MG TABSR PO SCH (08:30)
[2018-06-23] MEDS: FOLIC ACID 1 MG TAB PO SCH (08:33)
[2018-06-23] MEDS: morphine (ER) 15 MG TAB PO SCH (08:38)
--- NOTE | 2018-06-23 11:13 | CONS ---
Assessment/Plan Assessment/Plan Assessment/Plan (Daily) 1. Acute hyperkalemia due to HAZEL on CKD II- resolved 2. Acute kidney injury on CKD III 3. Acute on chronic back pain due to lumbar spine compression fracture 4. H/O HTN 5. h/O HL 6. H/O hypothyroidism 7. H/o depression 8. H/o seizure disorder 9. R foot osteomyelitis-pending flap 10. Anemia of CKD 11. Hypomagnesemia Plan: -NO ACEI/ARB due to acute hyperkalemia; HCTZ 12.5 mg po daily -Renal US in 2018 showed Possible 1 cm mass in the left posterior wall of the urinary bladder, possibly partially calcified.The kidneys are normal in size, contour, cortical thickness and cortical echogenicity. The right kidney measures 11.2 cm. The left kidney measures 12 cm. IV abx invanz- plan is to stop today , renally dose all abx and monitor electrolytes will follow up Consultation Date/Type/Reason Admit Date/Time Jun 15, 2018 at 13:29 Initial Consult Date 06/15/18 Type of Consult NEPHROLOGY Requesting Provider: HOLLIS BROWN MD Date/Time of Note DATE: 06/23/18 TIME: 11:12 Exam/Review of Systems Exam Vitals Vital Signs Date Temp Pulse Resp B/P (MAP) Pulse Ox O2 O2 Flow FiO2 Time Delivery Rate 06/23/18 98.8 78 18 147/81 95 07:29 (103) 06/23/18 Room Air 01:58 Intake and Output 06/22/18 06/22/18 06/23/18 1515:00 23:00 07:00 IntakeIntake Total 600 ml 400 ml 1000 ml OutputOutput Total 600 ml BalanceBalance 600 ml 400 ml 400 ml Exam Constitutional: alert, oriented, well developed Respiratory: clear to auscultation Cardiovascular: nl pulses, other (s1s2) Gastrointestinal: soft, non-tender Musculoskeletal: joint tenderness, range of motion Extremities: edema (right foot ) Neurological: nl speech Skin: other (right foot ) Lymph: nontender Results Result Diagram: 06/23/18 0426 06/23/18 0426 Results 24hrs Laboratory Tests Test 06/22/18 12:47 06/22/18 17:53 06/22/18 20:44 06/23/18 02:12 Bedside Glucose 220 128 196 109 Test 06/23/18 04:26 06/23/18 08:40 White Blood Count 6.0 Red Blood Count 3.21 L Hemoglobin 8.9 L Hematocrit 27.3 L Mean Corpuscular 85.0 Volume Mean Corpuscular 27.7 L Hemoglobin Mean Corpuscular 32.6 Hemoglobin Concent Red Cell 12.7 Distribution Width Platelet Count 350 Mean Platelet Volume 10.3 Immature 0.800 H Granulocytes % Neutrophils % 58.9 Lymphocytes % 22.8 Monocytes % 9.3 Eosinophils % 7.7 H Basophils % 0.5 Nucleated Red Blood 0.0 Cells % Immature 0.050 H Granulocytes # Neutrophils # 3.5 Lymphocytes # 1.4 Monocytes # 0.6 Eosinophils # 0.5 Basophils # 0.0 Nucleated Red Blood 0.0 Cells # Sodium Level 137 Potassium Level 4.2 Chloride Level 100 Carbon Dioxide Level 27 Anion Gap 10 Blood Urea Nitrogen 38 H Creatinine 1.40 H Est Glomerular 53 L Filtrat Rate mL/min Glucose Level 98 Calcium Level 9.9 Bedside Glucose 112 Medications Medication Current Medications IV Flush (NS 3 ml) 3 ml PER PROTOCOL IV ; Start 06/15/18 at 16:00 Heparin Sodium (Porcine) (Heparin (5000 Units/1ml)) 5,000 unit Q8 SC Last administered on 06/23/18at 06:16; Admin Dose 5,000 UNIT; Start 06/15/18 at 22:00 Acetaminophen/ Hydrocodone Bitart ([place] (10/325)) 1 tab Q4H PRN PO lower back pain Last administered on 06/22/18at 23:30; Admin Dose 1 TAB; Start 06/15/18 at 16:30 Diagnostic Test (Pha) (Accu-Chek) 1 ea 02 XX Last administered on 06/22/18at 01:45; Admin Dose 1 EA; Start 06/16/18 at 02:00 Insulin Glargine (Lantus) 10 units DAILY@2000 SC Last administered on 06/22/18 20:58; Admin Dose 10 UNITS; Start 06/15/18 at 20:00 Insulin Aspart (Novolog Insulin Pen) NOVOLOG *MODERATE* ALGORITHM WITH MEALS BEDTIME SC Last administered on 06/22/18at 20:59; Admin Dose 1 UNIT; Start 06/15/18 at 17:55 Aspirin (Halfprin) 81 mg DAILY PO Last administered on 06/23/18 08:28; Admin Dose 81 MG; Start 06/16/18 at 09:00 Atorvastatin Calcium (Lipitor) 40 mg HS PO Last administered on 06/22/18 20:46; Admin Dose 40 MG; Start 06/15/18 at 21:00 Carbamazepine (Tegretol Xr) 200 mg Q12 PO Last administered on 06/23/18 08:30; Admin Dose 200 MG; Start 06/15/18 at 21:00 Fluoxetine HCl (Prozac) 40 mg DAILY PO Last administered on 06/23/18 08:28; Admin Dose 40 MG; Start 06/16/18 at 09:00 Folic Acid (Folic Acid) 1 mg DAILY PO Last administered on 06/23/18 08:33; Admin Dose 1 MG; Start 06/16/18 at 09:00 Hydrochlorothiazide (Hydrochlorothiazide) 12.5 mg DAILY PO Last administered on 06/23/18 08:29; Admin Dose 12.5 MG; Start 06/16/18 at 09:00 Tamsulosin HCl (Flomax) 0.4 mg HS PO Last administered on 06/22/18 20:46; Admin Dose 0.4 MG; Start 06/15/18 at 21:00 Thiamine HCl (Vitamin B1) 100 mg DAILY PO Last administered on 06/23/18 08:30; Admin Dose 100 MG; Start 06/16/18 at 09:00 Miscellaneous Information 1 ea NOTE XX ; Start 06/15/18 at 16:30 Glucose (Glutose) 15 gm Q15M PRN PO DECREASED GLUCOSE Last administered on 06/16/18 01:15; Admin Dose 15 GM; Start 06/15/18 at 16:30 Glucose (Glutose) 22.5 gm Q15M PRN PO DECREASED GLUCOSE; Start 06/15/18 at 16:30 Dextrose (D50w Syringe) 25 ml Q15M PRN IV DECREASED GLUCOSE; Start 06/15/18 at 16:30 Dextrose (D50w Syringe) 50 ml Q15M PRN IV DECREASED GLUCOSE; Start 06/15/18 at 16:30 Glucagon (Glucagen) 1 mg Q15M PRN IM DECREASED GLUCOSE; Start 06/15/18 at 16:30 Glucose (Glutose) 15 gm Q15M PRN BUCCAL DECREASED GLUCOSE; Start 4/15/19 at 16:30 Morphine Sulfate (Ms Contin (Er)) 15 mg BID PO Last administered on 06/23/18at 08:38; Admin Dose 15 MG; Start 06/16/18 at 11:00 Phenytoin (Dilantin) 100 mg BID PO Last administered on 06/23/18at 08:30; Admin Dose 100 MG; Start 06/20/18 at 06:00 BHARATH NARANJO MD Jun 23, 2018 11:12
--- NOTE | 2018-06-23 11:14 | PDOCDIS ---
Discharge Instructions CONDITION [id number] Patient Condition: [id number] Stable HOME CARE INSTRUCTIONS: [id number] Diet Instructions: [id number] Low Fat /Cholesterol ACTIVITY: [id number] Activity Restrictions: [id number] Slowly Increase Activity Rest between Activity Avoid heavy lifting FOLLOW UP/APPOINTMENTS Follow-up Plan Please take your medications as prescribed, see your podiatry doctor in the clinic in the next few days to schedule your out patient surgery that is needed for your lower extremity. Also see her primary care doctor in the clinic in the next 1-2 weeks. BEVERLY DUBON Jun 23, 2018 11:14
[2018-06-23] MEDS ORDERED: MORP15TA3 PO (11:18)
--- NOTE | 2018-06-23 11:27 | DS ---
Date/Time of Note Date/Time of Note DATE: 06/23/18 TIME: 11:21 Discharge Summary Admission/Discharge Info Admit Date/Time Jun 15, 2018 at 13:29 Discharge Date/Time Discharge Diagnosis #Hyperkalemia-resolved now, patient had this same unusual hyperkalemia last a dmission out of proportion to renal failure # Lumbar compression fracture- Pain adequately controlled on MS Contin with [place] for breakthrough- Peripheral neuro exam intact, no concern for cord compression on physical exam or imaging-Walking with PT. #Frequent falls/Fatigue- May be due to chronic hyperkalemia? Now with CAM boot and front wheel walker upon discharge #Osteomyelitis-status post treatment with IV ertapenem (ended on 06/21) #Diabetes: Sugars are stable. A1c 6.9 #Seizure disorder Patient Condition: Stable Hx of Present Illness 53 yo man with diabetes and diabetic foot ulcers currently being treated for osteomyelitis who presents after a fall. He was recently hospitalized here at [facility] (05/21 to 05/28) for osteomyelitis. Discharged with PICC and IV ertapenem which he has been receiving. During that hospitalization he also had HAZEL and significant hyperkalemia. Since discharge he reports severe fatigue and anorexia which he attributes to the antibiotics. He often gets dizzy when trying to stand and he has fallen six times since discharge; always associated with weakness or dizziness, never loss of consciousness, never striking head. Hospitalized at [facility] June 01- after a fall. This time, he was climbing up the stairs when he felt very weak; fell backwards, landed on his butt in a sitting position, then leaned back and his R shoulder struck a child's bicycle training wheel, his back landed flat on the concrete. Again no LOC or head strike. Afterwards he noticed severe lower back pain so he came to the hospital. In the ED he was afebrile, vitals unremarkable. Labs concerning for hyperK to 6.4, HAZEL with Cr 2.18. CT L-spine showed T12 compression fracture with 25% height loss. Hospital Course Patient was admitted and seen by podiatry and renal teams during his hospital stay. His hyperkalemia resolved within the first 24-48 hours of his stay. In addition to that his renal insufficiency improved as his creatinine trended down to close to his baseline levels. Over the course of his hospital stay patient continued and completed IV antibiotics to treat his right foot osteomyelitis and diabetic foot ulcer. Patient was also found on imaging studies with lumbar compression fracture-however pain adequately controlled on MS Contin with [place] for breakthrough-and his peripheral neuro exam was intact, no concern for cord compression on physical exam or imaging. Patient also received CAM boot as recommended by podiatry team to be nonweightbearing on the right lower extremity. He also ambulated with front wheel walker. He ambulated fairly well with that and work with physical therapy to improve his strength. He was able to tolerate diet, labs and vital signs were stable on the day of discharge. Patient recommended to follow-up in the wound clinic with podiatry team as an outpatient to discuss surgical options in the future for his lower extremity including possible skin flap. After getting clearance from the training consultant teams while here in the hospital he will be discharged home today in improved condition. We will confirm he has a caregiver at home to help with his needs and he will go home with the equipment as mentioned above for his lower extremity. See below for full list of discharge medications. Home Meds Active Scripts Morphine Sulfate (Morphine Sulfate ER) 15 Mg Tablet.er, 15 MG PO BID, #30 TAB Prov:BEVERLY DUBON S. 06/23/18 Atorvastatin* (Atorvastatin*) 40 Mg Tablet, 40 MG PO HS, #30 TAB 4 Refills Prov:BEVERLY DUBON S. 05/28/18 Reported Medications Aspirin* (Aspirin* EC) 81 Mg Tablet.dr, 81 MG PO DAILY, TAB 05/31/18 Hydrochlorothiazide* (Hydrochlorothiazide*) 12.5 Mg Tablet, 12.5 MG PO DAILY, #30 TAB 05/21/18 Tamsulosin Hcl* (Tamsulosin Hcl*) 0.4 Mg Cap.er.24h, 0.4 MG PO HS, CAP 05/21/18 Lactobacillus Acidophilus (Probiotic Acidophilus) 1 Each Tablet, 1 EACH PO DAILY, TAB 05/21/18 Sitagliptin* (Januvia*) 100 Mg Tablet, 100 MG PO DAILY, #30 TAB 05/21/18 Phenytoin* Sodium Extended (Dilantin*) 100 Mg Capsule, 100 MG PO TID, CAP 05/21/18 Thiamine* (Vitamin B-1*) 100 Mg Tablet, 100 MG PO DAILY, TAB 05/21/18 Ferrous Sulfate* (Ferrous Sulfate*) 325 Mg Tabec, 325 MG PO DAILY, TAB 05/21/18 Glipizide* (Glipizide*) 10 Mg Tablet, 10 MG PO AC BREAKFAST, TAB 05/21/18 Insulin Glargine,Hum.rec.anlog (Basaglar Kwikpen U-100) 100 Unit/1 Ml Insuln.pen, 9 UNIT SC QHS, EA 03/02/18 Carbamazepine* (Tegretol Xr*) 200 Mg Tab.sr.12h, 200 MG PO Q12, TAB.SA 08/29/17 Folic Acid* (Folic Acid*) 1 Mg Tablet, 1 MG PO DAILY, TAB 08/29/17 Fluoxetine Hcl* (Prozac*) 40 Mg Capsule, 40 MG PO DAILY, CAP 08/29/17 Discontinued Reported Medications Hydrocodone/Acetaminophen ([place] 10-325 Tablet) 1 Each Tablet, 1 EACH PO BID, TAB 05/21/18 Gabapentin* (Gabapentin*) 100 Mg Capsule, 200 MG PO BID, #180 CAP 03/02/18 Follow-up Plan Please take your medications as prescribed, see your podiatry doctor in the clinic in the next few days to schedule your out patient surgery that is needed for your lower extremity. Also see her primary care doctor in the clinic in the next 1-2 weeks. Primary Care Provider Care Physician No Primary Time spent on discharge: > 30 minutes Pending Labs Laboratory Tests Test 06/22/18 12:47 06/22/18 17:53 06/22/18 20:44 06/23/18 02:12 Bedside 220 128 196 109 Glucose mg/dL (70-220) mg/dL (70-220) mg/dL (70-220) mg/dL (70-220) Test 06/23/18 04:26 06/23/18 08:40 White Blood 6.0 Count 10^3/ul (4.8-10 .8) Red Blood 3.21 Count 10^6/ul (4.70-6 .10) Hemoglobin 8.9 g/dl (14.0-18.0 ) Hematocrit 27.3 % (42.0-52.0) Mean 85.0 Corpuscular fl (82.0-101.0) Volume Mean 27.7 Corpuscular pg (29.0-33.0) Hemoglobin Mean 32.6 Corpuscular g/dl (32.0-37.0 Hemoglobin Conc ) ent Red Cell 12.7 Distribution % (11.5-14.5) Width Platelet Count 350 10^3/UL (140-41 5) Mean Platelet 10.3 Volume fl (7.4-10.4) Immature 0.800 Granulocytes % % (0.001-0.429) Neutrophils % 58.9 % (39.0-77.0) Lymphocytes % 22.8 % (15.0-51.0) Monocytes % 9.3 % (0.0-11.0) Eosinophils % 7.7 % (0.0-7.0) Basophils % 0.5 % (0.0-2.0) Nucleated Red 0.0 Blood Cells % /100WBC (0.0-0. 0) Immature 0.050 Granulocytes # 10^3/ul (0.0-0. 031) Neutrophils # 3.5 10^3/ul (1.6-7. 5) Lymphocytes # 1.4 10^3/ul (0.8-2. 9) Monocytes # 0.6 10^3/ul (0.3-0. 9) Eosinophils # 0.5 10^3/ul (0.0-0. 5) Basophils # 0.0 10^3/ul (0.0-0. 1) Nucleated Red 0.0 Blood Cells # 10^3/ul (0.0-0. 0) Sodium Level 137 mmol/L (135-144 ) Potassium 4.2 Level mmol/L (3.5-5.1 ) Chloride Level 100 mmol/L (97-110) Carbon Dioxide 27 Level mmol/L (21-31) Anion Gap 10 (5-13) Blood Urea 38 mg/dl (7-20) Nitrogen Creatinine 1.40 mg/dl (0.61-1.2 4) Est Glomerular 53 mL/min (>60) Filtrat Rate mL/min Glucose Level 98 mg/dl (70-220) Calcium Level 9.9 mg/dl (8.4-10.2 ) Bedside 112 Glucose mg/dL (70-220) BEVERLY DUBON Jun 23, 2018 11:27
[2018-06-23 13:58] VITALS: BP 139/83; PULSE 75; RESP 18
== END 2018-06-23 14:36 | disposition home health service (06) | DRG 683 ==
LOC: E/R 10:22 → TEL 13:29 → MS1 06-17 07:04
PROVIDERS: ADMIT Internal Medicine; ATTEND Hospitalist
DX: N17.9 Acute kidney failure, unspecified (principal); M48.54XA Collapsed vertebra, not elsewhere classified, thoracic region, initial encounter for fracture; M86.8X7 Other osteomyelitis, ankle and foot; I12.9 Hypertensive chronic kidney disease with stage 1 through stage 4 chronic kidney disease, or unspecified chronic kidney disease; E87.5 Hyperkalemia; N18.3 Chronic kidney disease, stage 3 (moderate); E78.5 Hyperlipidemia, unspecified; E03.9 Hypothyroidism, unspecified; F32.9 Major depressive disorder, single episode, unspecified; G40.909 Epilepsy, unspecified, not intractable, without status epilepticus; E11.22 Type 2 diabetes mellitus with diabetic chronic kidney disease; E83.42 Hypomagnesemia; Z91.81 History of falling; W19.XXXA Unspecified fall, initial encounter; E11.621 Type 2 diabetes mellitus with foot ulcer; L97.519 Non-pressure chronic ulcer of other part of right foot with unspecified severity; E11.42 Type 2 diabetes mellitus with diabetic polyneuropathy; Z89.422 Acquired absence of other left toe(s); Z89.421 Acquired absence of other right toe(s); Z91.14 Patient's other noncompliance with medication regimen
CPT/HCPCS: 36415; 70450; 71045; 72131; 80048; 80053; 80185; 81003; 82550; 82570; 82962; 83036; 83735; 84100; 84132; 84300; 84443; 84484; 84560; 85025; 89190; 96374; 96375; 97110; 97116; 97161; 97530; J1170; J1335; J1644; J1815; J2405; J3475; J7030

== ENCOUNTER 2018-06-29 08:33 | Emergency (ER) | payer OTHER ==
[~2018-06-29] VITALS: Ht 162.6 cm; Wt 75.3 kg
[~2018-06-29 08:33] MED LIST changes: -GABA100C14 PO; -HYDR-3980 PO; +MORP15TA3 PO
[2018-06-29 08:44] VITALS: Ht 162.6 cm; Wt 75.3 kg
--- NOTE | 2018-06-29 09:24 | ERD ---
ER Documentation Chief Complaint Chief Complaint chest pain radiating to back x 2 days HPI This is a 53-year-old man complaining of sharp anterior chest pain x1 week after a fall about a week ago. States the pain is intermittent throughout the day and is worse with cough. He denies exertional chest pain or pressure, no shortness of breath, no calf or leg swelling, no fevers or chills, no vomiting or diarrhea ROS All systems reviewed and are negative except as per history of present illness. Medications Home Meds Active Scripts Meloxicam* (Meloxicam*) 7.5 Mg Tablet, 7.5 MG PO DAILY, #30 TAB Prov:RYAN RODRÍGUEZ MD 06/29/18 Morphine Sulfate (Morphine Sulfate ER) 15 Mg Tablet.er, 15 MG PO BID, #30 TAB Prov:BEVERLY DUBON S. 06/23/18 Atorvastatin* (Atorvastatin*) 40 Mg Tablet, 40 MG PO HS, #30 TAB 4 Refills Prov:BEVERLY DUBON S. 05/28/18 Reported Medications Aspirin* (Aspirin* EC) 81 Mg Tablet.dr, 81 MG PO DAILY, TAB 05/31/18 Hydrochlorothiazide* (Hydrochlorothiazide*) 12.5 Mg Tablet, 12.5 MG PO DAILY, #30 TAB 05/21/18 Tamsulosin Hcl* (Tamsulosin Hcl*) 0.4 Mg Cap.er.24h, 0.4 MG PO HS, CAP 05/21/18 Lactobacillus Acidophilus (Probiotic Acidophilus) 1 Each Tablet, 1 EACH PO DAILY, TAB 05/21/18 Sitagliptin* (Januvia*) 100 Mg Tablet, 100 MG PO DAILY, #30 TAB 05/21/18 Phenytoin* Sodium Extended (Dilantin*) 100 Mg Capsule, 100 MG PO TID, CAP 05/21/18 Thiamine* (Vitamin B-1*) 100 Mg Tablet, 100 MG PO DAILY, TAB 05/21/18 Ferrous Sulfate* (Ferrous Sulfate*) 325 Mg Tabec, 325 MG PO DAILY, TAB 05/21/18 Glipizide* (Glipizide*) 10 Mg Tablet, 10 MG PO AC BREAKFAST, TAB 05/21/18 Insulin Glargine,Hum.rec.anlog (Basaglar Kwikpen U-100) 100 Unit/1 Ml Insuln.pe n, 9 UNIT SC QHS, EA 03/02/18 Carbamazepine* (Tegretol Xr*) 200 Mg Tab.sr.12h, 200 MG PO Q12, TAB.SA 08/29/17 Folic Acid* (Folic Acid*) 1 Mg Tablet, 1 MG PO DAILY, TAB 08/29/17 Fluoxetine Hcl* (Prozac*) 40 Mg Capsule, 40 MG PO DAILY, CAP 08/29/17 Discontinued Reported Medications Hydrocodone/Acetaminophen ([place] 10-325 Tablet) 1 Each Tablet, 1 EACH PO BID, TAB 05/21/18 Gabapentin* (Gabapentin*) 100 Mg Capsule, 200 MG PO BID, #180 CAP 03/02/18 Allergies Allergies: Coded Allergies: mushroom (Verified Allergy, Severe, 06/29/18) swollen throat, No Known Drug Allergy (Verified Allergy, Unknown, 06/29/18) PMhx/Soc Bilateral foot osteomyelitis, right forefoot amputation, history of anemia and renal failure, diabetes mellitus type 2, hypertension, chronic alcoholism, seizure disorder, depression, recent right lower extremity ultrasound which was negative for DVT, lumbar compression fracture, frequent falls, bipolar disorder, alcohol abuse, drug abuse History of Surgery: Yes (R knee sx, L foot all toes amputation) Anesthesia Reaction: No Hx Neurological Disorder: Yes (Seizures, Headaches, Aneurysm) Hx Respiratory Disorders: No Hx Cardiac Disorders: No (htn, hyperlipidemia) Hx Psychiatric Problems: Yes (depression) Hx Alcohol Use: Yes Hx Substance Use: No Hx Tobacco Use: Yes Smoking Status: Former smoker Physical Exam Vitals Vital Signs Date Temp Pulse Resp B/P (MAP) Pulse Ox O2 O2 Flow FiO2 Time Delivery Rate 06/29/18 98.1 86 18 153/87 99 Room Air 11:11 (109) 06/29/18 87 18 147/92 99 Room Air 09:57 (110) 06/29/18 98.2 85 18 160/86 98 08:44 (110) Physical Exam Const: No acute distress, afebrile Resp: Clear to auscultation bilaterally Cardio: Regular rate and rhythm, no murmurs Abd: Soft, non tender, non distended. Normal bowel sounds Skin: No petechiae or rashes, no lacerations or abrasions Back: No midline or flank tenderness Ext: No cyanosis, or edema. Patient has mild reproducible tenderness over the anterior chest but no hematomas or ecchymosis, no lacerations or abrasions noted Neur: Awake and alert x3, no focal deficits or facial asymmetry Psych: Normal Mood and Affect Results 24 hrs Current Medications Medications Dose Sig/Nidia Start Time Status Last (Trade) Ordered Route PRN Stop Time Admin Dose Reason Admin Oxycodone/ 1 tab ONCE ONCE 06/29/18 DC 06/29/18 Acetaminophen PO 10:00 09:49 (Percocet 06/29/18 10:01 (5/ 325)) Procedures/MDM IV line was established patient was placed on monitor car operator rhythm strip revealed a sinus rhythm at about 80 bpm with upright P and T waves. Patient was afebrile EKG performed, read by me: 76 bpm, normal sinus rhythm, normal axis, no acute ST segment changes, narrow QRS complex, with good R-wave progression in precordial leads. Chest X-ray 1V Interpreted by me: Soft Tissue: No acute abnormalities Bones: No acute abnormalities Mediastinum/Cardiac Silhouette/Lungs: No acute abnormalities I administered Percocet 1 tablet p.o. for pain control which helped. Differential diagnoses considered, included but not limited to acute coronary syndrome, pulmonary embolism, aortic dissection, abdominal aortic aneurysm, sepsis, stroke, meningitis, encephalitis, pneumonia, appendicitis, cholecystitis, bowel obstruction, pyelonephritis, nephrolithiasis, cystitis, as well as metabolic, hematologic, and electrolyte abnormalities. As well as abscess, cellulitis, fractures, and dislocations. Patient feels much better at this time, and vital signs are normal, symptoms have improved. I did give strict instructions to return to the ED if symptoms continue or worsen, patient will otherwise follow-up with primary care physician. Patient understood instructions and agreed to plan. Disclaimer: Inadvertent spelling and grammatical errors are likely due to EHR/dictation software use and do not reflect on the overall quality of patient care. Also, please note that the electronic time recorded on this note does not necessarily reflect the actual time of the patient encounter. Departure Diagnosis: Primary Impression: Chest pain Chest pain type: unspecified Qualified Codes: R07.9 - Chest pain, unspecified Condition: RYAN Meléndez MD Jun 29, 2018 09:24
[2018-06-29] MEDS ORDERED: OXYCODONE/ACETAMINOPHEN (5/325) TAB PO ONE (10:00)
[2018-06-29] MEDS ORDERED: MELO7.5T38 PO (10:48)
[2018-06-29 11:11] VITALS: BP 153/87; PULSE 86; RESP 18
== END 2018-06-29 11:40 | disposition home or self-care (01) ==
LOC: E/R 08:33
DX: R07.9 Chest pain, unspecified (principal); I10 Essential (primary) hypertension; E11.9 Type 2 diabetes mellitus without complications; Z87.891 Personal history of nicotine dependence; Z79.4 Long term (current) use of insulin; Z79.82 Long term (current) use of aspirin
CPT/HCPCS: 71045; 93005; Z7502; Z7610

== ENCOUNTER 2018-09-05 10:09 | Emergency (ER) | payer OTHER ==
[~2018-09-05] VITALS: Ht 167.6 cm; Wt 70.0 kg
[~2018-09-05 10:09] MED LIST changes: +MELO7.5T38 PO
[2018-09-05 10:21] VITALS: Ht 167.6 cm; Wt 70.0 kg
--- NOTE | 2018-09-05 13:02 | ERD ---
ER Documentation Chief Complaint Chief Complaint BIB RA FOR EVAL OF ETOH AND TAKING UNKNOWN AMT OF [place]. DENIES SI OR HI HPI 53-year-old male presents to the emergency department by paramedics after an apparent overdose. History is mostly available from the patient's chairman & chief executive officer who states that the patient was increasingly depressed today. She states that he normally does not take medications when he drinks alcohol but today was increasingly depressed to the point where he was telling his family "goodbye" and then drank alcohol, took [place] as an apparent overdose. I have reviewed the staff toxicologist pre-hospital care. Pre-hospital vital signs were reviewed. Pre-hospital diagnostic tests were reviewed. Upon arrival, patient is unable to tell me when his ingestion was or if it was a singular ingestion. He has no medical complaints at this time and denies being suicidal. He does admit to being depressed. ROS All systems reviewed and are negative except as per history of present illness. Medications Home Meds Active Scripts Meloxicam* (Meloxicam*) 7.5 Mg Tablet, 7.5 MG PO DAILY, #30 TAB Prov:RYAN RODRÍGUEZ MD 06/29/18 Morphine Sulfate (Morphine Sulfate ER) 15 Mg Tablet.er, 15 MG PO BID, #30 TAB Prov:BEVERLY DUBON S. 06/23/18 Atorvastatin* (Atorvastatin*) 40 Mg Tablet, 40 MG PO HS, #30 TAB 4 Refills Prov:BEVERLY DUBON S. 05/28/18 Reported Medications Aspirin* (Aspirin* EC) 81 Mg Tablet.dr, 81 MG PO DAILY, TAB 05/31/18 Hydrochlorothiazide* (Hydrochlorothiazide*) 12.5 Mg Tablet, 12.5 MG PO DAILY, #30 TAB 05/21/18 Tamsulosin Hcl* (Tamsulosin Hcl*) 0.4 Mg Cap.er.24h, 0.4 MG PO HS, CAP 05/21/18 Lactobacillus Acidophilus (Probiotic Acidophilus) 1 Each Tablet, 1 EACH PO DAILY, TAB 05/21/18 Sitagliptin* (Januvia*) 100 Mg Tablet, 100 MG PO DAILY, #30 TAB 05/21/18 Phenytoin* Sodium Extended (Dilantin*) 100 Mg Capsule, 100 MG PO TID, CAP 05/21/18 Thiamine* (Vitamin B-1*) 100 Mg Tablet, 100 MG PO DAILY, TAB 05/21/18 Ferrous Sulfate* (Ferrous Sulfate*) 325 Mg Tabec, 325 MG PO DAILY, TAB 05/21/18 Glipizide* (Glipizide*) 10 Mg Tablet, 10 MG PO AC BREAKFAST, TAB 05/21/18 Insulin Glargine,Hum.rec.anlog (Basaglar Kwikpen U-100) 100 Unit/1 Ml Insuln.pen, 9 UNIT SC QHS, EA 03/02/18 Carbamazepine* (Tegretol Xr*) 200 Mg Tab.sr.12h, 200 MG PO Q12, TAB.SA 08/29/17 Folic Acid* (Folic Acid*) 1 Mg Tablet, 1 MG PO DAILY, TAB 08/29/17 Fluoxetine Hcl* (Prozac*) 40 Mg Capsule, 40 MG PO DAILY, CAP 08/29/17 Allergies Allergies: Coded Allergies: mushroom (Verified Allergy, Severe, 06/29/18) swollen throat, No Known Drug Allergy (Verified Allergy, Unknown, 06/29/18) PMhx/Soc History of Surgery: Yes (R knee sx, L foot all toes amputation) Anesthesia Reaction: No Hx Neurological Disorder: Yes (Seizures, Headaches, Aneurysm) Hx Respiratory Disorders: No Hx Cardiac Disorders: Yes (htn, hyperlipidemia) Hx Psychiatric Problems: Yes (depression) Hx Alcohol Use: Yes (CURRENTLY INTOXICATED) Hx Substance Use: No Hx Tobacco Use: Yes Smoking Status: Current every day smoker FmHx Noncontributory for chief complaint Physical Exam Vitals Vital Signs Date Temp Pulse Resp B/P (MAP) Pulse Ox O2 O2 Flow FiO2 Time Delivery Rate 09/05/18 97.2 122 16 123/91 95 Nasal 3.0 11:30 (102) Cannula 09/05/18 97.2 117 18 100/83 99 10:21 (89) Physical Exam GENERAL: The patient is well developed and appropriate for usual state of health in no apparent distress HEENT: Pupils equal, round, and reactive to light. EOMI. There is no scleral icterus. NECK: C-spine is soft and supple, there is no meningismus. There is no cervical lymphadenopathy. LUNGS: Clear to auscultation bilaterally. There are no rales, wheezes or rhonchi. HEART: Regular rate and rhythm, no murmurs, clicks, rubs or gallops. ABDOMEN: Soft, non-tender, non-distended. There are bowel sounds in all four quadrants. No rebound or guarding. EXTREMITIES: The right lower extremity is in a cast with what appears to be a postoperative change to his foot. No active infection appreciated on the visible portions of the other extremities which are otherwise normal. NEURO: The patient moves all four extremities with 5/5 strength. Cranial nerves II - XII are intact. Patient is awake alert and oriented but with slurred spee ch. SKIN: There is no apparent rash or petechiae. HEME/LYMPHATIC: There is no evidence of excessive bruising or lymphedema. PSYCHIATRIC: The patient does appeared depressed. He has a flattened affect and demeanor. Currently denying suicidal thoughts, auditory or visual hallucinations. Result Diagram: 09/05/18 1034 09/05/18 1034 Results 24 hrs Laboratory Tests Test 09/05/18 10:34 White Blood Count 6.3 10^3/ul Red Blood Count 4.22 10^6/ul Hemoglobin 11.6 g/dl Hematocrit 34.5 % Mean Corpuscular Volume 81.8 fl Mean Corpuscular Hemoglobin 27.5 pg Mean Corpuscular Hemoglobin Concent 33.6 g/dl Red Cell Distribution Width 14.3 % Platelet Count 314 10^3/UL Mean Platelet Volume 9.3 fl Immature Granulocytes % 0.500 % Neutrophils % 62.6 % Lymphocytes % 26.6 % Monocytes % 6.2 % Eosinophils % 3.0 % Basophils % 1.1 % Nucleated Red Blood Cells % 0.0 /100WBC Immature Granulocytes # 0.030 10^3/ul Neutrophils # 4.0 10^3/ul Lymphocytes # 1.7 10^3/ul Monocytes # 0.4 10^3/ul Eosinophils # 0.2 10^3/ul Basophils # 0.1 10^3/ul Nucleated Red Blood Cells # 0.0 10^3/ul Sodium Level 141 mmol/L Potassium Level 4.2 mmol/L Chloride Level 105 mmol/L Carbon Dioxide Level 25 mmol/L Anion Gap 11 Blood Urea Nitrogen 24 mg/dl Creatinine 1.35 mg/dl Est Glomerular Filtrat Rate mL/min 55 mL/min Glucose Level 117 mg/dl Calcium Level 9.1 mg/dl Total Bilirubin 0.4 mg/dl Direct Bilirubin 0.00 mg/dl Indirect Bilirubin 0.4 mg/dl Aspartate Amino Transf (AST/SGOT) 140 IU/L Alanine Aminotransferase (ALT/SGPT) 64 IU/L Alkaline Phosphatase 181 IU/L Total Protein 8.3 g/dl Albumin 4.4 g/dl Globulin 3.90 g/dl Albumin/Globulin Ratio 1.12 Salicylates Level < 1.0 mg/dl Acetaminophen Level 41.0 ug/ml Ethyl Alcohol Level 239.0 mg/dl Procedures/MDM Patient was taken to a room, seen and evaluated. Comfort measures were initiated. Diagnostic tests were ordered and reviewed. 3 LEAD RHYTHM STRIP: Normal sinus rhythm without ectopy CONSULTATION: 1300: Tele-psychiatry consultation was requested and is pending at this time REEVALUATION: Initial diagnostic tests were appreciated including the Tylenol level. There is a repeat level pending. Patient is now awake alert and oriented with no further complaints. He continues to deny suicidal thoughts MEDICAL DECISION MAKIN-year-old male presents with what appears to be a nontoxic overdose. He does have a slight acetaminophen level related to the [place] but this is subtoxic and will be repeated to make sure it is not increasing. He has no evidence of liver function abnormalities to indicate any hepatic consequence from the ingestion. Patient will continue under observation for repeat acetaminophen level, tele-psychiatry consultation. Departure Diagnosis: Primary Impression: Diabetic foot infection Additional Impression: Drug overdose Condition: ELY Manuel Sep 05, 2018 13:02
--- NOTE | 2018-09-05 13:18 | PSY ---
Date/Time of Note Date/Time of Note DATE: 09/05/18 TIME: 15:06 Psychiatric Subjective Eval Consent Pt consented to telemedicine: Yes Subjective Evaluation Patient location: emergency Chief Complaint: BIB RA FOR EVAL OF ETOH AND TAKING UNKNOWN AMT OF [place]. DENIES SI OR HI History of present illness HPI: 53 yo male with ho etoh abuse and depression. Pt was very vague. Immediately denies trying to harm himself. Says he is in ED for having a cast and someone in his building has been breaking into mailboxes which is "stressing me out." Pt becomes angry when MD asks pt about reported overdose on [place] per note by attending MD below which states that pt has been depressed and was telling people "goodbye" after overdose. This info came from video camera operator. "53-year-old male presents to the emergency department by paramedics after an apparent overdose. History is mostly available from the patient's video camera operator who states that the patient was increasingly depressed today. She states that he no rmally does not take medications when he drinks alcohol but today was increasingly depressed to the point where he was telling his family "goodbye" and then drank alcohol, took [place] as an apparent overdose." MD also spoke with pt's video camera operator who was present and pt gave consent. She reports she helps him with wound and DM. She reports she came there this morning and he was drinking etoh this morning and "taking pills" and he was saying that he "was done with everything" and "tired of this world" and would make calls to make sure his dogs were taken care of after he kills himself. She confirms he was very depressed. past Psych Hx: pt was vague and evasive PMHx: DM, htn, epilepsy Meds: tegretol, insulin All: mushroom MSE: somewhat disheveled, superficially cooperative, no shirt on, has cast on leg, raspy speech, reports good mood but affect is dysthymic, restricted, organized but perseverates on NOT wanting ot kill himself, denies si, poor insight/reliability Imp: 53 yo male s/p suicide attempt adn etoh abuse Utox 5150 psych admit Alcohol withdrawal precautions with CIWA Daily thiamine 100mg po folate 1mg po mvi d/w attending [place] Medical history Problems Medical Problems: (1) Abdominal pain Status: Acute (2) Acute hyperkalemia Status: Acute (3) Acute renal failure Status: Acute (4) Acute renal insufficiency Status: Acute (5) Alcohol withdrawal Status: Acute (6) Alcoholic intoxication Status: Acute (7) Alcoholic intoxication Status: Acute (8) Anemia Status: Acute (9) Bipolar disease, chronic Status: Acute (10) Cellulitis Status: Acute (11) Cellulitis, toe Status: Acute (12) Chest pain Status: Acute (13) Chronic kidney disease Status: Acute (14) Dehydration Status: Acute (15) Depression Status: Acute (16) Diabetes mellitus type 2 in nonobese Status: Acute (17) Diabetic foot infection Status: Acute (18) Diabetic foot ulcer Status: Acute (19) Drug overdose Status: Acute (20) End stage kidney disease Status: Acute (21) Foot pain Status: Acute (22) Foot ulcer Status: Acute (23) Foot ulcer Status: Acute (24) History of seizure disorder Status: Acute (25) Hyperglycemia due to type 2 diabetes mellitus Status: Acute (26) Hyperkalemia Status: Acute (27) Hypertension Status: Acute (28) Infected ulcer of skin Status: Acute (29) Lactic acidosis Status: Acute (30) Microcytic anemia Status: Acute (31) Osteomyelitis Status: Acute (32) Osteomyelitis of left foot Status: Acute (33) Osteomyelitis of right foot Status: Acute (34) Osteomyelitis of right foot Status: Acute (35) Pain of right leg Status: Acute (36) Pain of right leg Status: Acute (37) PIC line (peripherally inserted central catheter) removal Status: Acute (38) Post-op pain Status: Acute (39) Postoperative pain Status: Acute (40) Rhabdomyolysis Status: Acute (41) Right foot pain Status: Acute (42) Sepsis due to cellulitis Status: Acute (43) Septic shock Status: Acute (44) Suicidal ideation Status: Acute (45) T12 compression fracture Status: Acute (46) Ulcer Status: Acute (47) Uncontrolled diabetes mellitus with hyperglycemia Status: Acute (48) Unilateral amputation of right foot Status: Acute Allergies: Coded Allergies: mushroom (Verified Allergy, Severe, 06/29/18) swollen throat, No Known Drug Allergy (Verified Allergy, Unknown, 06/29/18) Psychiatric Objective Eval Mental Status Examination: Laboratory Results Laboratory Tests Test 09/05/18 10:34 White Blood Count 6.3 10^3/ul Red Blood Count 4.22 10^6/ul Hemoglobin 11.6 g/dl Hematocrit 34.5 % Mean Corpuscular Volume 81.8 fl Mean Corpuscular Hemoglobin 27.5 pg Mean Corpuscular Hemoglobin Concent 33.6 g/dl Red Cell Distribution Width 14.3 % Platelet Count 314 10^3/UL Mean Platelet Volume 9.3 fl Immature Granulocytes % 0.500 % Neutrophils % 62.6 % Lymphocytes % 26.6 % Monocytes % 6.2 % Eosinophils % 3.0 % Basophils % 1.1 % Nucleated Red Blood Cells % 0.0 /100WBC Immature Granulocytes # 0.030 10^3/ul Neutrophils # 4.0 10^3/ul Lymphocytes # 1.7 10^3/ul Monocytes # 0.4 10^3/ul Eosinophils # 0.2 10^3/ul Basophils # 0.1 10^3/ul Nucleated Red Blood Cells # 0.0 10^3/ul Sodium Level 141 mmol/L Potassium Level 4.2 mmol/L Chloride Level 105 mmol/L Carbon Dioxide Level 25 mmol/L Anion Gap 11 Blood Urea Nitrogen 24 mg/dl Creatinine 1.35 mg/dl Est Glomerular Filtrat Rate mL/min 55 mL/min Glucose Level 117 mg/dl Calcium Level 9.1 mg/dl Total Bilirubin 0.4 mg/dl Direct Bilirubin 0.00 mg/dl Indirect Bilirubin 0.4 mg/dl Aspartate Amino Transf (AST/SGOT) 140 IU/L Alanine Aminotransferase (ALT/SGPT) 64 IU/L Alkaline Phosphatase 181 IU/L Total Protein 8.3 g/dl Albumin 4.4 g/dl Globulin 3.90 g/dl Albumin/Globulin Ratio 1.12 Salicylates Level < 1.0 mg/dl Acetaminophen Level 41.0 ug/ml Ethyl Alcohol Level 239.0 mg/dl Assessment and Plan Recommendation/Plan Multiple antipsychotics: No Discharge Disposition: Psychiatric inpatient Legal Status: Place involuntary hold MIKESMILEY IZAGUIRRE Sep 05, 2018 13:18
[2018-09-05] MEDS ORDERED: GABA300C16 PO (14:41)
[2018-09-05] MEDS ORDERED: METF100010 PO (14:41)
[2018-09-05] MEDS ORDERED: GLIP10TA14 PO (14:41)
[2018-09-05] MEDS ORDERED: CARB200T43 PO (14:42)
[2018-09-05] MEDS ORDERED: FLUO20CA22 PO (14:42)
[2018-09-05] MEDS ORDERED: ENAL10TA PO (14:43)
[2018-09-05] MEDS ORDERED: FOLI-49 PO (14:43)
[2018-09-05] MEDS ORDERED: PHEN100C PO (14:44)
[2018-09-05] MEDS ORDERED: QUET100T PO (14:45)
[2018-09-05] MEDS ORDERED: INSU100I33 SC (14:47)
[2018-09-05] MEDS ORDERED: THIA100T56 PO (15:05)
[2018-09-05] MEDS ORDERED: FLUO40CA PO (15:06)
[2018-09-05] MEDS ORDERED: NIFE90TA11 PO (15:07)
[2018-09-05] MEDS ORDERED: PROBIOTIC 10 PO (15:08)
[2018-09-05] MEDS ORDERED: ASPI-817 PO (15:09)
[2018-09-05] MEDS ORDERED: HYDR50TA3 PO (15:10)
[2018-09-05] MEDS ORDERED: FER325 PO (15:10)
[2018-09-05] MEDS ORDERED: OXYB5TAB7 PO (15:11)
[2018-09-05] MEDS ORDERED: ATOR40TA68 PO (15:11)
[2018-09-05] MEDS ORDERED: TAMS-14 PO (15:11)
[2018-09-05] MEDS ORDERED: SITA100T11 PO (15:13)
[2018-09-05] MEDS ORDERED: HYDR-3670 PO (15:14)
[2018-09-05] MEDS ORDERED: BUPR150T6 PO (15:14)
[2018-09-05] MEDS ORDERED: AMLO-147 PO (15:15)
[2018-09-05] MEDS ORDERED: LORAZEPAM 1 MG TAB PO ONE (20:00)
--- NOTE | 2018-09-06 11:45 | EN ---
Date/Time of Note Date/Time of Note DATE: 09/06/18 TIME: 11:44 ER Progress Note No acute events overnight Patient remains suicidal and on a 5150 hold. No acute medical complaints overnight. Physical exam: Vital signs appreciated as per nursing note Psychiatrically, patient remains depressed. He has demonstrated no significant agitation. Thought process appears to be adequate. Assessment: Patient has been placed on a 50 1:55 PM RT who evaluated the patient earlier. Plan: Patient remains medically clear. He has ongoing issues regarding a chronic wound on his right lower extremity, but no evidence of acute decompensation. He will be maintained under observation pending placement for psychiatric ho spitalization. ELY COLLINS Sep 06, 2018 11:45
--- NOTE | 2018-09-06 13:36 | EN ---
Date/Time of Note Date/Time of Note DATE: 09/06/18 TIME: 13:35 ER Progress Note Psychiatric Observation Note: Indication: Suicidal ideation Duration: 27 hours Family history: As documented in original HPI The patient was observed with serial exams over the above timeframe. The patient continued to be well-appearing, and observation continued without complication. All other needs have been met during emergency department stay. Hold status: Currently on 5150 hold Placement status: The patient was reevaluated by telemetry medicine psychiatry who still feel the patient warrants hospitalization. We will continue to place the patient. DAGOBERTO DYER MD Sep 06, 2018 13:36
--- NOTE | 2018-09-06 13:37 | PSY ---
Date/Time of Note Date/Time of Note DATE: 09/06/18 TIME: 15:30 Psychiatric Subjective Eval Consent Pt consented to telemedicine: Yes Subjective Evaluation Patient location: emergency Chief Complaint: BIB RA FOR EVAL OF ETOH AND TAKING UNKNOWN AMT OF [place]. DENIES SI OR HI History of present illness HPI: 53 yo male seen yesterday by this MD. Per that note, "" 53 yo male with ho etoh abuse and depression. Pt was very vague. Immediately denies trying to harm himself. Says he is in ED for having a cast and someone in his building has been breaking into mailboxes which is "stressing me out." Pt becomes angry when MD asks pt about reported overdose on [place] per note by attending MD below which states that pt has been depressed and was telling people "goodbye" after overdose. This info came from education coordinator. "53-year-old male presents to the emergency department by paramedics after an apparent overdose. History is mostly available from the patient's education coordinator who states that the patient was increasingly depressed today. She states that he normally does not take medications when he drinks alcohol but today was in creasingly depressed to the point where he was telling his family "goodbye" and then drank alcohol, took [place] as an apparent overdose." also spoke with pt's education coordinator who was present and pt gave consent. She reports she helps him with wound and DM. She reports she came there this morning and he was drinking etoh this morning and "taking pills" and he was saying that he "was done with everything" and "tired of this world" and would make calls to make sure his dogs were taken care of after he kills himself. She confirms he was very depressed." spoke with pt again. Reports he feels well does not want to be admitted. Reports he was just a bit depressed because of the holidays. He continues to deny that he tried to kill himself despite that parallel as above. Pt reports he is fully euthymic, and continues to report that he just needs his cast off. Continues to be vague and evasive. past Psych Hx: pt was vague and evasive PMHx: DM, htn, epilepsy Meds: tegretol, insulin All: mushroom MSE: somewhat disheveled, superficially cooperative, has cast on leg, raspy speech, reports good mood reactive, organized but perseverates on NOT wanting to kill himself, denies si, poor insight/reliability Imp: 53 yo male s/p suicide attempt and etoh abuse, though pt reports feeling better and mood appears somewhat better since yesterday, that pt just tried to kill self, has been using substances, has poor insight/reliability, has depression, and just tried to kill self and denies that he tried to kill self suggests that pt remains acute risk to self 5150 psych admit Alcohol withdrawal precautions with CIWA Daily thiamine 100mg po folate 1mg po mvi d/w attending [place] Medical history Problems Medical Problems: (1) Abdominal pain Status: Acute (2) Acute hyperkalemia Status: Acute (3) Acute renal failure Status: Acute (4) Acute renal insufficiency Status: Acute (5) Alcohol withdrawal Status: Acute (6) Alcoholic intoxication Status: Acute (7) Alcoholic intoxication Status: Acute (8) Anemia Status: Acute (9) Bipolar disease, chronic Status: Acute (10) Cellulitis Status: Acute (11) Cellulitis, toe Status: Acute (12) Chest pain Status: Acute (13) Chronic kidney disease Status: Acute (14) Dehydration Status: Acute (15) Depression Status: Acute (16) Diabetes mellitus type 2 in nonobese Status: Acute (17) Diabetic foot infection Status: Acute (18) Diabetic foot ulcer Status: Acute (19) Drug overdose Status: Acute (20) End stage kidney disease Status: Acute (21) Foot pain Status: Acute (22) Foot ulcer Status: Acute (23) Foot ulcer Status: Acute (24) History of seizure disorder Status: Acute (25) Hyperglycemia due to type 2 diabetes mellitus Status: Acute (26) Hyperkalemia Status: Acute (27) Hypertension Status: Acute (28) Infected ulcer of skin Status: Acute (29) Lactic acidosis Status: Acute (30) Microcytic anemia Status: Acute (31) Osteomyelitis Status: Acute (32) Osteomyelitis of left foot Status: Acute (33) Osteomyelitis of right foot Status: Acute (34) Osteomyelitis of right foot Status: Acute (35) Pain of right leg Status: Acute (36) Pain of right leg Status: Acute (37) PIC line (peripherally inserted central catheter) removal Status: Acute (38) Post-op pain Status: Acute (39) Postoperative pain Status: Acute (40) Rhabdomyolysis Status: Acute (41) Right foot pain Status: Acute (42) Sepsis due to cellulitis Status: Acute (43) Septic shock Status: Acute (44) Suicidal ideation Status: Acute (45) T12 compression fracture Status: Acute (46) Ulcer Status: Acute (47) Uncontrolled diabetes mellitus with hyperglycemia Status: Acute (48) Unilateral amputation of right foot Status: Acute Allergies: Coded Allergies: mushroom (Verified Allergy, Severe, 09/05/18) swollen throat, No Known Drug Allergy (Verified Allergy, Unknown, 09/05/18) Psychiatric Objective Eval Mental Status Examination: Laboratory Results Laboratory Tests Test 09/05/18 00:00 09/05/18 10:34 09/05/18 13:14 09/05/18 18:03 Urine Color YELLOW Urine Clarity CLEAR Urine pH 5.0 Urine Specific 1.012 [place] Urine Ketones NEGATIVE mg/dL Urine Nitrite NEGATIVE mg/dL Urine Bilirubin NEGATIVE mg/dL Urine Urobilinogen NEGATIVE mg/dL Urine Leukocyte NEGATIVE Ian/ul Esterase Urine Microscopic 0 /HPF RBC Urine Microscopic 1 /HPF WBC Urine Hemoglobin 1+ mg/dL Urine Glucose 1+ mg/dL Urine Total Protein 1+ mg/dl Urine Opiates Positive Screen Urine Barbiturates Negative Urine Amphetamines Negative Screen Urine Negative Benzodiazepines Screen Urine Cocaine Negative Screen Urine Cannabinoids Negative White Blood Count 6.3 10^3/ul Red Blood Count 4.22 10^6/ul Hemoglobin 11.6 g/dl Hematocrit 34.5 % Mean Corpuscular 81.8 fl Volume Mean Corpuscular 27.5 pg Hemoglobin Mean Corpuscular 33.6 g/dl Hemoglobin Concent Red Cell 14.3 % Distribution Width Platelet Count 314 10^3/UL Mean Platelet 9.3 fl Volume Immature 0.500 % Granulocytes % Neutrophils % 62.6 % Lymphocytes % 26.6 % Monocytes % 6.2 % Eosinophils % 3.0 % Basophils % 1.1 % Nucleated Red Blood 0.0 /100WBC Cells % Immature 0.030 10^3/ul Granulocytes # Neutrophils # 4.0 10^3/ul Lymphocytes # 1.7 10^3/ul Monocytes # 0.4 10^3/ul Eosinophils # 0.2 10^3/ul Basophils # 0.1 10^3/ul Nucleated Red Blood 0.0 10^3/ul Cells # Sodium Level 141 mmol/L Potassium Level 4.2 mmol/L Chloride Level 105 mmol/L Carbon Dioxide 25 mmol/L Level Anion Gap 11 Blood Urea Nitrogen 24 mg/dl Creatinine 1.35 mg/dl Est Glomerular 55 mL/min Filtrat Rate mL/min Glucose Level 117 mg/dl Calcium Level 9.1 mg/dl Total Bilirubin 0.4 mg/dl Direct Bilirubin 0.00 mg/dl Indirect Bilirubin 0.4 mg/dl Aspartate Amino 140 IU/L Transf (AST/SGOT) Alanine 64 IU/L Aminotransferase (A LT/SGPT) Alkaline 181 IU/L Phosphatase Total Protein 8.3 g/dl Albumin 4.4 g/dl Globulin 3.90 g/dl Albumin/Globulin 1.12 Ratio Salicylates Level < 1.0 mg/dl Acetaminophen Level 41.0 ug/ml 29.0 ug/ml Ethyl Alcohol Level 239.0 mg/dl Bedside Glucose 111 mg/dL Assessment and Plan Recommendation/Plan Multiple antipsychotics: No Discharge Disposition: Psychiatric inpatient Legal Status: Place involuntary hold MIKE,SMILEY Sep 06, 2018 13:37
[2018-09-06] MEDS: CARBAMAZEPINE 200 MG TAB PO SCH (17:10)
[2018-09-06] MEDS: PHENYTOIN 100 MG CAP PO SCH ×2 (17:10→22:35)
[2018-09-06] MEDS ORDERED: LORAZEPAM 1 MG TAB PO ONE (22:30)
[2018-09-07] MEDS: PHENYTOIN 100 MG CAP PO SCH ×3 (10:44→21:26)
[2018-09-07] MEDS: CARBAMAZEPINE 200 MG TAB PO SCH ×2 (10:44→21:26)
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
[2018-09-07] MEDS ORDERED: IBUPROFEN 800 MG TAB PO ONE ×2 (11:00→17:30)
[2018-09-07] MEDS ORDERED: DIPHENHYDRAMINE 50 MG CAP PO ONE (22:30)
[2018-09-08] MEDS ORDERED: IBUPROFEN 800 MG TAB PO ONE (06:30)
--- NOTE | 2018-09-08 06:45 | PSY ---
Date/Time of Note Date/Time of Note DATE: 09/08/18 TIME: 06:44 Psychiatric Subjective Eval Consent Pt consented to telemedicine: Yes Subjective Evaluation Patient location: emergency Chief Complaint: BIB RA FOR EVAL OF ETOH AND TAKING UNKNOWN AMT OF [place]. DENIES SI OR HI Reason for consult: re-evaluation Hospitalization: Suicidal Attempt(s) Medical history Problems Medical Problems: (1) Abdominal pain Status: Acute (2) Acute hyperkalemia Status: Acute (3) Acute renal failure Status: Acute (4) Acute renal insufficiency Status: Acute (5) Alcohol withdrawal Status: Acute (6) Alcoholic intoxication Status: Acute (7) Alcoholic intoxication Status: Acute (8) Anemia Status: Acute (9) Bipolar disease, chronic Status: Acute (10) Cellulitis Status: Acute (11) Cellulitis, toe Status: Acute (12) Chest pain Status: Acute (13) Chronic kidney disease Status: Acute (14) Dehydration Status: Acute (15) Depression Status: Acute (16) Diabetes mellitus type 2 in nonobese Status: Acute (17) Diabetic foot infection Status: Acute (18) Diabetic foot ulcer Status: Acute (19) Drug overdose Status: Acute (20) End stage kidney disease Status: Acute (21) Foot pain Status: Acute (22) Foot ulcer Status: Acute (23) Foot ulcer Status: Acute (24) History of seizure disorder Status: Acute (25) Hyperglycemia due to type 2 diabetes mellitus Status: Acute (26) Hyperkalemia Status: Acute (27) Hypertension Status: Acute (28) Infected ulcer of skin Status: Acute (29) Lactic acidosis Status: Acute (30) Microcytic anemia Status: Acute (31) Osteomyelitis Status: Acute (32) Osteomyelitis of left foot Status: Acute (33) Osteomyelitis of right foot Status: Acute (34) Osteomyelitis of right foot Status: Acute (35) Pain of right leg Status: Acute (36) Pain of right leg Status: Acute (37) PIC line (peripherally inserted central catheter) removal Status: Acute (38) Post-op pain Status: Acute (39) Postoperative pain Status: Acute (40) Rhabdomyolysis Status: Acute (41) Right foot pain Status: Acute (42) Sepsis due to cellulitis Status: Acute (43) Septic shock Status: Acute (44) Suicidal ideation Status: Acute (45) T12 compression fracture Status: Acute (46) Ulcer Status: Acute (47) Uncontrolled diabetes mellitus with hyperglycemia Status: Acute (48) Unilateral amputation of right foot Status: Acute Allergies: Coded Allergies: mushroom (Verified Allergy, Severe, 09/05/18) swollen throat, No Known Drug Allergy (Verified Allergy, Unknown, 09/05/18) Social History Marital status: Level of education: GED DPA/Conservatorship: No Occupation/Longterm: on ssi Psychiatric Objective Eval Mental Status Examination: Laboratory Results Laboratory Tests Test 09/07/18 00:03 09/07/18 18:48 09/07/18 18:52 09/08/18 00:20 Bedside Glucose 213 mg/dL Total Bilirubin 0.5 mg/dl Direct Bilirubin 0.00 mg/dl Indirect Bilirubin 0.5 mg/dl Aspartate Amino 91 IU/L Transf (AST/SGOT) Alanine 69 IU/L Aminotransferase (ALT/S GPT) Alkaline Phosphatase 196 IU/L Total Protein 7.1 g/dl Albumin 4.1 g/dl Sodium Level 132 mmol/L Potassium Level 4.3 mmol/L Chloride Level 97 mmol/L Carbon Dioxide Level 25 mmol/L Anion Gap 10 Blood Urea Nitrogen 16 mg/dl Creatinine 1.22 mg/dl Est Glomerular Filtrat > 60 mL/min Rate mL/min Glucose Level 290 mg/dl Calcium Level 9.1 mg/dl Acetaminophen Level < 10.0 ug/ml Phenytoin (Dilantin) < 3.0 ug/ml Level Assessment and Plan Recommendation/Plan Discharge Disposition: Psychiatric inpatient Legal Status: Continue involuntary hold Assessment Additional comments: IDENTIFYING INFORMATION: 53 year old Male patient who is currently located at the hospital and for whom psychiatric consultation was requested. SOURCES OF INFORMATION: The patient who appears to be somewhat reliable and the medical records; the nursing staff. Daughter, Ashlyn, was called at [phone] at 6:39 am but there was no response. Ward Maid, Carly Valle, was called at [phone] at 6:41 am but there was no response. CHIEF COMPLAINT: "depressed". HISTORY OF PRESENT ILLNESS: The patient was interviewed via telemedicine in the presence of and under the supervision of nursing staff of the hospital. The consent to conducting this interview via telemedicine was obtained by the nursing staff at the hospital. ANN Smith reports that the patient presented with SI in the context of alcohol intoxication. Per 5150 hold ppw, the pt reported depression, impulsivity, uses alcohol to enoc at his depression, denies SI/HI. He stated to his caregiver to take care of his dogs after he kills himself. Pt is a DTS. The patient was evaluated by Dr. Mosqueda on September 07. the patient presented with an overdose of [place]. Starting Lexapro 10 mg by mouth daily was recommended. Inpatient involuntary admission was recommended. The patient reports having taken an OD, but regrets it. Reports that he was not trying to kill himself. Admits to feeling depressed at times. The patient denies having anhedonia, insomnia, low appetite, AH, VH, delusions. Reports that he used to drink heavily but not lately. The patient denies using alcohol heavily or regularly. The patient denies using any other substances. In terms of past psychiatric history, the patient reports having a history of no past psychiatric hospitalizations. The patient reports having a history of past suicide attempts. Past medication trials: does not recall. PAST MEDICAL HISTORY: HTN, DM, epilepsy. CURRENT MEDICATIONS: tegretol, dilantin, humalog, lantus. ALLERGIES TO MEDICATIONS: NKDA. LABORATORY TESTS: CBC with H/H 11.6/34.5, CMP with creat 1.35, BUN 24, AST 140, UDS + opiates, alcohol level 239, tylenol 41 ? 29 ? 10. SOCIAL HISTORY: single, has 5 children, lives alone, 10th grade education, employed in managing a building; no access to firearms. REVIEW OF SYSTEMS: Constitutional (e.g., fever, weight loss): negative; Eyes, Ears, Nose, Mouth, Throat: negative; Cardiovascular: negative; Respiratory: negative; Gastrointestinal: negative; Genitourinary: negative; Musculoskeletal: negative; Integumentary (skin and/or breast): negative; Neurological: negative; Psychiatric: as per HPI; Endocrine: negative; Hematologic/Lymphatic: negative; Allergic/Immunologic: negative. MENTAL STATUS EXAMINATION: General Appearance and Behavior: Calm, cooperative with the interview, pleasant with the current interviewer, makes fair eye contact, fairly groomed, no abnormal movements noted, Speech: Regular rate, regular rhythm, normal latency, normal volume, somewhat decreased amount, Flow of thought: sequential, logical, goal-directed, Content of thought: no auditory hallucinations, no visual hallucinations, no delusions, positive for suicidal ideation based on 5150 hold and reported SI of family, pt denies SI; no homicidal ideation, Mood: "depressed", Affect: dysthymic, dysphoric, not reactive, Attention: normal based on the interview, Insight: fair, Judgment: poor, Memory: normal based on the interview, Sensorium: alert and oriented to person, place and date. ASSESSMENT: The patient's presentation and history are consistent with the diagnosis of unspecified mood disorder, alcohol use disorder. The patient presents in a major depressive episode s/p OD in the context of medication noncompliance, psychosocial stressors and substance use. The patient does not appear to be a very reliable court reporter. He is denying having any severe psychiatric symptoms whatsoever. He denies ever saying goodbye to his family and florist. Unfortunately collateral information is not available at this time. No evidence of psychosis, ofelia, hypomania on exam. PLAN: - Medication management: Would start celexa 20 mg po qday. (Lexapro has not been started). Would start haloperidol 5 mg IM PRN severe agitation q4 hours. Would start diphenhydramine 50 mg IM PRN severe agitation q4 hours. Would start lorazepam 2 mg IM PRN severe agitation q4 hours Will defer to the inpatient psychiatry team for other medication changes. - Labs: No other laboratory tests are needed at this time. - Psychotherapy: Provided supportive psychotherapy and psychoeducation. - Disposition: Would recommend involuntary admission to the inpatient psychiatric unit given the severity of the patient's psychiatric condition and the fact that the patie nt is an imminent danger to self and/or others so long as the patient has been cleared medically for admission to psychiatry. Inpatient psychiatric admission is at this time the least restrictive environment where the patient can receive the psychiatric care that is needed. Would place on suicide precautions. The patient fulfills criteria for being placed on an involuntary hold for being a danger to self or others or gravely disabled due to a psychiatric disorder. Discussed about the above plan with Dr. Dai. BARAK POP MD Sep 08, 2018 06:45
[2018-09-08] MEDS ORDERED: PIPER-TAZO 3.375 GM IV (PMX) 100 ML IVPB STA (07:22)
[2018-09-08] MEDS ORDERED: ACETAMINOPHEN 325 MG TAB PO PRN (07:30)
[2018-09-08] MEDS ORDERED: ONDANSETRON 4 MG INJ IV PRN (07:30)
[2018-09-08] MEDS ORDERED: VANCOMYCIN 1 GM (PMX) 250 ML IVPB ONE (07:30)
[2018-09-08] MEDS ORDERED: CITALOPRAM 20 MG TAB PO SCH (09:00)
[2018-09-08] MEDS: PHENYTOIN 100 MG CAP PO SCH ×2 (09:19→12:42)
[2018-09-08] MEDS: CARBAMAZEPINE 200 MG TAB PO SCH (10:26)
[2018-09-08] MEDS ORDERED: PHENYTOIN 100 MG CAP PO STA (12:38)
[2018-09-08 12:59] VITALS: BP 144/89; PULSE 88; RESP 20
[2018-09-08] MEDS ORDERED: PHENYTOIN 100 MG CAP PO ONE (13:00)
== END 2018-09-08 12:59 | disposition home or self-care (01) ==
LOC: E/R 10:09 → CANBEDREQ 09-08 10:09 → E/R 09-08 12:59
DX: T39.1X1A Poisoning by 4-Aminophenol derivatives, accidental (unintentional), initial encounter (principal); L08.9 Local infection of the skin and subcutaneous tissue, unspecified; E11.9 Type 2 diabetes mellitus without complications; I10 Essential (primary) hypertension; F17.210 Nicotine dependence, cigarettes, uncomplicated; Z79.4 Long term (current) use of insulin; Z79.82 Long term (current) use of aspirin
CPT/HCPCS: 36415; 80048; 80053; 80076; 80185; 80307; 81001; 82962; 85025; J2543; J3370; Z7502; Z7610; 99283

== ENCOUNTER 2018-12-24 11:52 | Inpatient (IN) | payer OTHER ==
[~2018-12-24] VITALS: Ht 170.2 cm; Wt 71.0 kg
[~2018-12-24 11:52] MED LIST changes: +AMLO-147 PO; +BUPR150T6 PO; +CARAS PO; -CARB-160 PO; +CARB200T43 PO; +CEPH-443 PO; +CEPH500C PO; +CIPR500T4 PO; +FLUO40CA PO; -FLUO40CA10 PO; +GLIP10TA14 ORAL; +HYDR-3671 PO; -HYDR12.58 PO; +HYDR50TA3 PO; +INSU100I46 SQ; -LACT1TAB25 PO; +LEVE750T8 PO; -MELO7.5T38 PO; -MORP15TA3 PO; +MULT-896 PO; +OXYB5TAB10 PO; +PANT40TA4 PO; +POLY17PO6 GTB; +TAMS-14 PO; -TAMS0.4C2 PO; +TRAZ-111 PO; +ZOLP5TAB7 ORAL
[2018-12-24] MEDS ORDERED: LACTATED RINGER'S 1,000 ML IV STA (18:53)
[2018-12-24] MEDS ORDERED: SOD CHLORIDE 0.9% 1,000 ML IV STA (18:53)
[2018-12-24] MEDS ORDERED: IOHEXOL 300MG/ML 150 ML BTL ONE (19:41)
[2018-12-24] MEDS ORDERED: ACETAMINOPHEN 325 MG TAB PO PRN (21:00)
[2018-12-24] MEDS ORDERED: ONDANSETRON 4 MG INJ IV PRN (21:00)
[2018-12-24] MEDS ORDERED: LIDOCAINE/MYLANTA 40 ML BTL PO ONE (22:00)
[2018-12-24 22:57] VITALS: Ht 170.2 cm; Wt 71.0 kg
[2018-12-24 23:31] VITALS: BP 125/89; PULSE 117; RESP 18
[2018-12-24] MEDS ORDERED: GLUCOSE GEL 15 GRAM TUBE BUCCAL PRN (23:45)
[2018-12-24] MEDS ORDERED: DEXTROSE 50% 50 ML SYRINGE IV PRN ×2 (23:45)
[2018-12-24] MEDS ORDERED: GLUCOSE GEL 15 GRAM TUBE PO PRN ×2 (23:45)
[2018-12-24] MEDS ORDERED: GLUCAGON 1 MG INJ IM PRN (23:45)
[2018-12-25] MEDS ORDERED: NACL 0.9% 3 ML SYG IV SCH
[2018-12-25] MEDS ORDERED: ACETAMINOPHEN 325 MG TAB PO PRN
[2018-12-25] MEDS: SOD CHLORIDE 0.9% 1,000 ML IV SCH ×3 (00:38→19:48)
[2018-12-25] MEDS: TRIMETHOPRIM/SULFAMETHOX (DS) TAB PO SCH ×3 (00:38→21:53)
[2018-12-25] MEDS: traZODone 50 MG TAB PO PRN (00:38)
[2018-12-25] MEDS ORDERED: GUAIFENESIN/CODEINE 5ML CUP PO PRN (01:00)
[2018-12-25 04:50] VITALS: BP 147/91; PULSE 102; RESP 18
[2018-12-25] MEDS: PANTOPRAZOLE 40 MG INJ IV SCH ×2 (06:19→17:19)
[2018-12-25 07:22] VITALS: BP 139/80; PULSE 89; RESP 19
[2018-12-25] MEDS: HYDROCHLOROTHIAZIDE 25 MG TAB PO SCH (08:12)
[2018-12-25] MEDS: carBAMAZepine (XR) 200 MG TABSR PO SCH ×2 (08:12→21:53)
[2018-12-25] MEDS: ASPIRIN (EC) 81 MG TAB PO SCH (08:12)
[2018-12-25] MEDS: BUPROPION (XL) 150 MG TAB PO SCH (08:13)
[2018-12-25] MEDS: AMLODIPINE 10 MG TAB PO SCH (08:13)
[2018-12-25] MEDS: CHLORDIAZEPOXIDE 25 MG CAP PO SCH ×3 (08:13→21:53)
[2018-12-25] MEDS: FERROUS SULFATE (EC) 325 MG TAB PO SCH (08:13)
[2018-12-25] MEDS: FOLIC ACID 1 MG TAB PO SCH (08:13)
[2018-12-25] MEDS: HEPARIN 5,000 UNIT/1 ML VIAL SC SCH ×2 (08:15→21:48)
[2018-12-25] MEDS: INSULIN ASPART [NOVOLOG] 3 ML PEN SC SCH ×4 (08:16→21:47)
[2018-12-25] MEDS ORDERED: HYDROCHLOROTHIAZIDE 50 MG TAB PO SCH (09:00)
[2018-12-25] MEDS ORDERED: HYDROCODONE/APAP (5/325) TAB NGT PRN (12:00)
[2018-12-25 12:12] VITALS: BP 181/100; PULSE 96; RESP 18
[2018-12-25 12:14] VITALS: BP 162/96
[2018-12-25 15:43] VITALS: BP 161/94; PULSE 94; RESP 18
[2018-12-25] MEDS ORDERED: POTASSIUM CHLORIDE (SR) 20 MEQ TAB PO STA (15:45)
[2018-12-25] MEDS ORDERED: POTASSIUM CHLORIDE 20 MEQ POWDER FOR ORAL SOLN PO ONE (16:00)
[2018-12-25] MEDS ORDERED: ONDANSETRON 4 MG INJ IV PRN ×2 (18:00)
[2018-12-25] MEDS ORDERED: POTASSIUM CHLORIDE 100 ML IVPB ONE (18:00)
[2018-12-25] MEDS: morphine 2 MG INJ IV PRN ×2 (18:59→22:27)
[2018-12-25 20:00] VITALS: BP 156/86; PULSE 82; RESP 20
[2018-12-25] MEDS ORDERED: ATORVASTATIN 40 MG TAB PO SCH (21:00)
[2018-12-25] MEDS: INSULIN GLARGINE [LANTus] (100 UNITS/ML) SYG SC SCH (21:47)
[2018-12-25] MEDS: LIDOCAINE 2% VISC 15 ML CUP PO SCH (21:53)
[2018-12-25] MEDS: TAMSULOSIN (SR) 0.4 MG CAP PO SCH (21:53)
[2018-12-26] VITALS (7 sets, daily range): BP systolic 112–182; BP diastolic 79–108; PULSE 81–103; RESP 16–20
[2018-12-26] MEDS: PANTOPRAZOLE 40 MG INJ IV SCH ×2 (04:46→17:04)
[2018-12-26] MEDS: SOD CHLORIDE 0.9% 1,000 ML IV SCH ×2 (04:46→08:29)
[2018-12-26] MEDS: morphine 2 MG INJ IV PRN ×3 (04:51→12:07)
[2018-12-26] MEDS: HEPARIN 5,000 UNIT/1 ML VIAL SC SCH ×2 (08:10→20:43)
[2018-12-26] MEDS: INSULIN ASPART [NOVOLOG] 3 ML PEN SC SCH ×4 (08:10→20:39)
[2018-12-26] MEDS: LIDOCAINE 2% VISC 15 ML CUP PO SCH ×3 (08:11→20:42)
[2018-12-26] MEDS: AMLODIPINE 10 MG TAB PO SCH (08:12)
[2018-12-26] MEDS: CHLORDIAZEPOXIDE 25 MG CAP PO SCH ×3 (08:13→20:43)
[2018-12-26] MEDS: carBAMAZepine (XR) 200 MG TABSR PO SCH ×2 (08:13→20:42)
[2018-12-26] MEDS: FERROUS SULFATE (EC) 325 MG TAB PO SCH (08:13)
[2018-12-26] MEDS: BUPROPION (XL) 150 MG TAB PO SCH (08:13)
[2018-12-26] MEDS: TRIMETHOPRIM/SULFAMETHOX (DS) TAB PO SCH ×2 (08:13→20:42)
[2018-12-26] MEDS: HYDROCHLOROTHIAZIDE 25 MG TAB PO SCH (08:13)
[2018-12-26] MEDS: ASPIRIN (EC) 81 MG TAB PO SCH (08:13)
[2018-12-26] MEDS: FOLIC ACID 1 MG TAB PO SCH (08:13)
[2018-12-26] MEDS ORDERED: BARIUM SULFATE 135 ML (E-Z HD) PO ONE (11:23)
[2018-12-26] MEDS ORDERED: LORAZEPAM 2 MG INJ IV PRN (11:30)
[2018-12-26] MEDS ORDERED: MAGNESIUM SULFATE 2 GM/50 ML 50 ML IVPB ONE (13:00)
[2018-12-26] MEDS: MULTIVITAMINS 10 ML, THIAMINE 100 MG, FOLIC ACID 1 MG in SOD CHLORIDE 0.9% 1,000 ML IVPB SCH (15:25)
[2018-12-26] MEDS ORDERED: HYDROCODONE/APAP (5/325) TAB NGT PRN (16:00)
[2018-12-26] MEDS ORDERED: NALOXONE (0.4 MG/ML) INJ IV ONE (16:00)
[2018-12-26] MEDS ORDERED: LORAZEPAM 2 MG INJ IV ONE (16:30)
[2018-12-26] MEDS: INSULIN GLARGINE [LANTus] (100 UNITS/ML) SYG SC SCH (20:40)
[2018-12-26] MEDS: TAMSULOSIN (SR) 0.4 MG CAP PO SCH (20:55)
[2018-12-27] VITALS (7 sets, daily range): BP systolic 127–167; BP diastolic 72–93; PULSE 90–109; RESP 18–19
[2018-12-27] MEDS: SOD CHLORIDE 0.9% 1,000 ML IV SCH ×3 (02:13→20:22)
[2018-12-27] MEDS: PANTOPRAZOLE 40 MG INJ IV SCH ×2 (05:31→17:23)
[2018-12-27] MEDS: LIDOCAINE 2% VISC 15 ML CUP PO SCH ×3 (08:09→20:08)
[2018-12-27] MEDS: FERROUS SULFATE (EC) 325 MG TAB PO SCH (08:10)
[2018-12-27] MEDS: CHLORDIAZEPOXIDE 25 MG CAP PO SCH ×3 (08:13→20:15)
[2018-12-27] MEDS: carBAMAZepine (XR) 200 MG TABSR PO SCH ×2 (08:13→20:08)
[2018-12-27] MEDS: BUPROPION (XL) 150 MG TAB PO SCH (08:13)
[2018-12-27] MEDS: ASPIRIN (EC) 81 MG TAB PO SCH (08:13)
[2018-12-27] MEDS: TRIMETHOPRIM/SULFAMETHOX (DS) TAB PO SCH (08:13)
[2018-12-27] MEDS: HYDROCHLOROTHIAZIDE 25 MG TAB PO SCH (08:14)
[2018-12-27] MEDS: AMLODIPINE 10 MG TAB PO SCH (08:14)
[2018-12-27] MEDS: MULTIVITAMINS 10 ML, THIAMINE 100 MG, FOLIC ACID 1 MG in SOD CHLORIDE 0.9% 1,000 ML IVPB SCH (08:14)
[2018-12-27] MEDS: HEPARIN 5,000 UNIT/1 ML VIAL SC SCH ×2 (08:17→20:13)
[2018-12-27] MEDS: INSULIN ASPART [NOVOLOG] 3 ML PEN SC SCH ×4 (08:17→20:09)
[2018-12-27] MEDS ORDERED: hydrALAzine 20 MG INJ IV PRN (16:00)
[2018-12-27] MEDS ORDERED: ACETAMINOPHEN 650MG/20.3ML CUP GTB PRN (16:00)
[2018-12-27] MEDS: CEFEPIME 1GM/50 ML (PMX) 50 ML IVPB SCH ×2 (17:23→20:08)
[2018-12-27] MEDS ORDERED: VANCOMYCIN IV PER PHARMACY XX SCH (18:00)
[2018-12-27] MEDS ORDERED: VANCOMYCIN 1.5 GM/NS 250 ML 250 ML IVPB SCH (18:00)
[2018-12-27] MEDS: TAMSULOSIN (SR) 0.4 MG CAP PO SCH (20:08)
[2018-12-27] MEDS: INSULIN GLARGINE [LANTus] (100 UNITS/ML) SYG SC SCH (20:12)
[2018-12-28] VITALS (8 sets, daily range): BP systolic 109–171; BP diastolic 69–100; PULSE 88–106; RESP 18–20
[2018-12-28] MEDS: PANTOPRAZOLE 40 MG INJ IV SCH (04:39)
[2018-12-28] MEDS ORDERED: VANCOMYCIN 750 MG (PMX) 250 ML IVPB SCH (06:00)
[2018-12-28] MEDS: INSULIN ASPART [NOVOLOG] 3 ML PEN SC SCH ×4 (07:50→21:01)
[2018-12-28] MEDS: CHLORDIAZEPOXIDE 25 MG CAP PO SCH (09:00)
[2018-12-28] MEDS: ASPIRIN (EC) 81 MG TAB PO SCH (09:00)
[2018-12-28] MEDS: BUPROPION (XL) 150 MG TAB PO SCH (09:00)
[2018-12-28] MEDS: AMLODIPINE 10 MG TAB PO SCH (09:00)
[2018-12-28] MEDS: carBAMAZepine (XR) 200 MG TABSR PO SCH ×2 (09:00→20:50)
[2018-12-28] MEDS: HYDROCHLOROTHIAZIDE 25 MG TAB PO SCH (09:00)
[2018-12-28] MEDS: FERROUS SULFATE (EC) 325 MG TAB PO SCH (09:00)
[2018-12-28] MEDS: HEPARIN 5,000 UNIT/1 ML VIAL SC SCH ×2 (09:00→21:01)
[2018-12-28] MEDS: LIDOCAINE 2% VISC 15 ML CUP PO SCH ×3 (09:00→20:50)
[2018-12-28] MEDS: CEFEPIME 1GM/50 ML (PMX) 50 ML IVPB SCH (10:09)
[2018-12-28] MEDS: MULTIVITAMINS 10 ML, THIAMINE 100 MG, FOLIC ACID 1 MG in SOD CHLORIDE 0.9% 1,000 ML IVPB SCH (10:47)
[2018-12-28] MEDS ORDERED: PROPOFOL 40 ML ONE (15:47)
[2018-12-28] MEDS ORDERED: FENTAnyl 50 MCG/ML VIAL ONE (15:47)
[2018-12-28] MEDS ORDERED: LIDOCAINE 2% (SDV) 5 ML INJ ONE (15:47)
[2018-12-28] MEDS: morphine 2 MG INJ IV PRN (20:51)
[2018-12-28] MEDS: INSULIN GLARGINE [LANTus] (100 UNITS/ML) SYG SC SCH (21:02)
[2018-12-28] MEDS: TAMSULOSIN (SR) 0.4 MG CAP PO SCH (21:15)
[2018-12-29 04:13] VITALS: BP 154/68; PULSE 94; RESP 20
[2018-12-29] MEDS: PANTOPRAZOLE (EC) 40 MG TAB PO SCH ×2 (05:27→17:44)
[2018-12-29 07:46] VITALS: BP 177/90; PULSE 85; RESP 18
[2018-12-29] MEDS: LIDOCAINE 2% VISC 15 ML CUP PO SCH ×3 (08:23→20:44)
[2018-12-29] MEDS: carBAMAZepine (XR) 200 MG TABSR PO SCH ×2 (08:24→20:45)
[2018-12-29] MEDS: ASPIRIN (EC) 81 MG TAB PO SCH (08:24)
[2018-12-29] MEDS: BUPROPION (XL) 150 MG TAB PO SCH (08:24)
[2018-12-29] MEDS: HYDROCHLOROTHIAZIDE 25 MG TAB PO SCH (08:25)
[2018-12-29] MEDS: AMLODIPINE 10 MG TAB PO SCH (08:25)
[2018-12-29] MEDS: INSULIN ASPART [NOVOLOG] 3 ML PEN SC SCH ×4 (08:28→20:53)
[2018-12-29] MEDS: HEPARIN 5,000 UNIT/1 ML VIAL SC SCH ×2 (08:28→20:52)
[2018-12-29] MEDS: morphine 2 MG INJ IV PRN ×2 (10:11→20:58)
[2018-12-29 11:58] VITALS: BP 155/88; PULSE 85; RESP 18
[2018-12-29 16:46] VITALS: BP 143/81; PULSE 83; RESP 18
[2018-12-29] MEDS: SUCRALFATE (100 MG/ML) 10ML CUP PO SCH ×2 (17:40→20:44)
[2018-12-29 20:10] VITALS: BP 175/98; PULSE 89; RESP 18
[2018-12-29] MEDS: TAMSULOSIN (SR) 0.4 MG CAP PO SCH (20:45)
[2018-12-29] MEDS: INSULIN GLARGINE [LANTus] (100 UNITS/ML) SYG SC SCH (20:52)
[2018-12-30 00:03] VITALS: BP 137/86; PULSE 83; RESP 19
[2018-12-30 03:33] VITALS: BP 127/80; PULSE 94; RESP 18
[2018-12-30] MEDS: PANTOPRAZOLE (EC) 40 MG TAB PO SCH ×2 (06:13→17:15)
[2018-12-30 07:14] VITALS: BP 149/85; PULSE 81; RESP 20
[2018-12-30] MEDS: INSULIN ASPART [NOVOLOG] 3 ML PEN SC SCH ×4 (08:20→20:25)
[2018-12-30] MEDS: SUCRALFATE (100 MG/ML) 10ML CUP PO SCH ×4 (09:19→20:15)
[2018-12-30] MEDS: LIDOCAINE 2% VISC 15 ML CUP PO SCH ×3 (09:19→20:15)
[2018-12-30] MEDS: BUPROPION (XL) 150 MG TAB PO SCH (09:19)
[2018-12-30] MEDS: AMLODIPINE 10 MG TAB PO SCH (09:20)
[2018-12-30] MEDS: ASPIRIN (EC) 81 MG TAB PO SCH (09:20)
[2018-12-30] MEDS: HYDROCHLOROTHIAZIDE 25 MG TAB PO SCH (09:20)
[2018-12-30] MEDS: carBAMAZepine (XR) 200 MG TABSR PO SCH ×2 (09:20→20:15)
[2018-12-30] MEDS: HEPARIN 5,000 UNIT/1 ML VIAL SC SCH ×2 (09:24→20:29)
[2018-12-30] MEDS: morphine 2 MG INJ IV PRN ×3 (09:32→20:15)
[2018-12-30 11:14] VITALS: BP 144/90; PULSE 86; RESP 20
[2018-12-30 15:23] VITALS: BP 114/77; PULSE 85; RESP 20
[2018-12-30] MEDS: TAMSULOSIN (SR) 0.4 MG CAP PO SCH (20:19)
[2018-12-30 20:24] VITALS: BP 146/83; PULSE 96; RESP 18
[2018-12-30] MEDS: INSULIN GLARGINE [LANTus] (100 UNITS/ML) SYG SC SCH (20:25)
[2018-12-31 00:06] VITALS: BP 103/66; PULSE 94; RESP 18
[2018-12-31 04:17] VITALS: BP 111/61; PULSE 88; RESP 16
[2018-12-31] MEDS: PANTOPRAZOLE (EC) 40 MG TAB PO SCH ×2 (05:58→17:38)
[2018-12-31 07:18] VITALS: BP 122/80; PULSE 100; RESP 20
[2018-12-31] MEDS: LIDOCAINE 2% VISC 15 ML CUP PO SCH ×3 (07:51→20:28)
[2018-12-31] MEDS: SUCRALFATE (100 MG/ML) 10ML CUP PO SCH ×4 (07:51→20:33)
[2018-12-31] MEDS: carBAMAZepine (XR) 200 MG TABSR PO SCH ×2 (07:51→20:33)
[2018-12-31] MEDS: HYDROCHLOROTHIAZIDE 25 MG TAB PO SCH (07:52)
[2018-12-31] MEDS: ASPIRIN (EC) 81 MG TAB PO SCH (07:52)
[2018-12-31] MEDS: BUPROPION (XL) 150 MG TAB PO SCH (07:53)
[2018-12-31] MEDS: morphine 2 MG INJ IV PRN ×3 (07:53→20:34)
[2018-12-31] MEDS: AMLODIPINE 10 MG TAB PO SCH (07:56)
[2018-12-31] MEDS: HEPARIN 5,000 UNIT/1 ML VIAL SC SCH (08:12)
[2018-12-31] MEDS: INSULIN ASPART [NOVOLOG] 3 ML PEN SC SCH ×4 (08:12→20:36)
[2018-12-31 11:21] VITALS: BP 131/88; PULSE 100; RESP 20
[2018-12-31 15:40] VITALS: BP 109/78; PULSE 99; RESP 20
[2018-12-31 20:00] VITALS: BP 122/75; PULSE 94; RESP 20
[2018-12-31] MEDS: traZODone 50 MG TAB PO PRN (20:33)
[2018-12-31] MEDS: TAMSULOSIN (SR) 0.4 MG CAP PO SCH (20:33)
[2018-12-31] MEDS ORDERED: INSULIN GLARGINE [LANTus] (100 UNITS/ML) SYG SC SCH (21:00)
[2019-01-01] VITALS (16 sets, daily range): BP systolic 109–156; BP diastolic 55–90; PULSE 81–91; RESP 11–18
[2019-01-01] MEDS: morphine 2 MG INJ IV PRN ×2 (02:21→06:45)
[2019-01-01] MEDS: PANTOPRAZOLE (EC) 40 MG TAB PO SCH (06:00)
[2019-01-01] MEDS: INSULIN ASPART [NOVOLOG] 3 ML PEN SC SCH ×2 (07:43→13:08)
[2019-01-01] MEDS: carBAMAZepine (XR) 200 MG TABSR PO SCH (08:45)
[2019-01-01] MEDS: ASPIRIN (EC) 81 MG TAB PO SCH (08:45)
[2019-01-01] MEDS: BUPROPION (XL) 150 MG TAB PO SCH (08:45)
[2019-01-01] MEDS: SUCRALFATE (100 MG/ML) 10ML CUP PO SCH ×2 (08:45→13:00)
[2019-01-01] MEDS: HYDROCHLOROTHIAZIDE 25 MG TAB PO SCH (08:45)
[2019-01-01] MEDS: AMLODIPINE 10 MG TAB PO SCH (08:45)
[2019-01-01] MEDS: LIDOCAINE 2% VISC 15 ML CUP PO SCH ×2 (08:45→13:00)
[2019-01-01] MEDS ORDERED: MINERAL OIL LIGHT 10 ML VIAL ONE (10:17)
[2019-01-01] MEDS ORDERED: POLYMYXIN/BACITRACIN 1L IRRIG ONE (10:17)
[2019-01-01] MEDS ORDERED: ONDANSETRON 4 MG INJ IV PRN (10:30)
[2019-01-01] MEDS ORDERED: LABETALOL HCL 20MG INJ IV PRN (10:30)
[2019-01-01] MEDS ORDERED: OXYCODONE/ACETAMINOPHEN (5/325) TAB PO PRN ×2 (10:30)
[2019-01-01] MEDS ORDERED: MEPERIDINE 25 MG INJ IV PRN (10:30)
[2019-01-01] MEDS ORDERED: HYDROmorphONE 1 MG/5 ML IV SYRINGE IV PRN ×3 (10:30)
[2019-01-01] MEDS ORDERED: hydrALAzine 20 MG INJ IV PRN (10:30)
[2019-01-01] MEDS ORDERED: DESFLURANE 15 MIN ONE (10:56)
[2019-01-01] MEDS ORDERED: CEFAZOLIN 1 GM INJ ONE (10:56)
[2019-01-01] MEDS ORDERED: LIDOCAINE 2% (SDV) 5 ML INJ ONE (10:56)
[2019-01-01] MEDS ORDERED: PROPOFOL 20 ML ONE (10:56)
[2019-01-01] MEDS ORDERED: MIDAZOLAM 1 MG/ML 2 ML INJ ONE (10:56)
[2019-01-01] MEDS ORDERED: FENTAnyl 50 MCG/ML VIAL ONE (10:56)
[2019-01-01] MEDS ORDERED: LIDOCAINE 1% (MPF) 30 ML INJ ONE (11:16)
[2019-01-01] MEDS ORDERED: LIDOCAINE 1%/EPI 30 ML INJ ONE (11:16)
[2019-01-01] MEDS ORDERED: METOCLOPRAMIDE 10 MG INJ ONE (11:21)
[2019-01-01] MEDS ORDERED: ONDANSETRON 4 MG INJ ONE (11:21)
[2019-01-01] MEDS ORDERED: EPHEDrine 25 MG/5 ML SYG ONE (11:24)
== END 2019-01-01 16:27 | disposition home or self-care (01) | DRG 982 ==
LOC: E/R 11:52 → TEL 20:57 → OBSVTOIN 12-25 16:06
PROVIDERS: ADMIT Internal Medicine; ATTEND Internal Medicine
PROC: 0HRMX74 Replacement of Right Foot Skin with Autologous Tissue Substitute, Partial Thickness, External Approach (ICD-10-PCS; 2019-01-01)
PROC: 0HBKXZZ Excision of Right Lower Leg Skin, External Approach (ICD-10-PCS; 2019-01-01)
PROC: 0DB68ZX Excision of Stomach, Via Natural or Artificial Opening Endoscopic, Diagnostic (ICD-10-PCS; principal; 2019-01-01 13:00)
DX: K20.9 Esophagitis, unspecified (principal); R65.10 Systemic inflammatory response syndrome (SIRS) of non-infectious origin without acute organ dysfunction; F10.239 Alcohol dependence with withdrawal, unspecified; N17.9 Acute kidney failure, unspecified; E11.621 Type 2 diabetes mellitus with foot ulcer; E86.0 Dehydration; E11.65 Type 2 diabetes mellitus with hyperglycemia; Z79.4 Long term (current) use of insulin; L08.89 Other specified local infections of the skin and subcutaneous tissue; G40.909 Epilepsy, unspecified, not intractable, without status epilepticus; D72.829 Elevated white blood cell count, unspecified; R13.10 Dysphagia, unspecified; E87.6 Hypokalemia; R74.0 Nonspecific elevation of levels of transaminase and lactic acid dehydrogenase [LDH]; N40.0 Benign prostatic hyperplasia without lower urinary tract symptoms; E78.5 Hyperlipidemia, unspecified; E11.42 Type 2 diabetes mellitus with diabetic polyneuropathy; Z87.891 Personal history of nicotine dependence; G47.00 Insomnia, unspecified; Z91.19 Patient's noncompliance with other medical treatment and regimen; I12.9 Hypertensive chronic kidney disease with stage 1 through stage 4 chronic kidney disease, or unspecified chronic kidney disease; N18.9 Chronic kidney disease, unspecified; D63.1 Anemia in chronic kidney disease; E11.22 Type 2 diabetes mellitus with diabetic chronic kidney disease; Z89.431 Acquired absence of right foot
CPT/HCPCS: 70490; 71045; 71250; 73630; 74230; 76705; 80048; 80053; 80076; 80307; 81001; 81003; 82962; 83036; 83605; 83690; 83735; 84100; 84484; 85025; 86704; 86709; 86803; 87086; 87340; 88305; 92610; 93005; 96360; 97110; 97116; 97162; 97530; G0378; C9113; J0360; J0690; J0692; J1644; J1815; J2060; J2250; J2270; J2310; J2405; J2765; J3010; J3370; J3411; J3475; J3480; J7030; J7120; Q9967